=== PATIENT | male | born 1965 | race African-American/Black ===

== ENCOUNTER 2022-05-17 05:33 | Inpatient (IN) | payer MEDICAID, SELFPAY ==
[2022-05-17] VITALS (44 sets, daily range): BP systolic 160–199; BP diastolic 107–137; PULSE 74–114; RESP 11–27; TEMP 36.3–36.8; O2SAT 95–100; BMI 29.5
--- NOTE | 2022-05-17 | ECHO_ITS ---
Patient Info Name: Piter Donahue Age: 56 years : 1965 Gender: Male Ht: 72 in Wt: 200 lbs BSA: 2.16 m2 HR: 93 bpm BP: 188 / 128 mmHg Heart Rhythm: Sinus Rhythm Technical Quality: Good Exam Date: 05/17/2022 2:01 PM Exam Location: [facility] Patient Status: Inpatient Admit Date: 05/17/2022 Staff Ordering Physician: Ashley Garner NP Product Designer: Olga Walker RDCS Attending Provider: Krista Hodgson MD Referring Physician: Pascual VINCENT; Exam Type: CA echo dop color flow w con Study Info Indications - pulmonary edema Complete two-dimensional, color flow and Doppler transthoracic echocardiogram is performed with contrast to opacify the left ventricle and to improve the deliniation of the left ventricle endocardial borders. Contrast/Agitated Saline Contrast/Ag. Saline: Definity Amount: 3.00 ml Administered By: Olga Walker RDCS Existing IV Access: Yes IV Access Condition: patent with no signs of infiltration Summary 1. Mild left ventricular enlargement with severe eccentric hypertrophy. Moderate global hypokinesis with no segmental wall motion abnormalities. Ejection fraction 40-45%. The myocardium had an unusual echodense texture of uncertain significance. 2. Left atrial chamber dimension is moderately enlarged. 3. There is mild aortic valve regurgitation. 4. There is mild mitral valve regurgitation. 5. There is mild tricuspid valve regurgitation. 6. Mild pulmonary hypertension, estimated pulmonary arterial systolic pressure is 41 mmHg. 7. Dilated sinus of Valsalva, 4.5 cm. 8. Normal sinus rhythm. Left Ventricle Left ventricular chamber dimension is mildly enlarged. Left ventricular systolic function is moderately reduced, estimated at 40-45%. There is mild concentric increased left ventricular wall thickness. Left ventricular septal wall motion is normal. The left ventricular diastolic function is grade III diastolic dysfunction. Right Ventricle Right ventricular chamber dimension is normal. Right ventricular systolic function is normal. Left Atria Left atrial chamber dimension is moderately enlarged. Right Atria Right atrial chamber dimension is normal. Aortic Valve The aortic valve is trileaflet. There is no aortic valve sclerosis. There is no aortic valve stenosis. There is mild aortic valve regurgitation. Pulmonic Valve The pulmonic valve is normal. There is no pulmonic valve stenosis. There is no pulmonic regurgitation. Mitral Valve The mitral valve has normal leaflets. There is no mitral valve stenosis. There is mild mitral valve regurgitation. Tricuspid Valve The tricuspid valve leaflets are normal. There is no significant tricuspid valve stenosis. There is mild tricuspid valve regurgitation. Mild pulmonary hypertension, estimated pulmonary arterial systolic pressure is 41 mmHg. Pericardium/Pleural The pericardium appears normal. There is no pericardial effusion. Inferior Vena Cava Normal inferior vena cava with >50% collapse upon inspiration consistent with Empty right atrial pressure, 10 mmHg. Aorta The aortic root size at the sinus of Valsalva is mildly dilated. The prox ascending aorta size is normal. Left Ventricular Outflow Tract Name Value Normal
--- NOTE | ~2022-05-17 | XR_ITS ---
EXAMINATION: XR fl guide central line place DATE: 05/19/2022 12:51 INDICATION: Central line placement. TECHNIQUE: 2 intraoperative fluoroscopic views of the chest were obtained. I was not present. Fluoros copy exposure time was 99 seconds. COMPARISON: Chest single view 05/19/2022 FINDINGS: A right internal jugular central venous catheter is seen with tip in the proximal right atr ium. IMPRESSION: 1. Central line tip in proximal right atrium. Reviewed, dictated and finalized at location A. COOK
--- NOTE | ~2022-05-17 | CT_ITS ---
EXAMINATION: CTA chest PE protocol DATE: 05/17/2022 06:52 INDICATION: Shortness of breath. TECHNIQUE: Computed tomography angiography (CTA) of the chest was performed with 100 mL Omnipaque-350 intravenous contrast timed to evaluate the pulmonary arteries. Coronal maximum intensity projection 3D-reconstructions were created by the technologist. Automated exposure control and iterative reconst ruction technique were employed. The dose-length product was 533.80 mGy-cm. COMPARISON: Chest 2 views 05/17/2022 FINDINGS: There is septal thickening in the lungs with a lower lung predominance. There are dependent groundglass opacities in the lower lobes. There is a small cluster of nodules measuring up to 3 mm i n right upper lobe, likely benign. There are trace pleural effusions. Cardiomegaly is noted. There is a multinodular goiter extending into the mediastinum with rightward displacement of the trachea. The re is mild mediastinal lymphadenopathy. There is no pulmonary embolus. There are multiple cysts in th e liver measuring up to 5.0 cm. The partially visualized kidneys are enlarged with innumerable cysts. There is mild thoracic spondylosis. IMPRESSION: 1. Diffuse lung disease, likely moderate pulmonary edema. 2. Cardiomegaly. 3. No pulmonary embolus. Sensitivity is moderately decreased by motion artifact. 4. Polycystic kidney disease. 5. 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 6. Mild mediastinal lymphadenopathy, likely reactive. Reviewed, dictated and finalized at location A. E OPT[employer] JOINTER IMPRESSION: 1. Diffuse lung disease, likely moderate pulmonary edema. 2. Cardiomegaly. 3. No pulmonary embolus. Sensitivity is moderately decreased by motion artifact . 4. Polycystic kidney disease. 5. 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 6. Mild mediastinal lymphadenopathy, likely reactive.
--- NOTE | ~2022-05-17 | XR_ITS ---
EXAMINATION: XR chest 1V portable DATE: 05/19/2022 06:34 INDICATION: Pulmonary edema. TECHNIQUE: A single frontal view of the chest was obtained. COMPARISON: Chest single view 05/17/2022, chest CT 05/17/2022 FINDINGS: There is no pneumonia, pleural effusion, or pneumothorax. Cardiomegaly is noted. There is a n intrathoracic goiter with rightward displacement of the trachea. IMPRESSION: 1. Cardiomegaly. 2. Intrathoracic goiter. Reviewed, dictated and finalized at location A. AGE SUPERVISOR
--- NOTE | ~2022-05-17 | XR_ITS ---
EXAMINATION: XR chest 1V portable DATE: 05/25/2022 06:32 INDICATION: Confusion. TECHNIQUE: A single frontal view of the chest was obtained. COMPARISON: Chest 2 views 05/21/2022, chest CT 05/17/2022 FINDINGS: There is no pneumonia, pleural effusion, or pneumothorax. Cardiomegaly is noted. There is a n intrathoracic goiter with rightward displacement of the trachea. A right internal jugular central v enous catheter is seen with tip in the right atrium. IMPRESSION: 1. Cardiomegaly. 2. Intrathoracic goiter. Reviewed, dictated and finalized at location A. ER FABRICATOR
--- NOTE | ~2022-05-17 | XR_ITS ---
EXAMINATION: XR chest 2V DATE: 05/21/2022 10:42 INDICATION: Pulmonary edema TECHNIQUE: AP and lateral views of the chest are obtained. COMPARISON: 05/19/2022 FINDINGS: The lungs are free of acute opacities. No pleural effusion or pneumothorax. Cardiomegaly is noted. A right internal jugular central venous catheter ends with its tip in the proximal right atri um. The visualized bones and soft tissues are unremarkable. IMPRESSION: 1. Cardiomegaly. Reviewed, dictated and finalized at location A. E TREKKING GUIDE IMPRESSION: 1. Cardiomegaly.
--- NOTE | ~2022-05-17 | NM_ITS ---
EXAMINATION: NM lexy stress w perfusion DATE: 05/22/2022 13:44 INDICATION: Congestive heart failure. Elevated troponin. TECHNIQUE: Rest images were obtained following intravenous administration of 9 mCi Tc99m tetrofosmin (Myoview). The patient was infused intravenously with Lexiscan (regadenoson). Then, 28.3 mCi Tc99m te trofosmin (Myoview) was administered intravenously, and stress images were obtained. Data was reconst ructed into short axis and horizontal and vertical long axis SPECT images. Gated SPECT images were al so obtained. COMPARISON: Chest CT 05/17/2022 FINDINGS: There is increased activity below the diaphragm. There is no definite reversible or fixed p erfusion abnormality to suggest ischemia or infarction. There is no segmental wall motion abnormalit y. Left ventricular ejection fraction measures 51%. IMPRESSION: 1. No definite ischemia or infarct. Increased activity below the diaphragm decreases sensitivity and specificity in the inferior wall. 2. Normal left ventricular ejection fraction measuring 51%. Reviewed, dictated and finalized at location A. GER RESEARCH DEVELOPMENT IMPRESSION: 1. No definite ischemia or infarct. Increased activity below the diaphragm decr eases sensitivity and specificity in the inferior wall. 2. Normal left ventricular ejection fraction measuring 51%.
--- NOTE | ~2022-05-17 | XR_ITS ---
EXAMINATION: XR chest 2V DATE: 05/17/2022 06:34 INDICATION: Difficulty breathing. TECHNIQUE: Frontal and lateral views of the chest were obtained. COMPARISON: Chest CT 05/17/2022 FINDINGS: There is an interstitial pattern in the lungs, consistent with mild pulmonary edema. No ple ural effusion or pneumothorax. Cardiomegaly is noted. There is rightward deviation of the trachea sec ondary to a goiter. IMPRESSION: 1. Mild pulmonary edema. 2. Cardiomegaly. 3. Goiter. Reviewed, dictated and finalized at location A. DDED FILLER CIGAR MAKER MACHINE
--- NOTE | ~2022-05-17 | XR_ITS ---
EXAMINATION: XR chest 1V portable Exam Date/Time: 05/17/2022 19:30 IGNITER CAPPER HISTORY: acute dyspnea X TODAY, HX CHF, ELEVATED TROP Comparison: X-ray chest and CTPA, same date. RESULT: Lines, tubes, and devices: None. Lungs and pleura: Increased bilateral diffuse reticular opacities. Cephalization. Cardiomediastinal silhouette: Stable cardiomegaly and intrathoracic goiter with rightward tracheal d isplacement. Other: No acute osseous or upper abdominal finding. IMPRESSION: Pulmonary opacities likely represent slightly worsening interstitial edema. Reviewed, dictated and finalized at location K. TER CAPPER
--- NOTE | ~2022-05-17 | US_ITS ---
EXAMINATION: US thyroid DATE: 05/17/2022 15:23 INDICATION: Goiter. TECHNIQUE: Multiple ultrasound images of the thyroid were obtained. COMPARISON: None. FINDINGS: The right thyroid lobe measures 6.3 x 2.0 x 1.3 cm. The left thyroid lobe measures 7.0 x 4.0 x 6.5 c m. There is normal echotexture and echogenicity throughout the thyroid gland. Small, 3 mm cyst in th e right isthmus of doubtful clinical significance. 5.7 x 4.1 x 5.2 cm solid isoechoic, wider than leo l, circumscribed left thyroid nodule, with no internal echogenic foci. Normal vascular flow is presen t. IMPRESSION: 1. Moderately suspicious (TR 4) 5.7 cm left thyroid nodule, recommend FNA for further characterizatio n. Reviewed, dictated and finalized at location K. CTOR OF SECURITIES AND REAL ESTATE IMPRESSION: 1. Moderately suspicious (TR 4) 5.7 cm left thyroid nodule, recommend FNA for f urther characterization.
--- NOTE | ~2022-05-17 | US_ITS ---
EXAMINATION: US FNA w image guidance DATE: 05/26/2022 09:46 INDICATION: Thyroid nodule. TECHNIQUE: The procedure and its benefits and risks were discussed with the patient. Risks specifically discusse d included bleeding. The patient verbalized understanding of the risks and agreed to proceed. The nec k was prepped and draped in the usual sterile manner. 1% lidocaine was used for local anesthesia. 7 passes were made with a 25G needle into the lesion under ultrasound guidance. There were no immedia te complications. FINDINGS: Grayscale ultrasound images demonstrate needles advanced into a 5.7 cm nodule in left thyroid lobe fo r biopsy. IMPRESSION: 1. Ultrasound-guided fine needle aspiration of a left thyroid nodule. Reviewed, dictated and finalized at location A. OID DEVELOPER
--- NOTE | ~2022-05-17 | US_ITS ---
EXAMINATION: US renal BI DATE: 05/17/2022 07:57 INDICATION: Polycystic kidney disease. TECHNIQUE: Multiple ultrasound grayscale images of the kidneys were obtained. COMPARISON: Chest CT 05/17/2022 FINDINGS: The right kidney measures 20.9 x 12.2 x 11.3 cm. The left kidney measures 24.4 x 13.0 x 14.1 cm. Innu merable cysts fill the kidneys measuring up to 7.9 cm on the right. There is no hydronephrosis. The b ladder is decompressed and not visualized. IMPRESSION: 1. Polycystic kidney disease. Reviewed, dictated and finalized at location A. FACTURED BUILDINGS SUPERVISOR
--- NOTE | ~2022-05-17 | XR_ITS ---
Portable chest x-ray Comparison: 05/19/2022 at 5:55 AM Clinical History: Line placement Findings: Status post interval placement of right-sided central venous line, tip in the right atrium . Lungs are clear, without focal consolidation or pleural effusion. No pneumothorax. Cardiomediastin al silhouette is stable. Bones and soft tissues are unremarkable. Impression: Support line, as above. Clear lungs. Reviewed, dictated and finalized at location [] DENTIAL LAWN SPECIALIST Impression: Support line, as above. Clear lungs.
--- NOTE | 2022-05-17 05:37 | ECG_ITS ---
Measurements Intervals [place] Rate: 98 P: 50 OK: 132 QRS: -16 QRSD: 91 T: 134 QT: 382 QTc: 489 Interpretive Statements SINUS RHYTHM POSSIBLE LEFT ATRIAL ENLARGEMENT [-0.1mV P WAVE IN V1/V2] POSSIBLE LEFT VENTRICULAR HYPERTROPHY [VOLTAGE CRITERIA PLUS LAE OR QRS WIDENING] MODERATE T-WAVE ABNORMALITY, CONSIDER LATERAL ISCHEMIA [-0.1+ mV T WAVE IN I/aVL/V5/V6] NO PREVIOUS ECG AVAILABLE FOR COMPARISON Electronically Signed On 05-17-2022 13:19:44 ACID TESTER by Sawyer Woods M.D.
[2022-05-17] MEDS: NITROGLYCERIN OINTMENT 1 INCH DOSE TRANSDERM (05:53)
[2022-05-17 05:57] LABS: Basophils Percent Auto 0.5 % (0.2-1.2); Eosinophils Absolute Auto 0.4 K/mm3 (0-0.3); Hematocrit 23.5 % (42.0-52.0); Hemoglobin 7.5 g/dL (14.0-18.0); Immature Granulocyte Absolute 0.03 K/mm3 (0.00-0.031); Immature Granulocyte Percent A 0.4 % (0-0.5); Lymphocytes Absolute Auto 1.74 K/mm3 (0.9-3.2); Lymphocytes Percent Auto 22.9 % (18.3-44.2); Mean Corpuscular HGB Conc 31.9 g/dl (32-36); Mean Corpuscular Hemoglobin 28.7 pg (26-34); Mean Platelet Volume 9.9 fl (7.4-10.4); Monocytes Absolute Auto 0.5 K/mm3 (0.1-0.6); Monocytes Percent Auto 6.9 % (2.6-8.5); Neutrophils Absolute Auto 4.9 K/mm3 (1.3-6.7); Neutrophils Percent Auto 64.3 % (45.5-73.1); Platelet Count Result 191 k/mm3 (150-375); Red Blood Count 2.61 M/mm3 (4.6-6.20); Red Cell Distribution Width 14.2 % (11.5-14.5); White Blood Count 7.6 K/mm3 (4.5-10.0)
--- NOTE | 2022-05-17 05:59 | ED.GENADULT ---
HPI - General Adult General Chief complaint: Shortness of Breath/Dyspnea Stated complaint: DIFFICULTY BREATHING Time Seen by Provider: 05/17/22 05:48 History of Present Illness HPI narrative: This is a 56-year-old male presenting ED with difficulty breathing. Patient says that over last several days it has been getting worse. It is worse at night when he tries to lay flat. He has also noticed swelling of his lower extremities. Patient also notes that food has been tasting more bland than usual. He is vaccinated against COVID. He is not vaccinated against flu.Patient denies fever, chills, chest pain. The patient called EMS tonight when he had acutely worse. EMS treated him with aspirin and nitro which helped improve his symptoms. Related Data Allergies Allergy/AdvReac Type Severity Reaction Status Date / Time No Known Allergies Allergy Verified 05/17/22 06:41 Review of Systems Review of Systems: CONSTITUTIONAL: Denies night sweats. EYES: No eye pain ENT: Denies rhinorrhea CARDIOVASCULAR: Denies palpitations RESPIRATORY: Denies hemoptysis GASTROINTESTINAL: Denies hematemesis GENITOURINARY: Denies hematuria. SKIN: Denies rash MUSCULOSKELETAL: Denies myalgia. NEUROLOGIC: Denies weakness. PSYCHIATRIC: Denies delusions PMFSH Past Medical History Medical History Healthy adult male Social History Social History (Updated 05/17/22 @ 06:03 by Eduard Gooden MD) Social History: Negative for alcohol cigarettes or tobacco. Exam Narrative: APPEARANCE: No apparent distress. Patient appears younger than his stated age he is physically fit, he has played during the interview. Head: atraumatic. EYES: EOMI, NOSE: Atraumatic NECK: Trachea midline RESPIRATORY: Increased respiratory rate, scattered rhonchi in the right lower lobe. CARDIOVASCULAR: RRR, Tachycardic ABDOMINAL: Non-distended, nontender no guarding or rebound MUSCULOSKELETAl: No obvious deformities NEURO: Alert. Moving 4/4 extremities SKIN:: Warm, dry. Normal color PSYCHIATRIC: Normal affect point of care cardiac ultrasound revealed norm ir normal to mildly decreased EF. There are scattered B-lines indicating pulmonary edema which can be seen with infiltrates versus viral pneumonia. Incidental findings include 2 cystic structures in the region of the kidneys. Medical Decision Making MDM Narrative Medical decision making narrative: This is a 56-year-old male presenting to ED with difficulty breathing. differential includes flash pulmonary edema, new onset heart failure, COVID 19 infection, pneumonia. Cardiac ultrasound showed diffuse B lines which have consistent with pulmonary edema. Patient was given transdermal nitro paste. While doing a cardiac ultrasound I did see the patient has multiple cystic structures where his kidneys should be. He has no history of kidney dysfunction, or family history of renal failure. Renal ultrasound has been ordered to evaluation. patient will be worked up for on differentiated shortness of breath including lab work, EKG and chest x-ray. EKG interpretation: Rhythm [sinus], Rate 98, [place] -[normal], [place] -[normal], QRS [narrow], QTC [normal], T waves - T-wave inversions in 1 and aVL, ST Segments - [Negative for concerning elevations] Final interpretations: normal sinus rhythm with T-wave inversions in 1 and aVL flu swabs were negative. D-dimer was elevated and a CT PE was ordered. CT PE was interpreted: IMPRESSION: 1. Diffuse lung disease, likely moderate pulmonary edema. 2. Cardiomegaly. 3. No pulmonary embolus. Sensitivity is moderately decreased by motion artifact. 4. Polycystic kidney disease. 5. 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 6. Mild mediastinal lymphadenopathy, likely reactive. Patient's lab work was significant for hemoglobin of 7.5. Additionally his BUN is 131 with a creatinine of 21.5. Potassium is 4
[2022-05-17 06:09] LABS: INR 1.1; Prothrombin Time 13.4 Seconds (11.1-14.7)
[2022-05-17 06:10] LABS: Partial Thromboplastin Time 29.7 SECONDS (22.3-36.8)
[2022-05-17 06:16] LABS: Alanine Aminotransferase 28 U/L (6-50); Albumin Level 3.3 g/dL (3.5-5.1); Alkaline Phosphatase 95 U/L (38-126); Anion Gap 11 mmol/L (8-16); Aspartate Amino Transferase 34 U/L (17-59); Bilirubin,Total 0.2 mg/dL (0.2-1.3); Carbon Dioxide 18 mmol/L (22-30); Chloride 110 mmol/L (98-107); Glucose 104 mg/dL (65-110); NT Pro B Type Natriuretic Pept 13100 pg/mL (5-100); Potassium 4.6 mmol/L (3.4-5.0); Sodium 139 mmol/L (137-145)
[2022-05-17 06:18] LABS: D Dimer 2.59 ug/mL (<0.48)
[2022-05-17 06:27] LABS: Influenza A QL RT-PCR Negative (Negative); Influenza B QL RT-PCR Negative (Negative); RSV RNA, RT-PCR Negative (Negative); SARS-CoV-2 RNA PCR Negative
[2022-05-17 06:39] LABS: Blood Urea Nitrogen 131 mg/dL (9-20)
[2022-05-17 06:52] LABS: Troponin I 0.102 ng/mL (0.000-0.034)
[2022-05-17 07:04] LABS: Estimated Glomerular Filt Rate 3
[2022-05-17 12:16] LABS: Troponin I 0.125 ng/mL (0.000-0.034)
--- NOTE | 2022-05-17 12:37 | PM.IMHP ---
H&P: HPI History of Present Illness Date/Time: 05/17/22 12:37 Chief Complaint: Shortness of breath Narrative: This is a 56-year-old male patient presenting to the emergency room with complaints of shortness of breath. The patient has no medical history and is not taking any medication. The patient stated over the last several days he has become more short of breath and cannot lay flat when sleeping at night. He also has edema to his lower extremities. The patient denied any fever chills or chest pain. The patient activated EMS and was given nitro and aspirin in route. Patient's H&H is 7.5 and 23.5. His D-dimer was 2.59. BUN is 131 creatinine 21.5. Nephrology has been consulted. Troponin 0.10 and 0.125 BNP [id number]. He is negative for influenza a B RSV and COVID. Renal ultrasound was read as polycystic kidney disease. Chest CTA was read as the following1. Diffuse lung disease, likely moderate pulmonary edema. 2. Cardiomegaly. 3. No pulmonary embolus. Sensitivity is moderately decreased by motion artifact. 4. Polycystic kidney disease. 5. 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 6. Mild mediastinal lymphadenopathy, likely reactive. Chest x-ray was read as some mild pulmonary edema. Cardiomegaly. Goiter Patient's blood pressures were 199/130 and 173/124. The patient was given nitro paste, labetalol, hydralazine, and Bumex the patient is being admitted to inpatient status on the date of service of 05/17/2022.. Review of Systems Review of Systems: See HPI All systems reviewed & are unremarkable except as noted in HPI and below Constitutional: Constitutional: Reports as per HPI and Reports no additional constitutional complaints Eyes: Eyes: Reports as per HPI and Reports no additional eye complaints ENT: Reports system reviewed and no additional complaints, except as documented and Reports Normal hearing present Cardiovascular: Cardiovascular: Reports no additional cardiovascular complaints Respiratory: Respiratory: Reports no additional respiratory complaints and Reports no additional respiratory complaints Gastrointestinal: Gastrointestinal: Reports as per HPI and Reports no additional gastrointestinal complaints Musculoskeletal: Musculoskeletal: Reports no additional musculoskeletal complaints Integumentary/Breasts: Skin/Breast: Reports system reviewed and no additional complaints, except as docu and Reports as per HPI Neurologic: Reports system reviewed and no additional complaints, except as documented, Reports as per HPI and Reports Normal hearing present Psychiatric: Psychiatric: Reports no additional psychiatric complaints and Reports as per HPI Endocrine: Endocrine: Reports no additional endocrine complaints Hematologic/Lymphatic: Hematologic/Lymphatic: Reports no additional hematologic/lymphatic complaints Allergic/Immunologic: Allergic/Immunologic: Reports no additional allergic/immunologic complaints PMF Past Medical History Medical History (Updated 05/17/22 @ 14:32 by Ashley Garner NP) Healthy adult male Surgical History Surgical History (Updated 05/17/22 @ 12:37 by Ashley Garner NP) No significant past surgical history Family History Family History (Updated 05/17/22 @ 12:38 by Ashley Garner NP) Sibling Heart disease Social History Social History (Updated 05/17/22 @ 14:20 by Ashley Garner NP) Social History: Negative for alcohol cigarettes or tobacco. 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 His brother Gavino romero is the poa. He has One child who is an adult. He is . Code status full code Smoking status: Never smoker Second hand tobacco smoke exposure: No Alcohol intake: former Substance use: never Meds Home Medications and Allergies Allergies Allergy/AdvReac Type Severity Reaction Status Date / Time No Known Allergies Allergy Verified 05/17/22 06:41 Vital Signs Vital Signs - 24 hr 05/17/22
[2022-05-17] MEDS: LABETALOL HCL INJ 100 MG/20 ML VIAL 20 MG IV PUSH ×2 (12:58→20:21)
[2022-05-17] MEDS: BUMETANIDE INJ 1 MG/4 ML VIAL IV PUSH (12:58)
[2022-05-17] MEDS: hydrALAZINE HCL 20 MG/ML VIAL 10 MG IV PUSH (13:50)
[2022-05-17] MEDS: PERFLUTREN LIPID MICROSPHERES 1.5 ML VIAL DILUTED TO 10 ML TOTAL VOLUME IV PUSH (14:02)
--- NOTE | 2022-05-17 15:05 | PM.CNCAR ---
Assessment and Plan Assessment and plan (1) Acute diastolic CHF (congestive heart failure): Code(s): I50.31 - Acute diastolic (congestive) heart failure Status: Acute Assessment and Plan: Pt presents with acute diastolic CHF, likely due to ARF and uncontrolled HTN. Responding to Bumex X1. HOlding off on further diuretic due to elevated CPK, unless OK w/ Dr. Holcomb Echo pending Start BB Tx HTN (2) Hypertensive urgency: Code(s): I16.0 - Hypertensive urgency Status: Acute Assessment and Plan: Hypertensive urgency Added amlodipine, metoprolol Added IV labetolol (3) Elevated troponin: Code(s): R77.8 - Other specified abnormalities of plasma proteins Status: Acute Assessment and Plan: Mildly elevated troponin Had some chest tightness, but I suspect troponins elevation is due to HTN and CHF EKG w/ lateral ischemia vs LVH Follow trop curve (4) Acute kidney failure: Code(s): N17.9 - Acute kidney failure, unspecified Status: Acute Assessment and Plan: ARF; found to have polycystic kidneys by CT Also noted to have a ESR of >140 Dr. Holcomb consulted (5) Anemia of chronic disease: Code(s): D63.8 - Anemia in other chronic diseases classified elsewhere Status: Acute Assessment and Plan: NCNC anemia Likely due to CKD Being evaluated by the hospitalists for other causes (6) Elevated CPK: Code(s): R74.8 - Abnormal levels of other serum enzymes Status: Acute Assessment and Plan: CPK of 2400 noted. Rhabdomyolysis? Cause? Will hold off on aggressive diuresis unless ordered by Dr. Holcomb (7) Goiter: Code(s): E04.9 - Nontoxic goiter, unspecified Status: Acute Assessment and Plan: Noted, being eval by hospitalists. History of Present Illness History of Present Illness Consult date/time: 05/17/22 15:05 Reason For Visit: polycystic kidney disease Narrative: Piter Donahue is a 56 y.o. male whom i was asked to see at the request of Dr. Joe Payne for my advice and opinion regarding his elevated troponin and BNP, in consultation. Mr. Donahue has been previously healthy and has never been told he had any HTN, kidney dz or heart dz. He last saw a doctor about 3 years ago. He's never been hospitalized. He exercises daily with his fraternal twin brother, and was walking on the treadmill even this weekend. For about a week the pt has been having PND. Starting this w/e he started having labored breathing, he was unable to get air, and felt breathless. He had a lot of PND last night and today he getting into the car to come to the ER but he felt very SOB, constricted, with chest tightness and became very anxious. HE called 911 and was brought to the ER w/ CHF and a systolic blood pressure 194/128. He's been found to have CHF and a creatinine of 21. His CT showed polycystic kidney dz. He's rec'd Bumex IVP w/ good results, Labetolol IVP and hydralazine IVP X 1 with marginal improvement of his BP. He has not noted any abdominal distension, edema, or decrease in urine output. Review of Systems Constitutional: Constitutional: Denies fever(s) Eyes: Eyes: Reports no additional eye complaints ENT: Denies nasal congestion Cardiovascular: Cardiovascular: Reports chest pain, Denies pedal edema, Denies lightheadedness and Reports dyspnea Respiratory: Respiratory: Denies chest congestion, Reports dyspnea and Reports dyspnea on exertion Gastrointestinal: Gastrointestinal: Denies abdominal pain, Denies bloating and Denies hematochezia Genitourinary: Genitourinary: Denies hematuria and Denies dysuria Musculoskeletal: Musculoskeletal: Reports no additional musculoskeletal complaints Integumentary/Breasts: Skin/Breast: Reports system reviewed and no additional complaints, except as docu Neurologic: Reports system reviewed and no additional complaints, except as document
[2022-05-17 15:31] LABS: Complement C3 87 mg/dL (88-165)
[2022-05-17 15:52] LABS: Alanine Aminotransferase 26 U/L (6-50); Albumin Level 3.1 g/dL (3.5-5.1); Alkaline Phosphatase 76 U/L (38-126); Anion Gap 12 mmol/L (8-16); Aspartate Amino Transferase 29 U/L (17-59); Bilirubin,Total 0.2 mg/dL (0.2-1.3); CRP < 0.5 mg/dL (<1.0); Calcium 5.1 mg/dL (8.4-10.2); Carbon Dioxide 16 mmol/L (22-30); Chloride 109 mmol/L (98-107); Glucose 138 mg/dL (65-110); Magnesium 1.6 mg/dL (1.6-2.3); Phosphorus 5.8 mg/dL (2.5-4.5); Potassium 4.6 mmol/L (3.4-5.0); Sodium 137 mmol/L (137-145)
[2022-05-17 15:53] LABS: Erythrocyte Sedimentation Rate > 140 mm/hr (0-20)
[2022-05-17 16:06] LABS: Creatine Kinase 2401 U/L (55-170); Estimated Glomerular Filt Rate 3
--- NOTE | 2022-05-17 16:23 | PM.CNNEP ---
Assessment and Plan Assessment and plan (1) End stage renal disease: Code(s): N18.6 - End stage renal disease Status: Chronic Assessment and Plan: presumably due to unknown/undiagnosed polycystic kidney disease suspect issues with HTN, pulmonary edema, and anemia all related to this denies any family history of kidney disease suspect will need ELECTRICAL EXPERIMENTAL MECHANIC/dialysis to correct the above issues (2) Adult polycystic kidney disease: Code(s): Q61.2 - Polycystic kidney, adult type Status: Acute Assessment and Plan: unclear if family history present (autosomal dominant) versus another varient clear evidence noted by renal ultrasound and CT scan may require further intervention (debulking versus embolization versus other) in the future (3) Acute diastolic CHF (congestive heart failure): Code(s): I50.31 - Acute diastolic (congestive) heart failure Status: Acute Assessment and Plan: as still has residual kidney function, not opposed to diuresis suspect fluid removal with dialyis will be more effective follow respiratory status (4) Acute respiratory failure: Code(s): J96.00 - Acute respiratory failure, unspecified whether with hypoxia or hypercapnia Status: Acute Assessment and Plan: due to pulmonary edema CTA of chest negative for PE (surprised contrast study done given renal dysfunction) BIPAP therapy as needed (5) Anemia of chronic disease: Code(s): D63.8 - Anemia in other chronic diseases classified elsewhere Status: Acute Assessment and Plan: most likely secondary to ESRD check iron studies dose with Epogen follow trend of H/H if possible, try to avoid PRBC transfusion as he is a possible candidate for renal transplantation (6) Hypertensive urgency: Code(s): I16.0 - Hypertensive urgency Status: Acute Assessment and Plan: started on antihypertensive regiment may improve further with dialysis initiation if patient agreeable Long and extensive discussion with patient > 20 min) regarding the severity of his kidney disease/ renal failure in association with complications related to this phenomenon including his hypertension, metabolic acidosis, anemia, volume overload/ pulmonary edema, and overt uremia. As I do not think his renal failure is reversible given evidence to date of his polycystic kidney disease, I have recommended that he consider initiation on renal replacement therapy /dialysis as a definitive treatment for this issue. He will think about it overnight but he seems to be leaning towards this intervention given how he currently feels. Will continue to follow. History of Present Illness Reason for Consult Consult date: 05/17/22 Reason for consult: acute renal failure (versus chronic kidney disease) Chief Complaint Chief complaint: polycystic kidney disease History of Present Illness Narrative: The patient is 56-year-old male who presented to [facility] Emergency room with complaints of shortness of breath. The patient has not seen a doctor in several years and according to that, he has not does not have any other past medical issues or problems and is not on any medications. However, he has noted over the last several days that he is becoming more and more short of breath. Initially, the shortness of breath was tolerable but then it has progressively worsened to the point where he is unable to lay flat when sleeping because of his shortness of breath. He has also noticed increased swelling and edema to his lower extremities as well but denies any other subjective symptoms with regard to fevers, chills, chest pain, nausea, vomiting, or diarrhea. Has shortness of breath continued to deteriorate, he called 911 for further assistance and EMS transferred him to the emergency room for further assessment. It should be noted that he was given nitroglycerin as well as aspirin
[2022-05-17 16:25] LABS: HIV 1/2 Ab P24 Ag Result Negative (Negative)
--- NOTE | 2022-05-17 16:27 | IVDEFINITY ---
Prior to administration of IV Definity the patient was educated on the risks and benefits of the imaging enhancing agent including potential adverse side effects. The patient verbalized understanding. Allergies were verified. No exclusion criteria were identified and at least one of the following inclusion criteria were met: 1) physician request, 2) patient technically difficult to image (per the [place] [employer]chocardi[employer] guidelines of two or more segments not discernable within the apical view), or 3) questionable left ventricular function. ?
[2022-05-17 16:38] LABS: Hepatitis B Surface Anti Res Negative
[2022-05-17 16:42] LABS: Hepatitis B Surface Antigen Negative (Negative); Hepatitis C Virus Antibody Negative (Negative)
[2022-05-17] MEDS: METOPROLOL TARTRATE 25 MG TABLET PO ×2 (17:09→22:05)
[2022-05-17] MEDS: amLODIPine BESYLATE 5 MG TABLET PO (17:09)
--- NOTE | 2022-05-17 19:31 | PC.NURSE ---
patient called out he was short of breath states he feels like im breathing through a sponge. per ed provider patient was placed on 2 l o2 per nasal canula patient o2 sat at this time is 99% on 2 l
[2022-05-17 19:50] LABS: Alveolar/Arterial O2 Gradient 93.7 mmHg; Base Excess ABG -9.2 mEq/l (+/-2.0); Carboxyhemoglobin 0.3 % THb (0-2.0); Device NON-INVASIVE VENT; Fractional Inspired Oxygen 50 %; HCO3 ABG 15.3 mEq/l (22.0-26.0); Methemoglobin ABG 0.2 %THb (0-1.5); Modified Allen's Test Pass; Oxygen Content ABG 12.7 %vol (16.0-22.0); Oxygen Saturation ABG 99.5 % (95.0-100.0); PCO2 ABG 28.5 mmHg (35.0-45.0); PO2 ABG 230.7 mmHg (80.0-100.0); PO2 FiO2 Ratio Arterial Blood 4.61 %; Reduced Hemoglobin 1.5 %THb (0-5.0); Site Drawn RIGHT RADIAL; Total Hemoglobin 8.8 g/dL (12.0-18.0); pH ABG 7.348 (7.350-7.450)
[2022-05-17 19:51] LABS: Non-Invasive Expiratory Pressure 5 CMH2O; Non-Invasive Inspiratory Pressure 12 CMH2O; Non-Invasive Vent Rate 16 /MIN
[2022-05-17 20:19] LABS: Eosinophil Urine None Seen % (None Seen)
[2022-05-17 20:26] LABS: Blood Urea Nitrogen 130 mg/dL (9-20)
[2022-05-17 20:39] LABS: Add Urine Microscopic? YES; Appearance Urine Clear (Clear); Bilirubin Urine Negative (Negative); Blood Urine 2+ (Negative); Color Urine Light Yellow (Yellow); Glucose Urine UA Negative (Negative); Ketones Urine Negative (Negative); Leukocyte Esterase Ur Negative LEU/UL (NEGATIVE); Nitrate Urine Negative (Negative); Protein Urine 2+ mg/dL (Negative); Specific Grav Ur 1.015 (1.001-1.035); Urobilinogen Urine 0.2 mg/dL (<2.0); pH Urine 5.5 (5.0-9.0)
[2022-05-17 20:42] LABS: Creatinine Urine 73.7 mg/dL
[2022-05-17 20:43] LABS: Potassium Urine Random 21.1 meq/L; Sodium Urine Random 90 meq/L
[2022-05-17 20:44] LABS: WBC Urine 0-3 /hpf (0-3)
[2022-05-17 20:52] LABS: Total Protein Urine Random 245 mg/dL; Ur Ttl Prot Creatinine Ratio 3.32 mg/mg (0-0.20)
--- NOTE | 2022-05-17 21:19 | ADMGEN ---
This patient, Piter Donahue, was admitted to IMU Room 201-01. Patient/family oriented to hospital policies and general routines including ID bracelet, bed and alarms, visiting hours, pain management, procedures, bathroom and other care routines, personal items, smoking policy, room service/diet, and visiting hours. Information on how to activate the Rapid Response Team has been discussed. Patient/Family are encouraged to report perceived risks to care and to ask questions if they do not understand what they are told or what they should do.
[2022-05-17 21:47] LABS: Hepatitis B Core IgM Result Negative (Negative)
[2022-05-17] MEDS: HEPARIN SODIUM 5,000 UNITS/ML VIAL 5000 UNITS SUB-Q (22:04)
[2022-05-18] VITALS (16 sets, daily range): BP systolic 132–167; BP diastolic 79–106; PULSE 76–101; RESP 14–25; TEMP 36.1–37.2; O2SAT 99–100
[2022-05-18 05:15] LABS: Basophils Percent Auto 0.4 % (0.2-1.2); Eosinophils Absolute Auto 0.2 K/mm3 (0-0.3); Eosinophils Percent Auto 4.7 % (0-4.4); Hematocrit 22.7 % (42.0-52.0); Immature Granulocyte Absolute 0.01 K/mm3 (0.00-0.031); Immature Granulocyte Percent A 0.2 % (0-0.5); Lymphocytes Absolute Auto 1.26 K/mm3 (0.9-3.2); Lymphocytes Percent Auto 25.7 % (18.3-44.2); Mean Corpuscular HGB Conc 31.3 g/dl (32-36); Mean Corpuscular Volume 89.4 fl (80-100); Mean Platelet Volume 9.8 fl (7.4-10.4); Monocytes Absolute Auto 0.5 K/mm3 (0.1-0.6); Monocytes Percent Auto 9.4 % (2.6-8.5); Neutrophils Absolute Auto 2.9 K/mm3 (1.3-6.7); Neutrophils Percent Auto 59.6 % (45.5-73.1); Platelet Count Result 166 k/mm3 (150-375); Red Blood Count 2.54 M/mm3 (4.6-6.20); Red Cell Distribution Width 14.3 % (11.5-14.5); White Blood Count 4.9 K/mm3 (4.5-10.0)
[2022-05-18 05:17] LABS: Hemoglobin 7.1 g/dL (14.0-18.0)
[2022-05-18 05:31] LABS: Cholesterol 215 mg/dL (0-200); HDL Direct 68 mg/dL; Magnesium 1.7 mg/dL (1.6-2.3); Phosphorus 6.8 mg/dL (2.5-4.5); Triglycerides 88 mg/dL (<150)
[2022-05-18 05:41] LABS: LDL Cholesterol Direct 86 mg/dL
[2022-05-18 08:27] LABS: Iron 67 ug/dL (49-181)
[2022-05-18 08:36] LABS: Percent Iron Saturation 31 % (20-50)
[2022-05-18] MEDS: METOPROLOL TARTRATE 25 MG TABLET PO ×2 (08:43→21:20)
[2022-05-18 08:44] LABS: Alanine Aminotransferase 29 U/L (6-50); Alkaline Phosphatase 70 U/L (38-126); Anion Gap 10 mmol/L (8-16); Aspartate Amino Transferase 26 U/L (17-59); Bilirubin,Total 0.2 mg/dL (0.2-1.3); Calcium 5.3 mg/dL (8.4-10.2); Carbon Dioxide 16 mmol/L (22-30); Chloride 114 mmol/L (98-107); Glucose 94 mg/dL (65-110); Potassium 4.8 mmol/L (3.4-5.0); Sodium 140 mmol/L (137-145)
[2022-05-18] MEDS: ASPIRIN 81 MG ENTERIC TABLET PO (08:44)
[2022-05-18] MEDS: amLODIPine BESYLATE 5 MG TABLET PO (08:44)
[2022-05-18] MEDS: WATER FOR IRRIGATION, STERILE 1,000 ML BOTTLE 1000 ML (08:48)
[2022-05-18 08:51] LABS: Estimated CRCL calculation 4 ml/min; Estimated Glomerular Filt Rate 3
[2022-05-18 09:53] LABS: Blood Urea Nitrogen 132 mg/dL (9-20); Folic Acid > 20.0 ng/mL (2.76->20)
--- NOTE | 2022-05-18 10:12 | PM.IMPN ---
Progress Note: A&P Assessment and Plan (1) Acute respiratory failure: Code(s): J96.00 - Acute respiratory failure, unspecified whether with hypoxia or hypercapnia Status: Acute Assessment and Plan: patient presents to emergency room complaints of shortness of breath. He was noted having increased respiratory rate. His condition did worsen requiring BiPAP therapy. ABG 7.35/28/230 on BiPAP. CTA chest negative for PE but does show moderate pulmonary edema. Remained stable overnight was able to wean to nasal cannula today. [place] the respiratory failure related to pulmonary edema. Wean oxygen as tolerated. (2) Hypertensive urgency: Code(s): I16.0 - Hypertensive urgency Status: Acute Assessment and Plan: blood pressure was 194/128 on admission. Most likely related to his renal failure and polycystic kidney disease. Nitropaste was started. Norvasc and Lopressor added. Blood pressure has improved but not at goal. Continue to modify medical regiment slowly to improve blood pressure. If he requires dialysis, this should improve his blood pressure is well. Antihypertensive medications p.r.n. are available. (3) Heart failure: Code(s): I50.9 - Heart failure, unspecified Status: Acute Assessment and Plan: Chest x-ray showing pulmonary edema; confirmed by CTA chest. BNP 13K. Echo shows mild LV enlargement with severe eccentric hypertrophy and moderate global hypokinesis. Bumex given x 1. EF is 40-45% with myocardium showing an unusual echodense texture. He has mild valvular disease, mild pulmonary hypertension and severe grade 3 diastolic dysfunction. [place] patient has Acute systolic and diastolic CHF. [place] related to uncontrolled HTN and renal failure. Most likely will need to proceed with dialysis. Appreciate Cardiology and Nephrology input. (4) Elevated troponin: Code(s): R77.8 - Other specified abnormalities of plasma proteins Status: Acute Assessment and Plan: Trop 0.125 on admission. Echo as mentioned above but no wall motion abnormalities. EKG reviewed showing NSR, LVH, LAE and inverted T waves in the high lateral leads (no old EKG to compare). [place] related to CHF and/or poor renal clearance and/or from elevated TCK. Continue metoprolol, ASA. Lipid profile noted. Repeat troponin. Cardiology following. Probably will need ischemic evaluation at some point. (5) Acute kidney failure: Code(s): N17.9 - Acute kidney failure, unspecified Status: Acute Assessment and Plan: BUN 131, Cr 21.5 on admission. CTA chest showing PCKD. [place] the renal failure more chronic and unrecognized related to PCKD. UOP of 300mL overnight. Potassium okay but has metabolic nongap acidosis and fluid overload. Nephrology consulted. Labs not much better. Discussed with Nephrology who recommended GenSurg consult for tunneled catheter. Discussed with patient and he is agreeable. Add oral bicarb. Calcium low at 5.3 (corrected at 6.3). Add oral calcium. (6) Adult polycystic kidney disease: Code(s): Q61.2 - Polycystic kidney, adult type Status: Acute Assessment and Plan: As above. (7) Anemia of chronic disease: Code(s): D63.8 - Anemia in other chronic diseases classified elsewhere Status: Acute Assessment and Plan: Hgb 7.5 and stable on repeat. Iron studies noted. B12/folate normal. Most likely anemia related to the chronic kidney disease. (8) Elevated CPK: Code(s): R74.8 - Abnormal levels of other serum enzymes Status: Acute Assessment and Plan: TCK 2401. [place]? Poor clearance? Follow (9) Goiter: Code(s): E04.9 - Nontoxic goiter, unspecified Status: Acute Assessment and Plan: CTA chest showing intrathoracic goiter with rightward displacement of the trachea. Thyroid ultrasound showing a moderately suspicious 5.7cm left thyroid nodule. TSH normal. He will need a thyroid FNA
[2022-05-18 10:52] LABS: Hemoglobin A1C 5.3 % (<5.7)
[2022-05-18] MEDS: CALCIUM CHLORIDE 1,000 MG/10 ML SYRINGE 1000 MG IV PUSH (12:00)
[2022-05-18] MEDS: SODIUM BICARBONATE TAB 650 MG TABLET PO ×2 (12:00→17:25)
[2022-05-18] MEDS: CALCIUM ACETATE 667 MG TABLET PO ×2 (12:02→17:25)
[2022-05-18] MEDS: BUMETANIDE INJ 2.5 MG/10 ML VIAL IV PUSH (13:12)
[2022-05-18] MEDS: EPOETIN ALFA-EPBX 20,000 UNITS/ML VIAL 20000 UNITS SUB-Q (13:12)
[2022-05-18] MEDS: HEPARIN SODIUM 5,000 UNITS/ML VIAL 5000 UNITS SUB-Q ×2 (13:13→21:20)
--- NOTE | 2022-05-18 14:45 | WPDANESEPPF ---
Anes - Initial Pre Proc Eval Procedure: Operation Date: 05/19/22 13:00 Proposed Procedures p Insertion Tunneled Duraflow Catheter Under Fluoroscopy - Yoni Carter MD Date/Time: 05/18/22 14:45 Surgeon: Krista Hodgson MD Pre Op Diagnosis: polycystic kidney disease Patient Data Age: 56 Gender: M Height: 1.85 m Weight: 101.7 kg Last Vital Signs Temp 36.2 C L 05/18/22 12:00 Pulse 78 05/18/22 12:00 Resp 20 05/18/22 12:00 BP 132/88 05/18/22 12:00 Pulse Ox 100 05/18/22 12:00 O2 Del Method High Flow Nasal Cannula 05/18/22 12:00 O2 Flow Rate 4.5 05/18/22 12:00 FiO2 50 05/18/22 12:00 Allergies Allergy/AdvReac Type Severity Reaction Status Date / Time No Known Allergies Allergy Verified 05/19/22 10:52 Home Medications Medication Instructions Recorded Confirmed Type multivitamin with minerals-folic 1 tablet PO DAILY 05/17/22 05/17/22 History acid 0.4 mg tablet omega-3 fatty acids-fish oil 684 2 cap PO DAILY 05/17/22 05/17/22 History mg-1,200 mg capsule,delayed release Laboratory Tests 05/17/22 05/17/22 05/17/22 15:01 15:01 15:01 WBC RBC Hgb Hct MCV MCH MCHC RDW Plt Count MPV Immature Gran % (Auto) Neut % (Auto) Lymph % (Auto) [place] % (Auto) Eos % (Auto) Baso % (Auto) Lymph # (Auto) [place] # (Auto) Eos # (Auto) Baso # (Auto) Abs Immat Gran (auto) Absolute Neuts (auto) Absolute Nucleated RBC Nucleated RBC % ESR > 140 mm/hr H mm/hr (0-20) Puncture Site ABG pH ABG pCO2 ABG pO2 ABG PO2/FiO2 Ratio ABG HCO3 ABG O2 Saturation ABG O2 Content ABG Base Excess A-a Gradient Oxyhemoglobin Carboxyhemoglobin Methemoglobin Reduced Hemoglobin Total Hemoglobin O2 Delivery Device O2 Liters/Min Vent Rate FiO2 Expiratory Pressure Inspiratory Pressure Sodium 137 mmol/L mmol/L (137-145) Potassium 4.6 mmol/L mmol/L (3.4-5.0) Chloride 109 mmol/L H mmol/L (98-107) Carbon Dioxide 16 mmol/L L mmol/L (22-30) Anion Gap 12 mmol/L mmol/L (8-16) BUN 130 mg/dL H mg/dL (9-20) Creatinine 22.50 mg/dL H mg/dL (0.7-1.3) Estim Creat Clear Calc Not Reportable Estimated GFR 3 L (59 - ) Glucose 138 mg/dL H mg/dL (65-110) Hemoglobin A1c Serum Osmolality Pending Calcium 5.1 mg/dL L mg/dL (8.4-10.2) Phosphorus 5.8 mg/dL H mg/dL (2.5-4.5) Magnesium 1.6 mg/dL mg/dL (1.6-2.3) Iron TIBC % Saturation Ferritin Total Bilirubin 0.2 mg/dL mg/dL (0.2-1.3) Direct Bilirubin 0.0 mg/dL mg/dL (0-0.3) AST 29 U/L U/L (17-59) ALT 26 U/L U/L (6-50) Alkaline Phosphatase 76 U/L U/L (38-126) Total Creatine Kinase 2401 U/L H U/L (55-170) C-Reactive Protein < 0.5 mg/dL mg/dL (<1.0) Total Protein 6.0 g/dL L g/dL (6.3-8.2) Albumin 3.1 g/dL L g/dL (3.5-5.1) Boazs-7-Fjdcteejp Uhebr-6-Ehhebdbpo Bofx-4-Ixqftqti Bxcz-6-Rrbnoazb Gamma Globulins Abnorm Protein Band 1 Abnorm Protein Band 3 PEP Interpretation Triglycerides Cholesterol LDL Cholesterol Direct HDL Direct Vitamin B12 Folate
--- NOTE | 2022-05-18 15:22 | PM.PNNEP ---
Progress Note: A&P Assessment and Plan (1) End stage renal disease: Code(s): N18.6 - End stage renal disease Status: Chronic Assessment and Plan: presumably due to unknown/undiagnosed polycystic kidney disease suspect issues with HTN, pulmonary edema, and anemia all related to this suspect will need BIOMATHEMATICIAN/dialysis to correct the above issues -- he is agreeable Surgery consultation for HD catheter placement (2) Adult polycystic kidney disease: Code(s): Q61.2 - Polycystic kidney, adult type Status: Acute Assessment and Plan: unclear if autosomal dominant or another varient he does report a brother on dialysis but he is not clear on specifics clear evidence noted by renal ultrasound and CT scan may require further intervention (debulking versus embolization versus other) in the future (3) Acute diastolic CHF (congestive heart failure): Code(s): I50.31 - Acute diastolic (congestive) heart failure Status: Acute Assessment and Plan: IV diuretics as tolerated (since he still make urine) suspect fluid removal with dialysis will be more effective follow respiratory status (4) Acute respiratory failure: Code(s): J96.00 - Acute respiratory failure, unspecified whether with hypoxia or hypercapnia Status: Acute Assessment and Plan: due to pulmonary edema CTA of chest negative for PE (surprised contrast study done given renal dysfunction) BIPAP therapy as needed continue diuresis (5) Anemia of chronic disease: Code(s): D63.8 - Anemia in other chronic diseases classified elsewhere Status: Acute Assessment and Plan: most likely secondary to ESRD dose with Epogen todday and continue with HD check iron studies -- may need IV iron with HD as well follow trend of H/H if possible, try to avoid PRBC transfusion as he is a possible candidate for renal transplantation (6) Hypertensive urgency: Code(s): I16.0 - Hypertensive urgency Status: Acute Assessment and Plan: BP doing better with current medications may improve further with dialysis initiation Will continue to follow. Subjective Date/time seen: 05/18/22 15:22 Required BIPAP therapy overnight and earlier this AM to maintain his respiratory status but has been weaned to supplemental oxygen by nasal cannula; agreeable to start dialysis so Surgery consulted for HD catheter placement. Exam Narrative: General: WD/WN AA male in NAD Heart: normal S1 and S2; no rub Lungs: few crackles at bases Abdomen: soft, nontender, nondistended, positive bowel sounds Extremities: no cyanosis or clubbing; 1+ edema Skin: warm and dry Objective Data Vital Signs Vital Signs: Vital Signs Temp Pulse Resp BP Pulse Ox O2 Del Method O2 Flow Rate 05/18/22 14:43 98.9 F 77 14 146/90 H 100 05/18/22 14:00 87 05/18/22 12:00 89 05/18/22 10:00 82 05/18/22 14:45 99 High Flow Nasal Cannula 3 05/18/22 12:00 97.2 F L 78 20 132/88 100 05/18/22 12:00 100 High Flow Nasal Cannula 4.5 05/18/22 08:00 100 High Flow Nasal Cannula 6 05/18/22 08:00 77 05/18/22 09:40 100 High Flow Nasal Cannula 5 05/18/22 08:43 86 05/18/22 08:00 96.9 F L 101 H 25 H 167/106 H 100 05/18/22 05:45 76 05/18/22 04:00 97.3 F L 83 23 H 159/102 H 100 05/18/22 04:00 78 19 100 BiPAP 05/18/22 04:00 83 05/17/22 21:30 76 19 100 BiPAP 05/18/22 00:00 78 19 100 BiPAP 05/18/22 00:00 78 05/18/22 00:00 97.7 F 79 19 153/99 H 100 05/17/22 22:00 76 05/17/22 22:05 74 05/17/22 21:10 97.3 F L 89 21 H 171/108 H 100 05/17/22 21:15 78 27 H 100 BiPAP 05/17/22 20:31 86 14 100 05/17/22 20:30 88 15 164/116 H 05/17/22 20:17 88 13 100 05/17/22 20:21 89 05/17/22 20:15 86 15 171/122 H 05/17/22 2
--- NOTE | 2022-05-18 15:22 | P.PNNP_ITS ---
Progress Note: A&P Assessment and Plan (1) End stage renal disease: Code(s): N18.6 - End stage renal disease Status: Chronic Assessment and Plan: * presumably due to unknown/undiagnosed polycystic kidney disease * suspect issues with HTN, pulmonary edema, and anemia all related to this * suspect will need WIND TURBINE DESIGN ENGINEER/dialysis to correct the above issues -- he is agreeable * Surgery consultation for HD catheter placement (2) Adult polycystic kidney disease: Code(s): Q61.2 - Polycystic kidney, adult type Status: Acute Assessment and Plan: * unclear if autosomal dominant or another varient * he does report a brother on dialysis but he is not clear on specifics * clear evidence noted by renal ultrasound and CT scan * may require further intervention (debulking versus embolization versus other) in the future (3) Acute diastolic CHF (congestive heart failure): Code(s): I50.31 - Acute diastolic (congestive) heart failure Status: Acute Assessment and Plan: * IV diuretics as tolerated (since he still make urine) * suspect fluid removal with dialysis will be more effective * follow respiratory status (4) Acute respiratory failure: Code(s): J96.00 - Acute respiratory failure, unspecified whether with hypoxia or hypercapnia Status: Acute Assessment and Plan: * due to pulmonary edema * CTA of chest negative for PE (surprised contrast study done given renal dysfu nction) * BIPAP therapy as needed * continue diuresis (5) Anemia of chronic disease: Code(s): D63.8 - Anemia in other chronic diseases classified elsewhere Status: Acute Assessment and Plan: * most likely secondary to ESRD * dose with Epogen todday and continue with HD * check iron studies -- may need IV iron with HD as well * follow trend of H/H * if possible, try to avoid PRBC transfusion as he is a possible candidate for renal transplantation (6) Hypertensive urgency: Code(s): I16.0 - Hypertensive urgency Status: Acute Assessment and Plan: * BP doing better with current medications * may improve further with dialysis initiation Will continue to follow. Subjective Date/time seen: 05/18/22 15:22 Required BIPAP therapy overnight and earlier this AM to maintain his respiratory status but has been weaned to supplemental oxygen by nasal cannula; agreeable to start dialysis so Surgery consulted for HD catheter placement. Exam Narrative: General: WD/WN AA male in NAD Heart: normal S1 and S2; no rub Lungs: few crackles at bases Abdomen: soft, nontender, nondistended, positive bowel sounds Extremities: no cyanosis or clubbing; 1+ edema Skin: warm and dry Objective Data Vital Signs Vital Signs: Vital Signs Temp Pulse Resp BP Pulse Ox O2 Del Method O2 Flow Rate 05/18/22 14:43 98.9 F 77 14 146/90 H 100 05/18/22 14:00 87 05/18/22 12:00 89 05/18/22 10:00 82 05/18/22 14:45 99 High Flow Nasal Cannula 3 05/18/22 12:00 97.2 F L 78 20 132/88 100 05/18/22 12:00 100 High Flow Nasal Cannula 4.5 05/18/22 08:00 100 High Flow Nasal Cannula 6 05/18/22 08:00 77 05/18/22 09:40 100 High Flow Nasal Cannula 5 05/18/22 08:43 86 05/18/22 08:00 96.9 F L 101 H 25 H 167/106 H 100
--- NOTE | 2022-05-18 15:32 | PM.CNGS ---
Assessment and Plan Assessment and plan (1) Acute kidney failure: Code(s): N17.9 - Acute kidney failure, unspecified Status: Acute Assessment and Plan: New findings of polycystic kidney disease with acute renal failure and acute congestive heart failure. Nephrology following and planning for hemodialysis. They have requested placement of a tunneled hemodialysis catheter. I have discussed the patient's case with Dr. Carter. Description of the procedure, risks, benefits, expected outcomes, and expected recovery were discussed with the patient in detail. He agrees to proceed. We will make the patient NPO after midnight and have added him onto the surgery schedule for insertion tunneled Duraflow catheter under fluoroscopy by Dr. Carter tomorrow afternoon. (2) Adult polycystic kidney disease: Code(s): Q61.2 - Polycystic kidney, adult type Status: Acute Assessment and Plan: Nephrology following. (3) Acute diastolic CHF (congestive heart failure): Code(s): I50.31 - Acute diastolic (congestive) heart failure Status: Acute Assessment and Plan: Cardiology following and being diuresed today. (4) Acute respiratory failure: Code(s): J96.00 - Acute respiratory failure, unspecified whether with hypoxia or hypercapnia Status: Acute Assessment and Plan: Imaging suggests pulmonary edema, CTA negative for PE. He was requiring BiPAP therapy, but has been weaned to nasal cannula today. (5) Anemia of chronic disease: Code(s): D63.8 - Anemia in other chronic diseases classified elsewhere Status: Acute Assessment and Plan: Undergoing further workup of the anemia, likely related to chronic kidney disease. Hgb 7.1 this morning. Repeat labs tomorrow. (6) Hypertensive urgency: Code(s): I16.0 - Hypertensive urgency Status: Acute Assessment and Plan: Improving with current treatment. Started on oral antihypertensives, PRN IV options available but have not been used since yesterday. Most recent BP 132/88. (7) Elevated troponin: Code(s): R77.8 - Other specified abnormalities of plasma proteins Status: Acute Assessment and Plan: [place] to be related to HTN and CHF, Cardiology following. (8) Elevated CPK: Code(s): R74.8 - Abnormal levels of other serum enzymes Status: Acute Plan I have discussed the patient's case and plan of care with Dr. Crater. Thank you for allowing us to see the patient in consultation. History of Present Illness Consult details Consult date: 05/18/22 Reason for consult: other (Placement tunneled hemodialysis catheter) Requesting physician: Karel Oropeza MD Narrative: This is a 56-year-old male who we have been asked to see in consultation for placement of a tunneled hemodialysis catheter. He was previously healthy and presented to the ER yesterday for evaluation of shortness of breath. He was found to have respiratory failure, fluid overload, acute kidney injury, and elevated blood pressure. Imaging with his workup revealed pulmonary edema, polycystic kidney disease, cardiomegaly, and goiter. His labs showed creatinine 21.5, BUN 131, GFR 3, elevated troponins, BNP 13,100, TCK 2401, hemoglobin 7.5, and hematocrit 23.5. Cardiology and Nephrology are following. He is being diuresed and treated for hypertensive urgency and acute congestive heart failure. Nephrology has evaluated the patient and our service has been consulted for placement of tunneled hemodialysis catheter. The patient denies any history of heart disease, renal failure, or any other significant medical history. No previous surgeries. He was previously on BiPAP when first admitted, but has been stable on a nasal cannula throughout the day being weaned down on his oxygen per nursing. Patient reports feeling much better than when he arrived in the ER. No specific complaints or any pain at this time. Review of Systems Review of Sys
--- NOTE | 2022-05-18 16:10 | PM.PNCARD ---
Progress Note: A&P Assessment and Plan (1) Acute systolic heart failure: Code(s): I50.21 - Acute systolic (congestive) heart failure Status: Acute Assessment and Plan: responded to Bumex X1. Holding off on further diuretic due to elevated CPK, unless OK w/ Dr. Holcomb Started BB Tx HTN Counseled patient about heart failure, cardiomyopathy, hypertension (2) Cardiomyopathy: Code(s): I42.9 - Cardiomyopathy, unspecified Status: Acute Assessment and Plan: EF 40-45%. Probably hypertensive cardiomyopathy consider MRI as an outpatient guideline directed medical therapy. At this point, unable to use Entresto or an ARB, spironolactone, or Farxiga. Continue beta-fernando, add hydralazine and nitrates. (3) Hypertensive urgency: Code(s): I16.0 - Hypertensive urgency Status: Acute Assessment and Plan: Hypertensive urgency improved with amlodipine, metoprolol, IV labetalol will discontinue amlodipine in favor of hydralazine and nitrates for cardiomyopathy, titrate as blood pressure allows (4) Elevated troponin: Code(s): R77.8 - Other specified abnormalities of plasma proteins Status: Acute Assessment and Plan: Mildly elevated troponin Had some chest tightness, but I suspect troponins elevation is due to HTN and CHF EKG w/ lateral ischemia vs LVH eventual ischemic evaluation, probably a Lexiscan (5) Acute kidney failure: Code(s): N17.9 - Acute kidney failure, unspecified Status: Acute Assessment and Plan: ARF; found to have polycystic kidneys by CT Also noted to have a ESR of >140 Dr. Holcomb consulted getting dialysis catheter tomorrow (6) Anemia of chronic disease: Code(s): D63.8 - Anemia in other chronic diseases classified elsewhere Status: Acute Assessment and Plan: NCNC anemia Likely due to CKD Being evaluated by the hospitalists for other causes (7) Elevated CPK: Code(s): R74.8 - Abnormal levels of other serum enzymes Status: Acute Assessment and Plan: CPK of 2400 noted. Rhabdomyolysis? Cause? Will hold off on aggressive diuresis unless ordered by Dr. Holcomb (8) Goiter: Code(s): E04.9 - Nontoxic goiter, unspecified Status: Acute Assessment and Plan: Noted, being eval by hospitalists. Subjective Date/time seen: Follow-up for new onset of acute systolic CHF, hypertensive urgency, cardiomyopathy EF 40-45%. 05/18/22 16:10 patient was given a dose of diuretic yesterday in the emergency room, and started on amlodipine and metoprolol as well as some p.r.n. antihypertensives. feeling much better at, though still on O2.Getting hemodialysis catheter placed tomorrow. Blood pressure has been running 132-167/88-106 mmHg Echo as below. Review of Systems Review of Systems: No chest pain, breathing better, can walk to the bathroom and back without much difficulty, no dizziness, abdominal pain or swelling. Exam Const: General: cooperative, healthy appearing and comfortable; No confusion Orientation/consciousness: oriented to person, patient oriented x3 and No confusion Other: Lying nearly supine, no distress HENMT: Face/Nose/Sinus: Normal nares present Mouth: Yes moist mucous membranes Eyes: Sclera: sclerae normal EOM: EOMs intact bilaterally Neck: Neck: supple and No no JVD Thyroid: abnormal thyroid (Goiter) Resp: Effort & Inspection: normal respiratory effort Auscultation: clear to auscultation bilaterally Cardio: Rate: regular rate Rhythm: regular rhythm Heart sounds: Murmur heart sound present Other: 2/6 soft JOHN LLSB, RSB, apex, 1/6 diast murmur RSP and apex GI: Inspection: abnormal to inspection and distended GI Palp: Yes Firmness to palpation present (GI) Skin: General skin exam: normal color and no rashes or lesions noted Neuro: General: oriented to person, patient oriented x3 and No confusion Extre
[2022-05-18 19:39] LABS: Creatine Kinase 2077 U/L (55-170); Troponin I 0.093 ng/mL (0.000-0.034)
[2022-05-18] MEDS: hydrALAZINE HCL 25 MG TABLET PO (21:20)
[2022-05-18] MEDS: BUMETANIDE INJ 2.5 MG/10 ML VIAL 2 MG IV PUSH (23:24)
[2022-05-19] VITALS (30 sets, daily range): BP systolic 125–176; BP diastolic 71–110; PULSE 71–117; RESP 10–18; TEMP 36–36.6; O2SAT 97–100
[2022-05-19 04:47] LABS: Hematocrit 24.4 % (42.0-52.0); Hemoglobin 7.8 g/dL (14.0-18.0); Mean Corpuscular Hemoglobin 28.9 pg (26-34); Mean Corpuscular Volume 90.4 fl (80-100); Mean Platelet Volume 10.7 fl (7.4-10.4); Platelet Count Result 186 k/mm3 (150-375); Red Cell Distribution Width 14.3 % (11.5-14.5); White Blood Count 5.7 K/mm3 (4.5-10.0)
[2022-05-19 05:01] LABS: Alanine Aminotransferase 26 U/L (6-50); Albumin Level 3.1 g/dL (3.5-5.1); Alkaline Phosphatase 71 U/L (38-126); Anion Gap 13 mmol/L (8-16); Aspartate Amino Transferase 24 U/L (17-59); Bilirubin,Total 0.3 mg/dL (0.2-1.3); Calcium 5.7 mg/dL (8.4-10.2); Carbon Dioxide 15 mmol/L (22-30); Chloride 110 mmol/L (98-107); Estimated CRCL calculation 4 ml/min; Estimated Glomerular Filt Rate 3; Glucose 89 mg/dL (65-110); Magnesium 1.7 mg/dL (1.6-2.3); Phosphorus 7.6 mg/dL (2.5-4.5); Sodium 138 mmol/L (137-145)
[2022-05-19 05:04] LABS: Blood Urea Nitrogen 135 mg/dL (9-20)
[2022-05-19 05:06] LABS: Iron 58 ug/dL (49-181)
[2022-05-19 05:15] LABS: Percent Iron Saturation 26 % (20-50)
[2022-05-19 05:51] LABS: Hepatitis B Surface Antigen Negative (Negative)
[2022-05-19 06:08] LABS: Hepatitis B Surface Anti Res Negative
[2022-05-19] MEDS: BUMETANIDE INJ 2.5 MG/10 ML VIAL 2 MG IV PUSH (08:36)
[2022-05-19] MEDS: hydrALAZINE HCL 25 MG TABLET PO ×2 (08:37→16:27)
[2022-05-19] MEDS: METOPROLOL TARTRATE 25 MG TABLET PO ×2 (08:37→22:10)
[2022-05-19] MEDS: SODIUM BICARBONATE TAB 650 MG TABLET PO ×2 (08:37→16:27)
[2022-05-19] MEDS: ISOSORBIDE MONONITRATE 30 MG TAB.ER.24H PO (08:37)
[2022-05-19] MEDS: CALCIUM ACETATE 667 MG TABLET PO ×2 (08:37→16:28)
--- NOTE | 2022-05-19 10:47 | WPDHPUPDATE1 ---
History and Physical Update Update Date/Time: 05/19/22 10:47 History and Physical has been reviewed, including an updated exam of the patient. There are NO changes in the patient's condition. Risks, benefits, and alternatives have been discussed and questions answered. Patient agrees to proceed with procedure.
[2022-05-19] MEDS: SODIUM CHLORIDE 0.9% IV 500 ML 30 ML IV CONT (10:50)
[2022-05-19] MEDS: ceFAZolin 2 GM/D5W 50 ML 2 GM/50 ML BAG IVPB (11:46)
[2022-05-19] MEDS: LIDOCAINE HCL 1% PF 30 ML VIAL 19 ML INFILTRATE (12:39)
[2022-05-19] MEDS: HEPARIN SODIUM, PORCINE 10,000 UNITS/10 ML VIAL 6000 UNITS IRRIGATION (12:56)
[2022-05-19] MEDS: HEPARIN SODIUM 5,000 UNITS/ML VIAL 5000 UNITS IRRIGATION (12:58)
--- NOTE | 2022-05-19 12:59 | P.OP_ITS ---
Procedure Note - Detailed Date of Procedure 05/19/22 Pre-op Diagnosis polycystic kidney disease, acute renal failure, inadequate venous access Post-op Diagnosis Same Procedure Performed Placement of tunneled dura flow central venous catheter with ultrasound guidance under fluoroscopy Surgeon Yoni Carter MD [facility] Specialist Estela CARPIO Anesthesia MAC and Local (Lidocaine) Indications Patient presented with severe uremia and creatinine in the 20s. He has been found to have polycystic kidney disease and hypertension with anemia from chronic kidney disease. I was asked to place a tunneled central venous catheter for dialysis. Patient is taken to surgery for that purpose. Findings Tip of the catheter was in the distal SVC, right atrium Description of Procedure Patient was taken to surgery and anesthesia was introduced. The right neck and right upper chest were prepped and draped. Using ultrasound guidance, the distal internal jugular vein was visualized. Local anesthetic was introduced. A single puncture was used to cannulate the internal jugular vein. Guidewire passed readily. We checked the position with C-arm fluoroscopy and the tip of the guidewire was in the inferior vena cava. I then measured the appropriate positioning of the dura flow catheter. Some counter incisions were marked on the right chest. Local was infiltrated in these areas as well as the exit site of the catheter in the lower right neck. Incisions were made at each of these sites. I then tunneled the dura flow catheter retrograde through each of the incisions and eventually out the incision where the guidewire was protruding. Under fluoroscopy, serial dilators were passed over the guidewire. The large dilator with the sheath was then passed over the guidewire and into the superior vena cava. The guidewire and introducer were removed. The dura flow catheter tip was passed into the sheath and on into the superior vena cava. The sheath was then removed. The dura flow catheter was position so that there were no kinks at the entrance to the internal jugular vein. I used C-arm fluoroscopy to assess the position and course of the dura flow catheter. All looked good. Bot h ports aspirated blood and flushed easily with heparin. Final flush was placed in each port and each port was capped. I then closed each of the counter incisions with subcuticular interrupted 4-0 Vicryl suture. A hemostatic ring was placed over the exit site of the dura flow catheter. The catheter was then sutured to the skin with 3-0 nylon. Xeroform gauze was placed over each of the counter incisions. The exit site was dressed with a transparent dressing. The patient tolerated the procedure well. He transferred to recovery in good condition. Counts were correct x2. Implants 36 cm dura flow central venous catheter Estimated Blood Loss -5 Urine Output 400 Drains No Packing No Pathology None sent Complications No immediate complications Condition Stable Disposition PACU [facility] Billing Surgery - Charge Forward: Surgery Billing (Placement tunneled central venous catheter with ultrasound guidance, under fluoroscopy)
--- NOTE | 2022-05-19 14:40 | P.PNNP_ITS ---
Progress Note: A&P Assessment and Plan (1) End stage renal disease: Code(s): N18.6 - End stage renal disease Status: Chronic Assessment and Plan: * presumably due to unknown/undiagnosed polycystic kidney disease * suspect issues with HTN, pulmonary edema, and anemia all related to this * s/p HD catheter placement * HD today and likely again tomorrow * will need outpatient dialysis on discharge (2) Adult polycystic kidney disease: Code(s): Q61.2 - Polycystic kidney, adult type Status: Acute Assessment and Plan: * unclear if autosomal dominant or another varient * he does report a brother on dialysis but he is not clear on specifics * clear evidence noted by renal ultrasound and CT scan * may require further intervention (debulking versus embolization versus other) in the future (3) Acute diastolic CHF (congestive heart failure): Code(s): I50.31 - Acute diastolic (congestive) heart failure Status: Acute Assessment and Plan: * will continue oral diuretics since has some residual kidney function * fluid removal with dialysis as tolerated * follow respiratory status (4) Acute respiratory failure: Code(s): J96.00 - Acute respiratory failure, unspecified whether with hypoxia or hypercapnia Status: Acute Assessment and Plan: * due to pulmonary edema * CTA of chest negative for PE (surprised contrast study done given renal dysfunction) * BIPAP therapy as needed * continue diuresis/fluid removal with HD (5) Anemia of chronic disease: Code(s): D63.8 - Anemia in other chronic diseases classified elsewhere Status: Acute Assessment and Plan: * most likely secondary to ESRD * dose with Epogen todday and continue with HD * IV iron with HD as well * follow trend of H/H * if possible, try to avoid PRBC transfusion as he is a possible candidate for renal transplantation (6) Hypertensive urgency: Code(s): I16.0 - Hypertensive urgency Status: Acute Assessment and Plan: * BP doing better with current medications * may improve further with dialysis initiation Will continue to follow. Subjective Date/time seen: 05/19/22 14:40 Tolerating hemodialysis treatment at the time of my visit (seen on HD at ~ 2:30PM); tolerated HD catheter placement earlier today but some appropriated soreness at HD catheter placement; breathing seems stable if not better; no apparent distress noted. Exam Narrative: General: WD/WN AA male in NAD Heart: normal S1 and S2; no rub Lungs: decreased at bases Abdomen: soft, nontender, nondistended, positive bowel sounds Extremities: no cyanosis or clubbing; 1+ edema Skin: warm and intact Objective Data Vital Signs Vital Signs: Vital Signs Temp Pulse Resp BP Pulse Ox O2 Del Method O2 Flow Rate 05/19/22 14:35 87 153/84 H 05/19/22 14:15 81 152/89 H 05/19/22 13:55 78 150/94 H 05/19/22 13:25 97.8 F 71 14 157/91 H 05/19/22 13:38 78 154/88 H 05/19/22 13:24 81 12 134/89 97 Room Air 05/19/22 13:10 80 10 L 132/82 100 Simple Face Mask 6 05/19/22 12:55 97.2 F L 83 12 125/84 100 Simple Face Mask 6 05/19/22 10:00 73 05/19/22 08:00 83 05/19/22 11:00 97.9 F 80 18 146/91 H 100 Room Air 05/19/22 08:00 97.6 F 85
--- NOTE | 2022-05-19 14:40 | PM.PNNEP ---
Progress Note: A&P Assessment and Plan (1) End stage renal disease: Code(s): N18.6 - End stage renal disease Status: Chronic Assessment and Plan: presumably due to unknown/undiagnosed polycystic kidney disease suspect issues with HTN, pulmonary edema, and anemia all related to this s/p HD catheter placement HD today and likely again tomorrow will need outpatient dialysis on discharge (2) Adult polycystic kidney disease: Code(s): Q61.2 - Polycystic kidney, adult type Status: Acute Assessment and Plan: unclear if autosomal dominant or another varient he does report a brother on dialysis but he is not clear on specifics clear evidence noted by renal ultrasound and CT scan may require further intervention (debulking versus embolization versus other) in the future (3) Acute diastolic CHF (congestive heart failure): Code(s): I50.31 - Acute diastolic (congestive) heart failure Status: Acute Assessment and Plan: will continue oral diuretics since has some residual kidney function fluid removal with dialysis as tolerated follow respiratory status (4) Acute respiratory failure: Code(s): J96.00 - Acute respiratory failure, unspecified whether with hypoxia or hypercapnia Status: Acute Assessment and Plan: due to pulmonary edema CTA of chest negative for PE (surprised contrast study done given renal dysfunction) BIPAP therapy as needed continue diuresis/fluid removal with HD (5) Anemia of chronic disease: Code(s): D63.8 - Anemia in other chronic diseases classified elsewhere Status: Acute Assessment and Plan: most likely secondary to ESRD dose with Epogen todday and continue with HD IV iron with HD as well follow trend of H/H if possible, try to avoid PRBC transfusion as he is a possible candidate for renal transplantation (6) Hypertensive urgency: Code(s): I16.0 - Hypertensive urgency Status: Acute Assessment and Plan: BP doing better with current medications may improve further with dialysis initiation Will continue to follow. Subjective Date/time seen: 05/19/22 14:40 Tolerating hemodialysis treatment at the time of my visit (seen on HD at ~ 2:30PM); tolerated HD catheter placement earlier today but some appropriated soreness at HD catheter placement; breathing seems stable if not better; no apparent distress noted. Exam Narrative: General: WD/WN AA male in NAD Heart: normal S1 and S2; no rub Lungs: decreased at bases Abdomen: soft, nontender, nondistended, positive bowel sounds Extremities: no cyanosis or clubbing; 1+ edema Skin: warm and intact Objective Data Vital Signs Vital Signs: Vital Signs Temp Pulse Resp BP Pulse Ox O2 Del Method O2 Flow Rate 05/19/22 14:35 87 153/84 H 05/19/22 14:15 81 152/89 H 05/19/22 13:55 78 150/94 H 05/19/22 13:25 97.8 F 71 14 157/91 H 05/19/22 13:38 78 154/88 H 05/19/22 13:24 81 12 134/89 97 Room Air 05/19/22 13:10 80 10 L 132/82 100 Simple Face Mask 6 05/19/22 12:55 97.2 F L 83 12 125/84 100 Simple Face Mask 6 05/19/22 10:00 73 05/19/22 08:00 83 05/19/22 11:00 97.9 F 80 18 146/91 H 100 Room Air 05/19/22 08:00 97.6 F 85 18 174/106 H 100 05/19/22 08:37 85 05/19/22 08:23 98 Nasal Cannula 1 05/19/22 07:59 100 Nasal Cannula 1 05/19/22 06:00 82 05/19/22 04:00 97.7 F 85 16 166/102 H 100 05/19/22 04:00 86 18 100 Nasal Cannula 1 05/19/22 04:00 86 05/19/22 02:00 85 05/19/22 00:43 97.8 F 83 18 176/110 H 100 05/19/22 00:00 81 16 100 Nasal Cannula 1 05/19/22 00:00 81 05/18/22 22:00 86 05/18/22 20:00 90 16 100 Nasal Cannula 1 05/18/22 20:00 90 05/18/22 21:20 76 05/18/22 20:00 97.0 F L 87 16 137/79 100 05/18/22 18:0
[2022-05-19] MEDS: EPOETIN ALFA-EPBX 10,000 UNITS/ML VIAL 10000 UNITS IV PUSH (14:48)
[2022-05-19] MEDS: SODIUM CHLORIDE 0.9% IV 1,000 ML 999 ML IV CONT (14:48)
[2022-05-19] MEDS: ONDANSETRON INJ 4 MG/2 ML VIAL IV PUSH (14:53)
[2022-05-19] MEDS: HYDROcodone/acetaminophen (*CRX) 5-325 MG TABLET 1 TAB PO (16:26)
[2022-05-19] MEDS: HEPARIN SODIUM 5,000 UNITS/ML VIAL 5000 UNITS SUB-Q ×2 (16:27→22:10)
[2022-05-19] MEDS: ASPIRIN 81 MG ENTERIC TABLET PO (16:27)
[2022-05-19 16:35] LABS: Iron 52 ug/dL (49-181)
[2022-05-19 16:45] LABS: Percent Iron Saturation 21 % (20-50)
--- NOTE | 2022-05-19 22:42 | PM.IMPN ---
Progress Note: A&P Assessment and Plan (1) Acute respiratory failure: Code(s): J96.00 - Acute respiratory failure, unspecified whether with hypoxia or hypercapnia Status: Acute Assessment and Plan: patient presents to emergency room complaints of shortness of breath. He was noted having increased respiratory rate. His condition did worsen requiring BiPAP therapy. ABG 7.35/28/230 on BiPAP. CTA chest negative for PE but does show moderate pulmonary edema. Remained stable overnight was able to wean to nasal cannula today. Clay the respiratory failure related to pulmonary edema. Wean oxygen as tolerated. Currently patient is breathing comfortably on room air and does not require any oxygen supplementation at the time of my examination. Portable chest x-ray performed today to verify line placement confirm clear lungs without focal consolidation or pleural effusion. (2) Hypertensive urgency: Code(s): I16.0 - Hypertensive urgency Status: Acute Assessment and Plan: blood pressure was 194/128 on admission. This is certainly related to his renal failure and polycystic kidney disease. Nitropaste was started. Norvasc and Lopressor added. Blood pressure has improved but not at goal. blood pressure is expected to improve with successive renal replacement therapy sessions. Continue tuptitration of current medical regiment slowly to improve blood pressure. If he requires dialysis, this should improve his blood pressure is well. Antihypertensive medications p.r.n. are available. (3) Heart failure: Code(s): I50.9 - Heart failure, unspecified Status: Acute Assessment and Plan: Chest x-ray showing pulmonary edema on admission; confirmed by CTA chest. BNP 13K. Echo shows mild LV enlargement with severe eccentric hypertrophy and moderate global hypokinesis. Bumex given x 1. EF is 40-45% with myocardium showing an unusual echodense texture. He has mild valvular disease, mild pulmonary hypertension and severe grade 3 diastolic dysfunction. Clay patient has Acute systolic and diastolic CHF. Clay related to uncontrolled HTN and renal failure. patient started on hemodialysis. Patient was examined during hemodialysis; procedure was tolerated well without incident. (4) Elevated troponin: Code(s): R77.8 - Other specified abnormalities of plasma proteins Status: Acute Assessment and Plan: Trop 0.125 on admission. Echo as mentioned above but no wall motion abnormalities. EKG reviewed showing NSR, LVH, LAE and inverted T waves in the high lateral leads (no old EKG to compare). Clay related to CHF and/or poor renal clearance and/or from elevated TCK. Continue metoprolol, ASA. Lipid profile noted. Repeat troponin. Cardiology following. Probably will need ischemic evaluation at some point. (5) Acute kidney failure: Code(s): N17.9 - Acute kidney failure, unspecified Status: Acute Assessment and Plan: BUN 131, Cr 21.5 on admission. CTA chest showing PCKD. Clay the renal failure more chronic and unrecognized related to PCKD. UOP of 300mL overnight. Potassium okay but has metabolic nongap acidosis and fluid overload. Nephrology consulted. Labs not much better. Discussed with Nephrology ; currently patient is started on hemodialysis. Patient likely to require renal replacement therapy for the remaining of his life. Patient was counseled regarding the need for dialysis and possible referral to for evaluation for renal transplant after medical stabilization. (6) Adult polycystic kidney disease: Code(s): Q61.2 - Polycystic kidney, adult type Status: Acute Assessment and Plan: No family history of polycystic kidney disease. Patient will be resumed for for evaluation for a kidney transplant. (7) Anemia of chronic disease: Code(s): D63.8 - Anemia in other chronic diseases classified elsewhere Status: Acute Assessment and
[2022-05-20] VITALS (24 sets, daily range): BP systolic 144–187; BP diastolic 84–112; PULSE 88–110; RESP 16–20; TEMP 36–36.9; O2SAT 97–100
[2022-05-20] MEDS: HYDROcodone/acetaminophen (*CRX) 5-325 MG TABLET 1 TAB PO (03:09)
[2022-05-20] MEDS: HEPARIN SODIUM 5,000 UNITS/ML VIAL 5000 UNITS SUB-Q ×3 (06:41→21:05)
[2022-05-20] MEDS: SODIUM BICARBONATE TAB 650 MG TABLET PO (09:07)
[2022-05-20] MEDS: METOPROLOL TARTRATE 25 MG TABLET PO (09:07)
[2022-05-20] MEDS: ISOSORBIDE MONONITRATE 30 MG TAB.ER.24H PO (09:07)
[2022-05-20] MEDS: hydrALAZINE HCL 25 MG TABLET PO ×2 (09:07→14:35)
[2022-05-20] MEDS: CALCIUM ACETATE 667 MG TABLET PO ×2 (09:07→14:35)
[2022-05-20 10:25] LABS: Anti Streptolysin O Screen 54 IU/mL (<200)
[2022-05-20] MEDS: ASPIRIN 81 MG ENTERIC TABLET PO (10:46)
--- NOTE | 2022-05-20 11:10 | PM.IMPN ---
Progress Note: A&P Assessment and Plan (1) Acute respiratory failure: Code(s): J96.00 - Acute respiratory failure, unspecified whether with hypoxia or hypercapnia Status: Acute Assessment and Plan: On admission, patient presents to emergency room complaints of shortness of breath. He was noted having increased respiratory rate. His condition did worsen requiring BiPAP therapy. ABG 7.35/28/230 on BiPAP. CTA chest negative for PE but does show moderate pulmonary edema. Remained stable overnight was able to wean to nasal cannula today. Whitman the respiratory failure related to pulmonary edema. Wean oxygen as tolerated. Currently patient is breathing comfortably on room air and does not require any oxygen supplementation at the time of my examination. Portable chest x-ray performed today to verify line placement confirm clear lungs without focal consolidation or pleural effusion. Plan for hemodialysis today. Patient is comfortable, without complaints. Patient is concerned about renal diet and a consult has been placed. (2) Hypertensive urgency: Code(s): I16.0 - Hypertensive urgency Status: Acute Assessment and Plan: Currently resolved and was felt to be related to volume overload. Blood pressure was 194/128 on admission. This is certainly related to his renal failure and polycystic kidney disease. Nitropaste was started. Norvasc and Lopressor added. Blood pressure has improved but not at goal. blood pressure is expected to improve with successive renal replacement therapy sessions. Continue uptitration of current medical regiment slowly to improve blood pressure. If he requires dialysis, this should improve his blood pressure is well. Antihypertensive medications p.r.n. are available. BP 156/86 today. (3) Heart failure: Code(s): I50.9 - Heart failure, unspecified Status: Acute Assessment and Plan: Chest x-ray showing pulmonary edema on admission; confirmed by CTA chest. BNP 13K. Echo shows mild LV enlargement with severe eccentric hypertrophy and moderate global hypokinesis. Bumex given x 1. EF is 40-45% with myocardium showing an unusual echodense texture. He has mild valvular disease, mild pulmonary hypertension and severe grade 3 diastolic dysfunction. Whitman patient has Acute systolic and diastolic CHF. Whitman related to uncontrolled HTN and renal failure. patient started on hemodialysis. Patient was examined during hemodialysis; procedure was tolerated well without incident. repeat chest Xray demonstrates resolution of pulmonary edema. Per cardiology, we will cont hydralazine + nitrates. We will increase metoprolol to 50 mg BID. Patient was counseled patient about heart failure, cardiomyopathy, hypertension (4) Elevated troponin: Code(s): R77.8 - Other specified abnormalities of plasma proteins Status: Acute Assessment and Plan: Trop 0.125 on admission. Echo as mentioned above but no wall motion abnormalities. EKG reviewed showing NSR, LVH, LAE and inverted T waves in the high lateral leads (no old EKG to compare). Whitman related to CHF and/or poor renal clearance and/or from elevated TCK. Continue metoprolol, ASA. Lipid profile noted. Repeat troponin. Cardiology following. Probably will need ischemic evaluation at some point. (5) Acute kidney failure: Code(s): N17.9 - Acute kidney failure, unspecified Status: Acute Assessment and Plan: BUN 131, Cr 21.5 on admission. CTA chest showing PCKD. Whitman the renal failure more chronic and unrecognized related to PCKD. UOP of 300mL overnight. Potassium okay but has metabolic nongap acidosis and fluid overload. Nephrology consulted. Labs not much better. Discussed with Nephrology ; currently patient is started on hemodialysis. Patient likely to require renal replacement therapy for the remaining of his life. Patient was counseled regarding the need for dialysis and possible referral to for evaluatio
[2022-05-20 12:10] LABS: Basophils Percent Auto 0.5 % (0.2-1.2); Eosinophils Absolute Auto 0.2 K/mm3 (0-0.3); Eosinophils Percent Auto 2.8 % (0-4.4); Hematocrit 24.3 % (42.0-52.0); Hemoglobin 7.8 g/dL (14.0-18.0); Immature Granulocyte Absolute 0.03 K/mm3 (0.00-0.031); Immature Granulocyte Percent A 0.5 % (0-0.5); Lymphocytes Absolute Auto 1.06 K/mm3 (0.9-3.2); Lymphocytes Percent Auto 17.6 % (18.3-44.2); Mean Corpuscular HGB Conc 32.1 g/dl (32-36); Mean Corpuscular Hemoglobin 29.3 pg (26-34); Mean Corpuscular Volume 91.4 fl (80-100); Mean Platelet Volume 10.6 fl (7.4-10.4); Monocytes Absolute Auto 0.7 K/mm3 (0.1-0.6); Monocytes Percent Auto 11.9 % (2.6-8.5); Neutrophils Percent Auto 66.7 % (45.5-73.1); Platelet Count Result 188 k/mm3 (150-375); Red Blood Count 2.66 M/mm3 (4.6-6.20); Red Cell Distribution Width 14.2 % (11.5-14.5)
[2022-05-20 12:33] LABS: Anion Gap 10 mmol/L (8-16); Blood Urea Nitrogen 111 mg/dL (9-20); Calcium 5.9 mg/dL (8.4-10.2); Carbon Dioxide 21 mmol/L (22-30); Chloride 107 mmol/L (98-107); Estimated CRCL calculation 5 ml/min; Estimated Glomerular Filt Rate 3; Glucose 108 mg/dL (65-110); Phosphorus 6.8 mg/dL (2.5-4.5); Potassium 4.9 mmol/L (3.4-5.0); Sodium 138 mmol/L (137-145)
[2022-05-20 12:41] LABS: Basophils Percent Auto 0.4 % (0.2-1.2); Eosinophils Absolute Auto 0.2 K/mm3 (0-0.3); Eosinophils Percent Auto 3.7 % (0-4.4); Immature Granulocyte Absolute 0.02 K/mm3 (0.00-0.031); Immature Granulocyte Percent A 0.4 % (0-0.5); Lymphocytes Absolute Auto 1.23 K/mm3 (0.9-3.2); Lymphocytes Percent Auto 21.7 % (18.3-44.2); Monocytes Absolute Auto 0.5 K/mm3 (0.1-0.6); Monocytes Percent Auto 9.2 % (2.6-8.5); Neutrophils Absolute Auto 3.7 K/mm3 (1.3-6.7); Neutrophils Percent Auto 64.6 % (45.5-73.1)
[2022-05-20 14:02] LABS: SM Antibody <1.0; SM/RNP Antibody <1.0
[2022-05-20 14:03] LABS: Iron 27 ug/dL (49-181)
[2022-05-20 14:14] LABS: Percent Iron Saturation 12 % (20-50)
--- NOTE | 2022-05-20 14:40 | P.PNCA_ITS ---
Progress Note: A&P Assessment and Plan (1) Acute systolic heart failure: Code(s): I50.21 - Acute systolic (congestive) heart failure Status: Acute Assessment and Plan: Improving w/ control of HTN and dialysis. * Cont hydralazine + nitrates * Increase metoprolol to 50 mg BID * Counseled patient about heart failure, cardiomyopathy, hypertension (2) Cardiomyopathy: Code(s): I42.9 - Cardiomyopathy, unspecified Status: Acute Assessment and Plan: EF 40-45%. * Probably hypertensive cardiomyopathy * consider MRI as an outpatient * guideline directed medical therapy. * Continue beta-fernando, hydralazine and nitrates. * Entresto or an ARB, spironolactone at some point if OK w/ Dr. Holcomb. * Unable to use Farxiga due to ESRD (3) Hypertensive urgency: Code(s): I16.0 - Hypertensive urgency Status: Acute Assessment and Plan: Hypertensive urgency * improved (4) Elevated troponin: Code(s): R77.8 - Other specified abnormalities of plasma proteins Status: Acute Assessment and Plan: Mildly elevated troponin * Had some chest tightness, but I suspect troponins elevation is due to HTN and CHF * EKG w/ lateral ischemia vs LVH * eventual ischemic evaluation, probably a Lexiscan, Sunday if still here, otherwise can be done as an OPT (5) Acute kidney failure: Code(s): N17.9 - Acute kidney failure, unspecified Status: Acute Assessment and Plan: ARF; found to have polycystic kidneys by CT * Also noted to have a ESR of >140 * Dr. Holcomb consulted * getting dialysis * Pt advised that his daughter should be screened and other first degree relatives be screened for polycystic KD. (6) Anemia of chronic disease: Code(s): D63.8 - Anemia in other chronic diseases classified elsewhere Status: Acute Assessment and Plan: NCNC anemia * Likely due to CKD * Being evaluated by the hospitalists for other causes (7) Elevated CPK: Code(s): R74.8 - Abnormal levels of other serum enzymes Status: Acute Assessment and Plan: CPK of 2400 noted. Rhabdomyolysis? Cause? * (8) Goiter: Code(s): E04.9 - Nontoxic goiter, unspecified Status: Acute Assessment and Plan: Noted, being eval by hospitalists. Subjective Date/time seen: Follow-up for new onset of acute systolic CHF, hypertensive urgency, cardiomyopathy EF 40-45%. 05/18/22? 16:10 patient started on amlodipine and metoprolol as well as some p.r.n. antihypertensives. ? feeling much better at, though still on O2.Getting hemodialysis catheter placed tomorrow.? Blood pressure has been running 132-167/88-106 mmHg Echo as below. 05/20/22 14:40: Feeling much better, breathing is better, tolerated dialysis. No problems with medications. Would like to get up and move around more but the nurses are keeping in bed for the most part. Blood pressure generally running 140-160 systolic. Review of Systems Review of Systems: No chest pain, shortness of breath, swelling, dizziness. Does complain of constipation. Exam Const: General: cooperative, healthy appearing and comfortable; No confusion Orientation/consciousness: oriented to person, patient oriented x3 and No confusion HENMT: Face/Nose/Sinus: Normal nares present Mouth: Yes moist mucous membranes Eyes: Sclera:
--- NOTE | 2022-05-20 14:40 | PM.PNCARD ---
Progress Note: A&P Assessment and Plan (1) Acute systolic heart failure: Code(s): I50.21 - Acute systolic (congestive) heart failure Status: Acute Assessment and Plan: Improving w/ control of HTN and dialysis. Cont hydralazine + nitrates Increase metoprolol to 50 mg BID Counseled patient about heart failure, cardiomyopathy, hypertension (2) Cardiomyopathy: Code(s): I42.9 - Cardiomyopathy, unspecified Status: Acute Assessment and Plan: EF 40-45%. Probably hypertensive cardiomyopathy consider MRI as an outpatient guideline directed medical therapy. Continue beta-fernando, hydralazine and nitrates. Entresto or an ARB, spironolactone at some point if OK w/ Dr. Holcomb. Unable to use Farxiga due to ESRD (3) Hypertensive urgency: Code(s): I16.0 - Hypertensive urgency Status: Acute Assessment and Plan: Hypertensive urgency improved (4) Elevated troponin: Code(s): R77.8 - Other specified abnormalities of plasma proteins Status: Acute Assessment and Plan: Mildly elevated troponin Had some chest tightness, but I suspect troponins elevation is due to HTN and CHF EKG w/ lateral ischemia vs LVH eventual ischemic evaluation, probably a Lexiscan, Sunday if still here, otherwise can be done as an OPT (5) Acute kidney failure: Code(s): N17.9 - Acute kidney failure, unspecified Status: Acute Assessment and Plan: ARF; found to have polycystic kidneys by CT Also noted to have a ESR of >140 Dr. Holcomb consulted getting dialysis Pt advised that his daughter should be screened and other first degree relatives be screened for polycystic KD. (6) Anemia of chronic disease: Code(s): D63.8 - Anemia in other chronic diseases classified elsewhere Status: Acute Assessment and Plan: NCNC anemia Likely due to CKD Being evaluated by the hospitalists for other causes (7) Elevated CPK: Code(s): R74.8 - Abnormal levels of other serum enzymes Status: Acute Assessment and Plan: CPK of 2400 noted. Rhabdomyolysis? Cause? (8) Goiter: Code(s): E04.9 - Nontoxic goiter, unspecified Status: Acute Assessment and Plan: Noted, being eval by hospitalists. Subjective Date/time seen: Follow-up for new onset of acute systolic CHF, hypertensive urgency, cardiomyopathy EF 40-45%. 05/18/22? 16:10 patient started on amlodipine and metoprolol as well as some p.r.n. antihypertensives. ? feeling much better at, though still on O2.Getting hemodialysis catheter placed tomorrow.? Blood pressure has been running 132-167/88-106 mmHg Echo as below. 05/20/22 14:40: Feeling much better, breathing is better, tolerated dialysis. No problems with medications. Would like to get up and move around more but the nurses are keeping in bed for the most part. Blood pressure generally running 140-160 systolic. Review of Systems Review of Systems: No chest pain, shortness of breath, swelling, dizziness. Does complain of constipation. Exam Const: General: cooperative, healthy appearing and comfortable; No confusion Orientation/consciousness: oriented to person, patient oriented x3 and No confusion HENMT: Face/Nose/Sinus: Normal nares present Mouth: Yes moist mucous membranes Eyes: Sclera: sclerae normal EOM: EOMs intact bilaterally Neck: Neck: supple and No no JVD Thyroid: abnormal thyroid (Goiter) Resp: Effort & Inspection: normal respiratory effort Auscultation: clear to auscultation bilaterally Cardio: Rate: regular rate Rhythm: regular rhythm Heart sounds: Murmur heart sound present Other: 2/6 soft JOHN LLSB, RSB, apex, 1/6 diast murmur RSP and apex GI: Inspection: abnormal to inspection and distended Skin: General skin exam: normal color and no rashes or lesions noted Neuro: General: oriented to person, patient oriented x3 and No confusion Extrem:
--- NOTE | 2022-05-20 17:35 | PM.PNNEP ---
Progress Note: A&P Assessment and Plan (1) End stage renal disease: Code(s): N18.6 - End stage renal disease Status: Chronic Assessment and Plan: presumably due to unknown/undiagnosed polycystic kidney disease suspect issues with HTN, pulmonary edema, and anemia all related to this s/p HD catheter placement (on 05/19/22) HD today will need outpatient dialysis on discharge (2) Adult polycystic kidney disease: Code(s): Q61.2 - Polycystic kidney, adult type Status: Acute Assessment and Plan: unclear if autosomal dominant or another varient he does report a brother on dialysis but he is not clear on specifics clear evidence noted by renal ultrasound and CT scan may require further intervention (debulking versus embolization versus other) in the future (3) Acute diastolic CHF (congestive heart failure): Code(s): I50.31 - Acute diastolic (congestive) heart failure Status: Acute Assessment and Plan: will continue oral diuretics since has some residual kidney function fluid removal with dialysis as tolerated follow respiratory status (4) Acute respiratory failure: Code(s): J96.00 - Acute respiratory failure, unspecified whether with hypoxia or hypercapnia Status: Acute Assessment and Plan: due to pulmonary edema CTA of chest negative for PE (surprised contrast study done given renal dysfunction) BIPAP therapy as needed continue diuresis/fluid removal with HD (5) Anemia of chronic disease: Code(s): D63.8 - Anemia in other chronic diseases classified elsewhere Status: Acute Assessment and Plan: most likely secondary to ESRD dose with Epogen with HD IV iron with HD as well follow trend of H/H if possible, try to avoid PRBC transfusion as he is a possible candidate for renal transplantation (6) Hypertensive urgency: Code(s): I16.0 - Hypertensive urgency Status: Acute Assessment and Plan: BP doing better with current medications may improve further with dialysis initiation Will continue to follow. Subjective Date/time seen: 05/20/22 17:35 Tolerated dialysis treatment yesterday as well as currently (seen on HD at ~ 5:30PM); breathing and respiratory status continue to improve; BP appears to be doing better as well; no issues overnight or earlier this AM. Exam Narrative: General: WD/WN AA male in NAD Heart: normal S1 and S2; no rub Lungs: decreased at bases Abdomen: soft, nontender, nondistended, positive bowel sounds Extremities: no cyanosis or clubbing; 1+ edema Skin: no rash Objective Data Vital Signs Vital Signs: Vital Signs Temp Pulse Resp BP Pulse Ox O2 Del Method ?05/20/22 17:27 98.6 F 94 05/20/22 16:00 Room Air 05/20/22 14:00 93 05/20/22 12:00 97.6 F 88 16 156/86 H 100 05/20/22 12:00 Room Air 05/20/22 12:00 90 05/20/22 08:00 99 05/20/22 09:07 100 05/20/22 08:00 98.0 F 101 H 16 180/99 H 100 05/20/22 08:00 Room Air 05/20/22 06:00 107 H 05/20/22 04:00 100 Room Air 05/20/22 04:00 98 05/20/22 04:00 97.7 F 92 18 149/88 H 100 05/20/22 02:00 99 05/20/22 00:00 97 Room Air 05/20/22 00:00 92 05/20/22 00:00 97.9 F 91 16 146/93 H 97 05/19/22 22:00 104 H 05/19/22 20:00 98 Room Air 05/19/22 20:00 108 H 05/19/22 22:10 100 05/19/22 21:00 97.8 F 111 H 18 165/101 H 98 05/19/22 17:30 97.1 F L 117 H 18 147/90 H 97 Intake/Output Intake/Output: Intake & Output 05/17/22 05/18/22 05/19/22 05/20/22 23:59 23:59 23:59 23:59 Intake Total 960 1500 1320 Output Total 300 3350 750 Balance 660 -1850 570 Meds/Results Medications: Active Medications Generic Name Dose Route Start Last Admin Trade Name Freq PRN Reason Stop Dose Admin Acetaminophen 500 mg 05/19/22 13:26 Acetaminophen 500 Mg T
--- NOTE | 2022-05-20 17:35 | P.PNNP_ITS ---
Progress Note: A&P Assessment and Plan (1) End stage renal disease: Code(s): N18.6 - End stage renal disease Status: Chronic Assessment and Plan: * presumably due to unknown/undiagnosed polycystic kidney disease * suspect issues with HTN, pulmonary edema, and anemia all related to this * s/p HD catheter placement (on 05/19/22) * HD today * will need outpatient dialysis on discharge (2) Adult polycystic kidney disease: Code(s): Q61.2 - Polycystic kidney, adult type Status: Acute Assessment and Plan: * unclear if autosomal dominant or another varient * he does report a brother on dialysis but he is not clear on specifics * clear evidence noted by renal ultrasound and CT scan * may require further intervention (debulking versus embolization versus other) in the future (3) Acute diastolic CHF (congestive heart failure): Code(s): I50.31 - Acute diastolic (congestive) heart failure Status: Acute Assessment and Plan: * will continue oral diuretics since has some residual kidney function * fluid removal with dialysis as tolerated * follow respiratory status (4) Acute respiratory failure: Code(s): J96.00 - Acute respiratory failure, unspecified whether with hypoxia or hypercapnia Status: Acute Assessment and Plan: * due to pulmonary edema * CTA of chest negative for PE (surprised contrast study done given renal dysfunction) * BIPAP therapy as needed * continue diuresis/fluid removal with HD (5) Anemia of chronic disease: Code(s): D63.8 - Anemia in other chronic diseases classified elsewhere Status: Acute Assessment and Plan: * most likely secondary to ESRD * dose with Epogen with HD * IV iron with HD as well * follow trend of H/H * if possible, try to avoid PRBC transfusion as he is a possible candidate for renal transplantation (6) Hypertensive urgency: Code(s): I16.0 - Hypertensive urgency Status: Acute Assessment and Plan: * BP doing better with current medications * may improve further with dialysis initiation Will continue to follow. Subjective Date/time seen: 05/20/22 17:35 Tolerated dialysis treatment yesterday as well as currently (seen on HD at ~ 5:30PM); breathing and respiratory status continue to improve; BP appears to be doing better as well; no issues overnight or earlier this AM. Exam Narrative: General: WD/WN AA male in NAD Heart: normal S1 and S2; no rub Lungs: decreased at bases Abdomen: soft, nontender, nondistended, positive bowel sounds Extremities: no cyanosis or clubbing; 1+ edema Skin: no rash Objective Data Vital Signs Vital Signs: Vital Signs Temp Pulse Resp BP Pulse Ox O2 Del Method ?05/20/22 17:27 98.6 F 94 05/20/22 16:00 Room Air 05/20/22 14:00 93 05/20/22 12:00 97.6 F 88 16 156/86 H 100 05/20/22 12:00 Room Air 05/20/22 12:00 90 05/20/22 08:00 99 05/20/22 09:07 100 05/20/22 08:00 98.0 F 101 H 16 180/99 H 100 05/20/22 08:00 Room Air 05/20/22 06:00 107 H 05/20/22 04:00 100 Room Air 05/20/22 04:00 98 05/20/22 04:00 97.7 F 92 18 149/88 H 100 05/20/22 02:00 99 05/20/22 00:00 97 Room Air 05/20/22 00
--- NOTE | 2022-05-20 21:03 | PC.NURSE ---
Returned from dialysis, tolerated procedure well. 1.5 liters fluid removed.
[2022-05-20] MEDS: DOCUSATE SODIUM 100 MG CAPSULE PO (21:05)
[2022-05-20] MEDS: hydrALAZINE HCL 20 MG/ML VIAL 10 MG IV PUSH (21:05)
[2022-05-20] MEDS: METOPROLOL TARTRATE 50 MG TAB PO (21:05)
[2022-05-21] VITALS (17 sets, daily range): BP systolic 145–166; BP diastolic 87–95; PULSE 78–102; RESP 17–24; TEMP 36–37; O2SAT 94–100
[2022-05-21 04:45] LABS: Hematocrit 22.6 % (42.0-52.0); Hemoglobin 7.3 g/dL (14.0-18.0); Mean Corpuscular HGB Conc 32.3 g/dl (32-36); Mean Corpuscular Hemoglobin 29.1 pg (26-34); Platelet Count Result 171 k/mm3 (150-375); Red Blood Count 2.51 M/mm3 (4.6-6.20); Red Cell Distribution Width 14.2 % (11.5-14.5); White Blood Count 6.6 K/mm3 (4.5-10.0)
[2022-05-21 05:03] LABS: Anion Gap 6 mmol/L (8-16); Blood Urea Nitrogen 84 mg/dL (9-20); Carbon Dioxide 28 mmol/L (22-30); Chloride 105 mmol/L (98-107); Glucose 91 mg/dL (65-110); Potassium 4.4 mmol/L (3.4-5.0); Sodium 139 mmol/L (137-145)
[2022-05-21 05:09] LABS: Estimated CRCL calculation 6 ml/min; Estimated Glomerular Filt Rate 4
[2022-05-21] MEDS: HEPARIN SODIUM 5,000 UNITS/ML VIAL 5000 UNITS SUB-Q ×3 (05:24→21:11)
[2022-05-21 06:01] LABS: Albumin 2.8 g/dL (3.8-4.8); Alpha 1 Globulin 0.3 g/dL (0.2-0.3); Alpha 2 Globulin 0.7 g/dL (0.5-0.9); Beta 1 Globulin 0.3 g/dL (0.4-0.6); Gamma Globulin 1.1 g/dL (0.8-1.7); Protein, Total 5.6 g/dL (6.1-8.1)
[2022-05-21] MEDS: HYDROcodone/acetaminophen (*CRX) 5-325 MG TABLET 1 TAB PO ×2 (07:34→21:11)
[2022-05-21] MEDS: CALCIUM ACETATE 667 MG TABLET PO ×3 (07:44→17:14)
[2022-05-21] MEDS: BUMETANIDE 1 MG TABLET 2 MG PO (07:44)
[2022-05-21] MEDS: DOCUSATE SODIUM 100 MG CAPSULE PO ×2 (07:45→21:10)
[2022-05-21] MEDS: hydrALAZINE HCL 25 MG TABLET PO ×3 (07:45→17:14)
[2022-05-21] MEDS: ISOSORBIDE MONONITRATE 30 MG TAB.ER.24H PO (07:45)
[2022-05-21] MEDS: METOPROLOL TARTRATE 50 MG TAB PO ×2 (07:45→21:11)
[2022-05-21] MEDS: SODIUM BICARBONATE TAB 650 MG TABLET PO (07:46)
[2022-05-21] MEDS: ASPIRIN 81 MG ENTERIC TABLET PO (09:40)
[2022-05-21] MEDS: ONDANSETRON HCL ODT 4 MG TABLET PO (11:23)
--- NOTE | 2022-05-21 11:42 | PM.PNNEP ---
Progress Note: A&P Assessment and Plan (1) End stage renal disease: Code(s): N18.6 - End stage renal disease Status: Chronic Assessment and Plan: due to autosomal dominant polycystic kidney disease suspect issues with HTN, pulmonary edema, and anemia are all related to this phenomen s/p HD catheter placement (on 05/19/22) HD yesterday and plan HD tomorrow will need outpatient dialysis on discharge (2) Adult polycystic kidney disease: Code(s): Q61.2 - Polycystic kidney, adult type Status: Acute Assessment and Plan: seems clear by history provided by his sister that this is indeed autosomal dominant polycystic kidney disease he does report a brother on dialysis but he is not clear on specifics clear evidence noted by renal ultrasound and CT scan may require further intervention (debulking versus embolization versus other) in the future (3) Acute diastolic CHF (congestive heart failure): Code(s): I50.31 - Acute diastolic (congestive) heart failure Status: Acute Assessment and Plan: will continue oral diuretics since has some residual kidney function fluid removal with dialysis as tolerated follow respiratory status (4) Acute respiratory failure: Code(s): J96.00 - Acute respiratory failure, unspecified whether with hypoxia or hypercapnia Status: Acute Assessment and Plan: due to pulmonary edema CTA of chest negative for PE (surprised contrast study done given renal dysfunction) BIPAP therapy as needed continue diuresis/fluid removal with HD (5) Anemia of chronic disease: Code(s): D63.8 - Anemia in other chronic diseases classified elsewhere Status: Acute Assessment and Plan: most likely secondary to ESRD dose with Epogen with HD IV iron with HD as well follow trend of H/H if possible, try to avoid PRBC transfusion as he is a possible candidate for renal transplantation (6) Hypertensive urgency: Code(s): I16.0 - Hypertensive urgency Status: Acute Assessment and Plan: BP doing better with current medications may improve further with dialysis therapy would not be opposed to RONNIE-I or ARB therapy at this time Long and extensive discussion (> 20 minutes) with patient's sister at bedside regarding extensive family history of kidney disease as well as known issue or polycystic kidney disease in multiple family members. Will continue to follow. Subjective Date/time seen: 05/21/22 11:42 Tolerated hemodialysis treatment yesterday afternoon without any issues or problems; otherwise, no apparent distress voiced at this time; his sister is at bedside and provided more family history -- their father has polycystic kidney disease as well as her other brother (who had been on dialysis x 7 years); another sister has CKD from PCKD as well her daughter (patient's niece); his sister at bedside herself apparently does not have PCKD. Exam Narrative: General: WD/WN AA male in NAD Heart: normal S1 and S2; no rub Lungs: decreased at bases Abdomen: soft, nontender, nondistended, positive bowel sounds Extremities: no cyanosis or clubbing; trace edema Skin: no rash or nodules Objective Data Vital Signs Vital Signs: Vital Signs Temp Pulse Resp BP Pulse Ox O2 Del Method 05/21/22 10:00 83 05/21/22 08:00 91 05/21/22 08:00 97.2 F L 95 20 166/95 H 100 05/21/22 07:49 99 Room Air 05/21/22 07:45 99 05/21/22 06:00 98 05/21/22 04:00 99 Room Air 05/21/22 04:00 98 05/21/22 04:00 98.1 F 94 18 150/87 H 98 05/21/22 02:00 93 05/21/22 00:00 99 Room Air 05/21/22 00:00 91 05/21/22 00:00 97.6 F 102 H 18 166/92 H 99 05/20/22 22:00 108 H 05/20/22 20:00 99 Room Air 05/20/22 20:00 105 H 05/20/22 20:00 97.7 F 104 H 18 157/100 H 99 05/20/22 21:05 110 H 05/20/22 20:10 97.9 F 99 20
--- NOTE | 2022-05-21 11:42 | P.PNNP_ITS ---
Progress Note: A&P Assessment and Plan (1) End stage renal disease: Code(s): N18.6 - End stage renal disease Status: Chronic Assessment and Plan: * due to autosomal dominant polycystic kidney disease * suspect issues with HTN, pulmonary edema, and anemia are all related to this phenomen * s/p HD catheter placement (on 05/19/22) * HD yesterday and plan HD tomorrow * will need outpatient dialysis on discharge (2) Adult polycystic kidney disease: Code(s): Q61.2 - Polycystic kidney, adult type Status: Acute Assessment and Plan: * seems clear by history provided by his sister that this is indeed autosomal dominant polycystic kidney disease * he does report a brother on dialysis but he is not clear on specifics * clear evidence noted by renal ultrasound and CT scan * may require further intervention (debulking versus embolization versus other) in the future (3) Acute diastolic CHF (congestive heart failure): Code(s): I50.31 - Acute diastolic (congestive) heart failure Status: Acute Assessment and Plan: * will continue oral diuretics since has some residual kidney function * fluid removal with dialysis as tolerated * follow respiratory status (4) Acute respiratory failure: Code(s): J96.00 - Acute respiratory failure, unspecified whether with hypoxia or hypercapnia Status: Acute Assessment and Plan: * due to pulmonary edema * CTA of chest negative for PE (surprised contrast study done given renal dysfunction) * BIPAP therapy as needed * continue diuresis/fluid removal with HD (5) Anemia of chronic disease: Code(s): D63.8 - Anemia in other chronic diseases classified elsewhere Status: Acute Assessment and Plan: * most likely secondary to ESRD * dose with Epogen with HD * IV iron with HD as well * follow trend of H/H * if possible, try to avoid PRBC transfusion as he is a possible candidate for renal transplantation (6) Hypertensive urgency: Code(s): I16.0 - Hypertensive urgency Status: Acute Assessment and Plan: * BP doing better with current medications * may improve further with dialysis therapy * would not be opposed to RONNIE-I or ARB therapy at this time Long and extensive discussion (> 20 minutes) with patient's sister at bedside regarding extensive family history of kidney disease as well as known issue or polycystic kidney disease in multiple family members. Will continue to follow. Subjective Date/time seen: 05/21/22 11:42 Tolerated hemodialysis treatment yesterday afternoon without any issues or problems; otherwise, no apparent distress voiced at this time; his sister is at bedside and provided more family history -- their father has polycystic kidney disease as well as her other brother (who had been on dialysis x 7 years); another sister has CKD from PCKD as well her daughter (patient's niece); his sister at bedside herself apparently does not have PCKD. Exam Narrative: General: WD/WN AA male in NAD Heart: normal S1 and S2; no rub Lungs: decreased at bases Abdomen: soft, nontender, nondistended, positive bowel sounds Extremities: no cyanosis or clubbing; trace edema Skin: no rash or nodules Objective Data Vital Signs Vital Signs: Vital Signs Temp Pulse Resp BP Pulse Ox O2 Del Method 05/21/22 10:00 83 05/21/22 08:00 91
--- NOTE | 2022-05-21 11:59 | PM.IMPN ---
Progress Note: A&P Assessment and Plan (1) Acute respiratory failure: Code(s): J96.00 - Acute respiratory failure, unspecified whether with hypoxia or hypercapnia Status: Resolved Assessment and Plan: On admission, patient presents to emergency room complaints of shortness of breath. He was noted having increased respiratory rate. His condition did worsen requiring BiPAP therapy. ABG 7.35/28/230 on BiPAP. CTA chest negative for PE but does show moderate pulmonary edema. Remained stable overnight was able to wean to nasal cannula today. [place] the respiratory failure related to pulmonary edema. Wean oxygen as tolerated. Currently patient is breathing comfortably on room air and does not require any oxygen supplementation at the time of my examination. Portable chest x-ray performed today to verify line placement confirm clear lungs without focal consolidation or pleural effusion. Patient inspiratory status improved with IV Bumex and daily dialysis. He will not get dialysis today as it was a Sunday. Plan for hemodialysis tomorrow. Patient is comfortable, without complaints. Chest x-ray confirm lungs are free from acute opacities. No pleural effusions or pneumothorax. (2) Hypertensive urgency: Code(s): I16.0 - Hypertensive urgency Status: Acute Assessment and Plan: Currently resolved and was felt to be related to volume overload. Blood pressure was 194/128 on admission. This is certainly related to his renal failure and polycystic kidney disease. Nitropaste was started. Norvasc and Lopressor added. Blood pressure has improved but not at goal. blood pressure is expected to improve with successive renal replacement therapy sessions. Continue uptitration of current medical regiment slowly to improve blood pressure. If he requires dialysis, this should improve his blood pressure is well. Antihypertensive medications p.r.n. are available. BP 145/87 today. (3) Heart failure: Code(s): I50.9 - Heart failure, unspecified Status: Acute Assessment and Plan: Chest x-ray showing pulmonary edema on admission; confirmed by CTA chest. BNP 13K. Echo shows mild LV enlargement with severe eccentric hypertrophy and moderate global hypokinesis. Bumex given x 1. EF is 40-45% with myocardium showing an unusual echodense texture. He has mild valvular disease, mild pulmonary hypertension and severe grade 3 diastolic dysfunction. [place] patient has Acute systolic and diastolic CHF. [place] related to uncontrolled HTN and renal failure. patient started on hemodialysis. Patient was examined during hemodialysis; procedure was tolerated well without incident. repeat chest Xray demonstrates resolution of pulmonary edema. Per cardiology, we will cont hydralazine + nitrates. We will increase metoprolol to 50 mg BID. Patient was counseled patient about heart failure, cardiomyopathy, hypertension. Patient will certainly need Cardiology follow-up as an outpatient and repeat echocardiogram in 6-8 weeks. (4) Elevated troponin: Code(s): R77.8 - Other specified abnormalities of plasma proteins Status: Acute Assessment and Plan: Trop 0.125 on admission. Echo as mentioned above but no wall motion abnormalities. EKG reviewed showing NSR, LVH, LAE and inverted T waves in the high lateral leads (no old EKG to compare). [place] related to CHF and/or poor renal clearance and/or from elevated TCK. Continue metoprolol, ASA. Lipid profile noted. Repeat troponin. Cardiology following. Probably will need ischemic evaluation at some point. (5) Acute kidney failure: Code(s): N17.9 - Acute kidney failure, unspecified Status: Acute Assessment and Plan: Given extensive family history, this likely represent autosomal dominant polycystic kidney disease. BUN 131, Cr 21.5 on admission. CTA chest showing PCKD. Patient likely to require renal replacement therapy for the remaining of his life. Patient was
[2022-05-21] MEDS: CALCIUM GLUC 1,000 MG/NS 50 ML 1,000 MG/50 ML BAG 100 MG IVPB (12:23)
[2022-05-21] MEDS: FERROUS GLUCONATE 324 MG TABLET PO (17:14)
[2022-05-22] VITALS (25 sets, daily range): BP systolic 135–173; BP diastolic 77–114; PULSE 74–164; RESP 16–20; TEMP 36–37.1; O2SAT 96–100
[2022-05-22] MEDS: HEPARIN SODIUM 5,000 UNITS/ML VIAL 5000 UNITS SUB-Q ×2 (05:41→21:28)
--- NOTE | 2022-05-22 08:00 | EST_ITS ---
Patient Info Name: Piter Donahue Age: 56 years : 1965 Gender: Male Ht: 73 in Wt: 233 lbs BSA: 2.36 m2 HR: 83 bpm BP: 167 / 100 mmHg Heart Rhythm: Sinus Rhythm Exam Date: 05/22/2022 12:43 PM Exam Location: [facility] Stress Patient Status: Inpatient Admit Date: 05/17/2022 Staff Ordering Physician: Mira Valle MD Attending Provider: Krista Hodgson MD Exercise Technologist: Sandra Dawson CT Nurse: NASRIN FONG Exam Type: CA stress lexy w NM Study Info Indications I50.20 - Unspecified systolic (congestive) heart failure A regadenoson stress test was performed. Summary 1. Sinus rhythm with nonspecific T-wave abnormality. 2. No additional ST or T-wave changes noted following Lexiscan injection. 3. None. 4. Clinically and electrocardiographically unremarkable Lexiscan stress test. 5. Myocardial perfusion imaging study to be dictated by Radiology. Protocol: Lexiscan Stress ECG Details Stage: REST Duration (min): 1 min : 52 sec HR (bpm): 86 SBP (mmHg): 167 DBP (mmHg): 100 Stage: REST Duration (min): 7 min : 17 sec HR (bpm): 82 SBP (mmHg): 167 DBP (mmHg): 100 Stage: STAGE 1 Duration (min): 0 min : 59 sec HR (bpm): 95 SBP (mmHg): 158 DBP (mmHg): 105 Stage: RECOVERY Duration (min): 1 min : 0 sec HR (bpm): 104 SBP (mmHg): 158 DBP (mmHg): 105 Stage: RECOVERY Duration (min): 2 min : 0 sec HR (bpm): 103 SBP (mmHg): 158 DBP (mmHg): 105 Stage: RECOVERY Duration (min): 3 min : 0 sec HR (bpm): 102 SBP (mmHg): 150 DBP (mmHg): 100 Stage: RECOVERY Duration (min): 4 min : 0 sec HR (bpm): 101 SBP (mmHg): 150 DBP (mmHg): 100 Stage: RECOVERY Duration (min): 5 min : 0 sec HR (bpm): 100 SBP (mmHg): 157 DBP (mmHg): 99 Stage: RECOVERY Duration (min): 6 min : 0 sec HR (bpm): 99 SBP (mmHg): 157 DBP (mmHg): 99 Stage: RECOVERY Duration (min): 7 min : 0 sec HR (bpm): 99 SBP (mmHg): 158 DBP (mmHg): 99 Stage: RECOVERY Duration (min): 8 min : 0 sec HR (bpm): 102 SBP (mmHg): 158 DBP (mmHg): 99 Stage: RECOVERY Duration (min): 8 min : 44 sec HR (bpm): 100 SBP (mmHg): 166 DBP (mmHg): 99 Rest HR: 82 bpm Peak HR: 106 bpm Rest Sys BP: 167 mmHg Peak Sys BP: 166 mmHg Max Pred HR: 162 bpm % Max Pred HR: 65 % Target HR: 138 bpm Max RPP: 17,596 bpm*mmHg Termination Reason: Completed protocol Cardiac Symptoms: Chest pain Total Time: 1 min : 0 sec Rest Fraire BP: 100 mmHg Peak Fraire BP: 99 mmHg Total Dose: 0.4 mg Resting ECG Sinus rhythm with nonspecific T-wave abnormality. Stress ECG No additional ST or T-wave changes noted following Lexiscan injection. Arrhythmias None. Report Signatures
--- NOTE | 2022-05-22 08:21 | PM.IMPN ---
Progress Note: A&P Assessment and Plan (1) Acute respiratory failure: Code(s): J96.00 - Acute respiratory failure, unspecified whether with hypoxia or hypercapnia Status: Resolved Assessment and Plan: On admission, patient presents to emergency room with complaints of shortness of breath. He was noted having increased respiratory rate. His condition did worsen requiring BiPAP therapy. ABG 7.35/28/230 on BiPAP. CTA chest negative for PE but does show moderate pulmonary edema. it was felt that the respiratory failure was related to pulmonary edema. Patient inspiratory status improved with IV Bumex and daily dialysis. Plan for hemodialysis today. Patient is comfortable, without complaints. Chest x-ray confirm lungs are free from acute opacities. No pleural effusions or pneumothorax. (2) Hypertensive urgency: Code(s): I16.0 - Hypertensive urgency Status: Acute Assessment and Plan: Blood pressure elevated again in the 170s. This is felt to be related to volume overload. Blood pressure was 194/128 on admission. This is certainly related to his renal failure and polycystic kidney disease. Blood pressure is expected to improve with successive renal replacement therapy sessions. Continue uptitration of current medical regiment slowly to improve blood pressure. Hydralazine increased from 25 mg to 50mg PO TID Metoprolol increased from 50 mg to 75 mg PO daily Entresto started Continue bumetanide 2 mg PO daily BP is 173/114 pre-dialysis today. (3) Heart failure: Code(s): I50.9 - Heart failure, unspecified Status: Acute Assessment and Plan: Chest x-ray showing pulmonary edema on admission; confirmed by CTA chest. BNP 13K. Echo shows mild LV enlargement with severe eccentric hypertrophy and moderate global hypokinesis. Bumex given x 1. EF is 40-45% with myocardium showing an unusual echodense texture. He has mild valvular disease, mild pulmonary hypertension and severe grade 3 diastolic dysfunction. [place] patient has Acute systolic and diastolic CHF. [place] related to uncontrolled HTN and renal failure. patient started on hemodialysis. Per cardiology, we will cont hydralazine + nitrates, and adding entresto. We will increase metoprolol to 75 mg BID. Patient was counseled patient about heart failure, cardiomyopathy, hypertension. Patient will certainly need Cardiology follow-up as an outpatient and repeat echocardiogram in 6-8 weeks. (4) Elevated troponin: Code(s): R77.8 - Other specified abnormalities of plasma proteins Status: Acute Assessment and Plan: Trop 0.125 on admission. Echo as mentioned above but no wall motion abnormalities. EKG reviewed showing NSR, LVH, LAE and inverted T waves in the high lateral leads (no old EKG to compare). [place] related to CHF and/or poor renal clearance and/or from elevated TCK. Continue metoprolol, ASA. Lipid profile noted. Repeat troponin. Cardiology following. Probably will need ischemic evaluation at some point. (5) Acute kidney failure: Code(s): N17.9 - Acute kidney failure, unspecified Status: Acute Assessment and Plan: Given extensive family history, this likely represent autosomal dominant polycystic kidney disease. BUN 131, Cr 21.5 on admission. CTA chest showing PCKD. Patient likely to require renal replacement therapy for the remaining of his life. Patient was counseled regarding the need for lifelong dialysis and possible referral to for evaluation for renal transplant after medical stabilization. Plan for outpatient dialysis. (6) Adult polycystic kidney disease: Code(s): Q61.2 - Polycystic kidney, adult type Status: Acute Assessment and Plan: There is establish family history of polycystic kidney disease. Patient will be referred for evaluation for a kidney transplant. (7) Anemia of chronic disease: Code(s): D63.8 - Anemia in other chronic diseases classified e
[2022-05-22] MEDS: CALCIUM ACETATE 667 MG TABLET PO ×3 (09:04→17:02)
[2022-05-22] MEDS: ISOSORBIDE MONONITRATE 30 MG TAB.ER.24H PO (09:04)
[2022-05-22] MEDS: hydrALAZINE HCL 25 MG TABLET PO ×2 (09:04→09:26)
[2022-05-22] MEDS: METOPROLOL TARTRATE 50 MG TAB PO (09:05)
[2022-05-22] MEDS: FERROUS GLUCONATE 324 MG TABLET PO ×2 (09:05→17:02)
[2022-05-22] MEDS: DOCUSATE SODIUM 100 MG CAPSULE PO ×2 (09:05→19:57)
[2022-05-22] MEDS: ASPIRIN 81 MG ENTERIC TABLET PO (09:05)
[2022-05-22] MEDS: METOPROLOL TARTRATE 25 MG TABLET PO (09:26)
[2022-05-22] MEDS: SACUBITRIL/VALSARTAN 12-13 MG TABLET 1 TAB PO ×2 (09:26→19:57)
[2022-05-22 10:31] LABS: Complement Total CH50 >60 U/mL (31-60)
--- NOTE | 2022-05-22 11:57 | PC.NURSE ---
Pt to nuclear medicine for Lexiscan.
--- NOTE | 2022-05-22 13:22 | P.PNCA_ITS ---
Progress Note: A&P Assessment and Plan (1) Acute systolic heart failure: Code(s): I50.21 - Acute systolic (congestive) heart failure Status: Acute Assessment and Plan: Improving w/ control of HTN and dialysis. * Cont hydralazine + nitrates * Continue metoprolol * Counseled patient about heart failure, cardiomyopathy, hypertension (2) Cardiomyopathy: Code(s): I42.9 - Cardiomyopathy, unspecified Status: Acute Assessment and Plan: EF 40-45%. * Probably hypertensive cardiomyopathy * consider MRI as an outpatient * guideline directed medical therapy. * Continue beta-fernando, hydralazine and nitrates. * Entresto or an ARB, spironolactone at some point if OK w/ Dr. Holcomb. * Unable to use Farxiga due to ESRD (3) Hypertensive urgency: Code(s): I16.0 - Hypertensive urgency Status: Acute Assessment and Plan: Hypertensive urgency * improved (4) Elevated troponin: Code(s): R77.8 - Other specified abnormalities of plasma proteins Status: Acute Assessment and Plan: Mildly elevated troponin * Had some chest tightness, but I suspect troponins elevation is due to HTN and CHF * EKG w/ lateral ischemia vs LVH * Awaiting Lexiscan results. further recommendations to follow (5) Acute kidney failure: Code(s): N17.9 - Acute kidney failure, unspecified Status: Acute Assessment and Plan: ARF; found to have polycystic kidneys by CT * Also noted to have a ESR of >140 * Dr. Holcomb consulted * getting dialysis (6) Anemia of chronic disease: Code(s): D63.8 - Anemia in other chronic diseases classified elsewhere Status: Acute Assessment and Plan: NCNC anemia * Likely due to CKD * Being evaluated by the hospitalists for other causes (7) Elevated CPK: Code(s): R74.8 - Abnormal levels of other serum enzymes Status: Acute Assessment and Plan: CPK of 2400 noted. Rhabdomyolysis? Cause? (8) Goiter: Code(s): E04.9 - Nontoxic goiter, unspecified Status: Acute Assessment and Plan: Noted, being eval by hospitalists. Subjective Date/time seen: 05/22/22 13:22 Cardiology follow up for cardiomyopathy, CHF, HTN Feels well today, no complaints. Denies any shortness of breath, chest pain, palpitations. I am seeing him in the cardiac stress lab and he di have some abdominal discomfort and chest tightness with administration of lexiscan Review of Systems Constitutional: Constitutional: Denies fever(s) and Denies headache(s) Eyes: Eyes: Reports no additional eye complaints ENT: Denies headache(s) and Denies nasal congestion Cardiovascular: Cardiovascular: Reports chest pain, Denies pedal edema, Denies lightheadedness, Reports dyspnea and Reports dyspnea on exertion Respiratory: Respiratory: Denies chest congestion, Reports dyspnea and Reports dyspnea on exertion Gastrointestinal: Gastrointestinal: Denies abdominal pain, Denies bloating and Denies hematochezia Genitourinary: Genitourinary: Denies hematuria and Denies dysuria Musculoskeletal: Musculoskeletal: Reports no additional musculoskeletal complaints Integumentary/Breasts: Skin/Breast: Reports system reviewed and no additional complaints, except as docu Neurologic: Reports system reviewed and no additional complaints, except as
--- NOTE | 2022-05-22 13:22 | PM.PNCARD ---
Progress Note: A&P Assessment and Plan (1) Acute systolic heart failure: Code(s): I50.21 - Acute systolic (congestive) heart failure Status: Acute Assessment and Plan: Improving w/ control of HTN and dialysis. Cont hydralazine + nitrates Continue metoprolol Counseled patient about heart failure, cardiomyopathy, hypertension (2) Cardiomyopathy: Code(s): I42.9 - Cardiomyopathy, unspecified Status: Acute Assessment and Plan: EF 40-45%. Probably hypertensive cardiomyopathy consider MRI as an outpatient guideline directed medical therapy. Continue beta-fernando, hydralazine and nitrates. Entresto or an ARB, spironolactone at some point if OK w/ Dr. Holcomb. Unable to use Farxiga due to ESRD (3) Hypertensive urgency: Code(s): I16.0 - Hypertensive urgency Status: Acute Assessment and Plan: Hypertensive urgency improved (4) Elevated troponin: Code(s): R77.8 - Other specified abnormalities of plasma proteins Status: Acute Assessment and Plan: Mildly elevated troponin Had some chest tightness, but I suspect troponins elevation is due to HTN and CHF EKG w/ lateral ischemia vs LVH Awaiting Lexiscan results. further recommendations to follow (5) Acute kidney failure: Code(s): N17.9 - Acute kidney failure, unspecified Status: Acute Assessment and Plan: ARF; found to have polycystic kidneys by CT Also noted to have a ESR of >140 Dr. Holcomb consulted getting dialysis (6) Anemia of chronic disease: Code(s): D63.8 - Anemia in other chronic diseases classified elsewhere Status: Acute Assessment and Plan: NCNC anemia Likely due to CKD Being evaluated by the hospitalists for other causes (7) Elevated CPK: Code(s): R74.8 - Abnormal levels of other serum enzymes Status: Acute Assessment and Plan: CPK of 2400 noted. Rhabdomyolysis? Cause? (8) Goiter: Code(s): E04.9 - Nontoxic goiter, unspecified Status: Acute Assessment and Plan: Noted, being eval by hospitalists. Subjective Date/time seen: 05/22/22 13:22 Cardiology follow up for cardiomyopathy, CHF, HTN Feels well today, no complaints. Denies any shortness of breath, chest pain, palpitations. I am seeing him in the cardiac stress lab and he di have some abdominal discomfort and chest tightness with administration of lexiscan Review of Systems Constitutional: Constitutional: Denies fever(s) and Denies headache(s) Eyes: Eyes: Reports no additional eye complaints ENT: Denies headache(s) and Denies nasal congestion Cardiovascular: Cardiovascular: Reports chest pain, Denies pedal edema, Denies lightheadedness, Reports dyspnea and Reports dyspnea on exertion Respiratory: Respiratory: Denies chest congestion, Reports dyspnea and Reports dyspnea on exertion Gastrointestinal: Gastrointestinal: Denies abdominal pain, Denies bloating and Denies hematochezia Genitourinary: Genitourinary: Denies hematuria and Denies dysuria Musculoskeletal: Musculoskeletal: Reports no additional musculoskeletal complaints Integumentary/Breasts: Skin/Breast: Reports system reviewed and no additional complaints, except as docu Neurologic: Reports system reviewed and no additional complaints, except as documented, Denies behavioral changes, Denies confusion and Denies headache(s) Psychiatric: Psychiatric: Denies behavioral changes and Denies confusion Exam Const: General: cooperative, healthy appearing and comfortable; No confusion Orientation/consciousness: oriented to person, patient oriented x3 and No confusion HENMT: Face/Nose/Sinus: Normal nares present Mouth: Yes moist mucous membranes Eyes: Sclera: sclerae normal EOM: EOMs intact bilaterally Neck: Neck: supple and No no JVD Thyroid: abnormal thyroid (Goiter) Carotids: no bruits Resp: Effort & Inspection: normal respiratory
[2022-05-22] MEDS: BUMETANIDE 1 MG TABLET 2 MG PO (13:31)
[2022-05-22] MEDS: hydrALAZINE HCL 50 MG TABLET PO ×2 (13:31→17:02)
--- NOTE | 2022-05-22 13:32 | PC.NURSE ---
Pt returned from nuclear medicine with no issues noted. Pt in bed and transferred to dialysis
[2022-05-22] MEDS: EPOETIN ALFA-EPBX 10,000 UNITS/ML VIAL 10000 UNITS IV PUSH (14:36)
[2022-05-22] MEDS: SODIUM CHLORIDE 0.9% IV 1,000 ML 999 ML IV CONT (14:36)
[2022-05-22] MEDS: IRON SUCROSE COMPLEX 200 MG in SODIUM CHLORIDE 0.9% IV 50 ML 240 MG IVPB (15:49)
--- NOTE | 2022-05-22 16:35 | PC.NURSE ---
Pt returned from dialysis with no issues noted
--- NOTE | 2022-05-22 17:36 | P.PNNP_ITS ---
Progress Note: A&P Assessment and Plan (1) End stage renal disease: Code(s): N18.6 - End stage renal disease Status: Chronic Assessment and Plan: * due to autosomal dominant polycystic kidney disease * suspect issues with HTN, pulmonary edema, and anemia are all related to this phenomen * he has a tunneled catheter. * Dialysis is underway * heart rate is a bit fast so we will try a little fluid and then stop if the heart rate stays high. (2) Adult polycystic kidney disease: Code(s): Q61.2 - Polycystic kidney, adult type Status: Acute Assessment and Plan: * seems clear by history provided by his sister that this is indeed autosomal dominant polycystic kidney disease * he does report a brother on dialysis but he is not clear on specifics * clear evidence noted by renal ultrasound and CT scan * may require further intervention (debulking versus embolization versus other) in the future (3) Acute diastolic CHF (congestive heart failure): Code(s): I50.31 - Acute diastolic (congestive) heart failure Status: Acute Assessment and Plan: * will continue oral diuretics since has some residual kidney function * fluid removal with dialysis as tolerated * follow respiratory status (4) Acute respiratory failure: Code(s): J96.00 - Acute respiratory failure, unspecified whether with hypoxia or hypercapnia Status: Resolved Assessment and Plan: * due to pulmonary edema * CTA of chest negative for PE (surprised contrast study done given renal dysfunction) * BIPAP therapy as needed * Some fluid taken off today but not a lot. * He is on Bumex 2 mg a day as well (5) Anemia of chronic disease: Code(s): D63.8 - Anemia in other chronic diseases classified elsewhere Status: Acute Assessment and Plan: * most likely secondary to ESRD * dose with Epogen with HD * IV iron with HD as well * check a CBC in the morning (6) Hypertensive urgency: Code(s): I16.0 - Hypertensive urgency Status: Acute Assessment and Plan: * BP doing better with current medications * may improve further with dialysis therapy * would not be opposed to RONNIE-I or ARB therapy at this time Subjective Date/time seen: 05/22/22 17:36 Interval history: Patient is on dialysis. His blood pressure is okay however his heart rate is 150. We tried to stopping the ultrafiltration and heart rate continued to be high. His blood pressure is okay. He does not have any chest pain or shortness of breath and he is comfortable on the machine. he was seen at 4:00 p.m. Exam Narrative: General: WD/WN AA male in NAD Heart: normal S1 and S2; no rub Lungs: decreased at bases Abdomen: soft, nontender, nondistended, positive bowel sounds Extremities: no cyanosis or clubbing; 1+ bilateral lower extremity edema Skin: no rash or nodules Objective Data Vital Signs Vital Signs: Vital Signs - 24 hr 05/21/22 18:00 05/21/22 20:00 05/21/22 21:11 Temperature 98.6 F Pulse Rate 96 97 78 Respiratory Rate 24 H Blood Pressure 154/89 H Pulse Oximetry 94 Oxygen Delivery Fraction of Inspired Oxygen 05/21/22 20:00 05/21/22 20:00 05/21/22 22:00 Temperature Pulse Rate 99 99 88 Respiratory Rate 24 H Blood Pressure Puls
--- NOTE | 2022-05-22 17:36 | PM.PNNEP ---
Progress Note: A&P Assessment and Plan (1) End stage renal disease: Code(s): N18.6 - End stage renal disease Status: Chronic Assessment and Plan: due to autosomal dominant polycystic kidney disease suspect issues with HTN, pulmonary edema, and anemia are all related to this phenomen he has a tunneled catheter. Dialysis is underway heart rate is a bit fast so we will try a little fluid and then stop if the heart rate stays high. (2) Adult polycystic kidney disease: Code(s): Q61.2 - Polycystic kidney, adult type Status: Acute Assessment and Plan: seems clear by history provided by his sister that this is indeed autosomal dominant polycystic kidney disease he does report a brother on dialysis but he is not clear on specifics clear evidence noted by renal ultrasound and CT scan may require further intervention (debulking versus embolization versus other) in the future (3) Acute diastolic CHF (congestive heart failure): Code(s): I50.31 - Acute diastolic (congestive) heart failure Status: Acute Assessment and Plan: will continue oral diuretics since has some residual kidney function fluid removal with dialysis as tolerated follow respiratory status (4) Acute respiratory failure: Code(s): J96.00 - Acute respiratory failure, unspecified whether with hypoxia or hypercapnia Status: Resolved Assessment and Plan: due to pulmonary edema CTA of chest negative for PE (surprised contrast study done given renal dysfunction) BIPAP therapy as needed Some fluid taken off today but not a lot. He is on Bumex 2 mg a day as well (5) Anemia of chronic disease: Code(s): D63.8 - Anemia in other chronic diseases classified elsewhere Status: Acute Assessment and Plan: most likely secondary to ESRD dose with Epogen with HD IV iron with HD as well check a CBC in the morning (6) Hypertensive urgency: Code(s): I16.0 - Hypertensive urgency Status: Acute Assessment and Plan: BP doing better with current medications may improve further with dialysis therapy would not be opposed to RONNIE-I or ARB therapy at this time Subjective Date/time seen: 05/22/22 17:36 Interval history: Patient is on dialysis. His blood pressure is okay however his heart rate is 150. We tried to stopping the ultrafiltration and heart rate continued to be high. His blood pressure is okay. He does not have any chest pain or shortness of breath and he is comfortable on the machine. he was seen at 4:00 p.m. Exam Narrative: General: WD/WN AA male in NAD Heart: normal S1 and S2; no rub Lungs: decreased at bases Abdomen: soft, nontender, nondistended, positive bowel sounds Extremities: no cyanosis or clubbing; 1+ bilateral lower extremity edema Skin: no rash or nodules Objective Data Vital Signs Vital Signs: Vital Signs - 24 hr 05/21/22 18:00 05/21/22 20:00 05/21/22 21:11 Temperature 98.6 F Pulse Rate 96 97 78 Respiratory Rate 24 H Blood Pressure 154/89 H Pulse Oximetry 94 Oxygen Delivery Fraction of Inspired Oxygen 05/21/22 20:00 05/21/22 20:00 05/21/22 22:00 Temperature Pulse Rate 99 99 88 Respiratory Rate 24 H Blood Pressure Pulse Oximetry 94 Oxygen Delivery Room Air Fraction of Inspired Oxygen 50 05/21/22 23:33 05/21/22 23:33 05/21/22 23:50 Temperature Pulse Rate 86 86 83 Respiratory Rate 24 H 17 Blood Pressure Pulse Oximetry 94 96 Oxygen Delivery Room Air BiPAP Fraction of Inspired Oxygen 50 05/22/22 01:15 05/22/22 00:00 05/22/22 02:00 Temperature 98.1 F Pulse Rate 83 74 Respiratory Rate 20 Blood Pressure 158/91 H Pulse Oximetry 96 98 Oxygen Delivery BiPAP Fraction of Inspired Oxygen 30 05/22/22 03:45 05/22/22 03:45 05/22/22 04:00 Temperature 97.8 F Pulse Rate 94 94 90 Respiratory Rate 20 18 Blood Pressure
--- NOTE | 2022-05-22 18:19 | PC.NURSE ---
Notified Dr. Gaston that patient's heart rate continues to increase since returning from dialysis. Pt's heart rate was initially in the low 100's; it has now increased into the 120's-130's. Dr. Gaston has spoken with Dr. De La Paz regarding this issue, and they suspect that the patient had too much fluid removed and is now a little dry . Dr. Gaston to put in an order for some IV fluids to see if this will help resolve the patient's tachycardia.
[2022-05-22] MEDS: SODIUM CHLORIDE 0.9% IV 1,000 ML 100 ML IV CONT (18:41)
[2022-05-22 19:10] LABS: Hematocrit 27.7 % (42.0-52.0); Hemoglobin 8.7 g/dL (14.0-18.0); Mean Corpuscular HGB Conc 31.4 g/dl (32-36); Mean Corpuscular Hemoglobin 29.4 pg (26-34); Mean Corpuscular Volume 93.6 fl (80-100); Mean Platelet Volume 10.5 fl (7.4-10.4); Platelet Count Result 220 k/mm3 (150-375); Red Blood Count 2.96 M/mm3 (4.6-6.20); Red Cell Distribution Width 14.2 % (11.5-14.5); White Blood Count 9.9 K/mm3 (4.5-10.0)
[2022-05-22 19:29] LABS: Anion Gap 5 mmol/L (8-16); Blood Urea Nitrogen 58 mg/dL (9-20); Calcium 6.9 mg/dL (8.4-10.2); Carbon Dioxide 31 mmol/L (22-30); Chloride 98 mmol/L (98-107); Glucose 146 mg/dL (65-110); Potassium 4.1 mmol/L (3.4-5.0); Sodium 134 mmol/L (137-145)
[2022-05-22 19:32] LABS: Estimated CRCL calculation 8 ml/min; Estimated Glomerular Filt Rate 5
[2022-05-22] MEDS: METOPROLOL TARTRATE 25 MG TABLET 75 MG PO (19:57)
[2022-05-23] VITALS (10 sets, daily range): BP systolic 140–155; BP diastolic 91–99; PULSE 80–109; RESP 16–18; TEMP 36.6–36.8; O2SAT 99–100
[2022-05-23] MEDS: HEPARIN SODIUM 5,000 UNITS/ML VIAL 5000 UNITS SUB-Q ×3 (04:53→20:40)
[2022-05-23 05:06] LABS: Hematocrit 25.5 % (42.0-52.0); Hemoglobin 7.7 g/dL (14.0-18.0); Mean Corpuscular HGB Conc 30.2 g/dl (32-36); Mean Corpuscular Volume 92.7 fl (80-100); Mean Platelet Volume 10.8 fl (7.4-10.4); Platelet Count Result 221 k/mm3 (150-375); Red Blood Count 2.75 M/mm3 (4.6-6.20); Red Cell Distribution Width 14.1 % (11.5-14.5); White Blood Count 7.2 K/mm3 (4.5-10.0)
[2022-05-23 05:18] LABS: Anion Gap 4 mmol/L (8-16); Blood Urea Nitrogen 62 mg/dL (9-20); Calcium 6.3 mg/dL (8.4-10.2); Carbon Dioxide 32 mmol/L (22-30); Chloride 102 mmol/L (98-107); Glucose 108 mg/dL (65-110); Potassium 4.5 mmol/L (3.4-5.0); Sodium 138 mmol/L (137-145)
[2022-05-23 05:19] LABS: Estimated CRCL calculation 7 ml/min; Estimated Glomerular Filt Rate 4
[2022-05-23] MEDS: METOPROLOL TARTRATE 25 MG TABLET 75 MG PO ×2 (08:38→20:40)
[2022-05-23] MEDS: CALCIUM ACETATE 667 MG TABLET PO ×3 (08:38→16:54)
[2022-05-23] MEDS: SACUBITRIL/VALSARTAN 12-13 MG TABLET 1 TAB PO ×2 (08:38→20:40)
[2022-05-23] MEDS: ASPIRIN 81 MG ENTERIC TABLET PO (08:39)
[2022-05-23] MEDS: DOCUSATE SODIUM 100 MG CAPSULE PO ×2 (08:39→20:40)
[2022-05-23] MEDS: FERROUS GLUCONATE 324 MG TABLET PO ×2 (08:39→16:55)
[2022-05-23] MEDS: ISOSORBIDE MONONITRATE 30 MG TAB.ER.24H PO (08:39)
[2022-05-23] MEDS: hydrALAZINE HCL 50 MG TABLET PO ×3 (08:39→16:55)
[2022-05-23] MEDS: BUMETANIDE 1 MG TABLET 2 MG PO (08:39)
--- NOTE | 2022-05-23 08:54 | P.PNNP_ITS ---
Progress Note: A&P Assessment and Plan (1) End stage renal disease: Code(s): N18.6 - End stage renal disease Status: Chronic Assessment and Plan: * due to autosomal dominant polycystic kidney disease * suspect issues with HTN, pulmonary edema, and anemia are all related to this phenomen * he has a tunneled catheter. * hemodialysis due tomorrow * yesterday he had high heart rate. However on telemetry down stairs his heart rate was only around 100 when the dialysis patient said it was 150. Overnight his heart rate has been around 100. (2) Adult polycystic kidney disease: Code(s): Q61.2 - Polycystic kidney, adult type Status: Acute Assessment and Plan: * seems clear by history provided by his sister that this is indeed autosomal dominant polycystic kidney disease * he does report a brother on dialysis but he is not clear on specifics * clear evidence noted by renal ultrasound and CT scan * may require further intervention (debulking versus embolization versus other) in the future (3) Acute diastolic CHF (congestive heart failure): Code(s): I50.31 - Acute diastolic (congestive) heart failure Status: Acute Assessment and Plan: * will continue oral diuretics since has some residual kidney function * Removing fluid with dialysis. * We seem to have gotten to an endpoint as he has no swelling in his breathing is better. He is off oxygen. * This is improved. (4) Acute respiratory failure: Code(s): J96.00 - Acute respiratory failure, unspecified whether with hypoxia or hypercapnia Status: Resolved Assessment and Plan: * Improved. * Remove dialysis as tolerated on dialysis. * He is on Bumex 2 mg a day as well (5) Anemia of chronic disease: Code(s): D63.8 - Anemia in other chronic diseases classified elsewhere Status: Acute Assessment and Plan: * most likely secondary to ESRD * dosing with Epogen with HD * IV iron with HD as well * Hemoglobin 7.7 today. (6) Hypertensive urgency: Code(s): I16.0 - Hypertensive urgency Status: Acute Assessment and Plan: * Systolic improved. It is running between 130 and 160 * may improve further with dialysis therapy * would not be opposed to RONNIE-I or ARB therapy at this time Subjective Date/time seen: 05/23/22 08:54 Interval history: Patient feels okay. No chest pain or shortness of breath eating okay Exam Narrative: General: WD/WN AA male in NAD Heart: normal S1 and S2; no rub or gallop Lungs: decreased at bases Abdomen: soft, nontender, nondistended, positive bowel sounds Extremities: no cyanosis or clubbing; minimal edema Skin: no rash Objective Data Vital Signs Vital Signs: Vital Signs - 24 hr 05/22/22 09:05 05/22/22 09:26 05/22/22 12:00 Temperature Pulse Rate 112 H 93 92 Respiratory Rate Blood Pressure Pulse Oximetry Oxygen Delivery 05/22/22 13:35 05/22/22 13:43 05/22/22 14:00 Temperature 98.0 F Pulse Rate 92 131 H 111 H Respiratory Rate 16 Blood Pressure 159/98 H 149/92 H 153/94 H Pulse Oximetry Oxygen Delivery 05/22/22 14:20 05/22/22 14:40 05/22/22 15:00 Temperature Pulse Rate 112 H 127
--- NOTE | 2022-05-23 08:54 | PM.PNNEP ---
Progress Note: A&P Assessment and Plan (1) End stage renal disease: Code(s): N18.6 - End stage renal disease Status: Chronic Assessment and Plan: due to autosomal dominant polycystic kidney disease suspect issues with HTN, pulmonary edema, and anemia are all related to this phenomen he has a tunneled catheter. hemodialysis due tomorrow yesterday he had high heart rate. However on telemetry down stairs his heart rate was only around 100 when the dialysis patient said it was 150. Overnight his heart rate has been around 100. (2) Adult polycystic kidney disease: Code(s): Q61.2 - Polycystic kidney, adult type Status: Acute Assessment and Plan: seems clear by history provided by his sister that this is indeed autosomal dominant polycystic kidney disease he does report a brother on dialysis but he is not clear on specifics clear evidence noted by renal ultrasound and CT scan may require further intervention (debulking versus embolization versus other) in the future (3) Acute diastolic CHF (congestive heart failure): Code(s): I50.31 - Acute diastolic (congestive) heart failure Status: Acute Assessment and Plan: will continue oral diuretics since has some residual kidney function Removing fluid with dialysis. We seem to have gotten to an endpoint as he has no swelling in his breathing is better. He is off oxygen. This is improved. (4) Acute respiratory failure: Code(s): J96.00 - Acute respiratory failure, unspecified whether with hypoxia or hypercapnia Status: Resolved Assessment and Plan: Improved. Remove dialysis as tolerated on dialysis. He is on Bumex 2 mg a day as well (5) Anemia of chronic disease: Code(s): D63.8 - Anemia in other chronic diseases classified elsewhere Status: Acute Assessment and Plan: most likely secondary to ESRD dosing with Epogen with HD IV iron with HD as well Hemoglobin 7.7 today. (6) Hypertensive urgency: Code(s): I16.0 - Hypertensive urgency Status: Acute Assessment and Plan: Systolic improved. It is running between 130 and 160 may improve further with dialysis therapy would not be opposed to RONNIE-I or ARB therapy at this time Subjective Date/time seen: 05/23/22 08:54 Interval history: Patient feels okay. No chest pain or shortness of breath eating okay Exam Narrative: General: WD/WN AA male in NAD Heart: normal S1 and S2; no rub or gallop Lungs: decreased at bases Abdomen: soft, nontender, nondistended, positive bowel sounds Extremities: no cyanosis or clubbing; minimal edema Skin: no rash Objective Data Vital Signs Vital Signs: Vital Signs - 24 hr 05/22/22 09:05 05/22/22 09:26 05/22/22 12:00 Temperature Pulse Rate 112 H 93 92 Respiratory Rate Blood Pressure Pulse Oximetry Oxygen Delivery 05/22/22 13:35 05/22/22 13:43 05/22/22 14:00 Temperature 98.0 F Pulse Rate 92 131 H 111 H Respiratory Rate 16 Blood Pressure 159/98 H 149/92 H 153/94 H Pulse Oximetry Oxygen Delivery 05/22/22 14:20 05/22/22 14:40 05/22/22 15:00 Temperature Pulse Rate 112 H 127 H 135 H Respiratory Rate Blood Pressure 155/91 H 154/91 H 153/94 H Pulse Oximetry Oxygen Delivery 05/22/22 15:20 05/22/22 15:40 05/22/22 16:00 Temperature Pulse Rate 138 H 151 H 157 H Respiratory Rate Blood Pressure 140/95 H 135/81 141/80 H Pulse Oximetry Oxygen Delivery 05/22/22 16:12 05/22/22 16:25 05/22/22 16:35 Temperature 98.0 F Pulse Rate 145 H 164 H 108 H Respiratory Rate 16 Blood Pressure 156/85 H 164/84 H Pulse Oximetry Oxygen Delivery 05/22/22 16:00 05/22/22 19:57 05/22/22 20:00 Temperature 98.4 F Pulse Rate 104 H 118 H 120 H Respiratory Rate 16 Blood Pressure 138/77 Pulse Oximetry 100 Oxygen Delivery 05/22/22 20:00
--- NOTE | 2022-05-23 13:00 | PM.IMPN ---
Progress Note: A&P Assessment and Plan (1) Acute respiratory failure: Code(s): J96.00 - Acute respiratory failure, unspecified whether with hypoxia or hypercapnia Status: Resolved Assessment and Plan: On admission, patient presents to emergency room with complaints of shortness of breath. He was noted having increased respiratory rate. His condition did worsen requiring BiPAP therapy. ABG 7.35/28/230 on BiPAP. CTA chest negative for PE but does show moderate pulmonary edema. it was felt that the respiratory failure was related to pulmonary edema. Patient inspiratory status improved with IV Bumex and daily dialysis. Patient is comfortable, without complaints. Chest x-ray confirm lungs are free from acute opacities. No pleural effusions or pneumothorax. (2) Hypertensive urgency: Code(s): I16.0 - Hypertensive urgency Status: Acute Assessment and Plan: Blood pressure elevated again in the 170s. This is felt to be related to volume overload. Blood pressure was 194/128 on admission. This is certainly related to his renal failure and polycystic kidney disease. Blood pressure is expected to improve with successive renal replacement therapy sessions. Continue uptitration of current medical regiment slowly to improve blood pressure. Hydralazine increased from 25 mg to 50mg PO TID Metoprolol increased from 50 mg to 75 mg PO daily Entresto started Continue bumetanide 2 mg PO daily (3) Heart failure: Code(s): I50.9 - Heart failure, unspecified Status: Acute Assessment and Plan: Chest x-ray showing pulmonary edema on admission; confirmed by CTA chest. BNP 13K. Echo shows mild LV enlargement with severe eccentric hypertrophy and moderate global hypokinesis. Bumex given x 1. EF is 40-45% with myocardium showing an unusual echodense texture. He has mild valvular disease, mild pulmonary hypertension and severe grade 3 diastolic dysfunction. [place] patient has Acute systolic and diastolic CHF. [place] related to uncontrolled HTN and renal failure. patient started on hemodialysis. Per cardiology, we will cont hydralazine + nitrates, and adding entresto. We will increase metoprolol to 75 mg BID. Patient was counseled patient about heart failure, cardiomyopathy, hypertension. Patient will certainly need Cardiology follow-up as an outpatient and repeat echocardiogram in 6-8 weeks. (4) Elevated troponin: Code(s): R77.8 - Other specified abnormalities of plasma proteins Status: Acute Assessment and Plan: Trop 0.125 on admission. Echo as mentioned above but no wall motion abnormalities. EKG reviewed showing NSR, LVH, LAE and inverted T waves in the high lateral leads (no old EKG to compare). [place] related to CHF and/or poor renal clearance and/or from elevated TCK. Continue metoprolol, ASA. Lipid profile noted. Repeat troponin. Cardiology following. Probably will need ischemic evaluation at some point. (5) Acute kidney failure: Code(s): N17.9 - Acute kidney failure, unspecified Status: Acute Assessment and Plan: Given extensive family history, this likely represent autosomal dominant polycystic kidney disease. BUN 131, Cr 21.5 on admission. CTA chest showing PCKD. Patient likely to require renal replacement therapy for the remaining of his life. Patient was counseled regarding the need for lifelong dialysis and possible referral to for evaluation for renal transplant after medical stabilization. Plan for outpatient dialysis. care coordination consultation for outpatient hemodialysis set up (6) Adult polycystic kidney disease: Code(s): Q61.2 - Polycystic kidney, adult type Status: Acute Assessment and Plan: There is establish family history of polycystic kidney disease. Patient will be referred for evaluation for a kidney transplant. (7) Anemia of chronic disease: Code(s): D63.8 - Anemia in other chronic diseases classified
--- NOTE | 2022-05-23 13:55 | PC.NURSE ---
This patient, Piter Donahue, was transferred to [[id number]] on 05/23/22 at 1355. Personal belongings sent with patient. Report given to [TERRI Lau @ [phone] ]. Appropriate documentation sent with patient.
[2022-05-23 19:23] LABS: Alveolar/Arterial O2 Gradient 33.8 mmHg; Base Excess ABG 5.8 mEq/l (+/-2.0); Fractional Inspired Oxygen 21 %; HCO3 ABG 29.6 mEq/l (22.0-26.0); Oxygen Content ABG 11.6 %vol (16.0-22.0); Oxygen Saturation ABG 94.9 % (95.0-100.0); Oxyhemoglobin 93.2 % THb (90.0-100.0); PCO2 ABG 39.8 mmHg (35.0-45.0); PO2 ABG 68.3 mmHg (80.0-100.0); PO2 FiO2 Ratio Arterial Blood 3.25 %; Total Hemoglobin 8.8 g/dL (12.0-18.0); pH ABG 7.489 (7.350-7.450)
[2022-05-23 19:24] LABS: Device ROOM AIR; Modified Allen's Test Pass; Site Drawn RIGHT RADIAL
[2022-05-23 20:14] LABS: Anti Glomerular Basement Memb <1.0 AI (<1.0)
[2022-05-23 23:51] LABS: Osmolality, Urine 357 mOsm/kg (50-1200)
[2022-05-24] VITALS (24 sets, daily range): BP systolic 117–173; BP diastolic 79–109; PULSE 76–165; RESP 16–18; TEMP 36–36.9; O2SAT 97–100
[2022-05-24] MEDS: HEPARIN SODIUM 5,000 UNITS/ML VIAL 5000 UNITS SUB-Q ×3 (05:54→20:55)
[2022-05-24 07:23] LABS: Hematocrit 24.9 % (42.0-52.0); Hemoglobin 7.6 g/dL (14.0-18.0); Mean Corpuscular HGB Conc 30.5 g/dl (32-36); Mean Corpuscular Hemoglobin 29.5 pg (26-34); Mean Corpuscular Volume 96.5 fl (80-100); Mean Platelet Volume 10.4 fl (7.4-10.4); Platelet Count Result 208 k/mm3 (150-375); Red Blood Count 2.58 M/mm3 (4.6-6.20); Red Cell Distribution Width 14.4 % (11.5-14.5); White Blood Count 5.7 K/mm3 (4.5-10.0)
[2022-05-24 07:36] LABS: Alanine Aminotransferase 18 U/L (6-50); Alkaline Phosphatase 56 U/L (38-126); Anion Gap 6 mmol/L (8-16); Aspartate Amino Transferase 36 U/L (17-59); Bilirubin,Total 0.3 mg/dL (0.2-1.3); Blood Urea Nitrogen 77 mg/dL (9-20); Calcium 5.8 mg/dL (8.4-10.2); Carbon Dioxide 29 mmol/L (22-30); Chloride 103 mmol/L (98-107); Estimated CRCL calculation 5 ml/min; Estimated Glomerular Filt Rate 4; Glucose 91 mg/dL (65-110); Magnesium 1.8 mg/dL (1.6-2.3); Phosphorus 7.5 mg/dL (2.5-4.5); Potassium 4.6 mmol/L (3.4-5.0); Sodium 138 mmol/L (137-145)
--- NOTE | 2022-05-24 08:33 | PM.IMPN ---
Progress Note: A&P Assessment and Plan (1) Acute respiratory failure: Code(s): J96.00 - Acute respiratory failure, unspecified whether with hypoxia or hypercapnia Status: Resolved Assessment and Plan: On admission, patient presents to emergency room with complaints of shortness of breath. He was noted having increased respiratory rate. His condition did worsen requiring BiPAP therapy. ABG 7.35/28/230 on BiPAP. CTA chest negative for PE but does show moderate pulmonary edema. it was felt that the respiratory failure was related to pulmonary edema. Patient inspiratory status improved with IV Bumex and daily dialysis. Patient is comfortable, without complaints. Chest x-ray confirm lungs are free from acute opacities. No pleural effusions or pneumothorax. Remans on room air. (2) Hypertensive urgency: Code(s): I16.0 - Hypertensive urgency Status: Acute Assessment and Plan: Blood pressure was 194/128 on admission. [place] related to his renal failure and polycystic kidney disease. Hydralazine increased from 25 mg to 50mg PO TID Metoprolol increased from 50 mg to 75 mg PO Q12h Entresto 12/13mg Q12h Imdur 30mg daily Continue bumetanide 2 mg PO daily Patient's blood pressure was reviewed on 05/24 Blood pressure improved running systolic 130-150 Blood pressure is expected to improve with successive renal replacement therapy sessions. Will continue current medications. (3) Heart failure: Code(s): I50.9 - Heart failure, unspecified Status: Acute Assessment and Plan: Chest x-ray showing pulmonary edema on admission; confirmed by CTA chest. BNP 13K. Echo shows mild LV enlargement with severe eccentric hypertrophy and moderate global hypokinesis. Bumex given x 1. EF is 40-45% with myocardium showing an unusual echodense texture. He has mild valvular disease, mild pulmonary hypertension and severe grade 3 diastolic dysfunction. [place] patient has acute systolic and diastolic CHF related to uncontrolled HTN and renal failure. Patient started on hemodialysis. Continue current medications including Entresto and Metoprolol. Patient has been counseled about heart failure, cardiomyopathy and hypertension. Patient will certainly need Cardiology follow-up as an outpatient and repeat echocardiogram in 6-8 weeks. Use HD to control fluid status. (4) Elevated troponin: Code(s): R77.8 - Other specified abnormalities of plasma proteins Status: Acute Assessment and Plan: Trop 0.125 on admission. Echo as mentioned above but no wall motion abnormalities. EKG reviewed showing NSR, LVH, LAE and inverted T waves in the high lateral leads (no old EKG to compare). [place] elevated Trop related to CHF and/or poor renal clearance and/or from elevated TCK. Continue metoprolol, ASA. Lipid profile noted. Lexiscan stress results noted. Cardiology following. (5) Acute kidney failure: Code(s): N17.9 - Acute kidney failure, unspecified Status: Acute Assessment and Plan: Given extensive family history, this likely represent autosomal dominant polycystic kidney disease. BUN 131, Cr 21.5 on admission. CTA chest showing PCKD. Patient likely to require renal replacement therapy for the remaining of his life. Patient was counseled regarding the need for lifelong dialysis and possible referral to for evaluation for renal transplant after medical stabilization. Plan for outpatient dialysis. care coordination consultation for outpatient hemodialysis set up (6) Adult polycystic kidney disease: Code(s): Q61.2 - Polycystic kidney, adult type Status: Acute Assessment and Plan: There is establish family history of polycystic kidney disease. Patient will be referred for evaluation for a kidney transplant. (7) Anemia of chronic disease: Code(s): D63.8 - Anemia in other chronic diseases classified elsewhere Status: Acute Assessment and Plan: Hgb 7.5
[2022-05-24] MEDS: EPOETIN ALFA-EPBX 10,000 UNITS/ML VIAL 10000 UNITS IV PUSH (09:58)
[2022-05-24 10:57] LABS: Vitamin D 25 Hydroxy 13.5 ng/mL
[2022-05-24] MEDS: hydrALAZINE HCL 50 MG TABLET PO ×2 (11:17→17:03)
[2022-05-24] MEDS: ISOSORBIDE MONONITRATE 30 MG TAB.ER.24H PO (11:17)
[2022-05-24] MEDS: DOCUSATE SODIUM 100 MG CAPSULE PO ×2 (11:17→20:54)
[2022-05-24] MEDS: METOPROLOL TARTRATE 25 MG TABLET 75 MG PO ×2 (11:17→20:54)
[2022-05-24] MEDS: BUMETANIDE 1 MG TABLET 2 MG PO (11:17)
[2022-05-24] MEDS: ASPIRIN 81 MG ENTERIC TABLET PO (11:17)
[2022-05-24] MEDS: CALCIUM ACETATE 667 MG TABLET PO ×2 (11:17→17:02)
[2022-05-24] MEDS: SACUBITRIL/VALSARTAN 12-13 MG TABLET 1 TAB PO ×2 (11:18→20:54)
[2022-05-24] MEDS: FERROUS GLUCONATE 324 MG TABLET PO ×2 (11:18→17:03)
--- NOTE | 2022-05-24 16:45 | PM.PNNEP ---
Progress Note: A&P Assessment and Plan (1) End stage renal disease: Code(s): N18.6 - End stage renal disease Status: Chronic Assessment and Plan: patient is due for dialysis today. Will remove fluid as tolerated. (2) Adult polycystic kidney disease: Code(s): Q61.2 - Polycystic kidney, adult type Status: Acute Assessment and Plan: The patient denies any kidney pain. No bloody urine or history of kidney stones. No headaches. (3) Acute diastolic CHF (congestive heart failure): Code(s): I50.31 - Acute diastolic (congestive) heart failure Status: Acute Assessment and Plan: This is from his severe hypertension. Pulmonary edema was present on admission. Chest x-ray has cleared. Lexiscan shows no ischemia or infarct. EF 51%. (4) Acute respiratory failure: Code(s): J96.00 - Acute respiratory failure, unspecified whether with hypoxia or hypercapnia Status: Resolved Assessment and Plan: Improved with fluid removal (5) Anemia of chronic disease: Code(s): D63.8 - Anemia in other chronic diseases classified elsewhere Status: Acute Assessment and Plan: hemoglobin 7.6. This is stable. T sat was low. So he got 2 doses of iron sucrose As far as I can tell from the MA R. for some reason Epogen was discontinued. I asked the nurse to give him some today. (6) Hypertensive urgency: Code(s): I16.0 - Hypertensive urgency Status: Acute Assessment and Plan: Blood pressure is doing much better ranging from 117-152. Subjective Date/time seen: 05/24/22 07:00 Interval history: Patient is comfortable in bed. He is generally weak. He is due for dialysis today Exam Narrative: WDWN in NAD skin no rash head ncat lungs clear cor reg no rub abd BS+ nontender and soft ext trace edema. Objective Data Vital Signs Vital Signs: Vital Signs - 24 hr 05/23/22 20:40 05/23/22 20:00 05/23/22 21:43 Temperature 98.1 F Pulse Rate 93 80 Respiratory Rate 16 Blood Pressure 140/91 H Pulse Oximetry 99 100 Oxygen Delivery Nasal Cannula Oxygen Flow Rate 2 05/23/22 20:00 05/24/22 00:00 05/24/22 04:00 Temperature Pulse Rate 99 82 84 Respiratory Rate Blood Pressure Pulse Oximetry Oxygen Delivery Oxygen Flow Rate 05/24/22 05:52 05/24/22 08:47 05/24/22 08:35 Temperature 98.3 F 98.3 F Pulse Rate 87 83 87 Respiratory Rate 16 16 Blood Pressure 156/88 H 163/104 H 157/109 H Pulse Oximetry 100 Oxygen Delivery Oxygen Flow Rate 05/24/22 09:10 05/24/22 09:30 05/24/22 09:50 Temperature Pulse Rate 80 76 81 Respiratory Rate Blood Pressure 160/103 H 153/97 H 162/98 H Pulse Oximetry Oxygen Delivery Oxygen Flow Rate 05/24/22 10:10 05/24/22 10:30 05/24/22 10:50 Temperature Pulse Rate 97 102 H 106 H Respiratory Rate Blood Pressure 173/107 H 168/105 H 152/100 H Pulse Oximetry Oxygen Delivery Oxygen Flow Rate 05/24/22 11:10 05/24/22 11:30 05/24/22 11:17 Temperature Pulse Rate 161 H 165 H 160 H Respiratory Rate Blood Pressure 128/84 117/79 Pulse Oximetry Oxygen Delivery Oxygen Flow Rate 05/24/22 11:48 05/24/22 11:55 05/24/22 14:00 Temperature 98.3 F 97.8 F Pulse Rate 124 H 140 H 88 Respiratory Rate 16 16 Blood Pressure 125/80 133/89 141/80 H Pulse Oximetry 97 Oxygen Delivery Oxygen Flow Rate Intake/Output Intake/Output: Intake & Output 05/21/22 05/22/22 05/23/22 05/24/22 23:59 23:59 23:59 23:59 Intake Total 1360 1380 900 0 Output Total 750 2945 300 2850 Balance 610 -9286 600 -285 Meds/Results Medications: Active Medications Generic Name Dose Route Start Last Admin Trade Name Freq PRN Reason Stop Dose Admin Acetaminophen 500 mg 05/19/22 13:26 Acetaminophen 500 Mg Tablet PO Q6H PRN Mild Pain (1-3) or Fever Hydrocodone Bitart/
[2022-05-24 18:29] LABS: Strep DNASE B Antibody <95 U/mL (<301)
[2022-05-24 19:30] LABS: Hepatitis B Core Ab Total Nonreactive (Nonreactive)
[2022-05-25] VITALS (7 sets, daily range): BP systolic 126–141; BP diastolic 70–82; PULSE 76–90; RESP 17–18; TEMP 36.6; O2SAT 98–99
[2022-05-25] MEDS: HEPARIN SODIUM 5,000 UNITS/ML VIAL 5000 UNITS SUB-Q ×3 (05:36→21:35)
[2022-05-25 06:39] LABS: Hemoglobin 7.8 g/dL (14.0-18.0); Mean Corpuscular Hemoglobin 29.2 pg (26-34); Mean Corpuscular Volume 97.4 fl (80-100); Mean Platelet Volume 10.1 fl (7.4-10.4); Platelet Count Result 220 k/mm3 (150-375); Red Blood Count 2.67 M/mm3 (4.6-6.20); Red Cell Distribution Width 15.2 % (11.5-14.5); White Blood Count 5.4 K/mm3 (4.5-10.0)
[2022-05-25 06:53] LABS: Anion Gap 6 mmol/L (8-16); Blood Urea Nitrogen 56 mg/dL (9-20); Calcium 6.2 mg/dL (8.4-10.2); Carbon Dioxide 28 mmol/L (22-30); Chloride 102 mmol/L (98-107); Glucose 90 mg/dL (65-110); Phosphorus 6.6 mg/dL (2.5-4.5); Potassium 4.7 mmol/L (3.4-5.0); Sodium 136 mmol/L (137-145)
[2022-05-25 07:21] LABS: Estimated CRCL calculation 7 ml/min; Estimated Glomerular Filt Rate 5
[2022-05-25] MEDS: BUMETANIDE 1 MG TABLET 2 MG PO (09:59)
[2022-05-25] MEDS: ASPIRIN 81 MG ENTERIC TABLET PO (09:59)
[2022-05-25] MEDS: SACUBITRIL/VALSARTAN 12-13 MG TABLET 1 TAB PO ×2 (09:59→19:57)
[2022-05-25] MEDS: FERROUS GLUCONATE 324 MG TABLET PO ×2 (09:59→17:38)
[2022-05-25] MEDS: CALCIUM ACETATE 667 MG TABLET PO ×3 (10:00→17:39)
[2022-05-25] MEDS: hydrALAZINE HCL 50 MG TABLET PO ×3 (10:00→17:38)
[2022-05-25] MEDS: DOCUSATE SODIUM 100 MG CAPSULE PO ×2 (10:00→19:57)
[2022-05-25] MEDS: ISOSORBIDE MONONITRATE 30 MG TAB.ER.24H PO (10:00)
[2022-05-25] MEDS: METOPROLOL TARTRATE 25 MG TABLET 75 MG PO ×2 (10:01→19:57)
[2022-05-25] MEDS: IRON SUCROSE COMPLEX 200 MG in SODIUM CHLORIDE 0.9% IV 50 ML 120 MG IVPB (10:02)
--- NOTE | 2022-05-25 15:29 | PM.IMPN ---
Progress Note: A&P Assessment and Plan (1) Acute respiratory failure: Code(s): J96.00 - Acute respiratory failure, unspecified whether with hypoxia or hypercapnia Status: Resolved Assessment and Plan: On admission, patient presents to emergency room with complaints of SOB and had increased respiratory rate. His condition did worsen requiring BiPAP therapy. ABG 7.35/28/230 on BiPAP. CTA chest negative for PE but does show moderate pulmonary edema. it was felt that the respiratory failure was related to pulmonary edema. Patient respiratory status improved with IV Bumex and dialysis. Patient is comfortable, without complaints. Weaned to room air. CXR today reviewed showing CMG and clear lung fletcher. Respiratory failure resolved. (2) Hypertensive urgency: Code(s): I16.0 - Hypertensive urgency Status: Acute Assessment and Plan: Blood pressure was 194/128 on admission. [place] related to his renal failure and polycystic kidney disease. Medications adjusted. Currently on Hydralazine, Metoprolol, Entresto and Imdur. Also on Bumex as well. Patient's blood pressure was reviewed on 05/25 Blood pressure improved running systolic 120-140 Will continue current medications. Continue to monitor (3) Heart failure: Code(s): I50.9 - Heart failure, unspecified Status: Acute Assessment and Plan: Chest x-ray showing pulmonary edema on admission; confirmed by CTA chest. BNP 13K. Echo shows mild LV enlargement with severe eccentric hypertrophy, moderate global hypokinesis, EF is 40-45% with myocardium showing an unusual echodense texture. He has mild valvular disease, mild pulmonary hypertension and severe grade 3 diastolic dysfunction. [place] patient has acute systolic and diastolic CHF related to uncontrolled HTN and renal failure. Bumex given x 1. Patient started on hemodialysis. Continue current medications including Entresto and Metoprolol. Patient has been counseled about heart failure, cardiomyopathy and hypertension. Patient will certainly need Cardiology follow-up as an outpatient and repeat echocardiogram in 6-8 weeks. Use HD to control fluid status. (4) Elevated troponin: Code(s): R77.8 - Other specified abnormalities of plasma proteins Status: Acute Assessment and Plan: Trop 0.125 on admission. Echo as mentioned above but no focal wall motion abnormalities. EKG reviewed showing NSR, LVH, LAE and inverted T waves in the high lateral leads (no old EKG to compare). [place] elevated Trop related to CHF and/or poor renal clearance and/or from elevated TCK. Continue metoprolol, ASA. Lipid profile noted. Lexiscan stress results noted. Cardiology following. Stop tele. (5) Acute kidney failure: Code(s): N17.9 - Acute kidney failure, unspecified Status: Acute Assessment and Plan: Given extensive family history, this likely represent autosomal dominant polycystic kidney disease. BUN 131, Cr 21.5 on admission. CTA chest showing PCKD. Patient likely to require renal replacement therapy for the remaining of his life. Tunneled HD catheter placed. Patient was counseled regarding the need for lifelong dialysis and possible referral to for evaluation for renal transplant after medical stabilization. Plan for outpatient dialysis. Care coordination consultation for outpatient hemodialysis set up. (6) Adult polycystic kidney disease: Code(s): Q61.2 - Polycystic kidney, adult type Status: Acute Assessment and Plan: There is establish family history of polycystic kidney disease. Patient will be referred for evaluation for a kidney transplant. (7) Anemia of chronic disease: Code(s): D63.8 - Anemia in other chronic diseases classified elsewhere Status: Acute Assessment and Plan: Hgb 7.5 and stable on repeat. Iron studies noted. B12/folate normal. Most likely anemia related to the chronic kidney disease. Control blood pressure and c
[2022-05-25] MEDS: polyethylene glycoL 3350 17 GM POWD.PACK PO (17:38)
[2022-05-25] MEDS: BISACODYL 10 MG SUPPOSITORY RECTAL (17:39)
[2022-05-25 20:22] LABS: Creatinine, Random Urine 73 mg/dL (20-320); Total Protein/Creatinine Ratio 2342 mg/g creat (25-148)
--- NOTE | 2022-05-25 21:11 | PM.PNNEP ---
Progress Note: A&P Assessment and Plan (1) End stage renal disease: Code(s): N18.6 - End stage renal disease Status: Chronic Assessment and Plan: patient is due for dialysis tomorrow. Will remove fluid as tolerated. (2) Adult polycystic kidney disease: Code(s): Q61.2 - Polycystic kidney, adult type Status: Acute Assessment and Plan: The patient denies any kidney pain. No bloody urine or history of kidney stones. No headaches. (3) Acute diastolic CHF (congestive heart failure): Code(s): I50.31 - Acute diastolic (congestive) heart failure Status: Acute Assessment and Plan: This is from his severe hypertension. Pulmonary edema was present on admission. Chest x-ray has cleared. Lexiscan shows no ischemia or infarct. EF 51%. now euvolemic (4) Acute respiratory failure: Code(s): J96.00 - Acute respiratory failure, unspecified whether with hypoxia or hypercapnia Status: Resolved Assessment and Plan: Improved with fluid removal (5) Anemia of chronic disease: Code(s): D63.8 - Anemia in other chronic diseases classified elsewhere Status: Acute Assessment and Plan: hemoglobin 7.6. This is stable. on epo and iron (6) Hypertensive urgency: Code(s): I16.0 - Hypertensive urgency Status: Acute Assessment and Plan: Blood pressure is doing much better ranging from 120s to 140s Subjective Date/time seen: 05/25/22 21:11 Interval history: Patient is comfortable in bed. awake, but just tired. no sob or cp he says he is eating. Exam Narrative: WDWN in NAD skin no rash head ncat lungs clear bilaterally cor reg no rub abd BS+ nontender and soft ext trace edema. Objective Data Vital Signs Vital Signs: Vital Signs - 24 hr 05/24/22 23:24 05/25/22 00:00 05/25/22 03:49 Temperature 97.9 F Pulse Rate 76 79 81 Respiratory Rate 17 18 Blood Pressure 141/70 H Pulse Oximetry 97 98 Oxygen Delivery BiPAP 05/25/22 04:00 05/25/22 10:01 05/25/22 10:00 Temperature Pulse Rate 79 89 Respiratory Rate Blood Pressure Pulse Oximetry Oxygen Delivery Room Air 05/25/22 13:42 05/25/22 19:54 05/25/22 19:57 Temperature 97.8 F 97.8 F Pulse Rate 90 90 76 Respiratory Rate 18 17 Blood Pressure 128/82 126/80 Pulse Oximetry 99 99 Oxygen Delivery Intake/Output Intake/Output: Intake & Output 05/22/22 05/23/22 05/24/22 05/25/22 23:59 23:59 23:59 23:59 Intake Total 1380 900 120 780 Output Total 2945 300 2850 250 Balance -1565 600 -2730 530 Meds/Results Medications: Active Medications Generic Name Dose Route Start Last Admin Trade Name Freq PRN Reason Stop Dose Admin Acetaminophen 500 mg 05/19/22 13:26 Acetaminophen 500 Mg Tablet PO Q6H PRN Mild Pain (1-3) or Fever Hydrocodone Bitart/Acetaminophen 1 tab 05/19/22 13:26 05/21/22 21:11 Hydrocodone/Acetaminophen (*Crx) 5-325 Mg Tablet PO 1 tab Q4H PRN Administration Pain Rated 4-6 Aspirin 81 mg 05/18/22 09:00 05/25/22 09:59 Aspirin 81 Mg Enteric [facility] Bisacodyl 10 mg 05/26/22 09:00 Bisacodyl 10 Mg Suppository RECTAL 05/27/22 09:01 [facility] Bumetanide 2 mg 05/21/22 09:00 05/25/22 09:59 Bumetanide 1 Mg Tablet PO 2 mg DAILY [facility] Administration Calcium Acetate 667 mg 05/18/22 13:00 05/25/22 17:39 Calcium Acetate 667 Mg Tablet PO 667 mg TID [facility] Administration Diphenhydramine HCl 50 mg 05/19/22 14:31 Diphenhydramine Hcl Cap 25 Mg Capsule PO Q6H PRN Nausea Docusate Sodium 100 mg 05/20/22 21:00 05/25/22 19:57 Docusate Sodium 100 Mg Capsule PO 100 mg Q12HR [facility] Administration Epoetin Iggy-epbx 10,000 units 05/26/22 16:00 Epoetin Iggy-Epbx 10,000 Units/Ml Vial IV PUSH MoWeFr@1600 [facility] Ferrous Gluconate 324 mg 05/21/22 17:00 05/25/22 17
[2022-05-25] MEDS: HYDROcodone/acetaminophen (*CRX) 5-325 MG TABLET 1 TAB PO (21:50)
[2022-05-25 23:38] LABS: ANCA Screen Negative (Negative)
[2022-05-26] VITALS (19 sets, daily range): BP systolic 118–180; BP diastolic 70–108; PULSE 75–97; RESP 18–20; TEMP 36.2–37; O2SAT 97–99
[2022-05-26] MEDS: HEPARIN SODIUM 5,000 UNITS/ML VIAL 5000 UNITS SUB-Q ×2 (06:27→20:24)
[2022-05-26 08:07] LABS: Hematocrit 26.6 % (42.0-52.0); Hemoglobin 8.1 g/dL (14.0-18.0); Mean Corpuscular HGB Conc 30.5 g/dl (32-36); Mean Corpuscular Hemoglobin 29.2 pg (26-34); Mean Platelet Volume 10.2 fl (7.4-10.4); Platelet Count Result 225 k/mm3 (150-375); Red Blood Count 2.77 M/mm3 (4.6-6.20); Red Cell Distribution Width 15.2 % (11.5-14.5); White Blood Count 4.6 K/mm3 (4.5-10.0)
[2022-05-26 08:20] LABS: Anion Gap 7 mmol/L (8-16); Blood Urea Nitrogen 72 mg/dL (9-20); Calcium 5.9 mg/dL (8.4-10.2); Carbon Dioxide 27 mmol/L (22-30); Chloride 102 mmol/L (98-107); Glucose 83 mg/dL (65-110); Phosphorus 7.5 mg/dL (2.5-4.5); Potassium 4.8 mmol/L (3.4-5.0); Sodium 136 mmol/L (137-145)
[2022-05-26 08:24] LABS: Anion Gap 9 mmol/L (8-16); Blood Urea Nitrogen 72 mg/dL (9-20); Calcium 5.9 mg/dL (8.4-10.2); Carbon Dioxide 26 mmol/L (22-30); Chloride 101 mmol/L (98-107); Glucose 83 mg/dL (65-110); Potassium 4.8 mmol/L (3.4-5.0); Sodium 136 mmol/L (137-145)
[2022-05-26 08:35] LABS: Estimated CRCL calculation 5 ml/min; Estimated Glomerular Filt Rate 4
[2022-05-26] MEDS: FERROUS GLUCONATE 324 MG TABLET PO ×2 (08:44→19:01)
[2022-05-26] MEDS: BUMETANIDE 1 MG TABLET 2 MG PO (08:45)
[2022-05-26] MEDS: CALCIUM ACETATE 667 MG TABLET PO ×3 (08:45→19:01)
[2022-05-26] MEDS: DOCUSATE SODIUM 100 MG CAPSULE PO ×2 (08:45→20:24)
[2022-05-26] MEDS: ASPIRIN 81 MG ENTERIC TABLET PO (08:46)
--- NOTE | 2022-05-26 09:15 | PC.NURSE ---
to ultrasound per stretcher
--- NOTE | 2022-05-26 09:29 | PC.NURSE ---
xray cancelled. patient back in room
--- NOTE | 2022-05-26 09:52 | PC.NURSE ---
patient back to room from [facility]
[2022-05-26] MEDS: METOPROLOL TARTRATE 25 MG TABLET 75 MG PO ×2 (10:13→20:23)
[2022-05-26] MEDS: IRON SUCROSE COMPLEX 200 MG in SODIUM CHLORIDE 0.9% IV 50 ML 60 MG IVPB (10:14)
--- NOTE | 2022-05-26 12:15 | PM.PNNEP ---
Progress Note: A&P Assessment and Plan (1) End stage renal disease: Code(s): N18.6 - End stage renal disease Status: Chronic Assessment and Plan: patient is due for dialysis today. He is undergoing full dialysis treatments now. BUN is under good control. Dialysis BUN of 72 is good. Creatinine is high because of high muscle mass. (2) Adult polycystic kidney disease: Code(s): Q61.2 - Polycystic kidney, adult type Status: Acute Assessment and Plan: The patient denies any kidney pain. No bloody urine or history of kidney stones. No headaches. (3) Acute diastolic CHF (congestive heart failure): Code(s): I50.31 - Acute diastolic (congestive) heart failure Status: Acute Assessment and Plan: This is from his severe hypertension. Pulmonary edema was present on admission. Chest x-ray has cleared. Lexiscan shows no ischemia or infarct. EF 51%. now euvolemic (4) Acute respiratory failure: Code(s): J96.00 - Acute respiratory failure, unspecified whether with hypoxia or hypercapnia Status: Resolved Assessment and Plan: Improved with fluid removal (5) Anemia of chronic disease: Code(s): D63.8 - Anemia in other chronic diseases classified elsewhere Status: Acute Assessment and Plan: hemoglobin 8.1. This is stable. on epo and iron (6) Hypertensive urgency: Code(s): I16.0 - Hypertensive urgency Status: Acute Assessment and Plan: Blood pressure is doing much better ranging from 120s to 140s Subjective Date/time seen: 05/26/22 12:15 Interval history: Patient is comfortable in bed. More interactive today. He is going to try to get up and walk. Exam Narrative: WDWN in NAD skin no rash head ncat lungs clear to auscultation cor reg no rub or gallop abd BS+ nontender and soft ext trace edema. Objective Data Vital Signs Vital Signs: Vital Signs - 24 hr 05/25/22 13:42 05/25/22 19:54 05/25/22 19:57 Temperature 97.8 F 97.8 F Pulse Rate 90 90 76 Respiratory Rate 18 17 Blood Pressure 128/82 126/80 Pulse Oximetry 99 99 Oxygen Delivery 05/25/22 20:00 05/26/22 03:45 05/26/22 10:13 Temperature 97.1 F L Pulse Rate 80 80 Respiratory Rate 20 Blood Pressure 141/97 H Pulse Oximetry 99 Oxygen Delivery Room Air Intake/Output Intake/Output: Intake & Output 05/23/22 05/24/22 05/25/22 05/26/22 23:59 23:59 23:59 23:59 Intake Total 900 120 780 514 Output Total 300 2850 250 300 Balance 600 -2730 530 214 Meds/Results Medications: Active Medications Generic Name Dose Route Start Last Admin Trade Name Freq PRN Reason Stop Dose Admin Acetaminophen 500 mg 05/19/22 13:26 Acetaminophen 500 Mg Tablet PO Q6H PRN Mild Pain (1-3) or Fever Hydrocodone Bitart/Acetaminophen 1 tab 05/19/22 13:26 05/25/22 21:50 Hydrocodone/Acetaminophen (*Crx) 5-325 Mg Tablet PO 1 tab Q4H PRN Administration Pain Rated 4-6 Aspirin 81 mg 05/18/22 09:00 05/26/22 08:46 Aspirin 81 Mg Enteric Tablet PO [address] [facility] [place] [facility] Bisacodyl 10 mg 05/26/22 09:00 Bisacodyl 10 Mg Suppository RECTAL 05/27/22 09:[address] [facility] [place] Bumetanide 2 mg 05/21/22 09:00 05/26/22 08:45 Bumetanide 1 Mg Tablet PO 2 mg DAILY [facility] Administration Calcium Acetate 667 mg 05/18/22 13:00 05/26/22 08:45 Calcium Acetate 667 Mg Tablet PO 667 mg TID [facility] Administration Diphenhydramine HCl 50 mg 05/19/22 14:31 Diphenhydramine Hcl Cap 25 Mg Capsule PO Q6H PRN Nausea Docusate Sodium 100 mg 05/20/22 21:00 05/26/22 08:45 Docusate Sodium 100 Mg Capsule PO 100 mg Q12HR [facility] Administration Epoetin Iggy-epbx 10,000 units 05/26/22 16:00 Epoetin Iggy-Epbx 10,000 Units/Ml Vial IV PUSH MoWeFr@1600 [facility] Ferrous Gluconate 324 mg 05/21/22 17:00 05/26/22 08:44 Ferrous Gluconate 324 Mg Table
--- NOTE | 2022-05-26 14:55 | PC.NURSE ---
to ICU 12 for dialysis per bed
--- NOTE | 2022-05-26 17:05 | PM.IMPN ---
Progress Note: A&P Assessment and Plan (1) Acute respiratory failure: Code(s): J96.00 - Acute respiratory failure, unspecified whether with hypoxia or hypercapnia Status: Resolved Assessment and Plan: On admission, patient presents to emergency room with complaints of SOB and had increased respiratory rate. His condition did worsen requiring BiPAP therapy. ABG 7.35/28/230 on BiPAP. CTA chest negative for PE but does show moderate pulmonary edema. it was felt that the respiratory failure was related to pulmonary edema. Patient respiratory status improved with IV Bumex and dialysis. He was able to be weaned to room air. Repeat CXR showing CMG and clear lung fletcher. Respiratory failure resolved. (2) Hypertensive urgency: Code(s): I16.0 - Hypertensive urgency Status: Acute Assessment and Plan: Blood pressure was 194/128 on admission. [place] related to his renal failure and polycystic kidney disease. Medications adjusted. Currently on Hydralazine, Metoprolol, Entresto and Imdur. Also on Bumex as well. Patient's blood pressure was reviewed on 05/26 Blood pressure improved running systolic 130-150 Will continue current medications. Continue to monitor (3) Heart failure: Code(s): I50.9 - Heart failure, unspecified Status: Acute Assessment and Plan: Chest x-ray showing pulmonary edema on admission; confirmed by CTA chest. BNP 13K. Echo shows mild LV enlargement with severe eccentric hypertrophy, moderate global hypokinesis, EF is 40-45% with myocardium showing an unusual echodense texture. He has mild valvular disease, mild pulmonary hypertension and severe grade 3 diastolic dysfunction. [place] patient has acute systolic and diastolic CHF related to uncontrolled HTN and renal failure. Bumex given x 1. Patient started on hemodialysis. Continue current medications including Entresto and Metoprolol. Patient has been counseled about heart failure, cardiomyopathy and hypertension. Patient will certainly need Cardiology follow-up as an outpatient and repeat echocardiogram in 6-8 weeks. Use HD to control fluid status. (4) Acute kidney failure: Code(s): N17.9 - Acute kidney failure, unspecified Status: Acute Assessment and Plan: Given extensive family history, this likely represent autosomal dominant polycystic kidney disease. BUN 131, Cr 21.5 on admission. CTA chest showing PCKD. Patient likely to require renal replacement therapy for the remaining of his life. Tunneled HD catheter placed. Patient was counseled regarding the need for lifelong dialysis and possible referral to for evaluation for renal transplant after medical stabilization. Care coordination consultation to set up outpatient hemodialysis; dialysis arranged through [facility] for - to start on 05/29/22. (5) Elevated troponin: Code(s): R77.8 - Other specified abnormalities of plasma proteins Status: Acute Assessment and Plan: Trop 0.125 on admission. Echo as mentioned above but no focal wall motion abnormalities. EKG reviewed showing NSR, LVH, LAE and inverted T waves in the high lateral leads (no old EKG to compare). [place] elevated Trop related to CHF and/or poor renal clearance and/or from elevated TCK. Continue metoprolol, ASA. Lipid profile noted. Lexiscan stress results noted. Cardiology following. (6) Adult polycystic kidney disease: Code(s): Q61.2 - Polycystic kidney, adult type Status: Acute Assessment and Plan: There is establish family history of polycystic kidney disease. Patient will be referred for evaluation for a kidney transplant. (7) Anemia of chronic disease: Code(s): D63.8 - Anemia in other chronic diseases classified elsewhere Status: Acute Assessment and Plan: Hgb 7.5 and stable on repeat. Iron studies noted. B12/folate normal. Most likely anemia related to the chronic kidney disease. Continue erythropoiesis stimulating agen
[2022-05-26] MEDS: polyethylene glycoL 3350 17 GM POWD.PACK PO (18:59)
[2022-05-26] MEDS: BISACODYL 10 MG SUPPOSITORY RECTAL (19:00)
[2022-05-26] MEDS: ISOSORBIDE MONONITRATE 30 MG TAB.ER.24H PO (19:01)
[2022-05-26] MEDS: hydrALAZINE HCL 50 MG TABLET PO (19:01)
[2022-05-26 19:40] LABS: Cryoglobulin, QL Negative (Negative)
--- NOTE | 2022-05-26 19:48 | PC.NURSE ---
patient returning to room from dialysis at 1855. 2 L removed per dialysis
[2022-05-26] MEDS: SACUBITRIL/VALSARTAN 12-13 MG TABLET 1 TAB PO (20:24)
[2022-05-27 06:00] VITALS: BP 134/71; PULSE 96; RESP 18; TEMP 36.8; O2SAT 98
[2022-05-27 06:32] LABS: Hematocrit 25.8 % (42.0-52.0); Hemoglobin 7.8 g/dL (14.0-18.0); Mean Corpuscular HGB Conc 30.2 g/dl (32-36); Mean Corpuscular Hemoglobin 29.2 pg (26-34); Mean Corpuscular Volume 96.6 fl (80-100); Mean Platelet Volume 9.9 fl (7.4-10.4); Platelet Count Result 204 k/mm3 (150-375); Red Blood Count 2.67 M/mm3 (4.6-6.20); Red Cell Distribution Width 15.5 % (11.5-14.5); White Blood Count 4.6 K/mm3 (4.5-10.0)
[2022-05-27 06:40] LABS: Anion Gap 4 mmol/L (8-16); Blood Urea Nitrogen 65 mg/dL (9-20); Carbon Dioxide 32 mmol/L (22-30); Chloride 98 mmol/L (98-107); Glucose 89 mg/dL (65-110); Potassium 4.9 mmol/L (3.4-5.0); Sodium 134 mmol/L (137-145)
[2022-05-27 06:45] LABS: Estimated CRCL calculation 6 ml/min; Estimated Glomerular Filt Rate 5
--- NOTE | 2022-05-27 08:04 | PM.PNNEP ---
Progress Note: A&P Assessment and Plan (1) End stage renal disease: Code(s): N18.6 - End stage renal disease Status: Chronic Assessment and Plan: he had dialysis yesterday. He will be done again on Sunday morning at [facility]. (2) Adult polycystic kidney disease: Code(s): Q61.2 - Polycystic kidney, adult type Status: Acute Assessment and Plan: The patient denies any kidney pain. No bloody urine or history of kidney stones. No headaches. No dysuria (3) Acute diastolic CHF (congestive heart failure): Code(s): I50.31 - Acute diastolic (congestive) heart failure Status: Acute Assessment and Plan: the patient is compensated now. Fluid removed by dialysis. He still has diastolic dysfunction. He should still watch his salt and fluid intake and not gain much between treatments hopefully. (4) Acute respiratory failure: Code(s): J96.00 - Acute respiratory failure, unspecified whether with hypoxia or hypercapnia Status: Resolved Assessment and Plan: Improved with fluid removal (5) Anemia of chronic disease: Code(s): D63.8 - Anemia in other chronic diseases classified elsewhere Status: Acute Assessment and Plan: hemoglobin 8.1. This is stable. on epo and iron . Today is his 5th dose of iron 200mg (6) Hypertensive urgency: Code(s): I16.0 - Hypertensive urgency Status: Acute Assessment and Plan: Blood pressure is doing much better ranging from 120s to 140s Subjective Date/time seen: 05/27/22 08:04 Interval history: Patient is comfortable in bed. he walked in the halls yesterday. He had his dialysis yesterday. He is eager for discharge. Exam Narrative: WDWN in NAD skin no rash or subcu nodules head ncat lungs clear to auscultation cor reg no rub or gallop abd BS+ nontender and soft ext trace edema. Objective Data Vital Signs Vital Signs: Vital Signs - 24 hr 05/26/22 10:13 05/26/22 14:00 05/26/22 15:08 Temperature 97.1 F L 98.0 F Pulse Rate 80 77 75 Respiratory Rate 20 18 Blood Pressure 118/76 135/80 Pulse Oximetry 98 Oxygen Delivery Fraction of Inspired Oxygen 05/26/22 15:30 05/26/22 15:40 05/26/22 16:00 Temperature Pulse Rate 75 79 Respiratory Rate Blood Pressure 141/85 H 130/83 142/97 H Pulse Oximetry Oxygen Delivery Fraction of Inspired Oxygen 05/26/22 16:20 05/26/22 16:40 05/26/22 17:00 Temperature Pulse Rate 78 81 85 Respiratory Rate Blood Pressure 153/88 H 159/105 H 159/98 H Pulse Oximetry Oxygen Delivery Fraction of Inspired Oxygen 05/26/22 17:20 05/26/22 17:40 05/26/22 18:00 Temperature Pulse Rate 76 83 81 Respiratory Rate Blood Pressure 151/102 H 155/99 H 169/107 H Pulse Oximetry Oxygen Delivery Fraction of Inspired Oxygen 05/26/22 18:20 05/26/22 18:30 05/26/22 18:38 Temperature 98.4 F Pulse Rate 82 79 80 Respiratory Rate 18 Blood Pressure 178/108 H 180/93 H 168/90 H Pulse Oximetry Oxygen Delivery Fraction of Inspired Oxygen 05/26/22 20:00 05/26/22 22:00 05/27/22 06:00 Temperature 98.4 F 98.2 F Pulse Rate 80 97 96 Respiratory Rate 18 19 18 Blood Pressure 133/70 134/71 Pulse Oximetry 98 97 98 Oxygen Delivery Room Air Fraction of Inspired Oxygen 30 Intake/Output Intake/Output: Intake & Output 05/24/22 05/25/22 05/26/22 05/27/22 23:59 23:59 23:59 23:59 Intake Total 120 780 714 Output Total 2850 250 2300 200 Balance -2730 530 -1586 -200 Meds/Results Medications: Active Medications Generic Name Dose Route Start Last Admin Trade Name Waleq PRN Reason Stop Dose Admin Acetaminophen 500 mg 05/19/22 13:26 Acetaminophen 500 Mg Tablet PO Q6H PRN Mild Pain (1-3) or Fever Hydrocodone Bitart/Acetaminophen 1 tab 05/19/22 13:26 05/25/22 21:50 Hydrocodone/Acetaminophen (*Crx) 5-325 Mg Tablet PO 1
[2022-05-27] MEDS: CALCIUM ACETATE 667 MG TABLET PO ×3 (09:34→17:39)
[2022-05-27] MEDS: IRON SUCROSE COMPLEX 200 MG in SODIUM CHLORIDE 0.9% IV 50 ML 120 MG IVPB (09:34)
[2022-05-27 09:35] VITALS: PULSE 96
[2022-05-27] MEDS: polyethylene glycoL 3350 17 GM POWD.PACK PO (09:35)
[2022-05-27] MEDS: FERROUS GLUCONATE 324 MG TABLET PO ×2 (09:35→17:39)
[2022-05-27] MEDS: METOPROLOL TARTRATE 25 MG TABLET 75 MG PO ×2 (09:35→21:40)
[2022-05-27] MEDS: BUMETANIDE 1 MG TABLET 2 MG PO (09:35)
[2022-05-27] MEDS: BISACODYL 10 MG SUPPOSITORY RECTAL (09:35)
[2022-05-27] MEDS: ASPIRIN 81 MG ENTERIC TABLET PO (09:35)
[2022-05-27] MEDS: SACUBITRIL/VALSARTAN 12-13 MG TABLET 1 TAB PO ×2 (09:35→21:40)
[2022-05-27] MEDS: DOCUSATE SODIUM 100 MG CAPSULE PO ×2 (09:35→21:40)
[2022-05-27] MEDS: hydrALAZINE HCL 50 MG TABLET PO ×3 (09:36→17:39)
[2022-05-27 14:00] VITALS: BP 106/61; PULSE 80; RESP 16; TEMP 36.6; O2SAT 100
--- NOTE | 2022-05-27 14:03 | PM.DS ---
DS: Admitting Diagnosis Discharge Date 05/27/22 Admitting Diagnosis shortness of breath DS: Discharge Diagnosis Discharge Diagnosis (1) Acute respiratory failure: Code(s): J96.00 - Acute respiratory failure, unspecified whether with hypoxia or hypercapnia Status: Resolved (2) Hypertensive urgency: Code(s): I16.0 - Hypertensive urgency Status: Acute (3) Heart failure: Code(s): I50.9 - Heart failure, unspecified Status: Acute (4) Acute kidney failure: Code(s): N17.9 - Acute kidney failure, unspecified Status: Acute (5) Elevated troponin: Code(s): R77.8 - Other specified abnormalities of plasma proteins Status: Acute (6) Adult polycystic kidney disease: Code(s): Q61.2 - Polycystic kidney, adult type Status: Acute (7) Anemia of chronic disease: Code(s): D63.8 - Anemia in other chronic diseases classified elsewhere Status: Acute (8) Elevated CPK: Code(s): R74.8 - Abnormal levels of other serum enzymes Status: Acute (9) Goiter: Code(s): E04.9 - Nontoxic goiter, unspecified Status: Acute (10) Hypocalcemia: Code(s): E83.51 - Hypocalcemia Status: Acute (11) Confusion: Code(s): R41.0 - Disorientation, unspecified Status: Acute DS: Summary Hospital Course Reason for hospitalization: 56yo male presents with complaints of SOB and found to have respiratory failure, elevated BP, fluid overload and CORINNA. please see H&P for details Hospital Course: On admission, patient presents to emergency room with complaints of SOB and had increased respiratory rate. His condition did worsen requiring BiPAP therapy.? ABG 7.35/28/230 on BiPAP.? CTA chest negative for PE but does show moderate pulmonary edema. it was felt that the respiratory failure was related to pulmonary edema. Patient respiratory status improved with IV Bumex and ultimately dialysis. He was able to be weaned to room air. Repeat CXR showing CMG and clear lung fletcher. Respiratory failure resolved. Blood pressure was 194/128 on admission. [place] related to his renal failure and polycystic kidney disease. Medications were adjusted and now on Hydralazine, Metoprolol, Entresto and Imdur. Also on Bumex as well. Patient's blood pressure became better controlled. Chest x-ray showing pulmonary edema on admission; confirmed by CTA chest. BNP 13K. Echo shows mild LV enlargement with severe eccentric hypertrophy, moderate global hypokinesis, EF is 40-45% with myocardium showing an unusual echodense texture.? He has mild valvular disease, mild pulmonary hypertension and severe grade 3 diastolic dysfunction. [place] patient has?acute systolic and diastolic CHF?related to uncontrolled HTN and renal failure. Bumex given x 1. Patient started on hemodialysis.? Entresto and Metoprolol started. Patient was counseled about heart failure, cardiomyopathy and hypertension. Patient had acute renal failure on presentation. BUN 131, Cr 21.5 on admission. CTA chest showing PCKD. 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 Patient likely to require renal replacement therapy for the remaining of his life.? Tunneled HD catheter placed. Patient was counseled regarding the need for lifelong dialysis and possible referral to for evaluation for renal transplant after medical stabilization. Care coordination consultation and outpatient hemodialysis was set up; dialysis arranged through [facility] for to start on 05/29/22. Trop 0.125 on admission. Echo showing no focal wall motion abnormalities. EKG reviewed showing NSR, LVH, LAE and inverted T waves in the high lateral leads (no old EKG to compare). Lexiscan stress showing no fixed or reversible ischemia. [place] elevated Trop related to CHF and/or poor renal clearance and/or from elevated TCK. Hgb 7.5 and stable on repeat. 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
[2022-05-27] MEDS: ISOSORBIDE MONONITRATE 30 MG TAB.ER.24H PO (14:31)
[2022-05-27 16:43] VITALS: BP 111/76; PULSE 85; O2SAT 100
[2022-05-27] MEDS: HEPARIN SODIUM 5,000 UNITS/ML VIAL 5000 UNITS SUB-Q (17:39)
--- NOTE | 2022-05-27 19:22 | PC.NURSE ---
friend at bedside. He states that he can not be with patient tonight and that he has concerns about patient being alone at home. Friend is willing to stay with patient tomorrow and for a few days if needed after tonight.
[2022-05-27 21:40] VITALS: PULSE 95
[2022-05-27 22:00] VITALS: BP 125/71; PULSE 97; RESP 18; TEMP 37.3; O2SAT 98
[2022-05-28 05:30] VITALS: BP 127/80; PULSE 80; RESP 18; TEMP 36.3; O2SAT 97
[2022-05-28 07:09] LABS: Hematocrit 26.5 % (42.0-52.0); Mean Corpuscular HGB Conc 30.2 g/dl (32-36); Mean Corpuscular Hemoglobin 29.3 pg (26-34); Mean Corpuscular Volume 97.1 fl (80-100); Mean Platelet Volume 10.1 fl (7.4-10.4); Platelet Count Result 227 k/mm3 (150-375); Red Blood Count 2.73 M/mm3 (4.6-6.20); Red Cell Distribution Width 15.8 % (11.5-14.5); White Blood Count 4.4 K/mm3 (4.5-10.0)
[2022-05-28 07:25] LABS: Anion Gap 7 mmol/L (8-16); Blood Urea Nitrogen 80 mg/dL (9-20); Calcium 6.2 mg/dL (8.4-10.2); Carbon Dioxide 26 mmol/L (22-30); Chloride 99 mmol/L (98-107); Estimated CRCL calculation 5 ml/min; Estimated Glomerular Filt Rate 4; Glucose 88 mg/dL (65-110); Potassium 4.8 mmol/L (3.4-5.0); Sodium 132 mmol/L (137-145)
[2022-05-28] MEDS: SACUBITRIL/VALSARTAN 12-13 MG TABLET 1 TAB PO (10:44)
[2022-05-28] MEDS: ISOSORBIDE MONONITRATE 30 MG TAB.ER.24H PO (10:44)
[2022-05-28] MEDS: FERROUS GLUCONATE 324 MG TABLET PO (10:45)
[2022-05-28] MEDS: hydrALAZINE HCL 50 MG TABLET PO (10:45)
[2022-05-28] MEDS: ASPIRIN 81 MG ENTERIC TABLET PO (10:45)
[2022-05-28] MEDS: BUMETANIDE 1 MG TABLET 2 MG PO (10:45)
[2022-05-28] MEDS: CALCIUM ACETATE 667 MG TABLET PO (10:45)
--- NOTE | 2022-05-28 11:29 | PM.PNNEP ---
Progress Note: A&P Assessment and Plan (1) End stage renal disease: Code(s): N18.6 - End stage renal disease Status: Chronic Assessment and Plan: he had dialysis Sunday He will be done again tomorrow morning here if here or if not at [facility]. (2) Adult polycystic kidney disease: Code(s): Q61.2 - Polycystic kidney, adult type Status: Acute Assessment and Plan: The patient denies any kidney pain. No bloody urine or history of kidney stones. No headaches. No dysuria (3) Acute diastolic CHF (congestive heart failure): Code(s): I50.31 - Acute diastolic (congestive) heart failure Status: Acute Assessment and Plan: the patient is compensated now. he understands to avoid salt and salty foods as well as not drink a lot of fluid between treatments. (4) Acute respiratory failure: Code(s): J96.00 - Acute respiratory failure, unspecified whether with hypoxia or hypercapnia Status: Resolved Assessment and Plan: Improved with fluid removal (5) Anemia of chronic disease: Code(s): D63.8 - Anemia in other chronic diseases classified elsewhere Status: Acute Assessment and Plan: hemoglobin 8.1. This is stable. on epo and iron . Today is his 5th dose of iron 200mg (6) Hypertensive urgency: Code(s): I16.0 - Hypertensive urgency Status: Acute Assessment and Plan: Blood pressure is doing much better ranging from 120s to 140s Subjective Date/time seen: 05/28/22 11:29 Interval history: patient is up and around in the room. He wants to go home. He is getting himself dressed. Exam Narrative: WDWN in NAD skin no rash or subcu nodules head ncat lungs clear cor reg no rub abd BS+ nontender and soft ext trace edema. Objective Data Vital Signs Vital Signs: Vital Signs - 24 hr 05/27/22 14:00 05/27/22 16:43 05/27/22 21:40 Temperature 98 F Pulse Rate 80 85 95 Respiratory Rate 16 Blood Pressure 106/61 111/76 Pulse Oximetry 100 100 Oxygen Delivery 05/27/22 22:00 05/27/22 20:00 05/28/22 05:30 Temperature 99.1 F 97.4 F L Pulse Rate 97 80 Respiratory Rate 18 18 Blood Pressure 125/71 127/80 Pulse Oximetry 98 97 Oxygen Delivery Room Air Intake/Output Intake/Output: Intake & Output 05/25/22 05/26/22 05/27/22 05/28/22 23:59 23:59 23:59 23:59 Intake Total 780 714 880 Output Total 250 2300 400 Balance 530 -6946 480 Meds/Results Medications: Active Medications Generic Name Dose Route Start Last Admin Trade Name Freq PRN Reason Stop Dose Admin Acetaminophen 500 mg 05/19/22 13:26 Acetaminophen 500 Mg Tablet PO Q6H PRN Mild Pain (1-3) or Fever Hydrocodone Bitart/Acetaminophen 1 tab 05/19/22 13:26 05/25/22 21:50 Hydrocodone/Acetaminophen (*Crx) 5-325 Mg Tablet PO 1 tab Q4H PRN Administration Pain Rated 4-6 Aspirin 81 mg 05/18/22 09:00 05/28/22 10:45 Aspirin 81 Mg Enteric Tablet PO 81 mg QAM [facility] Administration Bumetanide 2 mg 05/21/22 09:00 05/28/22 10:45 Bumetanide 1 Mg Tablet PO 2 mg DAILY [facility] Administration Calcium Acetate 667 mg 05/18/22 13:00 05/28/22 10:45 Calcium Acetate 667 Mg Tablet PO 667 mg TID [facility] Administration Diphenhydramine HCl 50 mg 05/19/22 14:31 Diphenhydramine Hcl Cap 25 Mg Capsule PO Q6H PRN Nausea Docusate Sodium 100 mg 05/20/22 21:00 05/27/22 21:40 Docusate Sodium 100 Mg Capsule PO 100 mg Q12HR [facility] Administration Epoetin Iggy-epbx 10,000 units 05/26/22 16:00 05/27/22 10:23 Epoetin Iggy-Epbx 10,000 Units/Ml Vial IV PUSH Not Given [id number] [facility] Ferrous Gluconate 324 mg 05/21/22 17:00 05/28/22 10:45 Ferrous Gluconate 324 Mg Tablet PO 324 mg BIDWM [facility] Administration Heparin Sodium (Porcine) 5,000 units 05/17/22 22:00 05/28/22 05:27 Heparin Sodium 5,000 Units/Ml Vial SUB-Q Not Given Q8HR [facility]
--- NOTE | 2022-05-28 13:35 | PM.DS ---
DS: Admitting Diagnosis Discharge Date May 28, 2022 Admitting Diagnosis Polycystic kidney disease. Hypertensive urgency Respiratory failure DS: Discharge Diagnosis Discharge Diagnosis (1) Acute respiratory failure: Code(s): J96.00 - Acute respiratory failure, unspecified whether with hypoxia or hypercapnia Status: Resolved (2) Hypertensive urgency: Code(s): I16.0 - Hypertensive urgency Status: Acute (3) Heart failure: Code(s): I50.9 - Heart failure, unspecified Status: Acute (4) Acute kidney failure: Code(s): N17.9 - Acute kidney failure, unspecified Status: Acute (5) Elevated troponin: Code(s): R77.8 - Other specified abnormalities of plasma proteins Status: Acute (6) Adult polycystic kidney disease: Code(s): Q61.2 - Polycystic kidney, adult type Status: Acute (7) Anemia of chronic disease: Code(s): D63.8 - Anemia in other chronic diseases classified elsewhere Status: Acute (8) Elevated CPK: Code(s): R74.8 - Abnormal levels of other serum enzymes Status: Acute (9) Goiter: Code(s): E04.9 - Nontoxic goiter, unspecified Status: Acute (10) Hypocalcemia: Code(s): E83.51 - Hypocalcemia Status: Acute (11) Confusion: Code(s): R41.0 - Disorientation, unspecified Status: Acute DS: Summary Hospital Course Hospital Course: Hospital Course: On admission, patient presents to emergency room with complaints of SOB and had increased respiratory rate. His condition did worsen requiring BiPAP therapy.? ABG 7.35/28/230 on BiPAP.? CTA chest negative for PE but does show moderate pulmonary edema. it was felt that the respiratory failure was related to pulmonary edema. Patient respiratory status improved with IV Bumex and ultimately dialysis. He was able to be weaned to room air. Repeat CXR showing CMG and clear lung fletcher. Respiratory failure resolved. Blood pressure was 194/128 on admission. Tiffin related to his renal failure and polycystic kidney disease. Medications were adjusted and now on Hydralazine, Metoprolol, Entresto and Imdur. Also on Bumex as well. Patient's blood pressure became better controlled. Chest x-ray showing pulmonary edema on admission; confirmed by CTA chest. BNP 13K. Echo shows mild LV enlargement with severe eccentric hypertrophy, moderate global hypokinesis, EF is 40-45% with myocardium showing an unusual echodense texture.? He has mild valvular disease, mild pulmonary hypertension and severe grade 3 diastolic dysfunction. Tiffin patient has?acute systolic and diastolic CHF?related to uncontrolled HTN and renal failure. Bumex given x 1. Patient started on hemodialysis.? Entresto and Metoprolol started. Patient was counseled about heart failure, cardiomyopathy and hypertension. Patient had acute renal failure on presentation. BUN 131, Cr 21.5 on admission. CTA chest showing PCKD. 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 Patient likely to require renal replacement therapy for the remaining of his life.? Tunneled HD catheter placed.? Patient was counseled regarding the need for lifelong dialysis and possible referral to for evaluation for renal transplant after medical stabilization. Care coordination consultation and outpatient hemodialysis was set up; dialysis arranged through [facility] for -W-F to start on 05/29/22. Trop 0.125 on admission. Echo showing no focal wall motion abnormalities. EKG reviewed showing NSR, LVH, LAE and inverted T waves in the high lateral leads (no old EKG to compare). Lexiscan stress showing no fixed or reversible ischemia. Tiffin elevated Trop related to CHF and/or poor renal clearance and/or from elevated TCK. Hgb 7.5 and stable on repeat. Anemia workup completed and most likely anemia related to the chronic kidney disease.?TSH is 1.8. CTA chest showing intrathoracic goiter with rightward displacement of the trac
[2022-05-29 06:43] LABS: Angiotensin Converting Enzyme 34 U/L (9-67)
--- NOTE | 2022-05-31 09:59 | PC.NURSE ---
Cytology thyroid- benign. Consistent with benign follicular nodule. Dr. Johnna melchor.
--- NOTE | 2022-06-01 11:26 | PC.NURSE ---
Spoke with Dr. Oropeza regarding findings of thyroid biopsy. Called pt. with findings- benign.
== END 2022-05-28 13:25 | disposition home or self-care (01) | DRG 194 ==
LOC: ANHED 07:27 → ANHIMU 20:27 → ANH3MEDSUR 05-26 11:45 → ANHIMU 05-30 14:22
PROVIDERS: Emergency Medicine; Internal Medicine; Internal Medicine Nephrology; Nurse Practitioner; Surgery; Admitting Provider Family Medicine; Emergency Provider Emergency Medicine; Visit Provider Internal Medicine
PROC: 0JH63XZ Insertion of Tunneled Vascular Access Device into Chest Subcutaneous Tissue and Fascia, Percutaneous Approach (ICD-10-PCS; CPT 36908; principal; 2022-05-19 12:00)
DX: I13.2 Hypertensive heart and chronic kidney disease with heart failure and with stage 5 chronic kidney disease, or end stage renal disease (principal); J96.00 Acute respiratory failure, unspecified whether with hypoxia or hypercapnia; N17.9 Acute kidney failure, unspecified; E87.20 Acidosis, unspecified; I50.41 Acute combined systolic (congestive) and diastolic (congestive) heart failure; I16.0 Hypertensive urgency; E04.9 Nontoxic goiter, unspecified; E83.51 Hypocalcemia; R41.0 Disorientation, unspecified; Z20.822 Contact with and (suspected) exposure to COVID-19; Q61.2 Polycystic kidney, adult type; N18.6 End stage renal disease; D63.1 Anemia in chronic kidney disease; I43 Cardiomyopathy in diseases classified elsewhere
CPT/HCPCS: 10005; 36415; 36600; 71045; 71046; 71275; 76536; 76775; 77001; 78452; 80048; 80053; 80061; 80069; 80076; 81001; 82164; 82306; 82375; 82436; 82550; 82570; 82595; 82607; 82728; 82746; 82805; 83036; 83050; 83520; 83540; 83550; 83735; 83880; 83930; 83935; 83970; 84100; 84133; 84155; 84156; 84165; 84166; 84300; 84443; 84484; 85025; 85027; 85380; 85610; 85652; 85730; 85999; 86036; 86038; 86060; 86140; 86160; 86162; 86215; 86225; 86235; 86334; 86335; 86703; 86704; 86705; 86706; 86803; 86850; 86900; 86901; 87086; 87340; 87637; 88173; 88305; 93005; 93017; 94002; 94003; 99285; A9270; A9502; C1750; C8929; G0257; G0432; J0360; J0610; J0690; J1644; J1756; J2405; J2704; J2785; J3010; J7030; J7040; Q5105; Q9957; Q9967

== ENCOUNTER 2022-09-26 10:23 | Emergency (ER) | payer MEDICARE, MEDICAID, SELFPAY ==
--- NOTE | ~2022-09-26 | XR_ITS ---
EXAMINATION: XR ankle RT min 3V INDICATION: Right ankle pain TECHNIQUE: Four views of the right ankle are obtained. COMPARISON: None available FINDINGS: There is soft tissue swelling of ankle and foot. Bone alignment is normal. There is subtle heterotopic ossification projecting medial to the calcaneus. IMPRESSION: 1. Subtle heterotopic ossification medial to the calcaneus which could reflect avulsion injury. Reviewed, dictated and finalized at location L.
[2022-09-26 10:28] VITALS: BP 132/81; PULSE 98; RESP 16; TEMP 36.5; O2SAT 100
--- NOTE | 2022-09-26 10:49 | ED.LOWEXIN ---
HPI - Extremity Injury (Lower) General Chief Complaint: Extremity Injury, Lower Stated Complaint: Right ankle pain Time Seen by Provider: 09/26/22 10:41 History of Present Illness HPI Narrative: Patient is a 56-year-old male with a history of end-stage renal disease on Sunday hemodialysis here for evaluation of right ankle pain after a fall yesterday. Patient states that he was getting up from seated on the toilet when he lost his footing, causing him to land with the ankle in eversion. He denies any head injury or loss of consciousness. Since the fall he has had pain and swelling to the lateral aspect of the right ankle. He is unable to bear weight but states it is painful. He took an oxycodone yesterday with minimal relief of his symptoms. No numbness, tingling, weakness in the leg, fevers or chills. He has not missed any session of dialysis. Related Data Allergies Allergy/AdvReac Type Severity Reaction Status Date / Time No Known Allergies Allergy Verified 05/19/22 10:52 Review of Systems Review of Systems: Gen.: Denies fevers or chills Eyes: Denies eye pain or visual change ENT: Denies congestion Respiratory: Denies shortness of breath or cough CV: Denies chest pain or palpitations GI: Denies abdominal pain nausea, emesis or diarrhea denies burning, urgency, frequency or hematuria Musculoskeletal: Reports ankle pain Neuro: Denies numbness, tingling, weakness or focal weakness Skin: Denies rash Except as documented, all other systems reviewed and negative [facility] Past Medical History Medical History Acute diastolic CHF (congestive heart failure) Acute systolic heart failure Adult polycystic kidney disease Anemia of chronic disease Cardiomyopathy Flash pulmonary edema Surgical History Surgical History No significant past surgical history Family History Family History Sibling Heart disease Fraternal twin brother had CABG X4. Sibling Cancer Sibling ESRD on dialysis Mother Cerebrovascular accident Old age of old age Father Heart disease around 60 y.o. of uncertain type of heart disease Social History Social History Social History: Negative for alcohol cigarettes or tobacco. 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 His brother Gavino romero is the poa. He has One child who is an adult daughter. He is . Code status full code Smoking status: Never smoker Second hand tobacco smoke exposure: No Alcohol intake: never Substance use: current Substance use type: does not use Lack of Transportation: No Lack of Food: Never True Current Housing: I Have Housing Concerned About Future Housing: No Difficulty Paying Gas/Electric Bills: No Difficulty Paying for Meds: No Currently Unemployed: No Education: Decline to Answer Difficulty w/ Childcare or Family Care: No Spiritual care concerns: No Exam Narrative: Gen: Alert, oriented, no acute distress. Eyes: EOMI, no icterus Pulm: Respirations even and unlabored, symmetric thorax expansion, no audible stridor or visible cyanosis CV: 2+ DP and PT pulses bilaterally. GI: No tenderness to palpation of the abdomen. No distension, no voluntary/involuntary guarding Neuro: AOx4, moves all extremities without apparent difficulty or weakness, follows commands MSK: No obvious deformity of the right lower extremity. There is bony tenderness to palpation along the right lateral malleolus. There is no tenderness to palpation along the medial malleoli, bones of the foot, tibia-fibula, knee or hip. Full range of motion in the hip and knee without pain. Skin: No jaundice, no visible bruising, rashes, lesions or wounds on
[2022-09-26] MEDS: HYDROcodone/acetaminophen (*CRX) 5-325 MG TABLET 1 TAB PO (11:14)
[2022-09-26 11:15] VITALS: PULSE 98; RESP 16; TEMP 36.8; O2SAT 98
[2022-09-26 11:21] VITALS: BP 113/81
[2022-09-26 12:00] VITALS: BP 119/80; PULSE 83; RESP 16; O2SAT 98
[2022-09-26 13:00] VITALS: BP 123/80; PULSE 80; RESP 16; TEMP 36.3; O2SAT 100
--- NOTE | 2022-09-26 13:22 | PC.NURSE ---
walker ordered instead of crutches due to maturing fistula in LUE
== END 2022-09-26 13:26 | disposition home or self-care (01) ==
PROVIDERS: Emergency Provider Physician Assistant
DX: S92.001A Unspecified fracture of right calcaneus, initial encounter for closed fracture (principal); N18.6 End stage renal disease; I50.41 Acute combined systolic (congestive) and diastolic (congestive) heart failure; Z99.2 Dependence on renal dialysis; W01.0XXA Fall on same level from slipping, tripping and stumbling without subsequent striking against object, initial encounter
CPT/HCPCS: 29515; 73610; 99284; A9270

== ENCOUNTER 2024-12-09 20:22 | Inpatient (IN) | payer MEDICARE, MEDICAID, SELFPAY ==
[2024-12-09] VITALS (13 sets, daily range): BP systolic 139–152; BP diastolic 91–101; PULSE 73–92; RESP 16–33; TEMP 36.6–36.7; O2SAT 96–100
--- NOTE | ~2024-12-09 | XR_ITS ---
XR abdomen/kub 1V Ordering provider: Ravi Mortensen MD History: . constipation . Comparison: None. FINDINGS: BOWEL: Nonobstructive bowel gas pattern. Fecal material is loaded in the colon. ORGANOMEGALY: None. SIGNIFICANT PATHOLOGIC CALCIFICATIONS: None. OTHER: No free air is seen under the diaphragm. IMPRESSION: NO ACUTE ABDOMINAL FINDINGS. Constipation. Reviewed, dictated and finalized at location A.
--- NOTE | ~2024-12-09 | XR_ITS ---
EXAMINATION: XR chest 1V portable DATE: 12/16/2024 11:46 INDICATION: Shortness of breath TECHNIQUE: frontal view of the chest was obtained. COMPARISON: Chest radiograph dated 12/12/2024 FINDINGS: The lungs are clear with no focal airspace opacities, pulmonary edema, pleural effusion or pneumothor ax. The cardiomediastinal silhouette is normal. Visualized bones and soft tissues are unremarkable. IMPRESSION: 1. No acute cardiopulmonary disease. Reviewed, dictated and finalized at location A.
--- NOTE | ~2024-12-09 | CT_ITS ---
CTA chest PE protocol Ordering provider: Ravi Mortensen MD History: 59 years Male with . shortness of breath . Comparison: December 13, 2024 Technique: CT angiogram chest was performed following timed intravenous injection of contrast. Thin s lice axial images and reformatted coronal images were obtained. Three dimensional reformatted images of the chest were also obtained using a [employer] workstation. . Automated exposure control and iterati ve reconstruction technique were employed. The dose-length product was 663.30 mGy-cm. 200 mL Omnipaqu e 350 was given IV. Findings: PULMONARY ARTERIES: No pulmonary embolus. VISUALIZED THORACIC INLET: Normal. MEDIASTINUM: Aorta/coronary arteries: Mild atheromatous disease. Heart/other: The heart is not enlarged. Lymph nodes: No mediastinal or hilar adenopathy. LUNGS: No pulmonary nodules or masses. No infiltrates or effusions. No pneumothorax. Dependent atelectatic c hanges. VISUALIZED UPPER ABDOMEN: Polycystic kidney disease seen bilaterally. Multiple cysts in the liver sma ll sliding hiatus hernia. Otherwise, the visualized upper abdomen is normal. MUSCULOSKELETAL: Soft tissues: The superficial soft tissues are normal. Bones: Normal spine. IMPRESSION: 1. . No pulmonary embolism. 2. No acute cardiopulmonary pathology. 3. Polycystic disease with cysts in the kidneys and the liver. 4. Sliding hiatus hernia. Reviewed, dictated and finalized at location A.
--- NOTE | ~2024-12-09 | XR_ITS ---
CHEST RADIOGRAPH, PA AND LATERAL CLINICAL HISTORY: fever . COMPARISON: 12/09/2024 TECHNIQUE: PA and lateral views of the chest. FINDINGS The cardiomediastinal silhouette is unremarkable. Interval development of a small left-sided pleural effusion, seen best on lateral view. The remainder of the lungs are clear. IMPRESSION: Small left-sided pleural effusion without focal infiltrate. Reviewed, dictated and finalized at location A.
--- NOTE | ~2024-12-09 | CT_ITS ---
CT chest abdomen pelvis wo con Ordering provider: Micheline Jeronimo MD History: . r/o abscess . Comparison: May 17, 2022 Technique: CT chest without IV contrast. CT abdomen and pelvis without oral and IV contrast. Radiatio n reduction technique utilized. The dose-length product was 613.81 mGy-cm. FINDINGS: The study is limited due to lack of IV contrast. CHEST: --VISUALIZED THORACIC INLET: Normal as visualized. Postoperative changes in the area of the left thyr oid gland. --MEDIASTINUM: Aorta/coronary arteries: Mild atheromatous disease. Heart/other: The heart is not enlarged. Lymph nodes: No mediastinal or hilar adenopathy. --LUNGS: No pulmonary nodules or masses. No infiltrates. Trace of effusion seen bilaterally. No pneum othorax. --MUSCULOSKELETAL: Soft tissues: The superficial soft tissues are normal. Bones: Normal spine. ABDOMEN/PELVIS: --MUSCULOSKELETAL: Bones: Normal spine. Superficial soft tissues: The superficial soft tissues are normal. --UPPER ABDOMINAL ORGANS: Liver: Multiple cysts are noted. Gallbladder: Contracted. Spleen: Normal. Stomach/duodenum: Normal. Pancreas: Normal. Adrenals: Normal. Kidneys: Grossly enlarged polycystic kidneys are seen. Calcifications are seen in some of these cysts . --PELVIC ORGANS: The bladder is underfilled. No bladder stones. --BOWEL AND MESENTERY: Colon: No evidence of diverticulitis. Fecal material is loaded in the colon. Appendix is not demonstr ated.. Small Bowel: Normal. No obstruction. Peritoneum/mesentery: No free air or free fluid. No mesenteric lymphadenopathy. Calcific areas seen i n the left and right side of the pelvis of undefined nature --RETROPERITONEUM: Mild atheromatous disease of the abdominal aorta. No retroperitoneal lymphadenop athy. IMPRESSION: CHEST: 1. No acute cardiopulmonary pathology. 2. Trace of effusion seen in the lung bases. Pleural thickening cannot be excluded. ABDOMEN/PELVIS: 1. Polycystic kidneys. 2. Multiple cysts in the liver. 3. Constipation. Reviewed, dictated and finalized at location A. IMPRESSION: CHEST: 1. No acute cardiopulmonary pathology. 2. Trace of effusion seen in the lung bases. Pleural thickening cannot be excl uded. ABDOMEN/PELVIS: 1. Polycystic kidneys. 2. Multiple cysts in the liver. 3. Constipation.
--- NOTE | ~2024-12-09 | XR_ITS ---
XR chest 1V portable Ordering provider: Chaparro Holcomb MD History: 59 years Male with . SOB . Comparison: December 16, 2024 FINDINGS: MEDIASTINUM: The cardiac silhouette is slightly enlarged. Prominent enriqueta. Soft tissue density is seen in the right paratracheal area most likely vascular. LUNGS: No infiltrates, effusions or pneumothorax. Slightly prominent markings in the right lung base. Early pneumonia should be considered. OTHER: No free air under the diaphragm. IMPRESSION: Prominent markings in the right lung base. Early pneumonia should be considered. Clinical evaluation and follow-up advised. Reviewed, dictated and finalized at location A. IMPRESSION: Prominent markings in the right lung base. Early pneumonia should be considered . Clinical evaluation and follow-up advised.
--- NOTE | ~2024-12-09 | XR_ITS ---
XR chest 2V Ordering provider: Zev Lua MD History: 58 years Male with . chest pain across chest sob . Comparison: May 25, 2022 FINDINGS: MEDIASTINUM: The cardiac silhouette is slightly enlarged. LUNGS: No infiltrates, effusions or pneumothorax. OTHER: No free air under the diaphragm. IMPRESSION: No acute cardiopulmonary pathology. Reviewed, dictated and finalized at location A.
--- OUTSIDE RECORDS SUMMARY | 2024-12-09 20:24 | XMS_ITS | Clinical Summary ---
Author Organization [facility] Address [address] [place] [address] Care Team Providers Care Burnisher [employer] Bumper Name Role Phone John Acharya MD Primary Care Provider [phone] Source Comments [facility],non-owned Affiliates and Associated Physician Practices is amultiple site organization consisting of ambulatory clinics and hospital sitesin [place], [place], [place]. This disclosure is being madepursuant to the Care Everywhere program and may not contain all information available regarding this patient. Last updated 18.[facility] Allergies No known active allergies Medications * Be aware that medications may not be up to date on this document. Alwaysverify current medications with the patient. BUMETANIDE PO Active Aspirin Low Dose 81 MG tablet Take 1 (one) tablet by mouth every morning 10/04/2022 Active calcium acetate (Phoslo) 667 MG capsule Take 1 (one) capsule by mouth 10/16/2022 Active hydrALAZINE (Apresoline) 50 MG tablet Take 1 (one) tablet by mouth 3 times daily 10/16/2022 Active isosorbide mononitrate CR 24hr (Imdur) 30 MG tablet Take 1 (one) tablet by mouth every morning 10/16/2022 Active Entresto 24-26 MG tablet TAKE 1/2 TABLET BY MOUTH EVERY 12 HOURS 09/20/2022 Active calcium carbonate (Tums) 500 MG chew tablet TAKE 4 TABS BY MOUTH DAILY AT BEDTIME 02/12/2023 Active Docusate Sodium (DSS) 100 MG Take 100 mg by mouth 2 times daily as needed 10/18/2023 Active NIFEdipine CR osmotic 24hr (Procardia-XL) 90 MG tablet Take 1 (one) tablet by mouth once daily 04/26/2024 Active Active Problems Problem Noted Date Diagnosed Date Encounter regarding vascular access for dialysis for end-stage renal disease 08/22/2022 ESRD (end stage renal disease) 07/25/2022 Family History Medical History Relation Name Comments Renal Disease Brother CVA Mother Relation Name Status Comments Brother Mother Social History Tobacco Use Types Packs/Day Years Used Date Smoking Tobacco: Never Smokeless Tobacco: Never Tobacco Cessation:Counseling Given: No Alcohol Use Standard Drinks/Week Comments Not Currently 0 (1 standard drink = 0.6 oz pur e alcohol) Sex and Gender Information Value Date Recorded Sex Assigned at Not on file Legal Sex Male 9:07 AM [facility]YING INTER[facility] Gender Identity Not on file Sexual Orientation Not on file Last Filed Vital Signs Vital Sign Reading Time Taken Comments Blood Pressure 123/81 06/30/2024 2:15 PM [facility] Pulse 91 06/30/2024 2:15 PM [facility] Temperature 37.5 C (99.5 F) 06/30/2024 1:15 PM [facility] Respiratory Rate 20 06/30/2024 2:15 PM [facility] Oxygen Saturation 95% 06/30/2024 2:15 PM [facility] Inhaled Oxygen Concentration - - Weight 83.5 kg (184 lb) 06/30/2024 1:15 PM [facility]YING [facility] Height 185.4 cm (6' 1) 06/30/2024 1:15 PM [facility]YING [facility]N Body Mass Index 24.28 06/30/2024 1:15 PM BUYING [facility]N Plan of Treatment Upcoming Encounters Date Type Department Care Team (Late st Contact Info) Description 06/29/2025 2:15 PM BUYING INTERN Appointment [facility] [address], [address] [place] [address] [place] [address] [address] [place] [address] Health Maintenance Due Date Last Done Comments CT COLONOGRAPHY - COLON CA SCREENING 1963 FIT - COLON CA SCREENING 1963 FLEX SIG - COLON CA SCREENING 1963 LIPID TESTING 1963 HIV SCREENING 12/14/1978 DTAP/TDAP/TD VACCINES (1 - Tdap) 12/14/1982 PNEUMOCOCCAL VACCINE 50+ (1 of 1 - PCV) 12/14/2013 ZOSTER VACCINE (1 of 2) 12/14/2013 COVID-19 VACCINE (1 - 2023-2 5 season) 2024 DEPRESSION SCREENING 06/04/2024 MEDICARE AWV CALENDAR YEAR 2024 INFLUENZA VACCINE (#1) 2025 , 04/08/2023, 03/18/2022 COLOGUARD (AGES 45-75) - COL ON CA SCREENING 11/14/2025 11/14/2022 SCREENING FOR DIABETES 05/30/2026 , 08/08/2022 COLON MONITORING 10/27/2032 10/27/2022 COLONOSCOPY - COLON CA SCREENING 10/27/2032 10/27/2022 Colorectal Cancer Screening 10/27/2032 Respiratory Syncytial Virus (RSV) Vaccine Pt: or over 60 yrs (1 - 1-dose 75+ series) 12/14/2038 HEPATITIS C SCREENING Completed 06/26/2024 , 05/30/2023, 05/30/2023 HEPATITIS B VACCINE Aged Out No longe r eligible based on patient's age to complete this topic HIB VACCINE Aged Out No longer eligi ble based on patient's age to complete this topic HPV VACCINE Aged Out No longer eligi ble based on patient's age to complete this topic MENINGOCOCCAL (Group B) VACCINE SHARED DECISION-MAKING Aged Out No longer eligible based on patient's age to complete this topic MENINGOCOCCAL GROUPS A/C/Y/W VACCINE Aged Out No longer eligible b ased on patient's age to complete this topic Procedures Procedure Name Priority Date/Time Associated Diagnosis Comments BASIC METABOLIC PANEL (CALCIUM TOTAL) STAT 08/08/2022 10:08 AM BUYING INTERN Preop examination from Last 3 Months or Most Recently Relevant to Health Maintenance Results * (ABNORMAL) BASIC METABOLIC PANEL (CALCIUM TOTAL) (08/08/2022 10:08 AM BUYING INTERN) Glucose 97 70 - 105 mg/dL 08/08/2022 10:33 AM BUYING INTERN [facility] Sodium 137 136 - 145 mmol/L 08/08/2022 10:33 AM [facility]YING INTERN [facility] Potassium 4.5 3.5 - 5.1 mmol/L 08/08/2022 10:33 AM [facility] Chloride 99 98 - 107 mmol/L 08/08/2022 10:33 AM [facility] CO2 25 23 - 31 mmol/L 08/08/2022 10:33 AM [facility] Calcium 8.4 8.4 - 10.4 mg/dL 08/08/2022 10:33 AM [facility] Anion Gap 13 8 - 18 mmol/L 08/08/2022 10:33 AM [facility] BUN 54(H) 8.4 - 25.7 mg/dL 08/08/2022 10:33 AM [facility] Creatinine 11.06(H) 0.72 - 1.25 mg/dL 08/08/2022 10:33 AM [facility] eGFR by CKD-EPI 5(L) >=90 mL/min/1.7 3 m2 08/08/2022 10:33 AM [facility] Blood BLOOD SPECIMEN / Unknown Venipuncture / Unknown 08/08/2022 10:08 AM BUYING INTERN 08/08/2022 10:16 AM [facility] us Suzi Allen DO LAB - CHEMISTRY ORDERABLES Tori quintana Result [facility] [address] [place] [address] from Last 3 Months or Most Recently Relevant to Health Maintenance Insurance MEDICAID - [place] [employer] MANAGED MEDICARE ADV Care Teams Burnisher And Bumper Relationship Specialty Start Date End Date John Acharya MD [address] [address] PCP - General 06/19/22
--- OUTSIDE RECORDS SUMMARY | 2024-12-09 20:25 | XMS_ITS | Clinical Summary ---
Author Organization [facility] [place] [address] Address [address] [place] [address] Care Team Providers Care Bpm Analyst Name Role Phone Libby Glass NP Primary Care Provider Chaparro Holcomb MD Unavailable [phone] Leny Mares RN Unavailable [phone] Allergies No known active allergies Medications aspirin 81 mg enteric coated tabletIndication s:Myocardial Reinfarction Prevention,preve ntion of thrombosis Take 1 tablet (81 mg total) by mouth every morning 3 Active calcium acetate,phosphat bind, (PHOSLO) 667 mg capsule Take 2 capsules (1,334 mg total) by mouth 2 (two) times a day 90 capsule 1 4 Active Entresto 24-26 mg tablet TAKE 0.5 TABLETS BY MOUTH 2 TIMES A DAY. 90 tablet 1 4 Active bumetanide (BUMEX) 2 mg tablet TAKE 1 TABLET BY MOUTH EVERY MORNING 90 tablet 1 4 Active isosorbide mononitrate ER (IMDUR) 30 mg 24 hr tabletIndication s:Hypertension, essential Take 1 tablet (30 mg total) by mouth every morning 30 tablet 5 Active Additional Information Patient taking differently:30 mg oral Every morning,Take 2 tablets PO in the morning and 1 tablet at night, Reported on 08/15/2024 calcium carbonate (TUMS) 500 mg (200 mg elemental calcium) chewable tablet Take 4 tablet/chew tab (2,000 mg total) by mouth daily 4 Active hydrALAZINE (APRESOLINE) 100 mg tablet Take 1 tablet (100 mg total) by mouth 3 (three) times a day 5 Active NIFEdipine XL 90 mg 24 hr tablet Take 1 tablet (90 mg total) by mouth daily 4 Active metoprolol XL (TOPROL-XL) 25 mg extended release tablet Take 1 tablet (25 mg total) by mouth daily 30 tablet 11 5 07/04/19 26 Active Additional Information Patient not taking.Reported on 08/15/2024 lidocaine (LIDODERM) 5 % Place 1 patch on the skin daily Remove & discard patch within 12 hours or as directed by MD. 30 patch 5 Active Active Problems Problem Noted Date Diagnosed Date RSV (acute bronchiolitis due to respiratory syncytial virus) 07/01/2024 Overview (07/01/2024): You state you are feeling much better. Notify the office if any changes. Keep scheduled appointment for September Other chest pain 06/24/2024 Assessment & Plan (08/16/2024 5:24 PM CDT): Pressure around L chest with mild numb sensation down L arm. No association with exercise, position, inspiration. 2x negative stress test, no OTC med attempt at home. No new stressors identified. In light of workout regimen, suspect MSK pain or mild nerve impingement over angina, pericarditis (including uremic), PE, GERD, asthma, allergies, anxiety, vascular insufficiency. - pain: diclofenac gel, APAP 1g q6 PRN, lidocaine patch - ok to continue imdur 30mg XL daily - ECG without ischemic changes, troponin remains WNL Reports had improvement in chest pain with the lido patch which he was initially skeptical to trial. He has declined diclofenac gel that was offered. Had long discussion with patient regarding his chest pain not being cardiac in nature, more likely MSK-related, potentially had some contribution from RSV bronchiolitis earlier, and I encouraged him to try to take it easy in terms of his exercise/workout regimen over the next few days. Prescribed lidocaine patches at ri. Assessment & Plan (06/27/2024 4:28 PM COLLEGE SPECIALIST): Unclear etiology for chest pain. Initial workup shows mild elevation of troponins however EKG shows no acute ischemic changes. He also endorsed subjective fevers and flu-like symptoms but xray with clear lungs. On arrival vitals with hypotension and bedside POCUS with trace pericardial effusion. Blood pressure responsive to fluid resuscitation. Of note, 04/09/2023 Stress Echo: LV systolic fxn normal w EF 71% , Mod AI, Mild TR, PASP 26mmHg, and Negative for myocardial ischemia. Imaging/Diagnostic 06/25 TTE: LVEF 64%, No regional wall motion abnormalities, Mod dilated Left Atrium, Mild to mod AVR, No AV stenosis, PAP ~25mmHg, Mod Aortic root dilation 06/25 CT-Chest PE: No Evidence of PE, Mild to mod Cardiomegaly, Numerous heaptic and renal cysts. 06/27 Stress Echo: LVEF 59 %, Normal RV size and RVSF; Excellent exercise performance (13 METS). Louis Treadmill score: 9 (low risk) and Maximal treadmill stress echocardiogram study (~110% MPHR). Normal hyperdynamic contractile response with no inducible ischemia. 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 - Patient reports not taking metoprolol that was started by cards last month. He is unsure if he wants to start it as he is already on a lot of meds. - continue hydralazine/isordil, nifedipine XL 90mg daily - held entresto 05/16 bid due to hyperK (although K appears to be hemolyzed) - can resume at dc Assessment & Plan (06/27/2024 4:01 PM COLLEGE SPECIALIST): On home Bumex 2mg, nifedipine, Imdur, hydral and Entresto (per dispense report hydral recently increased to 100 TID and nifedipine to 90) - Home antihypertensives held iso hypotension upon arrival to ED. - Blood pressure 138/82 - TTE and Stress Echo completed (#see chest pain) BMI 24.0-24.9, adult 10/27/2022 Physical exam, annual 10/27/2022 Bilateral impacted cerumen 10/27/2022 Overview (10/27/2022): Bilateral cerumen impaction today. Bilateral ear irrigation completed ESRD (end stage renal disease) 07/25/2022 0 10/27/2022 Assessment & Plan (08/16/2024 5:19 PM CDT): Secondary to polycystic kidney disease. Pt on iHD MWF, no missed sessions. - renal c/s: iHD MWF, received inpt 08/15 pm - continue bumex 2mg daily, phoslo Assessment & Plan (06/27/2024 4:01 PM COLLEGE SPECIALIST): On schedule as outpatient - 06/26 iHD completed - Local Dialysis Center [facility] in [facility]. - Nephrology ESRD Team following Resolved Problems Problem Noted Date Diagnosed Date Resolved Date BMI 25.0-25.9,adult 02/28/2023 07/01/19 25 Assessment & Plan (03/21/2024 1:04 PM CDT): Weight/BMI is in healthy range. Continue healthy lifestyle to maintain. Assessment & Plan (01/07/2024 1:34 PM CDT): Weight/BMI is in healthy range. Continue healthy lifestyle to maintain. Encounters Date Type Department Care Team Description 12/03/2024 10:00 AM CDT - 12/03/2024 11:59 PM CDT Hospital Encounter [address] [address] ESRD (end stage renal disease) (FORM[facility]LY [facility]) Discharge Disposition: Discharge to home or self care 11/03/2024 10:00 AM CDT - 11/03/2024 11:59 PM CDT Hospital Encounter [address] [address] ESRD (end stage renal disease) ([facility]) Discharge Disposition: Discharge to home or self care 10/17/2024 Telephone [facility] [address] [facility] [id number] [place] [address] Leny Mares, TERRI 10/16/2024 Telephone [facility] [address] [facility] [id number] [place] [address] Leny Mares, TERRI 10/15/2024 10:00 AM CDT - 10/15/2024 11:59 PM CDT Hospital Encounter [address] [address] ESRD (end stage renal disease) ([facility]) Discharge Disposition: Discharge to home or self care from Last 3 Months Immunizations Immunization Administration Dates Next Due Hep B Vaccine 11/01/2023, 3,08/25/2022, 3 Influenza, Unspecified 03/21/2024,2022,06/04/2022(Deferred: Patient Refused),03/18/2022 PPD TEST 10/09/2023, 3,06/21/2022, 2 Pneumococcal Polysaccharide PPV23 11/14/2022 Surgical History Surgery Date Site/Laterality Comments INSERTION CENTRAL VENOUS ACC ESS DEVICE W/ SUBCUTANEOUS PORT AV FISTULA PLACEMENT 08/08/2022 Left COLONOSCOPY 05/04/2023 - 06/03/2023 Medical History Medical History Date Comments Chronic kidney disease Port-A-Cath in place Polycystic kidney disease Hypertension ESRD (end stage renal disease) on dialysis (HCC) Left thyroid nodule Family History Medical History Relation Name Comments Kidney disease Brother Stroke Mother Janet Cancer Sister Alfreda Anesthesia problems Neg Hx Relation Name Status Comments Brother Father Mother Janet CVA age 72 Sister Alfreda Social History Tobacco Use Types Packs/Day Years Used Date Smoking Tobacco: Never Smokeless Tobacco: Never Tobacco Cessation:Counseling Given: Not Answered [facility] Utilities Answer Date Recorded In the past 12 months has [employer], [employer], oil, or water [employer] threatened to shut off services in your home? No 06/13/2024 Social Connection and Isolat ion Panel [NHANES] Answer Date Recorded In a typical week, how many times do you talk on the phone with family, friends, or neighbors? More than three times a week 06/13/2024 How often do you get togethe r with friends or relatives? More than three times a week 06/13/2024 How often do you attend chur or voodoo services? 1 to 4 times per year 06/13/2024 Do you belong to any clubs o r organizations such as mormonism groups, unions, fraternal or athletic groups, or school groups? No 06/13/2024 How often do you attend meet ings of the clubs or organizations you belong to? Never 06/13/2024 Are you , , di vorced, , never , or living with a partner? 06/13/2024 AUDIT-C Answer Date Recorded Q1: How often do you have a drink containing alcohol? Never 10/17/2023 Q2: How many drinks containi ng alcohol do you have on a typical day when you are drinking? Patient does not drink Q3: How often do you have si x or more drinks on one occasion? Never 10/17/2023 Overall Financial Resource Strain (CARDIA) Answe r Date Recorded How hard is it for you to pa y for the very basics like food, housing, medical care, and heating? Somewhat hard 06/13/2024 PHQ-2 Answer Date Recorded PHQ-2 Total Score (If total score is 3 or more points, staff should administer the PHQ-9) 1 07/01/2024 Hunger Vital Sign Answer Date Recorded Within the past 12 months, y ou worried that your food would run out before you got the money to buy more. Never true 06/13/19 25 Within the past 12 months, t he food you bought just didn't last and you didn't have money to get more. Never true 06/13/2024 PRAPARE - Transportation Answer Date Re corded In the past 12 months, has l ack of transportation kept you from medical appointments or from getting medications? No 06/04 In the past 12 months, has l ack of transportation kept you from meetings, work, or from getting things needed for daily living? No 06/13/2024 Housing Stability Vital Sign Answer Nikolai e Recorded In the last 12 months, was t here a time when you were not able to pay the mortgage or rent on time? Yes 06/12/2023 In the last 12 months, how many places have you lived? 1 06/12/2023 In the last 12 months, was t here a time when you did not have a steady place to sleep or slept in a snf (including now)? No 06/12/2023 Housing Stability Vital Sign Answer Nikolai e Recorded In the last 12 months, was t here a time when you were not able to pay the mortgage or rent on time? No 06/13/2024 In the past 12 months, how m any times have you moved where you were living? 1 06/13/2024 At any time in the past 12 m [facility], were you homeless or living in a snf (including now)? No 06/13/2024 Personal Safety Answer Date Recorded Have you ever been in or are you currently in a harmful physical or emotional relationship or is someone making you feel afraid or unsafe? Denies 08/15/2024 Sex and Gender Information Value Date Recorded Sex Assigned at Not on file Legal Sex Male 2:12 AM COLLEGE SPECIALIST Gender Identity Not on file Sexual Orientation Not on file Obstetrics History Last Filed Vital Signs Vital Sign Reading Time Taken Comments Blood Pressure 129/84 08/16/2024 7:50 AM CDT Pulse 87 08/16/2024 7:50 AM CDT Temperature 36.9 C (98.4 F) 08/16/2024 7:50 AM CDT Respiratory Rate 16 08/16/2024 7:50 AM CDT Oxygen Saturation 98% 08/16/2024 7:50 AM CDT Inhaled Oxygen Concentration - - Weight 82.7 kg (182 lb 6.4 oz) 08/15/2024 6:20 P M CDT Height 185.4 cm (6' 1) 08/15/2024 6:20 PM CDT Body Mass Index 24.06 08/15/2024 6:20 PM CDT Plan of Treatment Health Maintenance Due Date Last Done Comments DTaP/Tdap/Td Vaccine (1 - Tdap) 12/14/1974 Zoster Vaccine (1 of 2) 12/14/2013 Pneumococcal vaccine <65 (2 of 2 - PCV) 11/15/2023 11/14/2022 Covid-19 Vaccine (4 2023-2 5 season) 2024 10/17/2021, 02/09/2021, 01/12/2021 Regular Well Visit/Exam 18-64 01/06/2025 01/07/2024, 10/27/2022 Influenza Vaccine (#1) 2025 , 04/08/2023, 04/08/2023, Additional history exists Depression Screening 07/01/2025 07/01/2024, 03/21/2024, 01/07/2024, Additional history exists Prostate Cancer Screening-PSA 01/08/2026 01/09/2024, 05/30/2023 Colon Cancer Screening-Colonoscopy 10/27/20322022 Hepatitis C Screening Completed 05/30/2023 Hepatitis B Screening Completed 08/15/2024 , 11/01/2023, 09/28/2022, Additional history exists Procedures Procedure Name Priority Date/Time Associated Diagnosis Comments HLA ANTIBODY SCREEN - PRA (CLASS I AND CLASS II) Routine 12/03/2024 10:00 AM CDT ESRD (end stage renal disease) (HCC) HLA ANTIBODY SCREEN BY PRA OR SAB PER SCHEDULE (CLASS I AND CLASS II) Routine 12/03/2024 10:00 AM CDT ESRD (end stage renal disease) (HCC) HLA ANTIBODY SCREEN BY PRA OR SAB PER SCHEDULE (CLASS I AND CLASS II) Routine 11/03/2024 10:00 AM CDT ESRD (end stage renal disease) (HCC) HLA ANTIBODY SCREEN - PRA (CLASS I AND CLASS II) Routine 10/15/2024 10:00 AM CDT ESRD (end stage renal disease) (HCC) HLA ANTIBODY SCREEN BY PRA OR SAB PER SCHEDULE (CLASS I AND CLASS II) Routine 10/15/2024 10:00 AM CDT ESRD (end stage renal disease) (HCC) PSA SCREEN Routine 01/09/2024 11:10 AM CDT HEPATITIS C ANTIBODY Routine 05/30/2023 12:42 PM COLLEGE SPECIALIST End stage renal disease (HCC) COLONOSCOPY Routine 10/27/2022 10:35 AM CDT from Last 3 Months or Most Recently Relevant to Health Maintenance Results * HLA Antibody Screen by PRA or SAB per Schedule (Class I and Class II) (12/03/2024 10:00 AM CDT) Blood 12/03/2024 10:0 0 AM CDT Narrative HISTOT[facility] - COLLEGE SPECIALIST Sample received in lab. PRA Screen ordered. us Wayne Abraham MD LAB BLOOD ORDERABLES Final Resu lt [facility]ISTOTR[facility] * HLA Antibody Screen - PRA (Class I and Class II) (12/03/2024 10:00 AM CDT) Class I Treatment Untreated [facility] Class I Dilution 1:1 [facility] Class I Tested Date 12/04/2024 [facility]OT[facility]AC Class I Result Negative [facility] Class I Percent Positive 0 [facility] Class II Treatment Untreated [facility]OT[facility] Class II Dilution 1:1 [facility]OT[facility] Class II Tested Date 12/04/2024 HISTOTRAC Class II Result Negative [facility] Class II Percent Positive 0 [facility] 12/03/2024 10:0 0 AM CDT 12/08/2024 10:58 AM CDT Narrative [facility]OT[facility] - 12/08/2024 10:58 AM CDT PRA (panel reactive antibody) HLA antibody screen is performed on serum samples using a method developed and validated by the [facility] HLA laboratory based on an FDA- approved IVD kit (LABScreen PRA, [facility], [place], [place]). Interpretive comments: The percentage of beads with MFI > 750 is reported, which indicates the percentage of donor population estimated to be incompatible with the patient tested. PRA > 0% is consistent with alloimmunization to HLA. Testing performed at the [facility] Laboratory, [address] [place] [address], 5th floor, [place], [address]. CLIA # [id number]. Donna Paulson, Ph.D., Paint Mixer, HLA Laboratory Lazaro Hernandez M.D., Ph.D., Oil Well Services Superintendent, HLA Laboratory Tammy Estevez, Ph.D., CLIA Oil Well Services Superintendent, [facility] Clinical Laboratories Current methodology and interpretive comments last revised on 09/26/2017. Wayne Abraham MD LAB BLOOD ORDERABLES Final Resu lt Performing Organization Address City/[facility]/ZIP Co de Phone Number HISTOTR[facility] * HLA Antibody Screen by PRA or SAB per Schedule (Class I and Class II) (11/03/2024 10:00 AM CDT) Blood 11/03/2024 10:0 0 AM CDT Narrative HISTOTRAC - COLLEGE SPECIALIST Sample received in lab and stored. No testing performed at this time. Wayne Abraham MD LAB BLOOD ORDERABLES Final Resu lt [facility] * HLA Antibody Screen by PRA or SAB per Schedule (Class I and Class II) (10/15/2024 10:00 AM CDT) Blood 10/15/2024 10:0 0 AM CDT Narrative HISTOTRAC - COLLEGE SPECIALIST Sample received in lab. PRA Screen ordered. us Wayne Abraham MD LAB BLOOD ORDERABLES Final Resu lt Performing Organization Address [facility]/ZIP Co de Phone Number HISTGERRYAC * HLA Antibody Screen - PRA (Class I and Class II) (10/15/2024 10:00 AM CDT) Class I Treatment Untreated [facility] Class I Dilution 1:1 [facility] Class I Tested Date 10/20/2024 [facility]OT[facility] Class I Result Negative [facility] Class I Percent Positive 0 [facility] Class II Treatment Untreated [facility] Class II Dilution 1:1 [facility] Class II Tested Date 10/21/2024 [facility]OT[facility] Class II Result Negative [facility] Class II Percent Positive 0 [facility]OT[facility] 10/15/2024 10:0 0 AM CDT 10/21/2024 10:22 AM CDT Narrative [facility]IST[facility] - 10/21/2024 10:22 AM CDT PRA (panel reactive antibody) HLA antibody screen is performed on serum samples using a method developed and validated by the [facility] HLA laboratory based on an FDA- approved IVD kit (LABScreen PRA, [facility], [place], [place]). Interpretive comments: The percentage of beads with MFI > 750 is reported, which indicates the percentage of donor population estimated to be incompatible with the patient tested. PRA > 0% is consistent with alloimmunization to HLA. Testing performed at the [facility], [address] [place] [address], 5th floor, [place], [address]. IA # [id number]. Donna Paulson, Ph.D., Paint Mixer, HLA Laboratory Lazaro Hernandez M.D., Ph.D., Oil Well Services Superintendent, HLA Laboratory Tammy Estevez, Ph.D., CLIA Oil Well Services Superintendent, [facility] Clinical Laboratories Current methodology and interpretive comments last revised on 09/26/2017. Wayne Abraham MD LAB BLOOD ORDERABLES Final Resu lt Performing Organization Address [facility]/ZIP Co de Phone Number HISTOTRAC * PSA screen (01/09/2024 11:10 AM CDT) PSA 0.82 < OR = 4.00 ng/mL [facility] Comment: The total PSA value from this assay system is standardized against the WHO standard. The test result will be approximately 20% lower when compared to the equimolar-standardized total PSA (Osman Hart). Comparison of serial PSA results should be interpreted with this fact in mind. This test was performed using the Siemens chemiluminescent method. Values obtained from different assay methods cannot be used interchangeably. PSA levels, regardless of value, should not be interpreted as absolute evidence of the presence or absence of disease. 01/09/2024 11:1 0 AM CDT 01/09/2024 11:11 AM CDT us Libby Glass NP LAB BLOOD ORDERABLES Final Re sult Performing Organization Address City/[facility] Co de Phone Number [facility] [address] [place] [address] * Hepatitis C antibody Blood (05/30/2023 12:42 PM COLLEGE SPECIALIST) Pathologist [facility] Hep C Ab Nonreactive Nonreactive [facility] Comment:Antibodies to HCV no t detected. Does NOT exclude the possibility of recent exposure to HCV. Current interpretive data was last revised on 22 Blood 05/30/2023 12:4 2 PM COLLEGE SPECIALIST 05/30/2023 1:22 PM COLLEGE SPECIALIST Narrative [facility] - 05/30/2023 2:06 PM COLLEGE SPECIALIST This lab is being obtained as part of a Kidney transplant evaluation, is time sensitive, and should only be drawn during the evaluation visit at [facility] Lab. Leta Rudolph MD LAB MICROBIOLOGY - GENERAL ORDERABLES Final Result Performing Organization Address City/[facility]/ZIP Co de Phone Number [facility] [place] [address] * Colonoscopy (10/27/2022 10:35 AM CDT) Anatomical Region Laterality Modality Other us Historical Provider ENDOSCOPY PROCEDURES Tori l Result from Last 3 Months or Most Recently Relevant to Health Maintenance Insurance [employer] UHC MEDICARE ADVANTAGE UHC MEDICARE ADVANTAGE [facility] MEDICARE ADVANTAGE IDPA Advance Directives For more information, please contact: [phone] * Full Code (Latest Code Status on File) Date Activated Date Inactivated Comments 08/15/2024 7:16 PM 08/16/2024 4:50 PM * Full Code Date Activated Date Inactivated Comments 06/25/2024 1:35 AM 06/27/2024 10:47 PM * Full Code Date Activated Date Inactivated Comments 10/17/2023 10:40 AM 10/19/2023 5:30 PM Care Teams Bpm Analyst Relationship Specialty Start Date End Date Libby Glass NP [address] [facility] [address] [place] [address] PCP - General Internal Medicine 10/27/22 Chaparro Holcomb MD [address] [address] Referring Physician Nephrology 10/27/22 Leny Mares, RN [address] [facility] [address] [place] [address] [id number] Bottom Cementer 02/15/23 Dental [facility] Dentist 08/23/23
--- OUTSIDE RECORDS SUMMARY | 2024-12-09 20:25 | XMS_ITS ---
Author Organization [facility] Suzanne tesfaye (HIE interaction) Address [address] [place] [id number] Care Team Providers Care Public Health Service Officer Name Role Phone Unavailable Unavailable Unavailable Allergies, Adverse Reactions, Alerts Allergy Name Allergy Type Status Severity Reaction(s) Onset Date Inactive Date Treating Clinician Comments No Known Allergies Allergy Active 2022-05 17:51:5 8 Medications Ordered Medication Name Filled Medication Name Start Date Stop Date Current Medication? Ordering Clinician Indication Dosage Frequency Signature (SIG) Comments Components calcitriol 10-23 19:23: 51 Yes [id number] Number of Repeats Allowed: Frequency: Three times a week Mircera 10-23 15:44: 50 Yes [id number] Number of Repeats Allowed: Frequency: JUSTIN dosing, every four weeks heparin sodium, porcine 08-06 12:25: 13 Yes [id number] Number of Repeats Allowed: Frequency: Every Dialysis TreatmentD osesOrdere d: Hourly Dose 1000 Units/Hr 1:1000 Units/mL[place]: Intravenou s heparin sodium, porcine 08-06 12:24: 04 Yes [id number] Number of Repeats Allowed: Frequency: Every Dialysis TreatmentD osesOrdere d: Loading Dose 2000 Units 1:1000 Units/mLRo [place]: Intravenou s Problems This patient has no known problems. Procedures Procedure Date / Time Performed Performing Clinician Francine ce Details AV Fistula 2022-08-08 06:00:00 Access Surgeon WALLY COHEN ([id number]),[place], [place] Access Site Upper Arm (Left) Access Use Start Date 2022-09-21 00:00:0 0 Central Venous Catheter (CVC)2022-05-19 06:00:00 Access Site Chest (Right) Access Use Start Date 2022-05-19 06:00:0 0 Access Use End Date 2022-10-20 05:00:00 DIALYSIS TREATMENT INFORMATION Conventional Hemodialysis Date Type Treatment Start Date Treatment End Date Pre-Treatment Vitals Post-Treatment Vitals Weight Gain BFR DFR Actual UF Dialysis Access December 05, 2024 In-Ce nter Hemod ialys is Treat ment 2024-12-05 T13:31:59. 000Z 2024-12-05 T17:03:00. 000Z BP Sitting (Pre-Dialysis) 129/79 mmHg BP Sitting (Post-D ialysis ) 148/ 83 mmHg BP Standing (Pre-Dialysis) 138/90 mmHg Sitti ng Heart Rate Post-Dialysis 85 BPM Sitting Heart Rate Pre-Dialysis 95 BPM Temperatu re Post-Dialysis 97.6 degF Standing Heart Rate Pre-Dialysis 100 BPM Temperature Pre-Dialysis 97 degF December 03, 2024 In-Center Hemodialysis Treatment 7407-54-77O03:20:00.000Z 8443-86-85C03:53:23.000Z BP Sitting (Pre-Dialysis) 135/84 mmHg BP Sitting (Post-Dialysis) 132/82 mmHg Concurrent Access: falseAV Fistula Upper Arm (Left) Arterial BP Standing (Pre-Dialysis) 142/94 mmHg BP Standing (P ost-Dialysis) 157/80 mmHg Sitting Heart Rate Pre-Dialysis 102 BPM Sitting Heart Rate Post-Dialysis 93 BPM Standing Heart Rate Pre-Dialysis 105 BPM Standing Heart Rate Post-Dialysis 97 BPM Temperature Pre-Dialysis 97 degF December 01, 2024 In-Center Hemodialysis Treatment 3811-55-06N38:59:22.000Z 8822-79-71S45:23:22.000Z BP Sitting (Pre-Dialysis) 150/89 mmHg BP Sitting (Post-Dialysis) 142/82 mmHg Concurrent Access: falseAV Fistula Upper Arm (Left) Arterial BP Standing (Pre-Dialysis) 170/100 mmHg BP Standing (P ost-Dialysis) 139/79 mmHg Sitting Heart Rate Pre-Dialysis 90 BPM Sitting Heart Rate Post-Dialysis 85 BPM Standing Heart Rate Pre-Dialysis 95 BPM Standing Heart Rate Post-Dialysis 102 BPM Temperature Pre-Dialysis 97 degF Temperature Post -Dialysis 97 degF November 28, 2024 In-Center Hemodialysis Treatment 6614-10-34H33:25:07.000Z 4369-53-45Y23:56:07.000Z BP Sitting (Pre-Dialysis) 145/86 mmHg BP Sitting (Post-Dialysis) 141/86 mmHg Concurrent Access: falseAV Fistula Upper Arm (Left) Arterial BP Standing (Pre-Dialysis) 155/96 mmHg BP Standing (P ost-Dialysis) 137/93 mmHg Sitting Heart Rate Pre-Dialysis 84 BPM Sitting Heart Rate Post-Dialysis 80 BPM Standing Heart Rate Pre-Dialysis 92 BPM Standing Heart Rate Post-Dialysis 91 BPM Temperature Pre-Dialysis 97.6 degF Temperature Post -Dialysis 97.3 degF November 26, 2024 In-Center Hemodialysis Treatment 9686-38-08O15:18:45.000Z 7688-68-12T64:49:45.000Z BP Sitting (Pre-Dialysis) 121/81 mmHg BP Sitting (Post-Dialysis) 115/69 mmHg Concurrent Access: falseAV Fistula Upper Arm (Left) Arterial BP Standing (Pre-Dialysis) 133/94 mmHg BP Standing (P ost-Dialysis) 122/82 mmHg Sitting Heart Rate Pre-Dialysis 98 BPM Sitting Heart Rate Post-Dialysis 84 BPM Standing Heart Rate Pre-Dialysis 106 BPM Standing Heart Rate Post-Dialysis 104 BPM Temperature Pre-Dialysis 97.8 degF Temperature Post -Dialysis 97 degF November 24, 2024 In-Center Hemodialysis Treatment 5036-39-70J49:06:11.000Z 1414-28-02Q49:39:12.000Z BP Sitting (Pre-Dialysis) 145/92 mmHg BP Sitting (Post-Dialysis) 141/91 mmHg Concurrent Access: falseAV Fistula Upper Arm (Left) Arterial BP Standing (Pre-Dialysis) 155/97 mmHg BP Standing (P ost-Dialysis) 153/81 mmHg Sitting Heart Rate Pre-Dialysis 88 BPM Sitting Heart Rate Post-Dialysis 99 BPM Standing Heart Rate Pre-Dialysis 92 BPM Standing Heart Rate Post-Dialysis 100 BPM Temperature Pre-Dialysis 97 degF Temperature Post -Dialysis 97 degF November 21, 2024 In-Center Hemodialysis Treatment 6987-54-56N17:49:00.000Z 6584-23-71V24:25:07.000Z BP Sitting (Pre-Dialysis) 158/101 mmHg BP Sitting (Post-Dialysis) 161/91 mmHg Concurrent Access: falseAV Fistula Upper Arm (Left) Arterial Sitting Heart Rate Pre-Dialysis 92 BPM Sitting H eart Rate Post-Dialysis 98 BPM Temperature Pre-Dialysis 97 degF November 19, 2024 In-Center Hemodialysis Treatment 2851-21-41I76:57:53.000Z 4933-39-85Y16:30:54.000Z BP Sitting (Pre-Dialysis) 133/81 mmHg BP Sitting (Post-Dialysis) 153/93 mmHg Concurrent Access: falseAV Fistula Upper Arm (Left) Arterial BP Standing (Pre-Dialysis) 112/63 mmHg BP Standing (P ost-Dialysis) 147/103 mmHg Sitting Heart Rate Pre-Dialysis 79 BPM Sitting Heart Rate Post-Dialysis 80 BPM Standing Heart Rate Pre-Dialysis 84 BPM Standing Heart Rate Post-Dialysis 93 BPM Temperature Pre-Dialysis 97 degF Temperature Post -Dialysis 97 degF November 17, 2024 In-Center Hemodialysis Treatment 7728-98-84C98:49:26.000Z 4115-45-72D04:26:26.000Z BP Sitting (Pre-Dialysis) 156/93 mmHg BP Sitting (Post-Dialysis) 192/67 mmHg Concurrent Access: falseAV Fistula Upper Arm (Left) Arterial Sitting Heart Rate Pre-Dialysis 88 BPM BP Standi ng (Post-Dialysis) 132/85 mmHg Temperature Pre-Dialysis 97 degF Sitting Heart Ra te Post-Dialysis 86 BPM Standing Heart Rate Post-Carla lysis 99 BPM Temperature Post-Dialysis 97 degF November 12, 2024 In-Center Hemodialysis Treatment 0426-11-80U81:16:51.000Z 8222-34-09J53:47:52.000Z BP Sitting (Pre-Dialysis) 149/95 mmHg BP Sitting (Post-Dialysis) 135/82 mmHg Concurrent Access: falseAV Fistula Upper Arm (Left) Arterial Sitting Heart Rate Pre-Dialysis 89 BPM BP Standi ng (Post-Dialysis) 132/85 mmHg Temperature Pre-Dialysis 97 degF Sitting Heart Ra te Post-Dialysis 86 BPM Standing Heart Rate Post-Carla lysis 98 BPM Temperature Post-Dialysis 97 degF November 10, 2024 In-Center Hemodialysis Treatment 3965-43-72C62:53:25.000Z 8875-57-56Z78:25:25.000Z BP Sitting (Pre-Dialysis) 162/96 mmHg BP Sitting (Post-Dialysis) 162/139 mmHg Concurrent Access: falseAV Fistula Upper Arm (Left) Arterial Sitting Heart Rate Pre-Dialysis 85 BPM BP Standi ng (Post-Dialysis) 128/82 mmHg Temperature Pre-Dialysis 97 degF Sitting Heart Ra te Post-Dialysis 62 BPM Standing Heart Rate Post-Carla lysis 107 BPM Temperature Post-Dialysis 97 degF November 07, 2024 In-Center Hemodialysis Treatment 2233-41-11S48:47:42.000Z 9354-86-24E09:59:42.000Z BP Sitting (Pre-Dialysis) 150/94 mmHg BP Sitting (Post-Dialysis) 152/91 mmHg Concurrent Access: falseAV Fistula Upper Arm (Left) Arterial BP Standing (Pre-Dialysis) 163/87 mmHg Sitti ng Heart Rate Post-Dialysis 102 BPM Sitting Heart Rate Pre-Dialysis 87 BPM Temperatu re Post-Dialysis 97.3 degF Standing Heart Rate Pre-Dialysis 74 BPM Temperature Pre-Dialysis 97.3 degF November 05, 2024 In-Center Hemodialysis Treatment 1612-43-33W74:07:00.000Z 9411-78-76T94:52:32.000Z BP Sitting (Pre-Dialysis) 134/83 mmHg BP Sitting (Post-Dialysis) 136/77 mmHg Concurrent Access: falseAV Fistula Upper Arm (Left) Arterial BP Standing (Pre-Dialysis) 137/82 mmHg BP Standing (P ost-Dialysis) 138/86 mmHg Sitting Heart Rate Pre-Dialysis 71 BPM Sitting Heart Rate Post-Dialysis 100 BPM Standing Heart Rate Pre-Dialysis 76 BPM Standing Heart Rate Post-Dialysis 108 BPM Temperature Pre-Dialysis 97 degF Temperature Post -Dialysis 97 degF November 03, 2024 In-Center Hemodialysis Treatment 4887-59-71I51:24:49.000Z 2982-37-36S50:57:49.000Z BP Sitting (Pre-Dialysis) 197/116 mmHg BP Sitting (Post-Dialysis) 134/93 mmHg Concurrent Access: falseAV Fistula Upper Arm (Left) Arterial Sitting Heart Rate Pre-Dialysis 85 BPM Sitting H eart Rate Post-Dialysis 95 BPM Temperature Pre-Dialysis 97 degF Temperature Post -Dialysis 97 degF October 31, 2024 In-Center Hemodialysis Treatment 4513-46-94G32:33:40.000Z 4920-36-12Q96:01:40.000Z BP Sitting (Pre-Dialysis) 159/92 mmHg BP Sitting (Post-Dialysis) 153/131 mmHg Concurrent Access: falseAV Fistula Upper Arm (Left) Arterial BP Standing (Pre-Dialysis) 164/99 mmHg BP Standing (P ost-Dialysis) 151/96 mmHg Sitting Heart Rate Pre-Dialysis 90 BPM Sitting Heart Rate Post-Dialysis 73 BPM Standing Heart Rate Pre-Dialysis 92 BPM Standing Heart Rate Post-Dialysis 105 BPM Temperature Pre-Dialysis 97.6 degF October 29, 2024 In-Center Hemodialysis Treatment 8457-77-01Z81:06:50.000Z 1701-45-96T17:38:50.000Z BP Sitting (Pre-Dialysis) 164/105 mmHg BP Sitting (Post-Dialysis) 127/83 mmHg Concurrent Access: falseAV Fistula Upper Arm (Left) Arterial Sitting Heart Rate Pre-Dialysis 84 BPM Sitting H eart Rate Post-Dialysis 84 BPM Temperature Pre-Dialysis 97 degF Temperature Post -Dialysis 97.7 degF October 27, 2024 In-Center Hemodialysis Treatment 7038-83-66Y47:19:29.000Z 8442-35-03T58:21:36.000Z BP Sitting (Pre-Dialysis) 152/97 mmHg BP Sitting (Post-Dialysis) 132/74 mmHg Concurrent Access: falseAV Fistula Upper Arm (Left) Arterial Sitting Heart Rate Pre-Dialysis 85 BPM BP Standi ng (Post-Dialysis) 137/89 mmHg Temperature Pre-Dialysis 97 degF Sitting Heart Ra te Post-Dialysis 90 BPM Standing Heart Rate Post-Carla lysis 107 BPM Temperature Post-Dialysis 97 degF October 24, 2024 In-Center Hemodialysis Treatment 3053-99-57Z56:22:54.000Z 8702-77-77B20:54:54.000Z BP Sitting (Pre-Dialysis) 171/96 mmHg BP Sitting (Post-Dialysis) 132/74 mmHg Concurrent Access: falseAV Fistula Upper Arm (Left) Arterial Sitting Heart Rate Pre-Dialysis 89 BPM BP Standi ng (Post-Dialysis) 137/79 mmHg Temperature Pre-Dialysis 97 degF Sitting Heart Ra te Post-Dialysis 90 BPM Standing Heart Rate Post-Carla lysis 107 BPM Temperature Post-Dialysis 97 .3 degF October 22, 2024 In-Center Hemodialysis Treatment 6902-24-55V61:44:14.000Z 8513-99-28E45:16:13.000Z BP Sitting (Pre-Dialysis) 158/91 mmHg BP Sitting (Post-Dialysis) 132/76 mmHg Concurrent Access: falseAV Fistula Upper Arm (Left) Arterial BP Standing (Pre-Dialysis) 150/90 mmHg BP Standing (P ost-Dialysis) 127/86 mmHg Sitting Heart Rate Pre-Dialysis 85 BPM Sitting Heart Rate Post-Dialysis 94 BPM Standing Heart Rate Pre-Dialysis 90 BPM Standing Heart Rate Post-Dialysis 104 BPM Temperature Pre-Dialysis 97.3 degF Temperature Post -Dialysis 97 degF October 20, 2024 In-Center Hemodialysis Treatment 8331-87-08L22:24:50.000Z 9057-98-49M91:02:51.000Z BP Sitting (Pre-Dialysis) 119/53 mmHg BP Sitting (Post-Dialysis) 139/87 mmHg Concurrent Access: falseAV Fistula Upper Arm (Left) Arterial Sitting Heart Rate Pre-Dialysis 56 BPM BP Standi ng (Post-Dialysis) 132/77 mmHg Temperature Pre-Dialysis 97 degF Sitting Heart Ra te Post-Dialysis 88 BPM Standing Heart Rate Post-Carla lysis 105 BPM Temperature Post-Dialysis 97 degF October 17, 2024 In-Center Hemodialysis Treatment 2967-35-83K84:25:52.000Z 6045-64-51P03:35:00.000Z BP Sitting (Pre-Dialysis) 184/119 mmHg BP Sitting (Post-Dialysis) 98/72 mmHg Concurrent Access: falseAV Fistula Upper Arm (Left) Arterial Sitting Heart Rate Pre-Dialysis 88 BPM Sitting H eart Rate Post-Dialysis 104 BPM Temperature Pre-Dialysis 97 degF Temperature Post -Dialysis 97.4 degF October 15, 2024 In-Center Hemodialysis Treatment 6178-53-77S81:40:20.000Z 0797-10-12E16:00:19.000Z BP Sitting (Pre-Dialysis) 126/81 mmHg BP Sitting (Post-Dialysis) 127/76 mmHg Concurrent Access: falseAV Fistula Upper Arm (Left) Arterial BP Standing (Pre-Dialysis) 133/78 mmHg BP Standing (P ost-Dialysis) 132/86 mmHg Sitting Heart Rate Pre-Dialysis 97 BPM Sitting Heart Rate Post-Dialysis 88 BPM Standing Heart Rate Pre-Dialysis 101 BPM Standing Heart Rate Post-Dialysis 102 BPM Temperature Pre-Dialysis 97.2 degF Temperature Post -Dialysis 97 degF October 13, 2024 In-Center Hemodialysis Treatment [id number]:56:47.000Z 9109-21-48R03:27:48.000Z BP Sitting (Pre-Dialysis) 153/97 mmHg BP Sitting (Post-Dialysis) 150/96 mmHg Concurrent Access: falseAV Fistula Upper Arm (Left) Arterial Sitting Heart Rate Pre-Dialysis 91 BPM BP Standi ng (Post-Dialysis) 122/89 mmHg Temperature Pre-Dialysis 97 degF Sitting Heart Ra te Post-Dialysis 103 BPM Standing Heart Rate Post-Carla lysis 106 BPM Temperature Post-Dialysis 97 degF October 10, 2024 In-Center Hemodialysis Treatment 0387-13-45B64:11:59.000Z 7634-52-26X65:39:58.000Z BP Sitting (Pre-Dialysis) 114/71 mmHg BP Sitting (Post-Dialysis) 121/75 mmHg Concurrent Access: falseAV Fistula Upper Arm (Left) Arterial Sitting Heart Rate Pre-Dialysis 65 BPM Sitting H eart Rate Post-Dialysis 86 BPM Temperature Pre-Dialysis 97 degF Temperature Post -Dialysis 97.3 degF October 08, 2024 In-Center Hemodialysis Treatment 1333-56-34U31:43:52.000Z 9100-71-78T64:55:52.000Z BP Sitting (Pre-Dialysis) 113/68 mmHg BP Sitting (Post-Dialysis) 154/86 mmHg Concurrent Access: falseAV Fistula Upper Arm (Left) Arterial BP Standing (Pre-Dialysis) 124/78 mmHg BP Standing (P ost-Dialysis) 149/88 mmHg Sitting Heart Rate Pre-Dialysis 88 BPM Sitting Heart Rate Post-Dialysis 101 BPM Standing Heart Rate Pre-Dialysis 93 BPM Standing Heart Rate Post-Dialysis 103 BPM Temperature Pre-Dialysis 97 degF Temperature Post -Dialysis 97.8 degF October 06, 2024 In-Center Hemodialysis Treatment 4321-39-15B62:22:19.000Z 3087-72-70X60:55:19.000Z BP Sitting (Pre-Dialysis) 131/85 mmHg BP Sitting (Post-Dialysis) 136/82 mmHg Concurrent Access: falseAV Fistula Upper Arm (Left) Arterial BP Standing (Pre-Dialysis) 130/88 mmHg BP Standing (P ost-Dialysis) 118/84 mmHg Sitting Heart Rate Pre-Dialysis 88 BPM Sitting Heart Rate Post-Dialysis 96 BPM Standing Heart Rate Pre-Dialysis 96 BPM Temperature Post-Dialysis 97.8 degF Temperature Pre-Dialysis 97 degF October 03, 2024 In-Center Hemodialysis Treatment 9762-26-54P60:21:05.000Z 5361-17-61S89:54:04.000Z BP Sitting (Pre-Dialysis) 120/79 mmHg BP Sitting (Post-Dialysis) 111/54 mmHg Concurrent Access: falseAV Fistula Upper Arm (Left) Arterial BP Standing (Pre-Dialysis) 125/80 mmHg BP Standing (P ost-Dialysis) 124/43 mmHg Sitting Heart Rate Pre-Dialysis 92 BPM Sitting Heart Rate Post-Dialysis 44 BPM Standing Heart Rate Pre-Dialysis 102 BPM Standing Heart Rate Post-Dialysis 124 BPM Temperature Pre-Dialysis 97 degF Temperature Post -Dialysis 97 degF October 01, 2024 In-Center Hemodialysis Treatment 1273-04-00T74:26:47.000Z 8502-07-49J17:58:46.000Z BP Sitting (Pre-Dialysis) 124/78 mmHg BP Sitting (Post-Dialysis) 119/82 mmHg Concurrent Access: falseAV Fistula Upper Arm (Left) Arterial BP Standing (Pre-Dialysis) 129/84 mmHg BP Standing (P ost-Dialysis) 143/94 mmHg Sitting Heart Rate Pre-Dialysis 90 BPM Sitting Heart Rate Post-Dialysis 86 BPM Standing Heart Rate Pre-Dialysis 93 BPM Standing Heart Rate Post-Dialysis 103 BPM Temperature Pre-Dialysis 97.3 degF Temperature Post -Dialysis 97.6 degF September 29, 2024 In-Center Hemodialysis Treatment 450 mL/min 500 mL/min Concurrent Access: false September 26, 2024 In-Center Hemodialysis Treatment 20 25 -0 4- 25 T1 6: 25 :3 6. 00 0Z 20 25 -0 4- 25 T1 9: 55 :3 6. 00 0Z BP Sitting (Pre-Dial ysis) 104/71 mmHg BP Sitting (Post-Carla lysis) 128/81 mmHg Concurrent Access: falseAV Fistula Upper Arm (Left) Arterial Sitting Heart Rate Pre-Dialysis 107 BPM BP Standi ng (Post-Dialysis) 140/90 mmHg Temperature Pre-Dialysis 97 degF Sitting Heart Ra te Post-Dialysis 90 BPM Standing Heart Rate Post-Carla lysis 98 BPM Temperature Post-Dialysis 97 degF September 24, 2024 In-Center Hemodialysis Treatment 4831-66-34P83:47:55.000Z 2041-95-41P22:22:54.000Z BP Sitting (Pre-Dialysis) 133/85 mmHg BP Sitting (Post-Dialysis) 136/78 mmHg Concurrent Access: falseAV Fistula Upper Arm (Left) Arterial BP Standing (Pre-Dialysis) 135/85 mmHg BP Standing (P ost-Dialysis) 146/98 mmHg Sitting Heart Rate Pre-Dialysis 96 BPM Sitting Heart Rate Post-Dialysis 97 BPM Standing Heart Rate Pre-Dialysis 105 BPM Standing Heart Rate Post-Dialysis 104 BPM Temperature Pre-Dialysis 97 degF Temperature Post -Dialysis 97 degF September 22, 2024 In-Center Hemodialysis Treatment 0109-27-67S08:26:32.000Z 2085-58-18T14:00:00.000Z BP Sitting (Pre-Dialysis) 162/85 mmHg BP Sitting (Post-Dialysis) 152/83 mmHg Concurrent Access: falseAV Fistula Upper Arm (Left) Arterial Sitting Heart Rate Pre-Dialysis 108 BPM BP Standi ng (Post-Dialysis) 120/76 mmHg Temperature Pre-Dialysis 97 degF Sitting Heart Ra te Post-Dialysis 102 BPM Standing Heart Rate Post-Carla lysis 96 BPM Temperature Post-Dialysis 97 degF September 19, 2024 In-Center Hemodialysis Treatment 7512-14-99K76:28:17.000Z 2154-38-47F20:57:17.000Z BP Sitting (Pre-Dialysis) 102/74 mmHg BP Sitting (Post-Dialysis) 123/75 mmHg Concurrent Access: falseAV Fistula Upper Arm (Left) Arterial BP Standing (Pre-Dialysis) 111/76 mmHg Sitting Heart Rate Post-Dialysis 90 BPM Sitting Heart Rate Pre-Dialysis 96 BPM Standing Heart Rate Pre-Dialysis 101 BPM Temperature Pre-Dialysis 97 degF September 17, 2024 In-Center Hemodialysis Treatment 7405-55-76F91:27:03.000Z 3942-62-86W62:56:02.000Z BP Sitting (Pre-Dialysis) 114/69 mmHg BP Sitting (Post-Dialysis) 114/66 mmHg Concurrent Access: falseAV Fistula Upper Arm (Left) Arterial BP Standing (Pre-Dialysis) 124/80 mmHg BP Standing (P ost-Dialysis) 129/89 mmHg Sitting Heart Rate Pre-Dialysis 97 BPM Sitting Heart Rate Post-Dialysis 97 BPM Standing Heart Rate Pre-Dialysis 104 BPM Standing Heart Rate Post-Dialysis 101 BPM Temperature Pre-Dialysis 97.6 degF Temperature Post -Dialysis 97.6 degF September 15, 2024 In-Center Hemodialysis Treatment Concurrent Access: false September 15, 2024 In-Center Hemodialysis Treatment 202 5-0 4-1 4T1 6:1 8:0 0.0 00Z 202 5-0 4-1 4T1 9:5 3:0 0.0 00Z BP Sitting (Pre-Dialy sis) 130/97 mmHg BP Sitting (Post-Dial ysis) 128/75 mmHg Concurrent Access: falseAV Fistula Upper Arm (Left) Arterial BP Standing (Pre-Dialysis) 133/81 mmHg Sitting Heart Rate Post-Dialysis 95 BPM Sitting Heart Rate Pre-Dialysis 86 BPM Standing Heart Rate Pre-Dialysis 87 BPM September 12, 2024 In-Center Hemodialysis Treatment 7163-57-63K42:07:02.000Z 4402-82-79L59:34:03.000Z BP Sitting (Pre-Dialysis) 118/72 mmHg BP Sitting (Post-Dialysis) 125/80 mmHg Concurrent Access: falseAV Fistula Upper Arm (Left) Arterial BP Standing (Pre-Dialysis) 132/102 mmHg BP Standing (P ost-Dialysis) 130/72 mmHg Sitting Heart Rate Pre-Dialysis 93 BPM Sitting Heart Rate Post-Dialysis 91 BPM Standing Heart Rate Pre-Dialysis 111 BPM Standing Heart Rate Post-Dialysis 107 BPM Temperature Pre-Dialysis 97.1 degF Temperature Post -Dialysis 97.3 degF September 10, 2024 In-Center Hemodialysis Treatment 6808-56-24M95:35:30.000Z 5872-29-31O80:51:29.000Z BP Sitting (Pre-Dialysis) 162/75 mmHg BP Sitting (Post-Dialysis) 144/84 mmHg Concurrent Access: falseAV Fistula Upper Arm (Left) Arterial BP Standing (Pre-Dialysis) 141/80 mmHg BP Standing (P ost-Dialysis) 136/86 mmHg Sitting Heart Rate Pre-Dialysis 70 BPM Sitting Heart Rate Post-Dialysis 88 BPM Standing Heart Rate Pre-Dialysis 102 BPM Standing Heart Rate Post-Dialysis 98 BPM Temperature Pre-Dialysis 97 degF September 08, 2024 In-Center Hemodialysis Treatment 3218-73-71P63:09:56.000Z 7767-67-34E67:43:56.000Z BP Sitting (Pre-Dialysis) 119/64 mmHg BP Sitting (Post-Dialysis) 136/80 mmHg Concurrent Access: falseAV Fistula Upper Arm (Left) Arterial BP Standing (Pre-Dialysis) 117/65 mmHg BP Standing (P ost-Dialysis) 152/88 mmHg Sitting Heart Rate Pre-Dialysis 82 BPM Sitting Heart Rate Post-Dialysis 87 BPM Standing Heart Rate Pre-Dialysis 83 BPM Standing Heart Rate Post-Dialysis 54 BPM Temperature Pre-Dialysis 97 degF Temperature Post -Dialysis 97 degF September 05, 2024 In-Center Hemodialysis Treatment 9767-02-06T87:23:07.000Z 5242-84-21S70:02:08.000Z BP Sitting (Pre-Dialysis) 138/101 mmHg BP Sitting (Post-Dialysis) 140/92 mmHg Concurrent Access: falseAV Fistula Upper Arm (Left) Arterial Sitting Heart Rate Pre-Dialysis 87 BPM BP Standi ng (Post-Dialysis) 153/103 mmHg Temperature Pre-Dialysis 97 degF Sitting Heart Ra te Post-Dialysis 87 BPM Standing Heart Rate Post-Carla lysis 102 BPM Temperature Post-Dialysis 97 .2 degF September 03, 2024 In-Center Hemodialysis Treatment 6937-27-50T64:18:00.000Z 2174-43-90D50:56:00.000Z BP Sitting (Pre-Dialysis) 164/81 mmHg BP Sitting (Post-Dialysis) 131/93 mmHg Concurrent Access: falseAV Fistula Upper Arm (Left) Arterial BP Standing (Pre-Dialysis) 131/98 mmHg BP Standing (P ost-Dialysis) 164/81 mmHg Sitting Heart Rate Pre-Dialysis 90 BPM Sitting Heart Rate Post-Dialysis 78 BPM Standing Heart Rate Pre-Dialysis 78 BPM Standing Heart Rate Post-Dialysis 90 BPM September 01, 2024 In-Center Hemodialysis Treatment 0997-64-50U77:25:48.000Z 2541-89-76Q04:02:48.000Z BP Sitting (Pre-Dialysis) 101/80 mmHg BP Sitting (Post-Dialysis) 120/63 mmHg Concurrent Access: falseAV Fistula Upper Arm (Left) Arterial BP Standing (Pre-Dialysis) 107/75 mmHg BP Standing (P ost-Dialysis) 114/81 mmHg Sitting Heart Rate Pre-Dialysis 99 BPM Sitting Heart Rate Post-Dialysis 76 BPM Standing Heart Rate Pre-Dialysis 108 BPM Standing Heart Rate Post-Dialysis 105 BPM Temperature Pre-Dialysis 97 degF Temperature Post -Dialysis 97 degF August 29, 2024 In-Center Hemodialysis Treatment 5767-86-65C82:16:12.000Z 0904-71-47U78:54:11.000Z BP Sitting (Pre-Dialysis) 121/72 mmHg BP Sitting (Post-Dialysis) 129/72 mmHg Concurrent Access: falseAV Fistula Upper Arm (Left) Arterial Sitting Heart Rate Pre-Dialysis 100 BPM BP Standi ng (Post-Dialysis) 133/77 mmHg Temperature Pre-Dialysis 97 degF Sitting Heart Ra te Post-Dialysis 89 BPM Standing Heart Rate Post-Carla lysis 92 BPM Temperature Post-Dialysis 97 degF August 27, 2024 In-Center Hemodialysis Treatment 5798-91-48B29:23:07.000Z 2785-59-58G02:52:06.000Z BP Sitting (Pre-Dialysis) 121/85 mmHg BP Sitting (Post-Dialysis) 143/79 mmHg Concurrent Access: falseAV Fistula Upper Arm (Left) Arterial BP Standing (Pre-Dialysis) 144/94 mmHg BP Standing (P ost-Dialysis) 154/87 mmHg Sitting Heart Rate Pre-Dialysis 102 BPM Sitting Heart Rate Post-Dialysis 102 BPM Standing Heart Rate Pre-Dialysis 100 BPM Standing Heart Rate Post-Dialysis 114 BPM Temperature Pre-Dialysis 97.6 degF Temperature Post -Dialysis 97.8 degF August 25, 2024 In-Center Hemodialysis Treatment 3349-22-55B00:28:33.000Z 1799-47-68L68:00:34.000Z BP Sitting (Pre-Dialysis) 127/58 mmHg BP Sitting (Post-Dialysis) 112/67 mmHg Concurrent Access: falseAV Fistula Upper Arm (Left) Arterial BP Standing (Pre-Dialysis) 132/77 mmHg Sitting Heart Rate Post-Dialysis 104 BPM Sitting Heart Rate Pre-Dialysis 86 BPM Temperatu re Post-Dialysis 97 degF Standing Heart Rate Pre-Dialysis 93 BPM Temperature Pre-Dialysis 97 degF August 22, 2024 In-Center Hemodialysis Treatment 1048-99-89D97:56:44.000Z 6296-14-28F53:01:44.000Z BP Sitting (Pre-Dialysis) 128/77 mmHg BP Sitting (Post-Dialysis) 145/88 mmHg Concurrent Access: falseAV Fistula Upper Arm (Left) Arterial Sitting Heart Rate Pre-Dialysis 98 BPM Sitting H eart Rate Post-Dialysis 100 BPM Temperature Pre-Dialysis 97.4 degF August 20, 2024 In-Center Hemodialysis Treatment 9240-77-43U44:22:49.000Z 3776-70-44K51:47:50.000Z BP Sitting (Pre-Dialysis) 102/67 mmHg BP Sitting (Post-Dialysis) 111/63 mmHg Concurrent Access: falseAV Fistula Upper Arm (Left) Arterial Sitting Heart Rate Pre-Dialysis 96 BPM BP Standi ng (Post-Dialysis) 105/60 mmHg Temperature Pre-Dialysis 97 degF Sitting Heart Ra te Post-Dialysis 91 BPM Standing Heart Rate Post-Carla lysis 114 BPM Temperature Post-Dialysis 97 degF August 18, 2024 In-Center Hemodialysis Treatment [id number]:56:54.000Z [id number]:35:55.000Z BP Sitting (Pre-Dialysis) 101/70 mmHg BP Sitting (Post-Dialysis) 131/74 mmHg Concurrent Access: falseAV Fistula Upper Arm (Left) Arterial BP Standing (Pre-Dialysis) 123/76 mmHg BP Standing (P ost-Dialysis) 115/76 mmHg Sitting Heart Rate Pre-Dialysis 97 BPM Sitting Heart Rate Post-Dialysis 71 BPM Standing Heart Rate Pre-Dialysis 97 BPM Standing Heart Rate Post-Dialysis 112 BPM Temperature Pre-Dialysis 97 degF Temperature Post -Dialysis 97 degF August 13, 2024 In-Center Hemodialysis Treatment [id number]:19:22.000Z [id number]:55:21.000Z BP Sitting (Pre-Dialysis) 108/84 mmHg BP Sitting (Post-Dialysis) 124/76 mmHg Concurrent Access: falseAV Fistula Upper Arm (Left) Arterial BP Standing (Pre-Dialysis) 134/88 mmHg BP Standing (P ost-Dialysis) 127/92 mmHg Sitting Heart Rate Pre-Dialysis 99 BPM Sitting Heart Rate Post-Dialysis 103 BPM Standing Heart Rate Pre-Dialysis 99 BPM Standing Heart Rate Post-Dialysis 110 BPM Temperature Pre-Dialysis 97 degF Temperature Post -Dialysis 97 degF August 11, 2024 In-Center Hemodialysis Treatment [id number]:21:49.000Z [id number]:58:49.000Z BP Sitting (Pre-Dialysis) 128/76 mmHg BP Sitting (Post-Dialysis) 116/76 mmHg Concurrent Access: falseAV Fistula Upper Arm (Left) Arterial BP Standing (Pre-Dialysis) 117/72 mmHg BP Standing (P ost-Dialysis) 118/83 mmHg Sitting Heart Rate Pre-Dialysis 104 BPM Sitting Heart Rate Post-Dialysis 97 BPM Standing Heart Rate Pre-Dialysis 113 BPM Standing Heart Rate Post-Dialysis 106 BPM Temperature Pre-Dialysis 97 degF Temperature Post -Dialysis 97 degF August 08, 2024 In-Center Hemodialysis Treatment [id number]:30:00.000Z [id number]:02:03.000Z BP Sitting (Pre-Dialysis) 96/53 mmHg BP Sitting (Post-Dialysis) 139/84 mmHg Concurrent Access: falseAV Fistula Upper Arm (Left) Arterial BP Standing (Pre-Dialysis) 106/61 mmHg BP Standing (P ost-Dialysis) 136/90 mmHg Sitting Heart Rate Pre-Dialysis 109 BPM Sitting Heart Rate Post-Dialysis 84 BPM Standing Heart Rate Pre-Dialysis 100 BPM Standing Heart Rate Post-Dialysis 102 BPM Temperature Pre-Dialysis 97.4 degF Temperature Post -Dialysis 97.4 degF August 06, 2024 In-Center Hemodialysis Treatment [id number]:48:44.000Z [id number]:11:43.000Z BP Sitting (Pre-Dialysis) 114/91 mmHg BP Sitting (Post-Dialysis) 116/86 mmHg Concurrent Access: falseAV Fistula Upper Arm (Left) Arterial BP Standing (Pre-Dialysis) 118/78 mmHg BP Standing (P ost-Dialysis) 130/82 mmHg Sitting Heart Rate Pre-Dialysis 59 BPM Sitting Heart Rate Post-Dialysis 92 BPM Standing Heart Rate Pre-Dialysis 102 BPM Standing Heart Rate Post-Dialysis 107 BPM Temperature Pre-Dialysis 97 degF Temperature Post -Dialysis 97 degF August 04, 2024 In-Center Hemodialysis Treatment [id number]:11:11.000Z [id number]:43:10.000Z BP Sitting (Pre-Dialysis) 138/75 mmHg BP Sitting (Post-Dialysis) 107/68 mmHg Concurrent Access: falseAV Fistula Upper Arm (Left) Arterial BP Standing (Pre-Dialysis) 125/69 mmHg BP Standing (P ost-Dialysis) 117/73 mmHg Sitting Heart Rate Pre-Dialysis 84 BPM Sitting Heart Rate Post-Dialysis 103 BPM Standing Heart Rate Pre-Dialysis 98 BPM Standing Heart Rate Post-Dialysis 80 BPM Temperature Pre-Dialysis 98.3 degF Temperature Post -Dialysis 97 degF August 02, 2024 In-Center Hemodialysis Treatment [id number]:49:32.000Z [id number]:36:12.000Z BP Sitting (Pre-Dialysis) 125/72 mmHg BP Sitting (Post-Dialysis) 140/72 mmHg Concurrent Access: falseAV Fistula Upper Arm (Left) Arterial BP Standing (Pre-Dialysis) 133/75 mmHg BP Standing (P ost-Dialysis) 119/66 mmHg Sitting Heart Rate Pre-Dialysis 93 BPM Sitting Heart Rate Post-Dialysis 98 BPM Standing Heart Rate Pre-Dialysis 101 BPM Standing Heart Rate Post-Dialysis 110 BPM Temperature Pre-Dialysis 98.3 degF Temperature Post -Dialysis 97.6 degF July 31, 2024 In-Center Hemodialysis Treatment [id number]:07:13.000Z [id number]:51:48.000Z BP Sitting (Pre-Dialysis) 125/75 mmHg BP Sitting (Post-Dialysis) 130/75 mmHg Concurrent Access: falseAV Fistula Upper Arm (Left) Arterial BP Standing (Pre-Dialysis) 133/87 mmHg Sitti ng Heart Rate Post-Dialysis 93 BPM Sitting Heart Rate Pre-Dialysis 87 BPM Temperatu re Post-Dialysis 97.5 degF Standing Heart Rate Pre-Dialysis 98 BPM Temperature Pre-Dialysis 98 degF July 29, 2024 In-Center Hemodialysis Treatment [id number]:32:54.000Z [id number]:18:19.000Z BP Sitting (Pre-Dialysis) 137/78 mmHg BP Sitting (Post-Dialysis) 138/92 mmHg Concurrent Access: falseAV Fistula Upper Arm (Left) Arterial BP Standing (Pre-Dialysis) 127/60 mmHg Sitti ng Heart Rate Post-Dialysis 104 BPM Sitting Heart Rate Pre-Dialysis 80 BPM Temperatu re Post-Dialysis 98.2 degF Standing Heart Rate Pre-Dialysis 79 BPM Temperature Pre-Dialysis 97.8 degF July 26, 2024 In-Center Hemodialysis Treatment [id number]:22:38.000Z [id number]:08:28.000Z BP Sitting (Pre-Dialysis) 158/87 mmHg BP Sitting (Post-Dialysis) 127/52 mmHg Concurrent Access: falseAV Fistula Upper Arm (Left) Arterial BP Standing (Pre-Dialysis) 153/95 mmHg Sitti ng Heart Rate Post-Dialysis 103 BPM Sitting Heart Rate Pre-Dialysis 90 BPM Temperatu re Post-Dialysis 97.5 degF Standing Heart Rate Pre-Dialysis 92 BPM Temperature Pre-Dialysis 97.6 degF July 24, 2024 In-Center Hemodialysis Treatment [id number]:28:57.000Z [id number]:14:22.000Z BP Sitting (Pre-Dialysis) 165/95 mmHg BP Sitting (Post-Dialysis) 134/79 mmHg Concurrent Access: falseAV Fistula Upper Arm (Left) Arterial BP Standing (Pre-Dialysis) 159/106 mmHg BP Standing (P ost-Dialysis) 161/89 mmHg Sitting Heart Rate Pre-Dialysis 89 BPM Sitting Heart Rate Post-Dialysis 98 BPM Standing Heart Rate Pre-Dialysis 93 BPM Standing Heart Rate Post-Dialysis 130 BPM Temperature Pre-Dialysis 98 degF Temperature Post -Dialysis 97.8 degF July 22, 2024 In-Center Hemodialysis Treatment [id number]:08:06.000Z 5422-84-03E16:32:16.000Z BP Sitting (Pre-Dialysis) 173/109 mmHg BP Sitting (Post-Dialysis) 174/98 mmHg Concurrent Access: falseAV Fistula Upper Arm (Left) Arterial BP Standing (Pre-Dialysis) 182/111 mmHg BP Standing (P ost-Dialysis) 164/82 mmHg Sitting Heart Rate Pre-Dialysis 81 BPM Sitting Heart Rate Post-Dialysis 94 BPM Standing Heart Rate Pre-Dialysis 85 BPM Standing Heart Rate Post-Dialysis 97 BPM Temperature Pre-Dialysis 97.7 degF Temperature Post -Dialysis 97.3 degF July 19, 2024 In-Center Hemodialysis Treatment [id number]:21:47.000Z [id number]:03:52.000Z BP Sitting (Pre-Dialysis) 129/64 mmHg BP Sitting (Post-Dialysis) 157/77 mmHg Concurrent Access: falseAV Fistula Upper Arm (Left) Arterial BP Standing (Pre-Dialysis) 126/68 mmHg BP Standing (P ost-Dialysis) 144/62 mmHg Sitting Heart Rate Pre-Dialysis 95 BPM Sitting Heart Rate Post-Dialysis 92 BPM Standing Heart Rate Pre-Dialysis 93 BPM Standing Heart Rate Post-Dialysis 92 BPM Temperature Pre-Dialysis 98.7 degF Temperature Post -Dialysis 97.8 degF July 17, 2024 In-Center Hemodialysis Treatment [id number]:19:17.000Z 8817-04-82Z52:01:22.000Z BP Sitting (Pre-Dialysis) 126/76 mmHg BP Sitting (Post-Dialysis) 123/76 mmHg Concurrent Access: falseAV Fistula Upper Arm (Left) Arterial BP Standing (Pre-Dialysis) 118/70 mmHg BP Standing (P ost-Dialysis) 115/68 mmHg Sitting Heart Rate Pre-Dialysis 98 BPM Sitting Heart Rate Post-Dialysis 91 BPM Standing Heart Rate Pre-Dialysis 108 BPM Standing Heart Rate Post-Dialysis 109 BPM Temperature Pre-Dialysis 98 degF Temperature Post -Dialysis 97.4 degF July 15, 2024 In-Center Hemodialysis Treatment [id number]:02:00.000Z 6264-28-74I53:32:25.000Z BP Sitting (Pre-Dialysis) 163/95 mmHg BP Sitting (Post-Dialysis) 132/81 mmHg Concurrent Access: falseAV Fistula Upper Arm (Left) Arterial BP Standing (Pre-Dialysis) 156/98 mmHg BP Standing (P ost-Dialysis) 118/78 mmHg Sitting Heart Rate Pre-Dialysis 82 BPM Sitting Heart Rate Post-Dialysis 96 BPM Standing Heart Rate Pre-Dialysis 89 BPM Standing Heart Rate Post-Dialysis 104 BPM Temperature Pre-Dialysis 98.8 degF Temperature Post -Dialysis 98.1 degF July 12, 2024 In-Center Hemodialysis Treatment [id number]:08:27.000Z [id number]:52:37.000Z BP Sitting (Pre-Dialysis) 116/70 mmHg BP Sitting (Post-Dialysis) 128/82 mmHg Concurrent Access: falseAV Fistula Upper Arm (Left) Arterial BP Standing (Pre-Dialysis) 125/70 mmHg Sitti ng Heart Rate Post-Dialysis 99 BPM Sitting Heart Rate Pre-Dialysis 89 BPM Temperatu re Post-Dialysis 98.3 degF Standing Heart Rate Pre-Dialysis 95 BPM Temperature Pre-Dialysis 97.9 degF July 10, 2024 In-Center Hemodialysis Treatment 6810-31-38L92:10:29.000Z [id number]:56:19.000Z BP Sitting (Pre-Dialysis) 142/88 mmHg BP Sitting (Post-Dialysis) 123/85 mmHg Concurrent Access: falseAV Fistula Upper Arm (Left) Arterial BP Standing (Pre-Dialysis) 151/93 mmHg Sitti ng Heart Rate Post-Dialysis 99 BPM Sitting Heart Rate Pre-Dialysis 89 BPM Temperatu re Post-Dialysis 98.1 degF Standing Heart Rate Pre-Dialysis 97 BPM Temperature Pre-Dialysis 98.1 degF July 09, 2024 In-Center Hemodialysis Treatment [id number]:58:00.000Z 4709-28-52V30:29:30.000Z BP Sitting (Pre-Dialysis) 139/78 mmHg BP Sitting (Post-Dialysis) 130/97 mmHg Concurrent Access: falseAV Fistula Upper Arm (Left) Arterial BP Standing (Pre-Dialysis) 145/84 mmHg Sitti ng Heart Rate Post-Dialysis 99 BPM Sitting Heart Rate Pre-Dialysis 78 BPM Temperatu re Post-Dialysis 97.4 degF Standing Heart Rate Pre-Dialysis 75 BPM Temperature Pre-Dialysis 97.8 degF July 05, 2024 In-Center Hemodialysis Treatment [id number]:25:44.000Z 3906-93-17P52:08:39.000Z BP Sitting (Pre-Dialysis) 135/82 mmHg BP Sitting (Post-Dialysis) 154/88 mmHg Concurrent Access: falseAV Fistula Upper Arm (Left) Arterial BP Standing (Pre-Dialysis) 127/91 mmHg Sitti ng Heart Rate Post-Dialysis 99 BPM Sitting Heart Rate Pre-Dialysis 85 BPM Temperatu re Post-Dialysis 97.2 degF Standing Heart Rate Pre-Dialysis 95 BPM Temperature Pre-Dialysis 97.8 degF July 03, 2024 In-Center Hemodialysis Treatment [id number]:23:53.000Z 3548-57-40Y76:07:38.000Z BP Sitting (Pre-Dialysis) 159/87 mmHg BP Sitting (Post-Dialysis) 132/81 mmHg Concurrent Access: falseAV Fistula Upper Arm (Left) Arterial BP Standing (Pre-Dialysis) 160/99 mmHg Sitti ng Heart Rate Post-Dialysis 89 BPM Sitting Heart Rate Pre-Dialysis 90 BPM Temperatu re Post-Dialysis 97.4 degF Standing Heart Rate Pre-Dialysis 92 BPM Temperature Pre-Dialysis 97.6 degF July 01, 2024 In-Center Hemodialysis Treatment 7325-13-76X99:14:59.000Z 8873-27-43Y60:14:09.000Z BP Sitting (Pre-Dialysis) 118/66 mmHg BP Sitting (Post-Dialysis) 126/76 mmHg Concurrent Access: falseAV Fistula Upper Arm (Left) Arterial BP Standing (Pre-Dialysis) 128/66 mmHg BP Standing (P ost-Dialysis) 135/79 mmHg Sitting Heart Rate Pre-Dialysis 103 BPM Sitting Heart Rate Post-Dialysis 102 BPM Standing Heart Rate Pre-Dialysis 105 BPM Standing Heart Rate Post-Dialysis 111 BPM Temperature Pre-Dialysis 97.8 degF Temperature Post -Dialysis 97.8 degF June 24, 2024 In-Center Hemodialysis Treatment 4593-63-81T31:19:22.000Z [id number]:35:12.000Z BP Sitting (Pre-Dialysis) 159/89 mmHg BP Sitting (Post-Dialysis) 162/97 mmHg Concurrent Access: falseAV Fistula Upper Arm (Left) Arterial BP Standing (Pre-Dialysis) 146/87 mmHg Sitti ng Heart Rate Post-Dialysis 95 BPM Sitting Heart Rate Pre-Dialysis 86 BPM Temperatu re Post-Dialysis 97.2 degF Standing Heart Rate Pre-Dialysis 97 BPM Temperature Pre-Dialysis 97.8 degF June 21, 2024 In-Center Hemodialysis Treatment 3049-25-83S21:12:33.000Z 2899-89-59J41:55:53.000Z BP Sitting (Pre-Dialysis) 140/85 mmHg BP Sitting (Post-Dialysis) 157/85 mmHg Concurrent Access: falseAV Fistula Upper Arm (Left) Arterial BP Standing (Pre-Dialysis) 137/89 mmHg Sitti ng Heart Rate Post-Dialysis 90 BPM Sitting Heart Rate Pre-Dialysis 99 BPM Temperatu re Post-Dialysis 97.2 degF Standing Heart Rate Pre-Dialysis 98 BPM Temperature Pre-Dialysis 97.2 degF June 19, 2024 In-Center Hemodialysis Treatment 3540-97-54Z61:10:06.000Z 7732-09-01U30:50:56.000Z BP Sitting (Pre-Dialysis) 164/101 mmHg BP Sitting (Post-Dialysis) 140/81 mmHg Concurrent Access: falseAV Fistula Upper Arm (Left) Arterial BP Standing (Pre-Dialysis) 155/95 mmHg Sitti ng Heart Rate Post-Dialysis 95 BPM Sitting Heart Rate Pre-Dialysis 83 BPM Temperatu re Post-Dialysis 97.3 degF Standing Heart Rate Pre-Dialysis 97 BPM Temperature Pre-Dialysis 97.3 degF June 17, 2024 In-Center Hemodialysis Treatment 8886-10-92A00:12:00.000Z 6686-39-07E22:57:50.000Z BP Sitting (Pre-Dialysis) 135/86 mmHg BP Sitting (Post-Dialysis) 126/72 mmHg Concurrent Access: falseAV Fistula Upper Arm (Left) Arterial BP Standing (Pre-Dialysis) 133/82 mmHg Sitti ng Heart Rate Post-Dialysis 99 BPM Sitting Heart Rate Pre-Dialysis 90 BPM Temperatu re Post-Dialysis 97.7 degF Standing Heart Rate Pre-Dialysis 97 BPM Temperature Pre-Dialysis 97.5 degF June 14, 2024 In-Center Hemodialysis Treatment [id number]:16:17.000Z 5300-49-53R90:02:07.000Z BP Sitting (Pre-Dialysis) 134/85 mmHg BP Sitting (Post-Dialysis) 144/86 mmHg Concurrent Access: falseAV Fistula Upper Arm (Left) Arterial BP Standing (Pre-Dialysis) 143/91 mmHg Sitti ng Heart Rate Post-Dialysis 92 BPM Sitting Heart Rate Pre-Dialysis 100 BPM Temperatu re Post-Dialysis 98.1 degF Standing Heart Rate Pre-Dialysis 101 BPM Temperature Pre-Dialysis 98 degF June 12, 2024 In-Center Hemodialysis Treatment 6877-17-13G19:23:00.000Z 5009-78-94P82:11:13.000Z BP Sitting (Pre-Dialysis) 118/71 mmHg BP Sitting (Post-Dialysis) 146/88 mmHg Concurrent Access: falseAV Fistula Upper Arm (Left) Arterial BP Standing (Pre-Dialysis) 121/68 mmHg Sitti ng Heart Rate Post-Dialysis 95 BPM Sitting Heart Rate Pre-Dialysis 93 BPM Temperatu re Post-Dialysis 97.9 degF Standing Heart Rate Pre-Dialysis 102 BPM Temperature Pre-Dialysis 97.8 degF June 10, 2024 In-Center Hemodialysis Treatment 1937-05-24B64:11:10.000Z 2270-32-15R22:42:56.000Z BP Sitting (Pre-Dialysis) 138/87 mmHg BP Sitting (Post-Dialysis) 146/89 mmHg Concurrent Access: falseAV Fistula Upper Arm (Left) Arterial BP Standing (Pre-Dialysis) 155/102 mmHg BP Standing (P ost-Dialysis) 157/95 mmHg Sitting Heart Rate Pre-Dialysis 84 BPM Sitting Heart Rate Post-Dialysis 93 BPM Standing Heart Rate Pre-Dialysis 86 BPM Standing Heart Rate Post-Dialysis 89 BPM Temperature Pre-Dialysis 97.7 degF Temperature Post -Dialysis 98.1 degF June 07, 2024 In-Center Hemodialysis Treatment [id number]:11:28.000Z 9831-39-72O47:54:48.000Z BP Sitting (Pre-Dialysis) 167/92 mmHg BP Sitting (Post-Dialysis) 164/98 mmHg Concurrent Access: falseAV Fistula Upper Arm (Left) Arterial BP Standing (Pre-Dialysis) 183/109 mmHg Sitti ng Heart Rate Post-Dialysis 90 BPM Sitting Heart Rate Pre-Dialysis 92 BPM Temperatu re Post-Dialysis 97.4 degF Standing Heart Rate Pre-Dialysis 94 BPM Temperature Pre-Dialysis 98.2 degF June 05, 2024 In-Center Hemodialysis Treatment 4562-62-23U79:40:12.000Z 1845-27-16D40:27:42.000Z BP Sitting (Pre-Dialysis) 138/80 mmHg BP Sitting (Post-Dialysis) 139/65 mmHg Concurrent Access: falseAV Fistula Upper Arm (Left) Arterial Sitting Heart Rate Pre-Dialysis 92 BPM BP Standing (Post-Dialysis) 149/75 mmHg Temperature Pre-Dialysis 97.9 degF Sitting Heart Ra te Post-Dialysis 93 BPM Standing Heart Rate Post-Caral lysis 95 BPM Temperature Post-Dialysis 97 .5 degF June 03, 2024 In-Center Hemodialysis Treatment [id number]:37:32.000Z 4429-73-66V54:22:44.000Z BP Sitting (Pre-Dialysis) 140/85 mmHg BP Sitting (Post-Dialysis) 146/87 mmHg Concurrent Access: falseAV Fistula Upper Arm (Left) Arterial BP Standing (Pre-Dialysis) 141/88 mmHg BP Standing (P ost-Dialysis) 143/91 mmHg Sitting Heart Rate Pre-Dialysis 89 BPM Sitting Heart Rate Post-Dialysis 90 BPM Standing Heart Rate Pre-Dialysis 80 BPM Standing Heart Rate Post-Dialysis 114 BPM Temperature Pre-Dialysis 97.2 degF Temperature Post -Dialysis 97.4 degF May 31, 2024 In-Center Hemodialysis Treatment [id number]:25:02.000Z 0492-69-66R02:07:57.000Z BP Sitting (Pre-Dialysis) 157/83 mmHg BP Sitting (Post-Dialysis) 144/85 mmHg Concurrent Access: falseAV Fistula Upper Arm (Left) Arterial BP Standing (Pre-Dialysis) 162/87 mmHg Sitti ng Heart Rate Post-Dialysis 87 BPM Sitting Heart Rate Pre-Dialysis 84 BPM Temperatu re Post-Dialysis 97.2 degF Standing Heart Rate Pre-Dialysis 96 BPM Temperature Pre-Dialysis 98.2 degF May 29, 2024 In-Center Hemodialysis Treatment 4710-27-79S20:09:32.000Z 6614-25-50L51:54:57.000Z BP Sitting (Pre-Dialysis) 156/88 mmHg BP Sitting (Post-Dialysis) 121/70 mmHg Concurrent Access: falseAV Fistula Upper Arm (Left) Arterial BP Standing (Pre-Dialysis) 153/97 mmHg Sitti ng Heart Rate Post-Dialysis 92 BPM Sitting Heart Rate Pre-Dialysis 99 BPM Temperatu re Post-Dialysis 97.8 degF Standing Heart Rate Pre-Dialysis 103 BPM Temperature Pre-Dialysis 97.2 degF May 27, 2024 In-Center Hemodialysis Treatment [id number]:28:42.000Z 7867-55-51H60:14:07.000Z BP Sitting (Pre-Dialysis) 159/87 mmHg BP Sitting (Post-Dialysis) 164/73 mmHg Concurrent Access: falseAV Fistula Upper Arm (Left) Arterial Sitting Heart Rate Pre-Dialysis 89 BPM BP Standing (Post-Dialysis) 146/88 mmHg Temperature Pre-Dialysis 98.5 degF Sitting Heart Ra te Post-Dialysis 93 BPM Standing Heart Rate Post-Carla lysis 113 BPM Temperature Post-Dialysis 98 .2 degF May 24, 2024 In-Center Hemodialysis Treatment [id number]:30:00.000Z 5098-94-01H75:20:37.000Z BP Sitting (Pre-Dialysis) 141/88 mmHg BP Sitting (Post-Dialysis) 144/83 mmHg Concurrent Access: falseAV Fistula Upper Arm (Left) Arterial BP Standing (Pre-Dialysis) 149/96 mmHg BP Standing (P ost-Dialysis) 158/86 mmHg Sitting Heart Rate Pre-Dialysis 89 BPM Sitting Heart Rate Post-Dialysis 89 BPM Standing Heart Rate Pre-Dialysis 93 BPM Standing Heart Rate Post-Dialysis 100 BPM Temperature Pre-Dialysis 98.1 degF Temperature Post -Dialysis 98.3 degF May 22, 2024 In-Center Hemodialysis Treatment 6011-06-68M01:22:12.000Z 3081-41-16H06:50:57.000Z BP Sitting (Pre-Dialysis) 148/80 mmHg BP Sitting (Post-Dialysis) 166/67 mmHg Concurrent Access: falseAV Fistula Upper Arm (Left) Arterial BP Standing (Pre-Dialysis) 141/86 mmHg Sitti ng Heart Rate Post-Dialysis 97 BPM Sitting Heart Rate Pre-Dialysis 89 BPM Temperatu re Post-Dialysis 98.2 degF Standing Heart Rate Pre-Dialysis 83 BPM Temperature Pre-Dialysis 97.2 degF May 20, 2024 In-Center Hemodialysis Treatment [id number]:17:43.000Z 3123-81-19F55:55:13.000Z BP Sitting (Pre-Dialysis) 148/90 mmHg BP Sitting (Post-Dialysis) 179/94 mmHg Concurrent Access: falseAV Fistula Upper Arm (Left) Arterial BP Standing (Pre-Dialysis) 149/92 mmHg Sitti ng Heart Rate Post-Dialysis 69 BPM Sitting Heart Rate Pre-Dialysis 87 BPM Temperatu re Post-Dialysis 98.2 degF Standing Heart Rate Pre-Dialysis 85 BPM Temperature Pre-Dialysis 98.2 degF May 17, 2024 In-Center Hemodialysis Treatment [id number]:25:08.000Z 6435-32-17V95:12:38.000Z BP Sitting (Pre-Dialysis) 150/95 mmHg BP Sitting (Post-Dialysis) 129/69 mmHg Concurrent Access: falseAV Fistula Upper Arm (Left) Arterial BP Standing (Pre-Dialysis) 140/86 mmHg Sitti ng Heart Rate Post-Dialysis 101 BPM Sitting Heart Rate Pre-Dialysis 95 BPM Temperatu re Post-Dialysis 97.4 degF Standing Heart Rate Pre-Dialysis 104 BPM Temperature Pre-Dialysis 98.1 degF May 15, 2024 In-Center Hemodialysis Treatment [id number]:38:42.000Z 8914-45-85P98:23:07.000Z BP Sitting (Pre-Dialysis) 149/99 mmHg BP Sitting (Post-Dialysis) 152/79 mmHg Concurrent Access: falseAV Fistula Upper Arm (Left) Arterial Sitting Heart Rate Pre-Dialysis 84 BPM BP Standing (Post-Dialysis) 162/91 mmHg Temperature Pre-Dialysis 98.8 degF Sitting Heart Ra te Post-Dialysis 94 BPM Standing Heart Rate Post-Carla lysis 111 BPM Temperature Post-Dialysis 97 .5 degF May 13, 2024 In-Center Hemodialysis Treatment 1707-16-49R26:41:49.000Z 3742-34-05N97:26:24.000Z BP Sitting (Pre-Dialysis) 181/105 mmHg BP Sitting (Post-Dialysis) 148/86 mmHg Concurrent Access: falseAV Fistula Upper Arm (Left) Arterial Sitting Heart Rate Pre-Dialysis 89 BPM BP Standi ng (Post-Dialysis) 189/110 mmHg Temperature Pre-Dialysis 97 degF Sitting Heart Ra te Post-Dialysis 93 BPM Standing Heart Rate Post-Carla lysis 114 BPM Temperature Post-Dialysis 97 .7 degF May 10, 2024 In-Center Hemodialysis Treatment [id number]:17:28.000Z 9915-74-77D71:02:03.000Z BP Sitting (Pre-Dialysis) 139/59 mmHg BP Sitting (Post-Dialysis) 148/92 mmHg Concurrent Access: falseAV Fistula Upper Arm (Left) Arterial BP Standing (Pre-Dialysis) 152/84 mmHg Sitti ng Heart Rate Post-Dialysis 85 BPM Sitting Heart Rate Pre-Dialysis 86 BPM Temperatu re Post-Dialysis 97.2 degF Standing Heart Rate Pre-Dialysis 83 BPM Temperature Pre-Dialysis 97.7 degF May 08, 2024 In-Center Hemodialysis Treatment 0212-17-15Q34:58:44.000Z 8048-54-34W15:42:54.000Z BP Sitting (Pre-Dialysis) 144/87 mmHg BP Sitting (Post-Dialysis) 161/98 mmHg Concurrent Access: falseAV Fistula Upper Arm (Left) Arterial BP Standing (Pre-Dialysis) 136/90 mmHg BP Standing (P ost-Dialysis) 142/78 mmHg Sitting Heart Rate Pre-Dialysis 80 BPM Sitting Heart Rate Post-Dialysis 85 BPM Standing Heart Rate Pre-Dialysis 83 BPM Standing Heart Rate Post-Dialysis 114 BPM Temperature Pre-Dialysis 97.4 degF Temperature Post -Dialysis 97.6 degF May 06, 2024 In-Center Hemodialysis Treatment [id number]:22:54.000Z 5892-94-76T01:00:49.000Z BP Sitting (Pre-Dialysis) 178/90 mmHg BP Sitting (Post-Dialysis) 119/69 mmHg Concurrent Access: falseAV Fistula Upper Arm (Left) Arterial BP Standing (Pre-Dialysis) 167/97 mmHg Sitti ng Heart Rate Post-Dialysis 80 BPM Sitting Heart Rate Pre-Dialysis 89 BPM Temperatu re Post-Dialysis 98.2 degF Standing Heart Rate Pre-Dialysis 88 BPM Temperature Pre-Dialysis 98.2 degF May 03, 2024 In-Center Hemodialysis Treatment 4270-70-07M15:26:02.000Z 5249-38-46O49:10:37.000Z BP Sitting (Pre-Dialysis) 154/87 mmHg BP Sitting (Post-Dialysis) 148/72 mmHg Concurrent Access: falseAV Fistula Upper Arm (Left) Arterial BP Standing (Pre-Dialysis) 151/100 mmHg BP Standing (P ost-Dialysis) 157/94 mmHg Sitting Heart Rate Pre-Dialysis 90 BPM Sitting Heart Rate Post-Dialysis 98 BPM Standing Heart Rate Pre-Dialysis 94 BPM Standing Heart Rate Post-Dialysis 122 BPM Temperature Pre-Dialysis 98.2 degF Temperature Post -Dialysis 98.1 degF May 01, 2024 In-Center Hemodialysis Treatment [id number]:17:07.000Z 3734-99-62N69:13:22.000Z BP Sitting (Pre-Dialysis) 152/101 mmHg BP Sitting (Post-Dialysis) 142/87 mmHg Concurrent Access: falseAV Fistula Upper Arm (Left) Arterial BP Standing (Pre-Dialysis) 165/104 mmHg Sitti ng Heart Rate Post-Dialysis 95 BPM Sitting Heart Rate Pre-Dialysis 85 BPM Temperatu re Post-Dialysis 97.6 degF Standing Heart Rate Pre-Dialysis 88 BPM Temperature Pre-Dialysis 97.9 degF April 29, 2024 In-Center Hemodialysis Treatment [id number]:40:55.000Z 7677-65-61B25:23:50.000Z BP Sitting (Pre-Dialysis) 131/82 mmHg BP Sitting (Post-Dialysis) 133/78 mmHg Concurrent Access: falseAV Fistula Upper Arm (Left) Arterial Sitting Heart Rate Pre-Dialysis 75 BPM Sitting H eart Rate Post-Dialysis 96 BPM Temperature Pre-Dialysis 97.5 degF Temperature Post -Dialysis 97.6 degF April 26, 2024 In-Center Hemodialysis Treatment [id number]:41:38.000Z 0867-00-96A41:27:03.000Z BP Sitting (Pre-Dialysis) 159/95 mmHg BP Sitting (Post-Dialysis) 168/100 mmHg Concurrent Access: falseAV Fistula Upper Arm (Left) Arterial BP Standing (Pre-Dialysis) 175/96 mmHg BP Standing (P ost-Dialysis) 178/108 mmHg Sitting Heart Rate Pre-Dialysis 90 BPM Sitting Heart Rate Post-Dialysis 86 BPM Standing Heart Rate Pre-Dialysis 86 BPM Standing Heart Rate Post-Dialysis 108 BPM Temperature Pre-Dialysis 97.5 degF Temperature Post -Dialysis 97.8 degF April 24, 2024 In-Center Hemodialysis Treatment 8595-48-72J87:23:40.000Z 9498-01-67E40:04:55.000Z BP Sitting (Pre-Dialysis) 169/100 mmHg BP Sitting (Post-Dialysis) 194/112 mmHg Concurrent Access: falseAV Fistula Upper Arm (Left) Arterial BP Standing (Pre-Dialysis) 174/112 mmHg BP Standing (P ost-Dialysis) 194/96 mmHg Sitting Heart Rate Pre-Dialysis 85 BPM Sitting Heart Rate Post-Dialysis 90 BPM Standing Heart Rate Pre-Dialysis 87 BPM Standing Heart Rate Post-Dialysis 102 BPM Temperature Pre-Dialysis 97.2 degF Temperature Post -Dialysis 97.8 degF April 22, 2024 In-Center Hemodialysis Treatment [id number]:21:01.000Z 4051-90-23L23:56:26.000Z BP Sitting (Pre-Dialysis) 169/89 mmHg BP Sitting (Post-Dialysis) 162/80 mmHg Concurrent Access: falseAV Fistula Upper Arm (Left) Arterial BP Standing (Pre-Dialysis) 147/85 mmHg Sitti ng Heart Rate Post-Dialysis 90 BPM Sitting Heart Rate Pre-Dialysis 84 BPM Temperatu re Post-Dialysis 97.2 degF Standing Heart Rate Pre-Dialysis 83 BPM Temperature Pre-Dialysis 97.2 degF April 19, 2024 In-Center Hemodialysis Treatment [id number]:35:56.000Z [id number]:18:26.000Z BP Sitting (Pre-Dialysis) 147/92 mmHg BP Sitting (Post-Dialysis) 162/87 mmHg Concurrent Access: falseAV Fistula Upper Arm (Left) Arterial BP Standing (Pre-Dialysis) 155/94 mmHg BP Standing (P ost-Dialysis) 171/97 mmHg Sitting Heart Rate Pre-Dialysis 89 BPM Sitting Heart Rate Post-Dialysis 95 BPM Standing Heart Rate Pre-Dialysis 90 BPM Standing Heart Rate Post-Dialysis 115 BPM Temperature Pre-Dialysis 97.2 degF Temperature Post -Dialysis 98.2 degF April 17, 2024 In-Center Hemodialysis Treatment [id number]:30:00.000Z 9562-28-60K12:22:30.000Z BP Sitting (Pre-Dialysis) 152/89 mmHg BP Sitting (Post-Dialysis) 150/85 mmHg Concurrent Access: falseAV Fistula Upper Arm (Left) Arterial BP Standing (Pre-Dialysis) 176/98 mmHg Sitti ng Heart Rate Post-Dialysis 104 BPM Sitting Heart Rate Pre-Dialysis 92 BPM Temperatu re Post-Dialysis 97.4 degF Standing Heart Rate Pre-Dialysis 87 BPM Temperature Pre-Dialysis 98.2 degF April 15, 2024 In-Center Hemodialysis Treatment 2449-73-13E05:48:54.000Z 4721-87-66F34:39:19.000Z BP Sitting (Pre-Dialysis) 144/92 mmHg BP Sitting (Post-Dialysis) 139/86 mmHg Concurrent Access: falseAV Fistula Upper Arm (Left) Arterial Sitting Heart Rate Pre-Dialysis 85 BPM BP Standing (Post-Dialysis) 158/75 mmHg Temperature Pre-Dialysis 98.1 degF Sitting Heart Ra te Post-Dialysis 102 BPM Standing Heart Rate Post-Carla lysis 95 BPM Temperature Post-Dialysis 97 .4 degF April 12, 2024 In-Center Hemodialysis Treatment [id number]:37:55.000Z 9752-33-37U91:22:55.000Z BP Sitting (Pre-Dialysis) 188/111 mmHg BP Sitting (Post-Dialysis) 170/90 mmHg Concurrent Access: falseAV Fistula Upper Arm (Left) Arterial Sitting Heart Rate Pre-Dialysis 88 BPM Sitting H eart Rate Post-Dialysis 100 BPM Temperature Pre-Dialysis 97.9 degF Temperature Post -Dialysis 97.5 degF April 10, 2024 In-Center Hemodialysis Treatment [id number]:42:55.000Z 7265-01-82O02:29:10.000Z BP Sitting (Pre-Dialysis) 119/64 mmHg BP Sitting (Post-Dialysis) 130/60 mmHg Concurrent Access: falseAV Fistula Upper Arm (Left) Arterial Sitting Heart Rate Pre-Dialysis 110 BPM Sitting H eart Rate Post-Dialysis 98 BPM Temperature Pre-Dialysis 97.2 degF Temperature Post -Dialysis 97.2 degF April 08, 2024 In-Center Hemodialysis Treatment 1044-07-53O20:57:53.000Z 4383-92-80I16:58:19.000Z BP Sitting (Pre-Dialysis) 175/101 mmHg BP Sitting (Post-Dialysis) 219/130 mmHg Concurrent Access: falseAV Fistula Upper Arm (Left) Arterial Sitting Heart Rate Pre-Dialysis 93 BPM Sitting H eart Rate Post-Dialysis 83 BPM Temperature Pre-Dialysis 98.2 degF Temperature Post -Dialysis 97.4 degF April 05, 2024 In-Center Hemodialysis Treatment 1620-22-97Q90:51:06.000Z 8020-47-80X49:22:21.000Z BP Sitting (Pre-Dialysis) 151/94 mmHg BP Sitting (Post-Dialysis) 168/102 mmHg Concurrent Access: falseAV Fistula Upper Arm (Left) Arterial BP Standing (Pre-Dialysis) 158/97 mmHg Sitti ng Heart Rate Post-Dialysis 95 BPM Sitting Heart Rate Pre-Dialysis 89 BPM Temperatu re Post-Dialysis 98.2 degF Standing Heart Rate Pre-Dialysis 94 BPM Temperature Pre-Dialysis 98.4 degF April 03, 2024 In-Center Hemodialysis Treatment 2968-05-23G89:40:00.000Z 4419-97-35Q88:25:09.000Z BP Sitting (Pre-Dialysis) 163/97 mmHg BP Sitting (Post-Dialysis) 179/102 mmHg Concurrent Access: falseAV Fistula Upper Arm (Left) Arterial BP Standing (Pre-Dialysis) 162/97 mmHg Sitti ng Heart Rate Post-Dialysis 81 BPM Sitting Heart Rate Pre-Dialysis 87 BPM Temperatu re Post-Dialysis 97.7 degF Standing Heart Rate Pre-Dialysis 85 BPM Temperature Pre-Dialysis 97.6 degF April 01, 2024 In-Center Hemodialysis Treatment 8721-27-61G32:43:00.000Z 7110-64-33M68:26:02.000Z BP Sitting (Pre-Dialysis) 149/101 mmHg BP Sitting (Post-Dialysis) 182/109 mmHg Concurrent Access: falseAV Fistula Upper Arm (Left) Arterial BP Standing (Pre-Dialysis) 162/98 mmHg Sitti ng Heart Rate Post-Dialysis 95 BPM Sitting Heart Rate Pre-Dialysis 86 BPM Temperatu re Post-Dialysis 97.6 degF Standing Heart Rate Pre-Dialysis 85 BPM Temperature Pre-Dialysis 97.5 degF March 29, 2024 In-Center Hemodialysis Treatment 2530-51-42P54:31:46.000Z 0002-60-31E45:20:33.000Z BP Sitting (Pre-Dialysis) 159/90 mmHg BP Sitting (Post-Dialysis) 188/100 mmHg Concurrent Access: falseAV Fistula Upper Arm (Left) Arterial BP Standing (Pre-Dialysis) 161/91 mmHg Sitti ng Heart Rate Post-Dialysis 87 BPM Sitting Heart Rate Pre-Dialysis 68 BPM Temperatu re Post-Dialysis 97.6 degF Standing Heart Rate Pre-Dialysis 69 BPM Temperature Pre-Dialysis 97.2 degF March 27, 2024 In-Center Hemodialysis Treatment [id number]:41:51.000Z 4070-32-17G19:11:26.000Z BP Sitting (Pre-Dialysis) 214/102 mmHg BP Sitting (Post-Dialysis) 205/114 mmHg Concurrent Access: falseAV Fistula Upper Arm (Left) Arterial BP Standing (Pre-Dialysis) 193/114 mmHg BP Standing (P ost-Dialysis) 164/102 mmHg Sitting Heart Rate Pre-Dialysis 82 BPM Sitting Heart Rate Post-Dialysis 90 BPM Standing Heart Rate Pre-Dialysis 95 BPM Standing Heart Rate Post-Dialysis 111 BPM Temperature Pre-Dialysis 98.1 degF Temperature Post -Dialysis 97.7 degF March 25, 2024 In-Center Hemodialysis Treatment 2629-81-91B61:01:24.000Z 7185-48-81J69:30:34.000Z BP Sitting (Pre-Dialysis) 154/96 mmHg BP Sitting (Post-Dialysis) 189/99 mmHg Concurrent Access: falseAV Fistula Upper Arm (Left) Arterial BP Standing (Pre-Dialysis) 176/100 mmHg Sitti ng Heart Rate Post-Dialysis 91 BPM Sitting Heart Rate Pre-Dialysis 59 BPM Temperatu re Post-Dialysis 98.2 degF Standing Heart Rate Pre-Dialysis 56 BPM Temperature Pre-Dialysis 98.2 degF March 22, 2024 In-Center Hemodialysis Treatment [id number]:30:52.000Z 9498-29-14K82:13:47.000Z BP Sitting (Pre-Dialysis) 157/81 mmHg BP Sitting (Post-Dialysis) 174/89 mmHg Concurrent Access: falseAV Fistula Upper Arm (Left) Arterial BP Standing (Pre-Dialysis) 182/95 mmHg BP Standing (P ost-Dialysis) 176/89 mmHg Sitting Heart Rate Pre-Dialysis 91 BPM Sitting Heart Rate Post-Dialysis 97 BPM Standing Heart Rate Pre-Dialysis 97 BPM Standing Heart Rate Post-Dialysis 96 BPM Temperature Pre-Dialysis 97.8 degF Temperature Post -Dialysis 97.8 degF March 20, 2024 In-Center Hemodialysis Treatment 5872-49-02C16:32:01.000Z 6020-23-18V85:17:01.000Z BP Sitting (Pre-Dialysis) 188/113 mmHg BP Sitting (Post-Dialysis) 195/105 mmHg Concurrent Access: falseAV Fistula Upper Arm (Left) Arterial BP Standing (Pre-Dialysis) 190/118 mmHg BP Standing (P ost-Dialysis) 178/101 mmHg Sitting Heart Rate Pre-Dialysis 89 BPM Sitting Heart Rate Post-Dialysis 93 BPM Standing Heart Rate Pre-Dialysis 97 BPM Standing Heart Rate Post-Dialysis 91 BPM Temperature Pre-Dialysis 98.4 degF Temperature Post -Dialysis 97.4 degF March 18, 2024 In-Center Hemodialysis Treatment 7138-41-57C05:19:46.000Z 8165-28-77Z00:03:56.000Z BP Sitting (Pre-Dialysis) 170/91 mmHg BP Sitting (Post-Dialysis) 182/82 mmHg Concurrent Access: falseAV Fistula Upper Arm (Left) Arterial BP Standing (Pre-Dialysis) 173/116 mmHg Sitti ng Heart Rate Post-Dialysis 97 BPM Sitting Heart Rate Pre-Dialysis 81 BPM Temperatu re Post-Dialysis 98.2 degF Standing Heart Rate Pre-Dialysis 88 BPM Temperature Pre-Dialysis 97.8 degF March 15, 2024 In-Center Hemodialysis Treatment 2389-36-66J50:49:00.000Z 3512-79-26B43:40:25.000Z BP Sitting (Pre-Dialysis) 165/96 mmHg BP Sitting (Post-Dialysis) 184/111 mmHg Concurrent Access: falseAV Fistula Upper Arm (Left) Arterial BP Standing (Pre-Dialysis) 163/98 mmHg BP Standing (P ost-Dialysis) 164/86 mmHg Sitting Heart Rate Pre-Dialysis 92 BPM Sitting Heart Rate Post-Dialysis 91 BPM Standing Heart Rate Pre-Dialysis 93 BPM Standing Heart Rate Post-Dialysis 90 BPM Temperature Pre-Dialysis 97.5 degF Temperature Post -Dialysis 97.8 degF March 13, 2024 In-Center Hemodialysis Treatment 3149-37-18R86:26:17.000Z 5182-98-78Y03:09:37.000Z BP Sitting (Pre-Dialysis) 150/90 mmHg BP Sitting (Post-Dialysis) 176/105 mmHg Concurrent Access: falseAV Fistula Upper Arm (Left) Arterial BP Standing (Pre-Dialysis) 154/92 mmHg BP Standing (P ost-Dialysis) 185/104 mmHg Sitting Heart Rate Pre-Dialysis 85 BPM Sitting Heart Rate Post-Dialysis 92 BPM Standing Heart Rate Pre-Dialysis 88 BPM Standing Heart Rate Post-Dialysis 115 BPM Temperature Pre-Dialysis 97.2 degF Temperature Post -Dialysis 97.8 degF March 11, 2024 In-Center Hemodialysis Treatment 4913-35-57T51:30:48.000Z 8538-82-94M58:13:43.000Z BP Sitting (Pre-Dialysis) 178/99 mmHg BP Sitting (Post-Dialysis) 176/90 mmHg Concurrent Access: falseAV Fistula Upper Arm (Left) Arterial BP Standing (Pre-Dialysis) 186/104 mmHg Sitti ng Heart Rate Post-Dialysis 97 BPM Sitting Heart Rate Pre-Dialysis 98 BPM Temperatu re Post-Dialysis 98.2 degF Standing Heart Rate Pre-Dialysis 93 BPM Temperature Pre-Dialysis 98.2 degF March 08, 2024 In-Center Hemodialysis Treatment 2649-23-40Q76:01:57.000Z 2742-91-30L64:44:02.000Z BP Sitting (Pre-Dialysis) 195/98 mmHg BP Sitting (Post-Dialysis) 166/81 mmHg Concurrent Access: falseAV Fistula Upper Arm (Left) Arterial Sitting Heart Rate Pre-Dialysis 102 BPM Sitting H eart Rate Post-Dialysis 92 BPM Temperature Pre-Dialysis 98.2 degF Temperature Post -Dialysis 98.2 degF March 06, 2024 In-Center Hemodialysis Treatment 4514-77-10O27:12:02.000Z 3980-12-21T16:53:17.000Z BP Sitting (Pre-Dialysis) 150/62 mmHg BP Sitting (Post-Dialysis) 157/90 mmHg Concurrent Access: falseAV Fistula Upper Arm (Left) Arterial BP Standing (Pre-Dialysis) 152/59 mmHg Sitti ng Heart Rate Post-Dialysis 79 BPM Sitting Heart Rate Pre-Dialysis 79 BPM Temperatu re Post-Dialysis 98.2 degF Standing Heart Rate Pre-Dialysis 80 BPM Temperature Pre-Dialysis 97.2 degF March 04, 2024 In-Center Hemodialysis Treatment 2216-07-16Z76:21:30.000Z 1178-12-76Y26:51:55.000Z BP Sitting (Pre-Dialysis) 166/100 mmHg BP Sitting (Post-Dialysis) 175/96 mmHg Concurrent Access: falseAV Fistula Upper Arm (Left) Arterial Sitting Heart Rate Pre-Dialysis 86 BPM BP Standing (Post-Dialysis) 185/101 mmHg Temperature Pre-Dialysis 98.1 degF Sitting Heart Ra te Post-Dialysis 90 BPM Standing Heart R ate Post-Dialysis 105 BPM Temperature Post-Dialysis 97 .8 degF March 01, 2024 In-Center Hemodialysis Treatment 5803-12-29Z05:13:04.000Z 4640-92-28U71:53:54.000Z BP Sitting (Pre-Dialysis) 182/93 mmHg BP Sitting (Post-Dialysis) 171/89 mmHg Concurrent Access: falseAV Fistula Upper Arm (Left) Arterial BP Standing (Pre-Dialysis) 184/111 mmHg Sitti ng Heart Rate Post-Dialysis 85 BPM Sitting Heart Rate Pre-Dialysis 78 BPM Temperatu re Post-Dialysis 97.6 degF Standing Heart Rate Pre-Dialysis 90 BPM Temperature Pre-Dialysis 97.9 degF February 28, 2024 In-Center Hemodialysis Treatment 3815-29-83K14:20:43.000Z 7241-48-20H96:16:33.000Z BP Sitting (Pre-Dialysis) 188/111 mmHg BP Sitting (Post-Dialysis) 141/89 mmHg Concurrent Access: falseAV Fistula Upper Arm (Left) Arterial BP Standing (Pre-Dialysis) 204/113 mmHg BP Standing (P ost-Dialysis) 157/84 mmHg Sitting Heart Rate Pre-Dialysis 81 BPM Sitting Heart Rate Post-Dialysis 104 BPM Standing Heart Rate Pre-Dialysis 82 BPM Standing Heart Rate Post-Dialysis 108 BPM Temperature Pre-Dialysis 97.4 degF Temperature Post -Dialysis 97.4 degF February 26, 2024 In-Center Hemodialysis Treatment 9425-62-67B02:39:51.000Z 7380-34-85L58:08:36.000Z BP Sitting (Pre-Dialysis) 178/99 mmHg BP Sitting (Post-Dialysis) 156/92 mmHg Concurrent Access: falseAV Fistula Upper Arm (Left) Arterial BP Standing (Pre-Dialysis) 182/90 mmHg BP Standing (P ost-Dialysis) 165/97 mmHg Sitting Heart Rate Pre-Dialysis 98 BPM Sitting Heart Rate Post-Dialysis 90 BPM Standing Heart Rate Pre-Dialysis 98 BPM Standing Heart Rate Post-Dialysis 90 BPM Temperature Pre-Dialysis 98.2 degF Temperature Post -Dialysis 98.3 degF February 23, 2024 In-Center Hemodialysis Treatment 1012-77-76M59:59:17.000Z 1419-48-93W81:38:27.000Z BP Sitting (Pre-Dialysis) 182/110 mmHg BP Sitting (Post-Dialysis) 166/89 mmHg Concurrent Access: falseAV Fistula Upper Arm (Left) Arterial Sitting Heart Rate Pre-Dialysis 86 BPM BP Standing (Post-Dialysis) 148/93 mmHg Temperature Pre-Dialysis 97.2 degF Sitting Heart Ra te Post-Dialysis 88 BPM Standing Heart Rate Post-Carla lysis 96 BPM Temperature Post-Dialysis 98 .2 degF February 21, 2024 In-Center Hemodialysis Treatment 5045-23-14S11:50:54.000Z 1176-44-39N74:35:04.000Z BP Sitting (Pre-Dialysis) 203/110 mmHg BP Sitting (Post-Dialysis) 171/89 mmHg Concurrent Access: falseAV Fistula Upper Arm (Left) Arterial BP Standing (Pre-Dialysis) 207/110 mmHg BP Standing (P ost-Dialysis) 169/80 mmHg Sitting Heart Rate Pre-Dialysis 81 BPM Sitting Heart Rate Post-Dialysis 87 BPM Standing Heart Rate Pre-Dialysis 78 BPM Standing Heart Rate Post-Dialysis 87 BPM Temperature Pre-Dialysis 98.2 degF Temperature Post -Dialysis 98.2 degF February 19, 2024 In-Center Hemodialysis Treatment 5891-33-20U92:14:11.000Z 7171-00-75X47:58:55.000Z BP Sitting (Pre-Dialysis) 194/117 mmHg BP Sitting (Post-Dialysis) 185/89 mmHg Concurrent Access: falseAV Fistula Upper Arm (Left) Arterial BP Standing (Pre-Dialysis) 204/121 mmHg BP Standing (P ost-Dialysis) 206/111 mmHg Sitting Heart Rate Pre-Dialysis 88 BPM Sitting Heart Rate Post-Dialysis 76 BPM Standing Heart Rate Pre-Dialysis 89 BPM Standing Heart Rate Post-Dialysis 95 BPM Temperature Pre-Dialysis 97.6 degF Temperature Post -Dialysis 97.3 degF February 16, 2024 In-Center Hemodialysis Treatment 0433-27-39U53:04:00.000Z 2341-23-82A94:50:26.000Z BP Sitting (Pre-Dialysis) 165/102 mmHg BP Sitting (Post-Dialysis) 169/100 mmHg Concurrent Access: falseAV Fistula Upper Arm (Left) Arterial BP Standing (Pre-Dialysis) 182/112 mmHg Sitti ng Heart Rate Post-Dialysis 83 BPM Sitting Heart Rate Pre-Dialysis 90 BPM Temperatu re Post-Dialysis 97.4 degF Standing Heart Rate Pre-Dialysis 88 BPM Temperature Pre-Dialysis 96.8 degF February 14, 2024 In-Center Hemodialysis Treatment 7330-42-46P57:19:23.000Z 8528-45-75X71:08:21.000Z BP Sitting (Pre-Dialysis) 168/103 mmHg BP Sitting (Post-Dialysis) 138/83 mmHg Concurrent Access: falseAV Fistula Upper Arm (Left) Arterial BP Standing (Pre-Dialysis) 184/107 mmHg BP Standing (P ost-Dialysis) 141/92 mmHg Sitting Heart Rate Pre-Dialysis 79 BPM Sitting Heart Rate Post-Dialysis 99 BPM Standing Heart Rate Pre-Dialysis 84 BPM Standing Heart Rate Post-Dialysis 94 BPM Temperature Pre-Dialysis 97.6 degF Temperature Post -Dialysis 98.4 degF February 12, 2024 In-Center Hemodialysis Treatment 4366-57-21M10:59:14.000Z 7272-72-60Z65:45:04.000Z BP Sitting (Pre-Dialysis) 179/102 mmHg BP Sitting (Post-Dialysis) 141/47 mmHg Concurrent Access: falseAV Fistula Upper Arm (Left) Arterial BP Standing (Pre-Dialysis) 162/103 mmHg BP Standing (P ost-Dialysis) 165/72 mmHg Sitting Heart Rate Pre-Dialysis 85 BPM Sitting Heart Rate Post-Dialysis 98 BPM Standing Heart Rate Pre-Dialysis 88 BPM Standing Heart Rate Post-Dialysis 89 BPM Temperature Pre-Dialysis 97.2 degF Temperature Post -Dialysis 97.2 degF February 09, 2024 In-Center Hemodialysis Treatment 8961-87-47O95:59:59.000Z 4832-90-59D48:41:14.000Z BP Sitting (Pre-Dialysis) 186/110 mmHg BP Sitting (Post-Dialysis) 123/79 mmHg Concurrent Access: falseAV Fistula Upper Arm (Left) Arterial BP Standing (Pre-Dialysis) 192/116 mmHg Sitti ng Heart Rate Post-Dialysis 69 BPM Sitting Heart Rate Pre-Dialysis 85 BPM Temperatu re Post-Dialysis 98.2 degF Standing Heart Rate Pre-Dialysis 90 BPM Temperature Pre-Dialysis 97.2 degF February 07, 2024 In-Center Hemodialysis Treatment 1068-15-94U90:59:00.000Z 5386-88-80X52:49:57.000Z BP Sitting (Pre-Dialysis) 175/102 mmHg BP Sitting (Post-Dialysis) 181/99 mmHg Concurrent Access: falseAV Fistula Upper Arm (Left) Arterial BP Standing (Pre-Dialysis) 185/106 mmHg BP Standing (P ost-Dialysis) 182/90 mmHg Sitting Heart Rate Pre-Dialysis 88 BPM Sitting Heart Rate Post-Dialysis 82 BPM Standing Heart Rate Pre-Dialysis 87 BPM Standing Heart Rate Post-Dialysis 105 BPM Temperature Pre-Dialysis 97.9 degF Temperature Post -Dialysis 98.2 degF February 05, 2024 In-Center Hemodialysis Treatment 1454-12-12H67:04:00.000Z 2158-62-14L96:48:15.000Z BP Sitting (Pre-Dialysis) 190/117 mmHg BP Sitting (Post-Dialysis) 181/104 mmHg Concurrent Access: falseAV Fistula Upper Arm (Left) Arterial BP Standing (Pre-Dialysis) 199/121 mmHg Sitti ng Heart Rate Post-Dialysis 96 BPM Sitting Heart Rate Pre-Dialysis 85 BPM Temperatu re Post-Dialysis 97.4 degF Standing Heart Rate Pre-Dialysis 87 BPM Temperature Pre-Dialysis 97.9 degF February 02, 2024 In-Center Hemodialysis Treatment 1564-92-41P77:10:00.000Z 1090-65-51F45:54:16.000Z BP Sitting (Pre-Dialysis) 176/101 mmHg BP Sitting (Post-Dialysis) 187/95 mmHg Concurrent Access: falseAV Fistula Upper Arm (Left) Arterial BP Standing (Pre-Dialysis) 164/95 mmHg Sitti ng Heart Rate Post-Dialysis 92 BPM Sitting Heart Rate Pre-Dialysis 95 BPM Temperatu re Post-Dialysis 97.2 degF Standing Heart Rate Pre-Dialysis 97 BPM Temperature Pre-Dialysis 97.9 degF January 31, 2024 In-Center Hemodialysis Treatment 4718-52-91Y46:56:00.000Z 5431-48-51R51:43:16.000Z BP Sitting (Pre-Dialysis) 162/100 mmHg BP Sitting (Post-Dialysis) 176/104 mmHg Concurrent Access: falseAV Fistula Upper Arm (Left) Arterial BP Standing (Pre-Dialysis) 161/100 mmHg Sitti ng Heart Rate Post-Dialysis 90 BPM Sitting Heart Rate Pre-Dialysis 89 BPM Temperatu re Post-Dialysis 97.8 degF Standing Heart Rate Pre-Dialysis 88 BPM Temperature Pre-Dialysis 97.3 degF January 29, 2024 In-Center Hemodialysis Treatment 6118-22-01S79:51:23.000Z 1792-42-40G08:20:58.000Z BP Sitting (Pre-Dialysis) 180/112 mmHg BP Sitting (Post-Dialysis) 182/99 mmHg Concurrent Access: falseAV Fistula Upper Arm (Left) Arterial BP Standing (Pre-Dialysis) 176/113 mmHg Sitti ng Heart Rate Post-Dialysis 81 BPM Sitting Heart Rate Pre-Dialysis 90 BPM Temperatu re Post-Dialysis 98.2 degF Standing Heart Rate Pre-Dialysis 90 BPM Temperature Pre-Dialysis 98.2 degF January 26, 2024 In-Center Hemodialysis Treatment 8691-38-05E41:56:01.000Z 4449-17-24G04:25:36.000Z BP Sitting (Pre-Dialysis) 164/96 mmHg BP Sitting (Post-Dialysis) 177/97 mmHg Concurrent Access: falseAV Fistula Upper Arm (Left) Arterial BP Standing (Pre-Dialysis) 158/78 mmHg BP Standing (P ost-Dialysis) 159/90 mmHg Sitting Heart Rate Pre-Dialysis 86 BPM Sitting Heart Rate Post-Dialysis 91 BPM Standing Heart Rate Pre-Dialysis 87 BPM Standing Heart Rate Post-Dialysis 97 BPM Temperature Pre-Dialysis 98.2 degF Temperature Post -Dialysis 98.2 degF January 24, 2024 In-Center Hemodialysis Treatment 6676-88-72K12:16:00.000Z 1511-10-75U74:01:23.000Z BP Sitting (Pre-Dialysis) 168/104 mmHg BP Sitting (Post-Dialysis) 161/99 mmHg Concurrent Access: falseAV Fistula Upper Arm (Left) Arterial BP Standing (Pre-Dialysis) 204/128 mmHg Sitti ng Heart Rate Post-Dialysis 76 BPM Sitting Heart Rate Pre-Dialysis 89 BPM Temperatu re Post-Dialysis 97.5 degF Standing Heart Rate Pre-Dialysis 93 BPM Temperature Pre-Dialysis 98.1 degF January 22, 2024 In-Center Hemodialysis Treatment 6077-78-12R55:40:20.000Z 9338-87-45I84:24:30.000Z BP Sitting (Pre-Dialysis) 165/100 mmHg BP Sitting (Post-Dialysis) 171/94 mmHg Concurrent Access: falseAV Fistula Upper Arm (Left) Arterial BP Standing (Pre-Dialysis) 170/104 mmHg BP Standing (P ost-Dialysis) 168/109 mmHg Sitting Heart Rate Pre-Dialysis 89 BPM Sitting Heart Rate Post-Dialysis 80 BPM Standing Heart Rate Pre-Dialysis 94 BPM Standing Heart Rate Post-Dialysis 88 BPM Temperature Pre-Dialysis 97.9 degF Temperature Post -Dialysis 97.5 degF January 19, 2024 In-Center Hemodialysis Treatment 1386-34-68G01:26:48.000Z 1709-89-43E14:08:03.000Z BP Sitting (Pre-Dialysis) 161/83 mmHg BP Sitting (Post-Dialysis) 174/99 mmHg Concurrent Access: falseAV Fistula Upper Arm (Left) Arterial BP Standing (Pre-Dialysis) 159/87 mmHg Sitti ng Heart Rate Post-Dialysis 87 BPM Sitting Heart Rate Pre-Dialysis 89 BPM Temperatu re Post-Dialysis 98.2 degF Standing Heart Rate Pre-Dialysis 89 BPM Temperature Pre-Dialysis 98.2 degF January 17, 2024 In-Center Hemodialysis Treatment 4056-09-93Q67:04:40.000Z 3471-63-91O90:49:15.000Z BP Sitting (Pre-Dialysis) 179/93 mmHg BP Sitting (Post-Dialysis) 173/101 mmHg Concurrent Access: falseAV Fistula Upper Arm (Left) Arterial BP Standing (Pre-Dialysis) 147/96 mmHg Sitti ng Heart Rate Post-Dialysis 91 BPM Sitting Heart Rate Pre-Dialysis 96 BPM Temperatu re Post-Dialysis 98.2 degF Standing Heart Rate Pre-Dialysis 100 BPM Temperature Pre-Dialysis 98 degF January 15, 2024 In-Center Hemodialysis Treatment 2780-30-83L08:53:06.000Z 5429-05-07V99:35:36.000Z BP Sitting (Pre-Dialysis) 178/89 mmHg BP Sitting (Post-Dialysis) 176/98 mmHg Concurrent Access: falseAV Fistula Upper Arm (Left) Arterial BP Standing (Pre-Dialysis) 186/86 mmHg BP Standing (P ost-Dialysis) 180/121 mmHg Sitting Heart Rate Pre-Dialysis 89 BPM Sitting Heart Rate Post-Dialysis 77 BPM Standing Heart Rate Pre-Dialysis 86 BPM Standing Heart Rate Post-Dialysis 95 BPM Temperature Pre-Dialysis 98.2 degF Temperature Post -Dialysis 97.8 degF January 12, 2024 In-Center Hemodialysis Treatment 5355-80-98O32:50:00.000Z 5457-08-30C43:38:25.000Z BP Sitting (Pre-Dialysis) 189/106 mmHg BP Sitting (Post-Dialysis) 168/109 mmHg Concurrent Access: falseAV Fistula Upper Arm (Left) Arterial Sitting Heart Rate Pre-Dialysis 87 BPM Sitting H eart Rate Post-Dialysis 86 BPM Temperature Pre-Dialysis 97.3 degF Temperature Post -Dialysis 98.1 degF January 10, 2024 In-Center Hemodialysis Treatment 4416-33-11L95:31:00.000Z 8722-08-46V92:18:07.000Z BP Sitting (Pre-Dialysis) 180/99 mmHg BP Sitting (Post-Dialysis) 182/93 mmHg Concurrent Access: falseAV Fistula Upper Arm (Left) Arterial BP Standing (Pre-Dialysis) 168/94 mmHg Sitti ng Heart Rate Post-Dialysis 82 BPM Sitting Heart Rate Pre-Dialysis 82 BPM Temperatu re Post-Dialysis 97.8 degF Standing Heart Rate Pre-Dialysis 85 BPM Temperature Pre-Dialysis 98.7 degF January 08, 2024 In-Center Hemodialysis Treatment 2847-54-89S42:36:03.000Z 7141-61-92A64:17:18.000Z BP Sitting (Pre-Dialysis) 183/106 mmHg BP Sitting (Post-Dialysis) 173/94 mmHg Concurrent Access: falseAV Fistula Upper Arm (Left) Arterial BP Standing (Pre-Dialysis) 179/108 mmHg BP Standing (P ost-Dialysis) 158/95 mmHg Sitting Heart Rate Pre-Dialysis 87 BPM Sitting Heart Rate Post-Dialysis 80 BPM Standing Heart Rate Pre-Dialysis 90 BPM Standing Heart Rate Post-Dialysis 94 BPM Temperature Pre-Dialysis 97.7 degF Temperature Post -Dialysis 97.6 degF January 05, 2024 In-Center Hemodialysis Treatment 2113-65-50O08:41:00.000Z 8198-52-87Y02:26:03.000Z BP Sitting (Pre-Dialysis) 186/110 mmHg BP Sitting (Post-Dialysis) 168/104 mmHg Concurrent Access: falseAV Fistula Upper Arm (Left) Arterial Sitting Heart Rate Pre-Dialysis 86 BPM BP Standing (Post-Dialysis) 178/97 mmHg Temperature Pre-Dialysis 97.7 degF Sitting Heart Ra te Post-Dialysis 76 BPM Standing Heart Rate Post-Carla lysis 87 BPM Temperature Post-Dialysis 97 .2 degF January 03, 2024 In-Center Hemodialysis Treatment 3194-78-25C98:40:00.000Z 1076-27-72B26:26:39.000Z BP Sitting (Pre-Dialysis) 165/100 mmHg BP Sitting (Post-Dialysis) 183/91 mmHg Concurrent Access: falseAV Fistula Upper Arm (Left) Arterial BP Standing (Pre-Dialysis) 165/105 mmHg Sitti ng Heart Rate Post-Dialysis 86 BPM Sitting Heart Rate Pre-Dialysis 84 BPM Temperatu re Post-Dialysis 97.8 degF Standing Heart Rate Pre-Dialysis 85 BPM Temperature Pre-Dialysis 97.8 degF January 01, 2024 In-Center Hemodialysis Treatment 1218-46-55P79:43:48.000Z 7190-83-82R21:29:38.000Z BP Sitting (Pre-Dialysis) 175/106 mmHg BP Sitting (Post-Dialysis) 179/98 mmHg Concurrent Access: falseAV Fistula Upper Arm (Left) Arterial BP Standing (Pre-Dialysis) 181/123 mmHg BP Standing (P ost-Dialysis) 181/99 mmHg Sitting Heart Rate Pre-Dialysis 87 BPM Sitting Heart Rate Post-Dialysis 90 BPM Standing Heart Rate Pre-Dialysis 90 BPM Standing Heart Rate Post-Dialysis 90 BPM Temperature Pre-Dialysis 97.2 degF Temperature Post -Dialysis 97.2 degF December 29, 2023 In-Center Hemodialysis Treatment 2464-05-68R70:04:58.000Z 0250-37-48L41:49:58.000Z BP Sitting (Pre-Dialysis) 164/91 mmHg BP Sitting (Post-Dialysis) 167/95 mmHg Concurrent Access: falseAV Fistula Upper Arm (Left) Arterial BP Standing (Pre-Dialysis) 186/112 mmHg BP Standing (P ost-Dialysis) 173/116 mmHg Sitting Heart Rate Pre-Dialysis 82 BPM Sitting Heart Rate Post-Dialysis 73 BPM Standing Heart Rate Pre-Dialysis 85 BPM Standing Heart Rate Post-Dialysis 95 BPM Temperature Pre-Dialysis 97.2 degF Temperature Post -Dialysis 97.2 degF December 27, 2023 In-Center Hemodialysis Treatment 3518-59-41F27:28:00.000Z 2410-62-81G68:13:38.000Z BP Sitting (Pre-Dialysis) 160/98 mmHg BP Sitting (Post-Dialysis) 170/108 mmHg Concurrent Access: falseAV Fistula Upper Arm (Left) Arterial BP Standing (Pre-Dialysis) 151/99 mmHg BP Standing (P ost-Dialysis) 170/110 mmHg Sitting Heart Rate Pre-Dialysis 83 BPM Sitting Heart Rate Post-Dialysis 78 BPM Standing Heart Rate Pre-Dialysis 86 BPM Standing Heart Rate Post-Dialysis 70 BPM Temperature Pre-Dialysis 97.4 degF Temperature Post -Dialysis 97.7 degF December 25, 2023 In-Center Hemodialysis Treatment 6181-08-17J88:18:38.000Z 7699-59-85X31:01:33.000Z BP Sitting (Pre-Dialysis) 180/86 mmHg BP Sitting (Post-Dialysis) 118/64 mmHg Concurrent Access: falseAV Fistula Upper Arm (Left) Arterial BP Standing (Pre-Dialysis) 161/96 mmHg Sitti ng Heart Rate Post-Dialysis 77 BPM Sitting Heart Rate Pre-Dialysis 89 BPM Temperatu re Post-Dialysis 97.4 degF Standing Heart Rate Pre-Dialysis 89 BPM Temperature Pre-Dialysis 98.1 degF December 22, 2023 In-Center Hemodialysis Treatment [id number]:46:50.000Z 2492-21-20S03:18:30.000Z BP Sitting (Pre-Dialysis) 183/95 mmHg BP Sitting (Post-Dialysis) 154/96 mmHg Concurrent Access: falseAV Fistula Upper Arm (Left) Arterial BP Standing (Pre-Dialysis) 191/113 mmHg Sitti ng Heart Rate Post-Dialysis 74 BPM Sitting Heart Rate Pre-Dialysis 87 BPM Temperatu re Post-Dialysis 98.2 degF Standing Heart Rate Pre-Dialysis 92 BPM Temperature Pre-Dialysis 98.2 degF December 20, 2023 In-Center Hemodialysis Treatment 6169-11-15T51:41:02.000Z 5405-37-36K10:24:47.000Z BP Sitting (Pre-Dialysis) 171/105 mmHg BP Sitting (Post-Dialysis) 169/101 mmHg Concurrent Access: falseAV Fistula Upper Arm (Left) Arterial BP Standing (Pre-Dialysis) 160/87 mmHg Sitti ng Heart Rate Post-Dialysis 83 BPM Sitting Heart Rate Pre-Dialysis 88 BPM Temperatu re Post-Dialysis 97.6 degF Standing Heart Rate Pre-Dialysis 87 BPM Temperature Pre-Dialysis 97.2 degF December 18, 2023 In-Center Hemodialysis Treatment [id number]:14:00.000Z 5079-73-19H35:53:48.000Z BP Sitting (Pre-Dialysis) 166/100 mmHg BP Sitting (Post-Dialysis) 164/95 mmHg Concurrent Access: falseAV Fistula Upper Arm (Left) Arterial BP Standing (Pre-Dialysis) 166/104 mmHg Sitti ng Heart Rate Post-Dialysis 81 BPM Sitting Heart Rate Pre-Dialysis 85 BPM Temperatu re Post-Dialysis 97.7 degF Standing Heart Rate Pre-Dialysis 89 BPM Temperature Pre-Dialysis 98.1 degF 2023 In-Center Hemodialysis Treatment 7310-20-52I94:40:07.000Z 4805-06-32H55:23:27.000Z BP Sitting (Pre-Dialysis) 171/105 mmHg BP Sitting (Post-Dialysis) 173/107 mmHg Concurrent Access: falseAV Fistula Upper Arm (Left) Arterial BP Standing (Pre-Dialysis) 180/108 mmHg BP Standing (P ost-Dialysis) 173/101 mmHg Sitting Heart Rate Pre-Dialysis 86 BPM Sitting Heart Rate Post-Dialysis 81 BPM Standing Heart Rate Pre-Dialysis 86 BPM Standing Heart Rate Post-Dialysis 92 BPM Temperature Pre-Dialysis 97.9 degF Temperature Post -Dialysis 98.1 degF December 13, 2023 In-Center Hemodialysis Treatment [id number]:34:04.000Z 8710-73-80V15:12:24.000Z BP Sitting (Pre-Dialysis) 206/116 mmHg BP Sitting (Post-Dialysis) 189/87 mmHg Concurrent Access: falseAV Fistula Upper Arm (Left) Arterial BP Standing (Pre-Dialysis) 216/134 mmHg Sitti ng Heart Rate Post-Dialysis 85 BPM Sitting Heart Rate Pre-Dialysis 86 BPM Temperatu re Post-Dialysis 96.3 degF Standing Heart Rate Pre-Dialysis 92 BPM Temperature Pre-Dialysis 98.2 degF December 11, 2023 In-Center Hemodialysis Treatment 3348-55-76Q90:07:37.000Z 6061-65-05D30:44:42.000Z BP Sitting (Pre-Dialysis) 163/91 mmHg BP Sitting (Post-Dialysis) 178/98 mmHg Concurrent Access: falseAV Fistula Upper Arm (Left) Arterial BP Standing (Pre-Dialysis) 168/104 mmHg BP Standing (P ost-Dialysis) 175/78 mmHg Sitting Heart Rate Pre-Dialysis 90 BPM Sitting Heart Rate Post-Dialysis 77 BPM Standing Heart Rate Pre-Dialysis 93 BPM Standing Heart Rate Post-Dialysis 76 BPM Temperature Pre-Dialysis 97.2 degF Temperature Post -Dialysis 97.2 degF December 08, 2023 In-Center Hemodialysis Treatment 9518-86-59V02:02:58.000Z 3065-32-06Y74:32:58.000Z BP Sitting (Pre-Dialysis) 174/94 mmHg BP Sitting (Post-Dialysis) 187/99 mmHg Concurrent Access: falseAV Fistula Upper Arm (Left) Arterial BP Standing (Pre-Dialysis) 163/77 mmHg Sitti ng Heart Rate Post-Dialysis 77 BPM Sitting Heart Rate Pre-Dialysis 84 BPM Temperatu re Post-Dialysis 98.2 degF Standing Heart Rate Pre-Dialysis 94 BPM Temperature Pre-Dialysis 98.3 degF December 06, 2023 In-Center Hemodialysis Treatment 4352-13-20S00:31:29.000Z 2224-94-30V14:16:29.000Z BP Sitting (Pre-Dialysis) 157/87 mmHg BP Sitting (Post-Dialysis) 185/109 mmHg Concurrent Access: falseAV Fistula Upper Arm (Left) Arterial BP Standing (Pre-Dialysis) 146/90 mmHg BP Standing (P ost-Dialysis) 192/105 mmHg Sitting Heart Rate Pre-Dialysis 91 BPM Sitting Heart Rate Post-Dialysis 85 BPM Standing Heart Rate Pre-Dialysis 97 BPM Standing Heart Rate Post-Dialysis 97 BPM Temperature Pre-Dialysis 97.6 degF Temperature Post -Dialysis 97.6 degF December 04, 2023 In-Center Hemodialysis Treatment 6563-24-12W42:23:11.000Z 0077-73-22E09:08:08.000Z BP Sitting (Pre-Dialysis) 152/99 mmHg BP Sitting (Post-Dialysis) 176/101 mmHg Concurrent Access: falseAV Fistula Upper Arm (Left) Arterial BP Standing (Pre-Dialysis) 143/106 mmHg BP Standing (P ost-Dialysis) 182/135 mmHg Sitting Heart Rate Pre-Dialysis 90 BPM Sitting Heart Rate Post-Dialysis 74 BPM Standing Heart Rate Pre-Dialysis 93 BPM Standing Heart Rate Post-Dialysis 95 BPM Temperature Pre-Dialysis 98.2 degF Temperature Post -Dialysis 97.8 degF December 01, 2023 In-Center Hemodialysis Treatment [id number]:13:08.000Z 7453-97-35C90:43:08.000Z BP Sitting (Pre-Dialysis) 145/90 mmHg BP Sitting (Post-Dialysis) 183/113 mmHg Concurrent Access: falseAV Fistula Upper Arm (Left) Arterial BP Standing (Pre-Dialysis) 143/89 mmHg BP Standing (P ost-Dialysis) 169/90 mmHg Sitting Heart Rate Pre-Dialysis 87 BPM Sitting Heart Rate Post-Dialysis 69 BPM Standing Heart Rate Pre-Dialysis 87 BPM Standing Heart Rate Post-Dialysis 96 BPM Temperature Pre-Dialysis 98.2 degF Temperature Post -Dialysis 97.4 degF November 29, 2023 In-Center Hemodialysis Treatment 7665-11-63I42:12:43.000Z 7568-09-46A07:49:23.000Z BP Sitting (Pre-Dialysis) 163/87 mmHg BP Sitting (Post-Dialysis) 171/91 mmHg Concurrent Access: falseAV Fistula Upper Arm (Left) Arterial BP Standing (Pre-Dialysis) 159/88 mmHg BP Standing (P ost-Dialysis) 163/108 mmHg Sitting Heart Rate Pre-Dialysis 87 BPM Sitting Heart Rate Post-Dialysis 85 BPM Standing Heart Rate Pre-Dialysis 87 BPM Standing Heart Rate Post-Dialysis 98 BPM Temperature Pre-Dialysis 97.2 degF Temperature Post -Dialysis 98.2 degF November 27, 2023 In-Center Hemodialysis Treatment 8539-44-53N07:08:00.000Z 3054-76-30U97:51:52.000Z BP Sitting (Pre-Dialysis) 169/104 mmHg BP Sitting (Post-Dialysis) 157/103 mmHg Concurrent Access: falseAV Fistula Upper Arm (Left) Arterial BP Standing (Pre-Dialysis) 154/95 mmHg Sitting Heart Rate Post-Dialysis 81 BPM Sitting Heart Rate Pre-Dialysis 87 BPM Temperatu re Post-Dialysis 97 degF Standing Heart Rate Pre-Dialysis 92 BPM Temperature Pre-Dialysis 97.3 degF November 24, 2023 In-Center Hemodialysis Treatment 2013-49-34O84:45:08.000Z 5713-04-14Y48:30:08.000Z BP Sitting (Pre-Dialysis) 155/98 mmHg BP Sitting (Post-Dialysis) 173/90 mmHg Concurrent Access: falseAV Fistula Upper Arm (Left) Arterial BP Standing (Pre-Dialysis) 161/97 mmHg Sitti ng Heart Rate Post-Dialysis 89 BPM Sitting Heart Rate Pre-Dialysis 85 BPM Temperatu re Post-Dialysis 97.6 degF Standing Heart Rate Pre-Dialysis 87 BPM Temperature Pre-Dialysis 98.1 degF November 22, 2023 In-Center Hemodialysis Treatment 6561-34-00C15:33:06.000Z 8942-91-19J42:16:01.000Z BP Sitting (Pre-Dialysis) 161/99 mmHg BP Sitting (Post-Dialysis) 194/107 mmHg Concurrent Access: falseAV Fistula Upper Arm (Left) Arterial BP Standing (Pre-Dialysis) 159/91 mmHg Sitti ng Heart Rate Post-Dialysis 84 BPM Sitting Heart Rate Pre-Dialysis 82 BPM Temperatu re Post-Dialysis 97.4 degF Standing Heart Rate Pre-Dialysis 78 BPM Temperature Pre-Dialysis 97.4 degF November 20, 2023 In-Center Hemodialysis Treatment 7202-93-22H55:04:00.000Z 6530-70-62O93:45:22.000Z BP Sitting (Pre-Dialysis) 177/100 mmHg BP Sitting (Post-Dialysis) 178/82 mmHg Concurrent Access: falseAV Fistula Upper Arm (Left) Arterial BP Standing (Pre-Dialysis) 123/93 mmHg Sitting Heart Rate Post-Dialysis 87 BPM Sitting Heart Rate Pre-Dialysis 89 BPM Temperatu re Post-Dialysis 98 degF Standing Heart Rate Pre-Dialysis 93 BPM Temperature Pre-Dialysis 98.2 degF November 17, 2023 In-Center Hemodialysis Treatment 0225-39-10E16:12:16.000Z 7683-12-80P25:57:16.000Z BP Sitting (Pre-Dialysis) 198/111 mmHg BP Sitting (Post-Dialysis) 165/99 mmHg Concurrent Access: falseAV Fistula Upper Arm (Left) Arterial BP Standing (Pre-Dialysis) 200/120 mmHg Sitti ng Heart Rate Post-Dialysis 77 BPM Sitting Heart Rate Pre-Dialysis 81 BPM Temperatu re Post-Dialysis 96.9 degF Standing Heart Rate Pre-Dialysis 91 BPM Temperature Pre-Dialysis 98.2 degF November 15, 2023 In-Center Hemodialysis Treatment 1375-97-00L50:37:42.000Z 2466-42-36E84:18:31.000Z BP Sitting (Pre-Dialysis) 149/87 mmHg BP Sitting (Post-Dialysis) 156/94 mmHg Concurrent Access: falseAV Fistula Upper Arm (Left) Arterial BP Standing (Pre-Dialysis) 156/91 mmHg Sitti ng Heart Rate Post-Dialysis 85 BPM Sitting Heart Rate Pre-Dialysis 70 BPM Temperatu re Post-Dialysis 98.2 degF Standing Heart Rate Pre-Dialysis 69 BPM Temperature Pre-Dialysis 97.2 degF November 13, 2023 In-Center Hemodialysis Treatment 8312-07-64V59:52:32.000Z 5179-85-07P22:37:07.000Z BP Sitting (Pre-Dialysis) 186/113 mmHg BP Sitting (Post-Dialysis) 167/94 mmHg Concurrent Access: falseAV Fistula Upper Arm (Left) Arterial BP Standing (Pre-Dialysis) 162/94 mmHg Sitti ng Heart Rate Post-Dialysis 80 BPM Sitting Heart Rate Pre-Dialysis 86 BPM Temperatu re Post-Dialysis 95.5 degF Standing Heart Rate Pre-Dialysis 83 BPM Temperature Pre-Dialysis 97.7 degF November 10, 2023 In-Center Hemodialysis Treatment 8290-33-39H10:06:00.000Z 8443-26-90Q71:51:24.000Z BP Sitting (Pre-Dialysis) 172/104 mmHg BP Sitting (Post-Dialysis) 159/96 mmHg Concurrent Access: falseAV Fistula Upper Arm (Left) Arterial BP Standing (Pre-Dialysis) 155/106 mmHg BP Standing (P ost-Dialysis) 124/90 mmHg Sitting Heart Rate Pre-Dialysis 85 BPM Sitting Heart Rate Post-Dialysis 77 BPM Standing Heart Rate Pre-Dialysis 91 BPM Standing Heart Rate Post-Dialysis 90 BPM Temperature Pre-Dialysis 98.1 degF Temperature Post -Dialysis 97.8 degF November 08, 2023 In-Center Hemodialysis Treatment 9838-06-38T51:24:00.000Z 1382-75-14B79:09:04.000Z BP Sitting (Pre-Dialysis) 166/98 mmHg BP Sitting (Post-Dialysis) 146/90 mmHg Concurrent Access: falseAV Fistula Upper Arm (Left) Arterial BP Standing (Pre-Dialysis) 148/91 mmHg Sitti ng Heart Rate Post-Dialysis 81 BPM Sitting Heart Rate Pre-Dialysis 83 BPM Temperatu re Post-Dialysis 98.1 degF Standing Heart Rate Pre-Dialysis 93 BPM Temperature Pre-Dialysis 98.6 degF November 06, 2023 In-Center Hemodialysis Treatment 7694-68-93P76:36:44.000Z 7683-18-23Z79:20:04.000Z BP Sitting (Pre-Dialysis) 179/96 mmHg BP Sitting (Post-Dialysis) 159/62 mmHg Concurrent Access: falseAV Fistula Upper Arm (Left) Arterial BP Standing (Pre-Dialysis) 187/99 mmHg Sitti ng Heart Rate Post-Dialysis 87 BPM Sitting Heart Rate Pre-Dialysis 90 BPM Temperatu re Post-Dialysis 97.2 degF Standing Heart Rate Pre-Dialysis 90 BPM Temperature Pre-Dialysis 97.2 degF November 03, 2023 In-Center Hemodialysis Treatment 8118-34-21M14:38:28.000Z 5804-90-85G51:19:43.000Z BP Sitting (Pre-Dialysis) 187/104 mmHg BP Sitting (Post-Dialysis) 142/90 mmHg Concurrent Access: falseAV Fistula Upper Arm (Left) Arterial BP Standing (Pre-Dialysis) 169/99 mmHg Sitti ng Heart Rate Post-Dialysis 87 BPM Sitting Heart Rate Pre-Dialysis 88 BPM Temperatu re Post-Dialysis 98.2 degF Temperature Pre-Dialysis 97.2 degF November 01, 2023 In-Center Hemodialysis Treatment 8971-85-53X92:42:33.000Z 8081-35-32Q91:25:53.000Z BP Sitting (Pre-Dialysis) 149/89 mmHg BP Sitting (Post-Dialysis) 164/97 mmHg Concurrent Access: falseAV Fistula Upper Arm (Left) Arterial BP Standing (Pre-Dialysis) 152/91 mmHg BP Standing (P ost-Dialysis) 134/82 mmHg Sitting Heart Rate Pre-Dialysis 80 BPM Sitting Heart Rate Post-Dialysis 80 BPM Standing Heart Rate Pre-Dialysis 82 BPM Standing Heart Rate Post-Dialysis 97 BPM Temperature Pre-Dialysis 98.2 degF Temperature Post -Dialysis 97.8 degF October 30, 2023 In-Center Hemodialysis Treatment 6268-80-34A94:26:00.000Z 4899-10-30U03:14:26.000Z BP Sitting (Pre-Dialysis) 167/110 mmHg BP Sitting (Post-Dialysis) 154/89 mmHg Concurrent Access: falseAV Fistula Upper Arm (Left) Arterial BP Standing (Pre-Dialysis) 150/45 mmHg BP Standing (P ost-Dialysis) 145/103 mmHg Sitting Heart Rate Pre-Dialysis 81 BPM Sitting Heart Rate Post-Dialysis 77 BPM Standing Heart Rate Pre-Dialysis 68 BPM Standing Heart Rate Post-Dialysis 85 BPM Temperature Pre-Dialysis 98.1 degF Temperature Post -Dialysis 97.6 degF October 27, 2023 In-Center Hemodialysis Treatment 0520-32-10K67:10:19.000Z 6761-82-80I57:53:39.000Z BP Sitting (Pre-Dialysis) 155/100 mmHg BP Sitting (Post-Dialysis) 134/80 mmHg Concurrent Access: falseAV Fistula Upper Arm (Left) Arterial BP Standing (Pre-Dialysis) 154/92 mmHg BP Standing (P ost-Dialysis) 155/84 mmHg Sitting Heart Rate Pre-Dialysis 79 BPM Sitting Heart Rate Post-Dialysis 80 BPM Standing Heart Rate Pre-Dialysis 88 BPM Standing Heart Rate Post-Dialysis 93 BPM Temperature Pre-Dialysis 97.7 degF Temperature Post -Dialysis 97.2 degF October 25, 2023 In-Center Hemodialysis Treatment 0207-40-72H54:47:00.000Z 8588-77-14S15:35:25.000Z BP Sitting (Pre-Dialysis) 129/79 mmHg BP Sitting (Post-Dialysis) 141/83 mmHg Concurrent Access: falseAV Fistula Upper Arm (Left) Arterial BP Standing (Pre-Dialysis) 132/82 mmHg BP Standing (P ost-Dialysis) 136/82 mmHg Sitting Heart Rate Pre-Dialysis 80 BPM Sitting Heart Rate Post-Dialysis 80 BPM Standing Heart Rate Pre-Dialysis 79 BPM Standing Heart Rate Post-Dialysis 83 BPM Temperature Pre-Dialysis 97.8 degF Temperature Post -Dialysis 97.3 degF October 23, 2023 In-Center Hemodialysis Treatment 6412-04-89Q32:39:00.000Z 0354-70-17G68:25:10.000Z BP Sitting (Pre-Dialysis) 169/102 mmHg BP Sitting (Post-Dialysis) 154/91 mmHg Concurrent Access: falseAV Fistula Upper Arm (Left) Arterial Sitting Heart Rate Pre-Dialysis 88 BPM Sitting H eart Rate Post-Dialysis 98 BPM Temperature Pre-Dialysis 98.1 degF Temperature Post -Dialysis 97.6 degF October 20, 2023 In-Center Hemodialysis Treatment 4540-84-17E13:27:19.000Z 2684-53-52P84:12:19.000Z BP Sitting (Pre-Dialysis) 173/104 mmHg BP Sitting (Post-Dialysis) 165/97 mmHg Concurrent Access: falseAV Fistula Upper Arm (Left) Arterial BP Standing (Pre-Dialysis) 168/114 mmHg BP Standing (P ost-Dialysis) 168/110 mmHg Sitting Heart Rate Pre-Dialysis 86 BPM Sitting Heart Rate Post-Dialysis 86 BPM Standing Heart Rate Pre-Dialysis 92 BPM Standing Heart Rate Post-Dialysis 91 BPM Temperature Pre-Dialysis 98.1 degF October 16, 2023 In-Center Hemodialysis Treatment 3417-93-79N46:47:13.000Z 1091-14-16W72:26:48.000Z BP Sitting (Pre-Dialysis) 180/104 mmHg BP Sitting (Post-Dialysis) 140/87 mmHg Concurrent Access: falseAV Fistula Upper Arm (Left) Arterial BP Standing (Pre-Dialysis) 196/113 mmHg Sitti ng Heart Rate Post-Dialysis 80 BPM Sitting Heart Rate Pre-Dialysis 94 BPM Temperatu re Post-Dialysis 97.2 degF Standing Heart Rate Pre-Dialysis 100 BPM Temperature Pre-Dialysis 98.2 degF October 13, 2023 In-Center Hemodialysis Treatment 7534-10-62N51:11:25.000Z 7056-59-35A72:56:25.000Z BP Sitting (Pre-Dialysis) 162/92 mmHg BP Sitting (Post-Dialysis) 149/94 mmHg Concurrent Access: falseAV Fistula Upper Arm (Left) Arterial BP Standing (Pre-Dialysis) 142/92 mmHg BP Standing (P ost-Dialysis) 140/93 mmHg Sitting Heart Rate Pre-Dialysis 87 BPM Sitting Heart Rate Post-Dialysis 87 BPM Standing Heart Rate Pre-Dialysis 90 BPM Standing Heart Rate Post-Dialysis 102 BPM Temperature Pre-Dialysis 98.2 degF Temperature Post -Dialysis 98.2 degF October 11, 2023 In-Center Hemodialysis Treatment 5784-26-96U49:27:39.000Z 7938-00-08P08:58:29.000Z BP Sitting (Pre-Dialysis) 165/97 mmHg BP Sitting (Post-Dialysis) 162/90 mmHg Concurrent Access: falseAV Fistula Upper Arm (Left) Arterial BP Standing (Pre-Dialysis) 161/94 mmHg Sitti ng Heart Rate Post-Dialysis 83 BPM Sitting Heart Rate Pre-Dialysis 82 BPM Temperatu re Post-Dialysis 98.2 degF Standing Heart Rate Pre-Dialysis 89 BPM Temperature Pre-Dialysis 98.2 degF October 09, 2023 In-Center Hemodialysis Treatment 4919-65-69C50:44:52.000Z 9470-87-01Z33:31:57.000Z BP Sitting (Pre-Dialysis) 173/98 mmHg BP Sitting (Post-Dialysis) 168/95 mmHg Concurrent Access: falseAV Fistula Upper Arm (Left) Arterial BP Standing (Pre-Dialysis) 168/101 mmHg Sitti ng Heart Rate Post-Dialysis 83 BPM Sitting Heart Rate Pre-Dialysis 88 BPM Temperatu re Post-Dialysis 97.4 degF Standing Heart Rate Pre-Dialysis 90 BPM Temperature Pre-Dialysis 98.1 degF October 06, 2023 In-Center Hemodialysis Treatment 4111-13-79L47:53:21.000Z 0888-98-31N21:35:26.000Z BP Sitting (Pre-Dialysis) 147/94 mmHg BP Sitting (Post-Dialysis) 144/88 mmHg Concurrent Access: falseAV Fistula Upper Arm (Left) Arterial Sitting Heart Rate Pre-Dialysis 87 BPM BP Standing (Post-Dialysis) 151/87 mmHg Temperature Pre-Dialysis 97.7 degF Sitting Heart Ra te Post-Dialysis 82 BPM Standing Heart Rate Post-Carla lysis 91 BPM Temperature Post-Dialysis 97 .2 degF October 04, 2023 In-Center Hemodialysis Treatment 9291-18-15H66:46:39.000Z 9119-82-82E74:32:04.000Z BP Sitting (Pre-Dialysis) 133/89 mmHg BP Sitting (Post-Dialysis) 141/85 mmHg Concurrent Access: falseAV Fistula Upper Arm (Left) Arterial BP Standing (Pre-Dialysis) 148/85 mmHg Sitti ng Heart Rate Post-Dialysis 84 BPM Sitting Heart Rate Pre-Dialysis 88 BPM Temperatu re Post-Dialysis 97.9 degF Standing Heart Rate Pre-Dialysis 86 BPM Temperature Pre-Dialysis 97.9 degF October 02, 2023 In-Center Hemodialysis Treatment 2414-47-22Z46:55:00.000Z 2905-34-74D53:40:50.000Z BP Sitting (Pre-Dialysis) 169/103 mmHg BP Sitting (Post-Dialysis) 148/89 mmHg Concurrent Access: falseAV Fistula Upper Arm (Left) Arterial BP Standing (Pre-Dialysis) 162/108 mmHg Sitti ng Heart Rate Post-Dialysis 90 BPM Sitting Heart Rate Pre-Dialysis 83 BPM Temperatu re Post-Dialysis 97.3 degF Standing Heart Rate Pre-Dialysis 90 BPM Temperature Pre-Dialysis 97.3 degF September 29, 2023 In-Center Hemodialysis Treatment 6747-60-40F88:28:06.000Z 9766-57-37R58:09:21.000Z BP Sitting (Pre-Dialysis) 163/87 mmHg BP Sitting (Post-Dialysis) 174/85 mmHg Concurrent Access: falseAV Fistula Upper Arm (Left) Arterial BP Standing (Pre-Dialysis) 169/92 mmHg BP Standing (P ost-Dialysis) 168/80 mmHg Sitting Heart Rate Pre-Dialysis 90 BPM Sitting Heart Rate Post-Dialysis 78 BPM Standing Heart Rate Pre-Dialysis 92 BPM Standing Heart Rate Post-Dialysis 70 BPM Temperature Pre-Dialysis 98.2 degF Temperature Post -Dialysis 98.2 degF September 27, 2023 In-Center Hemodialysis Treatment 6730-38-12W35:37:24.000Z 7907-08-83I91:23:14.000Z BP Sitting (Pre-Dialysis) 159/90 mmHg BP Sitting (Post-Dialysis) 142/88 mmHg Concurrent Access: falseAV Fistula Upper Arm (Left) Arterial BP Standing (Pre-Dialysis) 163/93 mmHg Sitti ng Heart Rate Post-Dialysis 87 BPM Sitting Heart Rate Pre-Dialysis 87 BPM Temperatu re Post-Dialysis 97.2 degF Standing Heart Rate Pre-Dialysis 87 BPM Temperature Pre-Dialysis 97.3 degF September 25, 2023 In-Center Hemodialysis Treatment 5480-58-91K28:54:00.000Z 0102-41-87D17:41:16.000Z BP Sitting (Pre-Dialysis) 149/87 mmHg BP Sitting (Post-Dialysis) 158/97 mmHg Concurrent Access: falseAV Fistula Upper Arm (Left) Arterial BP Standing (Pre-Dialysis) 163/84 mmHg BP Standing (P ost-Dialysis) 160/78 mmHg Sitting Heart Rate Pre-Dialysis 88 BPM Sitting Heart Rate Post-Dialysis 85 BPM Standing Heart Rate Pre-Dialysis 90 BPM Standing Heart Rate Post-Dialysis 100 BPM Temperature Pre-Dialysis 98.1 degF Temperature Post -Dialysis 97.4 degF September 22, 2023 In-Center Hemodialysis Treatment 2100-19-07K27:51:10.000Z 2712-57-71Z45:34:55.000Z BP Sitting (Pre-Dialysis) 156/100 mmHg BP Sitting (Post-Dialysis) 153/93 mmHg Concurrent Access: falseAV Fistula Upper Arm (Left) Arterial BP Standing (Pre-Dialysis) 168/113 mmHg BP Standing (P ost-Dialysis) 172/95 mmHg Sitting Heart Rate Pre-Dialysis 88 BPM Sitting Heart Rate Post-Dialysis 82 BPM Standing Heart Rate Pre-Dialysis 90 BPM Standing Heart Rate Post-Dialysis 100 BPM Temperature Pre-Dialysis 97.9 degF Temperature Post -Dialysis 97.6 degF September 20, 2023 In-Center Hemodialysis Treatment 6391-77-66Q63:32:37.000Z 3529-52-79N04:17:37.000Z BP Sitting (Pre-Dialysis) 155/87 mmHg BP Sitting (Post-Dialysis) 132/81 mmHg Concurrent Access: falseAV Fistula Upper Arm (Left) Arterial BP Standing (Pre-Dialysis) 138/102 mmHg Sitti ng Heart Rate Post-Dialysis 77 BPM Sitting Heart Rate Pre-Dialysis 82 BPM Temperatu re Post-Dialysis 97.6 degF Standing Heart Rate Pre-Dialysis 96 BPM Temperature Pre-Dialysis 98.8 degF September 18, 2023 In-Center Hemodialysis Treatment 5920-86-76X48:59:16.000Z 5959-09-41H95:43:51.000Z BP Sitting (Pre-Dialysis) 147/83 mmHg BP Sitting (Post-Dialysis) 153/93 mmHg Concurrent Access: falseAV Fistula Upper Arm (Left) Arterial BP Standing (Pre-Dialysis) 144/93 mmHg BP Standing (P ost-Dialysis) 174/100 mmHg Sitting Heart Rate Pre-Dialysis 91 BPM Sitting Heart Rate Post-Dialysis 72 BPM Standing Heart Rate Pre-Dialysis 92 BPM Standing Heart Rate Post-Dialysis 80 BPM Temperature Pre-Dialysis 98.2 degF Temperature Post -Dialysis 97.3 degF September 15, 2023 In-Center Hemodialysis Treatment 6548-54-12K67:45:00.000Z 7243-75-23S25:52:31.000Z BP Sitting (Pre-Dialysis) 140/96 mmHg BP Sitting (Post-Dialysis) 148/81 mmHg Concurrent Access: falseAV Fistula Upper Arm (Left) Arterial BP Standing (Pre-Dialysis) 160/100 mmHg BP Standing (P ost-Dialysis) 126/81 mmHg Sitting Heart Rate Pre-Dialysis 87 BPM Sitting Heart Rate Post-Dialysis 91 BPM Standing Heart Rate Pre-Dialysis 88 BPM Standing Heart Rate Post-Dialysis 102 BPM Temperature Pre-Dialysis 97.4 degF Temperature Post -Dialysis 97.7 degF September 13, 2023 In-Center Hemodialysis Treatment [id number]:56:33.000Z 7689-15-17F65:44:53.000Z BP Sitting (Pre-Dialysis) 146/86 mmHg BP Sitting (Post-Dialysis) 139/73 mmHg Concurrent Access: falseAV Fistula Upper Arm (Left) Arterial BP Standing (Pre-Dialysis) 135/90 mmHg Sitti ng Heart Rate Post-Dialysis 88 BPM Sitting Heart Rate Pre-Dialysis 85 BPM Temperatu re Post-Dialysis 97.9 degF Standing Heart Rate Pre-Dialysis 92 BPM Temperature Pre-Dialysis 98.1 degF September 11, 2023 In-Center Hemodialysis Treatment 4581-86-87F49:52:00.000Z 1364-25-14Z70:44:05.000Z BP Sitting (Pre-Dialysis) 145/94 mmHg BP Sitting (Post-Dialysis) 181/100 mmHg Concurrent Access: falseAV Fistula Upper Arm (Left) Arterial BP Standing (Pre-Dialysis) 140/85 mmHg Sitti ng Heart Rate Post-Dialysis 83 BPM Sitting Heart Rate Pre-Dialysis 94 BPM Temperatu re Post-Dialysis 97.8 degF Standing Heart Rate Pre-Dialysis 100 BPM Temperature Pre-Dialysis 97.4 degF September 08, 2023 In-Center Hemodialysis Treatment [id number]:27:56.000Z 6150-42-52W59:59:36.000Z BP Sitting (Pre-Dialysis) 150/89 mmHg BP Sitting (Post-Dialysis) 143/73 mmHg Concurrent Access: falseAV Fistula Upper Arm (Left) Arterial BP Standing (Pre-Dialysis) 166/101 mmHg BP Standing (P ost-Dialysis) 138/70 mmHg Sitting Heart Rate Pre-Dialysis 86 BPM Sitting Heart Rate Post-Dialysis 85 BPM Standing Heart Rate Pre-Dialysis 88 BPM Standing Heart Rate Post-Dialysis 87 BPM Temperature Pre-Dialysis 98.2 degF Temperature Post -Dialysis 98.2 degF September 06, 2023 In-Center Hemodialysis Treatment [id number]:43:40.000Z [id number]:27:25.000Z BP Sitting (Pre-Dialysis) 139/87 mmHg BP Sitting (Post-Dialysis) 149/85 mmHg Concurrent Access: falseAV Fistula Upper Arm (Left) Arterial BP Standing (Pre-Dialysis) 174/99 mmHg Sitting Heart Rate Post-Dialysis 84 BPM Sitting Heart Rate Pre-Dialysis 96 BPM Temperatu re Post-Dialysis 98 degF Standing Heart Rate Pre-Dialysis 86 BPM Temperature Pre-Dialysis 98.6 degF September 04, 2023 In-Center Hemodialysis Treatment [id number]:37:18.000Z [id number]:16:28.000Z BP Sitting (Pre-Dialysis) 156/94 mmHg BP Sitting (Post-Dialysis) 135/82 mmHg Concurrent Access: falseAV Fistula Upper Arm (Left) Arterial BP Standing (Pre-Dialysis) 167/106 mmHg Sitti ng Heart Rate Post-Dialysis 89 BPM Sitting Heart Rate Pre-Dialysis 90 BPM Temperatu re Post-Dialysis 98.2 degF Standing Heart Rate Pre-Dialysis 91 BPM Temperature Pre-Dialysis 97.2 degF September 01, 2023 In-Center Hemodialysis Treatment [id number]:45:07.000Z [id number]:29:42.000Z BP Sitting (Pre-Dialysis) 143/82 mmHg BP Sitting (Post-Dialysis) 154/94 mmHg Concurrent Access: falseAV Fistula Upper Arm (Left) Arterial BP Standing (Pre-Dialysis) 144/95 mmHg Sitti ng Heart Rate Post-Dialysis 95 BPM Sitting Heart Rate Pre-Dialysis 88 BPM Temperatu re Post-Dialysis 97.9 degF Standing Heart Rate Pre-Dialysis 100 BPM Temperature Pre-Dialysis 97 degF August 30, 2023 In-Center Hemodialysis Treatment [id number]:45:00.000Z 8038-49-36C92:32:07.000Z BP Sitting (Pre-Dialysis) 154/85 mmHg BP Sitting (Post-Dialysis) 154/85 mmHg Concurrent Access: falseAV Fistula Upper Arm (Left) Arterial BP Standing (Pre-Dialysis) 166/86 mmHg BP Standing (P ost-Dialysis) 143/85 mmHg Sitting Heart Rate Pre-Dialysis 94 BPM Sitting Heart Rate Post-Dialysis 88 BPM Standing Heart Rate Pre-Dialysis 90 BPM Standing Heart Rate Post-Dialysis 109 BPM Temperature Pre-Dialysis 97.8 degF Temperature Post -Dialysis 98.1 degF August 28, 2023 In-Center Hemodialysis Treatment [id number]:45:02.000Z [id number]:21:42.000Z BP Sitting (Pre-Dialysis) 141/95 mmHg BP Sitting (Post-Dialysis) 150/84 mmHg Concurrent Access: falseAV Fistula Upper Arm (Left) Arterial BP Standing (Pre-Dialysis) 131/89 mmHg Sitti ng Heart Rate Post-Dialysis 91 BPM Sitting Heart Rate Pre-Dialysis 89 BPM Temperatu re Post-Dialysis 98.2 degF Standing Heart Rate Pre-Dialysis 67 BPM Temperature Pre-Dialysis 97.2 degF August 25, 2023 In-Center Hemodialysis Treatment [id number]:37:40.000Z [id number]:21:05.000Z BP Sitting (Pre-Dialysis) 152/95 mmHg BP Sitting (Post-Dialysis) 104/76 mmHg Concurrent Access: falseAV Fistula Upper Arm (Left) Arterial BP Standing (Pre-Dialysis) 149/96 mmHg Sitti ng Heart Rate Post-Dialysis 93 BPM Sitting Heart Rate Pre-Dialysis 85 BPM Temperatu re Post-Dialysis 97.2 degF Standing Heart Rate Pre-Dialysis 88 BPM Temperature Pre-Dialysis 97.2 degF August 23, 2023 In-Center Hemodialysis Treatment [id number]:43:08.000Z [id number]:28:33.000Z BP Sitting (Pre-Dialysis) 151/90 mmHg BP Sitting (Post-Dialysis) 147/91 mmHg Concurrent Access: falseAV Fistula Upper Arm (Left) Arterial BP Standing (Pre-Dialysis) 157/102 mmHg Sitti ng Heart Rate Post-Dialysis 93 BPM Sitting Heart Rate Pre-Dialysis 87 BPM Temperatu re Post-Dialysis 97.9 degF Standing Heart Rate Pre-Dialysis 92 BPM Temperature Pre-Dialysis 97.5 degF August 21, 2023 In-Center Hemodialysis Treatment [id number]:38:00.000Z 8584-63-25X99:18:57.000Z BP Sitting (Pre-Dialysis) 168/108 mmHg BP Sitting (Post-Dialysis) 165/64 mmHg Concurrent Access: falseAV Fistula Upper Arm (Left) Arterial BP Standing (Pre-Dialysis) 198/104 mmHg BP Standing (P ost-Dialysis) 149/69 mmHg Sitting Heart Rate Pre-Dialysis 85 BPM Sitting Heart Rate Post-Dialysis 99 BPM Standing Heart Rate Pre-Dialysis 87 BPM Standing Heart Rate Post-Dialysis 98 BPM Temperature Pre-Dialysis 98.2 degF Temperature Post -Dialysis 98.2 degF August 18, 2023 In-Center Hemodialysis Treatment [id number]:46:06.000Z [id number]:40:41.000Z BP Sitting (Pre-Dialysis) 138/77 mmHg BP Sitting (Post-Dialysis) 146/81 mmHg Concurrent Access: falseAV Fistula Upper Arm (Left) Arterial BP Standing (Pre-Dialysis) 141/89 mmHg BP Standing (P ost-Dialysis) 131/76 mmHg Sitting Heart Rate Pre-Dialysis 88 BPM Sitting Heart Rate Post-Dialysis 88 BPM Standing Heart Rate Pre-Dialysis 98 BPM Standing Heart Rate Post-Dialysis 100 BPM Temperature Pre-Dialysis 97.8 degF Temperature Post -Dialysis 98.1 degF August 16, 2023 In-Center Hemodialysis Treatment [id number]:53:20.000Z [id number]:37:05.000Z BP Sitting (Pre-Dialysis) 138/83 mmHg BP Sitting (Post-Dialysis) 158/95 mmHg Concurrent Access: falseAV Fistula Upper Arm (Left) Arterial BP Standing (Pre-Dialysis) 145/85 mmHg BP Standing (P ost-Dialysis) 167/105 mmHg Sitting Heart Rate Pre-Dialysis 89 BPM Sitting Heart Rate Post-Dialysis 89 BPM Standing Heart Rate Pre-Dialysis 90 BPM Standing Heart Rate Post-Dialysis 111 BPM Temperature Pre-Dialysis 97.2 degF Temperature Post -Dialysis 97.2 degF August 14, 2023 In-Center Hemodialysis Treatment [id number]:28:00.000Z 4613-30-66H27:15:45.000Z BP Sitting (Pre-Dialysis) 150/100 mmHg BP Sitting (Post-Dialysis) 147/87 mmHg Concurrent Access: falseAV Fistula Upper Arm (Left) Arterial BP Standing (Pre-Dialysis) 147/101 mmHg BP Standing (P ost-Dialysis) 136/80 mmHg Sitting Heart Rate Pre-Dialysis 97 BPM Sitting Heart Rate Post-Dialysis 92 BPM Standing Heart Rate Pre-Dialysis 101 BPM Standing Heart Rate Post-Dialysis 95 BPM Temperature Pre-Dialysis 98.1 degF Temperature Post -Dialysis 97.6 degF August 11, 2023 In-Center Hemodialysis Treatment [id number]:37:40.000Z [id number]:15:35.000Z BP Sitting (Pre-Dialysis) 166/70 mmHg BP Sitting (Post-Dialysis) 123/79 mmHg Concurrent Access: falseAV Fistula Upper Arm (Left) Arterial BP Standing (Pre-Dialysis) 139/93 mmHg Sitti ng Heart Rate Post-Dialysis 89 BPM Sitting Heart Rate Pre-Dialysis 78 BPM Temperatu re Post-Dialysis 98.2 degF Standing Heart Rate Pre-Dialysis 92 BPM Temperature Pre-Dialysis 98.3 degF August 09, 2023 In-Center Hemodialysis Treatment 7517-14-59M99:44:10.000Z 4631-39-16W54:33:36.000Z BP Sitting (Pre-Dialysis) 116/69 mmHg BP Sitting (Post-Dialysis) 117/70 mmHg Concurrent Access: falseAV Fistula Upper Arm (Left) Arterial BP Standing (Pre-Dialysis) 137/79 mmHg BP Standing (P ost-Dialysis) 119/66 mmHg Sitting Heart Rate Pre-Dialysis 80 BPM Sitting Heart Rate Post-Dialysis 95 BPM Standing Heart Rate Pre-Dialysis 88 BPM Standing Heart Rate Post-Dialysis 109 BPM Temperature Pre-Dialysis 97.2 degF Temperature Post -Dialysis 97.7 degF August 07, 2023 In-Center Hemodialysis Treatment [id number]:04:46.000Z 7638-76-15Z51:53:31.000Z BP Sitting (Pre-Dialysis) 146/80 mmHg BP Sitting (Post-Dialysis) 145/87 mmHg Concurrent Access: falseAV Fistula Upper Arm (Left) Arterial BP Standing (Pre-Dialysis) 156/103 mmHg BP Standing (P ost-Dialysis) 170/86 mmHg Sitting Heart Rate Pre-Dialysis 86 BPM Sitting Heart Rate Post-Dialysis 81 BPM Standing Heart Rate Pre-Dialysis 94 BPM Standing Heart Rate Post-Dialysis 101 BPM Temperature Pre-Dialysis 98.6 degF Temperature Post -Dialysis 97.5 degF August 04, 2023 In-Center Hemodialysis Treatment [id number]:40:07.000Z [id number]:23:02.000Z BP Sitting (Pre-Dialysis) 147/90 mmHg BP Sitting (Post-Dialysis) 142/89 mmHg Concurrent Access: falseAV Fistula Upper Arm (Left) Arterial BP Standing (Pre-Dialysis) 150/92 mmHg Sitti ng Heart Rate Post-Dialysis 96 BPM Sitting Heart Rate Pre-Dialysis 89 BPM Temperatu re Post-Dialysis 97.2 degF Standing Heart Rate Pre-Dialysis 90 BPM Temperature Pre-Dialysis 97.2 degF August 02, 2023 In-Center Hemodialysis Treatment [id number]:40:27.000Z 8395-03-55O90:31:17.000Z BP Sitting (Pre-Dialysis) 149/94 mmHg BP Sitting (Post-Dialysis) 118/76 mmHg Concurrent Access: falseAV Fistula Upper Arm (Left) Arterial BP Standing (Pre-Dialysis) 151/102 mmHg Sitti ng Heart Rate Post-Dialysis 98 BPM Sitting Heart Rate Pre-Dialysis 91 BPM Temperatu re Post-Dialysis 97.6 degF Standing Heart Rate Pre-Dialysis 82 BPM Temperature Pre-Dialysis 98.2 degF July 31, 2023 In-Center Hemodialysis Treatment [id number]:56:26.000Z 9938-55-79V81:42:41.000Z BP Sitting (Pre-Dialysis) 147/90 mmHg BP Sitting (Post-Dialysis) 133/79 mmHg Concurrent Access: falseAV Fistula Upper Arm (Left) Arterial BP Standing (Pre-Dialysis) 169/109 mmHg BP Standing (P ost-Dialysis) 131/77 mmHg Sitting Heart Rate Pre-Dialysis 93 BPM Sitting Heart Rate Post-Dialysis 95 BPM Standing Heart Rate Pre-Dialysis 93 BPM Standing Heart Rate Post-Dialysis 101 BPM Temperature Pre-Dialysis 97.7 degF Temperature Post -Dialysis 97.8 degF July 28, 2023 In-Center Hemodialysis Treatment [id number]:44:00.000Z 0360-07-94O49:28:02.000Z BP Sitting (Pre-Dialysis) 121/69 mmHg BP Sitting (Post-Dialysis) 119/61 mmHg Concurrent Access: falseAV Fistula Upper Arm (Left) Arterial BP Standing (Pre-Dialysis) 119/67 mmHg Sitti ng Heart Rate Post-Dialysis 91 BPM Sitting Heart Rate Pre-Dialysis 100 BPM Temperatu re Post-Dialysis 97.8 degF Standing Heart Rate Pre-Dialysis 105 BPM Temperature Pre-Dialysis 98.2 degF July 26, 2023 In-Center Hemodialysis Treatment [id number]:24:38.000Z 8535-42-61O06:08:23.000Z BP Sitting (Pre-Dialysis) 157/102 mmHg BP Sitting (Post-Dialysis) 106/56 mmHg Concurrent Access: falseAV Fistula Upper Arm (Left) Arterial BP Standing (Pre-Dialysis) 125/83 mmHg Sitti ng Heart Rate Post-Dialysis 109 BPM Sitting Heart Rate Pre-Dialysis 83 BPM Temperatu re Post-Dialysis 97.6 degF Standing Heart Rate Pre-Dialysis 88 BPM Temperature Pre-Dialysis 98.2 degF July 24, 2023 In-Center Hemodialysis Treatment 3427-43-12C94:33:58.000Z 5735-47-76D15:19:23.000Z BP Sitting (Pre-Dialysis) 154/95 mmHg BP Sitting (Post-Dialysis) 122/76 mmHg Concurrent Access: falseAV Fistula Upper Arm (Left) Arterial BP Standing (Pre-Dialysis) 139/97 mmHg BP Standing (P ost-Dialysis) 119/74 mmHg Sitting Heart Rate Pre-Dialysis 86 BPM Sitting Heart Rate Post-Dialysis 99 BPM Standing Heart Rate Pre-Dialysis 90 BPM Standing Heart Rate Post-Dialysis 117 BPM Temperature Pre-Dialysis 97.7 degF Temperature Post -Dialysis 97.7 degF July 21, 2023 In-Center Hemodialysis Treatment [id number]:54:21.000Z 8524-86-41Q61:39:21.000Z BP Sitting (Pre-Dialysis) 171/85 mmHg BP Sitting (Post-Dialysis) 130/69 mmHg Concurrent Access: falseAV Fistula Upper Arm (Left) Arterial BP Standing (Pre-Dialysis) 160/47 mmHg BP Standing (P ost-Dialysis) 152/72 mmHg Sitting Heart Rate Pre-Dialysis 94 BPM Sitting Heart Rate Post-Dialysis 85 BPM Standing Heart Rate Pre-Dialysis 78 BPM Standing Heart Rate Post-Dialysis 100 BPM Temperature Pre-Dialysis 97.2 degF Temperature Post -Dialysis 97.2 degF July 19, 2023 In-Center Hemodialysis Treatment [id number]:39:50.000Z 1990-90-70Z18:25:15.000Z BP Sitting (Pre-Dialysis) 147/89 mmHg BP Sitting (Post-Dialysis) 105/65 mmHg Concurrent Access: falseAV Fistula Upper Arm (Left) Arterial BP Standing (Pre-Dialysis) 168/95 mmHg BP Standing (P ost-Dialysis) 109/66 mmHg Sitting Heart Rate Pre-Dialysis 94 BPM Sitting Heart Rate Post-Dialysis 80 BPM Standing Heart Rate Pre-Dialysis 92 BPM Standing Heart Rate Post-Dialysis 92 BPM Temperature Pre-Dialysis 97.7 degF Temperature Post -Dialysis 97.2 degF July 17, 2023 In-Center Hemodialysis Treatment [id number]:44:00.000Z 0437-80-09D08:30:51.000Z BP Sitting (Pre-Dialysis) 157/103 mmHg BP Sitting (Post-Dialysis) 137/79 mmHg Concurrent Access: falseAV Fistula Upper Arm (Left) Arterial BP Standing (Pre-Dialysis) 146/91 mmHg Sitti ng Heart Rate Post-Dialysis 80 BPM Sitting Heart Rate Pre-Dialysis 90 BPM Temperatu re Post-Dialysis 97.7 degF Standing Heart Rate Pre-Dialysis 92 BPM Temperature Pre-Dialysis 97.9 degF July 14, 2023 In-Center Hemodialysis Treatment [id number]:35:06.000Z [id number]:21:21.000Z BP Sitting (Pre-Dialysis) 147/74 mmHg BP Sitting (Post-Dialysis) 114/75 mmHg Concurrent Access: falseAV Fistula Upper Arm (Left) Arterial BP Standing (Pre-Dialysis) 158/95 mmHg BP Standing (P ost-Dialysis) 114/78 mmHg Sitting Heart Rate Pre-Dialysis 81 BPM Sitting Heart Rate Post-Dialysis 92 BPM Standing Heart Rate Pre-Dialysis 85 BPM Standing Heart Rate Post-Dialysis 101 BPM Temperature Pre-Dialysis 98.1 degF Temperature Post -Dialysis 97.4 degF July 12, 2023 In-Center Hemodialysis Treatment [id number]:43:15.000Z 8068-12-32D06:29:55.000Z BP Sitting (Pre-Dialysis) 134/75 mmHg BP Sitting (Post-Dialysis) 152/81 mmHg Concurrent Access: falseAV Fistula Upper Arm (Left) Arterial BP Standing (Pre-Dialysis) 146/85 mmHg BP Standing (P ost-Dialysis) 146/80 mmHg Sitting Heart Rate Pre-Dialysis 94 BPM Sitting Heart Rate Post-Dialysis 106 BPM Standing Heart Rate Pre-Dialysis 96 BPM Standing Heart Rate Post-Dialysis 116 BPM Temperature Pre-Dialysis 98.1 degF Temperature Post -Dialysis 97.3 degF July 10, 2023 In-Center Hemodialysis Treatment [id number]:52:44.000Z 5639-58-73J72:41:29.000Z BP Sitting (Pre-Dialysis) 165/96 mmHg BP Sitting (Post-Dialysis) 123/79 mmHg Concurrent Access: falseAV Fistula Upper Arm (Left) Arterial BP Standing (Pre-Dialysis) 168/109 mmHg BP Standing (P ost-Dialysis) 133/80 mmHg Sitting Heart Rate Pre-Dialysis 88 BPM Sitting Heart Rate Post-Dialysis 89 BPM Standing Heart Rate Pre-Dialysis 91 BPM Standing Heart Rate Post-Dialysis 99 BPM Temperature Pre-Dialysis 97.5 degF Temperature Post -Dialysis 97.3 degF July 07, 2023 In-Center Hemodialysis Treatment [id number]:51:00.000Z 5057-23-02A57:37:20.000Z BP Sitting (Pre-Dialysis) 140/72 mmHg BP Sitting (Post-Dialysis) 119/70 mmHg Concurrent Access: falseAV Fistula Upper Arm (Left) Arterial BP Standing (Pre-Dialysis) 155/92 mmHg Sitti ng Heart Rate Post-Dialysis 88 BPM Sitting Heart Rate Pre-Dialysis 88 BPM Temperatu re Post-Dialysis 97.7 degF Standing Heart Rate Pre-Dialysis 86 BPM Temperature Pre-Dialysis 97.7 degF July 05, 2023 In-Center Hemodialysis Treatment 2520-50-65Q95:50:00.000Z 5970-18-80M85:37:07.000Z BP Sitting (Pre-Dialysis) 126/82 mmHg BP Sitting (Post-Dialysis) 132/83 mmHg Concurrent Access: falseAV Fistula Upper Arm (Left) Arterial BP Standing (Pre-Dialysis) 136/84 mmHg BP Standing (P ost-Dialysis) 115/75 mmHg Sitting Heart Rate Pre-Dialysis 85 BPM Sitting Heart Rate Post-Dialysis 104 BPM Standing Heart Rate Pre-Dialysis 83 BPM Standing Heart Rate Post-Dialysis 84 BPM Temperature Pre-Dialysis 97.3 degF Temperature Post -Dialysis 97.2 degF July 03, 2023 In-Center Hemodialysis Treatment [id number]:38:48.000Z 9613-39-13P55:22:08.000Z BP Sitting (Pre-Dialysis) 158/78 mmHg BP Sitting (Post-Dialysis) 143/81 mmHg Concurrent Access: falseAV Fistula Upper Arm (Left) Arterial BP Standing (Pre-Dialysis) 150/88 mmHg Sitti ng Heart Rate Post-Dialysis 86 BPM Sitting Heart Rate Pre-Dialysis 80 BPM Temperatu re Post-Dialysis 97.8 degF Standing Heart Rate Pre-Dialysis 88 BPM Temperature Pre-Dialysis 98.2 degF June 30, 2023 In-Center Hemodialysis Treatment 5415-47-43V49:50:00.000Z 9923-85-20X00:36:13.000Z BP Sitting (Pre-Dialysis) 161/95 mmHg BP Sitting (Post-Dialysis) 140/83 mmHg Concurrent Access: falseAV Fistula Upper Arm (Left) Arterial BP Standing (Pre-Dialysis) 161/104 mmHg BP Standing (P ost-Dialysis) 145/88 mmHg Sitting Heart Rate Pre-Dialysis 86 BPM Sitting Heart Rate Post-Dialysis 94 BPM Standing Heart Rate Pre-Dialysis 95 BPM Standing Heart Rate Post-Dialysis 115 BPM Temperature Pre-Dialysis 97.7 degF Temperature Post -Dialysis 97.7 degF June 28, 2023 In-Center Hemodialysis Treatment [id number]:45:00.000Z 0497-09-13J61:31:59.000Z BP Sitting (Pre-Dialysis) 173/95 mmHg BP Sitting (Post-Dialysis) 132/77 mmHg Concurrent Access: falseAV Fistula Upper Arm (Left) Arterial BP Standing (Pre-Dialysis) 187/112 mmHg BP Standing (P ost-Dialysis) 142/92 mmHg Sitting Heart Rate Pre-Dialysis 91 BPM Sitting Heart Rate Post-Dialysis 93 BPM Standing Heart Rate Pre-Dialysis 90 BPM Standing Heart Rate Post-Dialysis 115 BPM Temperature Pre-Dialysis 97.5 degF Temperature Post -Dialysis 97.7 degF June 26, 2023 In-Center Hemodialysis Treatment 4296-11-21E77:37:44.000Z 7342-44-84Z22:13:59.000Z BP Sitting (Pre-Dialysis) 178/80 mmHg BP Sitting (Post-Dialysis) 158/83 mmHg Concurrent Access: falseAV Fistula Upper Arm (Left) Arterial BP Standing (Pre-Dialysis) 169/84 mmHg Sitti ng Heart Rate Post-Dialysis 84 BPM Sitting Heart Rate Pre-Dialysis 87 BPM Temperatu re Post-Dialysis 97.2 degF Standing Heart Rate Pre-Dialysis 80 BPM Temperature Pre-Dialysis 98.2 degF June 23, 2023 In-Center Hemodialysis Treatment [id number]:31:36.000Z 0472-31-31E12:12:01.000Z BP Sitting (Pre-Dialysis) 159/87 mmHg BP Sitting (Post-Dialysis) 142/109 mmHg Concurrent Access: falseAV Fistula Upper Arm (Left) Arterial BP Standing (Pre-Dialysis) 165/94 mmHg BP Standing (P ost-Dialysis) 143/95 mmHg Sitting Heart Rate Pre-Dialysis 80 BPM Sitting Heart Rate Post-Dialysis 100 BPM Standing Heart Rate Pre-Dialysis 81 BPM Standing Heart Rate Post-Dialysis 95 BPM Temperature Pre-Dialysis 97.2 degF Temperature Post -Dialysis 97.3 degF June 21, 2023 In-Center Hemodialysis Treatment [id number]:34:00.000Z 4127-39-95Y39:18:55.000Z BP Sitting (Pre-Dialysis) 164/90 mmHg BP Sitting (Post-Dialysis) 121/65 mmHg Concurrent Access: falseAV Fistula Upper Arm (Left) Arterial BP Standing (Pre-Dialysis) 166/90 mmHg BP Standing (P ost-Dialysis) 109/64 mmHg Sitting Heart Rate Pre-Dialysis 86 BPM Sitting Heart Rate Post-Dialysis 88 BPM Standing Heart Rate Pre-Dialysis 85 BPM Standing Heart Rate Post-Dialysis 88 BPM Temperature Pre-Dialysis 98.1 degF Temperature Post -Dialysis 97.6 degF June 19, 2023 In-Center Hemodialysis Treatment [id number]:17:00.000Z 4673-56-98L45:25:28.000Z BP Sitting (Pre-Dialysis) 162/104 mmHg BP Sitting (Post-Dialysis) 132/80 mmHg Concurrent Access: falseAV Fistula Upper Arm (Left) Arterial BP Standing (Pre-Dialysis) 182/113 mmHg Sitti ng Heart Rate Post-Dialysis 92 BPM Sitting Heart Rate Pre-Dialysis 88 BPM Temperatu re Post-Dialysis 97.8 degF Standing Heart Rate Pre-Dialysis 92 BPM Temperature Pre-Dialysis 98.6 degF June 16, 2023 In-Center Hemodialysis Treatment 0269-48-22S40:46:00.000Z 4969-36-15N13:32:12.000Z BP Sitting (Pre-Dialysis) 154/86 mmHg BP Sitting (Post-Dialysis) 134/82 mmHg Concurrent Access: falseAV Fistula Upper Arm (Left) Arterial BP Standing (Pre-Dialysis) 143/95 mmHg Sitti ng Heart Rate Post-Dialysis 93 BPM Sitting Heart Rate Pre-Dialysis 86 BPM Temperatu re Post-Dialysis 97.8 degF Standing Heart Rate Pre-Dialysis 85 BPM Temperature Pre-Dialysis 97.6 degF June 14, 2023 In-Center Hemodialysis Treatment 6956-14-17C72:49:00.000Z 0446-12-38M12:32:13.000Z BP Sitting (Pre-Dialysis) 136/80 mmHg BP Sitting (Post-Dialysis) 126/72 mmHg Concurrent Access: falseAV Fistula Upper Arm (Left) Arterial BP Standing (Pre-Dialysis) 121/74 mmHg BP Standing (P ost-Dialysis) 142/109 mmHg Sitting Heart Rate Pre-Dialysis 88 BPM Sitting Heart Rate Post-Dialysis 94 BPM Standing Heart Rate Pre-Dialysis 92 BPM Standing Heart Rate Post-Dialysis 106 BPM Temperature Pre-Dialysis 97.1 degF June 12, 2023 In-Center Hemodialysis Treatment [id number]:54:47.000Z 7334-32-16B00:24:47.000Z BP Sitting (Pre-Dialysis) 171/99 mmHg BP Sitting (Post-Dialysis) 155/96 mmHg Concurrent Access: falseAV Fistula Upper Arm (Left) Arterial BP Standing (Pre-Dialysis) 183/116 mmHg Sitti ng Heart Rate Post-Dialysis 69 BPM Sitting Heart Rate Pre-Dialysis 93 BPM Temperatu re Post-Dialysis 97.2 degF Standing Heart Rate Pre-Dialysis 96 BPM Temperature Pre-Dialysis 98.1 degF June 09, 2023 In-Center Hemodialysis Treatment 5731-69-02U82:47:53.000Z 6230-88-22G24:32:28.000Z BP Sitting (Pre-Dialysis) 158/79 mmHg BP Sitting (Post-Dialysis) 152/65 mmHg Concurrent Access: falseAV Fistula Upper Arm (Left) Arterial BP Standing (Pre-Dialysis) 169/111 mmHg BP Standing (P ost-Dialysis) 115/69 mmHg Sitting Heart Rate Pre-Dialysis 80 BPM Sitting Heart Rate Post-Dialysis 88 BPM Standing Heart Rate Pre-Dialysis 88 BPM Standing Heart Rate Post-Dialysis 116 BPM Temperature Pre-Dialysis 97.9 degF Temperature Post -Dialysis 97 degF June 07, 2023 In-Center Hemodialysis Treatment [id number]:38:12.000Z 0214-76-38V14:23:37.000Z BP Sitting (Pre-Dialysis) 139/80 mmHg BP Sitting (Post-Dialysis) 134/75 mmHg Concurrent Access: falseAV Fistula Upper Arm (Left) Arterial BP Standing (Pre-Dialysis) 142/82 mmHg Sitti ng Heart Rate Post-Dialysis 84 BPM Sitting Heart Rate Pre-Dialysis 80 BPM Temperatu re Post-Dialysis 98.2 degF Standing Heart Rate Pre-Dialysis 85 BPM Temperature Pre-Dialysis 98.2 degF June 05, 2023 In-Center Hemodialysis Treatment 3791-83-34Z19:43:00.000Z 0049-60-48M22:29:21.000Z BP Sitting (Pre-Dialysis) 179/97 mmHg BP Sitting (Post-Dialysis) 143/79 mmHg Concurrent Access: falseAV Fistula Upper Arm (Left) Arterial BP Standing (Pre-Dialysis) 162/100 mmHg Sitti ng Heart Rate Post-Dialysis 85 BPM Sitting Heart Rate Pre-Dialysis 91 BPM Temperatu re Post-Dialysis 97.3 degF Standing Heart Rate Pre-Dialysis 89 BPM Temperature Pre-Dialysis 97.6 degF June 02, 2023 In-Center Hemodialysis Treatment 0010-30-94U35:41:59.000Z 5516-06-69Y44:27:24.000Z BP Sitting (Pre-Dialysis) 167/69 mmHg BP Sitting (Post-Dialysis) 145/92 mmHg Concurrent Access: falseAV Fistula Upper Arm (Left) Arterial BP Standing (Pre-Dialysis) 159/68 mmHg Sitting Heart Rate Post-Dialysis 99 BPM Sitting Heart Rate Pre-Dialysis 87 BPM Temperatu re Post-Dialysis 97 degF Standing Heart Rate Pre-Dialysis 80 BPM Temperature Pre-Dialysis 98.2 degF May 31, 2023 In-Center Hemodialysis Treatment 9911-98-60R17:53:38.000Z [id number]:46:58.000Z BP Sitting (Pre-Dialysis) 148/85 mmHg BP Sitting (Post-Dialysis) 132/81 mmHg Concurrent Access: falseAV Fistula Upper Arm (Left) Arterial BP Standing (Pre-Dialysis) 152/88 mmHg BP Standing (P ost-Dialysis) 152/84 mmHg Sitting Heart Rate Pre-Dialysis 95 BPM Sitting Heart Rate Post-Dialysis 99 BPM Standing Heart Rate Pre-Dialysis 97 BPM Standing Heart Rate Post-Dialysis 115 BPM Temperature Pre-Dialysis 97.1 degF Temperature Post -Dialysis 97.2 degF May 29, 2023 In-Center Hemodialysis Treatment 4912-54-90Q49:59:27.000Z 6693-52-88U47:44:02.000Z BP Sitting (Pre-Dialysis) 179/101 mmHg BP Sitting (Post-Dialysis) 144/92 mmHg Concurrent Access: falseAV Fistula Upper Arm (Left) Arterial BP Standing (Pre-Dialysis) 162/101 mmHg BP Standing (P ost-Dialysis) 144/92 mmHg Sitting Heart Rate Pre-Dialysis 83 BPM Sitting Heart Rate Post-Dialysis 88 BPM Standing Heart Rate Pre-Dialysis 92 BPM Standing Heart Rate Post-Dialysis 88 BPM Temperature Pre-Dialysis 97.2 degF Temperature Post -Dialysis 97.2 degF May 26, 2023 In-Center Hemodialysis Treatment 2436-28-43G35:43:26.000Z 1713-88-03E01:29:16.000Z BP Sitting (Pre-Dialysis) 174/88 mmHg BP Sitting (Post-Dialysis) 125/72 mmHg Concurrent Access: falseAV Fistula Upper Arm (Left) Arterial BP Standing (Pre-Dialysis) 165/85 mmHg BP Standing (P ost-Dialysis) 128/69 mmHg Sitting Heart Rate Pre-Dialysis 85 BPM Sitting Heart Rate Post-Dialysis 106 BPM Standing Heart Rate Pre-Dialysis 87 BPM Standing Heart Rate Post-Dialysis 10 BPM Temperature Pre-Dialysis 97.2 degF Temperature Post -Dialysis 97.7 degF May 24, 2023 In-Center Hemodialysis Treatment [id number]:40:00.000Z 4078-32-60Z44:23:02.000Z BP Sitting (Pre-Dialysis) 174/100 mmHg BP Sitting (Post-Dialysis) 145/89 mmHg Concurrent Access: falseAV Fistula Upper Arm (Left) Arterial BP Standing (Pre-Dialysis) 162/114 mmHg Sitti ng Heart Rate Post-Dialysis 83 BPM Sitting Heart Rate Pre-Dialysis 91 BPM Temperatu re Post-Dialysis 97.5 degF Standing Heart Rate Pre-Dialysis 90 BPM Temperature Pre-Dialysis 97.7 degF May 22, 2023 In-Center Hemodialysis Treatment [id number]:52:01.000Z 6226-98-86O51:29:06.000Z BP Sitting (Pre-Dialysis) 162/92 mmHg BP Sitting (Post-Dialysis) 178/97 mmHg Concurrent Access: falseAV Fistula Upper Arm (Left) Arterial BP Standing (Pre-Dialysis) 135/62 mmHg Sitti ng Heart Rate Post-Dialysis 66 BPM Sitting Heart Rate Pre-Dialysis 85 BPM Temperatu re Post-Dialysis 96.7 degF Standing Heart Rate Pre-Dialysis 79 BPM Temperature Pre-Dialysis 97.6 degF May 19, 2023 In-Center Hemodialysis Treatment [id number]:45:37.000Z 1230-87-08U22:31:27.000Z BP Sitting (Pre-Dialysis) 143/90 mmHg BP Sitting (Post-Dialysis) 170/94 mmHg Concurrent Access: falseAV Fistula Upper Arm (Left) Arterial BP Standing (Pre-Dialysis) 157/96 mmHg BP Standing (P ost-Dialysis) 177/97 mmHg Sitting Heart Rate Pre-Dialysis 83 BPM Sitting Heart Rate Post-Dialysis 92 BPM Standing Heart Rate Pre-Dialysis 106 BPM Standing Heart Rate Post-Dialysis 109 BPM Temperature Pre-Dialysis 97.8 degF Temperature Post -Dialysis 96.8 degF May 17, 2023 In-Center Hemodialysis Treatment [id number]:45:29.000Z [id number]:30:54.000Z BP Sitting (Pre-Dialysis) 142/79 mmHg BP Sitting (Post-Dialysis) 140/70 mmHg Concurrent Access: falseAV Fistula Upper Arm (Left) Arterial BP Standing (Pre-Dialysis) 149/97 mmHg Sitti ng Heart Rate Post-Dialysis 97 BPM Sitting Heart Rate Pre-Dialysis 88 BPM Temperatu re Post-Dialysis 98.1 degF Standing Heart Rate Pre-Dialysis 90 BPM Temperature Pre-Dialysis 97.1 degF May 15, 2023 In-Center Hemodialysis Treatment [id number]:37:18.000Z [id number]:22:18.000Z BP Sitting (Pre-Dialysis) 163/101 mmHg BP Sitting (Post-Dialysis) 143/79 mmHg Concurrent Access: falseAV Fistula Upper Arm (Left) Arterial BP Standing (Pre-Dialysis) 165/100 mmHg BP Standing (P ost-Dialysis) 131/82 mmHg Sitting Heart Rate Pre-Dialysis 86 BPM Sitting Heart Rate Post-Dialysis 88 BPM Standing Heart Rate Pre-Dialysis 86 BPM Standing Heart Rate Post-Dialysis 113 BPM Temperature Pre-Dialysis 97.7 degF Temperature Post -Dialysis 98 degF May 12, 2023 In-Center Hemodialysis Treatment [id number]:37:42.000Z [id number]:23:07.000Z BP Sitting (Pre-Dialysis) 150/95 mmHg BP Sitting (Post-Dialysis) 162/91 mmHg Concurrent Access: falseAV Fistula Upper Arm (Left) Arterial BP Standing (Pre-Dialysis) 138/84 mmHg BP Standing (P ost-Dialysis) 132/70 mmHg Sitting Heart Rate Pre-Dialysis 83 BPM Sitting Heart Rate Post-Dialysis 96 BPM Standing Heart Rate Pre-Dialysis 88 BPM Standing Heart Rate Post-Dialysis 111 BPM Temperature Pre-Dialysis 98.1 degF Temperature Post -Dialysis 97.2 degF May 10, 2023 In-Center Hemodialysis Treatment [id number]:32:34.000Z [id number]:15:04.000Z BP Sitting (Pre-Dialysis) 154/92 mmHg BP Sitting (Post-Dialysis) 131/65 mmHg Concurrent Access: falseAV Fistula Upper Arm (Left) Arterial BP Standing (Pre-Dialysis) 153/101 mmHg Sitti ng Heart Rate Post-Dialysis 106 BPM Sitting Heart Rate Pre-Dialysis 82 BPM Temperatu re Post-Dialysis 98.8 degF Standing Heart Rate Pre-Dialysis 84 BPM Temperature Pre-Dialysis 97.3 degF May 08, 2023 In-Center Hemodialysis Treatment [id number]:33:40.000Z [id number]:26:10.000Z BP Sitting (Pre-Dialysis) 171/95 mmHg BP Sitting (Post-Dialysis) 126/61 mmHg Concurrent Access: falseAV Fistula Upper Arm (Left) Arterial BP Standing (Pre-Dialysis) 163/93 mmHg Sitti ng Heart Rate Post-Dialysis 111 BPM Sitting Heart Rate Pre-Dialysis 88 BPM Temperatu re Post-Dialysis 96.8 degF Standing Heart Rate Pre-Dialysis 93 BPM Temperature Pre-Dialysis 97.2 degF May 05, 2023 In-Center Hemodialysis Treatment [id number]:38:40.000Z [id number]:23:40.000Z BP Sitting (Pre-Dialysis) 150/90 mmHg BP Sitting (Post-Dialysis) 135/70 mmHg Concurrent Access: falseAV Fistula Upper Arm (Left) Arterial BP Standing (Pre-Dialysis) 169/108 mmHg Sitti ng Heart Rate Post-Dialysis 87 BPM Sitting Heart Rate Pre-Dialysis 88 BPM Temperatu re Post-Dialysis 98.2 degF Standing Heart Rate Pre-Dialysis 92 BPM Temperature Pre-Dialysis 97.9 degF May 03, 2023 In-Center Hemodialysis Treatment [id number]:39:56.000Z 3951-89-57E33:29:59.000Z BP Sitting (Pre-Dialysis) 147/89 mmHg BP Sitting (Post-Dialysis) 117/74 mmHg Concurrent Access: falseAV Fistula Upper Arm (Left) Arterial BP Standing (Pre-Dialysis) 159/92 mmHg BP Standing (P ost-Dialysis) 122/72 mmHg Sitting Heart Rate Pre-Dialysis 81 BPM Sitting Heart Rate Post-Dialysis 105 BPM Standing Heart Rate Pre-Dialysis 84 BPM Standing Heart Rate Post-Dialysis 118 BPM Temperature Pre-Dialysis 97.2 degF May 01, 2023 In-Center Hemodialysis Treatment [id number]:43:03.000Z 0940-64-01I31:30:58.000Z BP Sitting (Pre-Dialysis) 19/98 mmHg BP Sitting (Post-Dialysis) 141/94 mmHg Concurrent Access: falseAV Fistula Upper Arm (Left) Arterial BP Standing (Pre-Dialysis) 149/90 mmHg BP Standing (P ost-Dialysis) 175/87 mmHg Sitting Heart Rate Pre-Dialysis 92 BPM Sitting Heart Rate Post-Dialysis 104 BPM Standing Heart Rate Pre-Dialysis 95 BPM Standing Heart Rate Post-Dialysis 119 BPM Temperature Pre-Dialysis 97.7 degF Temperature Post -Dialysis 97.4 degF April 28, 2023 In-Center Hemodialysis Treatment [id number]:36:00.000Z 7979-98-95F24:06:22.000Z BP Sitting (Pre-Dialysis) 147/92 mmHg BP Sitting (Post-Dialysis) 149/83 mmHg Concurrent Access: falseAV Fistula Upper Arm (Left) Arterial BP Standing (Pre-Dialysis) 152/96 mmHg BP Standing (P ost-Dialysis) 156/96 mmHg Sitting Heart Rate Pre-Dialysis 95 BPM Sitting Heart Rate Post-Dialysis 95 BPM Standing Heart Rate Pre-Dialysis 94 BPM Standing Heart Rate Post-Dialysis 112 BPM Temperature Pre-Dialysis 97.7 degF Temperature Post -Dialysis 97.2 degF April 25, 2023 In-Center Hemodialysis Treatment [id number]:35:00.000Z [id number]:22:35.000Z BP Sitting (Pre-Dialysis) 149/86 mmHg BP Sitting (Post-Dialysis) 157/71 mmHg Concurrent Access: falseAV Fistula Upper Arm (Left) Arterial BP Standing (Pre-Dialysis) 143/90 mmHg BP Standing (P ost-Dialysis) 120/72 mmHg Sitting Heart Rate Pre-Dialysis 85 BPM Sitting Heart Rate Post-Dialysis 92 BPM Standing Heart Rate Pre-Dialysis 87 BPM Standing Heart Rate Post-Dialysis 112 BPM Temperature Pre-Dialysis 97.3 degF Temperature Post -Dialysis 97.7 degF April 23, 2023 In-Center Hemodialysis Treatment [id number]:38:00.000Z [id number]:24:38.000Z BP Sitting (Pre-Dialysis) 149/83 mmHg BP Sitting (Post-Dialysis) 141/93 mmHg Concurrent Access: falseAV Fistula Upper Arm (Left) Arterial BP Standing (Pre-Dialysis) 141/95 mmHg BP Standing (P ost-Dialysis) 135/90 mmHg Sitting Heart Rate Pre-Dialysis 85 BPM Sitting Heart Rate Post-Dialysis 85 BPM Standing Heart Rate Pre-Dialysis 88 BPM Standing Heart Rate Post-Dialysis 80 BPM Temperature Pre-Dialysis 97.6 degF Temperature Post -Dialysis 97.7 degF April 21, 2023 In-Center Hemodialysis Treatment 7810-16-01W27:36:00.000Z 5365-79-89S49:20:31.000Z BP Sitting (Pre-Dialysis) 141/83 mmHg BP Sitting (Post-Dialysis) 149/65 mmHg Concurrent Access: falseAV Fistula Upper Arm (Left) Arterial BP Standing (Pre-Dialysis) 136/88 mmHg BP Standing (P ost-Dialysis) 109/70 mmHg Sitting Heart Rate Pre-Dialysis 88 BPM Sitting Heart Rate Post-Dialysis 93 BPM Standing Heart Rate Pre-Dialysis 98 BPM Standing Heart Rate Post-Dialysis 108 BPM Temperature Pre-Dialysis 98.2 degF Temperature Post -Dialysis 97.6 degF April 19, 2023 In-Center Hemodialysis Treatment [id number]:30:12.000Z [id number]:15:23.000Z BP Sitting (Pre-Dialysis) 129/74 mmHg BP Sitting (Post-Dialysis) 123/77 mmHg Concurrent Access: falseAV Fistula Upper Arm (Left) Arterial BP Standing (Pre-Dialysis) 130/84 mmHg Sitti ng Heart Rate Post-Dialysis 92 BPM Sitting Heart Rate Pre-Dialysis 83 BPM Temperatu re Post-Dialysis 97.2 degF Standing Heart Rate Pre-Dialysis 87 BPM Temperature Pre-Dialysis 97.7 degF April 17, 2023 In-Center Hemodialysis Treatment [id number]:45:00.000Z 4658-05-93G08:31:22.000Z BP Sitting (Pre-Dialysis) 144/92 mmHg BP Sitting (Post-Dialysis) 127/82 mmHg Concurrent Access: falseAV Fistula Upper Arm (Left) Arterial BP Standing (Pre-Dialysis) 147/97 mmHg BP Standing (P ost-Dialysis) 131/78 mmHg Sitting Heart Rate Pre-Dialysis 89 BPM Sitting Heart Rate Post-Dialysis 93 BPM Standing Heart Rate Pre-Dialysis 88 BPM Standing Heart Rate Post-Dialysis 120 BPM Temperature Pre-Dialysis 97.7 degF Temperature Post -Dialysis 97.8 degF April 14, 2023 In-Center Hemodialysis Treatment [id number]:58:00.000Z [id number]:29:29.000Z BP Sitting (Pre-Dialysis) 122/69 mmHg BP Sitting (Post-Dialysis) 103/59 mmHg Concurrent Access: falseAV Fistula Upper Arm (Left) Arterial BP Standing (Pre-Dialysis) 119/71 mmHg BP Standing (P ost-Dialysis) 101/57 mmHg Sitting Heart Rate Pre-Dialysis 80 BPM Sitting Heart Rate Post-Dialysis 59 BPM Standing Heart Rate Pre-Dialysis 78 BPM Standing Heart Rate Post-Dialysis 58 BPM Temperature Pre-Dialysis 97.7 degF Temperature Post -Dialysis 97.6 degF April 12, 2023 In-Center Hemodialysis Treatment [id number]:32:31.000Z [id number]:19:11.000Z BP Sitting (Pre-Dialysis) 145/88 mmHg BP Sitting (Post-Dialysis) 104/62 mmHg Concurrent Access: falseAV Fistula Upper Arm (Left) Arterial BP Standing (Pre-Dialysis) 146/87 mmHg BP Standing (P ost-Dialysis) 147/80 mmHg Sitting Heart Rate Pre-Dialysis 80 BPM Sitting Heart Rate Post-Dialysis 105 BPM Standing Heart Rate Pre-Dialysis 87 BPM Standing Heart Rate Post-Dialysis 112 BPM Temperature Pre-Dialysis 96.8 degF Temperature Post -Dialysis 97.4 degF April 10, 2023 In-Center Hemodialysis Treatment [id number]:48:00.000Z 0389-47-39K77:35:34.000Z BP Sitting (Pre-Dialysis) 146/89 mmHg BP Sitting (Post-Dialysis) 129/69 mmHg Concurrent Access: falseAV Fistula Upper Arm (Left) Arterial BP Standing (Pre-Dialysis) 165/89 mmHg BP Standing (P ost-Dialysis) 130/72 mmHg Sitting Heart Rate Pre-Dialysis 85 BPM Sitting Heart Rate Post-Dialysis 97 BPM Standing Heart Rate Pre-Dialysis 79 BPM Standing Heart Rate Post-Dialysis 97 BPM Temperature Pre-Dialysis 97.6 degF Temperature Post -Dialysis 97.3 degF April 07, 2023 In-Center Hemodialysis Treatment [id number]:36:00.000Z 8334-39-54I06:10:39.000Z BP Sitting (Pre-Dialysis) 150/94 mmHg BP Sitting (Post-Dialysis) 129/69 mmHg Concurrent Access: falseAV Fistula Upper Arm (Left) Arterial BP Standing (Pre-Dialysis) 134/89 mmHg BP Standing (P ost-Dialysis) 151/88 mmHg Sitting Heart Rate Pre-Dialysis 81 BPM Sitting Heart Rate Post-Dialysis 107 BPM Standing Heart Rate Pre-Dialysis 89 BPM Standing Heart Rate Post-Dialysis 117 BPM Temperature Pre-Dialysis 97.7 degF Temperature Post -Dialysis 97.6 degF April 05, 2023 In-Center Hemodialysis Treatment [id number]:38:00.000Z [id number]:23:25.000Z BP Sitting (Pre-Dialysis) 145/89 mmHg BP Sitting (Post-Dialysis) 116/63 mmHg Concurrent Access: falseAV Fistula Upper Arm (Left) Arterial BP Standing (Pre-Dialysis) 142/88 mmHg Sitting Heart Rate Post-Dialysis 104 BPM Sitting Heart Rate Pre-Dialysis 82 BPM Standing Heart Rate Pre-Dialysis 85 BPM Temperature Pre-Dialysis 97.2 degF April 03, 2023 In-Center Hemodialysis Treatment 6399-10-54M43:44:00.000Z 6734-40-45Y61:31:18.000Z BP Sitting (Pre-Dialysis) 144/83 mmHg BP Sitting (Post-Dialysis) 164/77 mmHg Concurrent Access: falseAV Fistula Upper Arm (Left) Arterial BP Standing (Pre-Dialysis) 142/85 mmHg BP Standing (P ost-Dialysis) 133/71 mmHg Sitting Heart Rate Pre-Dialysis 85 BPM Sitting Heart Rate Post-Dialysis 103 BPM Standing Heart Rate Pre-Dialysis 90 BPM Standing Heart Rate Post-Dialysis 109 BPM Temperature Pre-Dialysis 97.7 degF Temperature Post -Dialysis 97.7 degF March 31, 2023 In-Center Hemodialysis Treatment 7946-63-57M06:43:00.000Z 8873-07-97B16:28:25.000Z BP Sitting (Pre-Dialysis) 126/78 mmHg BP Sitting (Post-Dialysis) 136/71 mmHg Concurrent Access: falseAV Fistula Upper Arm (Left) Arterial BP Standing (Pre-Dialysis) 126/87 mmHg Sitti ng Heart Rate Post-Dialysis 87 BPM Sitting Heart Rate Pre-Dialysis 84 BPM Temperatu re Post-Dialysis 97.6 degF Standing Heart Rate Pre-Dialysis 86 BPM Temperature Pre-Dialysis 98.1 degF March 29, 2023 In-Center Hemodialysis Treatment [id number]:42:28.000Z [id number]:27:53.000Z BP Sitting (Pre-Dialysis) 145/80 mmHg BP Sitting (Post-Dialysis) 141/80 mmHg Concurrent Access: falseAV Fistula Upper Arm (Left) Arterial BP Standing (Pre-Dialysis) 142/82 mmHg Sitti ng Heart Rate Post-Dialysis 88 BPM Sitting Heart Rate Pre-Dialysis 79 BPM Temperatu re Post-Dialysis 97.2 degF Standing Heart Rate Pre-Dialysis 80 BPM Temperature Pre-Dialysis 97.2 degF March 27, 2023 In-Center Hemodialysis Treatment [id number]:39:34.000Z 2673-89-26B41:34:09.000Z BP Sitting (Pre-Dialysis) 158/95 mmHg BP Sitting (Post-Dialysis) 160/83 mmHg Concurrent Access: falseAV Fistula Upper Arm (Left) Arterial BP Standing (Pre-Dialysis) 145/90 mmHg BP Standing (P ost-Dialysis) 156/98 mmHg Sitting Heart Rate Pre-Dialysis 90 BPM Sitting Heart Rate Post-Dialysis 87 BPM Standing Heart Rate Pre-Dialysis 90 BPM Standing Heart Rate Post-Dialysis 82 BPM Temperature Pre-Dialysis 98.2 degF Temperature Post -Dialysis 98.2 degF March 24, 2023 In-Center Hemodialysis Treatment 7622-15-31J40:40:56.000Z 4000-96-47M73:10:31.000Z BP Sitting (Pre-Dialysis) 121/71 mmHg BP Sitting (Post-Dialysis) 113/78 mmHg Concurrent Access: falseAV Fistula Upper Arm (Left) Arterial BP Standing (Pre-Dialysis) 136/72 mmHg BP Standing (P ost-Dialysis) 125/79 mmHg Sitting Heart Rate Pre-Dialysis 81 BPM Sitting Heart Rate Post-Dialysis 97 BPM Standing Heart Rate Pre-Dialysis 85 BPM Standing Heart Rate Post-Dialysis 106 BPM Temperature Pre-Dialysis 97.6 degF Temperature Post -Dialysis 97.5 degF March 22, 2023 In-Center Hemodialysis Treatment [id number]:41:00.000Z [id number]:29:58.000Z BP Sitting (Pre-Dialysis) 152/91 mmHg BP Sitting (Post-Dialysis) 128/66 mmHg Concurrent Access: falseAV Fistula Upper Arm (Left) Arterial BP Standing (Pre-Dialysis) 137/85 mmHg Sitti ng Heart Rate Post-Dialysis 62 BPM Sitting Heart Rate Pre-Dialysis 85 BPM Temperatu re Post-Dialysis 97.2 degF Standing Heart Rate Pre-Dialysis 89 BPM Temperature Pre-Dialysis 97.6 degF March 20, 2023 In-Center Hemodialysis Treatment 3827-56-74T94:36:00.000Z 5308-69-92F28:23:28.000Z BP Sitting (Pre-Dialysis) 152/95 mmHg BP Sitting (Post-Dialysis) 148/88 mmHg Concurrent Access: falseAV Fistula Upper Arm (Left) Arterial BP Standing (Pre-Dialysis) 166/94 mmHg Sitti ng Heart Rate Post-Dialysis 102 BPM Sitting Heart Rate Pre-Dialysis 93 BPM Temperatu re Post-Dialysis 98.2 degF Standing Heart Rate Pre-Dialysis 92 BPM Temperature Pre-Dialysis 97.6 degF March 17, 2023 In-Center Hemodialysis Treatment [id number]:50:00.000Z 8667-19-19B47:32:00.000Z BP Sitting (Pre-Dialysis) 172/78 mmHg BP Sitting (Post-Dialysis) 131/72 mmHg Concurrent Access: falseAV Fistula Upper Arm (Left) Arterial BP Standing (Pre-Dialysis) 177/76 mmHg Sitti ng Heart Rate Post-Dialysis 97 BPM Sitting Heart Rate Pre-Dialysis 88 BPM Temperatu re Post-Dialysis 97.4 degF Standing Heart Rate Pre-Dialysis 86 BPM Temperature Pre-Dialysis 97.7 degF March 15, 2023 In-Center Hemodialysis Treatment [id number]:45:24.000Z 4878-66-28Q07:30:24.000Z BP Sitting (Pre-Dialysis) 139/85 mmHg BP Sitting (Post-Dialysis) 145/99 mmHg Concurrent Access: falseAV Fistula Upper Arm (Left) Arterial BP Standing (Pre-Dialysis) 131/87 mmHg BP Standing (P ost-Dialysis) 152/99 mmHg Sitting Heart Rate Pre-Dialysis 90 BPM Sitting Heart Rate Post-Dialysis 113 BPM Standing Heart Rate Pre-Dialysis 92 BPM Standing Heart Rate Post-Dialysis 100 BPM Temperature Pre-Dialysis 97.7 degF Temperature Post -Dialysis 97.2 degF March 13, 2023 In-Center Hemodialysis Treatment [id number]:36:33.000Z 4850-09-47E92:19:03.000Z BP Sitting (Pre-Dialysis) 159/98 mmHg BP Sitting (Post-Dialysis) 145/81 mmHg Concurrent Access: falseAV Fistula Upper Arm (Left) Arterial BP Standing (Pre-Dialysis) 152/87 mmHg Sitti ng Heart Rate Post-Dialysis 70 BPM Sitting Heart Rate Pre-Dialysis 80 BPM Temperatu re Post-Dialysis 98.2 degF Standing Heart Rate Pre-Dialysis 79 BPM Temperature Pre-Dialysis 97.2 degF March 10, 2023 In-Center Hemodialysis Treatment [id number]:39:39.000Z 6505-71-96K79:25:04.000Z BP Sitting (Pre-Dialysis) 133/75 mmHg BP Sitting (Post-Dialysis) 156/84 mmHg Concurrent Access: falseAV Fistula Upper Arm (Left) Arterial BP Standing (Pre-Dialysis) 118/86 mmHg Sitti ng Heart Rate Post-Dialysis 80 BPM Sitting Heart Rate Pre-Dialysis 72 BPM Temperatu re Post-Dialysis 97.6 degF Standing Heart Rate Pre-Dialysis 74 BPM Temperature Pre-Dialysis 97.2 degF March 08, 2023 In-Center Hemodialysis Treatment [id number]:55:00.000Z [id number]:43:02.000Z BP Sitting (Pre-Dialysis) 158/89 mmHg BP Sitting (Post-Dialysis) 148/91 mmHg Concurrent Access: falseAV Fistula Upper Arm (Left) Arterial BP Standing (Pre-Dialysis) 165/96 mmHg Sitting Heart Rate Post-Dialysis 86 BPM Sitting Heart Rate Pre-Dialysis 93 BPM Standing Heart Rate Pre-Dialysis 93 BPM Temperature Pre-Dialysis 97.9 degF March 06, 2023 In-Center Hemodialysis Treatment [id number]:32:00.000Z 9095-36-11I08:20:32.000Z BP Sitting (Pre-Dialysis) 149/86 mmHg BP Sitting (Post-Dialysis) 154/96 mmHg Concurrent Access: falseAV Fistula Upper Arm (Left) Arterial BP Standing (Pre-Dialysis) 163/92 mmHg BP Standing (P ost-Dialysis) 128/99 mmHg Sitting Heart Rate Pre-Dialysis 89 BPM Sitting Heart Rate Post-Dialysis 95 BPM Standing Heart Rate Pre-Dialysis 97 BPM Standing Heart Rate Post-Dialysis 123 BPM Temperature Pre-Dialysis 98.1 degF Temperature Post -Dialysis 97.3 degF March 03, 2023 In-Center Hemodialysis Treatment 0619-02-84M27:05:00.000Z 5142-32-50Y77:37:52.000Z BP Sitting (Pre-Dialysis) 131/77 mmHg BP Sitting (Post-Dialysis) 140/78 mmHg Concurrent Access: falseAV Fistula Upper Arm (Left) Arterial BP Standing (Pre-Dialysis) 135/76 mmHg Sitti ng Heart Rate Post-Dialysis 94 BPM Sitting Heart Rate Pre-Dialysis 88 BPM Temperatu re Post-Dialysis 97.4 degF Standing Heart Rate Pre-Dialysis 80 BPM Temperature Pre-Dialysis 98.1 degF March 01, 2023 In-Center Hemodialysis Treatment 4478-43-12O30:28:00.000Z 6005-38-58A48:25:04.000Z BP Sitting (Pre-Dialysis) 146/90 mmHg BP Sitting (Post-Dialysis) 119/78 mmHg Concurrent Access: falseAV Fistula Upper Arm (Left) Arterial BP Standing (Pre-Dialysis) 173/81 mmHg BP Standing (P ost-Dialysis) 127/71 mmHg Sitting Heart Rate Pre-Dialysis 82 BPM Sitting Heart Rate Post-Dialysis 96 BPM Standing Heart Rate Pre-Dialysis 89 BPM Standing Heart Rate Post-Dialysis 95 BPM Temperature Pre-Dialysis 98.2 degF Temperature Post -Dialysis 97.2 degF February 27, 2023 In-Center Hemodialysis Treatment [id number]:38:26.000Z 8526-69-06B37:20:06.000Z BP Sitting (Pre-Dialysis) 143/84 mmHg BP Sitting (Post-Dialysis) 120/79 mmHg Concurrent Access: falseAV Fistula Upper Arm (Left) Arterial BP Standing (Pre-Dialysis) 141/92 mmHg BP Standing (P ost-Dialysis) 136/76 mmHg Sitting Heart Rate Pre-Dialysis 86 BPM Sitting Heart Rate Post-Dialysis 112 BPM Standing Heart Rate Pre-Dialysis 93 BPM Standing Heart Rate Post-Dialysis 118 BPM Temperature Pre-Dialysis 97.7 degF Temperature Post -Dialysis 97.4 degF February 24, 2023 In-Center Hemodialysis Treatment 3674-06-06O18:27:00.000Z 0393-06-02H38:16:30.000Z BP Sitting (Pre-Dialysis) 145/81 mmHg BP Sitting (Post-Dialysis) 117/58 mmHg Concurrent Access: falseAV Fistula Upper Arm (Left) Arterial BP Standing (Pre-Dialysis) 151/96 mmHg Sitti ng Heart Rate Post-Dialysis 99 BPM Sitting Heart Rate Pre-Dialysis 90 BPM Temperatu re Post-Dialysis 97.2 degF Standing Heart Rate Pre-Dialysis 95 BPM Temperature Pre-Dialysis 97.9 degF February 22, 2023 In-Center Hemodialysis Treatment [id number]:48:00.000Z 8219-02-18B54:35:23.000Z BP Sitting (Pre-Dialysis) 150/103 mmHg BP Sitting (Post-Dialysis) 128/73 mmHg Concurrent Access: falseAV Fistula Upper Arm (Left) Arterial BP Standing (Pre-Dialysis) 148/108 mmHg BP Standing (P ost-Dialysis) 110/64 mmHg Sitting Heart Rate Pre-Dialysis 87 BPM Sitting Heart Rate Post-Dialysis 97 BPM Standing Heart Rate Pre-Dialysis 90 BPM Standing Heart Rate Post-Dialysis 97 BPM Temperature Pre-Dialysis 97.9 degF Temperature Post -Dialysis 97.9 degF February 20, 2023 In-Center Hemodialysis Treatment [id number]:35:22.000Z 8723-73-20Z74:18:42.000Z BP Sitting (Pre-Dialysis) 134/86 mmHg BP Sitting (Post-Dialysis) 129/67 mmHg Concurrent Access: falseAV Fistula Upper Arm (Left) Arterial BP Standing (Pre-Dialysis) 137/91 mmHg BP Standing (P ost-Dialysis) 119/65 mmHg Sitting Heart Rate Pre-Dialysis 85 BPM Sitting Heart Rate Post-Dialysis 69 BPM Standing Heart Rate Pre-Dialysis 99 BPM Standing Heart Rate Post-Dialysis 68 BPM Temperature Pre-Dialysis 98.2 degF Temperature Post -Dialysis 97.2 degF February 17, 2023 In-Center Hemodialysis Treatment [id number]:30:00.000Z 9234-10-88N02:17:58.000Z BP Sitting (Pre-Dialysis) 137/90 mmHg BP Sitting (Post-Dialysis) 130/76 mmHg Concurrent Access: falseAV Fistula Upper Arm (Left) Arterial BP Standing (Pre-Dialysis) 137/95 mmHg BP Standing (P ost-Dialysis) 147/95 mmHg Sitting Heart Rate Pre-Dialysis 82 BPM Sitting Heart Rate Post-Dialysis 79 BPM Standing Heart Rate Pre-Dialysis 86 BPM Standing Heart Rate Post-Dialysis 105 BPM Temperature Pre-Dialysis 97 degF Temperature Post -Dialysis 97.6 degF February 15, 2023 In-Center Hemodialysis Treatment [id number]:12:00.000Z [id number]:38:27.000Z BP Sitting (Pre-Dialysis) 152/94 mmHg BP Sitting (Post-Dialysis) 121/69 mmHg Concurrent Access: falseAV Fistula Upper Arm (Left) Arterial BP Standing (Pre-Dialysis) 124/89 mmHg BP Standing (P ost-Dialysis) 130/68 mmHg Sitting Heart Rate Pre-Dialysis 85 BPM Sitting Heart Rate Post-Dialysis 100 BPM Standing Heart Rate Pre-Dialysis 85 BPM Standing Heart Rate Post-Dialysis 120 BPM Temperature Pre-Dialysis 97.3 degF Temperature Post -Dialysis 97.5 degF February 13, 2023 In-Center Hemodialysis Treatment [id number]:42:15.000Z 3704-16-66T22:26:00.000Z BP Sitting (Pre-Dialysis) 175/99 mmHg BP Sitting (Post-Dialysis) 151/86 mmHg Concurrent Access: falseAV Fistula Upper Arm (Left) Arterial BP Standing (Pre-Dialysis) 149/90 mmHg BP Standing (P ost-Dialysis) 153/80 mmHg Sitting Heart Rate Pre-Dialysis 89 BPM Sitting Heart Rate Post-Dialysis 86 BPM Standing Heart Rate Pre-Dialysis 95 BPM Standing Heart Rate Post-Dialysis 84 BPM Temperature Pre-Dialysis 97.6 degF Temperature Post -Dialysis 97.4 degF February 10, 2023 In-Center Hemodialysis Treatment [id number]:42:53.000Z [id number]:24:58.000Z BP Sitting (Pre-Dialysis) 150/82 mmHg BP Sitting (Post-Dialysis) 153/78 mmHg Concurrent Access: falseAV Fistula Upper Arm (Left) Arterial BP Standing (Pre-Dialysis) 147/79 mmHg Sitti ng Heart Rate Post-Dialysis 91 BPM Sitting Heart Rate Pre-Dialysis 80 BPM Temperatu re Post-Dialysis 97.2 degF Standing Heart Rate Pre-Dialysis 87 BPM Temperature Pre-Dialysis 97.7 degF February 08, 2023 In-Center Hemodialysis Treatment 1320-92-05C15:39:00.000Z 5135-58-87L13:08:26.000Z BP Sitting (Pre-Dialysis) 144/89 mmHg BP Sitting (Post-Dialysis) 134/68 mmHg Concurrent Access: falseAV Fistula Upper Arm (Left) Arterial BP Standing (Pre-Dialysis) 135/100 mmHg BP Standing (P ost-Dialysis) 129/72 mmHg Sitting Heart Rate Pre-Dialysis 86 BPM Sitting Heart Rate Post-Dialysis 89 BPM Standing Heart Rate Pre-Dialysis 94 BPM Standing Heart Rate Post-Dialysis 93 BPM Temperature Pre-Dialysis 97.4 degF Temperature Post -Dialysis 97.6 degF February 06, 2023 In-Center Hemodialysis Treatment [id number]:45:00.000Z 8527-85-03R94:32:39.000Z BP Sitting (Pre-Dialysis) 140/90 mmHg BP Sitting (Post-Dialysis) 137/92 mmHg Concurrent Access: falseAV Fistula Upper Arm (Left) Arterial BP Standing (Pre-Dialysis) 156/105 mmHg BP Standing (P ost-Dialysis) 146/88 mmHg Sitting Heart Rate Pre-Dialysis 93 BPM Sitting Heart Rate Post-Dialysis 100 BPM Standing Heart Rate Pre-Dialysis 98 BPM Standing Heart Rate Post-Dialysis 119 BPM Temperature Pre-Dialysis 97.7 degF Temperature Post -Dialysis 97.9 degF February 03, 2023 In-Center Hemodialysis Treatment [id number]:54:30.000Z [id number]:39:30.000Z BP Sitting (Pre-Dialysis) 145/83 mmHg BP Sitting (Post-Dialysis) 141/84 mmHg Concurrent Access: falseAV Fistula Upper Arm (Left) Arterial BP Standing (Pre-Dialysis) 153/100 mmHg Sitti ng Heart Rate Post-Dialysis 91 BPM Sitting Heart Rate Pre-Dialysis 86 BPM Temperatu re Post-Dialysis 97.6 degF Standing Heart Rate Pre-Dialysis 98 BPM Temperature Pre-Dialysis 98.1 degF February 01, 2023 In-Center Hemodialysis Treatment [id number]:45:00.000Z [id number]:32:50.000Z BP Sitting (Pre-Dialysis) 161/99 mmHg BP Sitting (Post-Dialysis) 126/77 mmHg Concurrent Access: falseAV Fistula Upper Arm (Left) Arterial BP Standing (Pre-Dialysis) 141/97 mmHg BP Standing (P ost-Dialysis) 149/65 mmHg Sitting Heart Rate Pre-Dialysis 89 BPM Sitting Heart Rate Post-Dialysis 100 BPM Standing Heart Rate Pre-Dialysis 92 BPM Standing Heart Rate Post-Dialysis 119 BPM Temperature Pre-Dialysis 98.1 degF Temperature Post -Dialysis 97.2 degF January 30, 2023 In-Center Hemodialysis Treatment [id number]:44:00.000Z 4178-56-62W38:16:59.000Z BP Sitting (Pre-Dialysis) 167/81 mmHg BP Sitting (Post-Dialysis) 147/76 mmHg Concurrent Access: falseAV Fistula Upper Arm (Left) Arterial BP Standing (Pre-Dialysis) 150/89 mmHg BP Standing (P ost-Dialysis) 127/88 mmHg Sitting Heart Rate Pre-Dialysis 84 BPM Sitting Heart Rate Post-Dialysis 88 BPM Standing Heart Rate Pre-Dialysis 88 BPM Standing Heart Rate Post-Dialysis 107 BPM Temperature Pre-Dialysis 97.6 degF Temperature Post -Dialysis 98.2 degF January 27, 2023 In-Center Hemodialysis Treatment 1914-16-49Y74:37:14.000Z 3623-82-18M99:16:24.000Z BP Sitting (Pre-Dialysis) 153/96 mmHg BP Sitting (Post-Dialysis) 159/79 mmHg Concurrent Access: falseAV Fistula Upper Arm (Left) Arterial BP Standing (Pre-Dialysis) 156/98 mmHg BP Standing (P ost-Dialysis) 149/68 mmHg Sitting Heart Rate Pre-Dialysis 89 BPM Sitting Heart Rate Post-Dialysis 90 BPM Standing Heart Rate Pre-Dialysis 90 BPM Standing Heart Rate Post-Dialysis 90 BPM Temperature Pre-Dialysis 98.1 degF Temperature Post -Dialysis 97.2 degF January 25, 2023 In-Center Hemodialysis Treatment [id number]:40:00.000Z 0900-41-43D03:30:34.000Z BP Sitting (Pre-Dialysis) 152/94 mmHg BP Sitting (Post-Dialysis) 149/84 mmHg Concurrent Access: falseAV Fistula Upper Arm (Left) Arterial BP Standing (Pre-Dialysis) 164/106 mmHg Sitti ng Heart Rate Post-Dialysis 86 BPM Sitting Heart Rate Pre-Dialysis 86 BPM Temperatu re Post-Dialysis 98.1 degF Standing Heart Rate Pre-Dialysis 80 BPM Temperature Pre-Dialysis 97.9 degF January 23, 2023 In-Center Hemodialysis Treatment 3507-17-61N69:02:00.000Z 4490-08-32I65:46:34.000Z BP Sitting (Pre-Dialysis) 208/94 mmHg BP Sitting (Post-Dialysis) 151/96 mmHg Concurrent Access: falseAV Fistula Upper Arm (Left) Arterial BP Standing (Pre-Dialysis) 184/98 mmHg BP Standing (P ost-Dialysis) 136/92 mmHg Sitting Heart Rate Pre-Dialysis 92 BPM Sitting Heart Rate Post-Dialysis 94 BPM Standing Heart Rate Pre-Dialysis 95 BPM Standing Heart Rate Post-Dialysis 112 BPM Temperature Pre-Dialysis 97.6 degF Temperature Post -Dialysis 97.6 degF January 20, 2023 In-Center Hemodialysis Treatment [id number]:53:00.000Z 7419-90-76J77:20:00.000Z BP Sitting (Pre-Dialysis) 148/60 mmHg BP Sitting (Post-Dialysis) 130/86 mmHg Concurrent Access: falseAV Fistula Upper Arm (Left) Arterial BP Standing (Pre-Dialysis) 146/80 mmHg Sitting Heart Rate Post-Dialysis 95 BPM Sitting Heart Rate Pre-Dialysis 86 BPM Standing Heart Rate Pre-Dialysis 93 BPM Temperature Pre-Dialysis 97.7 degF January 18, 2023 In-Center Hemodialysis Treatment 4748-54-17D57:33:00.000Z 1982-94-12S58:33:16.000Z BP Sitting (Pre-Dialysis) 158/95 mmHg BP Sitting (Post-Dialysis) 141/89 mmHg Concurrent Access: falseAV Fistula Upper Arm (Left) Arterial BP Standing (Pre-Dialysis) 164/99 mmHg BP Standing (P ost-Dialysis) 136/83 mmHg Sitting Heart Rate Pre-Dialysis 89 BPM Sitting Heart Rate Post-Dialysis 89 BPM Standing Heart Rate Pre-Dialysis 86 BPM Standing Heart Rate Post-Dialysis 94 BPM Temperature Pre-Dialysis 97.9 degF Temperature Post -Dialysis 97.2 degF January 16, 2023 In-Center Hemodialysis Treatment 5411-29-04P76:25:35.000Z 3803-08-53M96:32:40.000Z BP Sitting (Pre-Dialysis) 172/100 mmHg BP Sitting (Post-Dialysis) 119/74 mmHg Concurrent Access: falseAV Fistula Upper Arm (Left) Arterial BP Standing (Pre-Dialysis) 170/104 mmHg BP Standing (P ost-Dialysis) 128/70 mmHg Sitting Heart Rate Pre-Dialysis 99 BPM Sitting Heart Rate Post-Dialysis 100 BPM Standing Heart Rate Pre-Dialysis 98 BPM Standing Heart Rate Post-Dialysis 99 BPM Temperature Pre-Dialysis 97.2 degF Temperature Post -Dialysis 97.2 degF January 13, 2023 In-Center Hemodialysis Treatment 7110-05-00C99:34:00.000Z 8944-98-75N94:16:18.000Z BP Sitting (Pre-Dialysis) 129/75 mmHg BP Sitting (Post-Dialysis) 131/84 mmHg Concurrent Access: falseAV Fistula Upper Arm (Left) Arterial BP Standing (Pre-Dialysis) 131/79 mmHg Sitti ng Heart Rate Post-Dialysis 91 BPM Sitting Heart Rate Pre-Dialysis 90 BPM Temperatu re Post-Dialysis 97.6 degF Standing Heart Rate Pre-Dialysis 92 BPM Temperature Pre-Dialysis 97.2 degF January 11, 2023 In-Center Hemodialysis Treatment 2487-52-48J24:48:46.000Z 4020-93-27H90:31:11.000Z BP Sitting (Pre-Dialysis) 142/92 mmHg BP Sitting (Post-Dialysis) 134/84 mmHg Concurrent Access: falseAV Fistula Upper Arm (Left) Arterial BP Standing (Pre-Dialysis) 154/109 mmHg BP Standing (P ost-Dialysis) 136/88 mmHg Sitting Heart Rate Pre-Dialysis 88 BPM Sitting Heart Rate Post-Dialysis 97 BPM Standing Heart Rate Pre-Dialysis 93 BPM Standing Heart Rate Post-Dialysis 98 BPM Temperature Pre-Dialysis 97.9 degF Temperature Post -Dialysis 97.6 degF January 09, 2023 In-Center Hemodialysis Treatment 3049-60-94L34:40:00.000Z 0169-09-91O87:29:09.000Z BP Sitting (Pre-Dialysis) 134/94 mmHg BP Sitting (Post-Dialysis) 170/107 mmHg Concurrent Access: falseAV Fistula Upper Arm (Left) Arterial BP Standing (Pre-Dialysis) 167/91 mmHg BP Standing (P ost-Dialysis) 187/94 mmHg Sitting Heart Rate Pre-Dialysis 89 BPM Sitting Heart Rate Post-Dialysis 98 BPM Standing Heart Rate Pre-Dialysis 96 BPM Standing Heart Rate Post-Dialysis 118 BPM Temperature Pre-Dialysis 97.6 degF Temperature Post -Dialysis 97.6 degF January 06, 2023 In-Center Hemodialysis Treatment 5890-70-68G23:39:50.000Z 2364-31-76D39:25:16.000Z BP Sitting (Pre-Dialysis) 145/84 mmHg BP Sitting (Post-Dialysis) 121/68 mmHg Concurrent Access: falseAV Fistula Upper Arm (Left) Arterial BP Standing (Pre-Dialysis) 145/102 mmHg BP Standing (P ost-Dialysis) 113/76 mmHg Sitting Heart Rate Pre-Dialysis 87 BPM Sitting Heart Rate Post-Dialysis 102 BPM Standing Heart Rate Pre-Dialysis 97 BPM Standing Heart Rate Post-Dialysis 122 BPM Temperature Pre-Dialysis 96.1 degF Temperature Post -Dialysis 96.8 degF January 04, 2023 In-Center Hemodialysis Treatment 7054-00-50N64:46:00.000Z 1145-77-31P05:41:18.000Z BP Sitting (Pre-Dialysis) 164/96 mmHg BP Sitting (Post-Dialysis) 166/91 mmHg Concurrent Access: falseAV Fistula Upper Arm (Left) Arterial BP Standing (Pre-Dialysis) 143/94 mmHg BP Standing (P ost-Dialysis) 150/89 mmHg Sitting Heart Rate Pre-Dialysis 82 BPM Sitting Heart Rate Post-Dialysis 103 BPM Standing Heart Rate Pre-Dialysis 94 BPM Temperature Post-Dialysis 97.9 degF Temperature Pre-Dialysis 98.1 degF January 02, 2023 In-Center Hemodialysis Treatment [id number]:45:00.000Z 0962-49-94V69:30:00.000Z BP Sitting (Pre-Dialysis) 149/99 mmHg BP Sitting (Post-Dialysis) 131/74 mmHg Concurrent Access: falseAV Fistula Upper Arm (Left) Arterial BP Standing (Pre-Dialysis) 150/106 mmHg BP Standing (P ost-Dialysis) 125/79 mmHg Sitting Heart Rate Pre-Dialysis 89 BPM Sitting Heart Rate Post-Dialysis 107 BPM Standing Heart Rate Pre-Dialysis 98 BPM Standing Heart Rate Post-Dialysis 116 BPM Temperature Pre-Dialysis 98.1 degF Temperature Post -Dialysis 97.9 degF December 30, 2022 In-Center Hemodialysis Treatment 4380-79-69D08:39:18.000Z 3142-43-39U71:22:18.000Z BP Sitting (Pre-Dialysis) 156/95 mmHg BP Sitting (Post-Dialysis) 110/72 mmHg Concurrent Access: falseAV Fistula Upper Arm (Left) Arterial BP Standing (Pre-Dialysis) 159/92 mmHg Sitti ng Heart Rate Post-Dialysis 87 BPM Sitting Heart Rate Pre-Dialysis 82 BPM Temperatu re Post-Dialysis 97.2 degF Standing Heart Rate Pre-Dialysis 82 BPM Temperature Pre-Dialysis 97.2 degF December 28, 2022 In-Center Hemodialysis Treatment 9567-56-71W70:45:18.000Z 9375-43-51M22:31:18.000Z BP Sitting (Pre-Dialysis) 164/107 mmHg BP Sitting (Post-Dialysis) 147/94 mmHg Concurrent Access: falseAV Fistula Upper Arm (Left) Arterial BP Standing (Pre-Dialysis) 148/106 mmHg BP Standing (P ost-Dialysis) 150/96 mmHg Sitting Heart Rate Pre-Dialysis 99 BPM Sitting Heart Rate Post-Dialysis 92 BPM Standing Heart Rate Pre-Dialysis 99 BPM Standing Heart Rate Post-Dialysis 94 BPM Temperature Pre-Dialysis 97.7 degF Temperature Post -Dialysis 97.7 degF December 26, 2022 In-Center Hemodialysis Treatment [id number]:44:00.000Z 3413-10-87B91:37:13.000Z BP Sitting (Pre-Dialysis) 158/94 mmHg BP Sitting (Post-Dialysis) 141/80 mmHg Concurrent Access: falseAV Fistula Upper Arm (Left) Arterial BP Standing (Pre-Dialysis) 150/101 mmHg BP Standing (P ost-Dialysis) 139/107 mmHg Sitting Heart Rate Pre-Dialysis 88 BPM Sitting Heart Rate Post-Dialysis 107 BPM Standing Heart Rate Pre-Dialysis 93 BPM Standing Heart Rate Post-Dialysis 116 BPM Temperature Pre-Dialysis 97.6 degF Temperature Post -Dialysis 97.2 degF December 23, 2022 In-Center Hemodialysis Treatment 3550-03-08P13:08:07.000Z 7685-42-02O22:53:07.000Z BP Sitting (Pre-Dialysis) 141/89 mmHg BP Sitting (Post-Dialysis) 159/100 mmHg Concurrent Access: falseAV Fistula Upper Arm (Left) Arterial BP Standing (Pre-Dialysis) 151/111 mmHg Sitti ng Heart Rate Post-Dialysis 104 BPM Sitting Heart Rate Pre-Dialysis 85 BPM Temperatu re Post-Dialysis 97.8 degF Standing Heart Rate Pre-Dialysis 92 BPM Temperature Pre-Dialysis 97.6 degF December 21, 2022 In-Center Hemodialysis Treatment 6932-98-93F90:42:00.000Z 2936-37-39B41:45:07.000Z BP Sitting (Pre-Dialysis) 140/93 mmHg BP Sitting (Post-Dialysis) 120/80 mmHg Concurrent Access: falseAV Fistula Upper Arm (Left) Arterial BP Standing (Pre-Dialysis) 157/90 mmHg BP Standing (P ost-Dialysis) 126/90 mmHg Sitting Heart Rate Pre-Dialysis 90 BPM Sitting Heart Rate Post-Dialysis 99 BPM Standing Heart Rate Pre-Dialysis 83 BPM Standing Heart Rate Post-Dialysis 90 BPM Temperature Pre-Dialysis 97.4 degF Temperature Post -Dialysis 97.2 degF December 19, 2022 In-Center Hemodialysis Treatment 4064-87-42L88:58:07.000Z 6205-15-45M04:42:07.000Z BP Sitting (Pre-Dialysis) 147/96 mmHg BP Sitting (Post-Dialysis) 123/87 mmHg Concurrent Access: falseAV Fistula Upper Arm (Left) Arterial BP Standing (Pre-Dialysis) 140/94 mmHg Sitting Heart Rate Post-Dialysis 107 BPM Sitting Heart Rate Pre-Dialysis 85 BPM Standing Heart Rate Pre-Dialysis 87 BPM Temperature Pre-Dialysis 97.2 degF December 16, 2022 In-Center Hemodialysis Treatment 5422-30-30V56:30:00.000Z 8478-33-00L34:20:49.000Z BP Sitting (Pre-Dialysis) 155/84 mmHg BP Sitting (Post-Dialysis) 140/85 mmHg Concurrent Access: falseAV Fistula Upper Arm (Left) Arterial BP Standing (Pre-Dialysis) 123/90 mmHg BP Standing (P ost-Dialysis) 120/71 mmHg Sitting Heart Rate Pre-Dialysis 90 BPM Sitting Heart Rate Post-Dialysis 90 BPM Standing Heart Rate Pre-Dialysis 91 BPM Standing Heart Rate Post-Dialysis 107 BPM Temperature Pre-Dialysis 97.2 degF Temperature Post -Dialysis 98 degF December 14, 2022 In-Center Hemodialysis Treatment [id number]:50:00.000Z 2810-14-48I87:27:38.000Z BP Sitting (Pre-Dialysis) 122/67 mmHg BP Sitting (Post-Dialysis) 128/66 mmHg Concurrent Access: falseAV Fistula Upper Arm (Left) Arterial BP Standing (Pre-Dialysis) 134/85 mmHg BP Standing (P ost-Dialysis) 124/69 mmHg Sitting Heart Rate Pre-Dialysis 88 BPM Sitting Heart Rate Post-Dialysis 91 BPM Standing Heart Rate Pre-Dialysis 98 BPM Standing Heart Rate Post-Dialysis 113 BPM Temperature Pre-Dialysis 96.8 degF Temperature Post -Dialysis 98 degF December 12, 2022 In-Center Hemodialysis Treatment 1228-13-32I81:34:00.000Z 1386-46-91H99:31:56.000Z BP Sitting (Pre-Dialysis) 150/80 mmHg BP Sitting (Post-Dialysis) 150/86 mmHg Concurrent Access: falseAV Fistula Upper Arm (Left) Arterial BP Standing (Pre-Dialysis) 153/88 mmHg Sitti ng Heart Rate Post-Dialysis 93 BPM Sitting Heart Rate Pre-Dialysis 97 BPM Temperatu re Post-Dialysis 97.9 degF Standing Heart Rate Pre-Dialysis 90 BPM Temperature Pre-Dialysis 97.2 degF December 09, 2022 In-Center Hemodialysis Treatment 0696-45-03E76:38:00.000Z 0218-29-71T21:32:08.000Z BP Sitting (Pre-Dialysis) 148/86 mmHg BP Sitting (Post-Dialysis) 131/69 mmHg Concurrent Access: falseAV Fistula Upper Arm (Left) Arterial BP Standing (Pre-Dialysis) 133/88 mmHg BP Standing (P ost-Dialysis) 119/77 mmHg Sitting Heart Rate Pre-Dialysis 88 BPM Sitting Heart Rate Post-Dialysis 101 BPM Standing Heart Rate Pre-Dialysis 98 BPM Standing Heart Rate Post-Dialysis 119 BPM Temperature Pre-Dialysis 97.6 degF Temperature Post -Dialysis 97.6 degF December 07, 2022 In-Center Hemodialysis Treatment 8681-33-61Y64:58:00.000Z 9118-52-24W96:46:08.000Z BP Sitting (Pre-Dialysis) 123/75 mmHg BP Sitting (Post-Dialysis) 113/63 mmHg Concurrent Access: falseAV Fistula Upper Arm (Left) Arterial BP Standing (Pre-Dialysis) 119/78 mmHg BP Standing (P ost-Dialysis) 120/68 mmHg Sitting Heart Rate Pre-Dialysis 92 BPM Sitting Heart Rate Post-Dialysis 96 BPM Standing Heart Rate Pre-Dialysis 90 BPM Standing Heart Rate Post-Dialysis 101 BPM Temperature Pre-Dialysis 97.4 degF Temperature Post -Dialysis 97.4 degF December 05, 2022 In-Center Hemodialysis Treatment 1687-26-98K14:28:00.000Z 9813-82-35V40:20:00.000Z BP Sitting (Pre-Dialysis) 145/95 mmHg BP Sitting (Post-Dialysis) 145/68 mmHg Concurrent Access: falseAV Fistula Upper Arm (Left) Arterial BP Standing (Pre-Dialysis) 147/90 mmHg Sitti ng Heart Rate Post-Dialysis 59 BPM Sitting Heart Rate Pre-Dialysis 75 BPM Temperatu re Post-Dialysis 97.2 degF Standing Heart Rate Pre-Dialysis 69 BPM Temperature Pre-Dialysis 97.2 degF December 02, 2022 In-Center Hemodialysis Treatment 2941-52-20F06:50:00.000Z 3102-62-02V43:29:06.000Z BP Sitting (Pre-Dialysis) 125/83 mmHg BP Sitting (Post-Dialysis) 145/83 mmHg Concurrent Access: falseAV Fistula Upper Arm (Left) Arterial BP Standing (Pre-Dialysis) 145/89 mmHg Sitting Heart Rate Post-Dialysis 100 BPM Sitting Heart Rate Pre-Dialysis 101 BPM Temperatu re Post-Dialysis 98 degF Standing Heart Rate Pre-Dialysis 94 BPM Temperature Pre-Dialysis 97.4 degF November 30, 2022 In-Center Hemodialysis Treatment [id number]:45:00.000Z 7127-12-75O50:30:30.000Z BP Sitting (Pre-Dialysis) 168/89 mmHg BP Sitting (Post-Dialysis) 146/85 mmHg Concurrent Access: falseAV Fistula Upper Arm (Left) Arterial BP Standing (Pre-Dialysis) 145/89 mmHg Sitti ng Heart Rate Post-Dialysis 101 BPM Sitting Heart Rate Pre-Dialysis 95 BPM Temperatu re Post-Dialysis 98.2 degF Standing Heart Rate Pre-Dialysis 100 BPM Temperature Pre-Dialysis 97.2 degF November 28, 2022 In-Center Hemodialysis Treatment [id number]:54:00.000Z 6360-13-46I74:39:54.000Z BP Sitting (Pre-Dialysis) 152/85 mmHg BP Sitting (Post-Dialysis) 137/83 mmHg Concurrent Access: falseAV Fistula Upper Arm (Left) Arterial BP Standing (Pre-Dialysis) 153/91 mmHg BP Standing (P ost-Dialysis) 132/81 mmHg Sitting Heart Rate Pre-Dialysis 94 BPM Sitting Heart Rate Post-Dialysis 94 BPM Standing Heart Rate Pre-Dialysis 92 BPM Standing Heart Rate Post-Dialysis 109 BPM Temperature Pre-Dialysis 98.8 degF Temperature Post -Dialysis 98 degF November 25, 2022 In-Center Hemodialysis Treatment 3087-18-29I55:37:00.000Z 8262-36-16J77:35:00.000Z BP Sitting (Pre-Dialysis) 133/81 mmHg BP Sitting (Post-Dialysis) 139/79 mmHg Concurrent Access: falseAV Fistula Upper Arm (Left) Arterial BP Standing (Pre-Dialysis) 137/81 mmHg BP Standing (P ost-Dialysis) 110/67 mmHg Sitting Heart Rate Pre-Dialysis 96 BPM Sitting Heart Rate Post-Dialysis 98 BPM Standing Heart Rate Pre-Dialysis 92 BPM Standing Heart Rate Post-Dialysis 117 BPM Temperature Pre-Dialysis 97.4 degF Temperature Post -Dialysis 97.8 degF November 23, 2022 In-Center Hemodialysis Treatment 9847-28-72L16:48:00.000Z 0515-82-94M61:35:45.000Z BP Sitting (Pre-Dialysis) 141/98 mmHg BP Sitting (Post-Dialysis) 162/59 mmHg Concurrent Access: falseAV Fistula Upper Arm (Left) Arterial BP Standing (Pre-Dialysis) 141/98 mmHg BP Standing (P ost-Dialysis) 165/55 mmHg Sitting Heart Rate Pre-Dialysis 95 BPM Sitting Heart Rate Post-Dialysis 69 BPM Standing Heart Rate Pre-Dialysis 95 BPM Standing Heart Rate Post-Dialysis 68 BPM Temperature Pre-Dialysis 98 degF Temperature Post -Dialysis 97.7 degF November 21, 2022 In-Center Hemodialysis Treatment 4689-31-32J72:33:00.000Z 4871-98-06P85:45:00.000Z BP Sitting (Pre-Dialysis) 163/80 mmHg BP Sitting (Post-Dialysis) 183/78 mmHg Concurrent Access: falseAV Fistula Upper Arm (Left) Arterial BP Standing (Pre-Dialysis) 153/96 mmHg BP Standing (P ost-Dialysis) 169/87 mmHg Sitting Heart Rate Pre-Dialysis 92 BPM Sitting Heart Rate Post-Dialysis 98 BPM Standing Heart Rate Pre-Dialysis 100 BPM Standing Heart Rate Post-Dialysis 98 BPM Temperature Pre-Dialysis 97.7 degF Temperature Post -Dialysis 97.2 degF November 18, 2022 In-Center Hemodialysis Treatment 0446-76-90M96:34:00.000Z 9107-31-91J83:21:55.000Z BP Sitting (Pre-Dialysis) 138/91 mmHg BP Sitting (Post-Dialysis) 150/84 mmHg Concurrent Access: falseAV Fistula Upper Arm (Left) Arterial BP Standing (Pre-Dialysis) 145/92 mmHg BP Standing (P ost-Dialysis) 153/88 mmHg Sitting Heart Rate Pre-Dialysis 88 BPM Sitting Heart Rate Post-Dialysis 100 BPM Standing Heart Rate Pre-Dialysis 99 BPM Standing Heart Rate Post-Dialysis 112 BPM Temperature Pre-Dialysis 97.9 degF Temperature Post -Dialysis 98.2 degF November 16, 2022 In-Center Hemodialysis Treatment 3387-69-25Q16:40:00.000Z 4843-21-57B93:28:00.000Z BP Sitting (Pre-Dialysis) 143/88 mmHg BP Sitting (Post-Dialysis) 131/82 mmHg Concurrent Access: falseAV Fistula Upper Arm (Left) Arterial BP Standing (Pre-Dialysis) 145/83 mmHg BP Standing (P ost-Dialysis) 136/90 mmHg Sitting Heart Rate Pre-Dialysis 98 BPM Sitting Heart Rate Post-Dialysis 109 BPM Standing Heart Rate Pre-Dialysis 97 BPM Standing Heart Rate Post-Dialysis 94 BPM Temperature Pre-Dialysis 97.9 degF Temperature Post -Dialysis 97.7 degF November 14, 2022 In-Center Hemodialysis Treatment 9501-45-31X63:39:00.000Z 3165-40-74N30:25:00.000Z BP Sitting (Pre-Dialysis) 160/84 mmHg BP Sitting (Post-Dialysis) 148/93 mmHg Concurrent Access: falseAV Fistula Upper Arm (Left) Arterial BP Standing (Pre-Dialysis) 134/73 mmHg BP Standing (P ost-Dialysis) 147/87 mmHg Sitting Heart Rate Pre-Dialysis 96 BPM Sitting Heart Rate Post-Dialysis 103 BPM Standing Heart Rate Pre-Dialysis 103 BPM Standing Heart Rate Post-Dialysis 120 BPM Temperature Pre-Dialysis 97.8 degF Temperature Post -Dialysis 97.4 degF November 11, 2022 In-Center Hemodialysis Treatment 2788-15-64C62:07:00.000Z 4157-82-71L51:56:16.000Z BP Sitting (Pre-Dialysis) 145/91 mmHg BP Sitting (Post-Dialysis) 133/88 mmHg Concurrent Access: falseAV Fistula Upper Arm (Left) Arterial BP Standing (Pre-Dialysis) 138/95 mmHg Sitti ng Heart Rate Post-Dialysis 98 BPM Sitting Heart Rate Pre-Dialysis 89 BPM Temperatu re Post-Dialysis 97.2 degF Standing Heart Rate Pre-Dialysis 97 BPM Temperature Pre-Dialysis 97.9 degF November 09, 2022 In-Center Hemodialysis Treatment 3415-55-65V04:29:00.000Z 9982-99-24U56:30:30.000Z BP Sitting (Pre-Dialysis) 152/93 mmHg BP Sitting (Post-Dialysis) 144/87 mmHg Concurrent Access: falseAV Fistula Upper Arm (Left) Arterial BP Standing (Pre-Dialysis) 154/96 mmHg BP Standing (P ost-Dialysis) 133/85 mmHg Sitting Heart Rate Pre-Dialysis 92 BPM Sitting Heart Rate Post-Dialysis 102 BPM Standing Heart Rate Pre-Dialysis 93 BPM Standing Heart Rate Post-Dialysis 102 BPM Temperature Pre-Dialysis 97.5 degF Temperature Post -Dialysis 97.5 degF November 07, 2022 In-Center Hemodialysis Treatment 0271-81-60Q21:38:00.000Z 2399-23-49U21:25:18.000Z BP Sitting (Pre-Dialysis) 180/106 mmHg BP Sitting (Post-Dialysis) 183/92 mmHg Concurrent Access: falseAV Fistula Upper Arm (Left) Arterial BP Standing (Pre-Dialysis) 164/104 mmHg Sitti ng Heart Rate Post-Dialysis 95 BPM Sitting Heart Rate Pre-Dialysis 91 BPM Temperatu re Post-Dialysis 97.7 degF Standing Heart Rate Pre-Dialysis 93 BPM Temperature Pre-Dialysis 97.5 degF November 04, 2022 In-Center Hemodialysis Treatment 5017-70-84Z43:34:00.000Z 9171-59-17N11:57:40.000Z BP Sitting (Pre-Dialysis) 163/92 mmHg BP Sitting (Post-Dialysis) 141/87 mmHg Concurrent Access: falseAV Fistula Upper Arm (Left) Arterial BP Standing (Pre-Dialysis) 156/98 mmHg BP Standing (P ost-Dialysis) 143/87 mmHg Sitting Heart Rate Pre-Dialysis 100 BPM Sitting Heart Rate Post-Dialysis 98 BPM Standing Heart Rate Pre-Dialysis 111 BPM Standing Heart Rate Post-Dialysis 108 BPM Temperature Pre-Dialysis 98.6 degF Temperature Post -Dialysis 97.8 degF November 02, 2022 In-Center Hemodialysis Treatment 5483-17-32M43:40:00.000Z 0272-75-76K05:26:29.000Z BP Sitting (Pre-Dialysis) 173/100 mmHg BP Sitting (Post-Dialysis) 145/91 mmHg Concurrent Access: falseAV Fistula Upper Arm (Left) Arterial BP Standing (Pre-Dialysis) 172/105 mmHg BP Standing (P ost-Dialysis) 145/84 mmHg Sitting Heart Rate Pre-Dialysis 90 BPM Sitting Heart Rate Post-Dialysis 109 BPM Standing Heart Rate Pre-Dialysis 94 BPM Standing Heart Rate Post-Dialysis 122 BPM Temperature Pre-Dialysis 97.2 degF Temperature Post -Dialysis 97.6 degF October 31, 2022 In-Center Hemodialysis Treatment 8949-38-18A11:54:00.000Z 4269-23-18L63:42:59.000Z BP Sitting (Pre-Dialysis) 185/108 mmHg BP Sitting (Post-Dialysis) 158/90 mmHg Concurrent Access: falseAV Fistula Upper Arm (Left) Arterial BP Standing (Pre-Dialysis) 164/93 mmHg Sitti ng Heart Rate Post-Dialysis 94 BPM Sitting Heart Rate Pre-Dialysis 89 BPM Temperatu re Post-Dialysis 97.6 degF Standing Heart Rate Pre-Dialysis 90 BPM Temperature Pre-Dialysis 98.1 degF October 28, 2022 In-Center Hemodialysis Treatment 8192-49-09M36:48:00.000Z 2216-15-24T08:33:35.000Z BP Sitting (Pre-Dialysis) 153/86 mmHg BP Sitting (Post-Dialysis) 162/106 mmHg Concurrent Access: falseAV Fistula Upper Arm (Left) Arterial BP Standing (Pre-Dialysis) 145/104 mmHg BP Standing (P ost-Dialysis) 136/75 mmHg Sitting Heart Rate Pre-Dialysis 92 BPM Sitting Heart Rate Post-Dialysis 90 BPM Standing Heart Rate Pre-Dialysis 96 BPM Standing Heart Rate Post-Dialysis 100 BPM Temperature Pre-Dialysis 97.5 degF Temperature Post -Dialysis 97.5 degF October 26, 2022 In-Center Hemodialysis Treatment 7014-25-59P28:55:00.000Z 5784-72-15U82:45:19.000Z BP Sitting (Pre-Dialysis) 133/60 mmHg BP Sitting (Post-Dialysis) 150/85 mmHg Concurrent Access: falseAV Fistula Upper Arm (Left) Arterial BP Standing (Pre-Dialysis) 116/82 mmHg BP Standing (P ost-Dialysis) 147/86 mmHg Sitting Heart Rate Pre-Dialysis 94 BPM Sitting Heart Rate Post-Dialysis 93 BPM Standing Heart Rate Pre-Dialysis 102 BPM Standing Heart Rate Post-Dialysis 109 BPM Temperature Pre-Dialysis 97.7 degF Temperature Post -Dialysis 97.5 degF October 24, 2022 In-Center Hemodialysis Treatment 8100-94-71P03:29:00.000Z 5734-58-02C99:38:35.000Z BP Sitting (Pre-Dialysis) 181/108 mmHg BP Sitting (Post-Dialysis) 161/92 mmHg Concurrent Access: falseAV Fistula Upper Arm (Left) Arterial BP Standing (Pre-Dialysis) 165/110 mmHg BP Standing (P ost-Dialysis) 161/92 mmHg Sitting Heart Rate Pre-Dialysis 93 BPM Sitting Heart Rate Post-Dialysis 104 BPM Standing Heart Rate Pre-Dialysis 99 BPM Standing Heart Rate Post-Dialysis 69 BPM Temperature Pre-Dialysis 97.5 degF Temperature Post -Dialysis 97.2 degF October 21, 2022 In-Center Hemodialysis Treatment 8646-90-59R19:47:00.000Z 0856-45-27Q98:22:10.000Z BP Sitting (Pre-Dialysis) 145/74 mmHg BP Sitting (Post-Dialysis) 151/82 mmHg Concurrent Access: falseAV Fistula Upper Arm (Left) Arterial BP Standing (Pre-Dialysis) 136/83 mmHg BP Standing (P ost-Dialysis) 138/83 mmHg Sitting Heart Rate Pre-Dialysis 85 BPM Sitting Heart Rate Post-Dialysis 93 BPM Standing Heart Rate Pre-Dialysis 93 BPM Standing Heart Rate Post-Dialysis 109 BPM Temperature Pre-Dialysis 97.7 degF Temperature Post -Dialysis 97.2 degF October 19, 2022 In-Center Hemodialysis Treatment [id number]:47:00.000Z 4483-60-37W10:34:05.000Z BP Sitting (Pre-Dialysis) 153/88 mmHg BP Sitting (Post-Dialysis) 173/81 mmHg Concurrent Access: falseAV Fistula Upper Arm (Left) ArterialCentral Venous Catheter (CVC) Chest (Right) Venous BP Standing (Pre-Dialysis) 153/81 mmHg Sitti ng Heart Rate Post-Dialysis 85 BPM Sitting Heart Rate Pre-Dialysis 93 BPM Temperatu re Post-Dialysis 97.2 degF Standing Heart Rate Pre-Dialysis 93 BPM Temperature Pre-Dialysis 97.5 degF October 17, 2022 In-Center Hemodialysis Treatment [id number]:41:00.000Z [id number]:30:00.000Z BP Sitting (Pre-Dialysis) 152/86 mmHg BP Sitting (Post-Dialysis) 150/83 mmHg Concurrent Access: falseAV Fistula Upper Arm (Left) ArterialCentral Venous Catheter (CVC) Chest (Right) Venous BP Standing (Pre-Dialysis) 148/69 mmHg BP Standing (P ost-Dialysis) 136/83 mmHg Sitting Heart Rate Pre-Dialysis 86 BPM Sitting Heart Rate Post-Dialysis 31 BPM Standing Heart Rate Pre-Dialysis 92 BPM Standing Heart Rate Post-Dialysis 100 BPM Temperature Pre-Dialysis 98 degF Temperature Post -Dialysis 97.6 degF October 14, 2022 In-Center Hemodialysis Treatment [id number]:47:00.000Z [id number]:41:00.000Z BP Sitting (Pre-Dialysis) 151/83 mmHg BP Sitting (Post-Dialysis) 153/84 mmHg Concurrent Access: trueAV Fistula Upper Arm (Left) ArterialCentral Venous Catheter (CVC) Chest (Right) Venous BP Standing (Pre-Dialysis) 140/90 mmHg BP Standing (P ost-Dialysis) 141/93 mmHg Sitting Heart Rate Pre-Dialysis 107 BPM Sitting Heart Rate Post-Dialysis 98 BPM Standing Heart Rate Pre-Dialysis 111 BPM Standing Heart Rate Post-Dialysis 114 BPM Temperature Pre-Dialysis 97.5 degF Temperature Post -Dialysis 97.6 degF October 12, 2022 In-Center Hemodialysis Treatment [id number]:40:00.000Z 7835-80-26Z14:25:24.000Z BP Sitting (Pre-Dialysis) 106/77 mmHg BP Sitting (Post-Dialysis) 158/94 mmHg Concurrent Access: trueAV Fistula Upper Arm (Left) ArterialCentral Venous Catheter (CVC) Chest (Right) Venous BP Standing (Pre-Dialysis) 142/99 mmHg BP Standing (P ost-Dialysis) 165/90 mmHg Sitting Heart Rate Pre-Dialysis 100 BPM Sitting Heart Rate Post-Dialysis 94 BPM Standing Heart Rate Pre-Dialysis 102 BPM Standing Heart Rate Post-Dialysis 92 BPM Temperature Pre-Dialysis 97.2 degF Temperature Post -Dialysis 97.2 degF October 10, 2022 In-Center Hemodialysis Treatment [id number]:55:00.000Z 6113-06-80Y80:43:18.000Z BP Sitting (Pre-Dialysis) 175/107 mmHg BP Sitting (Post-Dialysis) 160/97 mmHg Concurrent Access: trueAV Fistula Upper Arm (Left) ArterialCentral Venous Catheter (CVC) Chest (Right) Venous BP Standing (Pre-Dialysis) 156/109 mmHg BP Standing (P ost-Dialysis) 145/97 mmHg Sitting Heart Rate Pre-Dialysis 96 BPM Sitting Heart Rate Post-Dialysis 102 BPM Standing Heart Rate Pre-Dialysis 98 BPM Standing Heart Rate Post-Dialysis 123 BPM Temperature Pre-Dialysis 97.5 degF Temperature Post -Dialysis 97.6 degF October 07, 2022 In-Center Hemodialysis Treatment [id number]:07:00.000Z [id number]:20:51.000Z BP Sitting (Pre-Dialysis) 163/91 mmHg BP Sitting (Post-Dialysis) 151/81 mmHg Concurrent Access: trueAV Fistula Upper Arm (Left) ArterialCentral Venous Catheter (CVC) Chest (Right) Venous BP Standing (Pre-Dialysis) 155/91 mmHg BP Standing (P ost-Dialysis) 110/72 mmHg Sitting Heart Rate Pre-Dialysis 99 BPM Sitting Heart Rate Post-Dialysis 99 BPM Standing Heart Rate Pre-Dialysis 107 BPM Standing Heart Rate Post-Dialysis 121 BPM Temperature Pre-Dialysis 97.7 degF Temperature Post -Dialysis 97.8 degF October 05, 2022 In-Center Hemodialysis Treatment [id number]:54:00.000Z 8918-05-58V77:52:00.000Z BP Sitting (Pre-Dialysis) 155/96 mmHg BP Sitting (Post-Dialysis) 133/72 mmHg Concurrent Access: trueAV Fistula Upper Arm (Left) ArterialCentral Venous Catheter (CVC) Chest (Right) Venous Sitting Heart Rate Pre-Dialysis 102 BPM Sitting H eart Rate Post-Dialysis 100 BPM Temperature Pre-Dialysis 98.1 degF Temperature Post -Dialysis 97.6 degF October 03, 2022 In-Center Hemodialysis Treatment [id number]:38:00.000Z 1330-60-32F63:04:06.000Z BP Sitting (Pre-Dialysis) 138/104 mmHg BP Sitting (Post-Dialysis) 135/70 mmHg Concurrent Access: trueAV Fistula Upper Arm (Left) ArterialCentral Venous Catheter (CVC) Chest (Right) Venous BP Standing (Pre-Dialysis) 162/94 mmHg Sitti ng Heart Rate Post-Dialysis 115 BPM Sitting Heart Rate Pre-Dialysis 103 BPM Temperatu re Post-Dialysis 97.4 degF Standing Heart Rate Pre-Dialysis 100 BPM Temperature Pre-Dialysis 97.9 degF September 30, 2022 In-Center Hemodialysis Treatment [id number]:39:27.000Z 2845-02-14K84:26:26.000Z BP Sitting (Pre-Dialysis) 161/92 mmHg BP Sitting (Post-Dialysis) 116/73 mmHg Concurrent Access: trueAV Fistula Upper Arm (Left) ArterialCentral Venous Catheter (CVC) Chest (Right) Venous BP Standing (Pre-Dialysis) 139/89 mmHg BP Standing (P ost-Dialysis) 121/81 mmHg Sitting Heart Rate Pre-Dialysis 99 BPM Sitting Heart Rate Post-Dialysis 105 BPM Standing Heart Rate Pre-Dialysis 113 BPM Standing Heart Rate Post-Dialysis 105 BPM Temperature Pre-Dialysis 98.2 degF September 28, 2022 In-Center Hemodialysis Treatment [id number]:20:26.000Z 1202-23-42T60:09:26.000Z BP Sitting (Pre-Dialysis) 151/75 mmHg BP Sitting (Post-Dialysis) 29/88 mmHg Concurrent Access: trueAV Fistula Upper Arm (Left) ArterialCentral Venous Catheter (CVC) Chest (Right) Venous Sitting Heart Rate Pre-Dialysis 92 BPM Sitting H eart Rate Post-Dialysis 104 BPM Temperature Pre-Dialysis 97.2 degF Temperature Post -Dialysis 97.4 degF September 26, 2022 In-Center Hemodialysis Treatment [id number]:13:00.000Z 9901-63-14P11:01:26.000Z BP Sitting (Pre-Dialysis) 152/113 mmHg BP Sitting (Post-Dialysis) 136/99 mmHg Concurrent Access: trueAV Fistula Upper Arm (Left) ArterialCentral Venous Catheter (CVC) Chest (Right) Venous Sitting Heart Rate Pre-Dialysis 150 BPM Sitting H eart Rate Post-Dialysis 68 BPM Temperature Pre-Dialysis 97.5 degF Temperature Post -Dialysis 97.2 degF September 23, 2022 In-Center Hemodialysis Treatment [id number]:58:19.000Z 1542-25-37T51:48:20.000Z BP Sitting (Pre-Dialysis) 125/85 mmHg BP Sitting (Post-Dialysis) 155/87 mmHg Concurrent Access: trueAV Fistula Upper Arm (Left) ArterialCentral Venous Catheter (CVC) Chest (Right) Venous BP Standing (Pre-Dialysis) 132/84 mmHg Sitti ng Heart Rate Post-Dialysis 98 BPM Sitting Heart Rate Pre-Dialysis 120 BPM Temperatu re Post-Dialysis 97.5 degF Standing Heart Rate Pre-Dialysis 122 BPM Temperature Pre-Dialysis 97.5 degF September 21, 2022 In-Center Hemodialysis Treatment [id number]:12:41.000Z 1403-75-37Q15:02:42.000Z BP Sitting (Pre-Dialysis) 162/88 mmHg BP Sitting (Post-Dialysis) 150/80 mmHg Concurrent Access: trueAV Fistula Upper Arm (Left) ArterialCentral Venous Catheter (CVC) Chest (Right) Venous BP Standing (Pre-Dialysis) 155/91 mmHg BP Standing (P ost-Dialysis) 142/79 mmHg Sitting Heart Rate Pre-Dialysis 93 BPM Sitting Heart Rate Post-Dialysis 105 BPM Standing Heart Rate Pre-Dialysis 111 BPM Standing Heart Rate Post-Dialysis 100 BPM Temperature Pre-Dialysis 97.8 degF Temperature Post -Dialysis 97.3 degF September 19, 2022 In-Center Hemodialysis Treatment 3488-18-52R69:00:00.000Z 2453-43-23R05:38:20.000Z BP Sitting (Pre-Dialysis) 175/110 mmHg BP Sitting (Post-Dialysis) 148/112 mmHg Concurrent Access: falseCentral Venous Catheter (CVC) Chest (Right) ArterialAV Fistula Upper Arm (Left) Venous BP Standing (Pre-Dialysis) 170/113 mmHg BP Standing (P ost-Dialysis) 154/105 mmHg Sitting Heart Rate Pre-Dialysis 89 BPM Sitting Heart Rate Post-Dialysis 98 BPM Standing Heart Rate Pre-Dialysis 101 BPM Standing Heart Rate Post-Dialysis 110 BPM Temperature Pre-Dialysis 97.6 degF Temperature Post -Dialysis 97.9 degF September 16, 2022 In-Center Hemodialysis Treatment 3399-65-05Z09:59:26.000Z 2961-22-33Z79:59:25.000Z BP Sitting (Pre-Dialysis) 178/113 mmHg BP Sitting (Post-Dialysis) 159/104 mmHg Concurrent Access: falseCentral Venous Catheter (CVC) Chest (Right) ArterialAV Fistula Upper Arm (Left) Venous BP Standing (Pre-Dialysis) 178/120 mmHg BP Standing (P ost-Dialysis) 147/111 mmHg Sitting Heart Rate Pre-Dialysis 94 BPM Sitting Heart Rate Post-Dialysis 101 BPM Standing Heart Rate Pre-Dialysis 92 BPM Standing Heart Rate Post-Dialysis 120 BPM Temperature Pre-Dialysis 97.2 degF Temperature Post -Dialysis 97.9 degF September 14, 2022 In-Center Hemodialysis Treatment 7317-51-09H55:00:00.000Z 1012-79-00O48:50:25.000Z BP Sitting (Pre-Dialysis) 190/100 mmHg BP Sitting (Post-Dialysis) 210/105 mmHg Concurrent Access: falseCentral Venous Catheter (CVC) Chest (Right) ArterialAV Fistula Upper Arm (Left) Venous BP Standing (Pre-Dialysis) 182/114 mmHg BP Standing (P ost-Dialysis) 188/106 mmHg Sitting Heart Rate Pre-Dialysis 100 BPM Sitting Heart Rate Post-Dialysis 90 BPM Standing Heart Rate Pre-Dialysis 99 BPM Standing Heart Rate Post-Dialysis 107 BPM Temperature Pre-Dialysis 97.2 degF Temperature Post -Dialysis 97.7 degF September 12, 2022 In-Center Hemodialysis Treatment [id number]:40:25.000Z 9670-39-18T85:28:12.000Z BP Sitting (Pre-Dialysis) 149/100 mmHg BP Sitting (Post-Dialysis) 173/110 mmHg Concurrent Access: falseCentral Venous Catheter (CVC) Chest (Right) ArterialAV Fistula Upper Arm (Left) Venous BP Standing (Pre-Dialysis) 149/100 mmHg BP Standing (P ost-Dialysis) 171/123 mmHg Sitting Heart Rate Pre-Dialysis 95 BPM Sitting Heart Rate Post-Dialysis 89 BPM Standing Heart Rate Pre-Dialysis 100 BPM Standing Heart Rate Post-Dialysis 106 BPM Temperature Pre-Dialysis 97.5 degF Temperature Post -Dialysis 97.5 degF September 09, 2022 In-Center Hemodialysis Treatment [id number]:51:00.000Z 6008-20-89E92:50:20.000Z BP Sitting (Pre-Dialysis) 172/114 mmHg BP Sitting (Post-Dialysis) 148/90 mmHg Concurrent Access: falseCentral Venous Catheter (CVC) Chest (Right) ArterialAV Fistula Upper Arm (Left) Venous BP Standing (Pre-Dialysis) 148/106 mmHg BP Standing (P ost-Dialysis) 133/99 mmHg Sitting Heart Rate Pre-Dialysis 88 BPM Sitting Heart Rate Post-Dialysis 104 BPM Standing Heart Rate Pre-Dialysis 105 BPM Standing Heart Rate Post-Dialysis 101 BPM Temperature Pre-Dialysis 97.4 degF Temperature Post -Dialysis 97.2 degF September 07, 2022 In-Center Hemodialysis Treatment [id number]:05:20.000Z 3781-74-52M92:55:21.000Z BP Sitting (Pre-Dialysis) 156/106 mmHg BP Sitting (Post-Dialysis) 185/80 mmHg Concurrent Access: falseCentral Venous Catheter (CVC) Chest (Right) ArterialAV Fistula Upper Arm (Left) Venous BP Standing (Pre-Dialysis) 157/104 mmHg BP Standing (P ost-Dialysis) 154/90 mmHg Sitting Heart Rate Pre-Dialysis 80 BPM Sitting Heart Rate Post-Dialysis 90 BPM Standing Heart Rate Pre-Dialysis 98 BPM Standing Heart Rate Post-Dialysis 90 BPM Temperature Pre-Dialysis 97.2 degF Temperature Post -Dialysis 97.2 degF September 05, 2022 In-Center Hemodialysis Treatment [id number]:45:00.000Z 0285-85-12S27:38:37.000Z BP Sitting (Pre-Dialysis) 164/114 mmHg BP Sitting (Post-Dialysis) 151/94 mmHg Concurrent Access: falseCentral Venous Catheter (CVC) Chest (Right) ArterialAV Fistula Upper Arm (Left) Venous BP Standing (Pre-Dialysis) 157/109 mmHg BP Standing (P ost-Dialysis) 134/95 mmHg Sitting Heart Rate Pre-Dialysis 85 BPM Sitting Heart Rate Post-Dialysis 105 BPM Standing Heart Rate Pre-Dialysis 91 BPM Standing Heart Rate Post-Dialysis 116 BPM Temperature Pre-Dialysis 97.9 degF Temperature Post -Dialysis 97.9 degF September 01, 2022 In-Center Hemodialysis Treatment [id number]:25:00.000Z 4654-59-48X35:43:27.000Z BP Sitting (Pre-Dialysis) 150/107 mmHg BP Sitting (Post-Dialysis) 172/111 mmHg Concurrent Access: falseCentral Venous Catheter (CVC) Chest (Right) ArterialAV Fistula Upper Arm (Left) Venous BP Standing (Pre-Dialysis) 147/103 mmHg Sitti ng Heart Rate Post-Dialysis 56 BPM Sitting Heart Rate Pre-Dialysis 92 BPM Temperatu re Post-Dialysis 98 degF Standing Heart Rate Pre-Dialysis 104 BPM Temperature Pre-Dialysis 97.2 degF August 30, 2022 In-Center Hemodialysis Treatment 3945-82-75P07:04:00.000Z 3971-03-13K50:09:29.000Z BP Sitting (Pre-Dialysis) 171/107 mmHg BP Sitting (Post-Dialysis) 162/107 mmHg Concurrent Access: falseCentral Venous Catheter (CVC) Chest (Right) ArterialAV Fistula Upper Arm (Left) Venous BP Standing (Pre-Dialysis) 168/120 mmHg BP Standing (P ost-Dialysis) 148/109 mmHg Sitting Heart Rate Pre-Dialysis 91 BPM Sitting Heart Rate Post-Dialysis 88 BPM Standing Heart Rate Pre-Dialysis 99 BPM Standing Heart Rate Post-Dialysis 116 BPM Temperature Pre-Dialysis 97.2 degF Temperature Post -Dialysis 97.2 degF August 28, 2022 In-Center Hemodialysis Treatment 3024-06-94Q57:25:00.000Z 7222-85-91E09:47:32.000Z BP Sitting (Pre-Dialysis) 179/114 mmHg BP Sitting (Post-Dialysis) 170/106 mmHg Concurrent Access: falseCentral Venous Catheter (CVC) Chest (Right) ArterialAV Fistula Upper Arm (Left) Venous BP Standing (Pre-Dialysis) 168/108 mmHg BP Standing (P ost-Dialysis) 173/106 mmHg Sitting Heart Rate Pre-Dialysis 88 BPM Sitting Heart Rate Post-Dialysis 88 BPM Standing Heart Rate Pre-Dialysis 95 BPM Standing Heart Rate Post-Dialysis 91 BPM Temperature Pre-Dialysis 97.2 degF Temperature Post -Dialysis 97.2 degF August 25, 2022 In-Center Hemodialysis Treatment 6478-24-95V79:29:00.000Z 9976-16-19Y70:29:21.000Z BP Sitting (Pre-Dialysis) 115/70 mmHg BP Sitting (Post-Dialysis) 149/94 mmHg Concurrent Access: falseCentral Venous Catheter (CVC) Chest (Right) ArterialAV Fistula Upper Arm (Left) Venous BP Standing (Pre-Dialysis) 116/71 mmHg BP Standing (P ost-Dialysis) 159/93 mmHg Sitting Heart Rate Pre-Dialysis 99 BPM Sitting Heart Rate Post-Dialysis 81 BPM Standing Heart Rate Pre-Dialysis 100 BPM Standing Heart Rate Post-Dialysis 83 BPM Temperature Pre-Dialysis 97.2 degF Temperature Post -Dialysis 97.2 degF August 23, 2022 In-Center Hemodialysis Treatment [id number]:34:17.000Z 0723-34-90X04:33:52.000Z BP Sitting (Pre-Dialysis) 177/113 mmHg BP Sitting (Post-Dialysis) 149/85 mmHg Concurrent Access: falseCentral Venous Catheter (CVC) Chest (Right) ArterialAV Fistula Upper Arm (Left) Venous BP Standing (Pre-Dialysis) 182/118 mmHg BP Standing (P ost-Dialysis) 155/104 mmHg Sitting Heart Rate Pre-Dialysis 97 BPM Sitting Heart Rate Post-Dialysis 106 BPM Standing Heart Rate Pre-Dialysis 103 BPM Standing Heart Rate Post-Dialysis 121 BPM Temperature Pre-Dialysis 97.3 degF Temperature Post -Dialysis 97.2 degF August 21, 2022 In-Center Hemodialysis Treatment [id number]:55:00.000Z 6673-26-40Z93:00:50.000Z BP Sitting (Pre-Dialysis) 166/105 mmHg BP Sitting (Post-Dialysis) 146/103 mmHg Concurrent Access: falseCentral Venous Catheter (CVC) Chest (Right) ArterialAV Fistula Upper Arm (Left) Venous BP Standing (Pre-Dialysis) 166/111 mmHg BP Standing (P ost-Dialysis) 133/95 mmHg Sitting Heart Rate Pre-Dialysis 96 BPM Sitting Heart Rate Post-Dialysis 105 BPM Standing Heart Rate Pre-Dialysis 92 BPM Standing Heart Rate Post-Dialysis 116 BPM Temperature Pre-Dialysis 97.2 degF Temperature Post -Dialysis 97.2 degF August 18, 2022 In-Center Hemodialysis Treatment [id number]:40:00.000Z 1996-12-36N70:28:00.000Z BP Sitting (Pre-Dialysis) 163/91 mmHg BP Sitting (Post-Dialysis) 130/87 mmHg Concurrent Access: falseCentral Venous Catheter (CVC) Chest (Right) ArterialAV Fistula Upper Arm (Left) Venous BP Standing (Pre-Dialysis) 132/88 mmHg BP Standing (P ost-Dialysis) 132/72 mmHg Sitting Heart Rate Pre-Dialysis 102 BPM Sitting Heart Rate Post-Dialysis 87 BPM Standing Heart Rate Pre-Dialysis 110 BPM Standing Heart Rate Post-Dialysis 87 BPM Temperature Pre-Dialysis 97.7 degF Temperature Post -Dialysis 97.2 degF August 16, 2022 In-Center Hemodialysis Treatment 5873-93-34N53:32:00.000Z 1058-90-72O61:30:00.000Z BP Sitting (Pre-Dialysis) 165/96 mmHg BP Sitting (Post-Dialysis) 145/93 mmHg Concurrent Access: falseCentral Venous Catheter (CVC) Chest (Right) ArterialAV Fistula Upper Arm (Left) Venous BP Standing (Pre-Dialysis) 161/90 mmHg BP Standing (P ost-Dialysis) 138/96 mmHg Sitting Heart Rate Pre-Dialysis 104 BPM Sitting Heart Rate Post-Dialysis 94 BPM Standing Heart Rate Pre-Dialysis 107 BPM Standing Heart Rate Post-Dialysis 93 BPM Temperature Pre-Dialysis 98 degF Temperature Post -Dialysis 97.2 degF August 14, 2022 In-Center Hemodialysis Treatment [id number]:30:00.000Z 0496-44-93P35:32:00.000Z BP Sitting (Pre-Dialysis) 167/103 mmHg BP Sitting (Post-Dialysis) 150/101 mmHg Concurrent Access: falseCentral Venous Catheter (CVC) Chest (Right) ArterialAV Fistula Upper Arm (Left) Venous BP Standing (Pre-Dialysis) 134/69 mmHg BP Standing (P ost-Dialysis) 159/113 mmHg Sitting Heart Rate Pre-Dialysis 105 BPM Sitting Heart Rate Post-Dialysis 102 BPM Standing Heart Rate Pre-Dialysis 113 BPM Standing Heart Rate Post-Dialysis 102 BPM Temperature Pre-Dialysis 98.1 degF Temperature Post -Dialysis 98.1 degF August 11, 2022 In-Center Hemodialysis Treatment [id number]:05:06.000Z 0886-95-19F02:09:41.000Z BP Sitting (Pre-Dialysis) 138/92 mmHg BP Sitting (Post-Dialysis) 144/95 mmHg Concurrent Access: falseCentral Venous Catheter (CVC) Chest (Right) ArterialAV Fistula Upper Arm (Left) Venous BP Standing (Pre-Dialysis) 117/79 mmHg BP Standing (P ost-Dialysis) 139/102 mmHg Sitting Heart Rate Pre-Dialysis 106 BPM Sitting Heart Rate Post-Dialysis 103 BPM Standing Heart Rate Pre-Dialysis 116 BPM Standing Heart Rate Post-Dialysis 111 BPM Temperature Pre-Dialysis 97.2 degF Temperature Post -Dialysis 97.2 degF August 09, 2022 In-Center Hemodialysis Treatment [id number]:52:25.000Z 8752-31-14X74:01:10.000Z BP Sitting (Pre-Dialysis) 129/82 mmHg BP Sitting (Post-Dialysis) 151/89 mmHg Concurrent Access: falseCentral Venous Catheter (CVC) Chest (Right) Arterial BP Standing (Pre-Dialysis) 138/80 mmHg BP Standing (P ost-Dialysis) 121/89 mmHg Sitting Heart Rate Pre-Dialysis 90 BPM Sitting Heart Rate Post-Dialysis 87 BPM Standing Heart Rate Pre-Dialysis 92 BPM Standing Heart Rate Post-Dialysis 103 BPM Temperature Pre-Dialysis 98 degF Temperature Post -Dialysis 97.4 degF August 07, 2022 In-Center Hemodialysis Treatment [id number]:19:19.000Z 9867-11-22A00:26:24.000Z BP Sitting (Pre-Dialysis) 191/118 mmHg BP Sitting (Post-Dialysis) 177/104 mmHg Concurrent Access: falseCentral Venous Catheter (CVC) Chest (Right) Arterial BP Standing (Pre-Dialysis) 198/98 mmHg BP Standing (P ost-Dialysis) 180/100 mmHg Sitting Heart Rate Pre-Dialysis 95 BPM Sitting Heart Rate Post-Dialysis 108 BPM Standing Heart Rate Pre-Dialysis 95 BPM Standing Heart Rate Post-Dialysis 92 BPM Temperature Pre-Dialysis 98 degF Temperature Post -Dialysis 97.4 degF August 04, 2022 In-Center Hemodialysis Treatment [id number]:45:00.000Z 0315-51-77J63:20:45.000Z BP Sitting (Pre-Dialysis) 173/114 mmHg BP Sitting (Post-Dialysis) 181/107 mmHg Concurrent Access: falseCentral Venous Catheter (CVC) Chest (Right) Arterial Sitting Heart Rate Pre-Dialysis 103 BPM BP Standi ng (Post-Dialysis) 177/106 mmHg Temperature Pre-Dialysis 98 degF Sitting Heart Ra te Post-Dialysis 111 BPM Standing Heart Rate Post-Carla lysis 99 BPM Temperature Post-Dialysis 97 .2 degF August 02, 2022 In-Center Hemodialysis Treatment [id number]:16:00.000Z 0634-19-43M16:23:06.000Z BP Sitting (Pre-Dialysis) 199/103 mmHg BP Sitting (Post-Dialysis) 145/100 mmHg Concurrent Access: falseCentral Venous Catheter (CVC) Chest (Right) Arterial BP Standing (Pre-Dialysis) 184/106 mmHg BP Standing (P ost-Dialysis) 155/106 mmHg Sitting Heart Rate Pre-Dialysis 102 BPM Sitting Heart Rate Post-Dialysis 114 BPM Standing Heart Rate Pre-Dialysis 92 BPM Standing Heart Rate Post-Dialysis 126 BPM Temperature Pre-Dialysis 97.7 degF Temperature Post -Dialysis 97.2 degF July 31, 2022 In-Center Hemodialysis Treatment [id number]:20:00.000Z 7573-29-72F22:29:26.000Z BP Sitting (Pre-Dialysis) 153/101 mmHg BP Sitting (Post-Dialysis) 169/74 mmHg Concurrent Access: falseCentral Venous Catheter (CVC) Chest (Right) Arterial BP Standing (Pre-Dialysis) 124/85 mmHg BP Standing (P ost-Dialysis) 159/70 mmHg Sitting Heart Rate Pre-Dialysis 67 BPM Sitting Heart Rate Post-Dialysis 69 BPM Standing Heart Rate Pre-Dialysis 106 BPM Standing Heart Rate Post-Dialysis 65 BPM Temperature Pre-Dialysis 98 degF Temperature Post -Dialysis 97.2 degF July 28, 2022 In-Center Hemodialysis Treatment 9680-29-62N81:15:00.000Z [id number]:29:59.000Z BP Sitting (Pre-Dialysis) 150/95 mmHg BP Sitting (Post-Dialysis) 144/91 mmHg Concurrent Access: falseCentral Venous Catheter (CVC) Chest (Right) Arterial BP Standing (Pre-Dialysis) 125/91 mmHg Sitti ng Heart Rate Post-Dialysis 104 BPM Sitting Heart Rate Pre-Dialysis 105 BPM Temperatu re Post-Dialysis 97.9 degF Standing Heart Rate Pre-Dialysis 113 BPM Temperature Pre-Dialysis 97.3 degF July 26, 2022 In-Center Hemodialysis Treatment [id number]:23:37.000Z 1779-01-69G98:24:52.000Z BP Sitting (Pre-Dialysis) 170/108 mmHg BP Sitting (Post-Dialysis) 165/100 mmHg Concurrent Access: falseCentral Venous Catheter (CVC) Chest (Right) Arterial BP Standing (Pre-Dialysis) 143/111 mmHg BP Standing (P ost-Dialysis) 170/101 mmHg Sitting Heart Rate Pre-Dialysis 90 BPM Sitting Heart Rate Post-Dialysis 89 BPM Standing Heart Rate Pre-Dialysis 103 BPM Standing Heart Rate Post-Dialysis 90 BPM Temperature Pre-Dialysis 97.2 degF Temperature Post -Dialysis 97.2 degF July 24, 2022 In-Center Hemodialysis Treatment 1368-20-55K85:25:00.000Z 0458-46-04Q71:32:40.000Z BP Sitting (Pre-Dialysis) 159/98 mmHg BP Sitting (Post-Dialysis) 145/86 mmHg Concurrent Access: falseCentral Venous Catheter (CVC) Chest (Right) Arterial BP Standing (Pre-Dialysis) 144/100 mmHg BP Standing (P ost-Dialysis) 143/101 mmHg Sitting Heart Rate Pre-Dialysis 102 BPM Sitting Heart Rate Post-Dialysis 105 BPM Standing Heart Rate Pre-Dialysis 108 BPM Standing Heart Rate Post-Dialysis 117 BPM Temperature Pre-Dialysis 97.7 degF Temperature Post -Dialysis 98.1 degF July 21, 2022 In-Center Hemodialysis Treatment 9270-51-12I53:39:00.000Z 6532-32-70L19:46:33.000Z BP Sitting (Pre-Dialysis) 149/74 mmHg BP Sitting (Post-Dialysis) 169/100 mmHg Concurrent Access: falseCentral Venous Catheter (CVC) Chest (Right) Arterial BP Standing (Pre-Dialysis) 158/79 mmHg BP Standing (P ost-Dialysis) 159/99 mmHg Sitting Heart Rate Pre-Dialysis 104 BPM Sitting Heart Rate Post-Dialysis 78 BPM Standing Heart Rate Pre-Dialysis 116 BPM Standing Heart Rate Post-Dialysis 75 BPM Temperature Pre-Dialysis 97.2 degF Temperature Post -Dialysis 97.2 degF July 19, 2022 In-Center Hemodialysis Treatment [id number]:45:00.000Z 9244-27-23E40:03:12.000Z BP Sitting (Pre-Dialysis) 178/90 mmHg BP Sitting (Post-Dialysis) 145/85 mmHg Concurrent Access: falseCentral Venous Catheter (CVC) Chest (Right) Arterial BP Standing (Pre-Dialysis) 172/102 mmHg BP Standing (P ost-Dialysis) 162/87 mmHg Sitting Heart Rate Pre-Dialysis 96 BPM Sitting Heart Rate Post-Dialysis 100 BPM Standing Heart Rate Pre-Dialysis 108 BPM Standing Heart Rate Post-Dialysis 122 BPM Temperature Pre-Dialysis 98.1 degF Temperature Post -Dialysis 97.2 degF July 17, 2022 In-Center Hemodialysis Treatment [id number]:35:00.000Z 8230-28-40Z40:50:00.000Z BP Sitting (Pre-Dialysis) 152/85 mmHg BP Sitting (Post-Dialysis) 150/99 mmHg Concurrent Access: falseCentral Venous Catheter (CVC) Chest (Right) Arterial BP Standing (Pre-Dialysis) 146/80 mmHg BP Standing (P ost-Dialysis) 140/93 mmHg Sitting Heart Rate Pre-Dialysis 100 BPM Sitting Heart Rate Post-Dialysis 101 BPM Standing Heart Rate Pre-Dialysis 104 BPM Standing Heart Rate Post-Dialysis 110 BPM Temperature Pre-Dialysis 97.3 degF Temperature Post -Dialysis 97.2 degF July 14, 2022 In-Center Hemodialysis Treatment [id number]:26:00.000Z 0938-47-25Q66:32:30.000Z BP Sitting (Pre-Dialysis) 162/93 mmHg BP Sitting (Post-Dialysis) 137/76 mmHg Concurrent Access: falseCentral Venous Catheter (CVC) Chest (Right) Arterial BP Standing (Pre-Dialysis) 147/99 mmHg BP Standing (P ost-Dialysis) 142/100 mmHg Sitting Heart Rate Pre-Dialysis 76 BPM Sitting Heart Rate Post-Dialysis 71 BPM Standing Heart Rate Pre-Dialysis 89 BPM Standing Heart Rate Post-Dialysis 89 BPM Temperature Pre-Dialysis 97.7 degF Temperature Post -Dialysis 97.2 degF July 12, 2022 In-Center Hemodialysis Treatment [id number]:18:09.000Z [id number]:17:44.000Z BP Sitting (Pre-Dialysis) 168/95 mmHg BP Sitting (Post-Dialysis) 160/102 mmHg Concurrent Access: falseCentral Venous Catheter (CVC) Chest (Right) Arterial BP Standing (Pre-Dialysis) 179/102 mmHg BP Standing (P ost-Dialysis) 128/93 mmHg Sitting Heart Rate Pre-Dialysis 72 BPM Sitting Heart Rate Post-Dialysis 77 BPM Standing Heart Rate Pre-Dialysis 75 BPM Standing Heart Rate Post-Dialysis 79 BPM Temperature Pre-Dialysis 97.2 degF Temperature Post -Dialysis 97.2 degF July 10, 2022 In-Center Hemodialysis Treatment [id number]:05:00.000Z [id number]:05:20.000Z BP Sitting (Pre-Dialysis) 177/105 mmHg BP Sitting (Post-Dialysis) 139/83 mmHg Concurrent Access: falseCentral Venous Catheter (CVC) Chest (Right) Arterial BP Standing (Pre-Dialysis) 157/97 mmHg BP Standing (P ost-Dialysis) 129/87 mmHg Sitting Heart Rate Pre-Dialysis 83 BPM Sitting Heart Rate Post-Dialysis 90 BPM Standing Heart Rate Pre-Dialysis 91 BPM Standing Heart Rate Post-Dialysis 90 BPM Temperature Pre-Dialysis 97.7 degF Temperature Post -Dialysis 97.2 degF July 07, 2022 In-Center Hemodialysis Treatment [id number]:58:01.000Z [id number]:56:46.000Z BP Sitting (Pre-Dialysis) 153/98 mmHg BP Sitting (Post-Dialysis) 151/94 mmHg Concurrent Access: falseCentral Venous Catheter (CVC) Chest (Right) Arterial BP Standing (Pre-Dialysis) 137/91 mmHg BP Standing (P ost-Dialysis) 134/82 mmHg Sitting Heart Rate Pre-Dialysis 90 BPM Sitting Heart Rate Post-Dialysis 81 BPM Standing Heart Rate Pre-Dialysis 92 BPM Standing Heart Rate Post-Dialysis 91 BPM Temperature Pre-Dialysis 98.1 degF Temperature Post -Dialysis 97.4 degF July 05, 2022 In-Center Hemodialysis Treatment [id number]:57:42.000Z [id number]:57:17.000Z BP Sitting (Pre-Dialysis) 165/78 mmHg BP Sitting (Post-Dialysis) 144/82 mmHg Concurrent Access: falseCentral Venous Catheter (CVC) Chest (Right) Arterial BP Standing (Pre-Dialysis) 150/78 mmHg BP Standing (P ost-Dialysis) 125/75 mmHg Sitting Heart Rate Pre-Dialysis 80 BPM Sitting Heart Rate Post-Dialysis 74 BPM Standing Heart Rate Pre-Dialysis 79 BPM Standing Heart Rate Post-Dialysis 86 BPM Temperature Pre-Dialysis 97.2 degF Temperature Post -Dialysis 97.2 degF July 03, 2022 In-Center Hemodialysis Treatment [id number]:39:00.000Z [id number]:53:08.000Z BP Sitting (Pre-Dialysis) 178/99 mmHg BP Sitting (Post-Dialysis) 146/89 mmHg Concurrent Access: falseCentral Venous Catheter (CVC) Chest (Right) Arterial BP Standing (Pre-Dialysis) 187/102 mmHg BP Standing (P ost-Dialysis) 131/97 mmHg Sitting Heart Rate Pre-Dialysis 74 BPM Sitting Heart Rate Post-Dialysis 79 BPM Standing Heart Rate Pre-Dialysis 80 BPM Standing Heart Rate Post-Dialysis 81 BPM Temperature Pre-Dialysis 97.4 degF Temperature Post -Dialysis 97.2 degF June 30, 2022 In-Center Hemodialysis Treatment [id number]:09:00.000Z [id number]:09:58.000Z BP Sitting (Pre-Dialysis) 159/88 mmHg BP Sitting (Post-Dialysis) 147/97 mmHg Concurrent Access: falseCentral Venous Catheter (CVC) Chest (Right) Arterial BP Standing (Pre-Dialysis) 170/97 mmHg BP Standing (P ost-Dialysis) 139/95 mmHg Sitting Heart Rate Pre-Dialysis 79 BPM Sitting Heart Rate Post-Dialysis 76 BPM Standing Heart Rate Pre-Dialysis 67 BPM Standing Heart Rate Post-Dialysis 91 BPM Temperature Pre-Dialysis 96.8 degF Temperature Post -Dialysis 97.7 degF June 28, 2022 In-Center Hemodialysis Treatment [id number]:07:00.000Z [id number]:12:42.000Z BP Sitting (Pre-Dialysis) 168/101 mmHg BP Sitting (Post-Dialysis) 145/82 mmHg Concurrent Access: falseCentral Venous Catheter (CVC) Chest (Right) Arterial BP Standing (Pre-Dialysis) 165/90 mmHg Sitti ng Heart Rate Post-Dialysis 74 BPM Sitting Heart Rate Pre-Dialysis 85 BPM Temperatu re Post-Dialysis 97.2 degF Standing Heart Rate Pre-Dialysis 85 BPM Temperature Pre-Dialysis 98.8 degF June 26, 2022 In-Center Hemodialysis Treatment [id number]:48:30.000Z [id number]:53:05.000Z BP Sitting (Pre-Dialysis) 138/88 mmHg BP Sitting (Post-Dialysis) 149/96 mmHg Concurrent Access: falseCentral Venous Catheter (CVC) Chest (Right) Arterial BP Standing (Pre-Dialysis) 154/68 mmHg BP Standing (P ost-Dialysis) 134/100 mmHg Sitting Heart Rate Pre-Dialysis 79 BPM Sitting Heart Rate Post-Dialysis 71 BPM Standing Heart Rate Pre-Dialysis 80 BPM Standing Heart Rate Post-Dialysis 88 BPM Temperature Pre-Dialysis 97.2 degF Temperature Post -Dialysis 97.2 degF June 23, 2022 In-Center Hemodialysis Treatment [id number]:06:00.000Z [id number]:12:22.000Z BP Sitting (Pre-Dialysis) 152/88 mmHg BP Sitting (Post-Dialysis) 169/69 mmHg Concurrent Access: falseCentral Venous Catheter (CVC) Chest (Right) Arterial BP Standing (Pre-Dialysis) 163/95 mmHg Sitti ng Heart Rate Post-Dialysis 87 BPM Sitting Heart Rate Pre-Dialysis 77 BPM Temperatu re Post-Dialysis 97.2 degF Standing Heart Rate Pre-Dialysis 78 BPM Temperature Pre-Dialysis 97.7 degF June 21, 2022 In-Center Hemodialysis Treatment [id number]:09:00.000Z [id number]:12:37.000Z BP Sitting (Pre-Dialysis) 157/80 mmHg BP Sitting (Post-Dialysis) 155/84 mmHg Concurrent Access: falseCentral Venous Catheter (CVC) Chest (Right) Arterial BP Standing (Pre-Dialysis) 143/74 mmHg BP Standing (P ost-Dialysis) 140/80 mmHg Sitting Heart Rate Pre-Dialysis 81 BPM Sitting Heart Rate Post-Dialysis 76 BPM Standing Heart Rate Pre-Dialysis 86 BPM Standing Heart Rate Post-Dialysis 89 BPM Temperature Pre-Dialysis 97.6 degF Temperature Post -Dialysis 97.2 degF June 19, 2022 In-Center Hemodialysis Treatment [id number]:00:00.000Z [id number]:32:00.000Z BP Sitting (Pre-Dialysis) 150/89 mmHg BP Sitting (Post-Dialysis) 145/79 mmHg Concurrent Access: falseCentral Venous Catheter (CVC) Chest (Right) Arterial BP Standing (Pre-Dialysis) 156/90 mmHg BP Standing (P ost-Dialysis) 143/82 mmHg Sitting Heart Rate Pre-Dialysis 80 BPM Sitting Heart Rate Post-Dialysis 82 BPM Standing Heart Rate Pre-Dialysis 84 BPM Standing Heart Rate Post-Dialysis 90 BPM Temperature Pre-Dialysis 97.2 degF Temperature Post -Dialysis 97.2 degF June 16, 2022 In-Center Hemodialysis Treatment [id number]:02:00.000Z [id number]:13:23.000Z BP Sitting (Pre-Dialysis) 158/92 mmHg BP Sitting (Post-Dialysis) 149/88 mmHg Concurrent Access: falseCentral Venous Catheter (CVC) Chest (Right) Arterial BP Standing (Pre-Dialysis) 163/95 mmHg BP Standing (P ost-Dialysis) 138/92 mmHg Sitting Heart Rate Pre-Dialysis 91 BPM Sitting Heart Rate Post-Dialysis 95 BPM Standing Heart Rate Pre-Dialysis 105 BPM Standing Heart Rate Post-Dialysis 110 BPM Temperature Pre-Dialysis 98.4 degF June 14, 2022 In-Center Hemodialysis Treatment [id number]:43:40.000Z [id number]:47:25.000Z BP Sitting (Pre-Dialysis) 159/91 mmHg BP Sitting (Post-Dialysis) 150/98 mmHg Concurrent Access: falseCentral Venous Catheter (CVC) Chest (Right) Arterial BP Standing (Pre-Dialysis) 162/98 mmHg BP Standing (P ost-Dialysis) 153/95 mmHg Sitting Heart Rate Pre-Dialysis 80 BPM Sitting Heart Rate Post-Dialysis 85 BPM Standing Heart Rate Pre-Dialysis 80 BPM Standing Heart Rate Post-Dialysis 80 BPM Temperature Pre-Dialysis 97.7 degF Temperature Post -Dialysis 97.2 degF June 12, 2022 In-Center Hemodialysis Treatment [id number]:01:00.000Z [id number]:08:35.000Z BP Sitting (Pre-Dialysis) 184/122 mmHg BP Sitting (Post-Dialysis) 151/106 mmHg Concurrent Access: falseCentral Venous Catheter (CVC) Chest (Right) Arterial BP Standing (Pre-Dialysis) 193/126 mmHg BP Standing (P ost-Dialysis) 181/11 mmHg Sitting Heart Rate Pre-Dialysis 87 BPM Sitting Heart Rate Post-Dialysis 89 BPM Standing Heart Rate Pre-Dialysis 84 BPM Standing Heart Rate Post-Dialysis 111 BPM Temperature Pre-Dialysis 97.7 degF Temperature Post -Dialysis 97.2 degF June 09, 2022 In-Center Hemodialysis Treatment [id number]:45:00.000Z [id number]:56:23.000Z BP Sitting (Pre-Dialysis) 187/122 mmHg BP Sitting (Post-Dialysis) 168/119 mmHg Concurrent Access: falseCentral Venous Catheter (CVC) Chest (Right) Arterial BP Standing (Pre-Dialysis) 186/131 mmHg BP Standing (P ost-Dialysis) 193/140 mmHg Sitting Heart Rate Pre-Dialysis 87 BPM Sitting Heart Rate Post-Dialysis 88 BPM Standing Heart Rate Pre-Dialysis 91 BPM Standing Heart Rate Post-Dialysis 101 BPM Temperature Pre-Dialysis 97 degF Temperature Post -Dialysis 97.7 degF June 07, 2022 In-Center Hemodialysis Treatment [id number]:54:00.000Z [id number]:54:04.000Z BP Sitting (Pre-Dialysis) 176/111 mmHg BP Sitting (Post-Dialysis) 139/110 mmHg Concurrent Access: falseCentral Venous Catheter (CVC) Chest (Right) Arterial BP Standing (Pre-Dialysis) 177/113 mmHg BP Standing (P ost-Dialysis) 135/110 mmHg Sitting Heart Rate Pre-Dialysis 81 BPM Sitting Heart Rate Post-Dialysis 90 BPM Standing Heart Rate Pre-Dialysis 79 BPM Standing Heart Rate Post-Dialysis 92 BPM Temperature Pre-Dialysis 97.2 degF Temperature Post -Dialysis 97.2 degF June 05, 2022 In-Center Hemodialysis Treatment [id number]:15:00.000Z [id number]:21:14.000Z BP Sitting (Pre-Dialysis) 180/113 mmHg BP Sitting (Post-Dialysis) 166/108 mmHg Concurrent Access: falseCentral Venous Catheter (CVC) Chest (Right) Arterial BP Standing (Pre-Dialysis) 174/108 mmHg BP Standing (P ost-Dialysis) 164/127 mmHg Sitting Heart Rate Pre-Dialysis 82 BPM Sitting Heart Rate Post-Dialysis 87 BPM Standing Heart Rate Pre-Dialysis 79 BPM Standing Heart Rate Post-Dialysis 106 BPM Temperature Pre-Dialysis 98 degF Temperature Post -Dialysis 97.2 degF June 02, 2022 In-Center Hemodialysis Treatment [id number]:11:00.000Z [id number]:17:53.000Z BP Sitting (Pre-Dialysis) 164/113 mmHg BP Sitting (Post-Dialysis) 161/109 mmHg Concurrent Access: falseCentral Venous Catheter (CVC) Chest (Right) Arterial BP Standing (Pre-Dialysis) 170/116 mmHg BP Standing (P ost-Dialysis) 153/109 mmHg Sitting Heart Rate Pre-Dialysis 84 BPM Sitting Heart Rate Post-Dialysis 93 BPM Standing Heart Rate Pre-Dialysis 94 BPM Standing Heart Rate Post-Dialysis 105 BPM Temperature Pre-Dialysis 97.9 degF Temperature Post -Dialysis 97.1 degF May 31, 2022 In-Center Hemodialysis Treatment [id number]:00:00.000Z [id number]:03:22.000Z BP Sitting (Pre-Dialysis) 176/107 mmHg BP Sitting (Post-Dialysis) 165/108 mmHg Concurrent Access: falseCentral Venous Catheter (CVC) Chest (Right) Arterial BP Standing (Pre-Dialysis) 170/111 mmHg BP Standing (P ost-Dialysis) 146/118 mmHg Sitting Heart Rate Pre-Dialysis 84 BPM Sitting Heart Rate Post-Dialysis 90 BPM Standing Heart Rate Pre-Dialysis 88 BPM Standing Heart Rate Post-Dialysis 109 BPM Temperature Pre-Dialysis 98 degF Temperature Post -Dialysis 97.9 degF May 29, 2022 In-Center Hemodialysis Treatment [id number]:05:00.000Z [id number]:28:31.000Z BP Sitting (Pre-Dialysis) 160/95 mmHg BP Sitting (Post-Dialysis) 165/113 mmHg Concurrent Access: falseCentral Venous Catheter (CVC) Chest (Right) Arterial BP Standing (Pre-Dialysis) 165/90 mmHg BP Standing (P ost-Dialysis) 159/112 mmHg Sitting Heart Rate Pre-Dialysis 92 BPM Sitting Heart Rate Post-Dialysis 101 BPM Standing Heart Rate Pre-Dialysis 91 BPM Standing Heart Rate Post-Dialysis 118 BPM Temperature Pre-Dialysis 97.7 degF Temperature Post -Dialysis 97.2 degF DIALYSIS ORDER Dialysis Procedure Orders Type of Dialysis Procedure Order Order Date/Time Observations In-Center Hemodialysis Treatment November Target Weight 81.5 kg Dialysate Flow Rate 500 mL/min Blood Flow Rate 450 mL/min Treatment Time 210 min(total) Max UF Rate 13 mL/kg/hr Base Sodium Dialysate Base Sodium 138 mE q/L dialysate_temp 37 C BiCarb Dialysate BiCarbonate 37 meq/L Access Concurrent No Arterial Access AV Fistula (Upper Ar m (Left)) Venous Access AV Fistula (Upper Ar m (Left)) Arterial Needle Display NIPRO, TULIP, 15 G x 1, SHARP , TWIN Venous Needle NIPRO, TULIP, 15G x 1, SHARP , TWIN Dialyzer Nipro Elisio 15H 126 4 [email or web address] Dialysate Bath Potassium Potassium 2 mEq /L Dialysate Bath Calcium Calcium 2.5 mEq/L Results Adequacy Description Draw Date Result/Unit Status Ref Range Result Comments Creatinine [Mass/volume] in Serum or Plasma 2024-11-20 17:35:23 12.94 mg/dL F 0.7-1.3 URR% 2024-11-08 02:23:49 67 % F stdKT/V Total 2024-11-08 02:23:49 N/A F CURRENT KRU 2024-11-08 02:23:49 F Unable to calculate: Post BUN lab result is unknown LENGTH OF DIALYSIS 2024-11-08 02:23:49 213 min F Std Renal KT/V 2024-11-08 02:23:49 N/A F PRESCRIBED DAYS/WEEK 2024-11-08 02:23:49 3 Day/Wk F TBW (Daniel) 2024-11-08 02:23:49 43.88 Liters F Dialyzer CHASE 2024-11-08 02:23:49 1264 Calc F VM (KT/V MEAN VOL) 2024-11-08 02:23:49 46.1 F PATIENT AGE 2024-11-08 02:23:49 58 Years F WEIGHT - PRE DAY 1 2024-11-08 02:23:49 82.5 kg F HEIGHT IN INCHES 2024-11-08 02:23:49 73 Inches F DIALYZER FLOW-QD 2024-11-08 02:23:49 464 mL/min F Residual kt/v 2024-11-08 02:23:49 F Unable to calculate: Post BUN lab result is unknown stdKt/V (DIAL) 2024-11-08 02:23:49 N/A F AMPUTATE FACTOR 2024-11-08 02:23:49 0 F spKt/V 2024-11-08 02:23:49 1.26 F eKt/V 2024-11-08 02:23:49 1.08 F Total Kt/V 2024-11-08 02:23:49 1.26 F BSA SÁNCHEZ 2024-11-08 02:23:49 2.06 sq m F TOTAL HOURS/WEEK DIALYSIS 2024-11-08 02:23:49 10 hrs F VT (KT/V TX VOL) 2024-11-08 02:23:49 46.6 L F WEIGHT (KG) 2024-11-08 02:23:49 81.5 kg F nPCR 2024-11-08 02:23:49 1.11 G/KG/D F KT/V PRESCRIBED 2024-11-08 02:23:49 1.65 F BLOOD FLOW-QWB 2024-11-08 02:23:49 450 F WEIGHT - POST DAY 1 2024-11-08 02:23:49 81 kg F Urea nitrogen [Mass/volume] in Serum or Plasma --post dialysis 2024-11-08 02:21:28 21 mg/dL F 9.0-23.0 Urea nitrogen [Mass/volume] in Serum or Plasma 2024-11-07 03:09:15 64 mg/dL F 9.0-23.0 VT (KT/V TX VOL) 2024-10-26 07:40:01 F Unable to calculate: Post BUN lab result is unknown,Unable to calculate: Post BUN lab result is unknown KT/V PRESCRIBED 2024-10-26 07:40:01 F Unable to calculate: Post BUN lab result is unknown,Unable to calculate: Post BUN lab result is unknown TBW (Sanchez) 2024-10-26 07:40:01 F Unable to calculate: Post BUN lab result is unknown,Unable to calculate: Post BUN lab result is unknown PRESCRIBED DAYS/WEEK 2024-10-26 07:40:01 3 Day/Wk F spKt/V 2024-10-26 07:40:01 F Unable to calculate: Post BUN lab result is unknown,Unable to calculate: Post BUN lab result is unknown PATIENT AGE 2024-10-26 07:40:01 58 Years F AMPUTATE FACTOR 2024-10-26 07:40:01 0 F DIALYZER FLOW-QD 2024-10-26 07:40:01 538 mL/min F VM (KT/V MEAN VOL) 2024-10-26 07:40:01 F Unable to calculate: Post BUN lab result is unknown,Unable to calculate: Post BUN lab result is unknown LENGTH OF DIALYSIS 2024-10-26 07:40:01 213 min F URR% 2024-10-26 07:40:01 F Unable to calculate: Post BUN lab result is unknown,Unable to Calculate.,Unable to calculate: Post BUN lab result is unknown nPCR 2024-10-26 07:40:01 F Unable to calculate: Post BUN lab result is unknown,Unable to calculate: Post BUN lab result is unknown Residual kt/v 2024-10-26 07:40:01 F Unable to calculate: Post BUN lab result is unknown,Unable to calculate: Post BUN lab result is unknown WEIGHT - PRE DAY 1 2024-10-26 07:40:01 85 kg F eKt/V 2024-10-26 07:40:01 F Unable to calculate: Post BUN lab result is unknown,Unable to calculate: Post BUN lab result is unknown stdKt/V (DIAL) 2024-10-26 07:40:01 F Unable to calculate: Post BUN lab result is unknown,Unable to calculate: Post BUN lab result is unknown WEIGHT (KG) 2024-10-26 07:40:01 81.5 kg F Dialyzer CHASE 2024-10-26 07:40:01 1264 Calc F Std Renal KT/V 2024-10-26 07:40:01 F Unable to calculate: Post BUN lab result is unknown,Unable to calculate: Post BUN lab result is unknown Total Kt/V 2024-10-26 07:40:01 F Unable to calculate: Post BUN lab result is unknown,Unable to calculate: Post BUN lab result is unknown WEIGHT - POST DAY 1 2024-10-26 07:40:01 81.9 kg F HEIGHT IN INCHES 2024-10-26 07:40:01 73 Inches F BLOOD FLOW-QWB 2024-10-26 07:40:01 424 F BSA SÁNCHEZ 2024-10-26 07:40:01 F Unable to calculate: Post BUN lab result is unknown,Unable to calculate: Post BUN lab result is unknown TOTAL HOURS/WEEK DIALYSIS 2024-10-26 07:40:01 10 hrs F CURRENT KRU 2024-10-26 07:40:01 F Unable to calculate: Post BUN lab result is unknown,Unable to calculate: Post BUN lab result is unknown stdKT/V Total 2024-10-26 07:40:01 F Unable to calculate: Post BUN lab result is unknown,Unable to calculate: Post BUN lab result is unknown Urea nitrogen [Mass/volume] in Serum or Plasma --post dialysis 2024-10-26 07:23:29 F Canceled - Speci men not received 5 days past draw date,Canceled - Specimen not received 5 days past draw date HEIGHT IN INCHES 2024-10-25 15:43:36 73 Inches F PRESCRIBED DAYS/WEEK 2024-10-25 15:43:36 3 Day/Wk F CURRENT [facility] 2024-10-25 15:43:36 F Unable to calculate: Pre BUN lab result is unknown stdKt/V (DIAL) 2024-10-25 15:43:36 N/A F VT (KT/V TX VOL) 2024-10-25 15:43:36 43.2 L F WEIGHT - PRE DAY 1 2024-10-25 15:43:36 84.2 kg F TBW (Sanchez) 2024-10-25 15:43:36 43.82 Liters F Total Kt/V 2024-10-25 15:43:36 1.34 F WEIGHT - POST DAY 1 2024-10-25 15:43:36 80.8 kg F AMPUTATE FACTOR 2024-10-25 15:43:36 0 F BLOOD FLOW-QWB 2024-10-25 15:43:36 408 F nPCR 2024-10-25 15:43:36 1.17 G/KG/D F stdKT/V Total 2024-10-25 15:43:36 N/A F URR% 2024-10-25 15:43:36 67 % F KT/V PRESCRIBED 2024-10-25 15:43:36 1.64 F DIALYZER FLOW-QD 2024-10-25 15:43:36 500 mL/min F WEIGHT (KG) 2024-10-25 15:43:36 81.5 kg F LENGTH OF DIALYSIS 2024-10-25 15:43:36 211 min F BSA SÁNCHEZ 2024-10-25 15:43:36 2.06 sq m F Std Renal KT/V 2024-10-25 15:43:36 N/A F spKt/V 2024-10-25 15:43:36 1.34 F Dialyzer CHASE 2024-10-25 15:43:36 1264 Calc F Residual kt/v 2024-10-25 15:43:36 F Unable to calculate: Pre BUN lab result is unknown eKt/V 2024-10-25 15:43:36 1.14 F PATIENT AGE 2024-10-25 15:43:36 58 Years F VM (KT/V MEAN VOL) 2024-10-25 15:43:36 46 F TOTAL HOURS/WEEK DIALYSIS 2024-10-25 15:43:36 10 hrs F Urea nitrogen [Mass/volume] in Serum or Plasma 2024-10-25 15:41:11 57 mg/dL F 9.0-23.0 Urea nitrogen [Mass/volume] in Serum or Plasma --post dialysis 2024-10-25 14:58:18 19 mg/dL F 9.0-23.0 URR% 2024-10-22 20:28:56 F Unable to Calculate.,RECOLLEC T - OUTDATED SPECIMEN,RECOLLECT - OUTDATED SPECIMEN Urea nitrogen [Mass/volume] in Serum or Plasma 2024-10-22 20:28:53 F RECOLLECT - OUTDATED SPECIMEN,RECOLLECT - OUTDATED SPECIMEN Urea nitrogen [Mass/volume] in Serum or Plasma 2024-10-22 18:40:18 60 mg/dL F 9.0-23.0 WEIGHT (KG) 2024-10-22 17:42:25 81.5 kg F HEIGHT IN INCHES 2024-10-22 17:42:25 73 Inches F PATIENT AGE 2024-10-22 17:42:25 58 Years F AMPUTATE FACTOR 2024-10-22 17:42:25 0 F WEIGHT - POST DAY 1 2024-10-10 15:14:10 82.1 kg F HEIGHT IN INCHES 2024-10-10 15:14:10 73 Inches F Std Renal KT/V 2024-10-10 15:14:10 N/A F VT (KT/V TX VOL) 2024-10-10 15:14:10 50.7 L F spKt/V 2024-10-10 15:14:10 1.18 F eKt/V 2024-10-10 15:14:10 1.01 F BSA SÁNCHEZ 2024-10-10 15:14:10 2.06 sq m F nPCR 2024-10-10 15:14:10 0.94 G/KG/D F CURRENT KRU 2024-10-10 15:14:10 F Unable to calculate: Post BUN lab result is unknown DIALYZER FLOW-QD 2024-10-10 15:14:10 500 mL/min F Total Kt/V 2024-10-10 15:14:10 1.18 F WEIGHT (KG) 2024-10-10 15:14:10 81.5 kg F stdKt/V (DIAL) 2024-10-10 15:14:10 N/A F LENGTH OF DIALYSIS 2024-10-10 15:14:10 213 min F URR% 2024-10-10 15:14:10 65 % F TBW (Sanchez) 2024-10-10 15:14:10 44.25 Liters F BLOOD FLOW-QWB 2024-10-10 15:14:10 443 F KT/V PRESCRIBED 2024-10-10 15:14:10 1.65 F AMPUTATE FACTOR 2024-10-10 15:14:10 0 F Dialyzer CHASE 2024-10-10 15:14:10 1264 Calc F WEIGHT - PRE DAY 1 2024-10-10 15:14:10 82.9 kg F TOTAL HOURS/WEEK DIALYSIS 2024-10-10 15:14:10 10 hrs F VM (KT/V MEAN VOL) 2024-10-10 15:14:10 47 F PATIENT AGE 2024-10-10 15:14:10 58 Years F Residual kt/v 2024-10-10 15:14:10 F Unable to calculate: Post BUN lab result is unknown PRESCRIBED DAYS/WEEK 2024-10-10 15:14:10 3 Day/Wk F stdKT/V Total 2024-10-10 15:14:10 N/A F Urea nitrogen [Mass/volume] in Serum or Plasma --post dialysis 2024-10-10 15:12:24 19 mg/dL F 9.0-23.0 Creatinine [Mass/volume] in Serum or Plasma 2024-10-10 06:14:17 10.51 mg/dL F 0.7-1.3 Urea nitrogen [Mass/volume] in Serum or Plasma 2024-10-10 06:14:15 55 mg/dL F 9.0-23.0 WEIGHT - POST DAY 1 DIALYZER FLOW-QD TOTAL HOURS/WEEK DIALYSIS LENGTH OF DIALYSIS BLOOD FLOW-QWB WEIGHT - PRE DAY 1 PRESCRIBED DAYS/WEEK Dialyzer CHASE Residual kt/v VT (KT/V TX VOL) Total Kt/V BSA SÁNCHEZ spKt/V VM (KT/V MEAN VOL) TBW (Sanchez) CURRENT KRU nPCR stdKt/V (DIAL) Std Renal KT/V eKt/V KT/V PRESCRIBED stdKT/V Total Anemia Description Draw Date Result/Unit Status Ref Range Result Comments IRON SATURATION 2024-11-21 06:35:44 42 % F 21.0-49.0 TIBC 2024-11-21 06:35:44 177 ug/dL F 250.0-425.0 Iron [Mass/volume] in Serum or Plasma 2024-11-21 06:20:38 74 ug/dL F 65.0-175.0 Iron binding capacity.unsaturated [Mass/volume] in Serum or Plasma 2024-11-21 06:20:38 103 ug/dL F 75.0-360.0 Ferritin [Mass/volume] in Serum or Plasma 2024-11-20 20:11:22 817 ng/mL F 22.0-322.0 HCT CALC HGBX3 2024-11-20 19:19:10 31.5 % F 42.0-52.0 Reticulocytes/100 erythrocytes in Blood by Automated count 2024-11-20 19:18:10 0.55 % F 0.7-2.5 Erythrocyte distribution width [Ratio] by Automated count 2024-11-20 19:18:10 14.6 % F 11.0-15.0 Platelets [#/volume] in Blood by Automated count 2024-11-20 19:18:10 187 x 10^3 cells/uL F 140.0-450.0 Hemoglobin [Mass/volume] in Blood 2024-11-20 19:18:10 10.5 g/dL F 14.0-18.0 MCH [Entitic mass] by Automated count 2024-11-20 19:18:10 30.1 pg F 25.9-34.2 MCHC [Mass/volume] by Automated count 2024-11-20 19:18:10 32.2 g/dL F 29.6-35.3 Erythrocytes [#/volume] in Blood by Automated count 2024-11-20 19:18:10 3.5 x 10^6 cells/uL F 4.6-6.2 Hematocrit [Volume Fraction] of Blood by Automated count 2024-11-20 19:18:10 32.7 % F 41.0-53.0 MCV [Entitic volume] by Automated count 2024-11-20 19:18:10 93.3 fL F 80.0-100.0 HCT CALC HGBX3 2024-11-07 00:04:02 30.9 % F 42.0-52.0 Hemoglobin [Mass/volume] in Blood 2024-11-07 00:03:18 10.3 g/dL F 14.0-18.0 HCT CALC HGBX3 2024-10-25 16:05:04 31.8 % F 42.0-52.0 ABSOLUTE RETIC COUNT 2024-10-25 16:04:08 0.044 x 10^6 cells/uL F 0.035-0.127 Reticulocytes/100 erythrocytes in Blood by Automated count 2024-10-25 16:04:08 1.28 % F 0.7-2.5 Erythrocyte distribution width [Ratio] by Automated count 2024-10-25 16:04:08 15.5 % F 11.0-15.0 Hemoglobin [Mass/volume] in Blood 2024-10-25 16:04:08 10.6 g/dL F 14.0-18.0 Platelets [#/volume] in Blood by Automated count 2024-10-25 16:04:08 170 x 10^3 cells/uL F 140.0-450.0 MCH [Entitic mass] by Automated count 2024-10-25 16:04:08 30.4 pg F 25.9-34.2 MCHC [Mass/volume] by Automated count 2024-10-25 16:04:08 32.5 g/dL F 29.6-35.3 Erythrocytes [#/volume] in Blood by Automated count 2024-10-25 16:04:08 3.48 x 10^6 cells/uL F 4.6-6.2 Hematocrit [Volume Fraction] of Blood by Automated count 2024-10-25 16:04:08 32.5 % F 41.0-53.0 MCV [Entitic volume] by Automated count 2024-10-25 16:04:08 93.4 fL F 80.0-100.0 HCT CALC HGBX3 2024-10-23 18:13:07 31.5 % F 42.0-52.0 Hemoglobin [Mass/volume] in Blood 2024-10-23 18:12:09 10.5 g/dL F 14.0-18.0 HCT CALC HGBX3 2024-10-22 23:15:22 32.1 % F 42.0-52.0 Reticulocytes/100 erythrocytes in Blood by Automated count 2024-10-22 23:14:50 F RECOLLECT - OUTDATED SPECIMEN,RECOLLE CT - OUTDATED SPECIMEN Erythrocyte distribution width [Ratio] by Automated count 2024-10-22 23:14:11 15.1 % F 11.0-15.0 Hemoglobin [Mass/volume] in Blood 2024-10-22 23:14:11 10.7 g/dL F 14.0-18.0 Platelets [#/volume] in Blood by Automated count 2024-10-22 23:14:11 145 x 10^3 cells/uL F 140.0-450.0 MCH [Entitic mass] by Automated count 2024-10-22 23:14:11 32 pg F 25.9-34.2 MCHC [Mass/volume] by Automated count 2024-10-22 23:14:11 33.2 g/dL F 29.6-35.3 Erythrocytes [#/volume] in Blood by Automated count 2024-10-22 23:14:11 3.35 x 10^6 cells/uL F 4.6-6.2 Hematocrit [Volume Fraction] of Blood by Automated count 2024-10-22 23:14:11 32.2 % F 41.0-53.0 MCV [Entitic volume] by Automated count 2024-10-22 23:14:11 96.1 fL F 80.0-100.0 Ferritin [Mass/volume] in Serum or Plasma 2024-10-22 19:48:50 583 ng/mL F 22.0-322.0 IRON SATURATION 2024-10-10 07:36:15 38 % F 21.0-49.0 TIBC 2024-10-10 07:36:15 183 ug/dL F 250.0-425.0 Iron [Mass/volume] in Serum or Plasma 2024-10-10 06:20:48 70 ug/dL F 65.0-175.0 Iron binding capacity.unsaturated [Mass/volume] in Serum or Plasma 2024-10-10 06:20:46 113 ug/dL F 75.0-360.0 HCT CALC HGBX3 2024-10-09 21:36:52 F Unable to Calculate.,Recol lect - Clot Detected,Recolle ct - Clot Detected Reticulocytes/100 erythrocytes in Blood by Automated count 2024-10-09 21:10:47 F Recollect - Clot Detected,Recolle ct - Clot Detected Platelets [#/volume] in Blood by Automated count 2024-10-09 21:10:47 F Recollect - Clot Detected,Recolle ct - Clot Detected MCHC [Mass/volume] by Automated count 2024-10-09 21:10:47 F Recollect - Clot Detected,Recolle ct - Clot Detected Erythrocytes [#/volume] in Blood by Automated count 2024-10-09 21:10:46 F Recollect - Clot Detected,Recolle ct - Clot Detected Hemoglobin [Mass/volume] in Blood 2024-10-09 21:10:46 F Recollect - Clot Detected,Recolle ct - Clot Detected Hematocrit [Volume Fraction] of Blood by Automated count 2024-10-09 21:10:46 F Recollect - Clot Detected,Recolle ct - Clot Detected MCV [Entitic volume] by Automated count 2024-10-09 21:10:46 F Recollect - Clot Detected,Recolle ct - Clot Detected MCH [Entitic mass] by Automated count 2024-10-09 21:10:46 F Recollect - Clot Detected,Recolle ct - Clot Detected Erythrocyte distribution width [Ratio] by Automated count 2024-10-09 21:10:46 F Recollect - Clot Detected,Recolle ct - Clot Detected Ferritin [Mass/volume] in Serum or Plasma 2024-10-09 07:16:31 F CANCELED - TEST CANCELED,CANCELE D - TEST CANCELED FluidBP Description Draw Date Result/Unit Status Ref Range Result Comments Sodium [Moles/volume] in Serum or Plasma 2024-11-21 06:20:38 143 mEq/L F 136.0-145.0 Sodium [Moles/volume] in Serum or Plasma 2024-10-10 06:20:46 140 mEq/L F 132.0-146.0 General Description Draw Date Result/Unit Status Ref Range Result Comments Chloride [Moles/volume] in Serum or Plasma 2024-11-21 06:20:38 106 mEq/L F 98.0-107.0 Aspartate aminotransferase [Enzymatic activity/volume] in Serum or Plasma 2024-11-20 17:35:23 12 U/L F 0.0-33.0 Alanine aminotransferase [Enzymatic activity/volume] in Serum or Plasma 2024-11-20 17:35:23 10 U/L F 10.0-49.0 Chloride [Moles/volume] in Serum or Plasma 2024-10-25 18:25:24 107 mEq/L F 99.0-109.0 Aspartate aminotransferase [Enzymatic activity/volume] in Serum or Plasma 2024-10-25 15:41:11 12 U/L F 0.0-33.0 Chloride [Moles/volume] in Serum or Plasma 2024-10-23 04:28:25 F RECOLLECT - OUTDATED SPECIMEN,RECOLLEC T - OUTDATED SPECIMEN Aspartate aminotransferase [Enzymatic activity/volume] in Serum or Plasma 2024-10-22 20:28:53 F RECOLLECT - OUTDATED SPECIMEN,RECOLLEC T - OUTDATED SPECIMEN Chloride [Moles/volume] in Serum or Plasma 2024-10-10 06:20:46 105 mEq/L F 99.0-109.0 Aspartate aminotransferase [Enzymatic activity/volume] in Serum or Plasma 2024-10-10 06:14:15 17 U/L F 0.0-33.0 Alanine aminotransferase [Enzymatic activity/volume] in Serum or Plasma 2024-10-10 06:14:15 12 U/L F 10.0-49.0 InfectionVaccination Description Draw Date Result/Unit Status Ref Range Result Comments Eosinophils/100 leukocytes in Blood by Automated count 2024-11-20 19:18:10 5.5 % F Neutrophils/100 leukocytes in Blood by Automated count 2024-11-20 19:18:10 52.2 % F Basophils/100 leukocytes in Blood by Automated count 2024-11-20 19:18:10 0.9 % F Lymphocytes/100 leukocytes in Blood by Automated count 2024-11-20 19:18:10 33.5 % F Monocytes/100 leukocytes in Blood by Automated count 2024-11-20 19:18:10 7.9 % F Monocytes [#/volume] in Blood by Automated count 2024-11-20 19:18:10 228 Cells/uL F 0.0-1100.0 Basophils [#/volume] in Blood by Automated count 2024-11-20 19:18:10 26 Cells/uL F 0.0-400.0 Eosinophils [#/volume] in Blood by Automated count 2024-11-20 19:18:10 158 Cells/uL F 0.0-700.0 Neutrophils [#/volume] in Blood by Automated count 2024-11-20 19:18:10 1503 Cells/uL F 2000.0-8800. 0 Leukocytes [#/volume] in Blood by Automated count 2024-11-20 19:18:10 2.9 x 10^3 cells/uL F 4.0-11.0 Lymphocytes [#/volume] in Blood by Automated count 2024-11-20 19:18:10 965 Cells/uL F 620.0-3660.0 Basophils/100 leukocytes in Blood by Automated count 2024-10-25 16:04:08 0.2 % F Eosinophils/100 leukocytes in Blood by Automated count 2024-10-25 16:04:08 9.1 % F Neutrophils/100 leukocytes in Blood by Automated count 2024-10-25 16:04:08 49.4 % F Lymphocytes/100 leukocytes in Blood by Automated count 2024-10-25 16:04:08 35.6 % F Monocytes/100 leukocytes in Blood by Automated count 2024-10-25 16:04:08 5.7 % F Monocytes [#/volume] in Blood by Automated count 2024-10-25 16:04:08 205 Cells/uL F 0.0-1100.0 Basophils [#/volume] in Blood by Automated count 2024-10-25 16:04:08 7 Cells/uL F 0.0-400.0 Eosinophils [#/volume] in Blood by Automated count 2024-10-25 16:04:08 328 Cells/uL F 0.0-700.0 Neutrophils [#/volume] in Blood by Automated count 2024-10-25 16:04:08 1778 Cells/uL F 2000.0-8800. 0 Leukocytes [#/volume] in Blood by Automated count 2024-10-25 16:04:08 3.6 x 10^3 cells/uL F 4.0-11.0 Lymphocytes [#/volume] in Blood by Automated count 2024-10-25 16:04:08 1282 Cells/uL F 620.0-3660.0 Lymphocytes/100 leukocytes in Blood by Automated count 2024-10-22 23:14:11 31.5 % F Neutrophils/100 leukocytes in Blood by Automated count 2024-10-22 23:14:11 54.2 % F Monocytes/100 leukocytes in Blood by Automated count 2024-10-22 23:14:11 6.2 % F Eosinophils/100 leukocytes in Blood by Automated count 2024-10-22 23:14:11 7.2 % F Basophils/100 leukocytes in Blood by Automated count 2024-10-22 23:14:11 0.8 % F Monocytes [#/volume] in Blood by Automated count 2024-10-22 23:14:11 175 Cells/uL F 0.0-1100.0 Basophils [#/volume] in Blood by Automated count 2024-10-22 23:14:11 23 Cells/uL F 0.0-400.0 Eosinophils [#/volume] in Blood by Automated count 2024-10-22 23:14:11 203 Cells/uL F 0.0-700.0 Neutrophils [#/volume] in Blood by Automated count 2024-10-22 23:14:11 1528 Cells/uL F 2000.0-8800. 0 Leukocytes [#/volume] in Blood by Automated count 2024-10-22 23:14:11 2.8 x 10^3 cells/uL F 4.0-11.0 Lymphocytes [#/volume] in Blood by Automated count 2024-10-22 23:14:11 888 Cells/uL F 620.0-3660.0 Neutrophils [#/volume] in Blood by Automated count 2024-10-09 21:10:47 F Recollect - Clot Detected,Recolle ct - Clot Detected Eosinophils [#/volume] in Blood by Automated count 2024-10-09 21:10:47 F Recollect - Clot Detected,Recolle ct - Clot Detected Monocytes [#/volume] in Blood by Automated count 2024-10-09 21:10:47 F Recollect - Clot Detected,Recolle ct - Clot Detected Lymphocytes [#/volume] in Blood by Automated count 2024-10-09 21:10:47 F Recollect - Clot Detected,Recolle ct - Clot Detected Basophils [#/volume] in Blood by Automated count 2024-10-09 21:10:47 F Recollect - Clot Detected,Recolle ct - Clot Detected Eosinophils/100 leukocytes in Blood by Automated count 2024-10-09 21:10:46 F Recollect - Clot Detected,Recolle ct - Clot Detected Monocytes/100 leukocytes in Blood by Automated count 2024-10-09 21:10:46 F Recollect - Clot Detected,Recolle ct - Clot Detected Leukocytes [#/volume] in Blood by Automated count 2024-10-09 21:10:46 F Recollect - Clot Detected,Recolle ct - Clot Detected Neutrophils/100 leukocytes in Blood by Automated count 2024-10-09 21:10:45 F Recollect - Clot Detected,Recolle ct - Clot Detected Lymphocytes/100 leukocytes in Blood by Automated count 2024-10-09 21:10:45 F Recollect - Clot Detected,Recolle ct - Clot Detected Basophils/100 leukocytes in Blood by Automated count 2024-10-09 21:10:45 F Recollect - Clot Detected,Recolle ct - Clot Detected MineralBone Disorder Description Draw Date Result/Unit Status Ref Range Result Comments Alkaline phosphatase [Enzymatic activity/volume] in Serum or Plasma 2024-11-20 17:35:23 60 U/L F 46.0-116.0 CA CORRECTED 2024-11-07 08:15:27 9.1 mg/dL F CA*PO4 CORRCTD 2024-11-07 08:13:34 50.8 Calc F 21.0-53.0 CA/PHOS PRODUCT 2024-11-07 08:13:34 50.4 Calc F 21.0-53.0 Calcium [Mass/volume] in Serum or Plasma 2024-11-07 07:16:39 9 mg/dL F 8.7-10.4 Parathyrin.intact [Mass/volume] in Serum or Plasma 2024-11-07 03:47:24 209 pg/mL F 18.0-80.0 Phosphate [Mass/volume] in Serum or Plasma 2024-11-07 03:09:15 5.6 mg/dL F 2.4-5.1 Alkaline phosphatase [Enzymatic activity/volume] in Serum or Plasma 2024-10-25 15:41:11 55 U/L F 46.0-116.0 Alkaline phosphatase [Enzymatic activity/volume] in Serum or Plasma 2024-10-22 20:28:52 F RECOLLECT - OUTDATED SPECIMEN,RECOLLECT - OUTDATED SPECIMEN Parathyrin.intact [Mass/volume] in Serum or Plasma 2024-10-22 19:49:56 181 pg/mL F 18.0-80.0 CA CORRECTED 2024-10-10 07:38:29 8.5 mg/dL F CA*PO4 CORRCTD 2024-10-10 07:36:15 37.4 Calc F 21.0-53.0 CA/PHOS PRODUCT 2024-10-10 07:36:15 37.4 Calc F 21.0-53.0 Phosphate [Mass/volume] in Serum or Plasma 2024-10-10 06:20:46 4.4 mg/dL F 2.4-5.1 Calcium [Mass/volume] in Serum or Plasma 2024-10-10 06:20:46 8.5 mg/dL F 8.7-10.4 Alkaline phosphatase [Enzymatic activity/volume] in Serum or Plasma 2024-10-10 06:14:15 51 U/L F 46.0-116.0 Parathyrin.intact [Mass/volume] in Serum or Plasma 2024-10-09 07:16:31 F CANCELED - TEST CANCELED,CANCELED - TEST CANCELED Nutrition Description Draw Date Result/Unit Status Ref Range Result Comments Potassium [Moles/volume] in Serum or Plasma 2024-11-21 06:20:38 5.4 mEq/L F 3.5-5.1 VLDL-CHOL(CALC) 2024-11-20 17:36:21 14 mg/dL F 0.0-29.0 LDL-CHOLESTEROL 2024-11-20 17:36:21 90 mg/dL F 0.0-99.0 GLOBULIN 2024-11-20 17:36:21 3 g/dL F 0.9-5.0 A/G RATIO 2024-11-20 17:36:21 1.4 Calc F 1.0-2.5 CHOL/HDL RATIO 2024-11-20 17:36:21 2.4 Calc F 3.3-5.0 Cholesterol [Mass/volume] in Serum or Plasma 2024-11-20 17:35:23 177 mg/dL F 0.0-199.0 Protein [Mass/volume] in Serum or Plasma 2024-11-20 17:35:23 71 mg/dL F 0.0-149.0 Lactate dehydrogenase [Enzymatic activity/volume] in Serum or Plasma 2024-11-20 17:35:23 210 U/L F 120.0-246.0 Bicarbonate [Moles/volume] in Serum or Plasma 2024-11-20 17:35:23 21 mEq/L F 20.0-31.0 Albumin [Mass/volume] in Serum or Plasma by Bromocresol green (BCG) dye binding method 2024-11-20 17:35:23 4.1 g/dL F 3.2-4.8 Cholesterol in HDL [Mass/volume] in Serum or Plasma 2024-11-20 17:35:23 73 mg/dL F 40.0-60.0 Protein [Mass/volume] in Serum or Plasma 2024-11-20 17:35:23 7.1 g/dL F 5.7-8.2 Potassium [Moles/volume] in Serum or Plasma 2024-11-13 23:20:06 5.5 mEq/L F 3.5-5.1 Potassium [Moles/volume] in Serum or Plasma 2024-11-07 07:16:39 5.9 mEq/L F 3.5-5.1 Potassium [Moles/volume] in Serum or Plasma 2024-10-25 18:25:24 5.4 mEq/L F 3.5-5.5 GLOBULIN 2024-10-25 15:42:38 2.9 g/dL F 0.9-5.0 A/G RATIO 2024-10-25 15:42:38 1.3 Calc F 1.0-2.5 Lactate dehydrogenase [Enzymatic activity/volume] in Serum or Plasma 2024-10-25 15:41:11 238 U/L F 120.0-246.0 Bicarbonate [Moles/volume] in Serum or Plasma 2024-10-25 15:41:11 19 mEq/L F 20.0-31.0 Albumin [Mass/volume] in Serum or Plasma by Bromocresol green (BCG) dye binding method 2024-10-25 15:41:11 3.9 g/dL F 3.4-4.8 Protein [Mass/volume] in Serum or Plasma 2024-10-25 15:41:11 6.8 g/dL F 5.7-8.2 GLOBULIN 2024-10-23 04:29:02 F RECOLLECT - OUTDATED SPECIMEN,RECOLLECT - OUTDATED SPECIMEN,Unable to Calculate.,Unable to Calculate. A/G RATIO 2024-10-23 04:29:02 F Unable to Calculate.,RECOLLE CT - OUTDATED SPECIMEN,RECOLLECT - OUTDATED SPECIMEN,Unable to Calculate. Potassium [Moles/volume] in Serum or Plasma 2024-10-23 04:28:25 F RECOLLECT - OUTDATED SPECIMEN,RECOLLECT - OUTDATED SPECIMEN Bicarbonate [Moles/volume] in Serum or Plasma 2024-10-22 20:28:53 F RECOLLECT - OUTDATED SPECIMEN,RECOLLECT - OUTDATED SPECIMEN Lactate dehydrogenase [Enzymatic activity/volume] in Serum or Plasma 2024-10-22 20:28:53 F RECOLLECT - OUTDATED SPECIMEN,RECOLLECT - OUTDATED SPECIMEN Albumin [Mass/volume] in Serum or Plasma by Bromocresol green (BCG) dye binding method 2024-10-22 20:28:53 F RECOLLECT - OUTDATED SPECIMEN,RECOLLECT - OUTDATED SPECIMEN Protein [Mass/volume] in Serum or Plasma 2024-10-22 20:28:53 F RECOLLECT - OUTDATED SPECIMEN,RECOLLECT - OUTDATED SPECIMEN GLOBULIN 2024-10-10 07:36:15 2.9 g/dL F 0.9-5.0 A/G RATIO 2024-10-10 07:36:15 1.5 Calc F 1.0-2.5 Potassium [Moles/volume] in Serum or Plasma 2024-10-10 06:20:46 4.9 mEq/L F 3.5-5.5 Lactate dehydrogenase [Enzymatic activity/volume] in Serum or Plasma 2024-10-10 06:14:15 216 U/L F 120.0-246.0 Bicarbonate [Moles/volume] in Serum or Plasma 2024-10-10 06:14:15 23 mEq/L F 20.0-31.0 Albumin [Mass/volume] in Serum or Plasma by Bromocresol green (BCG) dye binding method 2024-10-10 06:14:15 4.3 g/dL F 3.4-4.8 Protein [Mass/volume] in Serum or Plasma 2024-10-10 06:14:15 7.2 g/dL F 5.7-8.2 Potassium [Moles/volume] in Serum or Plasma Encounters No encounter information to report Immunizations Ordered Immunization Name Filled Immunization Name Date Status Comments Refusal Reason TST-PPD intradermal 2024-10-29 19:20:00 Influenza, MDCK, trivalent, preservative 2024-03-18 14:00:00 Hep B, adult 2023-11-01 11:56:29 TST-PPD intradermal 2023-10-09 12:50:54 TST-PPD intradermal 2023-05-22 14:04:58 pneumococcal polysaccharide PPV23 2022-11-14 14:10:13 Hep B, adult 2022-09-28 15:02:49 Hep B, adult 2022-08-25 15:26:32 Hep B, adult 2022-07-28 16:40:37 TST-PPD intradermal 2022-06-21 14:09:53 TB Skin Test 2022-05-29 06:00:00 Plan of Treatment Planned Activity Provider Planned Date Details Commen ts Diagnostic Test Pending Deniz nicolle Corona 2024-09-02 05:00:00 Alanine aminotransferase [Enzymatic activity/volume] in Serum or Plasma [code = 1742-6] Diagnostic Test Pending [facility] 2024-08-06 12:29:25 Aluminum [Mass/volume] in Serum or Plasma [code = 5574-9] Diagnostic Test Pending [facility] 2024-08-06 12:28:31 25-Hydroxyvitamin D3+25-Hydroxyvitamin D2 [Mass/volume] in Serum or Plasma [code = 13845-9] Diagnostic Test Pending [facility] 2024-09-02 05:00:00 Parathyrin.intact [Mass/volume] in Serum or Plasma [code = 2731-8] Diagnostic Test Pending [facility] 2024-12-02 05:00:00 Ferritin [Mass/volume] in Serum or Plasma [code = 2276-4] Diagnostic Test Pending [facility] 2024-08-06 12:28:14 Sodium [Moles/volume] in Serum or Plasma [code = 2951-2] Diagnostic Test Pending [facility] 2024-08-06 12:27:56 Reticulocytes/100 erythrocytes in Blood by Automated count [code = 90629-6] Diagnostic Test Pending [facility] 2024-08-06 12:28:24 Cobalamin (Vitamin B12) [Mass/volume] in Serum or Plasma [code = 2132-9] Diagnostic Test Pending [facility] 2024-08-06 12:26:45 Folate [Mass/volume] in Serum or Plasma [code = 2284-8] Diagnostic Test Pending [facility] 2024-08-06 12:27:36 Potassium [Moles/volume] in Serum or Plasma [code = 2823-3] Diagnostic Test Pending [facility] 2024-08-06 12:26:34 Creatinine [Mass/volume] in Serum or Plasma [code = 2160-0] Diagnostic Test Pending Deniz De La Paz 2024-08-17 05:00:00 Hemoglobin [Mass/volume] in Blood [code = 718-7] Diagnostic Test Pending Deniz De La Paz [facility] 2024-11-12 17:47:29 In-Center Hemodialysis Treatment [code = TUH351]
--- OUTSIDE RECORDS SUMMARY | 2024-12-09 20:25 | XMS_ITS | Encounter Summary ---
Author Organization [facility] Healthcare Address [address] [place] [address] Care Team Providers Care Tool Repairer Name Role Phone Libby Glass NP Primary Care Provider [phone] Chaparro Holcomb MD Unavailable [phone] Leny Mares RN Unavailable Encounter Details Date Type Department Care Team (Late st Contact Info) Description 07/11/2024 Documentation [facility] [address] [place] [address] Cheyanne Combs RN Social History Tobacco Use Types Packs/Day Years Used Date Smoking Tobacco: Never Smokeless Tobacco: Never C Utilities Answer Date Recorded In the past 12 months has [employer] electric, gas, oil, or water company threatened to shut off services in your [...] 06/13/2024 How often do you attend chur ch or taoism services? 1 to 4 times per year 06/13/2024 Do you belong to any clubs o r organizations such as hindu groups, unions, fraternal or athletic groups, or [...] place to sleep or slept in a alf (including now)? No 06/12/2023 Housing Stability Vital Sign Answer Nikolai e Recorded In the last 12 months, was t here a time when you were not able to pay the mortgage or rent on time? No 06/13/2024 In the past 12 months, how m any times have you moved where you were living? 1 06/13/2024 At any time in the past [address] [facility], were you homeless or living in a alf (including now)? No 06/13/2024 Personal Safety Answer Date Recorded Have you ever been in or are you currently in a harmful physical or emotional relationship or is someone making you feel afraid or unsafe? 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 Gender Identity Not on file Sexual Orientation Not on file documented as of this encounter Plan of Treatment Not on file documented as of this encounter Visit Diagnoses Not on filedocumented in this encounter Additional Health Concerns Infection Onset Date Last Indicated Resolved Time COVID: Suspected 08/15/2024 08/15/2024 08/15/2024 3:49 PM CDT documented as of this encounter Care Teams Tool Repairer Relationship Specialty Start Date End Date Libby Glass NP [address] [facility] [address] [place] [address] PCP - General Internal Medicine 10/27/22 Chaparro Holcomb MD [address] [facility] [address] [place] [address] Referring Physician Nephrology 10/27/22 Leny Mares RN [address] [facility] [address] [place] [address] Assistant Professor Of Chemistry 02/15/23 [facility] 08/23/23 documented as of this encounter
--- OUTSIDE RECORDS SUMMARY | 2024-12-09 20:25 | XMS_ITS ---
Author Organization [facility] [address] Address [address] [place] [address] Care Team Providers Care Irrigation Equipment Remover Name Role Phone Libby Glass NP Primary Care Provider [phone] Chaparro Holcomb MD Unavailable [phone] Leny Mares RN Unavailable Dialysis Access Sites Type Status Location Placement Date Removal Da te AV fistula Active Left Upper Arm - Anterior 10/17/2023 Procedures Procedure Name Priority Date/Time Associated Diagnosis [...] HEPATITIS C ANTIBODY Routine 05/30/2023 12:42 PM HEALTH ANALYTICS CONSULTANT End stage renal disease (HCC) COLONOSCOPY Routine 10/27/2022 10:35 AM CDT from Last 3 Months or Most Recently Relevant to Health Maintenance Allergies No known active allergies Medications aspirin [...] by mouth daily 30 tablet 11 5 01/31/20 26 Active Additional Information Patient not taking.Reported on 08/15/2024 lidocaine (LIDODERM) 5 % Place 1 patch on the skin daily Remove & discard patch within 12 hours or as directed by . 30 patch Active Active Problems Problem Noted Date Diagnosed [...] next few days. [place] Assessment & Plan (06/27/2024 4:28 PM HEALTH ANALYTICS CONSULTANT): Unclear etiology for chest pain. Initial workup [...] dc Assessment & Plan (06/27/2024 4:01 PM HEALTH ANALYTICS CONSULTANT): On home Bumex 2mg, nifedipine, Imdur, hydral [...] phoslo Assessment & Plan (06/27/2024 4:01 PM HEALTH ANALYTICS CONSULTANT): On schedule as outpatient - 06/26 iHD completed - Local Dialysis Center [facility] in [facility]. - Nephrology ESRD Team following Immunizations Immunization Administration Dates Next Due Hep B Vaccine 11/01/2023, 3,08/25/2022, 3 Influenza, Unspecified 03/21/2024,2022,06/04/2022(Deferred: Patient Refused),03/18/2022 PPD TEST 10/09/2023, 3,06/21/2022, 2 Pneumococcal Polysaccharide PPV23 11/14/2022 Social History Tobacco Use Types Packs/Day Years Used Date Smoking Tobacco: Never Smokeless Tobacco: Never Tobacco Cessation:Counseling Given: Not Answered [facility] Utilities Answer Date Recorded In the past 12 months has th e electric, gas, oil, or water [employer] threatened to shut off services in your [...] week 06/13/2024 How often do you attend [facility] or buddhist services? 1 to 4 times per year 06/13/2024 Do you belong to any clubs o r organizations such as amish groups, unions, fraternal or athletic groups, or [...] place to sleep or slept in a assisted (including now)? No 06/12/2023 Housing Stability Vital Sign Answer Nikolai e Recorded In the last 12 months, was t here a time when you were not able to pay the mortgage or rent on time? No 06/13/2024 In the past 12 months, how m any times have you moved where you were living? 1 06/13/2024 At any time in the past 12 m [facility], were you homeless or living in a assisted (including now)? No 06/13/2024 Personal Safety Answer Date Recorded Have you ever been in or are you currently in a harmful physical or emotional relationship or is someone making you feel afraid or unsafe? Denies 08/15/2024 Sex and Gender Information Value Date Recorded Sex Assigned at Not on file Legal Sex Male 2:12 AM HEALTH ANALYTICS CONSULTANT Gender Identity Not on file Sexual Orientation [...] Mass Index 24.06 08/15/2024 6:20 PM CDT Results * HLA Antibody Screen by PRA or SAB per Schedule (Class I and Class II) (12/03/2024 10:00 AM CDT) Blood 12/03/2024 10:0 0 AM CDT Narrative HISTOTR[facility] - HEALTH ANALYTICS CONSULTANT Sample received in lab. PRA Screen ordered. [...] a method developed and validated by the [facility] HLA laboratory based on an FDA- approved IVD kit (LABScreen PRA, [employer], [facility] [place]). Interpretive comments: The percentage of beads with MFI > 750 is reported, which indicates the percentage of donor population estimated to be incompatible with the patient tested. PRA > 0% is consistent with alloimmunization to HLA. Testing performed at the [facility] Laboratory, [address] [place] [address], 5th floor, [place], [address]. [place] # [id number]. Donna Paulson, Ph.D., Remote Inpatient Coder, HLA Laboratory Lazaro Hernandez M.D., Ph.D., Microfilm Clerk, HLA Laboratory Tammy Estevez, Ph.D., CLIA Microfilm Clerk, [facility] Clinical Laboratories Current methodology and interpretive comments last revised on 09/26/2017. us Wayne Abraham MD LAB BLOOD ORDERABLES Final Resu lt HISTOTR[facility] * HLA Antibody Screen by PRA or SAB per Schedule (Class I and Class II) (11/03/2024 10:00 AM CDT) Blood 11/03/2024 10:0 0 AM CDT Narrative HISTOTRAC - HEALTH ANALYTICS CONSULTANT Sample received in lab and stored. No testing performed at this time. Wayne Abraham MD LAB BLOOD ORDERABLES Final Resu lt Performing Organization Address [facility] Co de Phone Number HISTOTRAC * HLA Antibody Screen by PRA or SAB per Schedule (Class I and Class II) (10/15/2024 10:00 AM CDT) Blood 10/15/2024 10:0 0 AM CDT Narrative HISTOTRAC - HEALTH ANALYTICS CONSULTANT Sample received in lab. PRA Screen ordered. Wayne Abraham MD LAB BLOOD ORDERABLES Final Resu lt Performing Organization Address [facility] de Phone Number HISTOTRAC * HLA Antibody Screen - PRA (Class I and Class II) (10/15/2024 10:00 AM CDT) Pathologist [facility] Class I Treatment Untreated HISTOTRAC Class I [...] a method developed and validated by the [facility] HLA laboratory based on an FDA- approved IVD kit (LABScreen PRA, [employer], [place], [place]). Interpretive comments: The percentage of beads with MFI > 750 is reported, which indicates the percentage of donor population estimated to be incompatible with the patient tested. PRA > 0% is consistent with alloimmunization to HLA. Testing performed at the [facility] Laboratory, [facility] [address], 5th floor, [facility], [place], [address]. [facility] # [id number]. Donna Paulson, Ph.D., Remote Inpatient Coder, HLA Laboratory Lazaro Hernandez M.D., Ph.D., Microfilm Clerk, HLA Laboratory Tammy Estevez, Ph.D., [place] Microfilm Clerk, [facility] Laboratories Current methodology and interpretive comments last revised on 09/26/2017. Wayne Abraham MD LAB BLOOD ORDERABLES Final Resu lt Performing Organization Address [facility] Co de Phone Number HISTOTR[facility] * PSA screen (01/09/2024 11:10 AM CDT) PSA 0.82 < OR = 4.00 ng/mL [facility] Comment: The total PSA value from this assay system is standardized against the WHO standard. The test result will be approximately 20% lower when compared to the equimolar-standardized total PSA ([place]man [place]). Comparison of serial PSA results should be interpreted with this fact in mind. This test was performed using the Siemens chemiluminescent method. Values obtained from different assay methods cannot be used interchangeably. PSA levels, regardless of value, should not be interpreted as absolute evidence of the presence or absence of disease. 01/09/2024 11:1 0 AM CDT 01/09/2024 11:11 AM CDT Libby Glass NP LAB BLOOD ORDERABLES Final Re sult Performing Organization Address City/[facility]/ZIP Co de Phone Number QUEST [facility] [address] [place] [address] * Hepatitis C antibody Blood (05/30/2023 12:42 PM HEALTH ANALYTICS CONSULTANT) Hep C Ab Nonreactive Nonreactive [facility] Comment:Antibodies to HCV no t detected. Does NOT exclude the possibility of recent exposure to HCV. Current interpretive data was last revised on 22 Blood 05/30/2023 12:4 2 PM HEALTH ANALYTICS CONSULTANT 05/30/2023 1:22 PM HEALTH ANALYTICS CONSULTANT Narrative GH[facility]AN [facility] - 05/30/2023 2:06 PM HEALTH ANALYTICS CONSULTANT This lab is being obtained as part of a Kidney transplant evaluation, is time sensitive, and should only be drawn during the evaluation visit at [facility] Lab. us Leta Rudolph MD LAB MICROBIOLOGY - GENERAL ORDERABLES Final Result [facility] One [facility] Department [place] [address] * Colonoscopy (10/27/2022 10:35 AM CDT) Anatomical Region Laterality Modality Other Historical Provider ENDOSCOPY PROCEDURES Tori l Result from Last 3 Months or Most Recently Relevant to Health Maintenance
--- OUTSIDE RECORDS SUMMARY | 2024-12-09 20:25 | XMS_ITS ---
Author Organization [facility] [address] Address [address] [place] [address] Care Team Providers Care Health Professor Name Role Phone Libby Glass NP Primary Care Provider Chaparro Holcomb MD Unavailable [phone] Leny Mares RN Unavailable Transplant Episode Kidney Candidate [facility] ([place], [place]) [facility] Center waitlisted on 11/02/2023 Marked as Inactive on 06/25/2024 Reason: 07 - Temporarily Too Sick Kidney CoordinatorRefaby Mares RN Email: N/A Scores Score Value Updated Exceptions/Reas ons CPRA Not available EPTS (Calc) 43 12/09/2024 [place] Organ Diagnosis Organ Primary Contributory Kidney Polycystic Kidneys Care Team Name Role Phone Fax Email Leny Mares RN Kidney Coordinator [phone] N/A Jyoti Cardoso Primary Heading Up Machine Operator N/A N/A N/A Chaparro Holcomb MD Referring Physician [phone] N/A Rhea Harrington Heat Treating Furnace Tender [phone] N/A N/A Events Pre-Transplant Referred: 01/11/2023 Evaluation began: 04/09/2023 Committee: 10/31/2023 UNOS qualified: 05/19/2022 Center waitlisted: 11/02/2023 Dialysis History Dialysis History Start End Type Comments Center 05/19/2022 In-center Hemodialysis TTS [facility] DIALYSIS Dialysis Center Information Center Phone Fax Address [facility] [phone] [address] [facility] [address]
--- OUTSIDE RECORDS SUMMARY | 2024-12-09 20:25 | XMS_ITS | Referral Summary ---
Author Organization [facility] [address] Address [address] [place] [address] Care Team Providers Care Plugger Name Role Phone Libby Glass NP Primary Care Provider [phone] Chaparro Holcomb MD Unavailable [phone] Leny Mares RN Unavailable Encounters Date Type Department Care Team Description 12/03/2024 10:00 AM CDT - 12/03/2024 11:59 PM CDT Hospital Encounter [address] [id number] ESRD (end stage renal disease) (HCC) Discharge Disposition: Discharge to home or self care 11/03/2024 10:00 AM CDT - 11/03/2024 11:59 PM T Hospital Encounter [address] [address] ESRD (end stage renal disease) (HCC) Discharge Disposition: Discharge to home or self care 10/17/2024 Telephone [facility] Transplant Kidney [address] [facility] [address] [phone] [place] [address] Leny Mares, RN 10/16/2024 Telephone [facility] Transplant Kidney [address] [facility] [address] [phone] [place] [address] Leny Mares RN 10/15/2024 10:00 AM CDT - 10/15/2024 11:59 PM CDT [place] [address] ESRD (end stage renal disease) ([facility]) Discharge Disposition: Discharge to home or self care from Last 3 Months Allergies No known active allergies Medications aspirin [...] next few days. Prescribed lidocaine patches at [place]. Assessment & Plan (06/27/2024 4:28 PM PUMPING PLANT OPERATOR): Unclear etiology for chest pain. Initial workup [...] to be hemolyzed) - can resume at md Assessment & Plan (06/27/2024 4:01 PM PUMPING PLANT OPERATOR): On home Bumex 2mg, nifedipine, Imdur, hydral [...] phoslo Assessment & Plan (06/27/2024 4:01 PM PUMPING PLANT OPERATOR): On schedule as outpatient - 06/26 iHD completed - Local Dialysis Center [facility] in [facility]. - Nephrology ESRD Team following Resolved Problems Problem Noted Date Diagnosed Date Resolved Date BMI 25.0-25.9,adult 02/28/2023 07/01/19 25 Assessment & Plan (03/21/2024 1:04 PM CDT): Weight/BMI is in healthy range. Continue healthy lifestyle to maintain. Assessment & Plan (01/07/2024 1:34 PM CDT): Weight/BMI is in healthy range. Continue healthy lifestyle to maintain. Immunizations Immunization Administration Dates Next Due Hep B Vaccine 11/01/2023, 3,08/25/2022, 3 Influenza, Unspecified 03/21/2024,2022,06/04/2022(Deferred: Patient Refused),03/18/2022 PPD TEST 10/09/2023, 3,06/21/2022, 2 Pneumococcal Polysaccharide PPV23 11/14/2022 Social History Tobacco Use Types Packs/Day Years Used Date Smoking Tobacco: Never Smokeless Tobacco: Never Tobacco Cessation:Counseling Given: Not Answered [facility] Utilities Answer Date Recorded In the past 12 months has e [employer], gas, oil, or water [employer] threatened to shut off services in your [...] often do you attend chur ch or mormonism services? 1 to 4 times per year 06/13/2024 Do you belong to any clubs o r organizations such as restorationism groups, unions, fraternal or athletic groups, or [...] place to sleep or slept in a chcf (including now)? No 06/12/2023 Housing Stability Vital Sign Answer Nikolai e Recorded In the last 12 months, was t here a time when you were not able to pay the mortgage or rent on time? No 06/13/2024 In the past 12 months, how m any times have you moved where you were living? 1 06/13/2024 At any time in the past 12 m [facility], were you homeless or living in a chcf (including now)? No 06/13/2024 Personal Safety Answer Date Recorded Have you ever been in or are you currently in a harmful physical or emotional relationship or is someone making you feel afraid or unsafe? Denies 08/15/2024 Sex and Gender Information Value Date Recorded Sex Assigned at Not on file Legal Sex Male 2:12 AM PUMPING PLANT OPERATOR Gender Identity Not on file Sexual [...] 08/15/2024 6:20 PM CDT Plan of Treatment Not on file Procedures Procedure Name Priority Date/Time Associated Diagnosis [...] HEPATITIS C ANTIBODY Routine 05/30/2023 12:42 PM PUMPING PLANT OPERATOR End stage renal disease (HCC) COLONOSCOPY Routine 10/27/2022 10:35 AM CDT from Last 3 Months or Most Recently Relevant to Health Maintenance Results * HLA Antibody Screen by PRA or SAB per Schedule (Class I and Class II) (12/03/2024 10:00 AM CDT) Blood 12/03/2024 10:0 0 AM CDT Narrative HISTOTRAC - PUMPING PLANT OPERATOR Sample received in lab. PRA Screen ordered. [...] a method developed and validated by the [facility] HLA laboratory based on an FDA- approved IVD kit (LABScreen PRA, [employer], [place], [place]). Interpretive comments: The percentage of beads with MFI > 750 is reported, which indicates the percentage of donor population estimated to be incompatible with the patient tested. PRA > 0% is consistent with alloimmunization to HLA. Testing performed at the [facility] Laboratory, [address] [place] [address], 5th floor, [place], [address]. [place] # [id number]. Donna Paulson, Ph.D., Safety Director, HLA Laboratory Lazaro Hernandez M.D., Ph.D., Vp Training, HLA Laboratory Tammy Estevez, Ph.D., CLIA Vp Training, [facility] Laboratories Current methodology and interpretive comments last revised on 09/26/2017. us Wayne Abraham MD LAB BLOOD ORDERABLES Final Resu lt [facility]OT[facility] * HLA Antibody Screen by PRA or SAB per Schedule (Class I and Class II) (11/03/2024 10:00 AM CDT) Blood 11/03/2024 10:0 0 AM CDT Narrative HISTOTRAC - PUMPING PLANT OPERATOR Sample received in lab and stored. No testing performed at this time. us Wayne Abraham MD LAB BLOOD ORDERABLES Final Resu lt HISTOTRAC * HLA Antibody Screen by PRA or SAB per Schedule (Class I and Class II) (10/15/2024 10:00 AM CDT) Blood 10/15/2024 10:0 0 AM CDT Narrative HISTOTRAC - PUMPING PLANT OPERATOR Sample received in lab. PRA Screen ordered. [...] a method developed and validated by the [facility] HLA laboratory based on an FDA- approved IVD kit (LABScreen PRA, [employer], [place], [place]). Interpretive comments: The percentage of beads with MFI > 750 is reported, which indicates the percentage of donor population estimated to be incompatible with the patient tested. PRA > 0% is consistent with alloimmunization to HLA. Testing performed at the [facility] Laboratory, [address] [place] [address], 5th floor, [place], [address]. CLIA # [id number]. Donna Taniguchi, Ph.D., Safety Director, HLA Laboratory Lazaro Hernandez M.D., Ph.D., Vp Training, HLA Laboratory Tammy Estevez, Ph.D., ABIGAIL Vp Training, [facility] Laboratories Current methodology and interpretive comments last revised on 09/26/2017. Wayne Abraham MD LAB BLOOD ORDERABLES Final Resu lt Performing Organization Address [facility] de Phone Number HISTOTRAC * PSA screen (01/09/2024 11:10 AM CDT) PSA 0.82 < OR = 4.00 ng/mL [facility] Comment: The total PSA value from this assay system is standardized against the WHO standard. The test result will be approximately 20% lower when compared to the equimolar-standardized total PSA (Osman [place]). Comparison of serial PSA results should be interpreted with this fact in mind. This test was performed using the Siemens chemiluminescent method. Values obtained from different assay methods cannot be used interchangeably. PSA levels, regardless of value, should not be interpreted as absolute evidence of the presence or absence of disease. 01/09/2024 11:1 0 AM CDT 01/09/2024 11:11 AM CDT Libby Glass WELLNESS INSTRUCTOR LAB BLOOD ORDERABLES Final Re sult Performing Organization Address [facility] de Phone Number QUEST [facility] [address] [place] [address] * Hepatitis C antibody Blood (05/30/2023 12:42 PM PUMPING PLANT OPERATOR) Hep C Ab Nonreactive Nonreactive [facility] Comment:Antibodies to HCV no t detected. Does NOT exclude the possibility of recent exposure to HCV. Current interpretive data was last revised on 22 Blood 05/30/2023 12:4 2 PM PUMPING PLANT OPERATOR 05/30/2023 1:22 PM PUMPING PLANT OPERATOR Narrative [facility] - 05/30/2023 2:06 PM PUMPING PLANT OPERATOR This lab is being obtained as part of a Kidney transplant evaluation, is time sensitive, and should only be drawn during the evaluation visit at [facility]. Leta Rudolph MD LAB MICROBIOLOGY - GENERAL ORDERABLES Final Result [facility] [place] [address] * Colonoscopy (10/27/2022 10:35 AM CDT) Anatomical Region Laterality Modality Other us Historical Provider ENDOSCOPY PROCEDURES Tori l Result from Last 3 Months or Most Recently Relevant to Health Maintenance Insurance [employer] [facility] [employer] ADV[employer]AGE [facility] [employer] [facility] [employer] Advance Directives For more information, please contact: [phone] * Full Code (Latest Code Status on File) Date Activated Date Inactivated Comments 08/15/2024 7:16 PM 08/16/2024 4:50 PM * Full Code Date Activated Date Inactivated Comments 06/25/2024 1:35 AM 06/27/2024 10:47 PM * Full Code Date Activated Date Inactivated Comments 10/17/2023 10:40 AM 10/19/2023 5:30 PM Care Teams Plugger Relationship Specialty Start Date End Date Libby Glass, WELLNESS INSTRUCTOR [address] [facility] [address] [place] [address] PCP - General Internal Medicine 10/27/22 Chaparro Holcomb MD [address] [facility] [address] [place] [address] Referring Physician Nephrology 10/27/22 Leny Mares, RN [address] [facility] [address] [employer] [place] [employer], [place] [id number] Software Development Test Engineer 02/15/23 Dental [facility] Dentist 08/23/23
--- NOTE | 2024-12-09 20:29 | ECG_ITS ---
Test Date: 2024-12-09 20:36:01 Measurements Intervals [place] Rate: 92 P: 67 RI: 160 QRS: -5 QRSD: 101 T: 18 QT: 339 QTc: 421 Interpretive Statements SINUS RHYTHM NORMAL ELECTROCARDIOGRAM No previous ECG available for comparison Electronically Signed On 12-10-2024 07:47:42 CDT by Ronal Welsh M.D.
[2024-12-09 21:03] LABS: Hematocrit 29.7 % (42.0-52.0); Hemoglobin 9.8 g/dL (14.0-18.0); Immature Granulocyte Percent A 0.2 % (0-0.5); Lymphocytes Absolute Auto 1.02 K/mm3 (0.9-3.2); Mean Corpuscular HGB Conc 33.0 g/dl (32-36); Mean Corpuscular Hemoglobin 28.7 pg (26-34); Mean Corpuscular Volume 87.1 fl (80-100); Nucleated Red Blood Cells Absolute Auto 0.000 K/mm3 (0.0-0.012); Nucleated Red Blood Cells Perc 0.0 % (0.0-0.2); Platelet Count Result 167 k/mm3 (150-375); Red Blood Count 3.41 M/mm3 (4.6-6.20); White Blood Count 5.3 K/mm3 (4.5-10.0)
[2024-12-09 21:14] LABS: INR 1.0; Partial Thromboplastin Time 28.5 Seconds (22.3-36.8); Prothrombin Time 13.3 Seconds (11.1-14.7)
[2024-12-09] MEDS: ASPIRIN 81 MG CHEWABLE TABLET 324 MG PO (21:33)
--- OUTSIDE RECORDS SUMMARY | 2024-12-09 21:45 | XMS_ITS | Clinical Summary ---
Author Organization [facility] Address [address] [place] [address] Care Team Providers Care Agricultural Produce Commission Agent Name Role Phone John Acharya MD Primary Care Provider [phone] Source Comments [facility],non-owned Affiliates and Associated Physician Practices is amultiple site organization consisting of ambulatory clinics and hospital sitesin [place], [place], [place] and [place]. This disclosure is being madepursuant to the Care Everywhere program and may not contain all information available regarding this patient. Last updated 18.[facility] Allergies No known active allergies Medications * [...] on file Legal Sex Male 9:07 AM EGG BREAKER Gender Identity Not on file Sexual Orientation Not on file Last Filed Vital Signs Vital Sign Reading Time Taken Comments Blood Pressure 123/81 06/30/2024 2:15 PM EGG BREAKER Pulse 91 06/30/2024 2:15 PM EGG BREAKER Temperature 37.5 C (99.5 F) 06/30/2024 1:15 PM EGG BREAKER Respiratory Rate 20 06/30/2024 2:15 PM EGG BREAKER Oxygen Saturation 95% 06/30/2024 2:15 PM EGG BREAKER Inhaled Oxygen Concentration - - Weight 83.5 kg (184 lb) 06/30/2024 1:15 PM EGG BREAKER Height 185.4 cm (6' 1) 06/30/2024 1:15 PM EGG BREAKER Body Mass Index 24.28 06/30/2024 1:15 PM EGG BREAKER Plan of Treatment Upcoming Encounters Date Type Department Care Team (Late st Contact Info) Description 06/29/2025 2:15 PM EGG BREAKER Appointment [facility] Health Vascular Services [address], [address] [place] [address] [place] [address] [facility] [address] [place] [address] Health Maintenance Due Date Last [...] PANEL (CALCIUM TOTAL) STAT 08/08/2022 10:08 AM EGG BREAKER Preop examination from Last 3 Months or Most Recently Relevant to Health Maintenance Results * (ABNORMAL) BASIC METABOLIC PANEL (CALCIUM TOTAL) (08/08/2022 10:08 AM EGG BREAKER) Glucose 97 70 - 105 mg/dL 08/08/2022 10:33 AM EGG BREAKER [facility] Sodium 137 136 - 145 mmol/L 08/08/2022 10:33 AM EGG BREAKER [facility] Potassium 4.5 3.5 - 5.1 mmol/L 08/08/2022 10:[address] [facility] Chloride 99 98 - 107 mmol/L 08/08/2022 10:[address] [facility] CO2 25 23 - 31 mmol/L 08/08/2022 10:[address] [facility] Calcium 8.4 8.4 - 10.4 mg/dL 08/08/2022 10:[address] [facility] Anion Gap 13 8 - 18 mmol/L 08/08/2022 10:[address] [facility] BUN 54(H) 8.4 - 25.7 mg/dL 08/08/2022 10:[address] [facility] Creatinine 11.06(H) 0.72 - 1.25 mg/dL 08/08/2022 10:[address] [facility] eGFR by CKD-EPI 5(L) >=90 mL/min/1.7 3 m2 08/08/2022 10:[address] [facility] Blood BLOOD SPECIMEN / Unknown Venipuncture / Unknown 08/08/2022 10:08 AM EGG BREAKER 08/08/2022 10:16 AM [facility] us Suzi Allen DO LAB - CHEMISTRY ORDERABLES Tori quintana Result [facility] [address] [place] [address] from Last 3 Months or Most Recently Relevant to Health Maintenance Insurance MEDICAID - [place] UHC MANAGED MEDICARE ADV Care Teams Agricultural Produce Commission Agent Relationship Specialty Start Date End Date [place]ary[place] MD [address] [address] PCP - General 06/19/22
--- OUTSIDE RECORDS SUMMARY | 2024-12-09 21:46 | XMS_ITS | Encounter Summary ---
Author Organization [facility] Address [address] [place] [address] Care Team Providers Care Electrical Assembly Technician Name Role Phone Libby Glass NP Primary Care Provider [phone] Chaparro Holcomb MD Unavailable [phone] Leny Mares RN Unavailable Encounter Details Date Type Department Care Team (Late st Contact Info) Description 07/11/2024 Documentation [facility] [address] [place] [address] Cheyanne Combs RN Social History Tobacco Use Types Packs/Day Years Used Date Smoking Tobacco: Never Smokeless Tobacco: Never C Utilities Answer Date Recorded In the past 12 months has [employer] electric, gas, oil, or water company threatened [...] often do you attend chur ch or mandaeism services? 1 to 4 times per year 06/13/2024 Do you belong to any clubs o r organizations such as anabaptist groups, unions, fraternal or athletic groups, or [...] place to sleep or slept in a correction (including now)? No 06/12/2023 Housing Stability Vital Sign Answer Nikolai e Recorded In the last 12 months, was t here a time when you were not able to pay the mortgage or rent on time? No 06/13/2024 In the past 12 months, how m any times have you moved where you were living? 1 06/13/2024 At any time in the past 12 m [facility], were you homeless or living in a correction (including now)? No 06/13/2024 Personal Safety Answer Date Recorded Have you ever been in or are you currently in a harmful physical or emotional relationship or is someone making you feel afraid or unsafe? Denies 07/11/2024 Sex and Gender Information Value Date Recorded Sex Assigned at Not on file Legal Sex Male 2:12 AM PRODUCTION HARDENER Gender Identity Not on file Sexual Orientation Not on file documented as of this encounter Plan of Treatment Not on file documented as of this encounter Visit Diagnoses Not on filedocumented in this encounter Additional Health Concerns Infection Onset Date Last Indicated Resolved Time COVID: Suspected 08/15/2024 08/15/2024 08/15/2024 3:49 PM CDT documented as of this encounter Care Teams Electrical Assembly Technician Relationship Specialty Start Date End Date Libby Glass NP [address] [facility] [address] [place] [address] PCP - General Internal Medicine 10/27/22 Chaparro Holcomb MD [address] [facility] [address] [place] [address] Referring Physician Nephrology 10/27/22 Leny Mares RN [address] [facility] [address] [place] [address] Electroplater 02/15/23 [facility]ist 08/23/23 documented as of this encounter
--- OUTSIDE RECORDS SUMMARY | 2024-12-09 21:46 | XMS_ITS ---
Author Organization [facility] [address] Address [address] [place] [address] Care Team Providers Care Regional Office Coordinator Name Role Phone Libby Glass NP Primary Care Provider [phone] Chaparro Holcomb MD Unavailable [phone] Leny Mares RN Unavailable Dialysis Access [...] HEPATITIS C ANTIBODY Routine 05/30/2023 12:42 PM FOOD INSPECTOR End stage renal disease (HCC) COLONOSCOPY Routine [...] next few days. Prescribed lidocaine patches at ms. Assessment & Plan (06/27/2024 4:28 PM FOOD INSPECTOR): Unclear etiology for chest pain. Initial workup [...] dc Assessment & Plan (06/27/2024 4:01 PM FOOD INSPECTOR): On home Bumex 2mg, nifedipine, Imdur, hydral [...] phoslo Assessment & Plan (06/27/2024 4:01 PM FOOD INSPECTOR): On schedule as outpatient - 06/26 iHD completed - Local Dialysis Center [facility] in [facility]. - Nephrology ESRD Team following Immunizations Immunization Administration Dates Next Due Hep B Vaccine 11/01/2023, 3,08/25/2022, 3 Influenza, Unspecified 03/21/2024,2022,06/04/2022(Deferred: Patient Refused),03/18/2022 PPD TEST 10/09/2023, 3,06/21/2022, 2 Pneumococcal Polysaccharide PPV23 11/14/2022 Social History Tobacco Use Types Packs/Day Years Used Date Smoking Tobacco: Never Smokeless Tobacco: Never Tobacco Cessation:Counseling Given: Not Answered [facility] Utilities Answer Date Recorded In the past 12 months has th e electric, gas, oil, or water [employer] threatened to shut off services in your [...] week 06/13/2024 How often do you attend [facility] or congregation services? 1 to 4 times per year 06/13/2024 Do you belong to any clubs o r organizations such as samaritan groups, unions, fraternal or athletic groups, or [...] place to sleep or slept in a fdc (including now)? No 06/12/2023 Housing Stability Vital Sign Answer Nikolai e Recorded In the last 12 months, was t here a time when you were not able to pay the mortgage or rent on time? No 06/13/2024 In the past 12 months, how m any times have you moved where you were living? 1 06/13/2024 At any time in the past 12 m [facility], were you homeless or living in a fdc (including now)? No 06/13/2024 Personal Safety Answer Date Recorded Have you ever been in or are you currently in a harmful physical or emotional relationship or is someone making you feel afraid or unsafe? Denies 08/15/2024 Sex and Gender Information Value Date Recorded Sex Assigned at Not on file Legal Sex Male 2:12 AM FOOD INSPECTOR Gender Identity Not on file Sexual Orientation [...] 10:0 0 AM CDT Narrative HISTOTRAC - FOOD INSPECTOR Sample received in lab. PRA Screen ordered. [...] a method developed and validated by the [facility] HLA laboratory based on an FDA- approved IVD kit (LABScreen PRA, [place], [facility] [place]). Interpretive comments: The percentage of beads with MFI > 750 is reported, which indicates the percentage of donor population estimated to be incompatible with the patient tested. PRA > 0% is consistent with alloimmunization to HLA. Testing performed at the [facility], [address] [place] [address], 5th floor, [place], [address]. [place] # [id number]. Donna Paulson, Ph.D., Environmental Conflict Manager, HLA Laboratory Lazaro Hernandez M.D., Ph.D., Food Writer, HLA Laboratory Tammy Estevez, Ph.D., CLIA Food Writer, [facility] Clinical Laboratories Current methodology and interpretive comments last revised on 09/26/2017. us Wayne Abraham MD LAB BLOOD ORDERABLES Final Resu lt HISTOTRAC * HLA Antibody Screen by PRA or SAB per Schedule (Class I and Class II) (11/03/2024 10:00 AM CDT) Blood 11/03/2024 10:0 0 AM CDT Narrative HISTOTRAC - FOOD INSPECTOR Sample received in lab and stored. No testing performed at this time. Wayne Abraham MD LAB BLOOD ORDERABLES Final Resu lt Performing Organization Address [facility] Co de Phone Number HISTOTRAC * HLA Antibody Screen by PRA or SAB per Schedule (Class I and Class II) (10/15/2024 10:00 AM CDT) Blood 10/15/2024 10:0 0 AM CDT Narrative HISTOTRAC - FOOD INSPECTOR Sample received in lab. PRA Screen ordered. Wayne Abraham MD LAB BLOOD ORDERABLES Final Resu lt Performing Organization Address [facility] [[email or web address]] de Phone Number HISTOTRAC * HLA Antibody Screen - PRA (Class I and Class II) (10/15/2024 10:00 AM CDT) Pathologist [facility] Class I Treatment Untreated HISTOTRAC [...] a method developed and validated by the [facility] HLA laboratory based on an FDA- approved IVD kit (LABScreen PRA, [place], [place], [place]). Interpretive comments: The percentage of beads with MFI > 750 is reported, which indicates the percentage of donor population estimated to be incompatible with the patient tested. PRA > 0% is consistent with alloimmunization to HLA. Testing performed at the [facility] Laboratory, [facility] [address], 5th floor, [facility], [place], [address]. [facility] # [id number]. Donna Paulson, Ph.D., Environmental Conflict Manager, HLA Laboratory Lazaro Hernandez M.D., Ph.D., Food Writer, HLA Laboratory Tammy Estevez, Ph.D., [place] Food Writer, [facility] Laboratories Current methodology and interpretive comments last revised on 09/26/2017. Wayne Abraham MD LAB BLOOD ORDERABLES Final Resu lt Performing Organization Address [facility] Co de Phone Number HISTOTRAC * PSA screen (01/09/2024 11:10 AM CDT) PSA 0.82 < OR = 4.00 ng/mL [facility] Comment: The total PSA value from this assay system is standardized against the WHO standard. The test result will be approximately 20% lower when compared to the equimolar-standardized total PSA (Osman Ucon). Comparison of serial PSA results should be [...] ORDERABLES Final Re sult Performing Organization Address City/[facility]/ZIP Co de Phone Number [facility] [address] [place] [address] * Hepatitis C antibody Blood (05/30/2023 12:42 PM FOOD INSPECTOR) Hep C Ab Nonreactive Nonreactive [facility] Comment:Antibodies to HCV no t detected. Does NOT exclude the possibility of recent exposure to HCV. Current interpretive data was last revised on 22 Blood 05/30/2023 12:4 2 PM FOOD INSPECTOR 05/30/2023 1:22 PM FOOD INSPECTOR Narrative [facility] - 05/30/2023 2:06 PM FOOD INSPECTOR This lab is being obtained as part of a Kidney transplant evaluation, is time sensitive, and should only be drawn during the evaluation visit at [facility]. us Leta Rudolph MD LAB MICROBIOLOGY - GENERAL ORDERABLES Final Result [facility] [address] [facility] Department [place] [address] * Colonoscopy (10/27/2022 10:35 AM CDT) Anatomical Region Laterality Modality Other Historical Provider ENDOSCOPY PROCEDURES Tori l Result from Last 3 Months or Most Recently Relevant to Health Maintenance
--- OUTSIDE RECORDS SUMMARY | 2024-12-09 21:46 | XMS_ITS | Clinical Summary ---
Author Organization [facility] [address] Address [address] [place] [address] Care Team Providers Care Tobacco Stripper Name Role Phone Libby Glass NP Primary Care Provider [phone] Chaparro Holcomb MD Unavailable [phone] Leny Mares RN Unavailable Allergies No known active allergies Medications aspirin [...] ms. Assessment & Plan (06/27/2024 4:28 PM CLINICAL PSYCHOLOGY PROFESSOR): Unclear etiology for chest pain. Initial workup [...] dc Assessment & Plan (06/27/2024 4:01 PM CLINICAL PSYCHOLOGY PROFESSOR): On home Bumex 2mg, nifedipine, Imdur, hydral [...] phoslo Assessment & Plan (06/27/2024 4:01 PM CLINICAL PSYCHOLOGY PROFESSOR): On schedule as outpatient - 06/26 iHD completed - Local Dialysis Center [facility] in [facility]. - Nephrology ESRD Team [...] - 12/03/2024 11:59 PM CDT Hospital Encounter [address] [address] ESRD (end stage renal disease) ([facility]) Discharge Disposition: Discharge to home or self care 11/03/2024 10:00 AM CDT - 11/03/2024 11:59 PM CDT Hospital Encounter [address] [address] ESRD (end stage renal disease) ([facility]) Discharge Disposition: Discharge to home or self care 10/17/2024 Telephone [facility] Transplant Kidney [address] [facility] [address] [phone] [place] [address] Leny Mares, TERRI 10/16/2024 Telephone [facility] Transplant Kidney [address] [facility] [address] [phone] [place] [address] Leny Mares, TERRI 10/15/2024 10:00 AM CDT - 10/15/2024 11:59 PM CDT Hospital Encounter [address] [address] ESRD (end stage renal disease) ([facility]) Discharge Disposition: Discharge to home or self [...] Tobacco: Never Tobacco Cessation:Counseling Given: Not Answered [facility] Utilities Answer Date Recorded In the past 12 months has [employer], [employer], oil, or water [employer] threatened to shut off services in your [...] How often do you attend chur or latter-day services? 1 to 4 times per year 06/13/2024 Do you belong to any clubs o r organizations such as nondenominational groups, unions, fraternal or athletic groups, or [...] place to sleep or slept in a penitentiary (including now)? No 06/12/2023 Housing Stability Vital Sign Answer Nikolai e Recorded In the last 12 months, was t here a time when you were not able to pay the mortgage or rent on time? No 06/13/2024 In the past 12 months, how m any times have you moved where you were living? 1 06/13/2024 At any time in the past 12 m [facility], were you homeless or living in a penitentiary (including now)? No 06/13/2024 Personal Safety Answer Date Recorded Have you ever been in or are you currently in a harmful physical or emotional relationship or is someone making you feel afraid or unsafe? Denies 08/15/2024 Sex and Gender Information Value Date Recorded Sex Assigned at Not on file Legal Sex Male 2:12 AM CLINICAL PSYCHOLOGY PROFESSOR Gender Identity Not on file Sexual Orientation [...] HEPATITIS C ANTIBODY Routine 05/30/2023 12:42 PM CLINICAL PSYCHOLOGY PROFESSOR End stage renal disease (HCC) COLONOSCOPY Routine 10/27/2022 10:35 AM CDT from Last 3 Months or Most Recently Relevant to Health Maintenance Results * HLA Antibody Screen by PRA or SAB per Schedule (Class I and Class II) (12/03/2024 10:00 AM CDT) Blood 12/03/2024 10:0 0 AM CDT Narrative HISTOTRAC - CLINICAL PSYCHOLOGY PROFESSOR Sample received in lab. PRA Screen ordered. [...] a method developed and validated by the [facility] HLA laboratory based on an FDA- approved IVD kit (LABScreen PRA, [employer], [place], [place]). Interpretive comments: The percentage of beads with MFI > 750 is reported, which indicates the percentage of donor population estimated to be incompatible with the patient tested. PRA > 0% is consistent with alloimmunization to HLA. Testing performed at the [facility] Laboratory, [address] [place] [address], 5th floor, [place], [address]. CLIA # [id number]. Donna Paulson, Ph.D., Crib Tender, HLA Laboratory Lazaro Hernandez M.D., Ph.D., Can Sealer, HLA Laboratory Tammy Estevez, Ph.D., CLIA Can Sealer, [facility] Clinical Laboratories Current methodology and interpretive comments last revised on 09/26/2017. Wayne Abraham MD LAB BLOOD ORDERABLES Final Resu lt Performing Organization Address City/[facility]/ZIP Co de Phone Number HISTOTRAC * HLA Antibody Screen by PRA or SAB per Schedule (Class I and Class II) (11/03/2024 10:00 AM CDT) Blood 11/03/2024 10:0 0 AM CDT Narrative HISTOTRAC - CLINICAL PSYCHOLOGY PROFESSOR Sample received in lab and stored. No testing performed at this time. Wayne Abraham MD LAB BLOOD ORDERABLES Final Resu lt HISTOTRAC * HLA Antibody Screen by PRA or SAB per Schedule (Class I and Class II) (10/15/2024 10:00 AM CDT) Blood 10/15/2024 10:0 0 AM CDT Narrative HISTOTRAC - CLINICAL PSYCHOLOGY PROFESSOR Sample received in lab. PRA Screen ordered. us Wayne Abraham MD LAB BLOOD ORDERABLES Final Resu lt Performing Organization Address [facility]/ZIP Co de Phone Number HISTGERRYAC * HLA [...] a method developed and validated by the [facility] HLA laboratory based on an FDA- approved IVD kit (LABScreen PRA, [employer], [place], [place]). Interpretive comments: The percentage of beads with MFI > 750 is reported, which indicates the percentage of donor population estimated to be incompatible with the patient tested. PRA > 0% is consistent with alloimmunization to HLA. Testing performed at the [facility] Laboratory, [address] [place] [address], 5th floor, [place], [address]. [place] # [id number]. Donna Paulson, Ph.D., Crib Tender, HLA Laboratory Lazaro Hernandez M.D., Ph.D., Can Sealer, HLA Laboratory Tammy Estevez, Ph.D., CLIA Can Sealer, [facility] Clinical Laboratories Current methodology and interpretive comments last revised on 09/26/2017. Wayne Abraham MD LAB BLOOD ORDERABLES Final Resu lt Performing Organization Address [facility]/ZIP Co de Phone Number HISTOTRAC * PSA screen (01/09/2024 11:10 AM CDT) PSA 0.82 < OR = 4.00 ng/mL [facility] Comment: The total PSA value from this assay system is standardized against the WHO standard. The test result will be approximately 20% lower when compared to the equimolar-standardized total PSA (Osman Kenyon). Comparison of serial PSA results should be [...] ORDERABLES Final Re sult Performing Organization Address City/[facility] Co de Phone Number [place] [address] [place] [address] * Hepatitis C antibody Blood (05/30/2023 12:42 PM CLINICAL PSYCHOLOGY PROFESSOR) Pathologist [facility] Hep C Ab Nonreactive Nonreactive [facility] Comment:Antibodies to HCV no t detected. Does NOT exclude the possibility of recent exposure to HCV. Current interpretive data was last revised on 22 Blood 05/30/2023 12:4 2 PM CLINICAL PSYCHOLOGY PROFESSOR 05/30/2023 1:22 PM CLINICAL PSYCHOLOGY PROFESSOR Narrative [facility] - 05/30/2023 2:06 PM CLINICAL PSYCHOLOGY PROFESSOR This lab is being obtained as part of a Kidney transplant evaluation, is time sensitive, and should only be drawn during the evaluation visit at [facility]. Leta Rudolph MD LAB MICROBIOLOGY - GENERAL ORDERABLES Final Result Performing Organization Address City/[facility]/ZIP Co de Phone Number [facility] One [facility] [place] [address] * Colonoscopy (10/27/2022 10:35 AM CDT) Anatomical Region Laterality Modality Other us Historical Provider ENDOSCOPY PROCEDURES Tori l Result from Last 3 Months or Most Recently Relevant to Health Maintenance Insurance [employer] UHC MEDICARE ADVANTAGE UHC MEDICARE ADVANTAGE [facility] MEDICARE ADVANTAGE IDPA Advance Directives For more information, please contact: [phone] * Full Code (Latest Code Status on File) Date Activated Date Inactivated Comments 08/15/2024 7:16 PM 08/16/2024 4:50 PM * Full Code Date Activated Date Inactivated Comments 06/25/2024 1:35 AM 06/27/2024 10:47 PM * Full Code Date Activated Date Inactivated Comments 10/17/2023 10:40 AM 10/19/2023 5:30 PM Care Teams Tobacco Stripper Relationship Specialty Start Date End Date Libby Glass NP [address] [facility] [address] [place] [address] PCP - General Internal Medicine 10/27/22 Chaparro Holcomb MD [address] [address] Referring Physician Nephrology 10/27/22 Leny Mares, RN [address] [facility] [address] [place] [address] [id number] Extractor Loader And Unloader 02/15/23 Dental [facility] Dentist 08/23/23
--- OUTSIDE RECORDS SUMMARY | 2024-12-09 21:46 | XMS_ITS ---
Author Organization [facility] [address] Address [address] [place] [address] Care Team Providers Care Payroll Clerk Name Role Phone Libby Glass NP Primary Care Provider Chaparro Holcomb MD Unavailable [phone] Leny Mares RN Unavailable Transplant Episode Kidney Candidate [facility] ([place], [place]) [facility] Center waitlisted on 11/02/2023 Marked as Inactive on 06/25/2024 Reason: 07 - Temporarily Too Sick Kidney CoordinatorRefaby Mares RN Email: N/A Scores Score Value Updated Exceptions/Reas ons CPRA Not available EPTS (Calc) 43 12/09/2024 [place] Organ Diagnosis Organ Primary Contributory Kidney Polycystic Kidneys Care Team Name Role Phone Fax Email Leny Mares RN Kidney Coordinator [phone] N/A Jyoti Cardoso Primary Case Investigator N/A N/A N/A Chaparro Holcomb MD Referring Physician [phone] N/A Rhea Harrington Drafter Landscape [phone] N/A N/A Events Pre-Transplant Referred: 01/11/2023 Evaluation began: 04/09/2023 Committee: 10/31/2023 UNOS qualified: 05/19/2022 Center waitlisted: 11/02/2023 Dialysis History Dialysis History Start End Type Comments Center 05/19/2022 In-center Hemodialysis [facility] Center Information Center Phone Fax Address [facility] [phone] [address] [facility] [address]
--- OUTSIDE RECORDS SUMMARY | 2024-12-09 21:46 | XMS_ITS | Referral Summary ---
Author Organization [facility] [address] Address [address] [place] [address] Care Team Providers Care Behavior Clinician Name Role Phone Libby Glass NP Primary Care Provider Chaparro Holcomb MD Unavailable [phone] Leny Mares RN Unavailable Encounters Date Type Department Care Team Description 12/03/2024 10:00 AM CDT - 12/03/2024 11:59 PM CDT Hospital Encounter [address] [id number] ESRD (end stage renal disease) (HCC) Discharge Disposition: Discharge to home or self care 11/03/2024 10:00 AM CDT - 11/03/2024 11:59 PM T Hospital Encounter [address] [address] ESRD (end stage renal disease) (HCC) Discharge Disposition: Discharge to home or self care 10/17/2024 Telephone [facility] Transplant Kidney [address] [facility] [address] [id number] [place] [address] Leny Mares, RN 10/16/2024 Telephone [facility] Transplant Kidney [address] [facility] [address] [id number] [place] [address] Leny Mares RN 10/15/2024 10:00 AM CDT - 10/15/2024 11:59 PM [place] [address] ESRD (end stage renal disease) ([facility]) Discharge Disposition: Discharge to home or self [...] next few days. Prescribed lidocaine patches at [facility]. Assessment & Plan (06/27/2024 4:28 PM RELIGIOUS HEALER): Unclear etiology for chest pain. Initial workup [...] to be hemolyzed) - can resume at [facility] Assessment & Plan (06/27/2024 4:01 PM RELIGIOUS HEALER): On home Bumex 2mg, nifedipine, Imdur, hydral [...] phoslo Assessment & Plan (06/27/2024 4:01 PM RELIGIOUS HEALER): On schedule as outpatient - 06/26 iHD completed - Local Dialysis Center [facility] [place]. - Nephrology ESRD Team following Resolved Problems [...] Tobacco: Never Tobacco Cessation:Counseling Given: Not Answered [facility] Utilities Answer Date Recorded In the past 12 months has e [employer], gas, oil, or water iPerceptions threatened to shut off services in your [...] often do you attend chur ch or adventism services? 1 to 4 times per year 06/13/2024 Do you belong to any clubs o r organizations such as baptist groups, unions, fraternal or athletic groups, or [...] place to sleep or slept in a custodial (including now)? No 06/12/2023 Housing Stability Vital Sign Answer Nikolai e Recorded In the last 12 months, was t here a time when you were not able to pay the mortgage or rent on time? No 06/13/2024 In the past 12 months, how m any times have you moved where you were living? 1 06/13/2024 At any time in the past 12 m [facility], were you homeless or living in a custodial (including now)? No 06/13/2024 Personal Safety Answer Date Recorded Have you ever been in or are you currently in a harmful physical or emotional relationship or is someone making you feel afraid or unsafe? Denies 08/15/2024 Sex and Gender Information Value Date Recorded Sex Assigned at Not on file Legal Sex Male 2:12 AM RELIGIOUS HEALER Gender Identity Not on file Sexual Orientation [...] HEPATITIS C ANTIBODY Routine 05/30/2023 12:42 PM RELIGIOUS HEALER End stage renal disease (HCC) COLONOSCOPY Routine 10/27/2022 10:35 AM CDT from Last 3 Months or Most Recently Relevant to Health Maintenance Results * HLA Antibody Screen by PRA or SAB per Schedule (Class I and Class II) (12/03/2024 10:00 AM CDT) Blood 12/03/2024 10:0 0 AM CDT Narrative HISTOTR[facility] - RELIGIOUS HEALER Sample received in lab. PRA Screen ordered. [...] method developed and validated by the [facility] HLA laboratory based on an FDA- approved IVD kit (LABScreen PRA, [employer], [place], [place]). Interpretive comments: The percentage of beads with MFI > 750 is reported, which indicates the percentage of donor population estimated to be incompatible with the patient tested. PRA > 0% is consistent with alloimmunization to HLA. Testing performed at the [facility], [address] [place] [address], 5th floor, [place], [address]. [place] # [id number]. Donna Paulson, Ph.D., Technical Project Lead, HLA Laboratory Lazaro Hernandez M.D., Ph.D., User Support Analyst, HLA Laboratory Tammy Estevez, Ph.D., CLIA User Support Analyst, [facility] Current methodology and interpretive comments last revised on 09/26/2017. us Wayne Abraham MD LAB BLOOD ORDERABLES Final Resu lt HISTOTRAC * HLA Antibody Screen by PRA or SAB per Schedule (Class I and Class II) (11/03/2024 10:00 AM CDT) Blood 11/03/2024 10:0 0 AM CDT Narrative HISTOTRAC - RELIGIOUS HEALER Sample received in lab and stored. No testing performed at this time. us Wayne Abraham MD LAB BLOOD ORDERABLES Final Resu lt HISTOTRAC * HLA Antibody Screen by PRA or SAB per Schedule (Class I and Class II) (10/15/2024 10:00 AM CDT) Blood 10/15/2024 10:0 0 AM CDT Narrative HISTOTRAC - RELIGIOUS HEALER Sample received in lab. PRA Screen ordered. [...] method developed and validated by the [facility] HLA laboratory based on an FDA- approved IVD kit (LABScreen PRA, [employer], [place], [place]). Interpretive comments: The percentage of beads with MFI > 750 is reported, which indicates the percentage of donor population estimated to be incompatible with the patient tested. PRA > 0% is consistent with alloimmunization to HLA. Testing performed at the [facility], [address] [place] [address], 5th floor, [place], [address]. CLIA # [id number]. Donna Taniguchi, Ph.D., Technical Project Lead, HLA Laboratory Lazaro Hernandez M.D., Ph.D., User Support Analyst, HLA Laboratory Tammy Estevez, Ph.D., ABIGAIL User Support Analyst, [facility] Current methodology and interpretive comments last revised on 09/26/2017. Wayne Abraham MD LAB BLOOD ORDERABLES Final Resu lt Performing Organization Address [facility] de Phone Number HISTOTRAC * PSA screen (01/09/2024 11:10 AM CDT) PSA 0.82 < OR = 4.00 ng/mL [facility] Comment: The total PSA value from this assay system is standardized against the WHO standard. The test result will be approximately 20% lower when compared to the equimolar-standardized total PSA ([place]). Comparison of serial PSA results should be interpreted with this fact in mind. This test was performed using the Siemens chemiluminescent method. Values obtained from different assay methods cannot be used interchangeably. PSA levels, regardless of value, should not be interpreted as absolute evidence of the presence or absence of disease. 01/09/2024 11:1 0 AM CDT 01/09/2024 11:11 AM CDT Libby Glass DIAMOND DIE POLISHER LAB BLOOD ORDERABLES Final Re sult Performing Organization Address [facility] de Phone Number [facility] [address] [place] [address] * Hepatitis C antibody Blood (05/30/2023 12:42 PM RELIGIOUS HEALER) Hep C Ab Nonreactive Nonreactive [facility] Comment:Antibodies to HCV no t detected. Does NOT exclude the possibility of recent exposure to HCV. Current interpretive data was last revised on 22 Blood 05/30/2023 12:4 2 PM RELIGIOUS HEALER 05/30/2023 1:22 PM RELIGIOUS HEALER Narrative [facility] - 05/30/2023 2:06 PM RELIGIOUS HEALER This lab is being obtained as part of a Kidney transplant evaluation, is time sensitive, and should only be drawn during the evaluation visit at [facility]. Leta Rudolph MD LAB MICROBIOLOGY - GENERAL ORDERABLES Final Result [facility] [place] [address] * Colonoscopy (10/27/2022 10:35 AM CDT) Anatomical Region Laterality Modality Other us Historical Provider ENDOSCOPY PROCEDURES Tori l Result from Last 3 Months or Most Recently Relevant to Health Maintenance Insurance IDPA [facility] MEDICARE ADVANTAGE [facility] MEDICARE ADVANTAGE [facility] MEDICARE ADVANTAGE IDPA Advance Directives For more information, please contact: [phone] * Full Code (Latest Code Status on File) Date Activated Date Inactivated Comments 08/15/2024 7:16 PM 08/16/2024 4:50 PM * Full Code Date Activated Date Inactivated Comments 06/25/2024 1:35 AM 06/27/2024 10:47 PM * Full Code Date Activated Date Inactivated Comments 10/17/2023 10:40 AM 10/19/2023 5:30 PM Care Teams Behavior Clinician Relationship Specialty Start Date End Date Libby Glass, DIAMOND DIE POLISHER [address] [facility] [address] [place] [address] PCP - General Internal Medicine 10/27/22 Chaparro Holcomb MD [address] [facility] [address] [place] [address] Referring Physician Nephrology 10/27/22 Leny Mraes, RN [address] [facility] [address] [place], [place] [id number] Human Resource Intern 02/15/23 Dental [facility] Dentist 08/23/23
[2024-12-09 22:14] LABS: Alanine Aminotransferase 20 U/L (6-50); Albumin Level 4.6 g/dL (3.5-5.1); Alkaline Phosphatase 50 U/L (38-126); Anion Gap 14 mmol/L (4-12); Aspartate Amino Transferase 27 U/L (17-59); Bilirubin,Total 0.4 mg/dL (0.2-1.3); Blood Urea Nitrogen 79 mg/dL (9-20); Calcium 10.4 mg/dL (8.4-10.2); Carbon Dioxide 19 mmol/L (22-30); Chloride 107 mmol/L (98-107); Glucose 101 mg/dL (65-110); Lipase 185 U/L (23-300); Potassium 5.4 mmol/L (3.4-5.0); Sodium 140 mmol/L (137-145); Total Protein 8.3 g/dL (6.3-8.2)
[2024-12-09 22:20] LABS: Estimated CRCL calculation 6 ml/min; Estimated Glomerular Filt Rate 4
[2024-12-09 22:28] LABS: Troponin I 0.042 ng/mL (0.000-0.034)
--- NOTE | 2024-12-09 22:48 | ED.CHESTPAIN ---
HPI - Chest Pain General Chief Complaint: Chest Pain Stated Complaint: SHORTNESS OF BREATH, CHEST DISCOMFORT Time Seen by Provider: 12/09/24 21:30 History of Present Illness HPI narrative: Patient is a 4-year-old male who presents to the emergency department this evening complaining of chest pain or shortness of breath. States that he feels like he is having a hard time catching his breath and feels tightness across his chest limiting his chest expansion. States that symptoms started today around 1430. Patient denies any cardiovascular history but he is an end-stage renal disease patient on hemodialysis Sunday, Sunday and Sunday. He states that his last session was on Sunday and he missed his that almazan on Sunday as he was not feeling good and did not go. Denies any additional symptoms or concerns at this time. Related Data Allergies Allergy/AdvReac Type Severity Reaction Status Date / Time No Known Allergies Allergy Verified 10/04/22 08:23 Review of Systems Review of Systems: All systems are reviewed and are negative unless stated otherwise in the HPI. [facility] Past Medical History Medical History Cardiomyopathy Acute systolic heart failure Acute diastolic CHF (congestive heart failure) Anemia of chronic disease Flash pulmonary edema Adult polycystic kidney disease Surgical History Surgical History No significant past surgical history Family History Family History Sibling Heart disease Fraternal twin brother had CABG X4. Sibling Cancer Sibling ESRD on dialysis Mother Cerebrovascular accident Old age of old age Father Heart disease around 60 y.o. of uncertain type of heart disease Social History Social History Social History: Negative for alcohol cigarettes or tobacco. 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 His brother Gavino romero is the poa. He has One child who is an adult daughter. He is . Code status full code Smoking status: Never smoker Second hand tobacco smoke exposure: No Alcohol intake: never Substance use: current Substance use type: does not use Lack of Transportation: No Lack of Food: Sometimes True Current Housing: I Have Housing Concerned About Future Housing: Decline to Answer Difficulty Paying Gas/Electric Bills: YES Difficulty Paying for Meds: YES Currently Unemployed: YES Education: Bachelor's Degree Difficulty w/ Childcare or Family Care: No Spiritual care concerns: No Exam Narrative: General: Alert, awake, afebrile, in no acute distress. HEENT: PERRL, no rhinorrhea, no post nasal drip, oropharynx clear. Neck: Trachea midline, no JVD, no lymphadenopathy. Cardiovascular: Regular rate and rhythm, no murmurs, rubs or gallops, no peripheral edema. Respiratory: Clear to auscultation bilaterally, tachypnea, no wheezing, no rhonchi, no rubs, no respiratory distress. Abdomen: Soft, nontender, nondistended, no rebound, no guarding, no peritoneal signs. Musculoskeletal: No joint swelling or deformity, normal muscle tone. Skin: No rashes or petechia, no signs of infection. Psychiatric: Alert and oriented, normal behavior and judgment for situation. Neurological: Alert and oriented to person, place, and time. Follows all commands. No focal deficits, speech is clear and fluent. Course Vital Signs Vital signs: Vital Signs Temperature 98.1 F 12/09/24 20:30 Pulse Rate 91 12/09/24 20:30 Respiratory Rate 22 H 12/09/24 20:30 Blood Pressure 139/93 H 12/09/24 20:30 Pulse Oximetry 100 12/09/24 20:30 Oxygen Delivery Room Air 12/09/24 20:30 Temperature 97.9 F 12/09/24 23:00 Pulse Rate 73 12/09/24 23:01 Respiratory Rate 16 12/09/24 23:01 Blood Pressure 149/101 H 12/09/24 23:00 Pulse Oximetry 97 12/09/24 23:01 Oxygen Delivery Room Air 12/09/24 21:40 MDM - Chest Pain MDM Narrative Medical decision making narrative: The patient was evaluated by myself in the emergency department. History is obtained from patient who is an independent historian and physical exam was performed. External medical records were reviewed at this time. IV was established and pertinent tests were ordered. EKG was obtained which revealed sinus rhythm rate of 92 beats per minute, no evidence of arrhythmia or acute ischemia. EKG was independently interpreted by me and is currently pending official cardiology read. Laboratory results obtained revealing a creatinine of 14.29, potassium 5.4, initial troponin 0.042 otherwise unremarkable. Imaging studies obtained included CXR which was independently interpreted by me revealing no acute cardiopulmonary process, which is pending final radiology interpretation. Differential diagnosis considerations include fluid overload, acute viral syndrome, infectious process such as pneumonia. Comorbidities impacting this visit include history of end-stage renal disease on HD, medical noncompliance. I have evaluated and discussed social determinants of health with the patient that could potentially impact subsequent diagnosis and treatment plans. On repeat assessment of the patient, reevaluation revealed that the patient is doing well and is in no acute distress. Patient symptoms have remained stable since he arrived to our emergency department. Repeat vital signs were all reviewed and noted to be stable. Differential diagnosis and treatment plan were discussed with the patient at bedside. Patient agrees with discussion and after shared medical decision making agrees with admission. All questions were answered to the patient's satisfaction. Case discussed with the on-call contact worker lithography Dr. Holcomb at 2145 and he accepted consultation. Case was discussed with the on-call hospitalist Dr. Chu at 2355 and she accepted admission. Lab Data 12/09/24 20:50 12/09/24 20:50 Labs: Lab Results 12/09/24 12/09/24 Range/Units 20:50 23:40 WBC 5.3 (4.5-10.0) K/mm3 RBC 3.41 L (4.6-6.20) M/mm3 Hgb 9.8 L (14.0-18.0) g/dL Hct 29.7 L (42.0-52.0) % MCV 87.1 (80-100) fl MCH 28.7 (26-34) pg MCHC 33.0 (32-36) g/dl RDW 14.6 H (11.5-14.5) % Plt Count 167 (150-375) k/mm3 MPV 10.2 (7.4-10.4) fl Immature Gran % (Auto) 0.2 (0-0.5) % Neut % (Auto) 69.1 (45.5-73.1) % Lymph % (Auto) 19.3 (18.3-44.2) % [place] % (Auto) 8.7 H (2.6-8.5) % Eos % (Auto) 2.3 (0-4.4) % Baso % (Auto) 0.4 (0.2-1.2) % Lymph # (Auto) 1.02 (0.9-3.2) K/mm3 [place] # (Auto) 0.5 (0.1-0.6) K/mm3 Eos # (Auto) 0.1 (0-0.3) K/mm3 Baso # (Auto) 0.0 (0.0-0.1) K/mm3 Abs Immat Gran (auto) 0.01 (0.00-0.031) K/mm3 Absolute Neuts (auto) 3.7 (1.3-6.7) K/mm3 Absolute Nucleated RBC 0.000 (0.0-0.012) K/mm3 Nucleated RBC % 0.0 (0.0-0.2) % PT 13.3 (11.1-14.7) Seconds INR 1.0 APTT 28.5 (22.3-36.8) Seconds Sodium 140 (137-145) mmol/L Potassium 5.4 H (3.4-5.0) mmol/L Chloride 107 (98-107) mmol/L Carbon Dioxide 19 L (22-30) mmol/L Anion Gap 14 H (4-12) mmol/L BUN 79 H (9-20) mg/dL Creatinine 14.29 H (0.7-1.3) mg/dL Estim Creat Clear Calc 6 ml/min Estimated GFR 4 L (59 - ) Glucose 101 (65-110) mg/dL Calcium 10.4 H (8.4-10.2) mg/dL Total Bilirubin 0.4 (0.2-1.3) mg/dL AST 27 (17-59) U/L ALT 20 (6-50) U/L Alkaline Phosphatase 50 (38-126) U/L Troponin I 0.042 H* 0.046 H* (0.000-0.034) ng/mL Total Protein 8.3 H (6.3-8.2) g/dL Albumin 4.6 (3.5-5.1) g/dL Lipase 185 (23-300) U/L Discharge Plan Discharge Clinical Impression: Chest pain, SOB (shortness of breath), ESRD (end stage renal disease) on dialysis, Medical non-compliance, Elevated troponin Patient Disposition: Still a Patient Condition: Improved Patient Language: Zambian Prescriptions: No Action isosorbide mononitrate 30 mg Tablet Extended Release 24 Hr 30 mg PO QAM Qty: 30 1RF calcium acetate(phosphat bind) 667 mg Tablet 667 mg PO TID Qty: 90 1RF aspirin 81 mg Tablet,Delayed Release (Dr/Ec) 81 mg PO QAM Qty: 30 1RF metoprolol tartrate 75 mg tablet 75 mg PO Q12HR Qty: 60 1RF bumetanide 2 mg tablet 2 mg PO DAILY Qty: 60 1RF hydrocodone-acetaminophen 5-325 mg tablet 1 tablet PO Q8H PRN (Reason: pain) Qty: 7 0RF hydralazine 100 mg tablet 100 mg PO TID Qty: 270 3RF Follow-up/Referrals: UNKNOWN,DOCTOR [Primary Care Provider] - Time of Disposition: 22:52
--- NOTE | 2024-12-09 23:32 | ECG_ITS ---
Test Date: 2024-12-09 23:42:14 Measurements Intervals Sacul Rate: 85 P: 53 WI: 166 QRS: -21 QRSD: 89 T: 7 QT: 359 QTc: 428 Interpretive Statements SINUS RHYTHM POSSIBLE LEFT ATRIAL ENLARGEMENT [-0.1mV P-WAVE IN V1/V2] BORDERLINE LEFT AXIS DEVIATION [QRS AXIS < -20] POSSIBLE LEFT VENTRICULAR HYPERTROPHY [VOLTAGE CRITERIA PLUS LAE OR QRS WIDENING] BORDERLINE ECG Compared to ECG 12/09/2024 20:36:01 BORDERLINE LEFT VENTRICULAR HYPERTROPHYVOLTAGE IS NOW SEEN Electronically Signed On 12-10-2024 07:50:39 CDT by Ronal Welsh M.D.
[2024-12-10] VITALS (36 sets, daily range): BP systolic 149–178; BP diastolic 86–120; PULSE 81–104; RESP 16–29; TEMP 36.1–37.6; O2SAT 95–100; BMI 25.2
[2024-12-10 00:13] LABS: Troponin I 0.046 ng/mL (0.000-0.034)
[2024-12-10 02:55] LABS: Hematocrit 27.2 % (42.0-52.0); Hemoglobin 8.9 g/dL (14.0-18.0); Immature Granulocyte Percent A 0.0 % (0-0.5); Lymphocytes Absolute Auto 1.01 K/mm3 (0.9-3.2); Mean Corpuscular HGB Conc 32.7 g/dl (32-36); Mean Corpuscular Hemoglobin 28.9 pg (26-34); Mean Corpuscular Volume 88.3 fl (80-100); Nucleated Red Blood Cells Absolute Auto 0.000 K/mm3 (0.0-0.012); Nucleated Red Blood Cells Perc 0.0 % (0.0-0.2); Platelet Count Result 134 k/mm3 (150-375); Red Blood Count 3.08 M/mm3 (4.6-6.20); White Blood Count 4.3 K/mm3 (4.5-10.0)
[2024-12-10 03:16] LABS: Alanine Aminotransferase 17 U/L (6-50); Albumin Level 4.0 g/dL (3.5-5.1); Alkaline Phosphatase 45 U/L (38-126); Anion Gap 12 mmol/L (4-12); Aspartate Amino Transferase 24 U/L (17-59); Bilirubin,Total 0.3 mg/dL (0.2-1.3); Blood Urea Nitrogen 78 mg/dL (9-20); Calcium 9.5 mg/dL (8.4-10.2); Carbon Dioxide 21 mmol/L (22-30); Chloride 107 mmol/L (98-107); Glucose 122 mg/dL (65-110); Magnesium 2.3 mg/dL (1.6-2.3); Potassium 5.4 mmol/L (3.4-5.0); Sodium 140 mmol/L (137-145); Total Protein 7.1 g/dL (6.3-8.2)
[2024-12-10 03:21] LABS: Estimated CRCL calculation 6 ml/min; Estimated Glomerular Filt Rate 3
[2024-12-10 03:41] LABS: Troponin I 0.048 ng/mL (0.000-0.034)
[2024-12-10 04:12] LABS: Hepatitis B Surface Antigen Negative (Negative)
[2024-12-10 04:29] LABS: Hepatitis B Surface Anti Res Negative
--- NOTE | 2024-12-10 08:18 | P.HP_ITS ---
H&P: HPI History of Present Illness Date/Time: 12/10/24 08:18 Chief Complaint: Shortness breath and chest pain Narrative: Patient is a 4-year-old male with history of end-stage renal disease on hemodialysis Sunday, Sunday and Sunday hypertension, hyperlipidemia, systolic heart failure EF 40-45% on echocardiogram May 17, 2022 present ED with a chief complaint of shortness breath and chest pain. Patient has been having progressive shortness breath since yesterday, and also has chest pain started about 2:30 p.m. yesterday.. Patient missed hemodialysis on Sunday because he was not not feeling good. Patient denies lightheadedness, vision change, abdomen pain, nausea vomiting diarrhea dysuria Upon arrival to ED, patient has uncontrolled blood pressure 178/90, afebrile, Lab showed anemia hemoglobin 8.9 on the baseline, Chemistry showed potassium 5.4, BUN 78 creatinine 14.69, bicarbonate 21 Troponin 0.46 initially, 2nd 0.048, EKG shows sinus rhythm no specific ST or T- wave changes, Review of Systems Review of Systems: RS negative except above PMFSH Past Medical History Medical History Cardiomyopathy Acute systolic heart failure Acute diastolic CHF (congestive heart failure) Anemia of chronic disease Flash pulmonary edema Adult polycystic kidney disease Surgical History Surgical History No significant past surgical history Family History Family History (Updated 12/10/24 @ 03:22 by Irving Fleming RN) Sibling Heart disease Fraternal twin brother had CABG X4. History of quadruple bypass Sibling Cancer Sibling ESRD on dialysis Mother Old age of old age Cerebrovascular accident Father Heart disease around 60 y.o. of uncertain type of heart disease Social History Social History Social History: Negative for alcohol cigarettes or tobacco. 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 His brother aGvino romero is the poa. He has One child who is an adult daughter. He is . Code status full code Smoking status: Never smoker Second hand tobacco smoke exposure: No Alcohol intake: never Substance use: never Substance use type: does not use Do You Feel Safe in your Home?: Yes Lack of Transportation: YES Lack of Food: Never True Current Housing: I Have Housing Concerned About Future Housing: No Difficulty Paying Gas/Electric Bills: No Difficulty Paying for Meds: No Currently Unemployed: No Education: Master's Degree or Higher Difficulty w/ Childcare or Family Care: No Spiritual care concerns: No Meds Home Medications and Allergies Home Medications ?Medication ?Instructions ?Recorded ?Confirmed ?Type aspirin 81 mg tablet,delayed 81 mg PO QAM #30 tabs 05/27/22 12/10/24 Rx release bumetanide 2 mg tablet 2 mg PO DAILY #60 tabs 05/27/22 12/10/24 Rx calcium acetate(phosphat bind) 667 667 mg PO TID #90 tabs 05/27/22 12/10/24 Rx mg tablet hydralazine 100 mg tablet 100 mg PO TID #270 tabs 03/12/24 12/10/24 Rx amino acids-protein hydrolysate 16 30 ml PO DAILY 12/10/24 12/10/24 History gram-100 kcal/30 mL oral liquid (Liquacel) cholecalciferol (vitamin D3) 250 250 mcg PO DAILY 12/10/24 12/10/24 History mcg (10,000 unit) capsule isosorbide mononitrate 30 mg 30 mg PO TID 12/10/24 12/10/24 History tablet,extended release 24 hr nifedipine 90 mg tablet,extended 90 mg PO DAILY 12/10/24 12/10/24 History release 24 hr omega [id number]-fish oil 900 1 cap PO DAILY 12/10/24 12/10/24 History mg-1,400 mg capsule,delayed release Allergies Allergy/AdvReac Type Severity Reaction Status Date / Time No Known Allergies Allergy Verified 12/10/24 01:52 Vital Signs Vital Signs - 24 hr 12/09/24 20:30 12/09/24 21:33 12/09/24 21:40 Temperature 98.1 F Pulse Rate 91 91 Respiratory Rate 22 H 23 H Blood Pressure 139/93 H Pulse Oximetry 100 100 100 Oxygen Delivery Room Air Room Air 12/09/24 21:43 12/09/24 21:45 12/09/24 21:46 Temperature Pulse Rate 88 86 88 Respiratory Rate 19 24 H Blood Pressure 140/96 H Pulse Oximetry 99 99 Oxygen Delivery 12/09/24 22:24 12/09/24 22:30 12/09/24 22:31 Temperature Pulse Rate 82 86 88 Respiratory Rate 21 H 33 H 25 H Blood Pressure 152/91 H Pulse Oximetry 97 96 100 Oxygen Delivery 12/09/24 22:59 12/09/24 23:00 12/09/24 23:01 Temperature 97.9 F Pulse Rate 79 85 73 Respiratory Rate 17 18 16 Blood Pressure 149/101 H Pulse Oximetry 99 96 97 Oxygen Delivery 12/09/24 23:54 12/10/24 00:00 12/10/24 00:23 Temperature Pulse Rate 92 96 93 Respiratory Rate 21 H 29 H 21 H Blood Pressure Pulse Oximetry 97 Oxygen Delivery 12/10/24 00:28 12/10/24 00:30 12/10/24 00:31 Temperature Pulse Rate 95 97 Respiratory Rate 22 H 23 H Blood Pressure 155/102 H 154/96 H Pulse Oximetry 96 97 Oxygen Delivery 12/10/24 00:45 12/10/24 00:46 12/10/24 01:25 Temperature 97.6 F Pulse Rate 93 93 93 Respiratory Rate 19 19 19 Blood Pressure 156/93 H 156/93 H Pulse Oximetry 95 97 95 Oxygen Delivery 12/10/24 02:06 12/10/24 03:43 12/10/24 04:00 Temperature 97.3 F L Pulse Rate 93 88 Respiratory Rate 16 Blood Pressure 158/96 H Pulse Oximetry 99 Oxygen Delivery Room Air 12/10/24 06:00 Temperature 97.5 F L Pulse Rate 89 Respiratory Rate 17 Blood Pressure 178/90 H Pulse Oximetry 98 Oxygen Delivery Exam Narrative: GENERAL: Pleasant, in no acute distress. Well-nourished. - EYES: EOMI. Anicteric. - HENT: Moist mucous membranes. - LUNGS: Coarse breath sound bilaterall y. - CARDIOVASCULAR: Regular rate and rhyth m. No murmur. No JVD. - ABDOMEN: Soft, non-tender and non-dist ended. No palpable masses. - EXTREMITIES: No edema. Peripheral puls es 2+. Non-tender. - NEUROLOGIC: No focal neurological defi cits. CN II-XII grossly intact. - PSYCHIATRIC: Awake, Alert and oriented x 3. Appropriate mood and affect. - SKIN: No rashes or lesions. Warm. - LYMPH: No cervical lymphadenopathy. H&P: Results Labs Labs: Short CBC 12/09/24 12/10/24 Range/Units 20:50 02:48 WBC 5.3 4.3 L (4.5-10.0) K/mm3 Hgb 9.8 L 8.9 L (14.0-18.0) g/dL Hct 29.7 L 27.2 L (42.0-52.0) % Plt Count 167 134 L (150-375) k/mm3 BMP 12/09/24 12/10/24 20:50 02:48 Sodium 140 140 Potassium 5.4 H 5.4 H Chloride 107 107 Carbon Dioxide 19 L 21 L BUN 79 H 78 H Creatinine 14.29 H 14.69 H Glucose 101 122 H Calcium 10.4 H 9.5 Cardiac Enzymes 12/09/24 12/09/24 12/10/24 Range/Units 20:50 23:40 02:48 Troponin I 0.042 H* 0.046 H* 0.048 H* (0.000-0.034) ng/mL Liver Function 12/09/24 12/10/24 Range/Units 20:50 02:48 Total Bilirubin 0.4 0.3 (0.2-1.3) mg/dL AST 27 24 (17-59) U/L ALT 20 17 (6-50) U/L Alkaline Phosphatase 50 45 (38-126) U/L Albumin 4.6 4.0 (3.5-5.1) g/dL Assessment and Plan Assessment and plan (1) Acute on chronic combined systolic and diastolic heart failure: Code(s): I50.43 - Acute on chronic combined systolic (congestive) and diastolic (congestive) heart failure Status: Acute (2) Hypertensive urgency: Code(s): I16.0 - Hypertensive urgency Status: Acute (3) Elevated troponin: Code(s): R77.8 - Other specified abnormalities of plasma proteins Status: Acute (4) Chest pain: Code(s): R07.9 - Chest pain, unspecified Status: Acute (5) ESRD (end stage renal disease) on dialysis: Code(s): N18.6 - End stage renal disease; Z99.2 - Dependence on renal dialysis Status: Acute (6) Chronic anemia: Code(s): D64.9 - Anemia, unspecified Status: Acute Plan Chest pain Elevated troponin x2 EKG shows sinus rhythm no specific ST T-wave changes Possible demand ischemia due to acute heart failure, also possible due to NSTEMI Continue aspirin 81 mg b.i.d. p.o., Imdur 30 mg daily p.o. nitroglycerin sublingual p.r.n. Pending echocardiogram licensed and certified midwife consult plumbing assembler installer for evaluation treatment Acute on chronic combined heart failure Patient shortness breath, x-ray shows pulmonary congestion Resulting from fluid overload due to missing dialysis Provide Lasix 100 mg IV push once, Consult vocational nurse lvn for dialysis Hypertension urgency Continue hydralazine 100 mg t.i.d. p.o. Nifedipine 90 mg daily p.o. Labetalol IV p.r.n. Patient fluid overload 80 Consult vocational nurse lvn Chronic anemia No obvious bleeding Resulting from CKD Management per vocational nurse lvn Hospitalist MIPS Advance Care Plan I have confirmed that the patient's Advanced Care Plan is present, code status is documented, or surrogate decision maker is listed in patient medical record.: Yes Medication Reconciliation I have utilized all available resources to obtain, update and review the patients current medications (includes all prescriptions, OTC, herbals, cannabis, and nutritional supplements).: Yes
--- NOTE | 2024-12-10 08:45 | ECHO_ITS ---
Patient Info Name: Piter Donahue Age: 58 years : 1965 Gender: Male Ht: 73 in Wt: 197 lbs BSA: 2.15 m2 HR: 99 bpm BP: 178 / 90 mmHg Technical Quality: Good Exam Date: 12/10/2024 2:53 PM Patient Status: I Admit Date: 12/10/2024 Exam Type: CA echo doppler color flow Complete two-dimensional, color flow and Doppler transthoracic echocardiogram is performed. Staff Referring Physician: Zev Lua Tobacco Flavorer: Clair Tang Attending Provider: Kelsy Chu DO Summary 1. Complete two-dimensional, color flow and Doppler transthoracic echocardiogram is performed. 2. There is normal biventricular size and systolic function. 3. There is severe concentric left ventricular hypertrophy. 4. There is mild to moderate aortic regurgitation. 5. The aortic root at the level of the sinus of Valsalva is dilated measuring 4.3 cm in diameter. Left Ventricle The left ventricle in size and systolic function. There is severe concentric left ventricular hypertrophy. The left ventricular ejection fraction is visually estimated to be 65-70%. Right Ventricle The right ventricle is normal in size and systolic function. Left Atria The left atrium is mildly dilated. Right Atria The right atrium is mildly dilated. Atrial Septum The atrial septum is not well visualized. Aortic Valve The aortic valve is trileaflet and thickened. There is no aortic stenosis. There is mild-moderate aortic regurgitation. Pulmonic Valve The pulmonic valve is normal. There is trace pulmonic valve regurgitation. Mitral Valve The mitral valve leaflets are thickened. There is no mitral stenosis. There is no mitral regurgitation. Tricuspid Valve The tricuspid valve is normal. There is trace tricuspid regurgitation. There is insufficient tricuspid regurgitation to estimate the pulmonary pressures. Pericardium/Pleural Pericardium is normal in appearance with no evidence for significant pericardial effusion. Inferior Vena Cava Inferior vena cava is not well visualized. Aorta The aortic root at the level of the sinus of Valsalva is dilated measuring 4.3 cm in diameter. Left Ventricular Outflow Tract Name Value Normal LVOT 2D LVOT Diameter 2.2 cm LVOT Doppler LVOT Peak Velocity 211 cm/s LVOT Peak Gradient 17 mmHg LVOT Mean Gradient 7 mmHg LVOT VTI 41 cm LVOT VTI/AV VTI Ratio 0.9 LVOT Stroke Volume 159 ml LVOT CO 11.3 l/min LVOT CI 5.2 l/min/m2 Pulmonic Valve Name Value Normal RVOT Doppler RVOT Peak Velocity 160 cm/s RVOT Peak Gradient 10 mmHg PV Doppler PV Peak Velocity 168 cm/s PV Peak Gradient 11 mmHg Mitral Valve Name Value Normal MV Diastolic Function MV E Peak Velocity 65 cm/s MV A Peak Velocity 124 cm/s MV E/A 0.5 MV Decel Time (PW) 178 ms MV Annular TDI MV E/e' (Septal) 9.3 MV E/e' (Lateral) 7.1 MV E/e' (Average) 8.2 Tricuspid Valve Name Value Normal TV Regurgitation Doppler TR Peak Velocity 325 cm/s TR Peak Gradient 42 mmHg Aortic Valve Name Value Normal AV Doppler AV Peak Velocity 264 cm/s AV Peak Gradient 24 mmHg AV Mean Gradient 10 mmHg AV VTI 44 cm AV Area (Cont Eq VTI) 3.6 cm2 >=3.0 AV Area (Cont Eq Moses) 3.1 cm2 AV DI (Moses) 0.80 AV Regurgitation 2D LVOT Area 3.9 cm2 Ventricles Name Value Normal LV Dimensions 2D/MM IVS Diastolic Thickness (2D) 1.5 cm 0.6-1.0 LVID Diastole (2D) 5.3 cm 4.2-5.8 LVIW Diastolic Thickness (2D) 1.6 cm 0.6-1.0 LVID Systole (2D) 3.0 cm 2.5-4.0 LVOT Diameter 2.2 cm LV Mass (2D Cubed) 359.77 g 88.00-224.00 LV Mass Index (2D Cubed) 167 g/m2 49-115 Relative Wall Thickness (2D) 0.61 <=0.42 LV Fractional Shortening/Ejection Fraction 2D/MM LV Fractional Shortening (2D) 43 % 25-43 LV EF (2D Teichholz) 73 % LV Diastolic Volume (4C MOD) 187 ml LV EF (4C MOD) 67 % LV Diastolic Volume (2C MOD) 216 ml LV EF (2C MOD) 71 % LV Diastolic Volume (BP MOD) 207 ml 62-150 LV Diastolic Volume Index (BP MOD) 96 ml/m2 34-74 LV Systolic Volume (BP MOD) 67 ml 21-61 LV Systolic Volume Index (BP MOD) 31 ml/m2 11-31 LV EF (BP MOD) 68 % 52-72 LV Diastolic Length (4C) 11.4 cm LV Systolic Length (4C) 9.8 cm LV Stroke Volume (4C MOD) 125 ml RV Dimensions 2D/MM TAPSE 2.3 cm >=1.7 Atria Name Value Normal LA Dimensions LA Volume (4C A-L) 94 ml LA Volume (BP A-L) 89 ml RA Dimensions RA Systolic Major [place] Length (4C) 7.9 cm 2.1-2.7 RA Area (4C) 20.5 cm2 <=18.0 Report Signatures Amended by Senthil Reynolds on 12/11/2024 11:23 AM
[2024-12-10 09:37] LABS: MRSA (PCR) NOT DETECTED (NOT DETECTE)
[2024-12-10 09:43] LABS: Troponin I 0.043 ng/mL (0.000-0.034)
--- NOTE | 2024-12-10 10:20 | PM.CNNEP ---
Assessment and Plan Assessment and plan (1) End stage renal disease: Code(s): N18.6 - End stage renal disease Status: Chronic Assessment and Plan: HD today continue Sun/Sun/Sunday dialysis schedule while hospitalized follow electrolytes, volume status, and clearance outpatient dialysis unit = [facility] (2) Chest pain: Code(s): R07.9 - Chest pain, unspecified Status: Acute Assessment and Plan: troponin trend and EKG noted Cardiology consulted continue supportive therapy (3) SOB (shortness of breath): Code(s): R06.02 - Shortness of breath Status: Acute Assessment and Plan: related to chest discomfort(?) imaging without PVC or pulmonary edema follow respiratory status following dialysis no evidence of hypoxia continue supportive therapy (4) Hypertension: Code(s): I10 - Essential (primary) hypertension Status: Chronic Assessment and Plan: quite elevated on admission resume home medications fluid removal with HD may help follow trend of hemodynamics (5) Anemia: Code(s): D64.9 - Anemia, unspecified Status: Chronic Assessment and Plan: due to ESRD Epogen with HD follow trend of H/H (6) Polycystic kidney disease: Code(s): Q61.3 - Polycystic kidney, unspecified Status: Chronic Assessment and Plan: known diagnosis etiology of ESRD I will continue to follow the patient with you while he remains hospitalized and make further recommendations as deemed necessary. Thank you for allowing me to participate in the care of this patient. History of Present Illness Reason for Consult Consult date: 12/10/24 Reason for consult: end stage renal disease Chief Complaint Chief complaint: ESRD HD, elevated trop, CP History of Present Illness Narrative: The patient is a 58 year-old male with past medical history as outlined below who presented to [facility] ER with shortness of breath and chest pain. Patient reports progressive shortness of breath since the day before admission. He reports that chest pain started around 2:30 p.m. yesterday. The pain is located across the center. He describes this like a pressure which was of intensity 7/10 at onset and has been off and on since then with current intensity of 6/10. No radiation of pain to neck, arm, jaw, or back. He states that nitro helped his pain. He states that he had similar shortness of breath and chest pain back in 2021 when he had a full cardiac workup. He takes he had a cardiac catheterization at [facility] and was told that he did not have any significant CAD. He denies any dizziness, lightheadedness, leg swelling, recent weight gain, presyncope, syncope, fever, chills, nausea, emesis, abdominal pain, headache. Workup and evaluation emergency room demonstrated the patient be hemodynamically stable if not a bit hypertensive but afebrile. Routine blood work was significant for his chemistry labs consistent with his known history of end-stage renal disease, a CBC that was remarkable for a mildly elevated white blood cell count and relative anemia and initial troponin 0.046 which trended down to 0.036. His EKG was normal sinus rhythm with T-wave inversions in lead 3. He was subsequently admitted to the hospital for further evaluation and therapy. Renal consultation was requested due to his end-stage renal disease. The patient is somewhat familiar to me as I used to take care of his outpatient dialysis needs only lived in this area. At that time, he was on a Sunday dialysis schedule at [facility] cylinder my care. He then recently moved to [place] and transition his outpatient dialysis to [facility] on the care of Dr. Deniz De La Paz. He does a Sunday, Sunday, Sunday dialysis schedule at that dialysis clinic. Unfortunately, given his symptoms as mentioned above, he did not go to dialysis on Sunday. Currently, at the time my evaluation, he is receiving dialysis and appears to be tolerating it reasonably well (seen on HD at 10:10am). Review of Systems Review of Systems: As per HPI. [facility] Past Medical History Medical History Cardiomyopathy Acute systolic heart failure Acute diastolic CHF (congestive heart failure) Anemia of chronic disease Flash pulmonary edema Adult polycystic kidney disease Surgical History Surgical History No significant past surgical history Family History Family History (Updated 12/10/24 @ 03:22 by Irving Fleming RN) Sibling Heart disease Fraternal twin brother had CABG X4. History of quadruple bypass Sibling Cancer Sibling ESRD on dialysis Mother Old age of old age Cerebrovascular accident Father Heart disease around 60 y.o. of uncertain type of heart disease Social History Social History Social History: Negative for alcohol cigarettes or tobacco. 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 His brother Gavino romero is the poa. He has One child who is an adult daughter. He is . Code status full code Smoking status: Never smoker Second hand tobacco smoke exposure: No Alcohol intake: never Substance use: never Substance use type: does not use Do You Feel Safe in your Home?: Yes Lack of Transportation: YES Lack of Food: Never True Current Housing: I Have Housing Concerned About Future Housing: No Difficulty Paying Gas/Electric Bills: No Difficulty Paying for Meds: No Currently Unemployed: No Education: Master's Degree or Higher Difficulty w/ Childcare or Family Care: No Spiritual care concerns: No Meds Home Medications and Allergies Home Medications ?Medication ?Instructions ?Recorded ?Confirmed ?Type aspirin 81 mg tablet,delayed 81 mg PO QAM #30 tabs 05/27/22 12/10/24 Rx release bumetanide 2 mg tablet 2 mg PO DAILY #60 tabs 05/27/22 12/10/24 Rx calcium acetate(phosphat bind) 667 667 mg PO TID #90 tabs 05/27/22 12/10/24 Rx mg tablet hydralazine 100 mg tablet 100 mg PO TID #270 tabs 03/12/24 12/10/24 Rx amino acids-protein hydrolysate 16 30 ml PO DAILY 12/10/24 12/10/24 History gram-100 kcal/30 mL oral liquid (Liquacel) cholecalciferol (vitamin D3) 250 250 mcg PO DAILY 12/10/24 12/10/24 History mcg (10,000 unit) capsule isosorbide mononitrate 30 mg 30 mg PO TID 12/10/24 12/10/24 History tablet,extended release 24 hr nifedipine 90 mg tablet,extended 90 mg PO DAILY 12/10/24 12/10/24 History release 24 hr omega 8-jbs-fvm-fish oil 900 1 cap PO DAILY 12/10/24 12/10/24 History mg-1,400 mg capsule,delayed release Allergies Allergy/AdvReac Type Severity Reaction Status Date / Time No Known Allergies Allergy Verified 12/10/24 01:52 Vital Signs Vital Signs Temp Pulse Resp BP Pulse Ox O2 Del Method 12/10/24 10:15 86 163/93 H 12/10/24 10:00 86 165/101 H 12/10/24 09:38 92 167/97 H 12/10/24 09:30 98.1 F 89 16 176/104 H 100 12/10/24 06:00 97.5 F L 89 17 178/90 H 98 12/10/24 04:00 88 12/10/24 03:43 Room Air 12/10/24 02:06 97.3 F L 93 16 158/96 H 99 12/10/24 01:25 97.6 F 93 19 156/93 H 95 12/10/24 00:46 93 19 97 12/10/24 00:45 93 19 156/93 H 95 12/10/24 00:31 97 23 H 97 12/10/24 00:30 95 22 H 154/96 H 96 12/10/24 00:28 155/102 H 12/10/24 00:23 93 21 H 97 12/10/24 00:00 96 29 H 12/09/24 23:54 92 21 H 12/09/24 23:01 73 16 97 12/09/24 23:00 97.9 F 85 18 149/101 H 96 12/09/24 22:59 79 17 99 12/09/24 22:31 88 25 H 100 12/09/24 22:30 86 33 H 152/91 H 96 12/09/24 22:24 82 21 H 97 12/09/24 21:46 88 24 H 140/96 H 99 12/09/24 21:45 86 19 99 12/09/24 21:43 88 12/09/24 21:40 100 Room Air 12/09/24 21:33 91 23 H 100 12/09/24 20:30 98.1 F 91 22 H 139/93 H 100 Room Air Exam Narrative: GENERAL APPEARANCE: well developed well nourished male in no acute distress HEENT: normocephalic, atraumatic, normal conjunctiva and sclera, nares patient NECK: no lymphadenopathy, thyromegaly, or JVD MOUTH: normal lips, teeth, and gums CARDIOVASCULAR: RRR, normal S1 and S2, no rub RESPIRATORY: coarse breath sounds ABDOMEN: soft, nontender, nondistended, positive bowel sounds present EXTREMITIES: no evidence of cyanosis, clubbing, or edema NEUROLOGICAL: alert and oriented x 3; CN II - XII intact bilaterally; no focal deficits noted Results Lab Results 12/17/24 09:00 12/17/24 09:00 Lab results: Most recent lab results Calcium 9.5 mg/dL (8.4-10.2) 12/10/24 02:48 Phosphorus 3.9 mg/dL (2.5-4.5) 12/10/24 02:48 Magnesium 2.3 mg/dL (1.6-2.3) 12/10/24 02:48
[2024-12-10 10:31] LABS: Cholesterol 165 mg/dL (0-200); HDL Direct 62 mg/dL; Triglycerides 60 mg/dL (<150)
[2024-12-10] MEDS: EPOETIN ALFA-EPBX 10,000 UNITS/ML VIAL 10000 UNITS IV PUSH (11:39)
[2024-12-10] MEDS: SODIUM CHLORIDE 0.9% IV 1,000 ML 999 ML IV CONT (11:40)
[2024-12-10 12:56] LABS: Troponin I 0.036 ng/mL (0.000-0.034)
[2024-12-10] MEDS: FUROSEMIDE INJ 40 MG/4 ML VIAL 100 MG IV PUSH (14:32)
[2024-12-10] MEDS: BUMETANIDE 1 MG TABLET 2 MG PO (14:33)
[2024-12-10] MEDS: ASPIRIN 81 MG ENTERIC TABLET PO (14:33)
--- NOTE | 2024-12-10 17:11 | PM.CNCAR ---
Assessment and Plan Assessment and plan (1) Acute on chronic combined systolic and diastolic heart failure: Code(s): I50.43 - Acute on chronic combined systolic (congestive) and diastolic (congestive) heart failure Status: Acute (2) Hypertensive urgency: Code(s): I16.0 - Hypertensive urgency Status: Acute (3) NSTEMI (non-ST elevated myocardial infarction): Code(s): I21.4 - Non-ST elevation (NSTEMI) myocardial infarction Status: Acute Plan Acute on chronic systolic and diastolic heart failure secondary to missed dialysis-elevated BNP Hypertension-poorly controlled with SBP in the 170 NSTEMI-ongoing chest pain ESRD on HD with missed dialysis on Sunday-he underwent dialysis today Plan: -Troponin is elevated and trended down. He continues to have chest pain that comes and goes of intensity 4/10. Chest pain relieved with nitro He had a negative stress test in 2021 and states he had a catheterization at [facility] which was negative for any obstructive CAD. It has been 3 years since his last catheterization and he is at high risk for CAD given renal disease, male sex, hypertension. Recommend cardiac catheterization for further evaluation of his coronaries given ongoing chest. Discussed the risks and benefits of cardiac catheterization and patient is willing to proceed. Keep NPO at midnight -Start heparin drip -Continue aspirin 81 mg daily -Add statin -Check FLP -Blood pressure control with Imdur, hydralazine, nifedipine -Add metoprolol 12.5 mg b.i.d. -TTE -Check and replace electrolytes to keep K greater than 4 and magnesium greater than 2 -Monitor on telemetry History of Present Illness History of Present Illness Consult date/time: 12/10/24 17:11 Reason For Visit: ESRD HD, elevated trop, CP Narrative: 58-year-old male with history of systolic heart failure (LVEF 40-45% by TTE in 05/2022), hypertension, hyperlipidemia, anemia of chronic disease, end-stage renal disease on HD presents with chief complaints of shortness of breath and chest pain. Patient reports progressive shortness of breath since yesterday. He reports that chest pain started around 2:30 p.m. yesterday. The pain is located across the center. He describes this like a pressure which was of intensity 7/10 at onset and has been off and on since then with current intensity of 6/10. No radiation of pain to neck, arm, jaw, or back. He states that nitro helped his pain. He states that he had similar shortness of breath and chest pain back in 2021 when he had a full cardiac workup. He takes he had a cardiac catheterization at [facility] and was told that he did not have any significant coronary blockages. He states that he missed his hemodialysis session on Sunday because he was not feeling good. He then tried on Sunday to schedule himself for Sunday but due to his symptoms he presented to the ER. He denies any dizziness, lightheadedness, leg swelling, recent weight gain, presyncope, syncope, fever, chills, nausea, emesis, abdominal pain, headache. No recent sick contacts. Blood pressure was noted to be high at 170 8/90 mm Hg upon arrival. Troponin is elevated to 0.046 and trended down to 0.036. EKG shows sinus rhythm with T-wave inversion in lead 3. Cardiology is consulted for further recommendations. Workup: Hemoglobin: 8.9 Creatinine: 14.69 Potassium: 5.4 Troponin: 0.046, 0.048 , 0.043, 0.036 NT proBNP: 13,100 EKG: Sinus rhythm, no ST elevations or depressions, T-wave inversion in lead 3 Chest x-ray: No acute cardiopulmonary pathology Prior cardiac workup: TTE 2021: Moderate global hypokinesis of LV with ejection fraction of 40-45%, mild AR, mild MR, mild TR, mild pulmonary hypertension with PASP of 41 mm Hg, dilated sinus of Valsalva 4.5 cm Stress test Lexiscan in 2021: IMPRESSION: 1. No definite ischemia or infarct. Increased activity below the diaphragm decreases sensitivity and specificity in the inferior wall. 2. Normal left ventricular ejection fraction measuring 51%. Review of Systems Review of Systems: A complete review of systems was performed and negative other than those mentioned HPI PMFSH Past Medical History Medical History Cardiomyopathy Acute systolic heart failure Acute diastolic CHF (congestive heart failure) Anemia of chronic disease Flash pulmonary edema Adult polycystic kidney disease Surgical History Surgical History No significant past surgical history Family History Family History (Updated 12/10/24 @ 03:22 by Irving Fleming RN) Sibling Heart disease Fraternal twin brother had CABG X4. History of quadruple bypass Sibling Cancer Sibling ESRD on dialysis Mother Old age of old age Cerebrovascular accident Father Heart disease around 60 y.o. of uncertain type of heart disease Social History Social History Social History: Negative for alcohol cigarettes or tobacco. 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 His brother Gavino romero is the poa. He has One child who is an adult daughter. He is . Code status full code Smoking status: Never smoker Second hand tobacco smoke exposure: No Alcohol intake: never Substance use: never Substance use type: does not use Do You Feel Safe in your Home?: Yes Lack of Transportation: YES Lack of Food: Never True Current Housing: I Have Housing Concerned About Future Housing: No Difficulty Paying Gas/Electric Bills: No Difficulty Paying for Meds: No Currently Unemployed: No Education: Master's Degree or Higher Difficulty w/ Childcare or Family Care: No Spiritual care concerns: No Meds Home Medications and Allergies Home Medications ?Medication ?Instructions ?Recorded ?Confirmed ?Type aspirin 81 mg tablet,delayed 81 mg PO QAM #30 tabs 05/27/22 12/10/24 Rx release bumetanide 2 mg tablet 2 mg PO DAILY #60 tabs 05/27/22 12/10/24 Rx calcium acetate(phosphat bind) 667 667 mg PO TID #90 tabs 05/27/22 12/10/24 Rx mg tablet hydralazine 100 mg tablet 100 mg PO TID #270 tabs 03/12/24 12/10/24 Rx amino acids-protein hydrolysate 16 30 ml PO DAILY 12/10/24 12/10/24 History gram-100 kcal/30 mL oral liquid (Liquacel) cholecalciferol (vitamin D3) 250 250 mcg PO DAILY 12/10/24 12/10/24 History mcg (10,000 unit) capsule isosorbide mononitrate 30 mg 30 mg PO TID 12/10/24 12/10/24 History tablet,extended release 24 hr nifedipine 90 mg tablet,extended 90 mg PO DAILY 12/10/24 12/10/24 History release 24 hr omega 6-spy-sfx-fish oil 900 1 cap PO DAILY 12/10/24 12/10/24 History mg-1,400 mg capsule,delayed release Allergies Allergy/AdvReac Type Severity Reaction Status Date / Time No Known Allergies Allergy Verified 12/10/24 01:52 Vital Signs Vital Signs - 24 hr 12/09/24 20:30 12/09/24 21:33 12/09/24 21:40 Temperature 36.7 C Pulse Rate 91 91 Respiratory Rate 22 H 23 H Blood Pressure 139/93 H Pulse Oximetry 100 100 100 Oxygen Delivery Room Air Room Air 12/09/24 21:43 12/09/24 21:45 12/09/24 21:46 Temperature Pulse Rate 88 86 88 Respiratory Rate 19 24 H Blood Pressure 140/96 H Pulse Oximetry 99 99 Oxygen Delivery 12/09/24 22:24 12/09/24 22:30 12/09/24 22:31 Temperature Pulse Rate 82 86 88 Respiratory Rate 21 H 33 H 25 H Blood Pressure 152/91 H Pulse Oximetry 97 96 100 Oxygen Delivery 12/09/24 22:59 12/09/24 23:00 12/09/24 23:01 Temperature 36.6 C Pulse Rate 79 85 73 Respiratory Rate 17 18 16 Blood Pressure 149/101 H Pulse Oximetry 99 96 97 Oxygen Delivery 12/09/24 23:54 12/10/24 00:00 12/10/24 00:23 Temperature Pulse Rate 92 96 93 Respiratory Rate 21 H 29 H 21 H Blood Pressure Pulse Oximetry 97 Oxygen Delivery 12/10/24 00:28 12/10/24 00:30 12/10/24 00:31 Temperature Pulse Rate 95 97 Respiratory Rate 22 H 23 H Blood Pressure 155/102 H 154/96 H Pulse Oximetry 96 97 Oxygen Delivery 12/10/24 00:45 12/10/24 00:46 12/10/24 01:25 Temperature 36.4 C Pulse Rate 93 93 93 Respiratory Rate 19 19 19 Blood Pressure 156/93 H 156/93 H Pulse Oximetry 95 97 95 Oxygen Delivery 12/10/24 02:06 12/10/24 03:43 12/10/24 04:00 Temperature 36.3 C L Pulse Rate 93 88 Respiratory Rate 16 Blood Pressure 158/96 H Pulse Oximetry 99 Oxygen Delivery Room Air 12/10/24 06:00 12/10/24 08:00 12/10/24 08:00 Temperature 36.4 C L Pulse Rate 89 86 Respiratory Rate 17 Blood Pressure 178/90 H Pulse Oximetry 98 Oxygen Delivery Room Air 12/10/24 09:30 12/10/24 09:38 12/10/24 10:00 Temperature 36.7 C Pulse Rate 89 92 86 Respiratory Rate 16 Blood Pressure 176/104 H 167/97 H 165/101 H Pulse Oximetry 100 Oxygen Delivery 12/10/24 10:15 12/10/24 10:30 12/10/24 10:45 Temperature Pulse Rate 86 86 84 Respiratory Rate Blood Pressure 163/93 H 154/92 H 160/88 H Pulse Oximetry Oxygen Delivery 12/10/24 11:00 12/10/24 11:15 12/10/24 11:30 Temperature Pulse Rate 82 88 83 Respiratory Rate Blood Pressure 156/91 H 162/101 H 178/97 H Pulse Oximetry Oxygen Delivery 12/10/24 11:45 12/10/24 12:00 12/10/24 12:00 Temperature Pulse Rate 84 81 84 Respiratory Rate Blood Pressure 172/100 H 161/95 H Pulse Oximetry Oxygen Delivery 12/10/24 12:15 12/10/24 12:30 12/10/24 12:45 Temperature Pulse Rate 82 82 84 Respiratory Rate Blood Pressure 164/88 H 164/88 H 176/101 H Pulse Oximetry Oxygen Delivery 12/10/24 13:00 12/10/24 13:09 12/10/24 13:20 Temperature 37.0 C Pulse Rate 82 82 81 Respiratory Rate 16 Blood Pressure 172/105 H 170/101 H 161/92 H Pulse Oximetry 98 Oxygen Delivery 12/10/24 13:50 12/10/24 15:58 12/10/24 16:00 Temperature 36.7 C Pulse Rate 86 104 H Respiratory Rate 20 Blood Pressure 170/120 H 155/101 H Pulse Oximetry 99 Oxygen Delivery Exam Narrative: General: Alert oriented x3, no acute distress Neck: Supple, no JVD Chest: Bilaterally clear to auscultation, no rales or rhonchi Cardiac: S1, S2 +, regular rate, regular rhythm, no murmurs or rubs Extremities: B no pedal edema, no skin rash Neurologic: Alert and oriented x3, no focal neurological deficits Results Labs and Meds 12/10/24 02:48 12/10/24 02:48 Lab results: Cardiac Enzymes 12/09/24 12/09/24 12/10/24 Range/Units 20:50 23:40 02:48 AST 27 24 (17-59) U/L Troponin I 0.042 H* 0.046 H* 0.048 H* (0.000-0.034) ng/mL 12/10/24 12/10/24 Range/Units 09:03 12:19 AST (17-59) U/L Troponin I 0.043 H* 0.036 H* (0.000-0.034) ng/mL Coagulation 12/09/24 Range/Units 20:50 PT 13.3 (11.1-14.7) Seconds APTT 28.5 (22.3-36.8) Seconds Lipids 12/10/24 Range/Units 09:03 Triglycerides 60 (<150) mg/dL Cholesterol 165 (0-200) mg/dL CBC 12/09/24 12/10/24 Range/Units 20:50 02:48 WBC 5.3 4.3 L (4.5-10.0) K/mm3 RBC 3.41 L 3.08 L (4.6-6.20) M/mm3 Hgb 9.8 L 8.9 L (14.0-18.0) g/dL Hct 29.7 L 27.2 L (42.0-52.0) % Plt Count 167 134 L (150-375) k/mm3 Lymph # (Auto) 1.02 1.01 (0.9-3.2) K/mm3 [place] # (Auto) 0.5 0.5 (0.1-0.6) K/mm3 Eos # (Auto) 0.1 0.2 (0-0.3) K/mm3 Baso # (Auto) 0.0 0.0 (0.0-0.1) K/mm3 Comprehensive Metabolic Panel 12/09/24 12/10/24 Range/Units 20:50 02:48 Sodium 140 140 (137-145) mmol/L Potassium 5.4 H 5.4 H (3.4-5.0) mmol/L Chloride 107 107 (98-107) mmol/L Carbon Dioxide 19 L 21 L (22-30) mmol/L BUN 79 H 78 H (9-20) mg/dL Creatinine 14.29 H 14.69 H (0.7-1.3) mg/dL Glucose 101 122 H (65-110) mg/dL Calcium 10.4 H 9.5 (8.4-10.2) mg/dL AST 27 24 (17-59) U/L ALT 20 17 (6-50) U/L Alkaline Phosphatase 50 45 (38-126) U/L Total Protein 8.3 H 7.1 (6.3-8.2) g/dL Albumin 4.6 4.0 (3.5-5.1) g/dL Intake and Output 12/10/24 12/10/24 12/10/24 07:59 15:59 23:59 Intake Total 200 480 Output Total 600 2200 200 Balance -400 -1720 -200 Intake: Oral 200 480 Output: Urine 600 200 200 Net UF Removed 1999 Other: # Unmeasured Voids 1 Number of Bowel Movements Today 1 Patient Weight 12/10/24 23:59 Weight 89.5 kg
[2024-12-10 19:53] LABS: Hematocrit 24.6 % (42.0-52.0); Hemoglobin 8.1 g/dL (14.0-18.0); Immature Granulocyte Percent A 0.3 % (0-0.5); Lymphocytes Absolute Auto 1.02 K/mm3 (0.9-3.2); Mean Corpuscular HGB Conc 32.9 g/dl (32-36); Mean Corpuscular Hemoglobin 28.9 pg (26-34); Mean Corpuscular Volume 87.9 fl (80-100); Nucleated Red Blood Cells Absolute Auto 0.000 K/mm3 (0.0-0.012); Nucleated Red Blood Cells Perc 0.0 % (0.0-0.2); Platelet Count Result 125 k/mm3 (150-375); Red Blood Count 2.80 M/mm3 (4.6-6.20); White Blood Count 3.2 K/mm3 (4.5-10.0)
[2024-12-10 20:03] LABS: INR 1.0; Prothrombin Time 13.5 Seconds (11.1-14.7)
[2024-12-10 20:04] LABS: Partial Thromboplastin Time 31.2 Seconds (22.3-36.8)
[2024-12-10] MEDS: ISOSORBIDE MONONITRATE 30 MG TAB.ER.24H 60 MG PO (20:53)
[2024-12-10] MEDS: HEPARIN SOD/D5W 100 UNITS/ML 25,000 UNITS/250 ML BAG 10 UNITS IV CONT (20:53)
[2024-12-10] MEDS: METOPROLOL TARTRATE 12.5 MG TABLET PO (20:54)
[2024-12-11] VITALS (14 sets, daily range): BP systolic 117–155; BP diastolic 65–89; PULSE 73–98; RESP 16–20; TEMP 36.3–37.8; O2SAT 94–100
[2024-12-11 03:07] LABS: Hematocrit 23.4 % (42.0-52.0); Hemoglobin 7.6 g/dL (14.0-18.0); Immature Granulocyte Percent A 0.3 % (0-0.5); Lymphocytes Absolute Auto 0.97 K/mm3 (0.9-3.2); Mean Corpuscular HGB Conc 32.5 g/dl (32-36); Mean Corpuscular Hemoglobin 28.9 pg (26-34); Mean Corpuscular Volume 89.0 fl (80-100); Nucleated Red Blood Cells Absolute Auto 0.000 K/mm3 (0.0-0.012); Nucleated Red Blood Cells Perc 0.0 % (0.0-0.2); Platelet Count Result 111 k/mm3 (150-375); Red Blood Count 2.63 M/mm3 (4.6-6.20); White Blood Count 3.4 K/mm3 (4.5-10.0)
[2024-12-11 03:42] LABS: Partial Thromboplastin Time 64.1 Seconds (22.3-36.8)
[2024-12-11] MEDS: ISOSORBIDE MONONITRATE 30 MG TAB.ER.24H 60 MG PO ×3 (05:48→20:42)
--- NOTE | 2024-12-11 07:31 | PM.PNCARD ---
Progress Note: A&P Assessment and Plan (1) Acute on chronic combined systolic and diastolic heart failure: Code(s): I50.43 - Acute on chronic combined systolic (congestive) and diastolic (congestive) heart failure Status: Acute (2) NSTEMI (non-ST elevated myocardial infarction): Code(s): I21.4 - Non-ST elevation (NSTEMI) myocardial infarction Status: Acute (3) Hypertensive urgency: Code(s): I16.0 - Hypertensive urgency Status: Acute Plan Acute on chronic systolic and diastolic heart failure secondary to missed dialysis-elevated BNP Hypertension NSTEMI-ongoing chest pain ESRD on HD with missed dialysis on Sunday-he underwent dialysis today Plan: -Cardiac catheterization today. Risks and benefits of cardiac catheterization and possible PCI discussed with patient in detail. He is agreeable to proceed -Continue heparin drip -Continue aspirin, statin -Sublingual nitro p.r.n. for chest pain -Blood pressure control with Imdur, hydralazine, nifedipine -Added metoprolol 12.5 mg b.i.d. -TTE today -Lasix 20 mg IV -Check daily weights, ins and outs, renal function -Check and replace electrolytes to keep K greater than 4 and magnesium greater than 2 -Monitor on telemetry Subjective Date/time seen: 12/11/24 07:31 Interval history: Reason for encounter: NSTEMI, hypertensive urgency Relevant history: Patient continues to have off and on chest pain. Troponin has peaked. Blood pressure is better controlled. Telemetry shows sinus rhythm. Review of Systems Cardiovascular: Comments: As per HPI Respiratory: Comments: As per HPI Exam Narrative: General: Alert oriented x3, no acute distress Neck: Supple, no JVD Chest: Bilaterally clear to auscultation, no rales or rhonchi Cardiac: S1, S2 +, regular rate, regular rhythm, no murmurs or rubs Extremities: No pedal edema, no skin rash Neurologic: Alert and oriented x3, no focal neurological deficits Objective Data Vital Signs Vital Signs: Vital Signs - 24 hr 12/10/24 08:00 12/10/24 08:00 12/10/24 09:30 Temperature 36.7 C Pulse Rate 86 89 Respiratory Rate 16 Blood Pressure 176/104 H Pulse Oximetry 100 Oxygen Delivery Room Air 12/10/24 09:38 12/10/24 10:00 12/10/24 10:15 Temperature Pulse Rate 92 86 86 Respiratory Rate Blood Pressure 167/97 H 165/101 H 163/93 H Pulse Oximetry Oxygen Delivery 12/10/24 10:30 12/10/24 10:45 12/10/24 11:00 Temperature Pulse Rate 86 84 82 Respiratory Rate Blood Pressure 154/92 H 160/88 H 156/91 H Pulse Oximetry Oxygen Delivery 12/10/24 11:15 12/10/24 11:30 12/10/24 11:45 Temperature Pulse Rate 88 83 84 Respiratory Rate Blood Pressure 162/101 H 178/97 H 172/100 H Pulse Oximetry Oxygen Delivery 12/10/24 12:00 12/10/24 12:00 12/10/24 12:15 Temperature Pulse Rate 81 84 82 Respiratory Rate Blood Pressure 161/95 H 164/88 H Pulse Oximetry Oxygen Delivery 12/10/24 12:30 12/10/24 12:45 12/10/24 13:00 Temperature Pulse Rate 82 84 82 Respiratory Rate Blood Pressure 164/88 H 176/101 H 172/105 H Pulse Oximetry Oxygen Delivery 12/10/24 13:09 12/10/24 13:20 12/10/24 13:50 Temperature 37.0 C 36.7 C Pulse Rate 82 81 86 Respiratory Rate 16 20 Blood Pressure 170/101 H 161/92 H 170/120 H Pulse Oximetry 98 99 Oxygen Delivery 12/10/24 15:58 12/10/24 16:00 12/10/24 18:00 Temperature Pulse Rate 104 H Respiratory Rate Blood Pressure 155/101 H 154/92 H Pulse Oximetry Oxygen Delivery 12/10/24 20:00 12/10/24 20:00 12/10/24 20:44 Temperature 37.6 C Pulse Rate 84 96 95 Respiratory Rate 20 18 Blood Pressure 149/86 H Pulse Oximetry 96 99 Oxygen Delivery Room Air 12/10/24 20:54 12/11/24 00:00 12/11/24 01:03 Temperature 36.3 C L Pulse Rate 97 82 84 Respiratory Rate 20 Blood Pressure 120/65 Pulse Oximetry 96 Oxygen Delivery 12/11/24 04:00 12/11/24 04:42 Temperature 36.4 C Pulse Rate 76 73 Respiratory Rate 16 Blood Pressure 130/79 Pulse Oximetry 95 Oxygen Delivery Intake/Output Intake/Output: Intake & Output 07/07/25 12/09/24 12/10/24 12/11/24 23:59 23:59 23:59 23:59 Intake Total 920 69.7 Output Total 3200 300 Balance -2280 -230.3 Meds/Results Medications: Active Medications Generic Name Dose Route Start Last Admin Trade Name Freq PRN Reason Stop Dose Admin Acetaminophen 650 mg 12/10/24 08:43 Acetaminophen 325 Mg Tablet PO Q4H PRN Mild Pain (1-3) or Fever Aspirin 81 mg 12/10/24 09:00 12/10/24 14:33 Aspirin 81 Mg Enteric Tablet PO 81 mg QAM TICO Administration Atorvastatin Calcium 40 mg 12/11/24 09:00 Atorvastatin 40 Mg Tablet PO DAILY TICO Bisacodyl 5 mg 12/10/24 08:43 Bisacodyl 5 Mg Tablet Ec PO DAILY PRN Constipation Bumetanide 2 mg 12/10/24 09:00 12/10/24 14:33 Bumetanide 1 Mg Tablet PO 2 mg DAILY TICO Administration Heparin Sodium (Porcine) 5,000 units 12/10/24 09:00 12/10/24 14:34 Heparin Sodium 5,000 Units/Ml Vial SUB-Q Not Given Q12HR [facility] Heparin Sodium (Porcine) 4,000 units 12/10/24 18:53 Heparin Sodium 5,000 Units/Ml Vial IV PUSH PRN PRN aPTT less than 55 seconds Heparin Sodium (Porcine) 3,500 units 12/10/24 18:53 12/11/24 03:50 Heparin Sodium 5,000 Units/Ml Vial IV PUSH 3,500 units PRN PRN Administration aPTT 55 - 70 seconds Hydralazine HCl 100 mg 12/10/24 09:00 12/10/24 17:59 Hydralazine Hcl 50 Mg Tablet PO 100 mg TID [facility] Administration Albumin Human 50 mls @ 999 mls/hr 12/10/24 00:29 Albutein IVPB 01/09/25 00:28 Q10M PRN HYPOTENSION Heparin Sodium/Dextrose 25,000 units in 250 mls @ 12 mls/hr 12/10/24 19:30 12/11/24 03:51 Heparin Sodium/D5w 100 Units/Ml IV CONT 1,200 units/hr .[id number] [facility]ICO 12 mls/hr Titration Protocol 1,200 UNITS/HR Isosorbide Mononitrate 60 mg 12/10/24 20:00 12/11/24 05:48 Isosorbide Mononitrate 30 Mg Tab.Er.24h PO 60 mg TID@0600,1300,2000 TICO Administration Metoprolol Tartrate 12.5 mg 12/10/24 21:00 12/10/24 20:54 Metoprolol Tartrate 12.5 Mg Tablet PO 12.5 mg Q12HR [facility] Administration Nifedipine 90 mg 12/10/24 09:00 12/10/24 15:56 Nifedipine 30 Mg Tab.Er.24 PO 90 mg DAILY TICO Administration Nitroglycerin 0.4 mg 12/10/24 08:43 Nitroglycerin Sl 0.4 Mg Tablet SUBLINGUAL Q5MIN PRN Chest Pain Perflutren Lipid Microsphere 0 ml 12/10/24 08:43 Perflutren Lipid Microspheres 1.5 Ml Vial Diluted To 10 Ml Total Volume IV PUSH 12/13/24 08:45 ONCE PRN adequate visualization Protocol Radiology Results: ITS Impressions Chest X-Ray 12/09/24 21:24 IMPRESSION: No acute cardiopulmonary pathology. Labs Labs: Laboratory Results - last 24 hr 12/10/24 12/10/24 12/10/24 08:15 09:03 12:19 WBC RBC Hgb Hct MCV MCH MCHC RDW Plt Count MPV Immature Gran % (Auto) Neut % (Auto) Lymph % (Auto) [place] % (Auto) Eos % (Auto) Baso % (Auto) Lymph # (Auto) [place] # (Auto) Eos # (Auto) Baso # (Auto) Abs Immat Gran (auto) Absolute Neuts (auto) Absolute Nucleated RBC Nucleated RBC % PT INR APTT Troponin I 0.043 H* 0.036 H* Triglycerides 60 Cholesterol 165 LDL Cholesterol Direct 62 HDL Direct 62 Nasal MRSA (PCR) Not detected 12/10/24 12/11/24 19:48 02:59 WBC 3.2 L 3.4 L RBC 2.80 L 2.63 L Hgb 8.1 L 7.6 L Hct 24.6 L 23.4 L MCV 87.9 89.0 MCH 28.9 28.9 MCHC 32.9 32.5 RDW 14.5 14.6 H Plt Count 125 L 111 L MPV 10.2 9.5 Immature Gran % (Auto) 0.3 0.3 Neut % (Auto) 47.1 52.2 Lymph % (Auto) 32.4 28.6 [place] % (Auto) 15.2 H 13.0 H Eos % (Auto) 4.4 5.6 H Baso % (Auto) 0.6 0.3 Lymph # (Auto) 1.02 0.97 [place] # (Auto) 0.5 0.4 Eos # (Auto) 0.1 0.2 Baso # (Auto) 0.0 0.0 Abs Immat Gran (auto) 0.01 0.01 Absolute Neuts (auto) 1.5 1.8 Absolute Nucleated RBC 0.000 0.000 Nucleated RBC % 0.0 0.0 PT 13.5 INR 1.0 APTT 31.2 64.1 H Troponin I Triglycerides Cholesterol LDL Cholesterol Direct HDL Direct Nasal MRSA (PCR)
[2024-12-11] MEDS: NITROGLYCERIN SL 0.4 MG TABLET SUBLINGUAL ×3 (09:00→09:14)
[2024-12-11] MEDS: ASPIRIN 81 MG ENTERIC TABLET PO (09:05)
[2024-12-11] MEDS: ATORVASTATIN 40 MG TABLET PO (09:05)
[2024-12-11] MEDS: METOPROLOL TARTRATE 12.5 MG TABLET PO ×2 (09:06→20:43)
[2024-12-11 10:15] LABS: Partial Thromboplastin Time 151.2 Seconds (22.3-36.8)
--- NOTE | 2024-12-11 10:21 | P.PNIM_ITS ---
Progress Note: A&P Assessment and Plan (1) Acute on chronic combined systolic and diastolic heart failure: Code(s): I50.43 - Acute on chronic combined systolic (congestive) and diastolic (congestive) heart failure Status: Acute (2) Hypertensive urgency: Code(s): I16.0 - Hypertensive urgency Status: Acute (3) Elevated troponin: Code(s): R77.8 - Other specified abnormalities of plasma proteins Status: Acute (4) Chest pain: Code(s): R07.9 - Chest pain, unspecified Status: Acute (5) ESRD (end stage renal disease) on dialysis: Code(s): N18.6 - End stage renal disease; Z99.2 - Dependence on renal dialysis Status: Acute (6) Chronic anemia: Code(s): D64.9 - Anemia, unspecified Status: Acute Plan Chest pain Elevated troponin x2 EKG shows sinus rhythm no specific ST T-wave changes Possible demand ischemia due to acute heart failure, also possible due to NSTEMI Continue aspirin 81 mg b.i.d. p.o., Imdur 30 mg daily p.o. nitroglycerin sublingual p.r.n. 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 p.o. Nifedipine 90 mg daily p.o. Labetalol IV p.r.n. Patient fluid overload 80 Consult marketing traffic manager Chronic anemia No obvious bleeding Resulting from CKD Management per marketing traffic manager Subjective Date/time seen: 12/11/24 10:21 Interval history: I saw exam patient today, patient still has left chest pain, constant, improving. Patient denies shortness breath, abdomen pain nausea vomiting diarrhea Exam Narrative: GENERAL: Pleasant, in no acute distress. Well-nourished. - EYES: EOMI. Anicteric. - HENT: Moist mucous membranes. - LUNGS: Coarse breath sound bilaterall y. - CARDIOVASCULAR: Regular rate and rhyth m. No murmur. No JVD. - ABDOMEN: Soft, non-tender and non-dist ended. No palpable masses. - EXTREMITIES: No edema. Peripheral puls es 2+. Non-tender. - NEUROLOGIC: No focal neurological defi cits. CN II-XII grossly intact. - PSYCHIATRIC: Awake, Alert and oriented x 3. Appropriate mood and affect. - SKIN: No rashes or lesions. Warm. - LYMPH: No cervical lymphadenopathy. Objective Data Vital Signs Vital Signs: Vital Signs - 24 hr 12/10/24 10:30 12/10/24 10:45 12/10/24 11:00 Temperature Pulse Rate 86 84 82 Respiratory Rate Blood Pressure 154/92 H 160/88 H 156/91 H Pulse Oximetry Oxygen Delivery 12/10/24 11:15 12/10/24 11:30 12/10/24 11:45 Temperature Pulse Rate 88 83 84 Respiratory Rate Blood Pressure 162/101 H 178/97 H 172/100 H Pulse Oximetry Oxygen Delivery 12/10/24 12:00 12/10/24 12:00 12/10/24 12:15 Temperature Pulse Rate 81 84 82 Respiratory Rate Blood Pressure 161/95 H 164/88 H Pulse Oximetry Oxygen Delivery 12/10/24 12:30 12/10/24 12:45 12/10/24 13:00 Temperature Pulse Rate 82 84 82 Respiratory Rate Blood Pressure 164/88 H 176/101 H 172/105 H Pulse Oximetry Oxygen Delivery 12/10/24 13:09 12/10/24 13:20 12/10/24 13:50 Temperature 98.6 F 98.1 F Pulse Rate 82 81 86 Respiratory Rate 16 20 Blood Pressure 170/101 H 161/92 H 170/120 H Pulse Oximetry 98 99 Oxygen Delivery 12/10/24 15:58 12/10/24 16:00 12/10/24 18:00 Temperature Pulse Rate 104 H Respiratory Rate Blood Pressure 155/101 H 154/92 H Pulse Oximetry Oxygen Delivery 12/10/24 20:00 12/10/24 20:00 12/10/24 20:44 Temperature 99.6 F Pulse Rate 84 96 95 Respiratory Rate 20 18 Blood Pressure 149/86 H Pulse Oximetry 96 99 Oxygen Delivery Room Air 12/10/24 20:54 12/11/24 00:00 12/11/24 01:03 Temperature 97.4 F L Pulse Rate 97 82 84 Respiratory Rate 20 Blood Pressure 120/65 Pulse Oximetry 96 Oxygen Delivery 12/11/24 04:00 12/11/24 04:42 12/11/24 08:00 Temperature 97.6 F 98.7 F Pulse Rate 76 73 86 Respiratory Rate 16 18 Blood Pressure 130/79 117/78 Pulse Oximetry 95 95 Oxygen Delivery 12/11/24 09:06 Temperature Pulse Rate 90 Respiratory Rate Blood Pressure Pulse Oximetry Oxygen Delivery Intake/Output Intake/Output: Intake & Output 12/08/24 12/09/24 12/10/24 12/11/24 23:59 23:59 23:59 23:59 Intake Total 920 69.7 Output Total 3200 300 Balance -2280 -230.3 Meds/Results Medications: Active Medications Generic Name Dose Route Start Last Admin Trade Name Freq PRN Reason Stop Dose Admin Acetaminophen 650 mg 12/10/24 08:43 Acetaminophen 325 Mg Tablet PO Q4H PRN Mild Pain (1-3) or Fever Aspirin 81 mg 12/10/24 09:00 12/11/24 09:05 Aspirin 81 Mg Enteric Tablet PO 81 mg QAM TICO Administration Atorvastatin Calcium 40 mg 12/11/24 09:00 12/11/24 09:05 Atorvastatin 40 Mg Tablet PO 40 mg DAILY TICO Administration Bisacodyl 5 mg 12/10/24 08:43 Bisacodyl 5 Mg Tablet Ec PO DAILY PRN Constipation Bumetanide 2 mg 12/10/24 09:00 12/11/24 09:25 Bumetanide 1 Mg Tablet PO Not Given DAILY [facility] Heparin Sodium (Porcine) 5,000 units 12/10/24 09:00 12/10/24 14:34 Heparin Sodium 5,000 Units/Ml Vial SUB-Q Not Given Q12HR [facility] Heparin Sodium (Porcine) 4,000 units 12/10/24 18:53 Heparin Sodium 5,000 Units/Ml Vial IV PUSH PRN PRN aPTT less than 55 seconds Heparin Sodium (Porcine) 3,500 units 12/10/24 18:53 12/11/24 03:50 Heparin Sodium 5,000 Units/Ml Vial IV PUSH 3,500 units PRN PRN Administration aPTT 55 - 70 seconds Hydralazine HCl 100 mg 12/10/24 09:00 12/11/24 09:05 Hydralazine Hcl 50 Mg Tablet PO 100 mg TID [facility] Administration Albumin Human 50 mls @ 999 mls/hr 12/10/24 00:29 Albutein IVPB 01/09/25 00:28 Q10M PRN HYPOTENSION Heparin Sodium/Dextrose 25,000 units in 250 mls @ 12 mls/hr 12/10/24 19:30 12/11/24 03:51 Heparin Sodium/D5w 100 Units/Ml IV CONT 1,200 units/hr .[id number] [facility] 12 mls/hr Titration Protocol 1,200 UNITS/HR Isosorbide Mononitrate 60 mg 12/10/24 20:00 12/11/24 05:48 Isosorbide Mononitrate 30 Mg Tab.Er.24h PO 60 mg TID@0600,1300,2000 [facility] Administration Metoprolol Tartrate 12.5 mg 12/10/24 21:00 12/11/24 09:06 Metoprolol Tartrate 12.5 Mg Tablet PO 12.5 mg Q12HR [facility] Administration Nifedipine 90 mg 12/10/24 09:00 12/11/24 09:08 Nifedipine 30 Mg Tab.Er.24 PO 90 mg DAILY [facility]ICO Administration Nitroglycerin 0.4 mg 12/10/24 08:43 12/11/24 09:14 Nitroglycerin Sl 0.4 Mg Tablet SUBLINGUAL 0.4 mg Q5MIN PRN Administration Chest Pain Perflutren Lipid Microsphere 0 ml 12/10/24 08:43 Perflutren Lipid Microspheres 1.5 Ml Vial Diluted To 10 Ml Total Volume IV PUSH 12/13/24 08:45 ONCE PRN adequate visualization Protocol Radiology Results: ITS Impressions Chest X-Ray 12/09/24 21:24 IMPRESSION: No acute cardiopulmonary pathology. Labs Labs: Laboratory Results - last 24 hr 12/10/24 12/10/24 12/10/24 09:03 12:19 19:48 WBC 3.2 L RBC 2.80 L Hgb 8.1 L Hct 24.6 L MCV 87.9 MCH 28.9 MCHC 32.9 RDW 14.5 Plt Count 125 L MPV 10.2 Immature Gran % (Auto) 0.3 Neut % (Auto) 47.1 Lymph % (Auto) 32.4 [place] % (Auto) 15.2 H Eos % (Auto) 4.4 Baso % (Auto) 0.6 Lymph # (Auto) 1.02 [place] # (Auto) 0.5 Eos # (Auto) 0.1 Baso # (Auto) 0.0 Abs Immat Gran (auto) 0.01 Absolute Neuts (auto) 1.5 Absolute Nucleated RBC 0.000 Nucleated RBC % 0.0 PT 13.5 INR 1.0 APTT 31.2 Troponin I 0.036 H* Triglycerides 60 Cholesterol 165 LDL Cholesterol Direct 62 HDL Direct 62 12/11/24 12/11/24 02:59 09:52 WBC 3.4 L RBC 2.63 L Hgb 7.6 L Hct 23.4 L MCV 89.0 MCH 28.9 MCHC 32.5 RDW 14.6 H Plt Count 111 L MPV 9.5 Immature Gran % (Auto) 0.3 Neut % (Auto) 52.2 Lymph % (Auto) 28.6 [place] % (Auto) 13.0 H Eos % (Auto) 5.6 H Baso % (Auto) 0.3 Lymph # (Auto) 0.97 [place] # (Auto) 0.4 Eos # (Auto) 0.2 Baso # (Auto) 0.0 Abs Immat Gran (auto) 0.01 Absolute Neuts (auto) 1.8 Absolute Nucleated RBC 0.000 Nucleated RBC % 0.0 PT INR APTT 64.1 H 151.2 H Troponin I Triglycerides Cholesterol LDL Cholesterol Direct HDL Direct
--- NOTE | 2024-12-11 11:47 | P.PNNP_ITS ---
Progress Note: A&P Assessment and Plan (1) End stage renal disease: Code(s): N18.6 - End stage renal disease Status: Chronic Assessment and Plan: * HD tomorrow * continue Sun/Sun/Sunday dialysis schedule while hospitalized * follow electrolytes, volume status, and clearance * outpatient dialysis unit = [facility] (2) Chest pain: Code(s): R07.9 - Chest pain, unspecified Status: Acute Assessment and Plan: * troponin trend and EKG noted * Cardiology recommendations noted * cardiac catheterization this afternoon * continue ongoing medical management (3) SOB (shortness of breath): Code(s): R06.02 - Shortness of breath Status: Acute Assessment and Plan: * related to chest discomfort(?) * imaging without PVC or pulmonary edema * respiratory status following dialysis * no evidence of hypoxia * continue supportive therapy (4) Hypertension: Code(s): I10 - Essential (primary) hypertension Status: Chronic Assessment and Plan: * better at this time * resumed on home medications * fluid removal with HD may help to some degree * follow trend of hemodynamics (5) Anemia: Code(s): D64.9 - Anemia, unspecified Status: Chronic Assessment and Plan: * due to ESRD * Epogen with HD * follow trend of H/H (6) Polycystic kidney disease: Code(s): Q61.3 - Polycystic kidney, unspecified Status: Chronic Assessment and Plan: * known diagnosis * etiology of ESRD Will continue to follow. L Subjective Date/time seen: 12/11/24 11:47 Interval history: Follow-up for end stage renal disease on hemodialysis. Tolerated dialysis treatment yesterday without any issues or problems; continues to have on and off chest discomfort/pain since admission; blood pressure under better control at this time; noted plans for cardiac catheterization tentatively scheduled for this afternoon. Exam 2 Narrative: General: WD/WN male in NAD Heart: normal S1 and S2; no rub Lungs: decreased at bases Abdomen: soft, nontender, nondistended, positive bowel sounds Extremities: no cyanosis or clubbing; no edema Skin: warm and dry Objective Data Vital Signs Vital Signs: Vital Signs Temp Pulse Resp BP Pulse Ox O2 Del Method 12/11/24 11:40 99.1 F 83 18 138/76 96 12/11/24 09:06 90 12/11/24 08:00 Room Air 12/11/24 08:00 98.7 F 86 18 117/78 95 12/11/24 04:42 97.6 F 73 16 130/79 95 12/11/24 04:00 76 12/11/24 01:03 97.4 F L 84 20 120/65 96 12/11/24 00:00 82 12/10/24 20:54 97 12/10/24 20:44 99.6 F 95 18 149/86 H 99 12/10/24 20:00 96 12/10/24 20:00 84 20 96 Room Air 12/10/24 18:00 154/92 H Intake/Output Intake/Output: Intake & Output 12/08/24 12/09/24 12/10/24 12/11/24 23:59 23:59 23:59 23:59 Intake Total 920 148.1 Output Total 3200 900 Balance -2280 -751.9 Meds/Results Medications: Active Medications Generic Name Dose Route Start Last Admin Trade Name Waleq PRN Reason Stop Dose Admin Acetaminophen 650 mg 12/10/24 08:43 Acetaminophen 325 Mg Tablet PO Q4H PRN Mild Pain (1-3) or Fever Aspirin 81 mg 12/10/24 09:00 12/11/24 09:05 Aspirin 81 Mg Enteric Tablet PO 81 mg QAM TICO Administration Atorvastatin Calcium 40 mg 12/11/24 09:00 12/11/24 09:05 Atorvastatin 40 Mg Tablet PO 40 mg DAILY TICO Administration Bisacodyl 5 mg 12/10/24 08:43 Bisacodyl 5 Mg Tablet Ec PO DAILY PRN Constipation Bumetanide 2 mg 12/10/24 09:00 12/11/24 09:25 Bumetanide 1 Mg Tablet PO Not Given DAILY [facility] Heparin Sodium (Porcine) 5,000 units 12/10/24 09:00 12/10/24 14:34 Heparin Sodium 5,000 Units/Ml Vial SUB-Q Not Given Q12HR [facility] Heparin Sodium (Porcine) 4,000 units 12/10/24 18:53 Heparin Sodium 5,000 Units/Ml Vial IV PUSH PRN PRN aPTT less than 55 seconds Heparin Sodium (Porcine) 3,500 units 12/10/24 18:53 12/11/24 03:50 Heparin Sodium 5,000 Units/Ml Vial IV PUSH 3,500 units PRN PRN Administration aPTT 55 - 70 seconds Hydralazine HCl 100 mg 12/10/24 09:00 12/11/24 17:06 Hydralazine Hcl 50 Mg Tablet PO 100 mg TID TICO Administration Albumin Human 50 mls @ 999 mls/hr 12/10/24 00:29 Albutein IVPB 01/09/25 00:28 Q10M PRN HYPOTENSION Heparin Sodium/Dextrose 25,000 units in 250 mls @ 9 mls/hr 12/10/24 19:30 12/11/24 11:23 Heparin Sodium/D5w 100 Units/Ml IV CONT 12/12/24 20:53 900 units/hr .Q24H [facility] 9 mls/hr Titration Protocol 900 UNITS/HR Isosorbide Mononitrate 60 mg 12/10/24 20:00 12/11/24 12:18 Isosorbide Mononitrate 30 Mg Tab.Er.24h PO 60 mg TID@0600,1300,2000 TICO Administration Metoprolol Tartrate 12.5 mg 12/10/24 21:00 12/11/24 09:06 Metoprolol Tartrate 12.5 Mg Tablet PO 12.5 mg Q12HR [facility] Administration Nifedipine 90 mg 12/10/24 09:00 12/11/24 09:08 Nifedipine 30 Mg Tab.Er.24 PO 90 mg DAILY TICO Administration Nitroglycerin 0.4 mg 12/10/24 08:43 12/11/24 09:14 Nitroglycerin Sl 0.4 Mg Tablet SUBLINGUAL 0.4 mg Q5MIN PRN Administration Chest Pain Perflutren Lipid Microsphere 0 ml 12/10/24 08:43 Perflutren Lipid Microspheres 1.5 Ml Vial Diluted To 10 Ml Total Volume IV PUSH 12/13/24 08:45 ONCE PRN adequate visualization Protocol Radiology Results: ITS Impressions Chest X-Ray 12/09/24 21:24 IMPRESSION: No acute cardiopulmonary pathology. Labs Labs: Laboratory Tests 12/11/24 02:59 12/10/24 02:48
--- NOTE | 2024-12-11 16:20 | PC.NURSE ---
This RN inquired to Dr. Moriah DUMAS, consulting physician about resuming heparin MD Moriah hein states to resume heparin for a total of 48 hours from which it was initially started. Pt's nurse, Maddy MURRAY notified and verbalized understanding.
[2024-12-11 16:52] LABS: Partial Thromboplastin Time 54.0 Seconds (22.3-36.8)
[2024-12-11] MEDS: HEPARIN SOD/D5W 100 UNITS/ML 25,000 UNITS/250 ML BAG 9 UNITS IV CONT (18:32)
--- NOTE | 2024-12-11 19:00 | PC.NURSE ---
This RN inquired to Dr. Moriah DUMAS about pt's heparin drip since pt had since developed bleeding from fistula according to his RN Maddy on 3MS. MD Major states to stop heparin drip and direct all other questions to the hospitalist.
[2024-12-11] MEDS: ACETAMINOPHEN 325 MG TABLET 650 MG PO (20:54)
[2024-12-12] VITALS (30 sets, daily range): BP systolic 125–173; BP diastolic 67–96; PULSE 80–101; RESP 16–22; TEMP 36.9–38.2; O2SAT 98–99
[2024-12-12] MEDS: ISOSORBIDE MONONITRATE 30 MG TAB.ER.24H 60 MG PO ×3 (05:05→21:31)
[2024-12-12] MEDS: ACETAMINOPHEN 325 MG TABLET 650 MG PO ×2 (05:56→21:33)
[2024-12-12 07:23] LABS: Hematocrit 23.7 % (42.0-52.0); Hemoglobin 7.6 g/dL (14.0-18.0); Immature Granulocyte Percent A 0.2 % (0-0.5); Lymphocytes Absolute Auto 1.04 K/mm3 (0.9-3.2); Mean Corpuscular HGB Conc 32.1 g/dl (32-36); Mean Corpuscular Hemoglobin 28.7 pg (26-34); Mean Corpuscular Volume 89.4 fl (80-100); Nucleated Red Blood Cells Absolute Auto 0.000 K/mm3 (0.0-0.012); Nucleated Red Blood Cells Perc 0.0 % (0.0-0.2); Platelet Count Result 113 k/mm3 (150-375); Red Blood Count 2.65 M/mm3 (4.6-6.20); White Blood Count 4.1 K/mm3 (4.5-10.0)
[2024-12-12 07:34] LABS: INR 1.1; Prothrombin Time 14.1 Seconds (11.1-14.7)
[2024-12-12 07:42] LABS: Albumin Level 3.3 g/dL (3.5-5.1); Anion Gap 9 mmol/L (4-12); Blood Urea Nitrogen 64 mg/dL (9-20); Calcium 8.3 mg/dL (8.4-10.2); Carbon Dioxide 24 mmol/L (22-30); Chloride 104 mmol/L (98-107); Estimated CRCL calculation 7 ml/min; Estimated Glomerular Filt Rate 4; Glucose 93 mg/dL (65-110); Potassium 5.3 mmol/L (3.4-5.0); Sodium 137 mmol/L (137-145)
--- NOTE | 2024-12-12 08:19 | P.PNIM_ITS ---
Progress Note: A&P Assessment and Plan (1) Acute on chronic combined systolic and diastolic heart failure: Code(s): I50.43 - Acute on chronic combined systolic (congestive) and diastolic (congestive) heart failure Status: Acute (2) Hypertensive urgency: Code(s): I16.0 - Hypertensive urgency Status: Acute (3) Elevated troponin: Code(s): R77.8 - Other specified abnormalities of plasma proteins Status: Acute (4) Chest pain: Code(s): R07.9 - Chest pain, unspecified Status: Acute (5) ESRD (end stage renal disease) on dialysis: Code(s): N18.6 - End stage renal disease; Z99.2 - Dependence on renal dialysis Status: Acute (6) Chronic anemia: Code(s): D64.9 - Anemia, unspecified Status: Acute Plan Chest pain Elevated troponin x2 EKG shows sinus rhythm no specific ST T-wave changes Possible demand ischemia due to acute heart failure, also possible due to NSTEMI Continue aspirin 81 mg b.i.d. p.o., Imdur 30 mg daily p.o. nitroglycerin sublingual p.r.n. 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 p.o. Nifedipine 90 mg daily p.o. Labetalol IV p.r.n. 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 Well-nourished. - EYES: EOMI. Anicteric. - HENT: Moist mucous membranes. - LUNGS: Coarse breath sound bilaterall y. - CARDIOVASCULAR: Regular rate and rhyth m. No murmur. No JVD. - ABDOMEN: Soft, non-tender and non-dist ended. No palpable masses. - EXTREMITIES: No edema. Peripheral puls es 2+. Non-tender. - NEUROLOGIC: No focal neurological defi cits. CN II-XII grossly intact. - PSYCHIATRIC: Awake, Alert and oriented x 3. Appropriate mood and affect. - SKIN: No rashes or lesions. Warm. - LYMPH: No cervical lymphadenopathy. Objective Data Vital Signs Vital Signs: Vital Signs - 24 hr 12/11/24 09:06 12/11/24 12:00 12/11/24 12:00 Temperature 99.1 F Pulse Rate 90 83 83 Respiratory Rate 18 Blood Pressure 138/76 Pulse Oximetry 96 Oxygen Delivery 12/11/24 12:02 12/11/24 16:00 12/11/24 16:00 Temperature 99.4 F Pulse Rate 87 92 Respiratory Rate 18 Blood Pressure 143/83 H Pulse Oximetry 94 95 Oxygen Delivery Room Air 12/11/24 20:00 12/11/24 20:02 12/11/24 20:43 Temperature 100.1 F H Pulse Rate 98 94 96 Respiratory Rate 16 Blood Pressure 155/89 H Pulse Oximetry 95 Oxygen Delivery 12/11/24 20:54 12/11/24 22:15 12/11/24 22:15 Temperature 100.1 F H 98.6 F 98.6 F Pulse Rate 97 Respiratory Rate 16 Blood Pressure 127/68 Pulse Oximetry 100 Oxygen Delivery 12/12/24 00:00 12/12/24 04:00 12/12/24 04:53 Temperature 100.2 F H Pulse Rate 84 86 85 Respiratory Rate 18 Blood Pressure 158/87 H Pulse Oximetry 98 Oxygen Delivery 12/12/24 05:56 12/12/24 06:47 12/12/24 07:35 Temperature 100.2 F H 98.4 F 99.0 F Pulse Rate 86 Respiratory Rate 16 Blood Pressure 144/76 H Pulse Oximetry 98 Oxygen Delivery Intake/Output Intake/Output: Intake & Output 12/09/24 12/10/24 12/11/24 12/12/24 23:59 23:59 23:59 23:59 Intake Total 920 452.5 790 Output Total 3200 900 200 Balance -2280 -447.5 590 Meds/Results Medications: Active Medications Generic Name Dose Route Start Last Admin Trade Name Freq PRN Reason Stop Dose Admin Acetaminophen 650 mg 12/10/24 08:43 12/12/24 05:56 Acetaminophen 325 Mg Tablet PO 650 mg Q4H PRN Administration Mild Pain (1-3) or Fever Aspirin 81 mg 12/10/24 09:00 12/11/24 09:05 Aspirin 81 Mg Enteric Tablet PO 81 mg QAM TICO Administration Atorvastatin Calcium 40 mg 12/11/24 09:00 12/11/24 09:05 Atorvastatin 40 Mg Tablet PO 40 mg DAILY [facility] Administration Bisacodyl 5 mg 12/10/24 08:43 Bisacodyl 5 Mg Tablet Ec PO DAILY PRN Constipation Bumetanide 2 mg 12/10/24 09:00 12/11/24 09:25 Bumetanide 1 Mg Tablet PO Not Given DAILY [facility] Heparin Sodium (Porcine) 5,000 units 12/10/24 09:00 12/10/24 14:34 Heparin Sodium 5,000 Units/Ml Vial SUB-Q Not Given Q12HR [facility] Hydralazine HCl 100 mg 12/10/24 09:00 12/11/24 17:06 Hydralazine Hcl 50 Mg Tablet PO 100 mg TID [facility] Administration Albumin Human 50 mls @ 999 mls/hr 12/10/24 00:29 Albutein IVPB 01/09/25 00:28 Q10M PRN HYPOTENSION Isosorbide Mononitrate 60 mg 12/10/24 20:00 12/12/24 05:05 Isosorbide Mononitrate 30 Mg Tab.Er.24h PO 60 mg TID@0600,1300,2000 [facility] Administration Metoprolol Tartrate 12.5 mg 12/10/24 21:00 12/11/24 20:43 Metoprolol Tartrate 12.5 Mg Tablet PO 12.5 mg Q12HR [facility] Administration Nifedipine 90 mg 12/10/24 09:00 12/11/24 09:08 Nifedipine 30 Mg Tab.Er.24 PO 90 mg DAILY [facility] Administration Nitroglycerin 0.4 mg 12/10/24 08:43 12/11/24 09:14 Nitroglycerin Sl 0.4 Mg Tablet SUBLINGUAL 0.4 mg Q5MIN PRN Administration Chest Pain Perflutren Lipid Microsphere 0 ml 12/10/24 08:43 Perflutren Lipid Microspheres 1.5 Ml Vial Diluted To 10 Ml Total Volume IV PUSH 12/13/24 08:45 ONCE PRN adequate visualization Protocol Radiology Results: ITS Impressions Chest X-Ray 12/09/24 21:24 IMPRESSION: No acute cardiopulmonary pathology. Labs Labs: Laboratory Results - last 24 hr 12/11/24 12/11/24 12/12/24 09:52 16:31 07:17 WBC 4.1 L RBC 2.65 L Hgb 7.6 L Hct 23.7 L MCV 89.4 MCH 28.7 MCHC 32.1 RDW 14.6 H Plt Count 113 L MPV 9.5 Immature Gran % (Auto) 0.2 Neut % (Auto) 57.2 Lymph % (Auto) 25.3 [place] % (Auto) 12.7 H Eos % (Auto) 4.1 Baso % (Auto) 0.5 Lymph # (Auto) 1.04 [place] # (Auto) 0.5 Eos # (Auto) 0.2 Baso # (Auto) 0.0 Abs Immat Gran (auto) 0.01 Absolute Neuts (auto) 2.4 Absolute Nucleated RBC 0.000 Nucleated RBC % 0.0 PT 14.1 INR 1.1 APTT 151.2 H 54.0 H Sodium 137 Potassium 5.3 H Chloride 104 Carbon Dioxide 24 Anion Gap 9 BUN 64 H D Creatinine 12.04 H Estim Creat Clear Calc 7 Estimated GFR 4 L Glucose 93 Calcium 8.3 L Phosphorus 4.1 Albumin 3.3 L
[2024-12-12] MEDS: EPOETIN ALFA-EPBX 20,000 UNITS/ML VIAL 20000 UNITS IV PUSH (09:25)
[2024-12-12] MEDS: SODIUM CHLORIDE 0.9% IV 1,000 ML 999 ML IV CONT (09:26)
--- NOTE | 2024-12-12 09:40 | PM.PNNEP ---
Progress Note: A&P Assessment and Plan (1) End stage renal disease: Code(s): N18.6 - End stage renal disease Status: Chronic Assessment and Plan: HD today continue Sun/Sun/Sunday dialysis schedule while hospitalized follow electrolytes, volume status, and clearance outpatient dialysis unit = [facility] (2) Chest pain: Code(s): R07.9 - Chest pain, unspecified Status: Acute Assessment and Plan: seems better troponin trend and EKG noted Cardiology recommendations noted reschedule cardiac catheterization?? continue ongoing medical management (3) SOB (shortness of breath): Code(s): R06.02 - Shortness of breath Status: Acute Assessment and Plan: related to chest discomfort(?) imaging without PVC or pulmonary edema respiratory status following dialysis no evidence of hypoxia continue supportive therapy (4) Hypertension: Code(s): I10 - Essential (primary) hypertension Status: Chronic Assessment and Plan: better at this time resumed on home medications fluid removal with HD may help to some degree follow trend of hemodynamics (5) Anemia: Code(s): D64.9 - Anemia, unspecified Status: Chronic Assessment and Plan: due to ESRD Epogen with HD follow trend of H/H (6) Polycystic kidney disease: Code(s): Q61.3 - Polycystic kidney, unspecified Status: Chronic Assessment and Plan: known diagnosis etiology of ESRD Will continue to follow. Subjective Date/time seen: 12/12/24 09:40 Interval history: Follow-up for end stage renal disease on hemodialysis. Tolerating dialysis treatment at the time of my visit (seen on HD at 9:30am); apparently refused cardiac catheterization yesterday afternoon (he states he was getting told too many different things with regard to the procedure -- radial approach versus femoral approach...etc); no further chest pain/discomfort at this time; no other issues/events overnight or earlier this morning. Exam Narrative: General: WD/WN male in NAD Heart: normal S1 and S2; no rub Lungs: decreased at bases Abdomen: soft, nontender, nondistended, positive bowel sounds Extremities: no cyanosis or clubbing; no edema Skin: warm and intact Objective Data Vital Signs Vital Signs: Vital Signs Temp Pulse Resp BP Pulse Ox O2 Del Method 12/12/24 09:30 96 134/82 12/12/24 09:15 92 151/85 H 12/12/24 09:00 95 145/82 H 12/12/24 08:45 90 153/83 H 12/12/24 08:30 80 142/80 H 12/12/24 08:15 80 146/93 H 12/12/24 08:00 83 12/12/24 08:00 Room Air 12/12/24 08:00 81 134/67 12/12/24 07:49 84 132/73 12/12/24 07:35 99.0 F 86 16 144/76 H 98 12/12/24 06:47 98.4 F 12/12/24 05:56 100.2 F H 12/12/24 04:53 100.2 F H 85 18 158/87 H 98 12/12/24 04:00 86 12/12/24 00:00 84 12/11/24 22:15 98.6 F 12/11/24 22:15 98.6 F 97 16 127/68 100 12/11/24 20:54 100.1 F H 12/11/24 20:43 96 12/11/24 20:02 100.1 F H 94 16 155/89 H 95 12/11/24 20:00 98 Intake/Output Intake/Output: Intake & Output 12/09/24 12/10/24 12/11/24 12/12/24 23:59 23:59 23:59 23:59 Intake Total 920 452.5 1150 Output Total 3200 900 2200 Balance -2280 -447.5 -1050 Meds/Results Medications: Active Medications Generic Name Dose Route Start Last Admin Trade Name Ahsan PRN Reason Stop Dose Admin Acetaminophen 650 mg 12/10/24 08:43 12/12/24 05:56 Acetaminophen 325 Mg Tablet PO 650 mg Q4H PRN Administration Mild Pain (1-3) or Fever Aspirin 81 mg 12/10/24 09:00 12/12/24 11:51 Aspirin 81 Mg Enteric Tablet PO 81 mg QAM [facility] Administration Atorvastatin Calcium 40 mg 12/11/24 09:00 12/12/24 11:51 Atorvastatin 40 Mg Tablet PO 40 mg DAILY [facility] Administration Bisacodyl 5 mg 12/10/24 08:43 Bisacodyl 5 Mg Tablet Ec PO DAILY PRN Constipation Bumetanide 2 mg 12/10/24 09:00 12/12/24 11:51 Bumetanide 1 Mg Tablet PO 2 mg DAILY [facility] Administration Heparin Sodium (Porcine) 5,000 units 12/10/24 09:00 12/10/24 14:34 Heparin Sodium 5,000 Units/Ml Vial SUB-Q Not Given Q12HR [facility] Hydralazine HCl 100 mg 12/10/24 09:00 12/12/24 11:51 Hydralazine Hcl 50 Mg Tablet PO 100 mg TID [facility] Administration Albumin Human 50 mls @ 999 mls/hr 12/10/24 00:29 Albutein IVPB 01/09/25 00:28 Q10M PRN HYPOTENSION Ceftriaxone Sodium 2 gm/ 100 mls @ 200 mls/hr 12/12/24 12:00 Sodium Chloride IVPB Q24H [facility] Isosorbide Mononitrate 60 mg 12/10/24 20:00 12/12/24 11:51 Isosorbide Mononitrate 30 Mg Tab.Er.24h PO 60 mg TID@0600,1300,2000 [facility] Administration Metoprolol Tartrate 12.5 mg 12/10/24 21:00 12/12/24 11:50 Metoprolol Tartrate 12.5 Mg Tablet PO 12.5 mg Q12HR [facility] Administration Nifedipine 90 mg 12/10/24 09:00 12/12/24 11:50 Nifedipine 30 Mg Tab.Er.24 PO 90 mg DAILY [facility] Administration Nitroglycerin 0.4 mg 12/10/24 08:43 12/11/24 09:14 Nitroglycerin Sl 0.4 Mg Tablet SUBLINGUAL 0.4 mg Q5MIN PRN Administration Chest Pain Perflutren Lipid Microsphere 0 ml 12/10/24 08:43 Perflutren Lipid Microspheres 1.5 Ml Vial Diluted To 10 Ml Total Volume IV PUSH 12/13/24 08:45 ONCE PRN adequate visualization Protocol Radiology Results: ITS Impressions Chest X-Ray 12/12/24 14:54 IMPRESSION: Small left-sided pleural effusion without focal infiltrate. Labs Labs: Laboratory Tests 12/12/24 07:17 12/12/24 07:17 Calcium 8.3 L Phosphorus 4.1 Albumin 3.3 L
[2024-12-12] MEDS: METOPROLOL TARTRATE 12.5 MG TABLET PO ×2 (11:50→21:31)
[2024-12-12] MEDS: ASPIRIN 81 MG ENTERIC TABLET PO (11:51)
[2024-12-12] MEDS: ATORVASTATIN 40 MG TABLET PO (11:51)
[2024-12-12] MEDS: BUMETANIDE 1 MG TABLET 2 MG PO (11:51)
--- NOTE | 2024-12-12 13:31 | PC.NURSE ---
Pt had previously been working with delivery professional Moriah. 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 Pt states he wants a new delivery professional on 12/12. Called Moriah who stated she doesn't have anyone here anymore, that Dr. Reynolds left; stated that he would need to be seen tomorrow.
[2024-12-12] MEDS: cefTRIAXone 2 GM in SODIUM CHLORIDE 0.9% IV 100 ML 200 ML IVPB (18:03)
[2024-12-12 20:36] LABS: Add Urine Microscopic? YES; Appearance Urine Clear (Clear); Glucose Urine UA Trace mg/dL (Negative); Leukocyte Esterase Ur Negative LEU/UL (Negative); Nitrate Urine Negative (Negative); Non Pathogenic Casts 0-2; Specific Grav Ur 1.010 (1.001-1.035)
[2024-12-13] VITALS (12 sets, daily range): BP systolic 120–171; BP diastolic 76–95; PULSE 77–99; RESP 16–20; TEMP 36.3–37.3; O2SAT 93–100
[2024-12-13] MEDS: ISOSORBIDE MONONITRATE 30 MG TAB.ER.24H 60 MG PO ×3 (05:13→21:04)
[2024-12-13 07:51] LABS: Hematocrit 24.3 % (42.0-52.0); Hemoglobin 7.7 g/dL (14.0-18.0); Immature Granulocyte Percent A 0.7 % (0-0.5); Lymphocytes Absolute Auto 1.08 K/mm3 (0.9-3.2); Mean Corpuscular HGB Conc 31.7 g/dl (32-36); Mean Corpuscular Hemoglobin 29.3 pg (26-34); Mean Corpuscular Volume 92.4 fl (80-100); Nucleated Red Blood Cells Absolute Auto 0.000 K/mm3 (0.0-0.012); Nucleated Red Blood Cells Perc 0.0 % (0.0-0.2); Platelet Count Result 121 k/mm3 (150-375); Red Blood Count 2.63 M/mm3 (4.6-6.20); White Blood Count 4.6 K/mm3 (4.5-10.0)
[2024-12-13] MEDS: ATORVASTATIN 40 MG TABLET PO (08:22)
[2024-12-13] MEDS: ASPIRIN 81 MG ENTERIC TABLET PO (08:22)
[2024-12-13 08:23] LABS: Albumin Level 3.3 g/dL (3.5-5.1); Anion Gap 7 mmol/L (4-12); Blood Urea Nitrogen 43 mg/dL (9-20); Calcium 8.3 mg/dL (8.4-10.2); Carbon Dioxide 25 mmol/L (22-30); Chloride 107 mmol/L (98-107); Estimated CRCL calculation 9 ml/min; Estimated Glomerular Filt Rate 6; Glucose 91 mg/dL (65-110); Potassium 5.1 mmol/L (3.4-5.0); Sodium 139 mmol/L (137-145)
[2024-12-13] MEDS: BUMETANIDE 1 MG TABLET 2 MG PO (08:23)
[2024-12-13] MEDS: METOPROLOL TARTRATE 12.5 MG TABLET PO (08:23)
--- NOTE | 2024-12-13 09:30 | PM.PNCARD ---
Progress Note: A&P Assessment and Plan (1) Acute on chronic combined systolic and diastolic heart failure: Code(s): I50.43 - Acute on chronic combined systolic (congestive) and diastolic (congestive) heart failure Status: Acute (2) NSTEMI (non-ST elevated myocardial infarction): Code(s): I21.4 - Non-ST elevation (NSTEMI) myocardial infarction Status: Acute (3) Hypertensive urgency: Code(s): I16.0 - Hypertensive urgency Status: Acute Plan Acute on chronic systolic and diastolic heart failure secondary to missed dialysis- improved Hypertension NSTEMI- chest pain is resolved ESRD on HD with missed dialysis on Sunday- feeling better Plan: - once again talked him but possibility of a catheterization. Previously fused but now is willing to pursue angiogram. He does have elevated temperatures of 100.7. Continue antibiotics and continue to look for signs of infection. - Keep NPO after midnight tomorrow night for angiogram on Sunday assuming no clear active infection is found -Continue aspirin, statin -Sublingual nitro p.r.n. for chest pain -Blood pressure control with Imdur, hydralazine, nifedipine - Will increase his metoprolol tartrate 25 mg p.o. b.i.d. for hypertension and CHF. Subjective Date/time seen: 12/13/24 09:30 Interval history: Reason for encounter: NSTEMI, hypertensive urgency Relevant history: Patient continues to have off and on chest pain. Troponin has peaked. Blood pressure is better controlled. Telemetry shows sinus rhythm. Will Date of service 12/13/2024: He denies any chest pain at present. No shortness of breath. Feels pretty good at this stage. T-max though his 100.7 Review of Systems Review of Systems: All systems reviewed & are unremarkable except as noted in HPI and below Constitutional: Constitutional: Denies body ache(s) ENT: Denies Normal hearing present Cardiovascular: Cardiovascular: Denies chest pain Respiratory: Respiratory: Denies hemoptysis Gastrointestinal: Gastrointestinal: Denies abdominal pain Genitourinary: Genitourinary: Denies hematuria Musculoskeletal: Musculoskeletal: Denies myalgias Integumentary/Breasts: Skin/Breast: Denies erythema Neurologic: Denies Abnormal speech present Psychiatric: Psychiatric: Denies confusion Endocrine: Endocrine: Denies excessive sweating Hematologic/Lymphatic: Hematologic/Lymphatic: Denies easy bleeding Exam Narrative: General: Alert oriented x3, no acute distress Neck: Supple, no JVD Chest: Bilaterally clear to auscultation, no rales or rhonchi Cardiac: S1, S2 +, regular rate, regular rhythm, no murmurs or rubs Extremities: No pedal edema, no skin rash Neurologic: Alert and oriented x3, no focal neurological deficits Const: General: comfortable HENMT: Ears: TM's normal bilaterally Face/Nose/Sinus: Normal nares present Eyes: General: appearance normal, both eyes and all related structures Sclera: sclerae normal Neck: Neck: supple and no JVD Resp: Effort & Inspection: normal respiratory effort Auscultation: clear to auscultation bilaterally Cardio: Rate: regular rate Rhythm: regular rhythm GI: Inspection: non-distended GI Palp: Yes Soft to palpation Skin: General skin exam: normal color Neuro: Speech: normal speech Sensory Exam: normal sensation Extrem: General: normal to inspection Psych: Mental Status: mental status grossly normal Objective Data Vital Signs Vital Signs: Vital Signs - 24 hr 12/12/24 09:45 12/12/24 10:00 12/12/24 10:15 Temperature Pulse Rate 100 90 92 Respiratory Rate Blood Pressure 141/83 H 140/76 138/79 Pulse Oximetry 12/12/24 10:30 12/12/24 10:45 12/12/24 11:00 Temperature Pulse Rate 89 90 101 H Respiratory Rate Blood Pressure 135/80 125/77 139/86 Pulse Oximetry 12/12/24 11:20 12/12/24 11:31 12/12/24 11:50 Temperature 37.2 C Pulse Rate 95 96 96 Respiratory Rate 16 Blood Pressure 141/92 H 144/91 H Pulse Oximetry 98 12/12/24 12:00 12/12/24 16:00 12/12/24 16:00 Temperature 37.4 C Pulse Rate 90 89 97 Respiratory Rate 22 H Blood Pressure 139/85 Pulse Oximetry 99 12/12/24 20:00 12/12/24 20:14 12/12/24 21:31 Temperature 38.2 C H Pulse Rate 92 93 92 Respiratory Rate 16 Blood Pressure 173/96 H Pulse Oximetry 98 12/12/24 21:33 12/12/24 22:23 12/13/24 00:00 Temperature 38.2 C H 37.4 C Pulse Rate 80 Respiratory Rate Blood Pressure Pulse Oximetry 12/13/24 00:38 12/13/24 04:00 12/13/24 05:14 Temperature 36.7 C 37.3 C Pulse Rate 77 77 79 Respiratory Rate 16 20 Blood Pressure 120/79 137/88 Pulse Oximetry 99 99 12/13/24 08:00 12/13/24 08:23 Temperature 37.2 C Pulse Rate 80 79 Respiratory Rate 18 Blood Pressure 139/82 Pulse Oximetry 100 Intake/Output Intake/Output: Intake & Output 12/10/24 12/11/24 12/12/24 12/13/24 23:59 23:59 23:59 23:59 Intake Total 920 452.5 1430 550 Output Total 3200 900 2200 770 Balance -2280 -447.5 -770 -220 Meds/Results Medications: Active Medications Generic Name Dose Route Start Last Admin Trade Name Freq PRN Reason Stop Dose Admin Acetaminophen 650 mg 12/10/24 08:43 12/12/24 21:33 Acetaminophen 325 Mg Tablet PO 650 mg Q4H PRN Administration Mild Pain (1-3) or Fever Aspirin 81 mg 12/10/24 09:00 12/13/24 08:22 Aspirin 81 Mg Enteric Tablet PO 81 mg QAM [facility] Administration Atorvastatin Calcium 40 mg 12/11/24 09:00 12/13/24 08:22 Atorvastatin 40 Mg Tablet PO 40 mg DAILY [facility] Administration Bisacodyl 5 mg 12/10/24 08:43 Bisacodyl 5 Mg Tablet Ec PO DAILY PRN Constipation Bumetanide 2 mg 12/10/24 09:00 12/13/24 08:23 Bumetanide 1 Mg Tablet PO 2 mg DAILY [facility] Administration Heparin Sodium (Porcine) 5,000 units 12/10/24 09:00 12/10/24 14:34 Heparin Sodium 5,000 Units/Ml Vial SUB-Q Not Given Q12HR [facility] Hydralazine HCl 100 mg 12/10/24 09:00 12/13/24 08:22 Hydralazine Hcl 50 Mg Tablet PO 100 mg TID [facility] Administration Albumin Human 50 mls @ 999 mls/hr 12/10/24 00:29 Albutein IVPB 01/09/25 00:28 Q10M PRN HYPOTENSION Ceftriaxone Sodium 2 gm/ 100 mls @ 200 mls/hr 12/12/24 18:00 12/12/24 18:33 Sodium Chloride IVPB Infused Q24H [facility] Infusion Isosorbide Mononitrate 60 mg 12/10/24 20:00 12/13/24 05:13 Isosorbide Mononitrate 30 Mg Tab.Er.24h PO 60 mg TID@0600,1300,2000 [facility] Administration Metoprolol Tartrate 12.5 mg 12/10/24 21:00 12/13/24 08:23 Metoprolol Tartrate 12.5 Mg Tablet PO 12.5 mg Q12HR [facility] Administration Nifedipine 90 mg 12/10/24 09:00 12/13/24 08:22 Nifedipine 30 Mg Tab.Er.24 PO 90 mg DAILY [facility] Administration Nitroglycerin 0.4 mg 12/10/24 08:43 12/11/24 09:14 Nitroglycerin Sl 0.4 Mg Tablet SUBLINGUAL 0.4 mg Q5MIN PRN Administration Chest Pain Radiology Results: ITS Impressions Chest X-Ray 12/12/24 14:54 IMPRESSION: Small left-sided pleural effusion without focal infiltrate. Labs Labs: Laboratory Results - last 24 hr 12/12/24 12/13/24 20:26 07:35 WBC 4.6 RBC 2.63 L Hgb 7.7 L Hct 24.3 L MCV 92.4 MCH 29.3 MCHC 31.7 L RDW 14.7 H Plt Count 121 L MPV 10.2 Immature Gran % (Auto) 0.7 H Neut % (Auto) 53.1 Lymph % (Auto) 23.6 [place] % (Auto) 15.9 H Eos % (Auto) 6.3 H Baso % (Auto) 0.4 Lymph # (Auto) 1.08 [place] # (Auto) 0.7 H Eos # (Auto) 0.3 Baso # (Auto) 0.0 Abs Immat Gran (auto) 0.03 Absolute Neuts (auto) 2.4 Absolute Nucleated RBC 0.000 Nucleated RBC % 0.0 Sodium 139 Potassium 5.1 H Chloride 107 Carbon Dioxide 25 Anion Gap 7 BUN 43 H D Creatinine 8.76 H Estim Creat Clear Calc 9 Estimated GFR 6 L Glucose 91 Calcium 8.3 L Phosphorus 4.1 Albumin 3.3 L Urine Color Yellow Urine Appearance Clear Urine pH >=9.0 H Ur Specific [place] 1.010 Urine Protein 2+ H Urine Glucose (UA) Trace H Urine Ketones Negative Ur Blood (Man) 2+ H Urine Nitrate Negative Urine Bilirubin Negative Urine Urobilinogen 0.2 Ur Leukocyte Esterase Negative Urine RBC 11-20 H Urine WBC 0-5 Ur Squamous Epith Cells None seen Urine Bacteria None seen Urine Casts 0-2
--- NOTE | 2024-12-13 10:30 | P.PNNP_ITS ---
Progress Note: A&P Assessment and Plan (1) End stage renal disease: Code(s): N18.6 - End stage renal disease Status: Chronic Assessment and Plan: * HD yesterday * continue Sun/Sun/Sunday dialysis schedule while hospitalized * follow electrolytes, volume status, and clearance * outpatient dialysis unit = [facility] (2) Chest pain: Code(s): R07.9 - Chest pain, unspecified Status: Acute Assessment and Plan: * seems better * troponin trend and EKG noted * Cardiology recommendations noted * reschedule cardiac catheterization?? * continue ongoing medical management (3) SOB (shortness of breath): Code(s): R06.02 - Shortness of breath Status: Acute Assessment and Plan: * related to chest discomfort(?) * imaging without PVC or pulmonary edema * respiratory status following dialysis * no evidence of hypoxia * continue supportive therapy (4) Fever: Code(s): R50.9 - Fever, unspecified Status: Acute Assessment and Plan: * as noted since admission * associated with mildly elevated WBC * cultures pending * check viral studies * empiric antibiotics (5) Hypertension: Code(s): I10 - Essential (primary) hypertension Status: Chronic Assessment and Plan: * better at this time * resumed on home medications * fluid removal with HD may help to some degree * follow trend of hemodynamics (6) Anemia: Code(s): D64.9 - Anemia, unspecified Status: Chronic Assessment and Plan: * due to ESRD * Epogen with HD * follow trend of H/H (7) Polycystic kidney disease: Code(s): Q61.3 - Polycystic kidney, unspecified Status: Chronic Assessment and Plan: * known diagnosis * etiology of ESRD Will continue to follow. L Subjective Date/time seen: 12/13/24 10:30 Interval history: Follow-up for end stage renal disease on hemodialysis. Tolerated dialysis treatment yesterday without any issue or problems; no complaints of chest pain or shortness of breath at this time; low grade fever overnight (Tmax of 100.7?) but otherwise feels reasonably well. Exam 2 Narrative: General: WD/WN male in NAD Heart: normal S1 and S2; no rub Lungs: decreased at bases Abdomen: soft, nontender, nondistended, positive bowel sounds Extremities: no cyanosis or clubbing; no edema Skin: no rash Objective Data Vital Signs Vital Signs: Vital Signs Temp Pulse Resp BP Pulse Ox O2 Del Method 12/13/24 08:23 79 12/13/24 08:00 Room Air 12/13/24 08:00 99.0 F 80 18 139/82 100 12/13/24 05:14 99.2 F 79 20 137/88 99 12/13/24 04:00 77 12/13/24 00:38 98.0 F 77 16 120/79 99 12/13/24 00:00 80 12/12/24 22:23 99.3 F 12/12/24 21:33 100.7 F H 12/12/24 21:31 92 12/12/24 20:14 100.7 F H 93 16 173/96 H 98 12/12/24 20:00 92 12/12/24 16:00 99.4 F 97 22 H 139/85 99 12/12/24 16:00 89 Intake/Output Intake/Output: Intake & Output 12/10/24 12/11/24 12/12/24 12/13/24 23:59 23:59 23:59 23:59 Intake Total 920 452.5 1430 790 Output Total 3200 900 2200 770 Balance -2280 -447.5 -770 20 Meds/Results Medications: Active Medications Generic Name Dose Route Start Last Admin Trade Name Ahsan PRN Reason Stop Dose Admin Acetaminophen 650 mg 12/10/24 08:43 12/12/24 21:33 Acetaminophen 325 Mg Tablet PO 650 mg Q4H PRN Administration Mild Pain (1-3) or Fever Aspirin 81 mg 12/10/24 09:00 12/13/24 08:22 Aspirin 81 Mg Enteric Tablet PO 81 mg QAM TICO Administration Atorvastatin Calcium 40 mg 12/11/24 09:00 12/13/24 08:22 Atorvastatin 40 Mg Tablet PO 40 mg DAILY TICO Administration Bisacodyl 5 mg 12/10/24 08:43 Bisacodyl 5 Mg Tablet Ec PO DAILY PRN Constipation Bumetanide 2 mg 12/10/24 09:00 12/13/24 08:23 Bumetanide 1 Mg Tablet PO 2 mg DAILY TICO Administration Heparin Sodium (Porcine) 5,000 units 12/10/24 09:00 12/10/24 14:34 Heparin Sodium 5,000 Units/Ml Vial SUB-Q Not Given Q12HR TICO Hydralazine HCl 100 mg 12/10/24 09:00 12/13/24 12:54 Hydralazine Hcl 50 Mg Tablet PO 100 mg TID TICO Administration Albumin Human 50 mls @ 999 mls/hr 12/10/24 00:29 Albutein IVPB 01/09/25 00:28 Q10M PRN HYPOTENSION Ceftriaxone Sodium 2 gm/ 100 mls @ 200 mls/hr 12/12/24 18:00 12/12/24 18:33 Sodium Chloride IVPB Infused Q24H [facility] Infusion Isosorbide Mononitrate 60 mg 12/10/24 20:00 12/13/24 12:54 Isosorbide Mononitrate 30 Mg Tab.Er.24h PO 60 mg TID@0600,1300,2000 [facility] Administration Metoprolol Tartrate 25 mg 12/13/24 21:00 Metoprolol Tartrate 25 Mg Tablet PO Q12HR [facility] Nifedipine 90 mg 12/10/24 09:00 12/13/24 08:22 Nifedipine 30 Mg Tab.Er.24 PO 90 mg DAILY TICO Administration Nitroglycerin 0.4 mg 12/10/24 08:43 12/11/24 09:14 Nitroglycerin Sl 0.4 Mg Tablet SUBLINGUAL 0.4 mg Q5MIN PRN Administration Chest Pain Radiology Results: ITS Impressions Chest X-Ray 12/12/24 14:54 IMPRESSION: Small left-sided pleural effusion without focal infiltrate. Chest/Abdomen/Pelvis CT 12/13/24 14:13 IMPRESSION: CHEST: 1. No acute cardiopulmonary pathology. 2. Trace of effusion seen in the lung bases. Pleural thickening cannot be excluded. ABDOMEN/PELVIS: 1. Polycystic kidneys. 2. Multiple cysts in the liver. 3. Constipation. Labs Labs: Laboratory Tests 12/13/24 07:35 12/13/24 07:35 Calcium 8.3 L Phosphorus 4.1 Albumin 3.3 L
--- NOTE | 2024-12-13 11:38 | P.PNIM_ITS ---
Progress Note: A&P Assessment and Plan (1) Acute on chronic combined systolic and diastolic heart failure: Code(s): I50.43 - Acute on chronic combined systolic (congestive) and diastolic (congestive) heart failure Status: Acute (2) Hypertensive urgency: Code(s): I16.0 - Hypertensive urgency Status: Acute (3) Elevated troponin: Code(s): R77.8 - Other specified abnormalities of plasma proteins Status: Acute (4) Chest pain: Code(s): R07.9 - Chest pain, unspecified Status: Acute (5) ESRD (end stage renal disease) on dialysis: Code(s): N18.6 - End stage renal disease; Z99.2 - Dependence on renal dialysis Status: Acute (6) Chronic anemia: Code(s): D64.9 - Anemia, unspecified Status: Acute Plan Chest pain Elevated troponin x2 EKG shows sinus rhythm no specific ST T-wave changes Possible demand ischemia due to acute heart failure, also possible due to NSTEMI Continue aspirin 81 mg b.i.d. p.o., Imdur 30 mg daily p.o. nitroglycerin sublingual p.r.n. Pending echocardiogram radiation monitor consult software deployment engineer for evaluation treatment Cardiac catheterization today Acute on chronic combined heart failure Patient shortness breath, x-ray shows pulmonary congestion Resulting from fluid overload due to missing dialysis Provide Lasix 100 mg IV push once, Consult christmas tree farm manager for dialysis Hypertension urgency Continue hydralazine 100 mg t.i.d. p.o. Nifedipine 90 mg daily p.o. Labetalol IV p.r.n. Patient fluid overload 80 Consult christmas tree farm manager Chronic anemia No obvious bleeding Resulting from CKD Management per christmas tree farm manager Fever Patient has been having fever since yesterday evening, temperature 100.2? sustainability analyst 12/12 Pending blood culture Small left pleural effusion without focal infiltrate chest x-ray on 12/12 on ceftriaxone 2 g IV daily since 12/12 Urinalysis does not suggest your infection, Unclear sources of infection, pending CT chest abdomen pelvis Subjective Date/time seen: 12/13/24 11:38 Interval history: Patient feels tired today, denies chest pain abdomen pain, patient has a prior poor intake, patient has mild cough, Temperature 99? in the morning, headache fever 100.7 in the night Exam Narrative: GENERAL: Pleasant, in no acute distress. Well-nourished. - EYES: EOMI. Anicteric. - HENT: Moist mucous membranes. - LUNGS: Coarse breath sound bilaterall y. - CARDIOVASCULAR: Regular rate and rhyth m. No murmur. No JVD. - ABDOMEN: Soft, non-tender and non-dist ended. No palpable masses. - EXTREMITIES: No edema. Peripheral puls es 2+. Non-tender. - NEUROLOGIC: No focal neurological defi cits. CN II-XII grossly intact. - PSYCHIATRIC: Awake, Alert and oriented x 3. Appropriate mood and affect. - SKIN: No rashes or lesions. Warm. - LYMPH: No cervical lymphadenopathy. Objective Data Vital Signs Vital Signs: Vital Signs - 24 hr 12/12/24 11:50 12/12/24 12:00 12/12/24 16:00 Temperature Pulse Rate 96 90 89 Respiratory Rate Blood Pressure Pulse Oximetry Oxygen Delivery 12/12/24 16:00 12/12/24 20:00 12/12/24 20:14 Temperature 99.4 F 100.7 F H Pulse Rate 97 92 93 Respiratory Rate 22 H 16 Blood Pressure 139/85 173/96 H Pulse Oximetry 99 98 Oxygen Delivery 12/12/24 21:31 12/12/24 21:33 12/12/24 22:23 Temperature 100.7 F H 99.3 F Pulse Rate 92 Respiratory Rate Blood Pressure Pulse Oximetry Oxygen Delivery 12/13/24 00:00 12/13/24 00:38 12/13/24 04:00 Temperature 98.0 F Pulse Rate 80 77 77 Respiratory Rate 16 Blood Pressure 120/79 Pulse Oximetry 99 Oxygen Delivery 12/13/24 05:14 12/13/24 08:00 12/13/24 08:00 Temperature 99.2 F 99.0 F Pulse Rate 79 80 Respiratory Rate 20 18 Blood Pressure 137/88 139/82 Pulse Oximetry 99 100 Oxygen Delivery Room Air 12/13/24 08:23 Temperature Pulse Rate 79 Respiratory Rate Blood Pressure Pulse Oximetry Oxygen Delivery Intake/Output Intake/Output: Intake & Output 12/10/24 12/11/24 12/12/24 12/13/24 23:59 23:59 23:59 23:59 Intake Total 920 452.5 1430 790 Output Total 3200 900 2200 770 Balance -2280 -447.5 -770 20 Meds/Results Medications: Active Medications Generic Name Dose Route Start Last Admin Trade Name Waleq PRN Reason Stop Dose Admin Acetaminophen 650 mg 12/10/24 08:43 12/12/24 21:33 Acetaminophen 325 Mg Tablet PO 650 mg Q4H PRN Administration Mild Pain (1-3) or Fever Aspirin 81 mg 12/10/24 09:00 12/13/24 08:22 Aspirin 81 Mg Enteric Tablet PO 81 mg QAM TICO Administration Atorvastatin Calcium 40 mg 12/11/24 09:00 12/13/24 08:22 Atorvastatin 40 Mg Tablet PO 40 mg DAILY TICO Administration Bisacodyl 5 mg 12/10/24 08:43 Bisacodyl 5 Mg Tablet Ec PO DAILY PRN Constipation Bumetanide 2 mg 12/10/24 09:00 12/13/24 08:23 Bumetanide 1 Mg Tablet PO 2 mg DAILY TICO Administration Heparin Sodium (Porcine) 5,000 units 12/10/24 09:00 12/10/24 14:34 Heparin Sodium 5,000 Units/Ml Vial SUB-Q Not Given Q12HR [facility] Hydralazine HCl 100 mg 12/10/24 09:00 12/13/24 08:22 Hydralazine Hcl 50 Mg Tablet PO 100 mg TID [facility] Administration Albumin Human 50 mls @ 999 mls/hr 12/10/24 00:29 Albutein IVPB 01/09/25 00:28 Q10M PRN HYPOTENSION Ceftriaxone Sodium 2 gm/ 100 mls @ 200 mls/hr 12/12/24 18:00 12/12/24 18:33 Sodium Chloride IVPB Infused Q24H [facility] Infusion Isosorbide Mononitrate 60 mg 12/10/24 20:00 12/13/24 05:13 Isosorbide Mononitrate 30 Mg Tab.Er.24h PO 60 mg TID@0600,1300,2000 [facility] Administration Metoprolol Tartrate 25 mg 12/13/24 21:00 Metoprolol Tartrate 25 Mg Tablet PO Q12HR [facility] Nifedipine 90 mg 12/10/24 09:00 12/13/24 08:22 Nifedipine 30 Mg Tab.Er.24 PO 90 mg DAILY TICO Administration Nitroglycerin 0.4 mg 12/10/24 08:43 12/11/24 09:14 Nitroglycerin Sl 0.4 Mg Tablet SUBLINGUAL 0.4 mg Q5MIN PRN Administration Chest Pain Radiology Results: ITS Impressions Chest X-Ray 12/12/24 14:54 IMPRESSION: Small left-sided pleural effusion without focal infiltrate. Labs Labs: Laboratory Results - last 24 hr 12/12/24 12/13/24 20:26 07:35 WBC 4.6 RBC 2.63 L Hgb 7.7 L Hct 24.3 L MCV 92.4 MCH 29.3 MCHC 31.7 L RDW 14.7 H Plt Count 121 L MPV 10.2 Immature Gran % (Auto) 0.7 H Neut % (Auto) 53.1 Lymph % (Auto) 23.6 Bacon % (Auto) 15.9 H Eos % (Auto) 6.3 H Baso % (Auto) 0.4 Lymph # (Auto) 1.08 [place] # (Auto) 0.7 H Eos # (Auto) 0.3 Baso # (Auto) 0.0 Abs Immat Gran (auto) 0.03 Absolute Neuts (auto) 2.4 Absolute Nucleated RBC 0.000 Nucleated RBC % 0.0 Sodium 139 Potassium 5.1 H Chloride 107 Carbon Dioxide 25 Anion Gap 7 BUN 43 H D Creatinine 8.76 H Estim Creat Clear Calc 9 Estimated GFR 6 L Glucose 91 Calcium 8.3 L Phosphorus 4.1 Albumin 3.3 L Urine Color Yellow Urine Appearance Clear Urine pH >=9.0 H Ur Specific [place] 1.010 Urine Protein 2+ H Urine Glucose (UA) Trace H Urine Ketones Negative Ur Blood (Man) 2+ H Urine Nitrate Negative Urine Bilirubin Negative Urine Urobilinogen 0.2 Ur Leukocyte Esterase Negative Urine RBC 11-20 H Urine WBC 0-5 Ur Squamous Epith Cells None seen Urine Bacteria None seen Urine Casts 0-2
[2024-12-13] MEDS: SODIUM ZIRCONIUM CYCLOSILICATE 10 GM POWD.PACK PO (15:15)
[2024-12-13] MEDS: cefTRIAXone 2 GM in SODIUM CHLORIDE 0.9% IV 100 ML 200 ML IVPB (17:18)
[2024-12-13 19:38] LABS: Influenza A QL RT-PCR Negative (Negative); Influenza B QL RT-PCR Negative (Negative); RSV RNA, RT-PCR Negative (Negative); SARS-CoV-2 RNA PCR Negative (Negative)
[2024-12-13] MEDS: METOPROLOL TARTRATE 25 MG TABLET PO (21:04)
[2024-12-14] VITALS (12 sets, daily range): BP systolic 133–166; BP diastolic 83–92; PULSE 76–86; RESP 16–20; TEMP 36.6–37.7; O2SAT 96–100
[2024-12-14] MEDS: ISOSORBIDE MONONITRATE 30 MG TAB.ER.24H 60 MG PO ×2 (04:46→20:29)
[2024-12-14 06:36] LABS: Hematocrit 24.2 % (42.0-52.0); Hemoglobin 7.6 g/dL (14.0-18.0); Immature Granulocyte Percent A 0.7 % (0-0.5); Lymphocytes Absolute Auto 1.02 K/mm3 (0.9-3.2); Mean Corpuscular HGB Conc 31.4 g/dl (32-36); Mean Corpuscular Hemoglobin 29.1 pg (26-34); Mean Corpuscular Volume 92.7 fl (80-100); Nucleated Red Blood Cells Absolute Auto 0.000 K/mm3 (0.0-0.012); Nucleated Red Blood Cells Perc 0.0 % (0.0-0.2); Platelet Count Result 152 k/mm3 (150-375); Red Blood Count 2.61 M/mm3 (4.6-6.20); White Blood Count 4.6 K/mm3 (4.5-10.0)
[2024-12-14 07:16] LABS: Albumin Level 3.4 g/dL (3.5-5.1); Anion Gap 9 mmol/L (4-12); Blood Urea Nitrogen 54 mg/dL (9-20); Calcium 8.2 mg/dL (8.4-10.2); Carbon Dioxide 24 mmol/L (22-30); Chloride 105 mmol/L (98-107); Estimated CRCL calculation 8 ml/min; Estimated Glomerular Filt Rate 5; Glucose 113 mg/dL (65-110); Magnesium 2.2 mg/dL (1.6-2.3); Potassium 4.8 mmol/L (3.4-5.0); Sodium 138 mmol/L (137-145)
--- NOTE | 2024-12-14 07:38 | P.PNCA_ITS ---
Progress Note: A&P Assessment and Plan (1) Acute on chronic combined systolic and diastolic heart failure: Code(s): I50.43 - Acute on chronic combined systolic (congestive) and diastolic (congestive) heart failure Status: Acute (2) NSTEMI (non-ST elevated myocardial infarction): Code(s): I21.4 - Non-ST elevation (NSTEMI) myocardial infarction Status: Acute (3) Hypertensive urgency: Code(s): I16.0 - Hypertensive urgency Status: Acute Plan Acute on chronic systolic and diastolic heart failure secondary to missed dialysis- improved Hypertension NSTEMI- chest pain is resolved ESRD on HD with missed dialysis tomorrow Plan: - once again talked him but possibility of a catheterization. Previously fused but now is willing to pursue angiogram. He does have elevated temperatures of 100.7. Continue antibiotics and continue to look for signs of infection. - Keep NPO after midnight tonight for angiogram tomorrow assuming no clear active infection is found. White blood cell count is normal -Continue aspirin, statin -Sublingual nitro p.r.n. for chest pain -Blood pressure control with Imdur, hydralazine, nifedipine -tolerating higher dose metoprolol Subjective Date/time seen: 12/14/24 07:38 Interval history: Reason for encounter: NSTEMI, hypertensive urgency Relevant history: Patient continues to have off and on chest pain. Troponin has peaked. Blood pressure is better controlled. Telemetry shows sinus rhythm. Will Date of service 12/13/2024: He denies any chest pain at present. No shortness of breath. Feels pretty good at this stage. T-max though his 100.7 Date of service 12/14/2024: No chest pain. No shortness of breath. Resting comfortably Review of Systems Review of Systems: A complete review of systems was performed and negative other than those mentioned HPI All systems reviewed & are unremarkable except as noted in HPI and below Constitutional: Constitutional: Denies body ache(s) and Denies excessive sweating ENT: Denies Normal hearing present Cardiovascular: Cardiovascular: Denies chest pain Respiratory: Respiratory: Denies hemoptysis Gastrointestinal: Gastrointestinal: Denies abdominal pain Genitourinary: Genitourinary: Denies hematuria Musculoskeletal: Musculoskeletal: Denies myalgias Integumentary/Breasts: Skin/Breast: Denies erythema Neurologic: Denies Normal hearing present, Denies Abnormal speech present and Denies confusion Psychiatric: Psychiatric: Denies confusion Endocrine: Endocrine: Denies excessive sweating Hematologic/Lymphatic: Hematologic/Lymphatic: Denies easy bleeding Exam Narrative: General: Alert oriented x3, no acute distress Neck: Supple, no JVD Chest: Bilaterally clear to auscultation, no rales or rhonchi Cardiac: S1, S2 +, regular rate, regular rhythm, no murmurs or rubs Extremities: No pedal edema, no skin rash Neurologic: Alert and oriented x3, no focal neurological deficits Const: General: comfortable; No confusion Orientation/consciousness: No confusion HENMT: Ears: TM's normal bilaterally Face/Nose/Sinus: Normal nares present Eyes: General: appearance normal, both eyes and all related structures Sclera: sclerae normal Neck: Neck: supple and no JVD Resp: Effort & Inspection: normal respiratory effort Auscultation: clear to auscultation bilaterally Cardio: Rate: regular rate Rhythm: regular rhythm GI: Inspection: non-distended Skin: General skin exam: normal color Neuro: General: No confusion Cranial nerves: No Normal hearing present Speech: normal speech and No Abnormal speech present Sensory Exam: normal sensation Extrem: General: normal to inspection Psych: Mental Status: mental status grossly normal Objective Data Vital Signs Vital Signs: Vital Signs - 24 hr 12/13/24 08:00 12/13/24 08:00 12/13/24 08:00 Temperature 37.2 C Pulse Rate 80 81 Respiratory Rate 18 Blood Pressure 139/82 Pulse Oximetry 100 Oxygen Delivery Room Air Fraction of Inspired Oxygen 12/13/24 08:23 12/13/24 12:00 12/13/24 13:00 Temperature 36.8 C Pulse Rate 79 77 82 Respiratory Rate Blood Pressure 131/76 Pulse Oximetry 98 Oxygen Delivery Fraction of Inspired Oxygen 12/13/24 16:00 12/13/24 16:00 12/13/24 19:59 Temperature 37.3 C Pulse Rate 79 79 Respiratory Rate 18 Blood Pressure 142/88 H Pulse Oximetry 98 98 Oxygen Delivery Room Air Fraction of Inspired Oxygen 21 12/13/24 20:00 12/13/24 20:00 12/13/24 20:36 Temperature 36.3 C L Pulse Rate 89 99 Respiratory Rate 16 Blood Pressure 171/95 H Pulse Oximetry 93 Oxygen Delivery Room Air Fraction of Inspired Oxygen 12/14/24 00:00 12/14/24 00:53 12/14/24 01:33 Temperature 37.1 C 37.7 C H Pulse Rate 78 79 80 Respiratory Rate 20 16 Blood Pressure 142/91 H 146/91 H Pulse Oximetry 100 98 Oxygen Delivery Fraction of Inspired Oxygen 12/14/24 04:00 12/14/24 04:41 Temperature 36.9 C Pulse Rate 79 86 Respiratory Rate 20 Blood Pressure 166/83 H Pulse Oximetry 100 Oxygen Delivery Fraction of Inspired Oxygen Intake/Output Intake/Output: Intake & Output 12/11/24 12/12/24 12/13/24 12/14/24 23:59 23:59 23:59 23:59 Intake Total 452.5 1430 1920 550 Output Total 900 2200 970 Balance -447.5 -770 950 550 Meds/Results Medications: Active Medications Generic Name Dose Route Start Last Admin Trade Name Freq PRN Reason Stop Dose Admin Acetaminophen 650 mg 12/10/24 08:43 12/12/24 21:33 Acetaminophen 325 Mg Tablet PO 650 mg Q4H PRN Administration Mild Pain (1-3) or Fever Aspirin 81 mg 12/10/24 09:00 12/13/24 08:22 Aspirin 81 Mg Enteric Tablet PO 81 mg QAM TICO Administration Atorvastatin Calcium 40 mg 12/11/24 09:00 12/13/24 08:22 Atorvastatin 40 Mg Tablet PO 40 mg DAILY TICO Administration Bisacodyl 5 mg 12/10/24 08:43 Bisacodyl 5 Mg Tablet Ec PO DAILY PRN Constipation Bumetanide 2 mg 12/10/24 09:00 12/13/24 08:23 Bumetanide 1 Mg Tablet PO 2 mg DAILY [facility] Administration Heparin Sodium (Porcine) 5,000 units 12/10/24 09:00 12/10/24 14:34 Heparin Sodium 5,000 Units/Ml Vial SUB-Q Not Given Q12HR [facility] Hydralazine HCl 100 mg 12/10/24 09:00 12/13/24 17:18 Hydralazine Hcl 50 Mg Tablet PO 100 mg TID [facility] Administration Albumin Human 50 mls @ 999 mls/hr 12/10/24 00:29 Albutein IVPB 01/09/25 00:28 Q10M PRN HYPOTENSION Ceftriaxone Sodium 2 gm/ 100 mls @ 200 mls/hr 12/12/24 18:00 12/13/24 17:48 Sodium Chloride IVPB Infused Q24H [facility] Infusion Isosorbide Mononitrate 60 mg 12/10/24 20:00 12/14/24 04:46 Isosorbide Mononitrate 30 Mg Tab.Er.24h PO 60 mg TID@0600,1300,2000 [facility] Administration Metoprolol Tartrate 25 mg 12/13/24 21:00 12/13/24 21:04 Metoprolol Tartrate 25 Mg Tablet PO 25 mg Q12HR [facility] Administration Nifedipine 90 mg 12/10/24 09:00 12/13/24 08:22 Nifedipine 30 Mg Tab.Er.24 PO 90 mg DAILY [facility] Administration Nitroglycerin 0.4 mg 12/10/24 08:43 12/11/24 09:14 Nitroglycerin Sl 0.4 Mg Tablet SUBLINGUAL 0.4 mg Q5MIN PRN Administration Chest Pain Radiology Results: ITS Impressions Chest X-Ray 12/12/24 14:54 IMPRESSION: Small left-sided pleural effusion without focal infiltrate. Chest/Abdomen/Pelvis CT 12/13/24 14:13 IMPRESSION: CHEST: 1. No acute cardiopulmonary pathology. 2. Trace of effusion seen in the lung bases. Pleural thickening cannot be excluded. ABDOMEN/PELVIS: 1. Polycystic kidneys. 2. Multiple cysts in the liver. 3. Constipation. Labs Labs: Laboratory Results - last 24 hr 12/13/24 12/13/24 12/14/24 07:35 18:58 05:33 WBC 4.6 4.6 RBC 2.63 L 2.61 L Hgb 7.7 L 7.6 L Hct 24.3 L 24.2 L MCV 92.4 92.7 MCH 29.3 29.1 MCHC 31.7 L 31.4 L RDW 14.7 H 14.8 H Plt Count 121 L 152 MPV 10.2 10.6 H Immature Gran % (Auto) 0.7 H 0.7 H Neut % (Auto) 53.1 56.9 Lymph % (Auto) 23.6 22.3 [place] % (Auto) 15.9 H 13.6 H Eos % (Auto) 6.3 H 6.1 H Baso % (Auto) 0.4 0.4 Lymph # (Auto) 1.08 1.02 [place] # (Auto) 0.7 H 0.6 Eos # (Auto) 0.3 0.3 Baso # (Auto) 0.0 0.0 Abs Immat Gran (auto) 0.03 0.03 Absolute Neuts (auto) 2.4 2.6 Absolute Nucleated RBC 0.000 0.000 Nucleated RBC % 0.0 0.0 Sodium 139 138 Potassium 5.1 H 4.8 Chloride 107 105 Carbon Dioxide 25 24 Anion Gap 7 9 BUN 43 H D 54 H D Creatinine 8.76 H 10.43 H Estim Creat Clear Calc 9 8 Estimated GFR 6 L 5 L Glucose 91 113 H Calcium 8.3 L 8.2 L Phosphorus 4.1 4.5 Magnesium 2.2 Albumin 3.3 L 3.4 L Influenza A (RT-PCR) Negative Influenza B (RT-PCR) Negative RSV (RT-PCR) Negative SARS-CoV-2 RNA (RT-PCR) Negative
[2024-12-14] MEDS: BUMETANIDE 1 MG TABLET 2 MG PO (08:23)
[2024-12-14] MEDS: ATORVASTATIN 40 MG TABLET PO (08:23)
[2024-12-14] MEDS: ASPIRIN 81 MG ENTERIC TABLET PO (08:23)
[2024-12-14] MEDS: METOPROLOL TARTRATE 25 MG TABLET PO ×2 (08:23→20:29)
--- NOTE | 2024-12-14 08:38 | PM.IMPN ---
Progress Note: A&P Assessment and Plan (1) Acute on chronic combined systolic and diastolic heart failure: Code(s): I50.43 - Acute on chronic combined systolic (congestive) and diastolic (congestive) heart failure Status: Acute (2) Hypertensive urgency: Code(s): I16.0 - Hypertensive urgency Status: Acute (3) Elevated troponin: Code(s): R77.8 - Other specified abnormalities of plasma proteins Status: Acute (4) Chest pain: Code(s): R07.9 - Chest pain, unspecified Status: Acute (5) ESRD (end stage renal disease) on dialysis: Code(s): N18.6 - End stage renal disease; Z99.2 - Dependence on renal dialysis Status: Acute (6) Chronic anemia: Code(s): D64.9 - Anemia, unspecified Status: Acute Plan Chest pain Elevated troponin x2 EKG shows sinus rhythm no specific ST T-wave changes Possible demand ischemia due to acute heart failure, also possible due to NSTEMI Continue aspirin 81 mg b.i.d. p.o., Imdur 30 mg daily p.o. nitroglycerin sublingual p.r.n. Pending echocardiogram commercial lines underwriter consult chip drier for evaluation treatment Cardiac catheterization today Acute on chronic combined heart failure Patient shortness breath, x-ray shows pulmonary congestion Resulting from fluid overload due to missing dialysis Provide Lasix 100 mg IV push once, Consult gas operations analyst for dialysis Hypertension urgency Continue hydralazine 100 mg t.i.d. p.o. Nifedipine 90 mg daily p.o. Labetalol IV p.r.n. Patient fluid overload 80 Consult gas operations analyst Chronic anemia No obvious bleeding Resulting from CKD Management per gas operations analyst Fever Patient has been having fever since yesterday evening, temperature 100.2? 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 Continue ceftriaxone and add vancomycin, blood culture pending, pending respiratory pathogen panel 12/14 Subjective Date/time seen: 12/14/24 08:38 Interval history: I saw exam patient today, patient feels better today, appetite improving. Patient denies chest pain shortness breast abdomen pain nausea vomiting diarrhea. Patient has temperature 99.9? in the night Blood culture pending Exam Narrative: GENERAL: Pleasant, in no acute distress. Well-nourished. - EYES: EOMI. Anicteric. - HENT: Moist mucous membranes. - LUNGS: Coarse breath sound bilaterally. - CARDIOVASCULAR: Regular rate and rhythm. No murmur. No JVD. - ABDOMEN: Soft, non-tender and non-distended. No palpable masses. - EXTREMITIES: No edema. Peripheral pulses 2+. Non-tender. - NEUROLOGIC: No focal neurological deficits. CN II-XII grossly intact. - PSYCHIATRIC: Awake, Alert and oriented x 3. Appropriate mood and affect. - SKIN: No rashes or lesions. Warm. - LYMPH: No cervical lymphadenopathy. Objective Data Vital Signs Vital Signs: Vital Signs - 24 hr 12/13/24 12:00 12/13/24 13:00 12/13/24 16:00 Temperature 98.2 F 99.1 F Pulse Rate 77 82 79 Respiratory Rate 18 Blood Pressure 131/76 142/88 H Pulse Oximetry 98 98 Oxygen Delivery Fraction of Inspired Oxygen 12/13/24 16:00 12/13/24 19:59 12/13/24 20:00 Temperature Pulse Rate 79 Respiratory Rate Blood Pressure Pulse Oximetry 98 Oxygen Delivery Room Air Room Air Fraction of Inspired Oxygen 21 12/13/24 20:00 12/13/24 20:36 12/14/24 00:00 Temperature 97.4 F L Pulse Rate 89 99 78 Respiratory Rate 16 Blood Pressure 171/95 H Pulse Oximetry 93 Oxygen Delivery Fraction of Inspired Oxygen 12/14/24 00:53 12/14/24 01:33 12/14/24 04:00 Temperature 98.8 F 99.9 F H Pulse Rate 79 80 79 Respiratory Rate 20 16 Blood Pressure 142/91 H 146/91 H Pulse Oximetry 100 98 Oxygen Delivery Fraction of Inspired Oxygen 12/14/24 04:41 12/14/24 08:23 Temperature 98.4 F Pulse Rate 86 78 Respiratory Rate 20 Blood Pressure 166/83 H Pulse Oximetry 100 Oxygen Delivery Fraction of Inspired Oxygen Intake/Output Intake/Output: Intake & Output 12/11/24 12/12/24 12/13/24 12/14/24 23:59 23:59 23:59 23:59 Intake Total 452.5 1430 1920 550 Output Total 900 2200 970 Balance -447.5 -770 950 550 Meds/Results Medications: Active Medications Generic Name Dose Route Start Last Admin Trade Name Freq PRN Reason Stop Dose Admin Acetaminophen 650 mg 12/10/24 08:43 12/12/24 21:33 Acetaminophen 325 Mg Tablet PO 650 mg Q4H PRN Administration Mild Pain (1-3) or Fever Aspirin 81 mg 12/10/24 09:00 12/14/24 08:23 Aspirin 81 Mg Enteric Tablet PO 81 mg QAM TICO Administration Atorvastatin Calcium 40 mg 12/11/24 09:00 12/14/24 08:23 Atorvastatin 40 Mg Tablet PO 40 mg DAILY TICO Administration Bisacodyl 5 mg 12/10/24 08:43 Bisacodyl 5 Mg Tablet Ec PO DAILY PRN Constipation Bumetanide 2 mg 12/10/24 09:00 12/14/24 08:23 Bumetanide 1 Mg Tablet PO 2 mg DAILY TICO Administration Heparin Sodium (Porcine) 5,000 units 12/10/24 09:00 12/10/24 14:34 Heparin Sodium 5,000 Units/Ml Vial SUB-Q Not Given Q12HR TICO Hydralazine HCl 100 mg 12/10/24 09:00 12/13/24 17:18 Hydralazine Hcl 50 Mg Tablet PO 100 mg TID TICO Administration Albumin Human 50 mls @ 999 mls/hr 12/10/24 00:29 Albutein IVPB 01/09/25 00:28 Q10M PRN HYPOTENSION Ceftriaxone Sodium 2 gm/ 100 mls @ 200 mls/hr 12/12/24 18:00 12/13/24 17:48 Sodium Chloride IVPB Infused Q24H TICO Infusion Isosorbide Mononitrate 60 mg 12/10/24 20:00 12/14/24 04:46 Isosorbide Mononitrate 30 Mg Tab.Er.24h PO 60 mg TID@0600,1300,2000 TICO Administration Metoprolol Tartrate 25 mg 12/13/24 21:00 12/14/24 08:23 Metoprolol Tartrate 25 Mg Tablet PO 25 mg Q12HR TICO Administration Nifedipine 90 mg 12/10/24 09:00 12/14/24 08:23 Nifedipine 30 Mg Tab.Er.24 PO 90 mg DAILY TICO Administration Nitroglycerin 0.4 mg 12/10/24 08:43 12/11/24 09:14 Nitroglycerin Sl 0.4 Mg Tablet SUBLINGUAL 0.4 mg Q5MIN PRN Administration Chest Pain Radiology Results: ITS Impressions Chest X-Ray 12/12/24 14:54 IMPRESSION: Small left-sided pleural effusion without focal infiltrate. Chest/Abdomen/Pelvis CT 12/13/24 14:13 IMPRESSION: CHEST: 1. No acute cardiopulmonary pathology. 2. Trace of effusion seen in the lung bases. Pleural thickening cannot be excluded. ABDOMEN/PELVIS: 1. Polycystic kidneys. 2. Multiple cysts in the liver. 3. Constipation. Labs Labs: Laboratory Results - last 24 hr 12/13/24 12/14/24 18:58 05:33 WBC 4.6 RBC 2.61 L Hgb 7.6 L Hct 24.2 L MCV 92.7 MCH 29.1 MCHC 31.4 L RDW 14.8 H Plt Count 152 MPV 10.6 H Immature Gran % (Auto) 0.7 H Neut % (Auto) 56.9 Lymph % (Auto) 22.3 Crowley % (Auto) 13.6 H Eos % (Auto) 6.1 H Baso % (Auto) 0.4 Lymph # (Auto) 1.02 Crowley # (Auto) 0.6 Eos # (Auto) 0.3 Baso # (Auto) 0.0 Abs Immat Gran (auto) 0.03 Absolute Neuts (auto) 2.6 Absolute Nucleated RBC 0.000 Nucleated RBC % 0.0 Sodium 138 Potassium 4.8 Chloride 105 Carbon Dioxide 24 Anion Gap 9 BUN 54 H D Creatinine 10.43 H Estim Creat Clear Calc 8 Estimated GFR 5 L Glucose 113 H Calcium 8.2 L Phosphorus 4.5 Magnesium 2.2 Albumin 3.4 L Influenza A (RT-PCR) Negative Influenza B (RT-PCR) Negative RSV (RT-PCR) Negative SARS-CoV-2 RNA (RT-PCR) Negative
[2024-12-14] MEDS: VANCOMYCIN 1,750 MG/NS 500 ML 1,750 MG/500 ML BAG 250 MG IVPB (11:04)
[2024-12-14] MEDS: CALCIUM ACETATE 667 MG TABLET PO ×2 (11:08→17:31)
[2024-12-14] MEDS: CHOLECALCIFEROL (VITAMIN D3) 125 MCG (5,000 UNITS) TABLET 250 MCG PO (11:08)
--- NOTE | 2024-12-14 11:45 | P.PNNP_ITS ---
Progress Note: A&P Assessment and Plan (1) End stage renal disease: Code(s): N18.6 - End stage renal disease Status: Chronic Assessment and Plan: * HD tomorrow * continue Sun/Sun/Sunday dialysis schedule while hospitalized * follow electrolytes, volume status, and clearance * outpatient dialysis unit = [facility] (2) Chest pain: Code(s): R07.9 - Chest pain, unspecified Status: Acute Assessment and Plan: * seems better * troponin trend and EKG noted * Cardiology recommendations noted * cardiac catheterization tentatively scheduled for tomorr/Sunday * continue ongoing medical management (3) SOB (shortness of breath): Code(s): R06.02 - Shortness of breath Status: Acute Assessment and Plan: * related to chest discomfort(?) * imaging without PVC or pulmonary edema * respiratory status following dialysis * no evidence of hypoxia * continue supportive therapy (4) Fever: Code(s): R50.9 - Fever, unspecified Status: Acute Assessment and Plan: * as noted since admission * associated with mildly elevated WBC * cultures negative today * viral studies results negative as well * CT of C/A/P unrevealing * empiric antibiotics (5) Hypertension: Code(s): I10 - Essential (primary) hypertension Status: Chronic Assessment and Plan: * better at this time * resumed on home medications * fluid removal with HD may help to some degree * follow trend of hemodynamics (6) Anemia: Code(s): D64.9 - Anemia, unspecified Status: Chronic Assessment and Plan: * due to ESRD * Epogen with HD * follow trend of H/H (7) Polycystic kidney disease: Code(s): Q61.3 - Polycystic kidney, unspecified Status: Chronic Assessment and Plan: * known diagnosis * etiology of ESRD Will continue to follow. L Subjective Date/time seen: 12/14/24 11:45 Interval history: Follow-up for end stage renal disease on hemodialysis. No apparent distress noted at the time of visit; evaluation for low grade fevers has been unrevealing (viral panel and CT C/A/P were negative) but remains on empiric antibiotics; Tmax of 99.9 in the last 24 hours; no other events overnight or earlier this morning. Exam 2 Narrative: General: WD/WN male in NAD Heart: normal S1 and S2; no rub Lungs: decreased at bases Abdomen: soft, nontender, nondistended, positive bowel sounds Extremities: no cyanosis or clubbing; no edema Skin: no nodules Objective Data Vital Signs Vital Signs: Vital Signs Temp Pulse Resp BP Pulse Ox O2 Del Method FiO2 12/14/24 08:23 78 12/14/24 08:00 Room Air 12/14/24 08:00 99.1 F 76 18 135/86 99 12/14/24 04:41 98.4 F 86 20 166/83 H 100 12/14/24 04:00 79 12/14/24 01:33 99.9 F H 80 16 146/91 H 98 12/14/24 00:53 98.8 F 79 20 142/91 H 100 12/14/24 00:00 78 12/13/24 20:36 97.4 F L 99 16 171/95 H 93 12/13/24 20:00 89 12/13/24 20:00 Room Air 12/13/24 19:59 98 Room Air 21 12/13/24 16:00 79 12/13/24 16:00 99.1 F 79 18 142/88 H 98 Intake/Output Intake/Output: Intake & Output 12/11/24 12/12/24 12/13/24 12/14/24 23:59 23:59 23:59 23:59 Intake Total 452.5 1430 1920 790 Output Total 900 2200 970 Balance -447.5 -770 950 790 Meds/Results Medications: Active Medications Generic Name Dose Route Start Last Admin Trade Name Waleq PRN Reason Stop Dose Admin Acetaminophen 650 mg 12/10/24 08:43 12/12/24 21:33 Acetaminophen 325 Mg Tablet PO 650 mg Q4H PRN Administration Mild Pain (1-3) or Fever Aspirin 81 mg 12/10/24 09:00 12/14/24 08:23 Aspirin 81 Mg Enteric Tablet PO 81 mg QAM TICO Administration Atorvastatin Calcium 40 mg 12/11/24 09:00 12/14/24 08:23 Atorvastatin 40 Mg Tablet PO 40 mg DAILY TICO Administration Bisacodyl 5 mg 12/10/24 08:43 Bisacodyl 5 Mg Tablet Ec PO DAILY PRN Constipation Bumetanide 2 mg 12/10/24 09:00 12/14/24 08:23 Bumetanide 1 Mg Tablet PO 2 mg DAILY TICO Administration Calcium Acetate 667 mg 12/14/24 08:00 12/14/24 12:44 Calcium Acetate 667 Mg Tablet PO Not Given TIDWM [facility] Heparin Sodium (Porcine) 5,000 units 12/10/24 09:00 12/10/24 14:34 Heparin Sodium 5,000 Units/Ml Vial SUB-Q Not Given Q12HR [facility] Hydralazine HCl 100 mg 12/10/24 09:00 12/14/24 11:04 Hydralazine Hcl 50 Mg Tablet PO 100 mg TID [facility] Administration Albumin Human 50 mls @ 999 mls/hr 12/10/24 00:29 Albutein IVPB 01/09/25 00:28 Q10M PRN HYPOTENSION Ceftriaxone Sodium 2 gm/ 100 mls @ 200 mls/hr 12/12/24 18:00 12/13/24 17:48 Sodium Chloride IVPB Infused Q24H [facility] Infusion Isosorbide Mononitrate 60 mg 12/10/24 20:00 12/14/24 04:46 Isosorbide Mononitrate 30 Mg Tab.Er.24h PO 60 mg TID@0600,1300,2000 [facility] Administration Metoprolol Tartrate 25 mg 12/13/24 21:00 12/14/24 08:23 Metoprolol Tartrate 25 Mg Tablet PO 25 mg Q12HR TICO Administration Nifedipine 90 mg 12/10/24 09:00 12/14/24 08:23 Nifedipine 30 Mg Tab.Er.24 PO 90 mg DAILY TICO Administration Nitroglycerin 0.4 mg 12/10/24 08:43 12/11/24 09:14 Nitroglycerin Sl 0.4 Mg Tablet SUBLINGUAL 0.4 mg Q5MIN PRN Administration Chest Pain Vancomycin HCl 1 each 12/14/24 08:58 Vancomycin For Hemodialysis IVPB PRN PRN Vancomycin Protocol Vitamin D 250 mcg 12/14/24 09:00 12/14/24 11:08 Cholecalciferol (Vitamin D3) 125 Mcg (5,000 Units) Tablet PO 250 mcg DAILY TICO Administration Radiology Results: ITS Impressions Chest X-Ray 12/12/24 14:54 IMPRESSION: Small left-sided pleural effusion without focal infiltrate. Chest/Abdomen/Pelvis CT 12/13/24 14:13 IMPRESSION: CHEST: 1. No acute cardiopulmonary pathology. 2. Trace of effusion seen in the lung bases. Pleural thickening cannot be excluded. ABDOMEN/PELVIS: 1. Polycystic kidneys. 2. Multiple cysts in the liver. 3. Constipation. Labs Labs: Laboratory Tests 12/14/24 05:33 12/14/24 05:33 Calcium 8.2 L Phosphorus 4.5 Magnesium 2.2 Albumin 3.4 L
[2024-12-14] MEDS: cefTRIAXone 2 GM in SODIUM CHLORIDE 0.9% IV 100 ML 200 ML IVPB (17:32)
[2024-12-15] VITALS (32 sets, daily range): BP systolic 127–219; BP diastolic 57–99; PULSE 6–105; RESP 14–20; TEMP 36.4–37; O2SAT 96–100
[2024-12-15] MEDS: ISOSORBIDE MONONITRATE 30 MG TAB.ER.24H 60 MG PO ×3 (05:16→20:01)
[2024-12-15 05:58] LABS: Hematocrit 24.3 % (42.0-52.0); Hemoglobin 7.7 g/dL (14.0-18.0); Immature Granulocyte Percent A 0.4 % (0-0.5); Lymphocytes Absolute Auto 1.40 K/mm3 (0.9-3.2); Mean Corpuscular HGB Conc 31.7 g/dl (32-36); Mean Corpuscular Hemoglobin 28.9 pg (26-34); Mean Corpuscular Volume 91.4 fl (80-100); Nucleated Red Blood Cells Absolute Auto 0.000 K/mm3 (0.0-0.012); Nucleated Red Blood Cells Perc 0.0 % (0.0-0.2); Platelet Count Result 166 k/mm3 (150-375); Red Blood Count 2.66 M/mm3 (4.6-6.20); White Blood Count 4.8 K/mm3 (4.5-10.0)
[2024-12-15 06:17] LABS: Albumin Level 3.4 g/dL (3.5-5.1); Anion Gap 11 mmol/L (4-12); Blood Urea Nitrogen 65 mg/dL (9-20); Calcium 8.4 mg/dL (8.4-10.2); Carbon Dioxide 19 mmol/L (22-30); Chloride 108 mmol/L (98-107); Estimated CRCL calculation 7 ml/min; Estimated Glomerular Filt Rate 4; Glucose 88 mg/dL (65-110); Magnesium 2.2 mg/dL (1.6-2.3); Potassium 4.7 mmol/L (3.4-5.0); Sodium 138 mmol/L (137-145)
[2024-12-15] MEDS: ASPIRIN 81 MG ENTERIC TABLET PO (10:15)
--- NOTE | 2024-12-15 11:20 | PM.IMPN ---
Progress Note: A&P Assessment and Plan (1) Acute on chronic combined systolic and diastolic heart failure: Code(s): I50.43 - Acute on chronic combined systolic (congestive) and diastolic (congestive) heart failure Status: Acute (2) Hypertensive urgency: Code(s): I16.0 - Hypertensive urgency Status: Acute (3) Elevated troponin: Code(s): R77.8 - Other specified abnormalities of plasma proteins Status: Acute (4) Chest pain: Code(s): R07.9 - Chest pain, unspecified Status: Acute (5) ESRD (end stage renal disease) on dialysis: Code(s): N18.6 - End stage renal disease; Z99.2 - Dependence on renal dialysis Status: Acute (6) Chronic anemia: Code(s): D64.9 - Anemia, unspecified Status: Acute Plan Chest pain Elevated troponin x2 EKG shows sinus rhythm no specific ST T-wave changes Possible demand ischemia due to acute heart failure, also possible due to NSTEMI Continue aspirin 81 mg b.i.d. p.o., Imdur 30 mg daily p.o. nitroglycerin sublingual p.r.n. Pending echocardiogram monitoring coordinator consult area relief pilot for evaluation treatment Cardiac catheterization today showed patent coronary artery Acute on chronic combined heart failure Patient shortness breath, x-ray shows pulmonary congestion Resulting from fluid overload due to missing dialysis Provide Lasix 100 mg IV push once, Consult estimator printing for dialysis Hypertension urgency Continue hydralazine 100 mg t.i.d. p.o. Nifedipine 90 mg daily p.o. Labetalol IV p.r.n. Patient fluid overload 80 Consult estimator printing Chronic anemia No obvious bleeding Resulting from CKD Management per estimator printing Fever Patient has been having fever since yesterday evening, temperature 100.2? relations specialist 12/12 Pending blood culture Small left pleural effusion without focal infiltrate chest x-ray on 12/12 on ceftriaxone 2 g IV daily since 12/12 Urinalysis does not suggest your infection, Unclear sources of infection 12/13 CT chest abdomen pelvis did not show pneumonia, abscess, diverticulitis obvious source infection Had low-grade fever 99.9 in the night. On ceftriaxone and add vancomycin, pending respiratory pathogen panel 12/14 blood culture no growth so far, patient is afebrile, changed to Augmentin p.o. 12/15 Subjective Date/time seen: 12/15/24 11:20 Interval history: I saw exam patient today, Patient underwent cardiac catheterization today, without complication. Patient has patent coronary artery Patient also denies chest pain shortness breast fever or chills. Exam Narrative: GENERAL: Pleasant, in no acute distress. Well-nourished. - EYES: EOMI. Anicteric. - HENT: Moist mucous membranes. - LUNGS: Coarse breath sound bilaterally. - CARDIOVASCULAR: Regular rate and rhythm. No murmur. No JVD. - ABDOMEN: Soft, non-tender and non-distended. No palpable masses. - EXTREMITIES: No edema. Peripheral pulses 2+. Non-tender. - NEUROLOGIC: No focal neurological deficits. CN II-XII grossly intact. - PSYCHIATRIC: Awake, Alert and oriented x 3. Appropriate mood and affect. - SKIN: No rashes or lesions. Warm. - LYMPH: No cervical lymphadenopathy. Objective Data Vital Signs Vital Signs: Vital Signs - 24 hr 12/14/24 12:00 12/14/24 12:00 12/14/24 16:00 Temperature 98.7 F 98.7 F Pulse Rate 85 77 79 Respiratory Rate 18 18 Blood Pressure 133/84 134/85 Pulse Oximetry 98 99 Oxygen Delivery Fraction of Inspired Oxygen 12/14/24 16:00 12/14/24 19:49 12/14/24 19:50 Temperature 97.9 F Pulse Rate 80 85 84 Respiratory Rate 20 16 Blood Pressure 144/92 H Pulse Oximetry 96 100 Oxygen Delivery Room Air Fraction of Inspired Oxygen 21 12/14/24 20:00 12/14/24 20:00 12/15/24 00:00 Temperature Pulse Rate 84 77 Respiratory Rate Blood Pressure Pulse Oximetry Oxygen Delivery Room Air Fraction of Inspired Oxygen 12/15/24 00:30 12/15/24 04:00 12/15/24 04:00 Temperature 98.1 F 98.1 F Pulse Rate 78 80 83 Respiratory Rate 16 16 Blood Pressure 148/91 H 152/99 H Pulse Oximetry 99 97 Oxygen Delivery Fraction of Inspired Oxygen 12/15/24 08:00 12/15/24 08:18 12/15/24 08:30 Temperature 97.9 F Pulse Rate 85 60 6 L Respiratory Rate 18 Blood Pressure 154/96 H 127/57 L Pulse Oximetry 98 Oxygen Delivery Fraction of Inspired Oxygen Intake/Output Intake/Output: Intake & Output 07/11/25 07/12/25 07/13/25 07/14/25 23:59 23:59 23:59 23:59 Intake Total 1430 1920 1330 350 Output Total 2200 970 500 Balance -883 851 3999 -150 Meds/Results Medications: Active Medications Generic Name Dose Route Start Last Admin Trade Name Waleq PRN Reason Stop Dose Admin Acetaminophen 650 mg 12/10/24 08:43 12/12/24 21:33 Acetaminophen 325 Mg Tablet PO 650 mg Q4H PRN Administration Mild Pain (1-3) or Fever Aspirin 81 mg 12/10/24 09:00 12/15/24 10:15 Aspirin 81 Mg Enteric Tablet PO 81 mg QAM TICO Administration Atorvastatin Calcium 40 mg 12/11/24 09:00 12/14/24 08:23 Atorvastatin 40 Mg Tablet PO 40 mg DAILY TICO Administration Bisacodyl 5 mg 12/10/24 08:43 Bisacodyl 5 Mg Tablet Ec PO DAILY PRN Constipation Bumetanide 2 mg 12/10/24 09:00 12/14/24 08:23 Bumetanide 1 Mg Tablet PO 2 mg DAILY TICO Administration Calcium Acetate 667 mg 12/14/24 08:00 12/14/24 17:31 Calcium Acetate 667 Mg Tablet PO 667 mg TIDWM TICO Administration Epoetin Iggy-epbx 10,000 units 12/15/24 18:14 Epoetin Iggy-Epbx 10,000 Units/Ml Vial IV PUSH 12/15/24 18:15 ONCE ONE Heparin Sodium (Porcine) 5,000 units 12/10/24 09:00 12/10/24 14:34 Heparin Sodium 5,000 Units/Ml Vial SUB-Q Not Given Q12HR TICO Hydralazine HCl 100 mg 12/10/24 09:00 12/14/24 17:31 Hydralazine Hcl 50 Mg Tablet PO 100 mg TID TICO Administration Albumin Human 50 mls @ 999 mls/hr 12/10/24 00:29 Albutein IVPB 01/09/25 00:28 Q10M PRN HYPOTENSION Ceftriaxone Sodium 2 gm/ 100 mls @ 200 mls/hr 12/12/24 18:00 12/14/24 17:32 Sodium Chloride IVPB 200 mls/hr Q24H TICO Administration Vancomycin HCl 750 mg in 250 mls @ 250 mls/hr 12/15/24 20:00 Vancomycin 750 Mg/Ns 250 Ml IVPB 12/15/24 20:59 ONCE ONE Isosorbide Mononitrate 60 mg 12/10/24 20:00 12/15/24 05:16 Isosorbide Mononitrate 30 Mg Tab.Er.24h PO 60 mg TID@0600,1300,2000 TICO Administration Metoprolol Tartrate 25 mg 12/13/24 21:00 12/14/24 20:29 Metoprolol Tartrate 25 Mg Tablet PO 25 mg Q12HR TICO Administration Nifedipine 90 mg 12/10/24 09:00 12/14/24 08:23 Nifedipine 30 Mg Tab.Er.24 PO 90 mg DAILY TICO Administration Nitroglycerin 0.4 mg 12/10/24 08:43 12/11/24 09:14 Nitroglycerin Sl 0.4 Mg Tablet SUBLINGUAL 0.4 mg Q5MIN PRN Administration Chest Pain Vancomycin HCl 1 each 12/14/24 08:58 Vancomycin For Hemodialysis IVPB PRN PRN Vancomycin Protocol Vitamin D 250 mcg 12/14/24 09:00 12/14/24 11:08 Cholecalciferol (Vitamin D3) 125 Mcg (5,000 Units) Tablet PO 250 mcg DAILY TICO Administration Radiology Results: ITS Impressions Chest X-Ray 12/12/24 14:54 IMPRESSION: Small left-sided pleural effusion without focal infiltrate. Chest/Abdomen/Pelvis CT 12/13/24 14:13 IMPRESSION: CHEST: 1. No acute cardiopulmonary pathology. 2. Trace of effusion seen in the lung bases. Pleural thickening cannot be excluded. ABDOMEN/PELVIS: 1. Polycystic kidneys. 2. Multiple cysts in the liver. 3. Constipation. Labs Labs: Laboratory Results - last 24 hr 12/14/24 12/15/24 18:21 05:39 WBC 4.8 RBC 2.66 L Hgb 7.7 L Hct 24.3 L MCV 91.4 MCH 28.9 MCHC 31.7 L RDW 15.0 H Plt Count 166 MPV 9.3 Immature Gran % (Auto) 0.4 Neut % (Auto) 51.9 Lymph % (Auto) 29.2 [place] % (Auto) 12.5 H Eos % (Auto) 5.6 H Baso % (Auto) 0.4 Lymph # (Auto) 1.40 [place] # (Auto) 0.6 Eos # (Auto) 0.3 Baso # (Auto) 0.0 Abs Immat Gran (auto) 0.02 Absolute Neuts (auto) 2.5 Absolute Nucleated RBC 0.000 Nucleated RBC % 0.0 Sodium 138 Potassium 4.7 Chloride 108 H Carbon Dioxide 19 L Anion Gap 11 BUN 65 H D Creatinine 12.11 H Estim Creat Clear Calc 7 Estimated GFR 4 L Glucose 88 Calcium 8.4 Phosphorus 4.8 H Magnesium 2.2 Albumin 3.4 L Nasal RSV Type A (PCR) Cancelled Nasal RSV Type B (PCR) Cancelled Random Vancomycin 16.5 Chlamy pneumoniae PCR Cancelled Adenovirus DNA Cancelled Human Bocavirus (DANNY) Cancelled Coronavirus Type OC43 Cancelled Coronavirus Type HKU1 Cancelled Coronavirus Type 229E Cancelled Coronavirus Type NL63 Cancelled Human Metapneumovir PCR Cancelled Influenza A (PCR) Cancelled Influenza A (H1) RNA Cancelled Influenza A (H3) PCR Cancelled M. pneumoniae DNA Cancelled Parainfluenza PCR Cancelled Parainfluenza 2 (PCR) Cancelled Parainfluenza 3 RNA (PCR) Cancelled Parainfluenza 4 (PCR) Cancelled Rhino/Enterovirus (DANNY) Cancelled SARS-CoV-2 RNA (RT-PCR) Cancelled Influenza Type B (PCR) [facility]ancelled [facility] Test Comment Cancelled
--- NOTE | 2024-12-15 11:44 | WPDCARDPROC ---
Cardiac Cath Procedure Note Date of procedure:: 12/15/24 Performing physician:: CATHETERIZATION LABORATORY REPORT Procedure Date: 12/15/2024 Referring Physician:Dr. Jeronimo Anesthesia: Versed and Fentanyl were ordered and given in my presence at 1129, procedure ended at 1140. Supervision of nurse, Clemente Vicente monitored moderate sedation with 2mg Versed and 100mcg Fentanyl was provided for 11 minutes. Pre-op Diagnosis: Chest pain Post-op Diagnosis: Chest pain Procedure(s): Left heart catheterization with coronary angiography Access Site: Right radial artery Brief History and Clinical Indications: 59-year-old man with ESRD on hemodialysis and hypertension presented with chest pain whose clinical presentation was concerning for unstable angina for which a cardiac catheterization with possible PCI is recommended All risks, benefits and alternatives to left heart catheterization with or without percutaneous coronary intervention was discussed at length with the patient. Risk of complications including but not limited to bleeding, infection, arrhythmia, stroke, worsening kidney function, blood loss, groin hematoma, limb loss, emergency coronary artery bypass grafting, and even were discussed with the patient and all questions were answered. The patient understood and wished to proceed. Time out called, patient name, date of , medical record number, allergies, procedure performed, identify Olericulturist, patient and staff member concurred with accurate data, procedure carried on. Findings: LEFT HEART CATHETERIZATION FINDINGS: 1. Left main: The left main coronary artery is widely patent without any significant obstructive disease. 2. Left anterior descending: The LAD is a large tortuous vessel with 10-20% stenosis diffusely. The diagonal branches are free of angiographic high-grade stenosis. 3. Left circumflex: The left circumflex artery is a large co-dominant vessel with 10-20% stenosis diffusely. 4. Right coronary artery: The RCA is a large dominant vessel with 10-20% stenosis diffusely. 5. Left ventricle: Due to severe tortuosity of the aortic arch and ascending aorta, left ventricle access was not attempted. 6. Opening AO pressure 136/89 and closing AO pressure 126/91 Description of Procedure: Informed consent signed and placed in the chart. Patient transferred to optical laboratory manager room. Prepped and draped in usual sterile fashion. 2% lidocaine injected subcutaneously in right wrist area. 22-gauge venipuncture catheter used to access the right radial artery with the Seldinger technique. 6-FR slender sheath placed in right radial artery. Nitroglycerin 200mcg, Verapamil 2.5mg, and Heparin 5000U was given intraarterial through the sheath. J wire advanced under fluoroscopy 5F TIG diagnostic catheter engaged Left Main Coronary Artery. 5F TIG diagnostic catheter engaged Right Coronary Artery Multiple orthogonal angiogram obtained and reviewed Hemostasis was achieved by application of TR band. Assessment: Mild coronary artery disease Hypertensive heart disease Post Operative Condition: Stable No significant blood loss Disposition: Home Plan: The patient will be monitored in the recovery area. Continue aggressive medical therapy and risk factor modification. Patient can follow up outpatient and be discharged from cardiac perspective. Senthil Reynolds Interventional Cardiology
--- NOTE | 2024-12-15 11:54 | WPDHPUPDATE1 ---
History and Physical Update Update Date/Time: 12/15/24 10:54 History and Physical has been reviewed, including an updated exam of the patient. There are NO changes in the patient's condition. Risks, benefits, and alternatives have been discussed and questions answered. Patient agrees to proceed with procedure.
--- NOTE | 2024-12-15 11:54 | WPDMODSED ---
Moderate Sedation Note-Pt Data Patient Data Allergies Allergy/AdvReac Type Severity Reaction Status Date / Time No Known Allergies Allergy Verified 12/10/24 01:52 Home Medications ?Medication ?Instructions ?Recorded ?Confirmed ?Type aspirin 81 mg tablet,delayed 81 mg PO QAM #30 tabs 05/27/22 12/10/24 Rx release bumetanide 2 mg tablet 2 mg PO DAILY #60 tabs 05/27/22 12/10/24 Rx calcium acetate(phosphat bind) 667 667 mg PO TID #90 tabs 05/27/22 12/10/24 Rx mg tablet hydralazine 100 mg tablet 100 mg PO TID #270 tabs 03/12/24 12/10/24 Rx amino acids-protein hydrolysate 16 30 ml PO DAILY 12/10/24 12/10/24 History gram-100 kcal/30 mL oral liquid (Liquacel) cholecalciferol (vitamin D3) 250 250 mcg PO DAILY 12/10/24 12/10/24 History mcg (10,000 unit) capsule isosorbide mononitrate 30 mg 30 mg PO TID 12/10/24 12/10/24 History tablet,extended release 24 hr nifedipine 90 mg tablet,extended 90 mg PO DAILY 12/10/24 12/10/24 History release 24 hr omega 9-wwt-fiv-fish oil 900 1 cap PO DAILY 12/10/24 12/10/24 History mg-1,400 mg capsule,delayed release Current Medications: Active Medications Acetaminophen (Acetaminophen 325 Mg Tablet) 650 mg PO Q4H PRN PRN Reason: Mild Pain (1-3) or Fever Last Admin: 12/12/24 21:33 Dose: 650 mg Aspirin (Aspirin 81 Mg Enteric Tablet) 81 mg PO QAM [facility] Last Admin: 12/15/24 10:15 Dose: 81 mg Atorvastatin Calcium (Atorvastatin 40 Mg Tablet) 40 mg PO DAILY [facility] Last Admin: 12/14/24 08:23 Dose: 40 mg Bisacodyl (Bisacodyl 5 Mg Tablet Ec) 5 mg PO DAILY PRN PRN Reason: Constipation Bumetanide (Bumetanide 1 Mg Tablet) 2 mg PO DAILY [facility] Last Admin: 12/14/24 08:23 Dose: 2 mg Calcium Acetate (Calcium Acetate 667 Mg Tablet) 667 mg PO TIDWM [facility] Last Admin: 12/14/24 17:31 Dose: 667 mg Epoetin Iggy-epbx (Epoetin Iggy-Epbx 10,000 Units/Ml Vial) 10,000 units IV PUSH ONCE ONE Stop: 12/15/24 18:15 Heparin Sodium (Porcine) (Heparin Sodium 5,000 Units/Ml Vial) 5,000 units SUB-Q Q12HR [facility] Last Admin: 12/10/24 14:34 Dose: Not Given Hydralazine HCl (Hydralazine Hcl 50 Mg Tablet) 100 mg PO TID [facility] Last Admin: 12/14/24 17:31 Dose: 100 mg Albumin Human (Albutein) 50 mls @ 999 mls/hr IVPB Q10M PRN PRN Reason: HYPOTENSION Stop: 01/09/25 00:28 Ceftriaxone Sodium 2 gm/ (Sodium Chloride) 100 mls @ 200 mls/hr IVPB Q24H [facility] Last Admin: 12/14/24 17:32 Dose: 200 mls/hr Vancomycin HCl (Vancomycin 750 Mg/Ns 250 Ml) 750 mg in 250 mls @ 250 mls/hr IVPB ONCE ONE Stop: 12/15/24 20:59 Sodium Chloride (Normal Saline Iv) 250 mls @ 50 mls/hr IV CONT .Q5H [facility] Stop: 12/15/24 16:54 Isosorbide Mononitrate (Isosorbide Mononitrate 30 Mg Tab.Er.24h) 60 mg PO TID@0600,1300,2000 [facility] Last Admin: 12/15/24 05:16 Dose: 60 mg Nifedipine (Nifedipine 30 Mg Tab.Er.24) 90 mg PO DAILY [facility] Last Admin: 12/14/24 08:23 Dose: 90 mg Nitroglycerin (Nitroglycerin Sl 0.4 Mg Tablet) 0.4 mg SUBLINGUAL Q5MIN PRN PRN Reason: Chest Pain Last Admin: 12/11/24 09:14 Dose: 0.4 mg Vancomycin HCl (Vancomycin For Hemodialysis) 1 each IVPB PRN PRN PRN Reason: Vancomycin Protocol Vitamin D (Cholecalciferol (Vitamin D3) 125 Mcg (5,000 Units) Tablet) 250 mcg PO DAILY [facility] Last Admin: 12/14/24 11:08 Dose: 250 mcg Sedation/Anesthesia: No previous sedation/anesthesia problems (including family history). [facility] Past Medical History Medical History Cardiomyopathy Acute systolic heart failure Acute diastolic CHF (congestive heart failure) Anemia of chronic disease Flash pulmonary edema Adult polycystic kidney disease Surgical History Surgical History No significant past surgical history Family History Family History (Updated 12/10/24 @ 03:22 by Irving Fleming RN) Sibling Heart disease Fraternal twin brother had CABG X4. History of quadruple bypass Sibling Cancer Sibling ESRD on dialysis Mother Old age of old age Cerebrovascular accident Father Heart disease around 60 y.o. of uncertain type of heart disease Social History Social History Social History: Negative for alcohol cigarettes or tobacco. 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 His brother Gavino romero is the poa. He has One child who is an adult daughter. He is . Code status full code Smoking status: Never smoker Second hand tobacco smoke exposure: No Alcohol intake: never Substance use: never Substance use type: does not use Do You Feel Safe in your Home?: Yes Lack of Transportation: YES Lack of Food: Never True Current Housing: I Have Housing Concerned About Future Housing: No Difficulty Paying Gas/Electric Bills: No Difficulty Paying for Meds: No Currently Unemployed: No Education: Master's Degree or Higher Difficulty w/ Childcare or Family Care: No Spiritual care concerns: No Mod Sed Physical Exam Physical Exam Pre Procedural Exam: Normal: Heart Rate and Heart Rhythm and Variation: Lungs (minimal rales basilar lung fletcher) and Heart Size (LVH) Hours since solid foods: 12 Hours since liquid intake: 12 Mallampati Classification: class II Internal Medicine - PN: Obj Da Vital Signs Vital Signs: Vital Signs - 24 hr 12/14/24 12:00 12/14/24 12:00 12/14/24 16:00 Temperature 37.1 C 37.1 C Pulse Rate 85 77 79 Respiratory Rate 18 18 Blood Pressure 133/84 134/85 Pulse Oximetry 98 99 Oxygen Delivery Fraction of Inspired Oxygen 12/14/24 16:00 12/14/24 19:49 12/14/24 19:50 Temperature 36.6 C Pulse Rate 80 85 84 Respiratory Rate 20 16 Blood Pressure 144/92 H Pulse Oximetry 96 100 Oxygen Delivery Room Air Fraction of Inspired Oxygen 21 12/14/24 20:00 12/14/24 20:00 12/15/24 00:00 Temperature Pulse Rate 84 77 Respiratory Rate Blood Pressure Pulse Oximetry Oxygen Delivery Room Air Fraction of Inspired Oxygen 12/15/24 00:30 12/15/24 04:00 12/15/24 04:00 Temperature 36.7 C 36.7 C Pulse Rate 78 80 83 Respiratory Rate 16 16 Blood Pressure 148/91 H 152/99 H Pulse Oximetry 99 97 Oxygen Delivery Fraction of Inspired Oxygen 12/15/24 08:00 12/15/24 08:18 12/15/24 08:30 Temperature 36.6 C Pulse Rate 85 60 6 L Respiratory Rate 18 Blood Pressure 154/96 H 127/57 L Pulse Oximetry 98 Oxygen Delivery Fraction of Inspired Oxygen Intake/Output Intake/Output: Intake & Output 12/12/24 12/13/24 12/14/24 12/15/24 23:59 23:59 23:59 23:59 Intake Total 1430 1920 1330 350 Output Total 2200 970 500 Balance -439 932 3733 -150 Meds/Results Medications: Active Medications Generic Name Dose Route Start Last Admin Trade Name Freq PRN Reason Stop Dose Admin Acetaminophen 650 mg 12/10/24 08:43 12/12/24 21:33 Acetaminophen 325 Mg Tablet PO 650 mg Q4H PRN Administration Mild Pain (1-3) or Fever Aspirin 81 mg 12/10/24 09:00 12/15/24 10:15 Aspirin 81 Mg Enteric Tablet PO 81 mg QAM TICO Administration Atorvastatin Calcium 40 mg 12/11/24 09:00 12/14/24 08:23 Atorvastatin 40 Mg Tablet PO 40 mg DAILY TICO Administration Bisacodyl 5 mg 12/10/24 08:43 Bisacodyl 5 Mg Tablet Ec PO DAILY PRN Constipation Bumetanide 2 mg 12/10/24 09:00 12/14/24 08:23 Bumetanide 1 Mg Tablet PO 2 mg DAILY TICO Administration Calcium Acetate 667 mg 12/14/24 08:00 12/14/24 17:31 Calcium Acetate 667 Mg Tablet PO 667 mg TIDWM TICO Administration Epoetin Iggy-epbx 10,000 units 12/15/24 18:14 Epoetin Iggy-Epbx 10,000 Units/Ml Vial IV PUSH 12/15/24 18:15 ONCE ONE Heparin Sodium (Porcine) 5,000 units 12/10/24 09:00 12/10/24 14:34 Heparin Sodium 5,000 Units/Ml Vial SUB-Q Not Given Q12HR TICO Hydralazine HCl 100 mg 12/10/24 09:00 12/14/24 17:31 Hydralazine Hcl 50 Mg Tablet PO 100 mg TID TICO Administration Albumin Human 50 mls @ 999 mls/hr 12/10/24 00:29 Albutein IVPB 01/09/25 00:28 Q10M PRN HYPOTENSION Ceftriaxone Sodium 2 gm/ 100 mls @ 200 mls/hr 12/12/24 18:00 12/14/24 17:32 Sodium Chloride IVPB 200 mls/hr Q24H TICO Administration Vancomycin HCl 750 mg in 250 mls @ 250 mls/hr 12/15/24 20:00 Vancomycin 750 Mg/Ns 250 Ml IVPB 12/15/24 20:59 ONCE ONE Sodium Chloride 250 mls @ 50 mls/hr 12/15/24 11:55 Normal Saline Iv IV CONT 12/15/24 16:54 .Q5H TICO Isosorbide Mononitrate 60 mg 12/10/24 20:00 12/15/24 05:16 Isosorbide Mononitrate 30 Mg Tab.Er.24h PO 60 mg TID@0600,1300,2000 TICO Administration Nifedipine 90 mg 12/10/24 09:00 12/14/24 08:23 Nifedipine 30 Mg Tab.Er.24 PO 90 mg DAILY TICO Administration Nitroglycerin 0.4 mg 12/10/24 08:43 12/11/24 09:14 Nitroglycerin Sl 0.4 Mg Tablet SUBLINGUAL 0.4 mg Q5MIN PRN Administration Chest Pain Vancomycin HCl 1 each 12/14/24 08:58 Vancomycin For Hemodialysis IVPB PRN PRN Vancomycin Protocol Vitamin D 250 mcg 12/14/24 09:00 12/14/24 11:08 Cholecalciferol (Vitamin D3) 125 Mcg (5,000 Units) Tablet PO 250 mcg DAILY TICO Administration Radiology Results: ITS Impressions Chest X-Ray 12/12/24 14:54 IMPRESSION: Small left-sided pleural effusion without focal infiltrate. Chest/Abdomen/Pelvis CT 12/13/24 14:13 IMPRESSION: CHEST: 1. No acute cardiopulmonary pathology. 2. Trace of effusion seen in the lung bases. Pleural thickening cannot be excluded. ABDOMEN/PELVIS: 1. Polycystic kidneys. 2. Multiple cysts in the liver. 3. Constipation. Labs 12/15/24 05:39 12/15/24 05:39 Labs: Laboratory Results - last 24 hr 12/14/24 12/15/24 18:21 05:39 WBC 4.8 RBC 2.66 L Hgb 7.7 L Hct 24.3 L MCV 91.4 MCH 28.9 MCHC 31.7 L RDW 15.0 H Plt Count 166 MPV 9.3 Immature Gran % (Auto) 0.4 Neut % (Auto) 51.9 Lymph % (Auto) 29.2 [place]ath % (Auto) 12.5 H Eos % (Auto) 5.6 H Baso % (Auto) 0.4 Lymph # (Auto) 1.40 [place]ath # (Auto) 0.6 Eos # (Auto) 0.3 Baso # (Auto) 0.0 Abs Immat Gran (auto) 0.02 Absolute Neuts (auto) 2.5 Absolute Nucleated RBC 0.000 Nucleated RBC % 0.0 Sodium 138 Potassium 4.7 Chloride 108 H Carbon Dioxide 19 L Anion Gap 11 BUN 65 H D Creatinine 12.11 H Estim Creat Clear Calc 7 Estimated GFR 4 L Glucose 88 Calcium 8.4 Phosphorus 4.8 H Magnesium 2.2 Albumin 3.4 L Nasal RSV Type A (PCR) Cancelled Nasal RSV Type B (PCR) Cancelled Random Vancomycin 16.5 Chlamy pneumoniae PCR Cancelled Adenovirus DNA Cancelled Human Bocavirus (DANNY) Cancelled Coronavirus Type OC43 Cancelled Coronavirus Type HKU1 Cancelled Coronavirus Type 229E Cancelled Coronavirus Type NL63 Cancelled Human Metapneumovir PCR Cancelled Influenza A (PCR) Cancelled Influenza A (H1) RNA Cancelled Influenza A (H3) PCR Cancelled M. pneumoniae DNA Cancelled Parainfluenza PCR Cancelled Parainfluenza 2 (PCR) Cancelled Parainfluenza 3 RNA (PCR) Cancelled Parainfluenza 4 (PCR) Cancelled Rhino/Enterovirus (DANNY) Cancelled SARS-CoV-2 RNA (RT-PCR) Cancelled Influenza Type B (PCR) Cancelled Misc Test Comment Cancelled ASA Classification/Sedation ASA Classification/Sedation ASA Class: III Emergent: No Risks: Risks, benefits and alternatives explained and patient/family accepted plan for sedation. Patient re-evaluated immediately prior to sedation.
--- NOTE | 2024-12-15 14:04 | P.PNNP_ITS ---
Progress Note: A&P Assessment and Plan (1) End stage renal disease: Code(s): N18.6 - End stage renal disease Status: Chronic Assessment and Plan: * HD today * continue Sun/Sun/Sunday dialysis schedule while hospitalized * follow electrolytes, volume status, and clearance * outpatient dialysis unit = [facility] (2) Chest pain: Code(s): R07.9 - Chest pain, unspecified Status: Acute Assessment and Plan: * clinically betterbetter * troponin trend and EKG noted * Cardiology recommendations noted * s/p cardiac catheterization - only mild CAD noted * continue ongoing medical management (3) SOB (shortness of breath): Code(s): R06.02 - Shortness of breath Status: Acute Assessment and Plan: * more pronounced at this itme * repeat imaging without PVC or pulmonary edema * only minimal improvement with aggressive ultrafiltration * no evidence of hypoxia * continue supportive therapy (4) Fever: Code(s): R50.9 - Fever, unspecified Status: Acute Assessment and Plan: * resolved * elevated WBC normalized * cultures negative today * viral studies results negative as well * CT of C/A/P unrevealing * continue supportive therapy (5) Hypertension: Code(s): I10 - Essential (primary) hypertension Status: Chronic Assessment and Plan: * better at this time * resumed on home medications * fluid removal with HD may help to some degree * follow trend of hemodynamics (6) Anemia: Code(s): D64.9 - Anemia, unspecified Status: Chronic Assessment and Plan: * due to ESRD * Epogen with HD * follow trend of H/H (7) Polycystic kidney disease: Code(s): Q61.3 - Polycystic kidney, unspecified Status: Chronic Assessment and Plan: * known diagnosis * etiology of ESRD Will continue to follow. L Subjective Date/time seen: 12/15/24 14:04 Interval history: Follow-up for end stage renal disease on hemodialysis. S/P cardiac catheterization earlier today and tolerated this intervention without any issues or problems; tolerating dialysis treatment at the time of my visit (seen on HD at 1:55pm); no apparent distress voiced when seen. Exam 2 Narrative: General: WD/WN male in NAD Heart: normal S1 and S2; no rub Lungs: decreased at bases Abdomen: soft, nontender, nondistended, positive bowel sounds Extremities: no cyanosis or clubbing; no edema Skin: warm and dry Objective Data Vital Signs Vital Signs: Vital Signs Temp Pulse Pulse Resp BP Pulse Ox O2 Del Method 12/15/24 14:00 79 16 209/78 H 98 Room Air 12/15/24 13:45 197/85 H 12/15/24 13:45 78 14 197/85 H 98 Room Air 12/15/24 13:45 78 12/15/24 13:30 197/85 H 12/15/24 13:30 194/83 H 12/15/24 13:30 73 16 201/76 H 96 Room Air 12/15/24 13:30 73 12/15/24 13:15 73 16 194/83 H 97 Room Air 12/15/24 13:15 73 12/15/24 13:00 195/78 H 12/15/24 13:00 74 18 195/78 H 97 Room Air 12/15/24 13:00 74 12/15/24 12:55 195/78 H 12/15/24 12:45 76 20 195/78 H 98 12/15/24 12:45 195/78 H 12/15/24 12:45 78 16 189/84 H 96 Room Air 12/15/24 12:45 78 12/15/24 12:30 79 18 185/79 H 97 Room Air 12/15/24 12:30 79 12/15/24 12:15 76 16 187/96 H 96 Room Air 12/15/24 12:15 76 12/15/24 12:00 76 16 178/86 H 96 Room Air 12/15/24 12:00 76 12/15/24 08:30 6 L 12/15/24 08:18 60 127/57 L 12/15/24 08:00 80 12/15/24 08:00 97.9 F 85 18 154/96 H 98 12/15/24 04:00 83 12/15/24 04:00 98.1 F 80 16 152/99 H 97 12/15/24 00:30 98.1 F 78 16 148/91 H 99 12/15/24 00:00 77 Intake/Output Intake/Output: Intake & Output 12/12/24 12/13/24 12/14/24 12/15/24 23:59 23:59 23:59 23:59 Intake Total 1430 1920 1330 690 Output Total 2200 970 2500 Balance -692 911 8366 -1810 Meds/Results Medications: Active Medications Generic Name Dose Route Start Last Admin Trade Name Ahsan PRN Reason Stop Dose Admin Acetaminophen 650 mg 12/10/24 08:43 12/12/24 21:33 Acetaminophen 325 Mg Tablet PO 650 mg Q4H PRN Administration Mild Pain (1-3) or Fever Amoxicillin/Clavulanate Potassium 1 tablet 12/15/24 18:30 12/15/24 20:02 Amoxicillin/Clavulanate K 500-125 Mg Tab PO 12/17/24 09:01 1 tablet Q12HR TICO Administration Aspirin 81 mg 12/10/24 09:00 12/15/24 10:15 Aspirin 81 Mg Enteric Tablet PO 81 mg QAM TICO Administration Atorvastatin Calcium 40 mg 12/11/24 09:00 12/15/24 15:26 Atorvastatin 40 Mg Tablet PO 40 mg DAILY TICO Administration Bisacodyl 5 mg 12/10/24 08:43 Bisacodyl 5 Mg Tablet Ec PO DAILY PRN Constipation Bumetanide 2 mg 12/10/24 09:00 12/15/24 15:25 Bumetanide 1 Mg Tablet PO 2 mg DAILY TICO Administration Calcium Acetate 667 mg 12/14/24 08:00 12/15/24 20:01 Calcium Acetate 667 Mg Tablet PO 667 mg TIDWM TICO Administration Heparin Sodium (Porcine) 5,000 units 12/10/24 09:00 12/10/24 14:34 Heparin Sodium 5,000 Units/Ml Vial SUB-Q Not Given Q12HR [facility] Hydralazine HCl 100 mg 12/10/24 09:00 12/15/24 20:02 Hydralazine Hcl 50 Mg Tablet PO 100 mg TID TICO Administration Albumin Human 50 mls @ 999 mls/hr 12/10/24 00:29 Albutein IVPB 01/09/25 00:28 Q10M PRN HYPOTENSION Isosorbide Mononitrate 60 mg 12/10/24 20:00 12/15/24 20:01 Isosorbide Mononitrate 30 Mg Tab.Er.24h PO 60 mg TID@0600,1300,2000 TICO Administration Nifedipine 90 mg 12/10/24 09:00 12/15/24 15:25 Nifedipine 30 Mg Tab.Er.24 PO 90 mg DAILY TICO Administration Nitroglycerin 0.4 mg 12/10/24 08:43 12/11/24 09:14 Nitroglycerin Sl 0.4 Mg Tablet SUBLINGUAL 0.4 mg Q5MIN PRN Administration Chest Pain Vitamin D 250 mcg 12/14/24 09:00 12/15/24 19:16 Cholecalciferol (Vitamin D3) 125 Mcg (5,000 Units) Tablet PO Not Given DAILY [facility] Radiology Results: ITS Impressions Chest X-Ray 12/12/24 14:54 IMPRESSION: Small left-sided pleural effusion without focal infiltrate. Chest/Abdomen/Pelvis CT 12/13/24 14:13 IMPRESSION: CHEST: 1. No acute cardiopulmonary pathology. 2. Trace of effusion seen in the lung bases. Pleural thickening cannot be excluded. ABDOMEN/PELVIS: 1. Polycystic kidneys. 2. Multiple cysts in the liver. 3. Constipation. Labs Labs: Laboratory Tests 12/15/24 05:39 12/15/24 05:39 Calcium 8.4 Phosphorus 4.8 H Magnesium 2.2 Albumin 3.4 L Random Vancomycin 16.5 Microbiology 12/12/24 12:17 Blood Blood Culture - Preliminary 12/12/24 09:01 Blood Blood Culture - Preliminary 12/12/24 20:26 Urine Clean Catch Urine Culture - Final
[2024-12-15] MEDS: EPOETIN ALFA-EPBX 10,000 UNITS/ML VIAL 10000 UNITS IV PUSH (15:16)
[2024-12-15] MEDS: BUMETANIDE 1 MG TABLET 2 MG PO (15:25)
[2024-12-15] MEDS: ATORVASTATIN 40 MG TABLET PO (15:26)
--- NOTE | 2024-12-15 16:26 | PC.NURSE ---
Ko to pt bedside approx 1010 to discuss cath. Pt BP 130s/80s. Ko wanted 81 asa given only prior to cath.
[2024-12-15] MEDS: CALCIUM ACETATE 667 MG TABLET PO (20:01)
[2024-12-16] VITALS (29 sets, daily range): BP systolic 134–181; BP diastolic 57–102; PULSE 58–114; RESP 18–20; TEMP 36.5–37; O2SAT 97–100
[2024-12-16] MEDS: ISOSORBIDE MONONITRATE 30 MG TAB.ER.24H 60 MG PO ×3 (05:39→20:24)
--- NOTE | 2024-12-16 09:07 | P.PNIM_ITS ---
Progress Note: A&P Assessment and Plan (1) Acute on chronic combined systolic and diastolic heart failure: Code(s): I50.43 - Acute on chronic combined systolic (congestive) and diastolic (congestive) heart failure Status: Acute (2) Hypertensive urgency: Code(s): I16.0 - Hypertensive urgency Status: Acute (3) Elevated troponin: Code(s): R77.8 - Other specified abnormalities of plasma proteins Status: Acute (4) Chest pain: Code(s): R07.9 - Chest pain, unspecified Status: Acute (5) ESRD (end stage renal disease) on dialysis: Code(s): N18.6 - End stage renal disease; Z99.2 - Dependence on renal dialysis Status: Acute (6) Chronic anemia: Code(s): D64.9 - Anemia, unspecified Status: Acute Plan Chest pain Elevated troponin x2 EKG shows sinus rhythm no specific ST T-wave changes Possible demand ischemia due to acute heart failure, also possible due to NSTEMI Continue aspirin 81 mg b.i.d. p.o., Imdur 30 mg daily p.o. nitroglycerin sublingual p.r.n. Pending echocardiogram cardiac monitor technician consult pension agent for evaluation treatment Cardiac catheterization today showed patent coronary artery Acute on chronic combined heart failure Patient shortness breath, x-ray shows pulmonary congestion Resulting from fluid overload due to missing dialysis Provide Lasix 100 mg IV push once, Consult corrugated fastener driver for dialysis Patient still fluid overloaded, plans hemodialysis today Hypertension urgency Continue hydralazine 100 mg t.i.d. p.o. Nifedipine 90 mg daily p.o. Labetalol IV p.r.n. Patient fluid overload 80 Consult corrugated fastener driver controlled in target range Chronic anemia No obvious bleeding Resulting from CKD Management per corrugated fastener driver stable Fever Patient has been having fever since yesterday evening, temperature 100.2? 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 On ceftriaxone and add vancomycin, pending respiratory pathogen panel 12/14 blood culture no growth so far, patient is afebrile, changed to Augmentin p.o. 12/15 May discharge patient tomorrow if not fluid overloaded Subjective Date/time seen: 12/16/24 09:07 Interval history: I saw exam patient today, I saw exam patient today, patient has shortness breath, worsening with exertion, patient has cough with some phlegm Exam Narrative: GENERAL: Pleasant, in no acute distress. Well-nourished. - EYES: EOMI. Anicteric. - HENT: Moist mucous membranes. - LUNGS: Coarse breath sound bilaterall y. - CARDIOVASCULAR: Regular rate and rhyth m. No murmur. No JVD. - ABDOMEN: Soft, non-tender and non-dist ended. No palpable masses. - EXTREMITIES: No edema. Peripheral puls es 2+. Non-tender. - NEUROLOGIC: No focal neurological defi cits. CN II-XII grossly intact. - PSYCHIATRIC: Awake, Alert and oriented x 3. Appropriate mood and affect. - SKIN: No rashes or lesions. Warm. - LYMPH: No cervical lymphadenopathy. Objective Data Vital Signs Vital Signs: Vital Signs - 24 hr 12/15/24 12:00 12/15/24 12:00 12/15/24 12:15 Temperature Pulse Rate 76 Pulse Rate [Right Radial Palpation] 76 76 Respiratory Rate 16 Blood Pressure 178/86 H Pulse Oximetry 96 Oxygen Delivery Room Air Fraction of Inspired Oxygen 12/15/24 12:15 12/15/24 12:30 12/15/24 12:30 Temperature Pulse Rate 76 79 Pulse Rate [Right Radial Palpation] 79 Respiratory Rate 16 18 Blood Pressure 187/96 H 185/79 H Pulse Oximetry 96 97 Oxygen Delivery Room Air Room Air Fraction of Inspired Oxygen 12/15/24 12:45 12/15/24 12:45 12/15/24 12:45 Temperature Pulse Rate 78 Pulse Rate [Right Radial Palpation] 78 Respiratory Rate 16 Blood Pressure 189/84 H 195/78 H Pulse Oximetry 96 Oxygen Delivery Room Air Fraction of Inspired Oxygen 12/15/24 12:45 12/15/24 12:55 12/15/24 13:00 Temperature Pulse Rate 76 Pulse Rate [Right Radial Palpation] 74 Respiratory Rate 20 Blood Pressure 195/78 H 195/78 H Pulse Oximetry 98 Oxygen Delivery Fraction of Inspired Oxygen 12/15/24 13:00 12/15/24 13:00 12/15/24 13:15 Temperature Pulse Rate 74 Pulse Rate [Right Radial Palpation] 73 Respiratory Rate 18 Blood Pressure 195/78 H 195/78 H Pulse Oximetry 97 Oxygen Delivery Room Air Fraction of Inspired Oxygen 12/15/24 13:15 12/15/24 13:30 12/15/24 13:30 Temperature Pulse Rate 73 73 Pulse Rate [Right Radial Palpation] 73 Respiratory Rate 16 16 Blood Pressure 194/83 H 201/76 H Pulse Oximetry 97 96 Oxygen Delivery Room Air Room Air Fraction of Inspired Oxygen 12/15/24 13:30 12/15/24 13:30 12/15/24 13:45 Temperature Pulse Rate Pulse Rate [Right Radial Palpation] 78 Respiratory Rate Blood Pressure 194/83 H 197/85 H Pulse Oximetry Oxygen Delivery Fraction of Inspired Oxygen 12/15/24 13:45 12/15/24 13:45 12/15/24 14:00 Temperature Pulse Rate 78 Pulse Rate [Right Radial Palpation] 79 Respiratory Rate 14 Blood Pressure 197/85 H 197/85 H Pulse Oximetry 98 Oxygen Delivery Room Air Fraction of Inspired Oxygen 12/15/24 14:00 12/15/24 14:00 12/15/24 14:15 Temperature Pulse Rate 79 Pulse Rate [Right Radial Palpation] Respiratory Rate 16 Blood Pressure 209/78 H 198/81 H 209/78 H Pulse Oximetry 98 Oxygen Delivery Room Air Fraction of Inspired Oxygen 12/15/24 14:15 12/15/24 14:15 12/15/24 14:30 Temperature Pulse Rate 78 Pulse Rate [Right Radial Palpation] 79 83 Respiratory Rate 14 Blood Pressure 198/81 H Pulse Oximetry 98 Oxygen Delivery Room Air Fraction of Inspired Oxygen 12/15/24 14:30 12/15/24 14:30 12/15/24 14:45 Temperature Pulse Rate 83 Pulse Rate [Right Radial Palpation] 74 Respiratory Rate 16 Blood Pressure 208/88 H 209/88 H Pulse Oximetry 98 Oxygen Delivery Room Air Fraction of Inspired Oxygen 12/15/24 14:45 12/15/24 15:00 12/15/24 15:00 Temperature Pulse Rate 74 76 Pulse Rate [Right Radial Palpation] 76 Respiratory Rate 14 16 Blood Pressure 208/86 H 208/82 H Pulse Oximetry 97 98 Oxygen Delivery Room Air Room Air Fraction of Inspired Oxygen 12/15/24 15:00 12/15/24 15:15 12/15/24 15:15 Temperature Pulse Rate 83 Pulse Rate [Right Radial Palpation] 83 Respiratory Rate 16 Blood Pressure 208/82 H 211/79 H Pulse Oximetry 98 Oxygen Delivery Room Air Fraction of Inspired Oxygen 12/15/24 15:15 12/15/24 15:30 12/15/24 15:30 Temperature Pulse Rate 76 Pulse Rate [Right Radial Palpation] 76 Respiratory Rate 16 Blood Pressure 211/79 H 204/75 H Pulse Oximetry 97 Oxygen Delivery Room Air Fraction of Inspired Oxygen 12/15/24 15:30 12/15/24 15:45 12/15/24 15:45 Temperature Pulse Rate 83 Pulse Rate [Right Radial Palpation] 84 Respiratory Rate 14 Blood Pressure 204/75 H 206/83 H Pulse Oximetry 98 Oxygen Delivery Room Air Fraction of Inspired Oxygen 12/15/24 15:45 12/15/24 16:00 12/15/24 16:15 Temperature Pulse Rate Pulse Rate [Right Radial Palpation] Respiratory Rate Blood Pressure 219/73 H 210/72 H 210/78 H Pulse Oximetry Oxygen Delivery Fraction of Inspired Oxygen 12/15/24 16:15 12/15/24 16:28 12/15/24 16:45 Temperature 97.6 F Pulse Rate 90 Pulse Rate [Right Radial Palpation] Respiratory Rate 18 Blood Pressure 204/75 H 200/76 H 212/72 H Pulse Oximetry 98 Oxygen Delivery Fraction of Inspired Oxygen 12/15/24 17:13 12/15/24 17:35 12/15/24 20:00 Temperature 97.7 F Pulse Rate 83 105 H Pulse Rate [Right Radial Palpation] Respiratory Rate 14 18 Blood Pressure 208/86 H 129/75 Pulse Oximetry 98 100 Oxygen Delivery Room Air Fraction of Inspired Oxygen 21 12/15/24 20:00 12/15/24 20:00 12/15/24 21:53 Temperature Pulse Rate 104 H 104 H 105 H Pulse Rate [Right Radial Palpation] Respiratory Rate Blood Pressure Pulse Oximetry 100 Oxygen Delivery Room Air Fraction of Inspired Oxygen 12/15/24 23:53 12/16/24 00:00 12/16/24 00:00 Temperature 97.6 F Pulse Rate 90 114 H 84 Pulse Rate [Right Radial Palpation] Respiratory Rate 20 Blood Pressure 128/68 Pulse Oximetry 97 Oxygen Delivery Room Air Fraction of Inspired Oxygen 12/16/24 01:57 12/16/24 01:59 12/16/24 03:52 Temperature Pulse Rate 87 Pulse Rate [Right Radial Palpation] 84 90 Respiratory Rate Blood Pressure Pulse Oximetry Oxygen Delivery Fraction of Inspired Oxygen 12/16/24 03:52 12/16/24 04:00 12/16/24 04:00 Temperature 97.7 F Pulse Rate 90 86 88 Pulse Rate [Right Radial Palpation] Respiratory Rate 20 Blood Pressure 148/87 H Pulse Oximetry 97 Oxygen Delivery Room Air Fraction of Inspired Oxygen 12/16/24 05:56 12/16/24 05:56 12/16/24 07:48 Temperature 98.3 F Pulse Rate 78 81 Pulse Rate [Right Radial Palpation] 90 Respiratory Rate 20 Blood Pressure 137/90 Pulse Oximetry 98 Oxygen Delivery Fraction of Inspired Oxygen Intake/Output Intake/Output: Intake & Output 12/13/24 12/14/24 12/15/24 12/16/24 23:59 23:59 23:59 23:59 Intake Total 1920 1330 690 150 Output Total 970 2500 Balance 950 1330 -1810 150 Meds/Results Medications: Active Medications Generic Name Dose Route Start Last Admin Trade Name Freq PRN Reason Stop Dose Admin Acetaminophen 650 mg 12/10/24 08:43 12/12/24 21:33 Acetaminophen 325 Mg Tablet PO 650 mg Q4H PRN Administration Mild Pain (1-3) or Fever Amoxicillin/Clavulanate Potassium 1 tablet 12/15/24 18:30 12/15/24 20:02 Amoxicillin/Clavulanate K 500-125 Mg Tab PO 12/17/24 09:01 1 tablet Q12HR TICO Administration Aspirin 81 mg 12/10/24 09:00 12/15/24 10:15 Aspirin 81 Mg Enteric Tablet PO 81 mg QAM TICO Administration Atorvastatin Calcium 40 mg 12/11/24 09:00 12/15/24 15:26 Atorvastatin 40 Mg Tablet PO 40 mg DAILY TICO Administration Bisacodyl 5 mg 12/10/24 08:43 Bisacodyl 5 Mg Tablet Ec PO DAILY PRN Constipation Bumetanide 2 mg 12/10/24 09:00 12/15/24 15:25 Bumetanide 1 Mg Tablet PO 2 mg DAILY TICO Administration Calcium Acetate 667 mg 12/14/24 08:00 12/15/24 20:01 Calcium Acetate 667 Mg Tablet PO 667 mg TIDWM TICO Administration Heparin Sodium (Porcine) 5,000 units 12/10/24 09:00 12/10/24 14:34 Heparin Sodium 5,000 Units/Ml Vial SUB-Q Not Given Q12HR [facility] Hydralazine HCl 100 mg 12/10/24 09:00 12/15/24 20:02 Hydralazine Hcl 50 Mg Tablet PO 100 mg TID TICO Administration Albumin Human 50 mls @ 999 mls/hr 12/10/24 00:29 Albutein IVPB 01/09/25 00:28 Q10M PRN HYPOTENSION Isosorbide Mononitrate 60 mg 12/10/24 20:00 12/16/24 05:39 Isosorbide Mononitrate 30 Mg Tab.Er.24h PO 60 mg TID@0600,1300,2000 TICO Administration Nifedipine 90 mg 12/10/24 09:00 12/15/24 15:25 Nifedipine 30 Mg Tab.Er.24 PO 90 mg DAILY TICO Administration Nitroglycerin 0.4 mg 12/10/24 08:43 12/11/24 09:14 Nitroglycerin Sl 0.4 Mg Tablet SUBLINGUAL 0.4 mg Q5MIN PRN Administration Chest Pain Vitamin D 250 mcg 12/14/24 09:00 12/15/24 19:16 Cholecalciferol (Vitamin D3) 125 Mcg (5,000 Units) Tablet PO Not Given DAILY [facility] Radiology Results: ITS Impressions Chest X-Ray 12/12/24 14:54 IMPRESSION: Small left-sided pleural effusion without focal infiltrate. Chest/Abdomen/Pelvis CT 12/13/24 14:13 IMPRESSION: CHEST: 1. No acute cardiopulmonary pathology. 2. Trace of effusion seen in the lung bases. Pleural thickening cannot be excluded. ABDOMEN/PELVIS: 1. Polycystic kidneys. 2. Multiple cysts in the liver. 3. Constipation. Labs Labs: Laboratory Results - last 24 hr 12/14/24 18:21 Nasal RSV Type A (PCR) Cancelled Nasal RSV Type B (PCR) Cancelled Chlamy pneumoniae PCR Cancelled Adenovirus DNA Cancelled Human Bocavirus (DANNY) Cancelled Coronavirus Type OC43 Cancelled Coronavirus Type HKU1 Cancelled Coronavirus Type 229E Cancelled Coronavirus Type NL63 Cancelled Human Metapneumovir PCR Cancelled Influenza A (PCR) Cancelled Influenza A (H1) RNA Cancelled Influenza A (H3) PCR Cancelled M. pneumoniae DNA Cancelled Parainfluenza PCR Cancelled Parainfluenza 2 (PCR) Cancelled Parainfluenza 3 RNA (PCR) Cancelled Parainfluenza 4 (PCR) Cancelled Rhino/Enterovirus (DANNY) Cancelled SARS-CoV-2 RNA (RT-PCR) Cancelled Influenza Type B (PCR) Cancelled Misc Test Comment Cancelled
--- NOTE | 2024-12-16 09:11 | P.DS_ITS ---
DS: Summary Time Spent with Patient Time attestation: Total time spent providing and/or coordinating discharge services: DS: Data Data Completed and Pending Labs on day of discharge: Labs from last 24 hours 12/14/24 12/14/24 12/14/24 18:21 18:21 18:21 Nasal RSV Type A (PCR) Nasal RSV Type B (PCR) Chlamy pneumoniae PCR Adenovirus (PCR) Adenovirus DNA Human Bocavirus (DANNY) B. pertussis DNA (PCR) B.parapertussis DNA PCR Coronavirus Type OC43 Coronavirus OC43 (PCR) Coronavirus Type HKU1 Coronavirus HKU1 (PCR) Coronavirus Type 229E Coronavirus 229E (PCR) Coronavirus Type NL63 Coronavirus NL63 (PCR) Human Metapneumovir PCR Influenza A (H1) PCR Influenza A (PCR) Influenza A (H1) RNA Influ A (H1/09) PCR Influenza A (H3) PCR Pending Influenza Type A (PCR) Pending Influenza Type B (PCR) Cancelled Pending M. pneumoniae (PCR) Pending M. pneumoniae DNA Cancelled Parainfluenza PCR Cancelled Parainfluenza 1 (PCR) Pending Parainfluenza 2 (PCR) Pending Cancelled Parainfluenza 3 (PCR) Pending Parainfluenza 3 RNA (PCR) Cancelled Parainfluenza 4 (PCR) Pending Cancelled RSV (PCR) Pending Entero/Rhino (PCR) Pending Rhino/Enterovirus (DANNY) Cancelled SARS-CoV-2 (PCR) Pending SARS-CoV-2 RNA (RT-PCR) Cancelled Misc Test Comment Cancelled 12/14/24 12/14/24 12/14/24 18:21 18:21 18:21 Nasal RSV Type A (PCR) Cancelled Nasal RSV Type B (PCR) Cancelled Chlamy pneumoniae PCR Pending Cancelled Adenovirus (PCR) Pending Adenovirus DNA Cancelled Human Bocavirus (DANNY) Cancelled B. pertussis DNA (PCR) Pending B.parapertussis DNA PCR Pending Coronavirus Type OC43 Cancelled Coronavirus OC43 (PCR) Pending Coronavirus Type HKU1 Cancelled Coronavirus HKU1 (PCR) Pending Coronavirus Type 229E Cancelled Coronavirus 229E (PCR) Pending Coronavirus Type NL63 Cancelled Coronavirus NL63 (PCR) Pending Human Metapneumovir PCR Pending Cancelled Influenza A (H1) PCR Pending Influenza A (PCR) Cancelled Influenza A (H1) RNA Cancelled Influ A (H1/09) PCR Pending Influenza A (H3) PCR Cancelled Influenza Type A (PCR) Influenza Type B (PCR) M. pneumoniae (PCR) M. pneumoniae DNA Parainfluenza PCR Parainfluenza 1 (PCR) Parainfluenza 2 (PCR) Parainfluenza 3 (PCR) Parainfluenza 3 RNA (PCR) Parainfluenza 4 (PCR) RSV (PCR) Entero/Rhino (PCR) Rhino/Enterovirus (DANNY) SARS-CoV-2 (PCR) SARS-CoV-2 RNA (RT-PCR) [facility] [place] Test Comment Preliminary micro results at discharge 12/12/24 12:17 Blood Culture - Preliminary Blood 12/12/24 09:01 Blood Culture - Preliminary Blood Discharge Plan Discharge Consulting providers: hCaparro Holcomb Poonam Discharge Instructions: [facility] [address] [place] [id number] DISCHARGE INSTRUCTIONS - POST RADIAL CATH Activity 1. No driving for 24 hours. 2. No lifting more than 5 lb with affected arm for 1 week. 3. May shower ( tomorrow) but no excessive soaking of affected hand/wrist (such as washing dishes), swimming pool or hot tub for 5 days. Wound Care 1. May remove arm board in the morning. 2. May remove gauze dressing in the morning and put Band-Aid over affected radial site. Keep site covered for 3 days. 3. Observe for redness, drainage, swelling or bleeding. Medications DO NOT STOP YOUR MEDICATIONS ONLY YOUR BUS PERSON DISHWASHER CAN STOP THE FOLLOWING MEDICATIONS - PLEASE CALL THE OFFICE WITH QUESTIONS. *Aspirin *Atorvastatin *Metoprolol Important Reminders 1. If you received a stent, keep your stent card in your wallet at all times 2. Follow a heart healthy diet paying extra attention to cholesterol and fats. 3. Stay hydrated. 4. If you have chest pain unrelieved by rest or nitroglycerin (if prescribed) call 911 immediately. 5. If you miss one dose of Brilinta (if prescribed) take a tablet at the next time due. If you miss 2 doses take a tablet when you remember and resume at the next time due. *For any other questions please call the office at [phone]. Office hours are 8AM 4:30PM Sunday through Sunday. Patient Instructions: Heart Failure (DC), Acute Coronary Syndrome (DC) Patient Language: Grenadian Discharge Medications: No Action calcium acetate(phosphat bind) 667 mg Tablet 667 mg PO TID Qty: 90 1RF aspirin 81 mg Tablet,Delayed Release (Dr/Ec) 81 mg PO QAM Qty: 30 1RF bumetanide 2 mg tablet 2 mg PO DAILY Qty: 60 1RF nifedipine 90 mg tablet extended release 24hr 90 mg PO DAILY omega 8-fwl-diq-fish oil 900-1,400 mg capsule,delayed release(DR/EC) 1 cap PO DAILY cholecalciferol (vitamin D3) 250 mcg (10,000 unit) capsule 250 mcg PO DAILY Liquacel 16-100 gram-kcal/30 mL liquid 30 ml PO DAILY isosorbide mononitrate 30 mg Tablet Extended Release 24 Hr 30 mg PO TID hydralazine 100 mg tablet 100 mg PO TID Qty: 270 3RF Date of admission: 12/10/24 00:14 Primary Care Provider: QuanLibby Admitting Provider: Kelsy Chu Attending physician on admission: Kelsy Chu Condition: Improved
[2024-12-16] MEDS: CHOLECALCIFEROL (VITAMIN D3) 125 MCG (5,000 UNITS) TABLET 250 MCG PO (09:27)
[2024-12-16] MEDS: ASPIRIN 81 MG ENTERIC TABLET PO (09:28)
[2024-12-16] MEDS: ATORVASTATIN 40 MG TABLET PO (09:29)
[2024-12-16] MEDS: CALCIUM ACETATE 667 MG TABLET PO ×3 (09:30→17:20)
[2024-12-16] MEDS: BUMETANIDE 1 MG TABLET 2 MG PO (09:31)
[2024-12-16 09:50] LABS: Hematocrit 25.9 % (42.0-52.0); Hemoglobin 8.2 g/dL (14.0-18.0); Immature Granulocyte Percent A 0.2 % (0-0.5); Lymphocytes Absolute Auto 0.83 K/mm3 (0.9-3.2); Mean Corpuscular HGB Conc 31.7 g/dl (32-36); Mean Corpuscular Hemoglobin 28.8 pg (26-34); Mean Corpuscular Volume 90.9 fl (80-100); Nucleated Red Blood Cells Absolute Auto 0.000 K/mm3 (0.0-0.012); Nucleated Red Blood Cells Perc 0.0 % (0.0-0.2); Platelet Count Result 196 k/mm3 (150-375); Red Blood Count 2.85 M/mm3 (4.6-6.20); White Blood Count 4.6 K/mm3 (4.5-10.0)
[2024-12-16 10:10] LABS: Albumin Level 3.5 g/dL (3.5-5.1); Anion Gap 8 mmol/L (4-12); Blood Urea Nitrogen 41 mg/dL (9-20); Calcium 8.1 mg/dL (8.4-10.2); Carbon Dioxide 27 mmol/L (22-30); Chloride 102 mmol/L (98-107); Estimated CRCL calculation 9 ml/min; Estimated Glomerular Filt Rate 6; Glucose 159 mg/dL (65-110); Magnesium 2.1 mg/dL (1.6-2.3); Potassium 4.1 mmol/L (3.4-5.0); Sodium 137 mmol/L (137-145)
--- NOTE | 2024-12-16 11:41 | P.PNNP_ITS ---
Progress Note: A&P Assessment and Plan (1) End stage renal disease: Code(s): N18.6 - End stage renal disease Status: Chronic Assessment and Plan: * HD tomorrow * continue Sun/Sun/Sunday dialysis schedule while hospitalized * follow electrolytes, volume status, and clearance * outpatient dialysis unit = [facility] (2) Chest pain: Code(s): R07.9 - Chest pain, unspecified Status: Acute Assessment and Plan: * clinically better/resolved * troponin trend and EKG noted * Cardiology recommendations noted * s/p cardiac catheterization - only mild CAD noted * continue ongoing medical management (3) SOB (shortness of breath): Code(s): R06.02 - Shortness of breath Status: Acute Assessment and Plan: * more pronounced at this time * repeat imaging without PVC or pulmonary edema * DUF treatment today * no evidence of hypoxia * continue supportive therapy (4) Fever: Code(s): R50.9 - Fever, unspecified Status: Acute Assessment and Plan: * resolved * elevated WBC normalized * cultures negative today * viral studies results negative as well * CT of C/A/P unrevealing * continue supportive therapy (5) Hypertension: Code(s): I10 - Essential (primary) hypertension Status: Chronic Assessment and Plan: * better at this time * resumed on home medications * fluid removal with HD may help to some degree * follow trend of hemodynamics (6) Anemia: Code(s): D64.9 - Anemia, unspecified Status: Chronic Assessment and Plan: * due to ESRD * Epogen with HD * follow trend of H/H (7) Polycystic kidney disease: Code(s): Q61.3 - Polycystic kidney, unspecified Status: Chronic Assessment and Plan: * known diagnosis * etiology of ESRD Will continue to follow. L Subjective Date/time seen: 12/16/24 11:41 Interval history: Follow-up for end stage renal disease on hemodialysis. Tolerated dialysis treatment yesterday afternoon as well as cardiac catheterization yesterday morning without any issues or problems; noted plans for possible discharge but patient complaining of shortness of breath at the time of my visit which is causing him some discomfort; no other acute complaints voiced. Exam 2 Narrative: General: WD/WN male in NAD Heart: normal S1 and S2; no rub Lungs: decreased at bases Abdomen: soft, nontender, nondistended, positive bowel sounds Extremities: no cyanosis or clubbing; no edema Skin: warm and intact Objective Data Vital Signs Vital Signs: Vital Signs Temp Pulse Pulse Resp BP Pulse Ox O2 Del Method 12/16/24 11:35 93 149/90 H 12/16/24 10:00 91 12/16/24 08:00 86 12/16/24 07:48 98.3 F 81 20 137/90 98 12/16/24 05:56 90 12/16/24 05:56 78 12/16/24 04:00 88 12/16/24 04:00 97.7 F 86 20 148/87 H 97 12/16/24 03:52 90 Room Air 12/16/24 03:52 90 12/16/24 01:59 84 12/16/24 01:57 87 12/16/24 00:00 84 12/16/24 00:00 114 H Room Air 12/15/24 23:53 97.6 F 90 20 128/68 97 12/15/24 21:53 105 H 12/15/24 20:00 104 H 12/15/24 20:00 104 H 100 Room Air 12/15/24 20:00 97.7 F 105 H 18 129/75 100 Intake/Output Intake/Output: Intake & Output 12/13/24 12/14/24 12/15/24 12/16/24 23:59 23:59 23:59 23:59 Intake Total 1920 6684 284 7139 Output Total 970 2500 3200 Balance 950 1330 -1810 -2130 Meds/Results Medications: Active Medications Generic Name Dose Route Start Last Admin Trade Name Ahsan PRN Reason Stop Dose Admin Acetaminophen 650 mg 12/10/24 08:43 12/12/24 21:33 Acetaminophen 325 Mg Tablet PO 650 mg Q4H PRN Administration Mild Pain (1-3) or Fever Amoxicillin/Clavulanate Potassium 1 tablet 12/15/24 18:30 12/16/24 09:29 Amoxicillin/Clavulanate K 500-125 Mg Tab PO 12/17/24 09:01 1 tablet Q12HR TICO Administration Aspirin 81 mg 12/10/24 09:00 12/16/24 09:28 Aspirin 81 Mg Enteric Tablet PO 81 mg QAM TICO Administration Atorvastatin Calcium 40 mg 12/11/24 09:00 12/16/24 09:29 Atorvastatin 40 Mg Tablet PO 40 mg DAILY TICO Administration Bisacodyl 5 mg 12/10/24 08:43 Bisacodyl 5 Mg Tablet Ec PO DAILY PRN Constipation Bumetanide 2 mg 12/10/24 09:00 12/16/24 09:31 Bumetanide 1 Mg Tablet PO 2 mg DAILY TICO Administration Calcium Acetate 667 mg 12/14/24 08:00 12/16/24 17:20 Calcium Acetate 667 Mg Tablet PO 667 mg TIDWM TICO Administration Heparin Sodium (Porcine) 5,000 units 12/10/24 09:00 12/10/24 14:34 Heparin Sodium 5,000 Units/Ml Vial SUB-Q Not Given Q12HR [facility] Hydralazine HCl 100 mg 12/10/24 09:00 12/16/24 17:20 Hydralazine Hcl 50 Mg Tablet PO 100 mg TID TICO Administration Albumin Human 50 mls @ 999 mls/hr 12/10/24 00:29 Albutein IVPB 01/09/25 00:28 Q10M PRN HYPOTENSION Isosorbide Mononitrate 60 mg 12/10/24 20:00 12/16/24 12:50 Isosorbide Mononitrate 30 Mg Tab.Er.24h PO 60 mg TID@0600,1300,2000 [facility] Administration Nifedipine 90 mg 12/10/24 09:00 12/16/24 09:27 Nifedipine 30 Mg Tab.Er.24 PO 90 mg DAILY TICO Administration Nitroglycerin 0.4 mg 12/10/24 08:43 12/11/24 09:14 Nitroglycerin Sl 0.4 Mg Tablet SUBLINGUAL 0.4 mg Q5MIN PRN Administration Chest Pain Vitamin D 250 mcg 12/14/24 09:00 12/16/24 09:27 Cholecalciferol (Vitamin D3) 125 Mcg (5,000 Units) Tablet PO 125 mcg DAILY TICO Administration Radiology Results: ITS Impressions Chest/Abdomen/Pelvis CT 12/13/24 14:13 IMPRESSION: CHEST: 1. No acute cardiopulmonary pathology. 2. Trace of effusion seen in the lung bases. Pleural thickening cannot be excluded. ABDOMEN/PELVIS: 1. Polycystic kidneys. 2. Multiple cysts in the liver. 3. Constipation. Chest X-Ray 12/16/24 11:58 IMPRESSION: 1. No acute cardiopulmonary disease. Labs Labs: Laboratory Tests 12/16/24 09:35 12/16/24 09:35 Calcium 8.1 L Phosphorus 4.0 Magnesium 2.1 Albumin 3.5 Microbiology 12/12/24 12:17 Blood Blood Culture - Preliminary 12/12/24 09:01 Blood Blood Culture - Preliminary
[2024-12-16] MEDS: SODIUM CHLORIDE 0.9% IV 1,000 ML 999 ML IV CONT (13:37)
[2024-12-16] MEDS: EPOETIN ALFA-EPBX 20,000 UNITS/ML VIAL 20000 UNITS IV PUSH (15:20)
[2024-12-17] VITALS (23 sets, daily range): BP systolic 114–153; BP diastolic 71–90; PULSE 82–109; RESP 16–18; TEMP 36.1–37.3; O2SAT 97–100
[2024-12-17] MEDS: ISOSORBIDE MONONITRATE 30 MG TAB.ER.24H 60 MG PO ×3 (06:35→20:28)
[2024-12-17] MEDS: CALCIUM ACETATE 667 MG TABLET PO ×3 (07:57→19:06)
[2024-12-17] MEDS: CHOLECALCIFEROL (VITAMIN D3) 125 MCG (5,000 UNITS) TABLET 250 MCG PO (08:24)
[2024-12-17] MEDS: ATORVASTATIN 40 MG TABLET PO (08:25)
[2024-12-17] MEDS: BUMETANIDE 1 MG TABLET 2 MG PO (08:25)
[2024-12-17] MEDS: ASPIRIN 81 MG ENTERIC TABLET PO (08:26)
[2024-12-17 09:38] LABS: Hematocrit 26.1 % (42.0-52.0); Hemoglobin 8.3 g/dL (14.0-18.0); Immature Granulocyte Percent A 0.2 % (0-0.5); Lymphocytes Absolute Auto 1.03 K/mm3 (0.9-3.2); Mean Corpuscular HGB Conc 31.8 g/dl (32-36); Mean Corpuscular Hemoglobin 29.2 pg (26-34); Mean Corpuscular Volume 91.9 fl (80-100); Nucleated Red Blood Cells Absolute Auto 0.000 K/mm3 (0.0-0.012); Nucleated Red Blood Cells Perc 0.0 % (0.0-0.2); Platelet Count Result 188 k/mm3 (150-375); Red Blood Count 2.84 M/mm3 (4.6-6.20); White Blood Count 4.2 K/mm3 (4.5-10.0)
[2024-12-17 10:17] LABS: Albumin Level 3.8 g/dL (3.5-5.1); Anion Gap 13 mmol/L (4-12); Blood Urea Nitrogen 56 mg/dL (9-20); Calcium 9.1 mg/dL (8.4-10.2); Carbon Dioxide 24 mmol/L (22-30); Chloride 100 mmol/L (98-107); Estimated CRCL calculation 7 ml/min; Estimated Glomerular Filt Rate 5; Glucose 122 mg/dL (65-110); Magnesium 2.2 mg/dL (1.6-2.3); Potassium 4.3 mmol/L (3.4-5.0); Sodium 137 mmol/L (137-145)
[2024-12-17] MEDS: BISACODYL 5 MG TABLET EC PO (14:22)
--- NOTE | 2024-12-17 15:12 | P.PNNP_ITS ---
Progress Note: A&P Assessment and Plan (1) End stage renal disease: Code(s): N18.6 - End stage renal disease Status: Chronic Assessment and Plan: * HD today * continue Sun/Sun/Sunday dialysis schedule while hospitalized * follow electrolytes, volume status, and clearance * outpatient dialysis unit = [facility] (2) Chest pain: Code(s): R07.9 - Chest pain, unspecified Status: Acute Assessment and Plan: * clinically better/resolved * troponin trend and EKG noted * Cardiology recommendations noted * s/p cardiac catheterization - only mild CAD noted * continue ongoing medical management (3) SOB (shortness of breath): Code(s): R06.02 - Shortness of breath Status: Acute Assessment and Plan: * more pronounced at this time * repeat imaging without PVC or pulmonary edema * minimal improvement with aggressive ultrafiltration * consider further imaging (i.e. CT of chest) * no evidence of hypoxia * continue supportive therapy (4) Fever: Code(s): R50.9 - Fever, unspecified Status: Acute Assessment and Plan: * resolved * elevated WBC normalized * cultures negative today * viral studies results negative as well * CT of C/A/P unrevealing * continue supportive therapy (5) Hypertension: Code(s): I10 - Essential (primary) hypertension Status: Chronic Assessment and Plan: * better at this time * resumed on home medications * fluid removal with HD may help to some degree * follow trend of hemodynamics (6) Anemia: Code(s): D64.9 - Anemia, unspecified Status: Chronic Assessment and Plan: * due to ESRD * Epogen with HD * follow trend of H/H (7) Polycystic kidney disease: Code(s): Q61.3 - Polycystic kidney, unspecified Status: Chronic Assessment and Plan: * known diagnosis * etiology of ESRD Will continue to follow. L Subjective Date/time seen: 12/17/24 15:12 Interval history: Follow-up for end stage renal disease on hemodialysis. Tolerated dry ultrafiltration session yesterday with improvement in breathing although still reports some mild shortness of breath at this time; tolerating dialysis treatment at the time of my visit (seen on HD at 3:00pm); no other acute issues or problems voiced when seen; no events overnight or earlier this morning. Exam 2 Narrative: General: WD/WN male in NAD Heart: normal S1 and S2; no rub Lungs: decreased at bases Abdomen: soft, nontender, nondistended, positive bowel sounds Extremities: no cyanosis or clubbing; no edema Skin: no rash Objective Data Vital Signs Vital Signs: Vital Signs Temp Pulse Resp BP Pulse Ox O2 Del Method 12/17/24 15:00 84 148/88 H 12/17/24 14:54 83 145/89 H 12/17/24 14:43 97 F L 82 17 138/90 97 12/17/24 11:49 99.1 F 89 16 114/71 99 12/17/24 08:00 98.4 F 90 16 145/88 H 98 12/16/24 23:48 96 20 100 12/16/24 21:05 99 Room Air 12/16/24 20:12 98.2 F 96 20 139/89 99 12/16/24 19:27 Room Air Intake/Output Intake/Output: Intake & Output 12/14/24 12/15/24 12/16/24 12/17/24 23:59 23:59 23:59 23:59 Intake Total 8187 050 3516 1070 Output Total 2500 3200 Balance 1330 -1810 -2130 1070 Meds/Results Medications: Active Medications Generic Name Dose Route Start Last Admin Trade Name Waleq PRN Reason Stop Dose Admin Acetaminophen 650 mg 12/10/24 08:43 12/12/24 21:33 Acetaminophen 325 Mg Tablet PO 650 mg Q4H PRN Administration Mild Pain (1-3) or Fever Aspirin 81 mg 12/10/24 09:00 12/17/24 08:26 Aspirin 81 Mg Enteric Tablet PO 81 mg QAM TICO Administration Atorvastatin Calcium 40 mg 12/11/24 09:00 12/17/24 08:25 Atorvastatin 40 Mg Tablet PO 40 mg DAILY TICO Administration Bisacodyl 5 mg 12/10/24 08:43 12/17/24 14:22 Bisacodyl 5 Mg Tablet Ec PO 5 mg DAILY PRN Administration Constipation Bumetanide 2 mg 12/10/24 09:00 12/17/24 08:25 Bumetanide 1 Mg Tablet PO 2 mg DAILY TICO Administration Calcium Acetate 667 mg 12/14/24 08:00 12/17/24 11:37 Calcium Acetate 667 Mg Tablet PO 667 mg TIDWM TICO Administration Epoetin Iggy-epbx 10,000 units 12/17/24 18:34 12/17/24 16:45 Epoetin Iggy-Epbx 10,000 Units/Ml Vial IV PUSH 12/17/24 18:35 10,000 units ONCE ONE Administration Heparin Sodium (Porcine) 5,000 units 12/10/24 09:00 12/10/24 14:34 Heparin Sodium 5,000 Units/Ml Vial SUB-Q Not Given Q12HR ON LICENSE OF [facility] Hydralazine HCl 100 mg 12/10/24 09:00 12/17/24 13:34 Hydralazine Hcl 50 Mg Tablet PO 100 mg TID TICO Administration Albumin Human 50 mls @ 999 mls/hr 12/10/24 00:29 Albutein IVPB 01/09/25 00:28 Q10M PRN HYPOTENSION Isosorbide Mononitrate 60 mg 12/10/24 20:00 12/17/24 13:34 Isosorbide Mononitrate 30 Mg Tab.Er.24h PO 60 mg TID@0600,1300,2000 TICO Administration Nifedipine 90 mg 12/10/24 09:00 12/17/24 08:25 Nifedipine 30 Mg Tab.Er.24 PO 90 mg DAILY TICO Administration Nitroglycerin 0.4 mg 12/10/24 08:43 12/11/24 09:14 Nitroglycerin Sl 0.4 Mg Tablet SUBLINGUAL 0.4 mg Q5MIN PRN Administration Chest Pain Polyethylene Glycol 17 gm 12/17/24 12:54 12/17/24 13:34 Polyethylene Glycol 3350 17 Gm Powd.Pack PO 17 gm QAM PRN Administration Constipation Vitamin D 250 mcg 12/14/24 09:00 12/17/24 08:24 Cholecalciferol (Vitamin D3) 125 Mcg (5,000 Units) Tablet PO 250 mcg DAILY TICO Administration Radiology Results: ITS Impressions Chest/Abdomen/Pelvis CT 12/13/24 14:13 IMPRESSION: CHEST: 1. No acute cardiopulmonary pathology. 2. Trace of effusion seen in the lung bases. Pleural thickening cannot be excluded. ABDOMEN/PELVIS: 1. Polycystic kidneys. 2. Multiple cysts in the liver. 3. Constipation. Chest X-Ray 12/16/24 11:58 IMPRESSION: 1. No acute cardiopulmonary disease. Abdomen X-Ray 12/17/24 13:20 IMPRESSION: NO ACUTE ABDOMINAL FINDINGS. Constipation. Labs Labs: Laboratory Tests 12/17/24 09:00 12/17/24 09:00 Calcium 9.1 Phosphorus 3.6 Magnesium 2.2 Albumin 3.8
--- NOTE | 2024-12-17 15:23 | PC.NURSE ---
1440- to dialysis for treatment via bed accompanied by staff
[2024-12-17] MEDS: EPOETIN ALFA-EPBX 10,000 UNITS/ML VIAL 10000 UNITS IV PUSH (16:45)
--- NOTE | 2024-12-17 18:06 | PM.IMPN ---
Progress Note: A&P Assessment and Plan (1) Acute on chronic combined systolic and diastolic heart failure: Code(s): I50.43 - Acute on chronic combined systolic (congestive) and diastolic (congestive) heart failure Status: Acute (2) Hypertensive urgency: Code(s): I16.0 - Hypertensive urgency Status: Acute (3) Elevated troponin: Code(s): R77.8 - Other specified abnormalities of plasma proteins Status: Acute (4) Chest pain: Code(s): R07.9 - Chest pain, unspecified Status: Acute (5) ESRD (end stage renal disease) on dialysis: Code(s): N18.6 - End stage renal disease; Z99.2 - Dependence on renal dialysis Status: Acute (6) Chronic anemia: Code(s): D64.9 - Anemia, unspecified Status: Acute Plan Chest pain Elevated troponin x2 EKG shows sinus rhythm no specific ST T-wave changes Possible demand ischemia due to acute heart failure, also possible due to NSTEMI Continue aspirin 81 mg b.i.d. p.o., Imdur 30 mg daily p.o. nitroglycerin sublingual p.r.n. Pending echocardiogram court monitor consult road mechanic for evaluation treatment Cardiac catheterization today showed patent coronary artery Acute on chronic combined heart failure Patient shortness breath, x-ray shows pulmonary congestion Resulting from fluid overload due to missing dialysis Provide Lasix 100 mg IV push once, Consult aligning inspector for dialysis Patient still fluid overloaded, plans hemodialysis today Hypertension urgency Continue hydralazine 100 mg t.i.d. p.o. Nifedipine 90 mg daily p.o. Labetalol IV p.r.n. 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 On ceftriaxone and add vancomycin, pending respiratory pathogen panel 12/14 blood culture no growth so far, patient is afebrile, changed to Augmentin p.o. 12/15 Patient with history of ESRD on HD, presented with c/o CP and shortness of breath upon arrival patient tropes were elevated patient was seen by the road mechanic and had cardiac cath which showed mild CAD, today c/o abdominal pain and bloating, KUB showed intestine full of stool will give miralax and Dulcolax suppository and later patient did have a BM, patient had HD, and seen by aligning inspector, will monitor. May discharge patient tomorrow if not fluid overloaded Subjective Date/time seen: 12/17/24 18:06 Interval history: Patient with history of ESRD on HD, presented with c/o CP and shortness of breath upon arrival patient tropes were elevated patient was seen by the road mechanic and had cardiac cath which showed mild CAD, today c/o abdominal pain and bloating, KUB showed intestine full of stool will give miralax and Dulcolax suppository and later patient did have a BM, patient had HD, and seen by aligning inspector, will monitor. Review of Systems Review of Systems: RS negative except above Exam Narrative: Patient is comfortable, NAD HEENT: eyes are clear and none icteric LUNGS: Bilateral fair entry with rales and rhonchi HEART: RR S1S2 ABD: BS+, Soft and nontender Lower extremities: no edema SKIN: nonjaundiced Neuro: grossly intact. Objective Data Vital Signs Vital Signs: Vital Signs - 24 hr 12/16/24 19:27 12/16/24 20:12 12/16/24 21:05 Temperature 36.8 C Pulse Rate 96 Respiratory Rate 20 Blood Pressure 139/89 Pulse Oximetry 99 99 Oxygen Delivery Room Air Room Air 12/16/24 23:48 12/17/24 08:00 12/17/24 11:49 Temperature 36.9 C 37.3 C Pulse Rate 96 90 89 Respiratory Rate 20 16 16 Blood Pressure 145/88 H 114/71 Pulse Oximetry 100 98 99 Oxygen Delivery 12/17/24 14:43 12/17/24 14:54 12/17/24 15:00 Temperature 36.1 C L Pulse Rate 82 83 84 Respiratory Rate 17 Blood Pressure 138/90 145/89 H 148/88 H Pulse Oximetry 97 Oxygen Delivery 12/17/24 15:15 12/17/24 15:30 12/17/24 15:45 Temperature Pulse Rate 83 86 84 Respiratory Rate Blood Pressure 142/84 H 146/84 H 152/89 H Pulse Oximetry Oxygen Delivery 12/17/24 16:00 12/17/24 16:15 12/17/24 16:30 Temperature Pulse Rate 82 84 95 Respiratory Rate Blood Pressure 152/90 H 150/85 H 149/89 H Pulse Oximetry Oxygen Delivery 12/17/24 16:45 12/17/24 17:00 12/17/24 17:15 Temperature Pulse Rate 95 94 93 Respiratory Rate Blood Pressure 153/89 H 148/88 H 146/89 H Pulse Oximetry Oxygen Delivery 12/17/24 17:30 12/17/24 17:45 Temperature Pulse Rate 98 94 Respiratory Rate Blood Pressure 146/80 H 142/80 H Pulse Oximetry Oxygen Delivery Intake/Output Intake/Output: Intake & Output 12/14/24 12/15/24 12/16/24 12/17/24 23:59 23:59 23:59 23:59 Intake Total 9617 114 0449 1070 Output Total 2500 3200 Balance 1330 -1810 -2130 1070 Meds/Results Medications: Active Medications Generic Name Dose Route Start Last Admin Trade Name Freq PRN Reason Stop Dose Admin Acetaminophen 650 mg 12/10/24 08:43 12/12/24 21:33 Acetaminophen 325 Mg Tablet PO 650 mg Q4H PRN Administration Mild Pain (1-3) or Fever Aspirin 81 mg 12/10/24 09:00 12/17/24 08:26 Aspirin 81 Mg Enteric Tablet PO 81 mg QAM TICO Administration Atorvastatin Calcium 40 mg 12/11/24 09:00 12/17/24 08:25 Atorvastatin 40 Mg Tablet PO 40 mg DAILY TICO Administration Bisacodyl 5 mg 12/10/24 08:43 12/17/24 14:22 Bisacodyl 5 Mg Tablet Ec PO 5 mg DAILY PRN Administration Constipation Bumetanide 2 mg 12/10/24 09:00 12/17/24 08:25 Bumetanide 1 Mg Tablet PO 2 mg DAILY TICO Administration Calcium Acetate 667 mg 12/14/24 08:00 12/17/24 11:37 Calcium Acetate 667 Mg Tablet PO 667 mg TIDWM TICO Administration Epoetin Iggy-epbx 10,000 units 12/17/24 18:34 12/17/24 16:45 Epoetin Iggy-Epbx 10,000 Units/Ml Vial IV PUSH 12/17/24 18:35 10,000 units ONCE ONE Administration Heparin Sodium (Porcine) 5,000 units 12/10/24 09:00 12/10/24 14:34 Heparin Sodium 5,000 Units/Ml Vial SUB-Q Not Given Q12HR TICO Hydralazine HCl 100 mg 12/10/24 09:00 12/17/24 13:34 Hydralazine Hcl 50 Mg Tablet PO 100 mg TID TICO Administration Albumin Human 50 mls @ 999 mls/hr 12/10/24 00:29 Albutein IVPB 01/09/25 00:28 Q10M PRN HYPOTENSION Isosorbide Mononitrate 60 mg 12/10/24 20:00 12/17/24 13:34 Isosorbide Mononitrate 30 Mg Tab.Er.24h PO 60 mg TID@0600,1300,2000 TICO Administration Nifedipine 90 mg 12/10/24 09:00 12/17/24 08:25 Nifedipine 30 Mg Tab.Er.24 PO 90 mg DAILY TICO Administration Nitroglycerin 0.4 mg 12/10/24 08:43 12/11/24 09:14 Nitroglycerin Sl 0.4 Mg Tablet SUBLINGUAL 0.4 mg Q5MIN PRN Administration Chest Pain Polyethylene Glycol 17 gm 12/17/24 12:54 12/17/24 13:34 Polyethylene Glycol 3350 17 Gm Powd.Pack PO 17 gm QAM PRN Administration Constipation Vitamin D 250 mcg 12/14/24 09:00 12/17/24 08:24 Cholecalciferol (Vitamin D3) 125 Mcg (5,000 Units) Tablet PO 250 mcg DAILY TICO Administration Radiology Results: ITS Impressions Chest/Abdomen/Pelvis CT 12/13/24 14:13 IMPRESSION: CHEST: 1. No acute cardiopulmonary pathology. 2. Trace of effusion seen in the lung bases. Pleural thickening cannot be excluded. ABDOMEN/PELVIS: 1. Polycystic kidneys. 2. Multiple cysts in the liver. 3. Constipation. Chest X-Ray 12/16/24 11:58 IMPRESSION: 1. No acute cardiopulmonary disease. Abdomen X-Ray 12/17/24 13:20 IMPRESSION: NO ACUTE ABDOMINAL FINDINGS. Constipation. Labs Labs: Laboratory Results - last 24 hr 12/17/24 09:00 WBC 4.2 L RBC 2.84 L Hgb 8.3 L Hct 26.1 L MCV 91.9 MCH 29.2 MCHC 31.8 L RDW 15.8 H Plt Count 188 MPV 9.7 Immature Gran % (Auto) 0.2 Neut % (Auto) 56.9 Lymph % (Auto) 24.3 Meade % (Auto) 13.9 H Eos % (Auto) 4.5 H Baso % (Auto) 0.2 Lymph # (Auto) 1.03 [place]ade # (Auto) 0.6 Eos # (Auto) 0.2 Baso # (Auto) 0.0 Abs Immat Gran (auto) 0.01 Absolute Neuts (auto) 2.4 Absolute Nucleated RBC 0.000 Nucleated RBC % 0.0 Sodium 137 Potassium 4.3 Chloride 100 Carbon Dioxide 24 Anion Gap 13 H BUN 56 H D Creatinine 11.22 H Estim Creat Clear Calc 7 Estimated GFR 5 L Glucose 122 H Calcium 9.1 Phosphorus 3.6 Magnesium 2.2 Albumin 3.8
--- NOTE | 2024-12-17 19:09 | PC.NURSE ---
1854- returned to room -post dialysis treatment- no c/o pain at this time
[2024-12-18] MEDS: ISOSORBIDE MONONITRATE 30 MG TAB.ER.24H 60 MG PO ×3 (06:47→20:48)
[2024-12-18 07:58] VITALS: BP 147/94; PULSE 89; RESP 18; TEMP 37.2; O2SAT 99
[2024-12-18 08:00] VITALS: PULSE 76; O2SAT 98
[2024-12-18] MEDS: CHOLECALCIFEROL (VITAMIN D3) 125 MCG (5,000 UNITS) TABLET 250 MCG PO (09:14)
[2024-12-18] MEDS: BUMETANIDE 1 MG TABLET 2 MG PO (09:14)
[2024-12-18] MEDS: ATORVASTATIN 40 MG TABLET PO (09:14)
[2024-12-18] MEDS: CALCIUM ACETATE 667 MG TABLET PO ×3 (09:14→17:48)
[2024-12-18] MEDS: ASPIRIN 81 MG ENTERIC TABLET PO (09:14)
--- NOTE | 2024-12-18 10:34 | PCNWS ---
Weekly nutritional screen. Patient is tolerating current renal diet with adequate intake 100%. No weight loss reported. No nutritional recommendations at this time.
--- NOTE | 2024-12-18 13:26 | P.PNNP_ITS ---
Progress Note: A&P Assessment and Plan (1) End stage renal disease: Code(s): N18.6 - End stage renal disease Status: Chronic Assessment and Plan: * HD tomorrow * continue Sun/Sun/Sunday dialysis schedule while hospitalized * follow electrolytes, volume status, and clearance * outpatient dialysis unit = [facility] (2) Chest pain: Code(s): R07.9 - Chest pain, unspecified Status: Acute Assessment and Plan: * clinically betterbetter * troponin trend and EKG noted * Cardiology recommendations noted * cardiac catheterization - only mild CAD noted * continue ongoing medical management (3) SOB (shortness of breath): Code(s): R06.02 - Shortness of breath Status: Acute Assessment and Plan: * more pronounced at this itme * repeat imaging without PVC or pulmonary edema * only minimal improvement with aggressive ultrafiltration * no evidence of hypoxia * consider CT of chest? * continue supportive therapy (4) Fever: Code(s): R50.9 - Fever, unspecified Status: Acute Assessment and Plan: * resolved * elevated WBC normalized * cultures negative today * viral studies results negative as well * CT of C/A/P unrevealing * continue supportive therapy (5) Hypertension: Code(s): I10 - Essential (primary) hypertension Status: Chronic Assessment and Plan: * better at this time * resumed on home medications * fluid removal with HD may help to some degree * follow trend of hemodynamics (6) Anemia: Code(s): D64.9 - Anemia, unspecified Status: Chronic Assessment and Plan: * due to ESRD * Epogen with HD * follow trend of H/H (7) Polycystic kidney disease: Code(s): Q61.3 - Polycystic kidney, unspecified Status: Chronic Assessment and Plan: * known diagnosis * etiology of ESRD Will continue to follow. L Subjective Date/time seen: 12/18/24 13:26 Interval history: Follow-up for end stage renal disease on hemodialysis. Tolerated dialysis treatment yesterday without any issues or problems; despite aggressive ultrafiltration/fluid removal over the past 3 days (combo of HD + DUF), he still feels short of breath which he describes as a constriction-like feeling -- no other acute issues/events overnight or earlier this morning. Exam 2 Narrative: General: WD/WN male in NAD Heart: normal S1 and S2; no rub Lungs: decreased at bases Abdomen: soft, nontender, nondistended, positive bowel sounds Extremities: no cyanosis or clubbing; no edema Skin: no nodules Objective Data Vital Signs Vital Signs: Vital Signs Temp Pulse Resp BP Pulse Ox O2 Del Method 12/18/24 16:00 98.5 F 87 20 142/84 H 98 12/18/24 08:00 76 98 Room Air 12/18/24 07:58 98.9 F 89 18 147/94 H 99 12/17/24 23:44 94 18 100 12/17/24 20:52 97.8 F 109 H 18 140/72 99 12/17/24 20:00 93 17 98 Room Air 12/17/24 18:40 98.4 F 93 17 148/82 H 98 12/17/24 18:24 91 148/80 H 12/17/24 18:15 98 138/85 12/17/24 18:00 90 150/84 H 12/17/24 17:45 94 142/80 H 12/17/24 17:30 98 146/80 H 12/17/24 17:15 93 146/89 H 12/17/24 17:00 94 148/88 H 12/17/24 16:45 95 153/89 H Intake/Output Intake/Output: Intake & Output 12/15/24 12/16/24 12/17/24 12/18/24 23:59 23:59 23:59 23:59 Intake Total 690 1070 1170 830 Output Total 2500 3200 3000 Balance -1810 -2130 -1830 830 Meds/Results Medications: Active Medications Generic Name Dose Route Start Last Admin Trade Name Waleq PRN Reason Stop Dose Admin Acetaminophen 650 mg 12/10/24 08:43 12/12/24 21:33 Acetaminophen 325 Mg Tablet PO 650 mg Q4H PRN Administration Mild Pain (1-3) or Fever Aspirin 81 mg 12/10/24 09:00 12/18/24 09:14 Aspirin 81 Mg Enteric Tablet PO 81 mg QAM TICO Administration Atorvastatin Calcium 40 mg 12/11/24 09:00 12/18/24 09:14 Atorvastatin 40 Mg Tablet PO 40 mg DAILY TICO Administration Bisacodyl 5 mg 12/10/24 08:43 12/17/24 14:22 Bisacodyl 5 Mg Tablet Ec PO 5 mg DAILY PRN Administration Constipation Bumetanide 2 mg 12/10/24 09:00 12/18/24 09:14 Bumetanide 1 Mg Tablet PO 2 mg DAILY TICO Administration Calcium Acetate 667 mg 12/14/24 08:00 12/18/24 13:21 Calcium Acetate 667 Mg Tablet PO 667 mg TIDWM TICO Administration Heparin Sodium (Porcine) 5,000 units 12/10/24 09:00 12/10/24 14:34 Heparin Sodium 5,000 Units/Ml Vial SUB-Q Not Given Q12HR [facility] Hydralazine HCl 100 mg 12/10/24 09:00 12/18/24 13:21 Hydralazine Hcl 50 Mg Tablet PO 100 mg TID TICO Administration Albumin Human 50 mls @ 999 mls/hr 12/10/24 00:29 Albutein IVPB 01/09/25 00:28 Q10M PRN HYPOTENSION Isosorbide Mononitrate 60 mg 12/10/24 20:00 12/18/24 13:20 Isosorbide Mononitrate 30 Mg Tab.Er.24h PO 60 mg TID@0600,1300,2000 [facility] Administration Nifedipine 90 mg 12/10/24 09:00 12/18/24 09:14 Nifedipine 30 Mg Tab.Er.24 PO 90 mg DAILY TICO Administration Nitroglycerin 0.4 mg 12/10/24 08:43 12/11/24 09:14 Nitroglycerin Sl 0.4 Mg Tablet SUBLINGUAL 0.4 mg Q5MIN PRN Administration Chest Pain Polyethylene Glycol 17 gm 12/17/24 12:54 12/18/24 09:15 Polyethylene Glycol 3350 17 Gm Powd.Pack PO 17 gm QAM PRN Administration Constipation Vitamin D 250 mcg 12/14/24 09:00 12/18/24 09:14 Cholecalciferol (Vitamin D3) 125 Mcg (5,000 Units) Tablet PO 250 mcg DAILY TICO Administration Radiology Results: ITS Impressions Chest/Abdomen/Pelvis CT 12/13/24 14:13 IMPRESSION: CHEST: 1. No acute cardiopulmonary pathology. 2. Trace of effusion seen in the lung bases. Pleural thickening cannot be excluded. ABDOMEN/PELVIS: 1. Polycystic kidneys. 2. Multiple cysts in the liver. 3. Constipation. Abdomen X-Ray 12/17/24 13:20 IMPRESSION: NO ACUTE ABDOMINAL FINDINGS. Constipation. Chest X-Ray 12/18/24 09:31 IMPRESSION: Prominent markings in the right lung base. Early pneumonia should be considered. Clinical evaluation and follow-up advised. Labs Labs: Laboratory Tests 12/17/24 09:00 12/17/24 09:00 Calcium 9.1 Phosphorus 3.6 Magnesium 2.2 Albumin 3.8
[2024-12-18 16:00] VITALS: BP 142/84; PULSE 87; RESP 20; TEMP 36.9; O2SAT 98
--- NOTE | 2024-12-18 16:58 | PM.IMPN ---
Progress Note: A&P Assessment and Plan (1) Acute on chronic combined systolic and diastolic heart failure: Code(s): I50.43 - Acute on chronic combined systolic (congestive) and diastolic (congestive) heart failure Status: Acute (2) Hypertensive urgency: Code(s): I16.0 - Hypertensive urgency Status: Acute (3) Elevated troponin: Code(s): R77.8 - Other specified abnormalities of plasma proteins Status: Acute (4) Chest pain: Code(s): R07.9 - Chest pain, unspecified Status: Acute (5) ESRD (end stage renal disease) on dialysis: Code(s): N18.6 - End stage renal disease; Z99.2 - Dependence on renal dialysis Status: Acute (6) Chronic anemia: Code(s): D64.9 - Anemia, unspecified Status: Acute Plan Chest pain Elevated troponin x2 EKG shows sinus rhythm no specific ST T-wave changes Possible demand ischemia due to acute heart failure, also possible due to NSTEMI Continue aspirin 81 mg b.i.d. p.o., Imdur 30 mg daily p.o. nitroglycerin sublingual p.r.n. Pending echocardiogram threat monitoring analyst consult compositor apprentice for evaluation treatment Cardiac catheterization today showed patent coronary artery Acute on chronic combined heart failure Patient shortness breath, x-ray shows pulmonary congestion Resulting from fluid overload due to missing dialysis Provide Lasix 100 mg IV push once, Consult insulation board back tender for dialysis Patient still fluid overloaded, plans hemodialysis today Hypertension urgency Continue hydralazine 100 mg t.i.d. p.o. Nifedipine 90 mg daily p.o. Labetalol IV p.r.n. Patient fluid overload 80 Consult insulation board back tender controlled in target range Chronic anemia No obvious bleeding Resulting from CKD Management per insulation board back tender stable Fever Patient has been having fever since yesterday evening, temperature 100.2? rn surgery 12/12 Pending blood culture Small left pleural effusion without focal infiltrate chest x-ray on 12/12 on ceftriaxone 2 g IV daily since 12/12 Urinalysis does not suggest your infection, Unclear sources of infection 12/13 CT chest abdomen pelvis did not show pneumonia, abscess, diverticulitis obvious source infection Had low-grade fever 99.9 in the night. On ceftriaxone and add vancomycin, pending respiratory pathogen panel 12/14 blood culture no growth so far, patient is afebrile, changed to Augmentin p.o. 12/15 Patient with history of ESRD on HD, presented with c/o CP and shortness of breath upon arrival patient tropes were elevated patient was seen by the compositor apprentice and had cardiac cath which showed mild CAD, on 12/17 c/o abdominal pain and bloating, KUB showed intestine full of stool gave miralax and Dulcolax suppository and later patient did have a BM, patient still c/o of shortness of breath despite 3 sessions of HD, with ultra filtration, chest x-ray shows early signs of pneumonia, patient lungs has fair entry, will start patient on ceftriaxone and doxycycline, will CTA of chest, will monitor. May discharge patient tomorrow if not fluid overloaded Subjective Date/time seen: 12/18/24 16:58 Interval history: Patient with history of ESRD on HD, presented with c/o CP and shortness of breath upon arrival patient tropes were elevated patient was seen by the compositor apprentice and had cardiac cath which showed mild CAD, on 12/17 c/o abdominal pain and bloating, KUB showed intestine full of stool gave miralax and Dulcolax suppository and later patient did have a BM, patient still c/o of shortness of breath despite 3 sessions of HD, with ultra filtration, chest x-ray shows early signs of pneumonia, patient lungs has fair air entry, will start patient on ceftriaxone and doxycycline, will CTA of chest, will monitor. Review of Systems Review of Systems: RS negative except above Exam Narrative: Patient is comfortable, NAD HEENT: eyes are clear and none icteric LUNGS: Bilateral fair entry with rales and rhonchi HEART: RR S1S2 ABD: BS+, Soft and nontender Lower extremities: no edema SKIN: nonjaundiced Neuro: grossly intact. Objective Data Vital Signs Vital Signs: Vital Signs - 24 hr 12/17/24 17:00 12/17/24 17:15 12/17/24 17:30 Temperature Pulse Rate 94 93 98 Respiratory Rate Blood Pressure 148/88 H 146/89 H 146/80 H Pulse Oximetry Oxygen Delivery 12/17/24 17:45 12/17/24 18:00 12/17/24 18:15 Temperature Pulse Rate 94 90 98 Respiratory Rate Blood Pressure 142/80 H 150/84 H 138/85 Pulse Oximetry Oxygen Delivery 12/17/24 18:24 12/17/24 18:40 12/17/24 20:00 Temperature 36.9 C Pulse Rate 91 93 93 Respiratory Rate 17 17 Blood Pressure 148/80 H 148/82 H Pulse Oximetry 98 98 Oxygen Delivery Room Air 12/17/24 20:52 12/17/24 23:44 12/18/24 07:58 Temperature 36.6 C 37.2 C Pulse Rate 109 H 94 89 Respiratory Rate 18 18 18 Blood Pressure 140/72 147/94 H Pulse Oximetry 99 100 99 Oxygen Delivery 12/18/24 08:00 12/18/24 16:00 Temperature 36.9 C Pulse Rate 76 87 Respiratory Rate 20 Blood Pressure 142/84 H Pulse Oximetry 98 98 Oxygen Delivery Room Air Intake/Output Intake/Output: Intake & Output 12/15/24 12/16/24 12/17/24 12/18/24 23:59 23:59 23:59 23:59 Intake Total 690 1070 1170 830 Output Total 2500 3200 3000 Balance -1810 -2130 -1830 830 Meds/Results Medications: Active Medications Generic Name Dose Route Start Last Admin Trade Name Freq PRN Reason Stop Dose Admin Acetaminophen 650 mg 12/10/24 08:43 12/12/24 21:33 Acetaminophen 325 Mg Tablet PO 650 mg Q4H PRN Administration Mild Pain (1-3) or Fever Aspirin 81 mg 12/10/24 09:00 12/18/24 09:14 Aspirin 81 Mg Enteric Tablet PO 81 mg QAM TICO Administration Atorvastatin Calcium 40 mg 12/11/24 09:00 12/18/24 09:14 Atorvastatin 40 Mg Tablet PO 40 mg DAILY TICO Administration Bisacodyl 5 mg 12/10/24 08:43 12/17/24 14:22 Bisacodyl 5 Mg Tablet Ec PO 5 mg DAILY PRN Administration Constipation Bumetanide 2 mg 12/10/24 09:00 12/18/24 09:14 Bumetanide 1 Mg Tablet PO 2 mg DAILY TICO Administration Calcium Acetate 667 mg 12/14/24 08:00 12/18/24 13:21 Calcium Acetate 667 Mg Tablet PO 667 mg TIDWM TICO Administration Heparin Sodium (Porcine) 5,000 units 12/10/24 09:00 12/10/24 14:34 Heparin Sodium 5,000 Units/Ml Vial SUB-Q Not Given Q12HR [facility] Hydralazine HCl 100 mg 12/10/24 09:00 12/18/24 13:21 Hydralazine Hcl 50 Mg Tablet PO 100 mg TID TICO Administration Albumin Human 50 mls @ 999 mls/hr 12/10/24 00:29 Albutein IVPB 01/09/25 00:28 Q10M PRN HYPOTENSION Isosorbide Mononitrate 60 mg 12/10/24 20:00 12/18/24 13:20 Isosorbide Mononitrate 30 Mg Tab.Er.24h PO 60 mg TID@0600,1300,2000 TICO Administration Nifedipine 90 mg 12/10/24 09:00 12/18/24 09:14 Nifedipine 30 Mg Tab.Er.24 PO 90 mg DAILY TICO Administration Nitroglycerin 0.4 mg 12/10/24 08:43 12/11/24 09:14 Nitroglycerin Sl 0.4 Mg Tablet SUBLINGUAL 0.4 mg Q5MIN PRN Administration Chest Pain Polyethylene Glycol 17 gm 12/17/24 12:54 12/18/24 09:15 Polyethylene Glycol 3350 17 Gm Powd.Pack PO 17 gm QAM PRN Administration Constipation Vitamin D 250 mcg 12/14/24 09:00 12/18/24 09:14 Cholecalciferol (Vitamin D3) 125 Mcg (5,000 Units) Tablet PO 250 mcg DAILY TICO Administration Radiology Results: ITS Impressions Chest/Abdomen/Pelvis CT 12/13/24 14:13 IMPRESSION: CHEST: 1. No acute cardiopulmonary pathology. 2. Trace of effusion seen in the lung bases. Pleural thickening cannot be excluded. ABDOMEN/PELVIS: 1. Polycystic kidneys. 2. Multiple cysts in the liver. 3. Constipation. Abdomen X-Ray 12/17/24 13:20 IMPRESSION: NO ACUTE ABDOMINAL FINDINGS. Constipation. Chest X-Ray 12/18/24 09:31 IMPRESSION: Prominent markings in the right lung base. Early pneumonia should be considered. Clinical evaluation and follow-up advised.
[2024-12-18] MEDS: cefTRIAXone 1 GM in SODIUM CHLORIDE 0.9% IV 50 ML 100 ML IVPB (17:45)
[2024-12-18] MEDS: DOXYCYCLINE IV 100 MG in SODIUM CHLORIDE 0.9% IV 100 ML IVPB (18:12)
[2024-12-18 21:26] VITALS: O2SAT 98
[2024-12-18 22:00] VITALS: BP 130/74; PULSE 93; RESP 18; TEMP 36.6; O2SAT 98
[2024-12-19] VITALS (20 sets, daily range): BP systolic 120–153; BP diastolic 67–85; PULSE 74–96; RESP 16–18; TEMP 35.7–37.6; O2SAT 97–100
[2024-12-19] MEDS: ISOSORBIDE MONONITRATE 30 MG TAB.ER.24H 60 MG PO ×3 (06:08→20:15)
[2024-12-19] MEDS: DOXYCYCLINE IV 100 MG in SODIUM CHLORIDE 0.9% IV 100 ML IVPB (06:08)
[2024-12-19 06:18] LABS: Hematocrit 26.4 % (42.0-52.0); Hemoglobin 8.4 g/dL (14.0-18.0); Immature Granulocyte Percent A 0.2 % (0-0.5); Lymphocytes Absolute Auto 1.35 K/mm3 (0.9-3.2); Mean Corpuscular HGB Conc 31.8 g/dl (32-36); Mean Corpuscular Hemoglobin 29.3 pg (26-34); Mean Corpuscular Volume 92.0 fl (80-100); Nucleated Red Blood Cells Absolute Auto 0.000 K/mm3 (0.0-0.012); Nucleated Red Blood Cells Perc 0.0 % (0.0-0.2); Platelet Count Result 191 k/mm3 (150-375); Red Blood Count 2.87 M/mm3 (4.6-6.20); White Blood Count 4.1 K/mm3 (4.5-10.0)
[2024-12-19 06:43] LABS: Albumin Level 3.8 g/dL (3.5-5.1); Anion Gap 12 mmol/L (4-12); Blood Urea Nitrogen 42 mg/dL (9-20); Calcium 8.8 mg/dL (8.4-10.2); Carbon Dioxide 25 mmol/L (22-30); Chloride 99 mmol/L (98-107); Estimated CRCL calculation 8 ml/min; Estimated Glomerular Filt Rate 5; Glucose 91 mg/dL (65-110); Potassium 5.0 mmol/L (3.4-5.0); Sodium 136 mmol/L (137-145)
[2024-12-19] MEDS: SODIUM CHLORIDE 0.9% IV 1,000 ML 999 ML IV CONT (10:04)
[2024-12-19] MEDS: EPOETIN ALFA-EPBX 10,000 UNITS/ML VIAL 10000 UNITS IV PUSH (10:04)
--- NOTE | 2024-12-19 11:34 | P.PNNP_ITS ---
Progress Note: A&P Assessment and Plan (1) End stage renal disease: Code(s): N18.6 - End stage renal disease Status: Chronic Assessment and Plan: * HD underway * volume status doing well after removing 8L over 3 days. * interestingly his admissoin cxr shows no pulmonary edema * potassium okay * outpatient dialysis unit = [facility] (2) Chest pain: Code(s): R07.9 - Chest pain, unspecified Status: Acute Assessment and Plan: * clinically better/resolved * troponin trend and EKG noted * Cardiology recommendations noted * s/p cardiac catheterization - only mild CAD noted * continue ongoing medical management (3) SOB (shortness of breath): Code(s): R06.02 - Shortness of breath Status: Acute Assessment and Plan: * breathing better today * 'off oxygen (4) Fever: Code(s): R50.9 - Fever, unspecified Status: Acute Assessment and Plan: * resolved * elevated WBC normalized * cultures negative today * viral studies results negative as well * CT of C/A/P unrevealing * continue supportive therapy * on antibiotics (5) Hypertension: Code(s): I10 - Essential (primary) hypertension Status: Chronic Assessment and Plan: * better at this time * resumed on home medications * fluid removal with HD may help to some degree * follow trend of hemodynamics (6) Anemia: Code(s): D64.9 - Anemia, unspecified Status: Chronic Assessment and Plan: * due to ESRD * Epogen with HD * follow trend of H/H (7) Polycystic kidney disease: Code(s): Q61.3 - Polycystic kidney, unspecified Status: Chronic Assessment and Plan: * known diagnosis * etiology of ESRD Subjective Date/time seen: 12/19/24 11:34 Interval history: pt is alert no sob no cp minimal cough now. on HD carin it well. removing 2L today. bp is goo. seen at 9:40am Exam Narrative: General: WD/WN male in NAD Heart: normal S1 and S2; no rub Lungs: decreased at bases Abdomen: soft, nontender, nondistended, positive bowel sounds Extremities: no cyanosis or clubbing; no edema Skin: no rash Objective Data Vital Signs Vital Signs: Vital Signs - 24 hr 12/18/24 16:00 12/18/24 21:26 12/18/24 22:00 Temperature 98.5 F 98 F Pulse Rate 87 93 Respiratory Rate 20 18 Blood Pressure 142/84 H 130/74 Pulse Oximetry 98 98 98 Oxygen Delivery Room Air 12/19/24 06:00 12/19/24 07:45 12/19/24 07:56 Temperature 97.8 F 99.7 F H Pulse Rate 85 84 83 Respiratory Rate 18 16 Blood Pressure 122/67 124/80 124/75 Pulse Oximetry 99 100 Oxygen Delivery 12/19/24 08:15 12/19/24 08:30 12/19/24 08:45 Temperature Pulse Rate 79 80 81 Respiratory Rate Blood Pressure 142/82 H 140/84 136/81 Pulse Oximetry Oxygen Delivery 12/19/24 09:00 12/19/24 09:15 12/19/24 09:30 Temperature Pulse Rate 80 76 74 Respiratory Rate Blood Pressure 140/82 146/79 H 150/81 H Pulse Oximetry Oxygen Delivery 12/19/24 09:45 12/19/24 10:00 12/19/24 10:15 Temperature Pulse Rate 82 93 91 Respiratory Rate Blood Pressure 148/76 H 144/83 H 153/72 H Pulse Oximetry Oxygen Delivery 12/19/24 10:30 12/19/24 10:45 12/19/24 11:00 Temperature Pulse Rate 92 91 85 Respiratory Rate Blood Pressure 142/83 H 135/81 139/80 Pulse Oximetry Oxygen Delivery 12/19/24 11:15 Temperature Pulse Rate 83 Respiratory Rate Blood Pressure 142/75 H Pulse Oximetry Oxygen Delivery Intake/Output Intake/Output: Intake & Output 12/16/24 12/17/24 12/18/24 12/19/24 23:59 23:59 23:59 23:59 Intake Total 1070 1170 1500 550 Output Total 3200 3000 Balance -2130 -1830 1500 550 Meds/Results Medications: Active Medications Generic Name Dose Route Start Last Admin Trade Name Freq PRN Reason Stop Dose Admin Acetaminophen 650 mg 12/10/24 08:43 12/12/24 21:33 Acetaminophen 325 Mg Tablet PO 650 mg Q4H PRN Administration Mild Pain (1-3) or Fever Aspirin 81 mg 12/10/24 09:00 12/18/24 09:14 Aspirin 81 Mg Enteric Tablet PO 81 mg QAM TICO Administration Atorvastatin Calcium 40 mg 12/11/24 09:00 12/18/24 09:14 Atorvastatin 40 Mg Tablet PO 40 mg DAILY TICO Administration Bisacodyl 5 mg 12/10/24 08:43 12/17/24 14:22 Bisacodyl 5 Mg Tablet Ec PO 5 mg DAILY PRN Administration Constipation Bumetanide 2 mg 12/10/24 09:00 12/18/24 09:14 Bumetanide 1 Mg Tablet PO 2 mg DAILY TICO Administration Calcium Acetate 667 mg 12/14/24 08:00 12/18/24 17:48 Calcium Acetate 667 Mg Tablet PO 667 mg TIDWM TICO Administration Doxycycline Hyclate 100 mg 12/19/24 21:00 Doxycycline Hyclate 100 Mg Tablet PO 12/23/24 09:01 Q12HR TICO Epoetin Iggy-epbx 10,000 units 12/19/24 17:09 12/19/24 10:04 Epoetin Iggy-Epbx 10,000 Units/Ml Vial IV PUSH 12/19/24 17:10 10,000 units ONCE ONE Administration Heparin Sodium (Porcine) 5,000 units 12/10/24 09:00 12/10/24 14:34 Heparin Sodium 5,000 Units/Ml Vial SUB-Q Not Given Q12HR TICO Hydralazine HCl 100 mg 12/10/24 09:00 12/18/24 17:48 Hydralazine Hcl 50 Mg Tablet PO 100 mg TID TICO Administration Albumin Human 50 mls @ 999 mls/hr 12/10/24 00:29 Albutein IVPB 01/09/25 00:28 Q10M PRN HYPOTENSION Ceftriaxone Sodium 1 gm/ 50 mls @ 100 mls/hr 12/18/24 17:00 12/18/24 17:45 Sodium Chloride IVPB 12/21/24 23:59 100 mls/hr Q24H TICO Administration Isosorbide Mononitrate 60 mg 12/10/24 20:00 12/19/24 06:08 Isosorbide Mononitrate 30 Mg Tab.Er.24h PO 60 mg TID@0600,1300,2000 TICO Administration Nifedipine 90 mg 12/10/24 09:00 12/18/24 09:14 Nifedipine 30 Mg Tab.Er.24 PO 90 mg DAILY TICO Administration Nitroglycerin 0.4 mg 12/10/24 08:43 12/11/24 09:14 Nitroglycerin Sl 0.4 Mg Tablet SUBLINGUAL 0.4 mg Q5MIN PRN Administration Chest Pain Polyethylene Glycol 17 gm 12/17/24 12:54 12/18/24 09:15 Polyethylene Glycol 3350 17 Gm Powd.Pack PO 17 gm QAM PRN Administration Constipation Vitamin D 250 mcg 12/14/24 09:00 12/18/24 09:14 Cholecalciferol (Vitamin D3) 125 Mcg (5,000 Units) Tablet PO 250 mcg DAILY TICO Administration Radiology Results: ITS Impressions Chest/Abdomen/Pelvis CT 12/13/24 14:13 IMPRESSION: CHEST: 1. No acute cardiopulmonary pathology. 2. Trace of effusion seen in the lung bases. Pleural thickening cannot be excluded. ABDOMEN/PELVIS: 1. Polycystic kidneys. 2. Multiple cysts in the liver. 3. Constipation. Abdomen X-Ray 12/17/24 13:20 IMPRESSION: NO ACUTE ABDOMINAL FINDINGS. Constipation. Chest X-Ray 12/18/24 09:31 IMPRESSION: Prominent markings in the right lung base. Early pneumonia should be considered. Clinical evaluation and follow-up advised. Chest CTA 12/18/24 17:07 IMPRESSION: 1. . No pulmonary embolism. 2. No acute cardiopulmonary pathology. 3. Polycystic disease with cysts in the kidneys and the liver. 4. Sliding hiatus hernia. Labs Labs: Laboratory Results - last 24 hr 12/14/24 12/19/24 18:21 06:03 WBC 4.1 L RBC 2.87 L Hgb 8.4 L Hct 26.4 L MCV 92.0 MCH 29.3 MCHC 31.8 L RDW 16.4 H Plt Count 191 MPV 8.9 Immature Gran % (Auto) 0.2 Neut % (Auto) 49.3 Lymph % (Auto) 33.3 [place] % (Auto) 12.8 H Eos % (Auto) 4.2 Baso % (Auto) 0.2 Lymph # (Auto) 1.35 [place] # (Auto) 0.5 Eos # (Auto) 0.2 Baso # (Auto) 0.0 Abs Immat Gran (auto) 0.01 Absolute Neuts (auto) 2.0 Absolute Nucleated RBC 0.000 Nucleated RBC % 0.0 Sodium 136 L Potassium 5.0 Chloride 99 Carbon Dioxide 25 Anion Gap 12 BUN 42 H D Creatinine 10.56 H Estim Creat Clear Calc 8 Estimated GFR 5 L Glucose 91 Calcium 8.8 Phosphorus 4.6 H Albumin 3.8 Chlamy pneumoniae PCR Not detected Adenovirus (PCR) Not detected B. pertussis DNA (PCR) Not detected B.parapertussis DNA PCR Not detected Coronavirus OC43 (PCR) Not detected Coronavirus HKU1 (PCR) Not detected Coronavirus 229E (PCR) Not detected Coronavirus NL63 (PCR) Not detected Human Metapneumovir PCR Not detected Influenza A (H1) PCR Not detected Influ A (H1/09) PCR Not detected Influenza A (H3) PCR Not detected Influenza Type A (PCR) Not detected Influenza Type B (PCR) Not detected M. pneumoniae (PCR) Not detected Parainfluenza 1 (PCR) Not detected Parainfluenza 2 (PCR) Not detected Parainfluenza 3 (PCR) Not detected Parainfluenza 4 (PCR) Not detected RSV (PCR) Not detected Entero/Rhino (PCR) Not detected SARS-CoV-2 (PCR) Not detected
[2024-12-19] MEDS: BUMETANIDE 1 MG TABLET 2 MG PO (12:20)
[2024-12-19] MEDS: CALCIUM ACETATE 667 MG TABLET PO ×2 (12:20→17:03)
[2024-12-19] MEDS: CHOLECALCIFEROL (VITAMIN D3) 125 MCG (5,000 UNITS) TABLET 250 MCG PO (12:20)
[2024-12-19] MEDS: ATORVASTATIN 40 MG TABLET PO (12:20)
[2024-12-19] MEDS: ASPIRIN 81 MG ENTERIC TABLET PO (12:20)
--- NOTE | 2024-12-19 16:28 | P.PNIM_ITS ---
Progress Note: A&P Assessment and Plan (1) Acute on chronic combined systolic and diastolic heart failure: Code(s): I50.43 - Acute on chronic combined systolic (congestive) and diastolic (congestive) heart failure Status: Acute (2) Hypertensive urgency: Code(s): I16.0 - Hypertensive urgency Status: Acute (3) Elevated troponin: Code(s): R77.8 - Other specified abnormalities of plasma proteins Status: Acute (4) Chest pain: Code(s): R07.9 - Chest pain, unspecified Status: Acute (5) ESRD (end stage renal disease) on dialysis: Code(s): N18.6 - End stage renal disease; Z99.2 - Dependence on renal dialysis Status: Acute (6) Chronic anemia: Code(s): D64.9 - Anemia, unspecified Status: Acute Plan Chest pain Elevated troponin x2 EKG shows sinus rhythm no specific ST T-wave changes Possible demand ischemia due to acute heart failure, also possible due to NSTEMI Continue aspirin 81 mg b.i.d. p.o., Imdur 30 mg daily p.o. nitroglycerin sublingual p.r.n. Pending echocardiogram conveyor monitor consult rubber goods assembler for evaluation treatment Cardiac catheterization today showed patent coronary artery Acute on chronic combined heart failure Patient shortness breath, x-ray shows pulmonary congestion Resulting from fluid overload due to missing dialysis Provide Lasix 100 mg IV push once, Consult business process specialist for dialysis Patient still fluid overloaded, plans hemodialysis today Hypertension urgency Continue hydralazine 100 mg t.i.d. p.o. Nifedipine 90 mg daily p.o. Labetalol IV p.r.n. Patient fluid overload 80 Consult business process specialist controlled in target range Chronic anemia No obvious bleeding Resulting from CKD Management per business process specialist stable Fever Patient has been having fever since yesterday evening, temperature 100.2? skiver blockers 12/12 Pending blood culture Small left pleural effusion without focal infiltrate chest x-ray on 12/12 on ceftriaxone 2 g IV daily since 12/12 Urinalysis does not suggest your infection, Unclear sources of infection 12/13 CT chest abdomen pelvis did not show pneumonia, abscess, diverticulitis obvious source infection Had low-grade fever 99.9 in the night. On ceftriaxone and add vancomycin, pending respiratory pathogen panel 12/14 blood culture no growth so far, patient is afebrile, changed to Augmentin p.o. 12/15 Patient with history of ESRD on HD, presented with c/o CP and shortness of breath upon arrival patient tropes were elevated patient was seen by the rubber goods assembler and had cardiac cath which showed mild CAD, on 12/17 c/o abdominal pain and bloating, KUB showed intestine full of stool gave miralax and Dulcolax suppository and later patient did have a BM, patient still c/o of shortness of breath despite 3 sessions of HD, with ultra filtration, chest x-ray shows early signs of pneumonia, patient lungs has fair entry, will start patient on ceftriaxone and doxycycline, will CTA of chest, will monitor. today patient stats he is feeling much better and not as short of breath, CTA of chest was negative for PE, patient just had dialysis, will monitor today and will discharge patient tomorrow. May discharge patient tomorrow if not fluid overloaded Subjective Date/time seen: 12/19/24 16:28 Interval history: Patient with history of ESRD on HD, presented with c/o CP and shortness of breath upon arrival patient tropes were elevated patient was seen by the rubber goods assembler and had cardiac cath which showed mild CAD, on 12/17 c/o abdominal pain and bloating, KUB showed intestine full of stool gave miralax and Dulcolax suppository and later patient did have a BM, patient still c/o of shortness of breath despite 3 sessions of HD, with ultra filtration, chest x-ray shows early signs of pneumonia, patient lungs has fair air entry, will start patient on ceftriaxone and doxycycline, will CTA of chest, will monitor. today patient stats he is feeling much better and not as short of breath, CTA of chest was negative for PE, patient just had dialysis, will monitor today and will discharge patient tomorrow. Review of Systems Review of Systems: RS negative except above Exam Narrative: Patient is comfortable, NAD HEENT: eyes are clear and none icteric LUNGS: Bilateral fair entry with rales and rhonchi HEART: RR S1S2 ABD: BS+, Soft and nontender Lower extremities: no edema SKIN: nonjaundiced Neuro: grossly intact. Objective Data Vital Signs Vital Signs: Vital Signs - 24 hr 12/18/24 21:26 12/18/24 22:00 12/19/24 06:00 Temperature 36.6 C 36.6 C Pulse Rate 93 85 Respiratory Rate 18 18 Blood Pressure 130/74 122/67 Pulse Oximetry 98 98 99 Oxygen Delivery Room Air 12/19/24 07:45 12/19/24 07:56 12/19/24 08:15 Temperature 37.6 C H Pulse Rate 84 83 79 Respiratory Rate 16 Blood Pressure 124/80 124/75 142/82 H Pulse Oximetry 100 Oxygen Delivery 12/19/24 08:30 12/19/24 08:45 12/19/24 09:00 Temperature Pulse Rate 80 81 80 Respiratory Rate Blood Pressure 140/84 136/81 140/82 Pulse Oximetry Oxygen Delivery 12/19/24 09:15 12/19/24 09:30 12/19/24 09:45 Temperature Pulse Rate 76 74 82 Respiratory Rate Blood Pressure 146/79 H 150/81 H 148/76 H Pulse Oximetry Oxygen Delivery 12/19/24 10:00 12/19/24 10:15 12/19/24 10:30 Temperature Pulse Rate 93 91 92 Respiratory Rate Blood Pressure 144/83 H 153/72 H 142/83 H Pulse Oximetry Oxygen Delivery 12/19/24 10:45 12/19/24 11:00 12/19/24 11:15 Temperature Pulse Rate 91 85 83 Respiratory Rate Blood Pressure 135/81 139/80 142/75 H Pulse Oximetry Oxygen Delivery 12/19/24 11:27 12/19/24 11:35 12/19/24 12:00 Temperature 37.6 C H Pulse Rate 83 82 Respiratory Rate 16 Blood Pressure 138/79 140/85 Pulse Oximetry 100 Oxygen Delivery Room Air 12/19/24 15:30 Temperature 36.7 C Pulse Rate 96 Respiratory Rate 16 Blood Pressure 120/74 Pulse Oximetry 97 Oxygen Delivery Intake/Output Intake/Output: Intake & Output 12/16/24 12/17/24 12/18/24 12/19/24 23:59 23:59 23:59 23:59 Intake Total 1070 1170 1500 1030 Output Total 3200 3000 2000 Balance -2130 -1830 1500 -970 Meds/Results Medications: Active Medications Generic Name Dose Route Start Last Admin Trade Name Freq PRN Reason Stop Dose Admin Acetaminophen 650 mg 12/10/24 08:43 12/12/24 21:33 Acetaminophen 325 Mg Tablet PO 650 mg Q4H PRN Administration Mild Pain (1-3) or Fever Aspirin 81 mg 12/10/24 09:00 12/19/24 12:20 Aspirin 81 Mg Enteric Tablet PO 81 mg QAM TICO Administration Atorvastatin Calcium 40 mg 12/11/24 09:00 12/19/24 12:20 Atorvastatin 40 Mg Tablet PO 40 mg DAILY TICO Administration Bisacodyl 5 mg 12/10/24 08:43 12/17/24 14:22 Bisacodyl 5 Mg Tablet Ec PO 5 mg DAILY PRN Administration Constipation Bumetanide 2 mg 12/10/24 09:00 12/19/24 12:20 Bumetanide 1 Mg Tablet PO 2 mg DAILY [facility] Administration Calcium Acetate 667 mg 12/14/24 08:00 12/19/24 12:20 Calcium Acetate 667 Mg Tablet PO 667 mg TIDWM TICO Administration Doxycycline Hyclate 100 mg 12/19/24 21:00 Doxycycline Hyclate 100 Mg Tablet PO 12/23/24 09:01 Q12HR [facility] Epoetin Iggy-epbx 10,000 units 12/19/24 17:09 12/19/24 10:04 Epoetin Iggy-Epbx 10,000 Units/Ml Vial IV PUSH 12/19/24 17:10 10,000 units ONCE ONE Administration Heparin Sodium (Porcine) 5,000 units 12/10/24 09:00 12/10/24 14:34 Heparin Sodium 5,000 Units/Ml Vial SUB-Q Not Given Q12HR [facility] Hydralazine HCl 100 mg 12/10/24 09:00 12/19/24 12:21 Hydralazine Hcl 50 Mg Tablet PO 100 mg TID [facility] Administration Albumin Human 50 mls @ 999 mls/hr 12/10/24 00:29 Albutein IVPB 01/09/25 00:28 Q10M PRN HYPOTENSION Isosorbide Mononitrate 60 mg 12/10/24 20:00 12/19/24 12:24 Isosorbide Mononitrate 30 Mg Tab.Er.24h PO 60 mg TID@0600,1300,2000 [facility] Administration Nifedipine 90 mg 12/10/24 09:00 12/19/24 12:20 Nifedipine 30 Mg Tab.Er.24 PO 90 mg DAILY [facility] Administration Nitroglycerin 0.4 mg 12/10/24 08:43 12/11/24 09:14 Nitroglycerin Sl 0.4 Mg Tablet SUBLINGUAL 0.4 mg Q5MIN PRN Administration Chest Pain Polyethylene Glycol 17 gm 12/17/24 12:54 12/18/24 09:15 Polyethylene Glycol 3350 17 Gm Powd.Pack PO 17 gm QAM PRN Administration Constipation Vitamin D 250 mcg 12/14/24 09:00 12/19/24 12:20 Cholecalciferol (Vitamin D3) 125 Mcg (5,000 Units) Tablet PO 250 mcg DAILY TICO Administration Radiology Results: ITS Impressions Chest/Abdomen/Pelvis CT 12/13/24 14:13 IMPRESSION: CHEST: 1. No acute cardiopulmonary pathology. 2. Trace of effusion seen in the lung bases. Pleural thickening cannot be excluded. ABDOMEN/PELVIS: 1. Polycystic kidneys. 2. Multiple cysts in the liver. 3. Constipation. Abdomen X-Ray 12/17/24 13:20 IMPRESSION: NO ACUTE ABDOMINAL FINDINGS. Constipation. Chest X-Ray 12/18/24 09:31 IMPRESSION: Prominent markings in the right lung base. Early pneumonia should be considered. Clinical evaluation and follow-up advised. Chest CTA 12/18/24 17:07 IMPRESSION: 1. . No pulmonary embolism. 2. No acute cardiopulmonary pathology. 3. Polycystic disease with cysts in the kidneys and the liver. 4. Sliding hiatus hernia. Labs Labs: Laboratory Results - last 24 hr 12/14/24 12/19/24 18:21 06:03 WBC 4.1 L RBC 2.87 L Hgb 8.4 L Hct 26.4 L MCV 92.0 MCH 29.3 MCHC 31.8 L RDW 16.4 H Plt Count 191 MPV 8.9 Immature Gran % (Auto) 0.2 Neut % (Auto) 49.3 Lymph % (Auto) 33.3 [place] % (Auto) 12.8 H Eos % (Auto) 4.2 Baso % (Auto) 0.2 Lymph # (Auto) 1.35 [place] # (Auto) 0.5 Eos # (Auto) 0.2 Baso # (Auto) 0.0 Abs Immat Gran (auto) 0.01 Absolute Neuts (auto) 2.0 Absolute Nucleated RBC 0.000 Nucleated RBC % 0.0 Sodium 136 L Potassium 5.0 Chloride 99 Carbon Dioxide 25 Anion Gap 12 BUN 42 H D Creatinine 10.56 H Estim Creat Clear Calc 8 Estimated GFR 5 L Glucose 91 Calcium 8.8 Phosphorus 4.6 H Albumin 3.8 Chlamy pneumoniae PCR Not detected Adenovirus (PCR) Not detected B. pertussis DNA (PCR) Not detected B.parapertussis DNA PCR Not detected Coronavirus OC43 (PCR) Not detected Coronavirus HKU1 (PCR) Not detected Coronavirus 229E (PCR) Not detected Coronavirus NL63 (PCR) Not detected Human Metapneumovir PCR Not detected Influenza A (H1) PCR Not detected Influ A (H1/09) PCR Not detected Influenza A (H3) PCR Not detected Influenza Type A (PCR) Not detected Influenza Type B (PCR) Not detected M. pneumoniae (PCR) Not detected Parainfluenza 1 (PCR) Not detected Parainfluenza 2 (PCR) Not detected Parainfluenza 3 (PCR) Not detected Parainfluenza 4 (PCR) Not detected RSV (PCR) Not detected Entero/Rhino (PCR) Not detected SARS-CoV-2 (PCR) Not detected
[2024-12-19] MEDS: DOXYCYCLINE HYCLATE 100 MG TABLET PO (20:14)
[2024-12-20 04:05] VITALS: BP 132/89; PULSE 82; RESP 20; TEMP 36; O2SAT 99
[2024-12-20] MEDS: ISOSORBIDE MONONITRATE 30 MG TAB.ER.24H 60 MG PO ×3 (05:11→21:12)
[2024-12-20 06:39] LABS: Albumin Level 3.7 g/dL (3.5-5.1); Anion Gap 10 mmol/L (4-12); Blood Urea Nitrogen 33 mg/dL (9-20); Calcium 8.8 mg/dL (8.4-10.2); Carbon Dioxide 24 mmol/L (22-30); Chloride 103 mmol/L (98-107); Estimated CRCL calculation 9 ml/min; Estimated Glomerular Filt Rate 6; Glucose 87 mg/dL (65-110); Potassium 4.8 mmol/L (3.4-5.0); Sodium 137 mmol/L (137-145)
[2024-12-20] MEDS: CALCIUM ACETATE 667 MG TABLET PO ×3 (08:49→16:43)
[2024-12-20] MEDS: BUMETANIDE 1 MG TABLET 2 MG PO (08:50)
[2024-12-20] MEDS: ATORVASTATIN 40 MG TABLET PO (08:50)
[2024-12-20] MEDS: ASPIRIN 81 MG ENTERIC TABLET PO (08:50)
[2024-12-20] MEDS: CHOLECALCIFEROL (VITAMIN D3) 125 MCG (5,000 UNITS) TABLET 250 MCG PO (08:50)
[2024-12-20] MEDS: DOXYCYCLINE HYCLATE 100 MG TABLET PO ×2 (08:50→21:12)
--- NOTE | 2024-12-20 10:33 | P.PNNP_ITS ---
Progress Note: A&P Assessment and Plan (1) End stage renal disease: Code(s): N18.6 - End stage renal disease Status: Chronic Assessment and Plan: * HD went well yesterday. * volume status doing well after removing 8L over 3 days. * interestingly his admissoin cxr showed no pulmonary edema * potassium okay * outpatient dialysis unit = [facility] (2) Chest pain: Code(s): R07.9 - Chest pain, unspecified Status: Acute Assessment and Plan: * clinically better/resolved * troponin trend and EKG noted * Cardiology recommendations noted * s/p cardiac catheterization - only mild CAD noted * continue ongoing medical management (3) SOB (shortness of breath): Code(s): R06.02 - Shortness of breath Status: Acute Assessment and Plan: * The patient says he short of breath again. * No signs of volume overload. * he does have some rhonchi and his symptoms almost sound like some reversible airways disease. * I talked with Dr. Mortensen * he will prescribe inhalers. * off oxygen (4) Fever: Code(s): R50.9 - Fever, unspecified Status: Acute Assessment and Plan: * resolved * elevated WBC normalized * cultures negative today * viral studies results negative as well * CT of C/A/P unrevealing * continue supportive therapy * on Ceftriaxone and doxycycline (5) Hypertension: Code(s): I10 - Essential (primary) hypertension Status: Chronic Assessment and Plan: * systolic under good control in the 120s to 140 (6) Anemia: Code(s): D64.9 - Anemia, unspecified Status: Chronic Assessment and Plan: * due to ESRD * Epogen with HD * hemoglobin 8.4. (7) Polycystic kidney disease: Code(s): Q61.3 - Polycystic kidney, unspecified Status: Chronic Assessment and Plan: * known diagnosis * etiology of ESRD Subjective Date/time seen: 12/20/24 10:33 Interval history: patient is alert. Still short of breath. I feel like I am breathing through a sponge Exam Narrative: General: WD/WN male in NAD Heart: normal S1 and S2; no rub or gallop Lungs: decreased at bases , Some expiratory and expiratory rhonchi. Abdomen: soft, nontender, nondistended, positive bowel sounds Extremities: no cyanosis or clubbing; no edema Skin: no rash or subcu nodules Objective Data Vital Signs Vital Signs: Vital Signs - 24 hr 12/19/24 10:45 12/19/24 11:00 12/19/24 11:15 Temperature Pulse Rate 91 85 83 Respiratory Rate Blood Pressure 135/81 139/80 142/75 H Pulse Oximetry Oxygen Delivery 12/19/24 11:27 12/19/24 11:35 12/19/24 12:00 Temperature 99.7 F H Pulse Rate 83 82 Respiratory Rate 16 Blood Pressure 138/79 140/85 Pulse Oximetry 100 Oxygen Delivery Room Air 12/19/24 15:30 12/19/24 20:00 12/19/24 20:05 Temperature 98.1 F 97.3 F L Pulse Rate 96 93 Respiratory Rate 16 16 Blood Pressure 120/74 138/67 Pulse Oximetry 97 98 Oxygen Delivery Room Air 12/20/24 04:05 Temperature 96.8 F L Pulse Rate 82 Respiratory Rate 20 Blood Pressure 132/89 Pulse Oximetry 99 Oxygen Delivery Intake/Output Intake/Output: Intake & Output 12/17/24 12/18/24 12/19/24 12/20/24 23:59 23:59 23:59 23:59 Intake Total 1170 1500 1270 846 Output Total 3000 2000 Balance -1830 1500 -730 846 Meds/Results Medications: Active Medications Generic Name Dose Route Start Last Admin Trade Name Freq PRN Reason Stop Dose Admin Acetaminophen 650 mg 12/10/24 08:43 12/12/24 21:33 Acetaminophen 325 Mg Tablet PO 650 mg Q4H PRN Administration Mild Pain (1-3) or Fever Aspirin 81 mg 12/10/24 09:00 12/20/24 08:50 Aspirin 81 Mg Enteric Tablet PO 81 mg QAM TICO Administration Atorvastatin Calcium 40 mg 12/11/24 09:00 12/20/24 08:50 Atorvastatin 40 Mg Tablet PO 40 mg DAILY TICO Administration Bisacodyl 5 mg 12/10/24 08:43 12/17/24 14:22 Bisacodyl 5 Mg Tablet Ec PO 5 mg DAILY PRN Administration Constipation Bumetanide 2 mg 12/10/24 09:00 12/20/24 08:50 Bumetanide 1 Mg Tablet PO 2 mg DAILY TICO Administration Calcium Acetate 667 mg 12/14/24 08:00 12/20/24 08:49 Calcium Acetate 667 Mg Tablet PO 667 mg TIDWM TICO Administration Doxycycline Hyclate 100 mg 12/19/24 21:00 12/20/24 08:50 Doxycycline Hyclate 100 Mg Tablet PO 12/23/24 09:01 100 mg Q12HR TICO Administration Heparin Sodium (Porcine) 5,000 units 12/10/24 09:00 12/10/24 14:34 Heparin Sodium 5,000 Units/Ml Vial SUB-Q Not Given Q12HR [facility] Hydralazine HCl 100 mg 12/10/24 09:00 12/20/24 08:49 Hydralazine Hcl 50 Mg Tablet PO 100 mg TID TICO Administration Albumin Human 50 mls @ 999 mls/hr 12/10/24 00:29 Albutein IVPB 01/09/25 00:28 Q10M PRN HYPOTENSION Isosorbide Mononitrate 60 mg 12/10/24 20:00 12/20/24 05:11 Isosorbide Mononitrate 30 Mg Tab.Er.24h PO 60 mg TID@0600,1300,2000 TICO Administration Nifedipine 90 mg 12/10/24 09:00 12/20/24 08:50 Nifedipine 30 Mg Tab.Er.24 PO 90 mg DAILY TICO Administration Nitroglycerin 0.4 mg 12/10/24 08:43 12/11/24 09:14 Nitroglycerin Sl 0.4 Mg Tablet SUBLINGUAL 0.4 mg Q5MIN PRN Administration Chest Pain Polyethylene Glycol 17 gm 12/17/24 12:54 12/18/24 09:15 Polyethylene Glycol 3350 17 Gm Powd.Pack PO 17 gm QAM PRN Administration Constipation Vitamin D 250 mcg 12/14/24 09:00 12/20/24 08:50 Cholecalciferol (Vitamin D3) 125 Mcg (5,000 Units) Tablet PO 250 mcg DAILY TICO Administration Radiology Results: ITS Impressions Chest/Abdomen/Pelvis CT 12/13/24 14:13 IMPRESSION: CHEST: 1. No acute cardiopulmonary pathology. 2. Trace of effusion seen in the lung bases. Pleural thickening cannot be excluded. ABDOMEN/PELVIS: 1. Polycystic kidneys. 2. Multiple cysts in the liver. 3. Constipation. Abdomen X-Ray 12/17/24 13:20 IMPRESSION: NO ACUTE ABDOMINAL FINDINGS. Constipation. Chest X-Ray 07/17/25 09:31 IMPRESSION: Prominent markings in the right lung base. Early pneumonia should be considered. Clinical evaluation and follow-up advised. Chest CTA 12/18/24 17:07 IMPRESSION: 1. . No pulmonary embolism. 2. No acute cardiopulmonary pathology. 3. Polycystic disease with cysts in the kidneys and the liver. 4. Sliding hiatus hernia. Labs Labs: Laboratory Results - last 24 hr 12/20/24 05:53 Sodium 137 Potassium 4.8 Chloride 103 Carbon Dioxide 24 Anion Gap 10 BUN 33 H Creatinine 8.74 H Estim Creat Clear Calc 9 Estimated GFR 6 L Glucose 87 Calcium 8.8 Phosphorus 4.3 Albumin 3.7
[2024-12-20 11:07] VITALS: PULSE 85; RESP 20; O2SAT 96
--- NOTE | 2024-12-20 11:09 | PCRCNOTE ---
RT called to give pt breathing treatment. Treatment not scheduled until 1400. Pt was assessed BS clear SATS 95% no distress or SOB noted . No treatment given at this time.
[2024-12-20] MEDS: IPRATROPIUM 0.5 MG/ALBUTEROL SULFATE 2.5 MG AMPUL.NEB 3 ML INHALATION ×2 (14:26→20:06)
--- NOTE | 2024-12-20 15:06 | PM.IMPN ---
Progress Note: A&P Assessment and Plan (1) Acute on chronic combined systolic and diastolic heart failure: Code(s): I50.43 - Acute on chronic combined systolic (congestive) and diastolic (congestive) heart failure Status: Acute (2) Hypertensive urgency: Code(s): I16.0 - Hypertensive urgency Status: Acute (3) Elevated troponin: Code(s): R77.8 - Other specified abnormalities of plasma proteins Status: Acute (4) Chest pain: Code(s): R07.9 - Chest pain, unspecified Status: Acute (5) ESRD (end stage renal disease) on dialysis: Code(s): N18.6 - End stage renal disease; Z99.2 - Dependence on renal dialysis Status: Acute (6) Chronic anemia: Code(s): D64.9 - Anemia, unspecified Status: Acute Plan Chest pain Elevated troponin x2 EKG shows sinus rhythm no specific ST T-wave changes Possible demand ischemia due to acute heart failure, also possible due to NSTEMI Continue aspirin 81 mg b.i.d. p.o., Imdur 30 mg daily p.o. nitroglycerin sublingual p.r.n. Pending echocardiogram media monitor consult geothermal operations engineer for evaluation treatment Cardiac catheterization today showed patent coronary artery Acute on chronic combined heart failure Patient shortness breath, x-ray shows pulmonary congestion Resulting from fluid overload due to missing dialysis Provide Lasix 100 mg IV push once, Consult well point pumping supervisor for dialysis Patient still fluid overloaded, plans hemodialysis today Hypertension urgency Continue hydralazine 100 mg t.i.d. p.o. Nifedipine 90 mg daily p.o. Labetalol IV p.r.n. 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 On ceftriaxone and add vancomycin, pending respiratory pathogen panel 12/14 blood culture no growth so far, patient is afebrile, changed to Augmentin p.o. 12/15 Patient with history of ESRD on HD, presented with c/o CP and shortness of breath upon arrival patient tropes were elevated patient was seen by the geothermal operations engineer and had cardiac cath which showed mild CAD, on 12/17 c/o abdominal pain and bloating, KUB showed intestine full of stool gave miralax and Dulcolax suppository and later patient did have a BM, patient still c/o of shortness of breath despite 3 sessions of HD, with ultra filtration, chest x-ray shows early signs of pneumonia, patient lungs has fair entry, will start patient on ceftriaxone and doxycycline, will CTA of chest, will monitor. today again patient stats he is short of breath, CTA of chest was negative for PE, patient just had dialysis, patient was seen by Dr. De La Paz recommended breathing treatmen, patient was given duo neb and now patient stats he is not felling well and has shortness of breath, will continue breathing treatment, will monitor today and will discharge patient tomorrow. May discharge patient tomorrow if not fluid overloaded Subjective Date/time seen: 12/20/24 15:06 Interval history: Patient with history of ESRD on HD, presented with c/o CP and shortness of breath upon arrival patient tropes were elevated patient was seen by the geothermal operations engineer and had cardiac cath which showed mild CAD, on 12/17 c/o abdominal pain and bloating, KUB showed intestine full of stool gave miralax and Dulcolax suppository and later patient did have a BM, patient still c/o of shortness of breath despite 3 sessions of HD, with ultra filtration, chest x-ray shows early signs of pneumonia, patient lungs has fair air entry, will start patient on ceftriaxone and doxycycline, will CTA of chest, will monitor. today again patient stats he is short of breath, CTA of chest was negative for PE, patient just had dialysis, patient was seen by Dr. De La Paz recommended breathing treatmen, patient was given duo neb and now patient stats he is not felling well and has shortness of breath, will continue breathing treatment, will monitor today and will discharge patient tomorrow. Review of Systems Review of Systems: RS negative except above Exam Narrative: Patient is comfortable, NAD HEENT: eyes are clear and none icteric LUNGS: Bilateral fair entry with rales and rhonchi HEART: RR S1S2 ABD: BS+, Soft and nontender Lower extremities: no edema SKIN: nonjaundiced Neuro: grossly intact. Objective Data Vital Signs Vital Signs: Vital Signs - 24 hr 12/19/24 15:30 12/19/24 20:00 12/19/24 20:05 Temperature 36.7 C 36.3 C L Pulse Rate 96 93 Respiratory Rate 16 16 Blood Pressure 120/74 138/67 Pulse Oximetry 97 98 Oxygen Delivery Room Air 12/20/24 04:05 12/20/24 08:00 12/20/24 11:07 Temperature 36.0 C L Pulse Rate 82 85 Respiratory Rate 20 20 Blood Pressure 132/89 Pulse Oximetry 99 96 Oxygen Delivery Room Air Room Air Intake/Output Intake/Output: Intake & Output 12/17/24 12/18/24 12/19/24 12/20/24 23:59 23:59 23:59 23:59 Intake Total 1170 1500 1270 966 Output Total 3000 2000 Balance -1830 1500 -730 966 Meds/Results Medications: Active Medications Generic Name Dose Route Start Last Admin Trade Name Freq PRN Reason Stop Dose Admin Acetaminophen 650 mg 12/10/24 08:43 12/12/24 21:33 Acetaminophen 325 Mg Tablet PO 650 mg Q4H PRN Administration Mild Pain (1-3) or Fever Albuterol/Ipratropium 3 ml 12/20/24 14:00 12/20/24 14:26 Ipratropium 0.5 Mg/Albuterol Sulfate 2.5 Mg Ampul.Neb 3 Ml INHALATION 3 ml Q6HRT TICO Administration Aspirin 81 mg 12/10/24 09:00 12/20/24 08:50 Aspirin 81 Mg Enteric Tablet PO 81 mg QAM TICO Administration Atorvastatin Calcium 40 mg 12/11/24 09:00 12/20/24 08:50 Atorvastatin 40 Mg Tablet PO 40 mg DAILY TICO Administration Bisacodyl 5 mg 12/10/24 08:43 12/17/24 14:22 Bisacodyl 5 Mg Tablet Ec PO 5 mg DAILY PRN Administration Constipation Bumetanide 2 mg 12/10/24 09:00 12/20/24 08:50 Bumetanide 1 Mg Tablet PO 2 mg DAILY TICO Administration Calcium Acetate 667 mg 12/14/24 08:00 12/20/24 12:46 Calcium Acetate 667 Mg Tablet PO 667 mg TIDWM TICO Administration Doxycycline Hyclate 100 mg 12/19/24 21:00 12/20/24 08:50 Doxycycline Hyclate 100 Mg Tablet PO 12/23/24 09:01 100 mg Q12HR TICO Administration Heparin Sodium (Porcine) 5,000 units 12/10/24 09:00 12/10/24 14:34 Heparin Sodium 5,000 Units/Ml Vial SUB-Q Not Given Q12HR TICO Hydralazine HCl 100 mg 12/10/24 09:00 12/20/24 12:47 Hydralazine Hcl 50 Mg Tablet PO 100 mg TID TICO Administration Albumin Human 50 mls @ 999 mls/hr 12/10/24 00:29 Albutein IVPB 01/09/25 00:28 Q10M PRN HYPOTENSION Isosorbide Mononitrate 60 mg 12/10/24 20:00 12/20/24 12:52 Isosorbide Mononitrate 30 Mg Tab.Er.24h PO 60 mg TID@0600,1300,2000 TICO Administration Nifedipine 90 mg 12/10/24 09:00 12/20/24 08:50 Nifedipine 30 Mg Tab.Er.24 PO 90 mg DAILY TICO Administration Nitroglycerin 0.4 mg 12/10/24 08:43 12/11/24 09:14 Nitroglycerin Sl 0.4 Mg Tablet SUBLINGUAL 0.4 mg Q5MIN PRN Administration Chest Pain Polyethylene Glycol 17 gm 12/17/24 12:54 12/18/24 09:15 Polyethylene Glycol 3350 17 Gm Powd.Pack PO 17 gm QAM PRN Administration Constipation Vitamin D 250 mcg 12/14/24 09:00 12/20/24 08:50 Cholecalciferol (Vitamin D3) 125 Mcg (5,000 Units) Tablet PO 250 mcg DAILY TICO Administration Radiology Results: ITS Impressions Chest/Abdomen/Pelvis CT 12/13/24 14:13 IMPRESSION: CHEST: 1. No acute cardiopulmonary pathology. 2. Trace of effusion seen in the lung bases. Pleural thickening cannot be excluded. ABDOMEN/PELVIS: 1. Polycystic kidneys. 2. Multiple cysts in the liver. 3. Constipation. Abdomen X-Ray 12/17/24 13:20 IMPRESSION: NO ACUTE ABDOMINAL FINDINGS. Constipation. Chest X-Ray 12/18/24 09:31 IMPRESSION: Prominent markings in the right lung base. Early pneumonia should be considered. Clinical evaluation and follow-up advised. Chest CTA 12/18/24 17:07 IMPRESSION: 1. . No pulmonary embolism. 2. No acute cardiopulmonary pathology. 3. Polycystic disease with cysts in the kidneys and the liver. 4. Sliding hiatus hernia. Labs Labs: Laboratory Results - last 24 hr 12/20/24 05:53 Sodium 137 Potassium 4.8 Chloride 103 Carbon Dioxide 24 Anion Gap 10 BUN 33 H Creatinine 8.74 H Estim Creat Clear Calc 9 Estimated GFR 6 L Glucose 87 Calcium 8.8 Phosphorus 4.3 Albumin 3.7
[2024-12-20 15:11] VITALS: BP 140/86; PULSE 98; RESP 20; TEMP 36.3; O2SAT 98
[2024-12-20 19:40] VITALS: BP 130/81; PULSE 98; RESP 18; TEMP 36.2; O2SAT 100
[2024-12-20 20:07] VITALS: PULSE 102; RESP 18; O2SAT 97
[2024-12-20 20:09] VITALS: PULSE 104; RESP 20
[2024-12-21] VITALS (9 sets, daily range): BP systolic 124–144; BP diastolic 74–92; PULSE 85–99; RESP 18–20; TEMP 36.5–36.6; O2SAT 98–100
--- NOTE | 2024-12-21 02:15 | PCRCNOTE ---
pt stopped breathing tx and stated that it makes it harder to breathe
[2024-12-21] MEDS: ISOSORBIDE MONONITRATE 30 MG TAB.ER.24H 60 MG PO ×2 (05:14→12:11)
[2024-12-21] MEDS: IPRATROPIUM 0.5 MG/ALBUTEROL SULFATE 2.5 MG AMPUL.NEB 3 ML INHALATION ×3 (07:16→19:52)
[2024-12-21] MEDS: DOXYCYCLINE HYCLATE 100 MG TABLET PO ×2 (08:31→20:27)
[2024-12-21] MEDS: CHOLECALCIFEROL (VITAMIN D3) 125 MCG (5,000 UNITS) TABLET 250 MCG PO (08:31)
[2024-12-21] MEDS: ASPIRIN 81 MG ENTERIC TABLET PO (08:32)
[2024-12-21] MEDS: ATORVASTATIN 40 MG TABLET PO (08:32)
[2024-12-21] MEDS: BUMETANIDE 1 MG TABLET 2 MG PO (08:32)
[2024-12-21] MEDS: CALCIUM ACETATE 667 MG TABLET PO ×3 (08:32→17:27)
[2024-12-21 08:57] LABS: Hematocrit 26.5 % (42.0-52.0); Hemoglobin 8.3 g/dL (14.0-18.0); Mean Corpuscular HGB Conc 31.3 g/dl (32-36); Mean Corpuscular Hemoglobin 29.2 pg (26-34); Mean Corpuscular Volume 93.3 fl (80-100); Platelet Count Result 196 k/mm3 (150-375); Red Blood Count 2.84 M/mm3 (4.6-6.20); White Blood Count 3.7 K/mm3 (4.5-10.0)
[2024-12-21 09:23] LABS: Magnesium 2.0 mg/dL (1.6-2.3)
[2024-12-21 09:24] LABS: Alanine Aminotransferase 15 U/L (6-50); Albumin Level 3.8 g/dL (3.5-5.1); Alkaline Phosphatase 57 U/L (38-126); Anion Gap 14 mmol/L (4-12); Aspartate Amino Transferase 25 U/L (17-59); Bilirubin,Total 0.3 mg/dL (0.2-1.3); Blood Urea Nitrogen 55 mg/dL (9-20); Calcium 9.1 mg/dL (8.4-10.2); Carbon Dioxide 21 mmol/L (22-30); Chloride 101 mmol/L (98-107); Estimated CRCL calculation 7 ml/min; Estimated Glomerular Filt Rate 5; Glucose 141 mg/dL (65-110); Potassium 4.6 mmol/L (3.4-5.0); Sodium 136 mmol/L (137-145); Total Protein 6.9 g/dL (6.3-8.2)
--- NOTE | 2024-12-21 15:34 | P.PNNP_ITS ---
Progress Note: A&P Assessment and Plan (1) End stage renal disease: Code(s): N18.6 - End stage renal disease Status: Chronic Assessment and Plan: * HD went well Sunday * will write for more HD in case he is still there. * volume status doing well after removing 8L over 3 days. * interestingly his admissoin cxr showed no pulmonary edema * potassium okay * outpatient dialysis unit = [facility] (2) Chest pain: Code(s): R07.9 - Chest pain, unspecified Status: Acute Assessment and Plan: * clinically better/resolved (3) SOB (shortness of breath): Code(s): R06.02 - Shortness of breath Status: Acute Assessment and Plan: * The patient says he short of breath again. * No signs of volume overload. * he does have some rhonchi and his symptoms almost sound like some reversible airways disease. * I talked with Dr. Mortensen * he will prescribe inhalers. * off oxygen (4) Fever: Code(s): R50.9 - Fever, unspecified Status: Acute Assessment and Plan: * resolved * elevated WBC normalized * cultures negative today * viral studies results negative as well * CT of C/A/P unrevealing * continue supportive therapy * on Ceftriaxone and doxycycline (5) Hypertension: Code(s): I10 - Essential (primary) hypertension Status: Chronic Assessment and Plan: * systolic under good control in the 120s to 140 (6) Anemia: Code(s): D64.9 - Anemia, unspecified Status: Chronic Assessment and Plan: * due to ESRD * Epogen with HD * hemoglobin 8.4. (7) Polycystic kidney disease: Code(s): Q61.3 - Polycystic kidney, unspecified Status: Chronic Assessment and Plan: * known diagnosis * etiology of ESRD Subjective Date/time seen: 12/21/24 15:34 Interval history: alert. feels better. for the first couple of times, inhalers led to an acid feeling but last night he was able to tolerate the whole treatment and he feels much better. Exam Narrative: General: WD/WN male in NAD Heart: normal S1 and S2; no rub or gallop Lungs: decreased at bases , good inspiration and expiration without rhonchi Abdomen: soft, nontender, nondistended, positive bowel sounds Extremities: no cyanosis or clubbing; no edema Skin: no rash Objective Data Vital Signs Vital Signs: Vital Signs - 24 hr 12/20/24 19:40 12/20/24 20:00 12/20/24 20:07 Temperature 97.2 F L Pulse Rate 98 Respiratory Rate 18 Blood Pressure 130/81 Pulse Oximetry 100 97 Oxygen Delivery Room Air Room Air 12/20/24 20:07 12/20/24 20:09 12/21/24 05:00 Temperature 97.9 F Pulse Rate 102 H 104 H 85 Respiratory Rate 18 20 18 Blood Pressure 144/92 H Pulse Oximetry 100 Oxygen Delivery 12/21/24 07:16 12/21/24 07:22 12/21/24 08:30 Temperature Pulse Rate 96 98 Respiratory Rate 20 20 Blood Pressure Pulse Oximetry Oxygen Delivery Room Air 12/21/24 13:01 12/21/24 13:08 Temperature Pulse Rate 94 98 Respiratory Rate 20 20 Blood Pressure Pulse Oximetry Oxygen Delivery Intake/Output Intake/Output: Intake & Output 12/18/24 12/19/24 12/20/24 12/21/24 23:59 23:59 23:59 23:59 Intake Total 1500 1270 1066 910 Output Total 1999 150 325 Balance 1500 -730 916 585 Meds/Results Medications: Active Medications Generic Name Dose Route Start Last Admin Trade Name Ahsan PRN Reason Stop Dose Admin Acetaminophen 650 mg 12/10/24 08:43 12/12/24 21:33 Acetaminophen 325 Mg Tablet PO 650 mg Q4H PRN Administration Mild Pain (1-3) or Fever Albuterol/Ipratropium 3 ml 12/20/24 14:00 12/21/24 13:01 Ipratropium 0.5 Mg/Albuterol Sulfate 2.5 Mg Ampul.Neb 3 Ml INHALATION 3 ml Q6HRT TICO Administration Aspirin 81 mg 12/10/24 09:00 12/21/24 08:32 Aspirin 81 Mg Enteric Tablet PO 81 mg QAM TICO Administration Atorvastatin Calcium 40 mg 12/11/24 09:00 12/21/24 08:32 Atorvastatin 40 Mg Tablet PO 40 mg DAILY TICO Administration Bisacodyl 5 mg 12/10/24 08:43 12/17/24 14:22 Bisacodyl 5 Mg Tablet Ec PO 5 mg DAILY PRN Administration Constipation Bumetanide 2 mg 12/10/24 09:00 12/21/24 08:32 Bumetanide 1 Mg Tablet PO 2 mg DAILY TICO Administration Calcium Acetate 667 mg 12/14/24 08:00 12/21/24 12:11 Calcium Acetate 667 Mg Tablet PO 667 mg TIDWM TICO Administration Doxycycline Hyclate 100 mg 12/19/24 21:00 12/21/24 08:31 Doxycycline Hyclate 100 Mg Tablet PO 12/23/24 09:01 100 mg Q12HR TICO Administration Heparin Sodium (Porcine) 5,000 units 12/10/24 09:00 12/10/24 14:34 Heparin Sodium 5,000 Units/Ml Vial SUB-Q Not Given Q12HR [facility] Hydralazine HCl 100 mg 12/10/24 09:00 12/21/24 12:11 Hydralazine Hcl 50 Mg Tablet PO 100 mg TID TICO Administration Albumin Human 50 mls @ 999 mls/hr 12/10/24 00:29 Albutein IVPB 01/09/25 00:28 Q10M PRN HYPOTENSION Isosorbide Mononitrate 60 mg 12/10/24 20:00 12/21/24 12:11 Isosorbide Mononitrate 30 Mg Tab.Er.24h PO 60 mg TID@0600,1300,2000 [facility] Administration Nifedipine 90 mg 12/10/24 09:00 12/21/24 08:32 Nifedipine 30 Mg Tab.Er.24 PO 90 mg DAILY TICO Administration Nitroglycerin 0.4 mg 12/10/24 08:43 12/11/24 09:14 Nitroglycerin Sl 0.4 Mg Tablet SUBLINGUAL 0.4 mg Q5MIN PRN Administration Chest Pain Polyethylene Glycol 17 gm 12/17/24 12:54 12/18/24 09:15 Polyethylene Glycol 3350 17 Gm Powd.Pack PO 17 gm QAM PRN Administration Constipation Vitamin D 250 mcg 12/14/24 09:00 12/21/24 08:31 Cholecalciferol (Vitamin D3) 125 Mcg (5,000 Units) Tablet PO 250 mcg DAILY TICO Administration Radiology Results: ITS Impressions Chest/Abdomen/Pelvis CT 12/13/24 14:13 IMPRESSION: CHEST: 1. No acute cardiopulmonary pathology. 2. Trace of effusion seen in the lung bases. Pleural thickening cannot be excluded. ABDOMEN/PELVIS: 1. Polycystic kidneys. 2. Multiple cysts in the liver. 3. Constipation. Abdomen X-Ray 12/17/24 13:20 IMPRESSION: NO ACUTE ABDOMINAL FINDINGS. Constipation. Chest X-Ray 12/18/24 09:31 IMPRESSION: Prominent markings in the right lung base. Early pneumonia should be considered. Clinical evaluation and follow-up advised. Chest CTA 12/18/24 17:07 IMPRESSION: 1. . No pulmonary embolism. 2. No acute cardiopulmonary pathology. 3. Polycystic disease with cysts in the kidneys and the liver. 4. Sliding hiatus hernia. Labs Labs: Laboratory Results - last 24 hr 12/21/24 08:45 WBC 3.7 L RBC 2.84 L Hgb 8.3 L Hct 26.5 L MCV 93.3 MCH 29.2 MCHC 31.3 L RDW 17.6 H Plt Count 196 MPV 8.6 Sodium 136 L Potassium 4.6 Chloride 101 Carbon Dioxide 21 L Anion Gap 14 H BUN 55 H D Creatinine 11.07 H Estim Creat Clear Calc 7 Estimated GFR 5 L Glucose 141 H Calcium 9.1 Magnesium 2.0 Total Bilirubin 0.3 AST 25 ALT 15 Alkaline Phosphatase 57 Total Protein 6.9 Albumin 3.8
--- NOTE | 2024-12-21 16:59 | PM.IMPN ---
Progress Note: A&P Assessment and Plan (1) Acute on chronic combined systolic and diastolic heart failure: Code(s): I50.43 - Acute on chronic combined systolic (congestive) and diastolic (congestive) heart failure Status: Acute (2) Hypertensive urgency: Code(s): I16.0 - Hypertensive urgency Status: Acute (3) Elevated troponin: Code(s): R77.8 - Other specified abnormalities of plasma proteins Status: Acute (4) Chest pain: Code(s): R07.9 - Chest pain, unspecified Status: Acute (5) ESRD (end stage renal disease) on dialysis: Code(s): N18.6 - End stage renal disease; Z99.2 - Dependence on renal dialysis Status: Acute (6) Chronic anemia: Code(s): D64.9 - Anemia, unspecified Status: Acute Plan Chest pain Elevated troponin x2 EKG shows sinus rhythm no specific ST T-wave changes Possible demand ischemia due to acute heart failure, also possible due to NSTEMI Continue aspirin 81 mg b.i.d. p.o., Imdur 30 mg daily p.o. nitroglycerin sublingual p.r.n. 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 p.o. Nifedipine 90 mg daily p.o. Labetalol IV p.r.n. 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 On ceftriaxone and add vancomycin, pending respiratory pathogen panel 12/14 blood culture no growth so far, patient is afebrile, changed to Augmentin p.o. 12/15 Patient with history of ESRD on HD, presented with c/o CP and shortness of breath upon arrival patient tropes were elevated patient was seen by the rotary slicing machine operator and had cardiac cath which showed mild CAD, on 12/17 c/o abdominal pain and bloating, KUB showed intestine full of stool gave miralax and Dulcolax suppository and later patient did have a BM, patient still c/o of shortness of breath despite 3 sessions of HD, with ultra filtration, chest x-ray shows early signs of pneumonia, patient lungs has fair entry, will start patient on ceftriaxone and doxycycline, will CTA of chest, will monitor. patient received several DUO nebs and again patient stats he is short of breath, CTA of chest was negative for PE, patient had dialysis, patient was seen by Dr. De La Paz recommended breathing treatment, patient was given duo neb and now patient stats he is not felling well and has shortness of breath, will continue breathing treatment, will monitor today and will consult clam digger for further recommendations, will monitor. May discharge patient tomorrow if not fluid overloaded Subjective Date/time seen: 12/21/24 16:59 Interval history: Patient with history of ESRD on HD, presented with c/o CP and shortness of breath upon arrival patient tropes were elevated patient was seen by the rotary slicing machine operator and had cardiac cath which showed mild CAD, on 12/17 c/o abdominal pain and bloating, KUB showed intestine full of stool gave miralax and Dulcolax suppository and later patient did have a BM, patient still c/o of shortness of breath despite 3 sessions of HD, with ultra filtration, chest x-ray shows early signs of pneumonia, patient lungs has fair air entry, will start patient on ceftriaxone and doxycycline, will CTA of chest, will monitor. patient received several DUO nebs and again patient stats he is short of breath, CTA of chest was negative for PE, patient had dialysis, patient was seen by Dr. De La Paz recommended breathing treatment, patient was given duo neb and now patient stats he is not felling well and has shortness of breath, will continue breathing treatment, will monitor today and will consult clam digger for further recommendations, will monitor. Review of Systems Review of Systems: RS negative except above Exam Narrative: Patient is comfortable, NAD HEENT: eyes are clear and none icteric LUNGS: Bilateral fair entry with rales and rhonchi HEART: RR S1S2 ABD: BS+, Soft and nontender Lower extremities: no edema SKIN: nonjaundiced Neuro: grossly intact. Objective Data Vital Signs Vital Signs: Vital Signs - 24 hr 12/20/24 19:40 12/20/24 20:00 12/20/24 20:07 Temperature 36.2 C L Pulse Rate 98 Respiratory Rate 18 Blood Pressure 130/81 Pulse Oximetry 100 97 Oxygen Delivery Room Air Room Air 12/20/24 20:07 12/20/24 20:09 12/21/24 05:00 Temperature 36.6 C Pulse Rate 102 H 104 H 85 Respiratory Rate 18 20 18 Blood Pressure 144/92 H Pulse Oximetry 100 Oxygen Delivery 12/21/24 07:16 12/21/24 07:22 12/21/24 08:30 Temperature Pulse Rate 96 98 Respiratory Rate 20 20 Blood Pressure Pulse Oximetry Oxygen Delivery Room Air 12/21/24 13:01 12/21/24 13:08 Temperature Pulse Rate 94 98 Respiratory Rate 20 20 Blood Pressure Pulse Oximetry Oxygen Delivery Intake/Output Intake/Output: Intake & Output 12/18/24 12/19/24 12/20/24 12/21/24 23:59 23:59 23:59 23:59 Intake Total 1500 1270 1066 910 Output Total 2000 150 325 Balance 1500 -730 916 585 Meds/Results Medications: Active Medications Generic Name Dose Route Start Last Admin Trade Name Freq PRN Reason Stop Dose Admin Acetaminophen 650 mg 12/10/24 08:43 12/12/24 21:33 Acetaminophen 325 Mg Tablet PO 650 mg Q4H PRN Administration Mild Pain (1-3) or Fever Albuterol/Ipratropium 3 ml 12/20/24 14:00 12/21/24 13:01 Ipratropium 0.5 Mg/Albuterol Sulfate 2.5 Mg Ampul.Neb 3 Ml INHALATION 3 ml Q6HRT TICO Administration Aspirin 81 mg 12/10/24 09:00 12/21/24 08:32 Aspirin 81 Mg Enteric Tablet PO 81 mg QAM TICO Administration Atorvastatin Calcium 40 mg 12/11/24 09:00 12/21/24 08:32 Atorvastatin 40 Mg Tablet PO 40 mg DAILY TICO Administration Bisacodyl 5 mg 12/10/24 08:43 12/17/24 14:22 Bisacodyl 5 Mg Tablet Ec PO 5 mg DAILY PRN Administration Constipation Bumetanide 2 mg 12/10/24 09:00 12/21/24 08:32 Bumetanide 1 Mg Tablet PO 2 mg DAILY TICO Administration Calcium Acetate 667 mg 12/14/24 08:00 12/21/24 12:11 Calcium Acetate 667 Mg Tablet PO 667 mg TIDWM TICO Administration Doxycycline Hyclate 100 mg 12/19/24 21:00 12/21/24 08:31 Doxycycline Hyclate 100 Mg Tablet PO 12/23/24 09:01 100 mg Q12HR TICO Administration Epoetin Iggy-epbx 10,000 units 12/22/24 06:00 Epoetin Iggy-Epbx 10,000 Units/Ml Vial IV PUSH 12/22/24 06:01 ONCE ONE Heparin Sodium (Porcine) 5,000 units 12/10/24 09:00 12/10/24 14:34 Heparin Sodium 5,000 Units/Ml Vial SUB-Q Not Given Q12HR TICO Hydralazine HCl 100 mg 12/10/24 09:00 12/21/24 12:11 Hydralazine Hcl 50 Mg Tablet PO 100 mg TID TICO Administration Albumin Human 50 mls @ 999 mls/hr 12/10/24 00:29 Albutein IVPB 01/09/25 00:28 Q10M PRN HYPOTENSION Albumin Human 50 mls @ 999 mls/hr 12/22/24 06:00 Albutein IVPB 12/22/24 06:01 Q10M PRN HYPOTENSION Sodium Chloride 1,000 mls @ 999 mls/hr 12/22/24 06:00 Normal Saline Iv IV CONT 12/22/24 07:00 .Q1H1M ONE Sodium Chloride 1,000 mls @ 0 mls/hr 12/22/24 06:00 Normal Saline Iv IV CONT 12/22/24 06:01 .Q0M ONE Per Protocol Isosorbide Mononitrate 60 mg 12/10/24 20:00 12/21/24 12:11 Isosorbide Mononitrate 30 Mg Tab.Er.24h PO 60 mg TID@0600,1300,2000 TICO Administration Nifedipine 90 mg 12/10/24 09:00 12/21/24 08:32 Nifedipine 30 Mg Tab.Er.24 PO 90 mg DAILY TICO Administration Nitroglycerin 0.4 mg 12/10/24 08:43 12/11/24 09:14 Nitroglycerin Sl 0.4 Mg Tablet SUBLINGUAL 0.4 mg Q5MIN PRN Administration Chest Pain Polyethylene Glycol 17 gm 12/17/24 12:54 12/18/24 09:15 Polyethylene Glycol 3350 17 Gm Powd.Pack PO 17 gm QAM PRN Administration Constipation Vitamin D 250 mcg 12/14/24 09:00 12/21/24 08:31 Cholecalciferol (Vitamin D3) 125 Mcg (5,000 Units) Tablet PO 250 mcg DAILY TICO Administration Radiology Results: ITS Impressions Chest/Abdomen/Pelvis CT 12/13/24 14:13 IMPRESSION: CHEST: 1. No acute cardiopulmonary pathology. 2. Trace of effusion seen in the lung bases. Pleural thickening cannot be excluded. ABDOMEN/PELVIS: 1. Polycystic kidneys. 2. Multiple cysts in the liver. 3. Constipation. Abdomen X-Ray 12/17/24 13:20 IMPRESSION: NO ACUTE ABDOMINAL FINDINGS. Constipation. Chest X-Ray 12/18/24 09:31 IMPRESSION: Prominent markings in the right lung base. Early pneumonia should be considered. Clinical evaluation and follow-up advised. Chest CTA 12/18/24 17:07 IMPRESSION: 1. . No pulmonary embolism. 2. No acute cardiopulmonary pathology. 3. Polycystic disease with cysts in the kidneys and the liver. 4. Sliding hiatus hernia. Labs Labs: Laboratory Results - last 24 hr 12/21/24 08:45 WBC 3.7 L RBC 2.84 L Hgb 8.3 L Hct 26.5 L MCV 93.3 MCH 29.2 MCHC 31.3 L RDW 17.6 H Plt Count 196 MPV 8.6 Sodium 136 L Potassium 4.6 Chloride 101 Carbon Dioxide 21 L Anion Gap 14 H BUN 55 H D Creatinine 11.07 H Estim Creat Clear Calc 7 Estimated GFR 5 L Glucose 141 H Calcium 9.1 Magnesium 2.0 Total Bilirubin 0.3 AST 25 ALT 15 Alkaline Phosphatase 57 Total Protein 6.9 Albumin 3.8
--- NOTE | 2024-12-21 18:11 | P.CONPL_ITS ---
Assessment and Plan Assessment and plan (1) SOB (shortness of breath): Code(s): R06.02 - Shortness of breath Status: Acute Assessment and Plan: His recent shortness of breath has responded well to 2 nebulized albuterol treatments. He has a cough with a small amount of sputum expectorated. He has no prior history of bronchospasm, no history of recurrent pneumonias. His shortness of breath has also been alleviated at nighttime by raising the head of the bed. 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 The shortness of breath is new. He started dialysis 2 years ago.This is consistent with atelectasis. Plan plan: 1) Pulmonary hygiene, Cornet PAP valve, agree with bronchodilator with albuterol and ipratropium, doxycycline, to clear the atelectasis which clinically he has in the left base. He knows that he can take Cornet valve home to use for maintaining airway hygiene. 2) Outpatient pulmonary function testing. He agrees to follow up in our office. 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 He is on room air and says he feels significantly better after starting nebulized treatments. History of Present Illness History of Present Illness Consult date: 12/22/24 Requesting physician: Ravi Mortensen MD Chief complaint: shorntess of breath Narrative: Pt was seen December 21 at 18:[address] Mortensen consulted me to see this patient for shortness of breath. NEW: Piter Donahue is a 59-year-old man with end-stage renal disease who had a dialysis treatment on SundayDecember 20. He is euvolemic according to his manager integrated. Dr De La Paz states that there is no sign of volume overload. He has been weaned off O2. CTA on 12/18/24 showed No pulmonary embolism. No acute cardiopulmonary pathology. Polycystic disease with cysts in the kidneys and the liver. Sliding hiatus hernia. He tells me that he has had episodes of shortness of breath this admission, and had relief with his second albuterol treatment. He has no hx of asthma or recurrent pneumonia, and he has been listed for a kidney transplant through [facility]; had extensive preop workup including an ischemia workup, and saw an ENT -director of residence life who evaluated him, and performed a parathyroid procedure in 2023. 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 He is also a [employer]. He is a never smoker. He was raised in a home where his mother smoked very lightly. He has a daughter who had a mild breathing problems in childhood, and she has no breathing problems as an adult. He has no seasonal allergies, he has no pets in his home at the present. This is been a long hospitalization, he was admitted on December 09. His stay was complicated by chest pain, had a negative cardiac catheterization.He is on doxycycline and nebulized albuterol and ipratropium which really are helping significantly. DATA * 05/17/2022; negative [place] profile * 05/22/2022; Lexiscan; No definite ischemia or infarct. Increased activity below the diaphragm decreases sensitivity and specificity in the inferior wall. 2. Normal left ventricular ejection fraction measuring 51%. * sodium 136, potassium 4.6, chloride 101, carbon dioxide 21, BUN 55, creatinine 11.07. Glucose 141. [place] profile was negative on 05/17/2022. Review of Systems 2 Review of Systems: All systems reviewed & are unremarkable except as noted in HPI and below PMFSH Past Medical History Medical History Cardiomyopathy Acute systolic heart failure Acute diastolic CHF (congestive heart failure) Anemia of chronic disease Flash pulmonary edema Adult polycystic kidney disease Surgical History Surgical History No significant past surgical history Family History Family History (Updated 12/10/24 @ 03:22 by Irving Fleming RN) Sibling Heart disease Fraternal twin brother had CABG X4. History of quadruple bypass Sibling Cancer Sibling ESRD on dialysis Mother Old age of old age Cerebrovascular accident Father Heart disease around 60 y.o. of uncertain type of heart disease Social History Social History Social History: Negative for alcohol cigarettes or tobacco. 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 His brother Gavino donahue is the poa. He has One child who is an adult daughter. He is . Code status full code Smoking status: Never smoker Second hand tobacco smoke exposure: No Alcohol intake: never Substance use: never Substance use type: does not use Do You Feel Safe in your Home?: Yes Lack of Transportation: YES Lack of Food: Never True Current Housing: I Have Housing Concerned About Future Housing: No Difficulty Paying Gas/Electric Bills: No Difficulty Paying for Meds: No Currently Unemployed: No Education: Master's Degree or Higher Difficulty w/ Childcare or Family Care: No Spiritual care concerns: No Meds Home Medications and Allergies Home Medications ?Medication ?Instructions ?Recorded ?Confirmed ?Type aspirin 81 mg tablet,delayed 81 mg PO QAM #30 tabs 05/27/22 12/10/24 Rx release bumetanide 2 mg tablet 2 mg PO DAILY #60 tabs 05/27/22 12/10/24 Rx calcium acetate(phosphat bind) 667 667 mg PO TID #90 tabs 05/27/22 12/10/24 Rx mg tablet hydralazine 100 mg tablet 100 mg PO TID #270 tabs 03/12/24 12/10/24 Rx amino acids-protein hydrolysate 16 30 ml PO DAILY 12/10/24 12/10/24 History gram-100 kcal/30 mL oral liquid (Liquacel) cholecalciferol (vitamin D3) 250 250 mcg PO DAILY 12/10/24 12/10/24 History mcg (10,000 unit) capsule isosorbide mononitrate 30 mg 30 mg PO TID 12/10/24 12/10/24 History tablet,extended release 24 hr nifedipine 90 mg tablet,extended 90 mg PO DAILY 12/10/24 12/10/24 History release 24 hr omega 7-nox-wwr-fish oil 900 1 cap PO DAILY 12/10/24 12/10/24 History mg-1,400 mg capsule,delayed release Allergies Allergy/AdvReac Type Severity Reaction Status Date / Time No Known Allergies Allergy Verified 12/10/24 01:52 Vital Signs Vital Signs - 24 hr 12/20/24 19:40 12/20/24 20:00 12/20/24 20:07 Temperature 36.2 C L Pulse Rate 98 Respiratory Rate 18 Blood Pressure 130/81 Pulse Oximetry 100 97 Oxygen Delivery Room Air Room Air 12/20/24 20:07 12/20/24 20:09 12/21/24 05:00 Temperature 36.6 C Pulse Rate 102 H 104 H 85 Respiratory Rate 18 20 18 Blood Pressure 144/92 H Pulse Oximetry 100 Oxygen Delivery 12/21/24 07:16 12/21/24 07:22 12/21/24 08:30 Temperature Pulse Rate 96 98 Respiratory Rate 20 20 Blood Pressure Pulse Oximetry Oxygen Delivery Room Air 12/21/24 13:01 12/21/24 13:08 Temperature Pulse Rate 94 98 Respiratory Rate 20 20 Blood Pressure Pulse Oximetry Oxygen Delivery Exam 2 Narrative: GEN: Alert, oriented, not in distress. HEENT: pupils are equal, EOMI, symmetrical face; oral membranes moist, Mallampati III airway NECK: Trachea is midline CHEST: Equal air entry, symmetric excursion, moist crackles in the right base suggestive of atelectasis with secretions CV: Regular S1S2 no m/g/r ABD : (+) bowel sounds Extremities : no clubbing, cyanosis, or edema; no calf tenderness PSYCH: normal thought and speech, gait is not tested Results Laboratory Findings 12/22/24 06:04 12/22/24 06:04 ABG, PT/INR, D-dimer: PT/INR, D-dimer PT 14.1 Seconds (11.1-14.7) 12/12/24 07:17 INR 1.1 12/12/24 07:17 Abnormal lab findings: Abnormal Labs 12/09/24 12/09/24 12/10/24 20:50 23:40 02:48 WBC 4.3 L RBC 3.41 L 3.08 L Hgb 9.8 L 8.9 L Hct 29.7 L 27.2 L MCHC RDW 14.6 H 14.7 H Plt Count 134 L MPV Immature Gran % (Auto) Lymph % (Auto) [place] % (Auto) 8.7 H 10.5 H Eos % (Auto) Lymph # (Auto) [place] # (Auto) APTT Sodium Potassium 5.4 H 5.4 H Chloride Carbon Dioxide 19 L 21 L Anion Gap 14 H BUN 79 H 78 H Creatinine 14.29 H 14.69 H Estimated GFR 4 L 3 L Glucose 122 H Calcium 10.4 H Phosphorus Troponin I 0.042 H* 0.046 H* 0.048 H* Total Protein 8.3 H Albumin Urine pH Urine Protein Urine Glucose (UA) Ur Blood (Man) Urine RBC 12/10/24 12/10/24 12/10/24 09:03 12:19 19:48 WBC 3.2 L RBC 2.80 L Hgb 8.1 L Hct 24.6 L MCHC RDW Plt Count 125 L MPV Immature Gran % (Auto) Lymph % (Auto) [place] % (Auto) 15.2 H Eos % (Auto) Lymph # (Auto) [place] # (Auto) APTT Sodium Potassium Chloride Carbon Dioxide Anion Gap BUN Creatinine Estimated GFR Glucose Calcium Phosphorus Troponin I 0.043 H* 0.036 H* Total Protein Albumin Urine pH Urine Protein Urine Glucose (UA) Ur Blood (Man) Urine RBC 12/11/24 12/11/24 12/11/24 02:59 09:52 16:31 WBC 3.4 L RBC 2.63 L Hgb 7.6 L Hct 23.4 L MCHC RDW 14.6 H Plt Count 111 L MPV Immature Gran % (Auto) Lymph % (Auto) [place] % (Auto) 13.0 H Eos % (Auto) 5.6 H Lymph # (Auto) [place] # (Auto) APTT 64.1 H 151.2 H 54.0 H Sodium Potassium Chloride Carbon Dioxide Anion Gap BUN Creatinine Estimated GFR Glucose Calcium Phosphorus Troponin I Total Protein Albumin Urine pH Urine Protein Urine Glucose (UA) Ur Blood (Man) Urine RBC 12/12/24 12/12/24 12/13/24 07:17 20:26 07:35 WBC 4.1 L RBC 2.65 L 2.63 L Hgb 7.6 L 7.7 L Hct 23.7 L 24.3 L MCHC 31.7 L RDW 14.6 H 14.7 H Plt Count 113 L 121 L MPV Immature Gran % (Auto) 0.7 H Lymph % (Auto) [place] % (Auto) 12.7 H 15.9 H Eos % (Auto) 6.3 H Lymph # (Auto) [place] # (Auto) 0.7 H APTT Sodium Potassium 5.3 H 5.1 H Chloride Carbon Dioxide Anion Gap BUN 64 H D 43 H D Creatinine 12.04 H 8.76 H Estimated GFR 4 L 6 L Glucose Calcium 8.3 L 8.3 L Phosphorus Troponin I Total Protein Albumin 3.3 L 3.3 L Urine pH >=9.0 H Urine Protein 2+ H Urine Glucose (UA) Trace H Ur Blood (Man) 2+ H Urine RBC 11-20 H 12/14/24 12/15/24 12/16/24 05:33 05:39 09:35 WBC RBC 2.61 L 2.66 L 2.85 L Hgb 7.6 L 7.7 L 8.2 L Hct 24.2 L 24.3 L 25.9 L MCHC 31.4 L 31.7 L 31.7 L RDW 14.8 H 15.0 H 15.3 H Plt Count MPV 10.6 H Immature Gran % (Auto) 0.7 H Lymph % (Auto) 18.[address] [place] % (Auto) 13.6 H 12.5 H 11.4 H Eos % (Auto) 6.1 H 5.6 H Lymph # (Auto) 0.[address] [place] # (Auto) APTT Sodium Potassium Chloride 108 H Carbon Dioxide 19 L Anion Gap BUN 54 H D 65 H D 41 H D Creatinine 10.43 H 12.11 H 8.95 H Estimated GFR 5 L 4 L 6 L Glucose 113 H 159 H Calcium 8.2 L 8.1 L Phosphorus 4.8 H Troponin I Total Protein Albumin 3.4 L 3.4 L Urine pH Urine Protein Urine Glucose (UA) Ur Blood (Man) Urine RBC 12/17/24 12/19/24 12/20/24 09:00 06:03 05:53 WBC 4.2 L 4.1 L RBC 2.84 L 2.87 L Hgb 8.3 L 8.4 L Hct 26.1 L 26.4 L MCHC 31.8 L 31.8 L RDW 15.8 H 16.4 H Plt Count MPV Immature Gran % (Auto) Lymph % (Auto) [place] % (Auto) 13.9 H 12.8 H Eos % (Auto) 4.5 H Lymph # (Auto) [place] # (Auto) APTT Sodium 136 L Potassium Chloride Carbon Dioxide Anion Gap 13 H BUN 56 H D 42 H D 33 H Creatinine 11.22 H 10.56 H 8.74 H Estimated GFR 5 L 5 L 6 L Glucose 122 H Calcium Phosphorus 4.6 H Troponin I Total Protein Albumin Urine pH Urine Protein Urine Glucose (UA) Ur Blood (Man) Urine RBC 12/21/24 08:45 WBC 3.7 L RBC 2.84 L Hgb 8.3 L Hct 26.5 L MCHC 31.3 L RDW 17.6 H Plt Count MPV Immature Gran % (Auto) Lymph % (Auto) [place] % (Auto) Eos % (Auto) Lymph # (Auto) [place] # (Auto) APTT Sodium 136 L Potassium Chloride Carbon Dioxide 21 L Anion Gap 14 H BUN 55 H D Creatinine 11.07 H Estimated GFR 5 L Glucose 141 H Calcium Phosphorus Troponin I Total Protein Albumin Urine pH Urine Protein Urine Glucose (UA) Ur Blood (Man) Urine RBC
[2024-12-22] VITALS (26 sets, daily range): BP systolic 115–190; BP diastolic 81–100; PULSE 89–107; RESP 16–20; TEMP 36.1–37.1; O2SAT 96–100
[2024-12-22] MEDS: ISOSORBIDE MONONITRATE 30 MG TAB.ER.24H 60 MG PO ×3 (01:14→12:51)
[2024-12-22] MEDS: IPRATROPIUM 0.5 MG/ALBUTEROL SULFATE 2.5 MG AMPUL.NEB 3 ML INHALATION ×2 (01:36→14:02)
[2024-12-22 06:30] LABS: Hematocrit 25.3 % (42.0-52.0); Hemoglobin 7.9 g/dL (14.0-18.0); Mean Corpuscular HGB Conc 31.2 g/dl (32-36); Mean Corpuscular Hemoglobin 29.3 pg (26-34); Mean Corpuscular Volume 93.7 fl (80-100); Platelet Count Result 193 k/mm3 (150-375); Red Blood Count 2.70 M/mm3 (4.6-6.20); White Blood Count 3.7 K/mm3 (4.5-10.0)
[2024-12-22 06:52] LABS: Albumin Level 3.7 g/dL (3.5-5.1); Anion Gap 13 mmol/L (4-12); Blood Urea Nitrogen 76 mg/dL (9-20); Calcium 8.8 mg/dL (8.4-10.2); Carbon Dioxide 19 mmol/L (22-30); Chloride 100 mmol/L (98-107); Estimated CRCL calculation 6 ml/min; Estimated Glomerular Filt Rate 4; Glucose 84 mg/dL (65-110); Magnesium 2.1 mg/dL (1.6-2.3); Potassium 4.8 mmol/L (3.4-5.0); Sodium 132 mmol/L (137-145)
[2024-12-22] MEDS: CALCIUM ACETATE 667 MG TABLET PO ×2 (09:04→12:49)
[2024-12-22] MEDS: BUMETANIDE 1 MG TABLET 2 MG PO (09:05)
--- NOTE | 2024-12-22 09:54 | P.PNNP_ITS ---
Progress Note: A&P Assessment and Plan (1) End stage renal disease: Code(s): N18.6 - End stage renal disease Status: Chronic Assessment and Plan: * HD under way * volume status doing fairly well. Fluid is coming off rather easily. * potassium okay * outpatient dialysis unit = [facility] * Okay for discharge from the kidney standpoint (2) Chest pain: Code(s): R07.9 - Chest pain, unspecified Status: Acute Assessment and Plan: * clinically better/resolved (3) SOB (shortness of breath): Code(s): R06.02 - Shortness of breath Status: Acute Assessment and Plan: * The patient says he short of breath again. * No signs of volume overload. * he does have some rhonchi and his symptoms almost sound like some reversible airways disease. * I talked with Dr. Mortensen * he will prescribe inhalers. * off oxygen * Pulmonary saw the patient. Preliminary note suggests reversible airways disease? (4) Fever: Code(s): R50.9 - Fever, unspecified Status: Acute Assessment and Plan: * resolved (5) Hypertension: Code(s): I10 - Essential (primary) hypertension Status: Chronic Assessment and Plan: * systolic under good control in the 120s to 140 (6) Anemia: Code(s): D64.9 - Anemia, unspecified Status: Chronic Assessment and Plan: * due to ESRD * Epogen with HD * hemoglobin 8.4. (7) Polycystic kidney disease: Code(s): Q61.3 - Polycystic kidney, unspecified Status: Chronic Assessment and Plan: * known diagnosis * etiology of ESRD Subjective Date/time seen: 12/22/24 09:54 Interval history: Patient is feeling okay. Breathing is better. Pulmonary saw the patient yesterday. The patient is on dialysis and tolerating it well. He was seen at 9:45 a.m. he is getting about 2 and half to3L off as tolerated. Blood pressure has been doing okay so so far Exam Narrative: General: WD/WN male in NAD Heart: normal S1 and S2; no rub or gallop Lungs: fairly clear bilaterally Abdomen: soft, nontender, nondistended, positive bowel sounds Extremities: no edema Skin: no rash or subcu nodule Objective Data Vital Signs Vital Signs: Vital Signs - 24 hr 12/21/24 13:01 12/21/24 13:08 12/21/24 14:00 Temperature 97.7 F Pulse Rate 94 98 99 Respiratory Rate 20 20 18 Blood Pressure 124/74 Pulse Oximetry 98 12/21/24 19:30 12/21/24 19:50 12/21/24 20:00 Temperature 97.8 F Pulse Rate 96 92 96 Respiratory Rate 18 20 20 Blood Pressure 142/87 H Pulse Oximetry 98 12/22/24 01:35 12/22/24 01:45 12/22/24 04:15 Temperature 97.2 F L Pulse Rate 90 89 99 Respiratory Rate 20 20 20 Blood Pressure 188/88 H Pulse Oximetry 99 12/22/24 05:22 12/22/24 08:25 12/22/24 08:38 Temperature 98.6 F Pulse Rate 92 92 Respiratory Rate 16 Blood Pressure 190/100 H 157/81 H 158/86 H Pulse Oximetry 99 12/22/24 08:45 12/22/24 09:00 12/22/24 09:15 Temperature Pulse Rate 91 101 H 100 Respiratory Rate Blood Pressure 164/87 H 115/92 H 155/100 H Pulse Oximetry 12/22/24 09:30 Temperature Pulse Rate 99 Respiratory Rate Blood Pressure 153/91 H Pulse Oximetry Intake/Output Intake/Output: Intake & Output 12/19/24 12/20/24 12/21/24 12/22/24 23:59 23:59 23:59 23:59 Intake Total 1270 1066 1150 692 Output Total 1999 150 325 175 Balance -730 916 825 517 Meds/Results Medications: Active Medications Generic Name Dose Route Start Last Admin Trade Name Freq PRN Reason Stop Dose Admin Acetaminophen 650 mg 12/10/24 08:43 12/12/24 21:33 Acetaminophen 325 Mg Tablet PO 650 mg Q4H PRN Administration Mild Pain (1-3) or Fever Albuterol/Ipratropium 3 ml 12/20/24 14:00 12/22/24 08:41 Ipratropium 0.5 Mg/Albuterol Sulfate 2.5 Mg Ampul.Neb 3 Ml INHALATION Not Given Q6HRT [facility] Aspirin 81 mg 12/10/24 09:00 12/21/24 08:32 Aspirin 81 Mg Enteric Tablet PO 81 mg QAM [facility] Administration Atorvastatin Calcium 40 mg 12/11/24 09:00 12/21/24 08:32 Atorvastatin 40 Mg Tablet PO 40 mg DAILY TICO Administration Bisacodyl 5 mg 12/10/24 08:43 12/17/24 14:22 Bisacodyl 5 Mg Tablet Ec PO 5 mg DAILY PRN Administration Constipation Bumetanide 2 mg 12/10/24 09:00 12/22/24 09:05 Bumetanide 1 Mg Tablet PO 2 mg DAILY TICO Administration Calcium Acetate 667 mg 12/14/24 08:00 12/22/24 09:04 Calcium Acetate 667 Mg Tablet PO 667 mg TIDWM TICO Administration Doxycycline Hyclate 100 mg 12/19/24 21:00 12/21/24 20:27 Doxycycline Hyclate 100 Mg Tablet PO 12/23/24 09:01 100 mg Q12HR TICO Administration Heparin Sodium (Porcine) 5,000 units 12/10/24 09:00 12/10/24 14:34 Heparin Sodium 5,000 Units/Ml Vial SUB-Q Not Given Q12HR [facility] Hydralazine HCl 100 mg 12/10/24 09:00 12/22/24 09:05 Hydralazine Hcl 50 Mg Tablet PO 100 mg TID TICO Administration Hydralazine HCl 10 mg 12/22/24 05:42 12/22/24 06:44 Hydralazine Hcl 20 Mg/Ml Vial IV PUSH 10 mg Q4H PRN Administration Blood Pressure - High Albumin Human 50 mls @ 999 mls/hr 12/10/24 00:29 Albutein IVPB 01/09/25 00:28 Q10M PRN HYPOTENSION Isosorbide Mononitrate 60 mg 12/10/24 20:00 12/22/24 09:04 Isosorbide Mononitrate 30 Mg Tab.Er.24h PO 60 mg TID@0600,1300,2000 [facility] Administration Nifedipine 90 mg 12/10/24 09:00 12/22/24 09:05 Nifedipine 30 Mg Tab.Er.24 PO 90 mg DAILY TICO Administration Nitroglycerin 0.4 mg 12/10/24 08:43 12/11/24 09:14 Nitroglycerin Sl 0.4 Mg Tablet SUBLINGUAL 0.4 mg Q5MIN PRN Administration Chest Pain Polyethylene Glycol 17 gm 12/17/24 12:54 12/18/24 09:15 Polyethylene Glycol 3350 17 Gm Powd.Pack PO 17 gm QAM PRN Administration Constipation Vitamin D 250 mcg 12/14/24 09:00 12/21/24 08:31 Cholecalciferol (Vitamin D3) 125 Mcg (5,000 Units) Tablet PO 250 mcg DAILY TICO Administration Radiology Results: ITS Impressions Chest/Abdomen/Pelvis CT 12/13/24 14:13 IMPRESSION: CHEST: 1. No acute cardiopulmonary pathology. 2. Trace of effusion seen in the lung bases. Pleural thickening cannot be excluded. ABDOMEN/PELVIS: 1. Polycystic kidneys. 2. Multiple cysts in the liver. 3. Constipation. Abdomen X-Ray 12/17/24 13:20 IMPRESSION: NO ACUTE ABDOMINAL FINDINGS. Constipation. Chest X-Ray 12/18/24 09:31 IMPRESSION: Prominent markings in the right lung base. Early pneumonia should be considered. Clinical evaluation and follow-up advised. Chest CTA 12/18/24 17:07 IMPRESSION: 1. . No pulmonary embolism. 2. No acute cardiopulmonary pathology. 3. Polycystic disease with cysts in the kidneys and the liver. 4. Sliding hiatus hernia. Labs Labs: Laboratory Results - last 24 hr 12/22/24 06:04 WBC 3.7 L RBC 2.70 L Hgb 7.9 L Hct 25.3 L MCV 93.7 MCH 29.3 MCHC 31.2 L RDW 17.8 H Plt Count 193 MPV 8.8 Sodium 132 L Potassium 4.8 Chloride 100 Carbon Dioxide 19 L Anion Gap 13 H BUN 76 H D Creatinine 12.95 H Estim Creat Clear Calc 6 Estimated GFR 4 L Glucose 84 Calcium 8.8 Phosphorus 5.8 H Magnesium 2.1 Albumin 3.7
[2024-12-22] MEDS: EPOETIN ALFA-EPBX 10,000 UNITS/ML VIAL 10000 UNITS IV PUSH (11:24)
[2024-12-22] MEDS: CHOLECALCIFEROL (VITAMIN D3) 125 MCG (5,000 UNITS) TABLET 250 MCG PO (12:49)
[2024-12-22] MEDS: ASPIRIN 81 MG ENTERIC TABLET PO (12:49)
[2024-12-22] MEDS: DOXYCYCLINE HYCLATE 100 MG TABLET PO (12:49)
[2024-12-22] MEDS: ATORVASTATIN 40 MG TABLET PO (12:50)
--- NOTE | 2024-12-22 14:24 | PM.DS ---
DS: Admitting Diagnosis Discharge Date 12/22/24 Admitting Diagnosis Shortness breath and chest pain DS: Discharge Diagnosis Discharge Diagnosis (1) Acute on chronic combined systolic and diastolic heart failure: Code(s): I50.43 - Acute on chronic combined systolic (congestive) and diastolic (congestive) heart failure Status: Acute (2) Hypertensive urgency: Code(s): I16.0 - Hypertensive urgency Status: Acute (3) Elevated troponin: Code(s): R77.8 - Other specified abnormalities of plasma proteins Status: Acute (4) Chest pain: Code(s): R07.9 - Chest pain, unspecified Status: Acute (5) ESRD (end stage renal disease) on dialysis: Code(s): N18.6 - End stage renal disease; Z99.2 - Dependence on renal dialysis Status: Acute (6) Chronic anemia: Code(s): D64.9 - Anemia, unspecified Status: Acute Plan Chest pain Elevated troponin x2 EKG shows sinus rhythm no specific ST T-wave changes Possible demand ischemia due to acute heart failure, also possible due to NSTEMI Continue aspirin 81 mg b.i.d. p.o., Imdur 30 mg daily p.o. nitroglycerin sublingual p.r.n. Pending echocardiogram court recording monitor consult dry placer machine operator for evaluation treatment Cardiac catheterization today showed patent coronary artery Acute on chronic combined heart failure Patient shortness breath, x-ray shows pulmonary congestion Resulting from fluid overload due to missing dialysis Provide Lasix 100 mg IV push once, Consult quality inspector for dialysis Patient still fluid overloaded, plans hemodialysis today Hypertension urgency Continue hydralazine 100 mg t.i.d. p.o. Nifedipine 90 mg daily p.o. Labetalol IV p.r.n. Patient fluid overload 80 Consult quality inspector controlled in target range Chronic anemia No obvious bleeding Resulting from CKD Management per quality inspector stable Fever Patient has been having fever since yesterday evening, temperature 100.2? study abroad coordinator 12/12 Pending blood culture Small left pleural effusion without focal infiltrate chest x-ray on 12/12 on ceftriaxone 2 g IV daily since 12/12 Urinalysis does not suggest your infection, Unclear sources of infection 12/13 CT chest abdomen pelvis did not show pneumonia, abscess, diverticulitis obvious source infection Had low-grade fever 99.9 in the night. On ceftriaxone and add vancomycin, pending respiratory pathogen panel 12/14 blood culture no growth so far, patient is afebrile, changed to Augmentin p.o. 12/15 Patient with history of ESRD on HD, presented with c/o CP and shortness of breath upon arrival patient tropes were elevated patient was seen by the dry placer machine operator and had cardiac cath which showed mild CAD, on 12/17 c/o abdominal pain and bloating, KUB showed intestine full of stool gave miralax and Dulcolax suppository and later patient did have a BM, patient still c/o of shortness of breath despite 3 sessions of HD, with ultra filtration, chest x-ray shows early signs of pneumonia, patient lungs has fair entry, will start patient on ceftriaxone and doxycycline, will CTA of chest, will monitor. patient received several DUO nebs and again patient stats he is short of breath, CTA of chest was negative for PE, patient had dialysis, patient was seen by Dr. De La Paz recommended breathing treatment, patient was given duo neb and now patient stats he is not felling well and has shortness of breath, will continue breathing treatment, will monitor today and will consult tools and parts attendant for further recommendations, will monitor. May discharge patient tomorrow if not fluid overloaded DS: Summary Hospital Course Hospital Course: Patient with history of ESRD on HD, presented with c/o CP and shortness of breath upon arrival patient tropes were elevated patient was seen by the dry placer machine operator and had cardiac cath which showed mild CAD, on 12/17 c/o abdominal pain and bloating, KUB showed intestine full of stool gave miralax and Dulcolax suppository and later patient did have a BM, patient still c/o of shortness of breath despite 3 sessions of HD, with ultra filtration, chest x-ray shows early signs of pneumonia, patient lungs has fair entry, will start patient on ceftriaxone and doxycycline, will CTA of chest, will monitor. patient received several DUO nebs and again patient stats he is short of breath, CTA of chest was negative for PE, patient had dialysis, patient was seen by Dr. De La Paz recommended breathing treatment, patient was given duo neb and now patient stats he is not felling well and has shortness of breath, will continue breathing treatment, will monitor today and patient was seen by tools and parts attendant for further recommendations, will monitor. today patient stats he is feeling better and able breath better will discharge today. Time Spent with Patient Time attestation: Total time spent providing and/or coordinating discharge services: Exam Narrative: Patient is comfortable, NAD HEENT: eyes are clear and none icteric LUNGS: Bilateral fair entry with rales and rhonchi HEART: RR S1S2 ABD: BS+, Soft and nontender Lower extremities: no edema SKIN: nonjaundiced Neuro: grossly intact. DS: Data Data Completed and Pending Labs on day of discharge: Labs from last 24 hours 12/22/24 06:04 WBC 3.7 L RBC 2.70 L Hgb 7.9 L Hct 25.3 L MCV 93.7 MCH 29.3 MCHC 31.2 L RDW 17.8 H Plt Count 193 MPV 8.8 Sodium 132 L Potassium 4.8 Chloride 100 Carbon Dioxide 19 L Anion Gap 13 H BUN 76 H D Creatinine 12.95 H Estim Creat Clear Calc 6 Estimated GFR 4 L Glucose 84 Calcium 8.8 Phosphorus 5.8 H Magnesium 2.1 Albumin 3.7 Discharge Plan Discharge Attending physician on discharge: Micheline Jeronimo Consulting providers: Chaparro Holcomb; Mita Major; Denice Benoit; Ronal Welsh; Micheline Jeronimo; Senthil Reynolds; John Reza; Deniz De La Paz; Larisa,Evan Tse; Huma Tripathi; Dario Hayes Discharging Clinician: Micheline Jeronimo Anticipated Discharge Date/Time: 12/22/24 14:05 Patient Disposition: Home Activity: as tolerated Diet: as tolerated and heart healthy Discharge Instructions: [facility] [address] [place], [place] [id number] DISCHARGE INSTRUCTIONS - POST RADIAL CATH Activity 1. No driving for 24 hours. 2. No lifting more than 5 lb with affected arm for 1 week. 3. May shower ( tomorrow) but no excessive soaking of affected hand/wrist (such as washing dishes), swimming pool or hot tub for 5 days. Wound Care 1. May remove arm board in the morning. 2. May remove gauze dressing in the morning and put Band-Aid over affected radial site. Keep site covered for 3 days. 3. Observe for redness, drainage, swelling or bleeding. Medications DO NOT STOP YOUR MEDICATIONS ONLY YOUR GREEN HOUSE MANAGER CAN STOP THE FOLLOWING MEDICATIONS - PLEASE CALL THE OFFICE WITH QUESTIONS. *Aspirin *Atorvastatin *Metoprolol Important Reminders 1. If you received a stent, keep your stent card in your wallet at all times 2. Follow a heart healthy diet paying extra attention to cholesterol and fats. 3. Stay hydrated. 4. If you have chest pain unrelieved by rest or nitroglycerin (if prescribed) call 911 immediately. 5. If you miss one dose of Brilinta (if prescribed) take a tablet at the next time due. If you miss 2 doses take a tablet when you remember and resume at the next time due. *For any other questions please call the office at [phone]. Office hours are 8AM 4:30PM Sunday through Sunday. Patient to follow discharge instruction from his dry placer machine operator, quality inspector and tools and parts attendant and follow up as scheduled, patient to follow up with his primary care provider as soon as possible. patient is instructed if any symptoms worsen to go to nearest ER. Patient Instructions: Antibiotic Form, Heart Failure (DC), Acute Coronary Syndrome (DC) Patient Language: Italian Stand Alone Forms: General Discharge Information Follow-up/Referrals: Quan,DEMI Souza [Primary Care Provider] - (Patient needs see PCP 1 week) Denice Benoit MD [Physician] - Chaparro Holcomb MD [Physician] - (Patient needs see quality inspector at scheduled appointment) Mita Major MD [Physician] - (Patient needs to see dry placer machine operator at scheduled appointment) Discharge Medications: New atorvastatin 40 mg Tablet 40 mg PO DAILY Qty: 60 0RF nitroglycerin [Nitrostat] 0.4 mg Tablet, Sublingual 0.4 mg sublingual Q5MIN PRN (Reason: Chest Pain) Qty: 30 0RF bisacodyl [Laxative (bisacodyl)] 5 mg Tablet,Delayed Release (Dr/Ec) 5 mg PO DAILY PRN (Reason: Constipation) Qty: 30 0RF ipratropium-albuterol 0.5 mg-3 mg(2.5 mg base)/3 mL Solution For Nebulization 3 ml inhalation Q6HRT Qty: 90 0RF polyethylene glycol 3350 [Miralax] 17 gram Powder In Packet 17 g PO QAM PRN (Reason: Constipation) Qty: 14 0RF doxycycline hyclate 100 mg Tablet 100 mg PO Q12HR Qty: 10 0RF albuterol sulfate [Ventolin HFA] 90 mcg/actuation HFA aerosol inhaler 1 inh inhalation QID PRN (Reason: shortness of breath or wheezing) Qty: 8.5 0RF (DME) compressor, for nebulizer Device See Rx Instructions .Route Qty: 1 0RF Rx Instructions: As directed Continued calcium acetate(phosphat bind) 667 mg Tablet 667 mg PO TID Qty: 90 1RF aspirin 81 mg Tablet,Delayed Release (Dr/Ec) 81 mg PO QAM Qty: 30 1RF bumetanide 2 mg tablet 2 mg PO DAILY Qty: 60 1RF omega 1-xfa-hwh-fish oil 900-1,400 mg capsule,delayed release(DR/EC) 1 cap PO DAILY cholecalciferol (vitamin D3) 250 mcg (10,000 unit) capsule 250 mcg PO DAILY Liquacel 16-100 gram-kcal/30 mL liquid 30 ml PO DAILY isosorbide mononitrate 30 mg Tablet Extended Release 24 Hr 30 mg PO TID nifedipine 90 mg tablet extended release 24hr 90 mg PO DAILY Qty: 60 0RF hydralazine 100 mg tablet 100 mg PO TID Qty: 270 3RF Date of admission: 12/10/24 00:14 Primary Care Provider: QaunLibby Admitting Provider: Kelsy Chu Attending physician on admission: Ravi Mortensen Condition: Improved
== END 2024-12-22 13:50 | disposition home or self-care (01) | DRG 280 ==
LOC: ANHED 22:54 → ANH3MEDSUR 12-10 01:01 → ANHIMU 12-15 17:06 → ANH3MEDSUR 12-21 18:13 → ANHIMU 12-23 08:48
PROVIDERS: Hospitalist; Internal Medicine; Internal Medicine Interventional Cardiology; Internal Medicine Nephrology; Nurse Practitioner Adult Health; Student in an Organized Health Care Education/Training Program; Admitting Provider Internal Medicine; Emergency Provider Emergency Medicine; PCP Nurse Practitioner Family; Visit Provider Family Medicine
PROC: 4A023N7 Measurement of Cardiac Sampling and Pressure, Left Heart, Percutaneous Approach (ICD-10-PCS; CPT 93454; principal; 2024-12-15 10:30)
DX: I50.43 Acute on chronic combined systolic (congestive) and diastolic (congestive) heart failure (principal); J18.9 Pneumonia, unspecified organism; I21.A1 Myocardial infarction type 2; N18.6 End stage renal disease; I13.2 Hypertensive heart and chronic kidney disease with heart failure and with stage 5 chronic kidney disease, or end stage renal disease; Q61.2 Polycystic kidney, adult type; I25.10 Atherosclerotic heart disease of native coronary artery without angina pectoris; Z99.2 Dependence on renal dialysis; Z79.82 Long term (current) use of aspirin; I16.0 Hypertensive urgency; D63.1 Anemia in chronic kidney disease; Z20.822 Contact with and (suspected) exposure to COVID-19
CPT/HCPCS: 36415; 71045; 71046; 71250; 71275; 74018; 74176; 80053; 80061; 80069; 80202; 81001; 83690; 83735; 84100; 84484; 85025; 85027; 85610; 85730; 86706; 87040; 87086; 87340; 87633; 87637; 87641; 93005; 93306; 93454; 94640; 94667; 96361; 99285; A9270; C1769; C1887; C1894; G0257; J0360; J0696; J1644; J1938; J2003; J2250; J2305; J3010; J3373; J7030; J7040; Q5105; Q9967

== ENCOUNTER 2024-12-23 05:21 | Emergency (ER) | payer MEDICARE, MEDICAID, SELFPAY ==
--- NOTE | ~2024-12-23 | CT_ITS ---
EXAM: CTA UE LT12/23/2024 6:51 CDT HISTORY: Dialysis access, pain at fistula site, enlarging . Dialysis access, pain at fistula site, e nlarging TECHNIQUE: CTA of the left upper extremity with intravenous contrast was performed. 3-D reconstructe d images were generated on a [employer] workstation. Automatic exposure control was used for this stud y. CONTRAST: 100 cc of Isovue-370 was used for this study COMPARISON: None available. FINDINGS: Arterial vasculature: The left subclavian, axillary, brachial, radial and ulnar arteries are normal i n course and caliber. Venous vasculature: The internal jugular veins, subclavian vein, brachial vein and splenic veins are patent. 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 Lines/devices: None. Hemithorax: No pleural or pneumothorax seen. No soft tissue abnormality seen in partially visualized soft tissue structures. Bones/soft tissues: No acute osseous abnormality seen. 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 Reviewed, dictated and finalized at location A. Impression: Aneurysmal dilatation of the juxta anastomotic segment and proximal venous outf low tract (cephalic vein), measuring up to 3.8 x 2.6 cm, right above the elbow.
--- NOTE | ~2024-12-23 | XR_ITS ---
EXAMINATION: XR chest 1V portable 12/23/2024 06:08 INDICATION: Arm pain. PROCEDURE: AP portable chest COMPARISON: Comparison to multiple prior studies sequentially, with oldest reviewed study dated 12/03. FINDINGS: The lungs are clear. The cardiomediastinal silhouette is within normal limits. There are no pleural effusions. There is no pneumothorax suspected. IMPRESSION: 1: NO ACUTE CARDIOPULMONARY DISEASE. Reviewed, dictated and finalized at location A.
--- OUTSIDE RECORDS SUMMARY | 2024-12-23 05:24 | XMS_ITS | Clinical Summary ---
Author Organization [facility] [email or web address] Address [address] [place] [address] Care Team Providers Care Printing Roller Handler Name Role Phone John Acharya MD Primary Care Provider [phone] Source Comments [email or web address],non-owned Affiliates and Associated Physician Practices is amultiple site organization consisting of ambulatory clinics and hospital sitesin [place], [place], [place] and [place]. This disclosure is being madepursuant to the Care Everywhere program and may not contain all information available regarding this patient. Last updated 18.[email or web address] Allergies No known active allergies Medications * [...] on file Legal Sex Male 9:07 AM ANIMAL DAMAGE CONTROL AGENT Gender Identity Not on file Sexual Orientation Not on file Last Filed Vital Signs Vital Sign Reading Time Taken Comments Blood Pressure 123/81 06/30/2024 2:15 PM ANIMAL DAMAGE CONTROL AGENT Pulse 91 06/30/2024 2:15 PM ANIMAL DAMAGE CONTROL AGENT Temperature 37.5 C (99.5 F) 06/30/2024 1:15 PM ANIMAL DAMAGE CONTROL AGENT Respiratory Rate 20 06/30/2024 2:15 PM ANIMAL DAMAGE CONTROL AGENT Oxygen Saturation 95% 06/30/2024 2:15 PM ANIMAL DAMAGE CONTROL AGENT Inhaled Oxygen Concentration - - Weight 83.5 kg (184 lb) 06/30/2024 1:15 PM ANIMAL DAMAGE CONTROL AGENT Height 185.4 cm (6' 1) 06/30/2024 1:15 PM ANIMAL DAMAGE CONTROL AGENT Body Mass Index 24.28 06/30/2024 1:15 PM ANIMAL DAMAGE CONTROL AGENT Plan of Treatment Upcoming Encounters Date Type Department Care Team (Late st Contact Info) Description 06/29/2025 2:15 PM ANIMAL DAMAGE CONTROL AGENT Appointment [facility] [address] [place] [address] [place] [address] [address] [place] [address] Health Maintenance Due Date Last [...] PANEL (CALCIUM TOTAL) STAT 08/08/2022 10:08 AM ANIMAL DAMAGE CONTROL AGENT Preop examination from Last 3 Months or Most Recently Relevant to Health Maintenance Results * (ABNORMAL) BASIC METABOLIC PANEL (CALCIUM TOTAL) (08/08/2022 10:08 AM ANIMAL DAMAGE CONTROL AGENT) Glucose 97 70 - 105 mg/dL 08/08/2022 10:33 AM ANIMAL DAMAGE CONTROL AGENT [facility] Sodium 137 136 - 145 mmol/L 08/08/2022 10:33 AM ANIMAL DAMAGE CONTROL AGENT [facility] Potassium 4.5 3.5 - 5.1 mmol/L 08/08/2022 10:33 AM [facility] Chloride 99 98 - 107 mmol/L 08/08/2022 10:33 AM [facility] CO2 25 23 - 31 mmol/L 08/08/2022 10:33 AM [facility] Calcium 8.4 8.4 - 10.4 mg/dL 08/08/2022 10:33 AM [facility] Anion Gap 13 8 - 18 mmol/L 08/08/2022 10:33 AM [facility] BUN 54(H) 8.4 - 25.7 mg/dL 08/08/2022 10:33 AM [facility] Creatinine 11.06(H) 0.72 - 1.25 mg/dL 08/08/2022 10:33 AM [facility] eGFR by CKD-EPI 5(L) >=90 mL/min/1.7 3 m2 08/08/2022 10:33 AM [facility] Blood BLOOD SPECIMEN / Unknown Venipuncture / Unknown 08/08/2022 10:08 AM ANIMAL DAMAGE CONTROL AGENT 08/08/2022 10:16 AM [facility] us Suzi Allen DO LAB - CHEMISTRY ORDERABLES Tori quintana Result [facility] [address] [place] [address] from Last 3 Months or Most Recently Relevant to Health Maintenance Insurance MEDICAID - [place] UHC MANAGED MEDICARE ADV Care Teams Printing Roller Handler Relationship Specialty Start Date End Date John Acharya MD [address] [address] PCP - General 06/19/22
--- OUTSIDE RECORDS SUMMARY | 2024-12-23 05:25 | XMS_ITS | Encounter Summary ---
Author Organization [facility] Address [address] [place] [address] Care Team Providers Care Director Medical Surgical Name Role Phone Libby Glass NP Primary Care Provider [phone] Chaparro Holcomb MD Unavailable [phone] Leny Mares RN Unavailable Encounter Details Date Type Department Care Team (Late st Contact Info) Description 07/11/2024 Documentation [facility] [address] [place] [address] Cheyanne Combs RN Social History Tobacco Use Types Packs/Day Years Used Date Smoking Tobacco: Never Smokeless Tobacco: Never C Utilities Answer Date Recorded In the past 12 months has [employer] electric, gas, oil, or water company threatened [...] often do you attend chur ch or uatsdin services? 1 to 4 times per year 06/13/2024 Do you belong to any clubs o r organizations such as orthodox groups, unions, fraternal or athletic groups, or [...] place to sleep or slept in a senior living (including now)? No 06/12/2023 Housing Stability Vital Sign Answer Nikolai e Recorded In the last 12 months, was t here a time when you were not able to pay the mortgage or rent on time? No 06/13/2024 In the past 12 months, how m any times have you moved where you were living? 1 06/13/2024 At any time in the past 12 m [facility], were you homeless or living in a senior living (including now)? No 06/13/2024 Personal Safety Answer Date Recorded Have you ever been in or are you currently in a harmful physical or emotional relationship or is someone making you feel afraid or unsafe? Denies 07/11/2024 Sex and Gender Information Value Date Recorded Sex Assigned at Not on file Legal Sex Male 2:12 AM STOCK FEEDER Gender Identity Not on file Sexual Orientation Not on file documented as of this encounter Plan of Treatment Not on file documented as of this encounter Visit Diagnoses Not on filedocumented in this encounter Additional Health Concerns Infection Onset Date Last Indicated Resolved Time COVID: Suspected 08/15/2024 08/15/2024 08/15/2024 3:49 PM CDT documented as of this encounter Care Teams Director Medical Surgical Relationship Specialty Start Date End Date Libby Glass NP [address] [facility] [address] [place] [address] PCP - General Internal Medicine 10/27/22 Chaparro Holcomb MD [address] [facility] [address] [place] [address] Referring Physician Nephrology 10/27/22 Leny Mares RN [address] [facility] [address] [place] [address] Customer Success Representative 02/15/23 [facility] Dentist 08/23/23 documented as of this encounter
--- OUTSIDE RECORDS SUMMARY | 2024-12-23 05:25 | XMS_ITS | Clinical Summary ---
Author Organization [facility] [address] Address [address] [place] [address] Care Team Providers Care Motorcycle Subassembler Name Role Phone Libby Glass NP Primary Care Provider [phone] Chaparro Holcomb MD Unavailable [phone] Leny Mares RN Unavailable Allergies No [...] next few days. Prescribed lidocaine patches at [place] Assessment & Plan (06/27/2024 4:28 PM MANAGER LIFE INSURANCE): Unclear etiology for chest pain. Initial workup [...] dc Assessment & Plan (06/27/2024 4:01 PM MANAGER LIFE INSURANCE): On home Bumex 2mg, nifedipine, Imdur, hydral [...] phoslo Assessment & Plan (06/27/2024 4:01 PM MANAGER LIFE INSURANCE): On schedule as outpatient - 06/26 iHD completed - Local Dialysis Center [facility] in [facility]. - Nephrology ESRD Team following Resolved Problems Problem Noted Date Diagnosed Date Resolved Date BMI 25.0-25.9,adult 02/28/2023 07/01/19 25 Assessment & Plan (03/21/2024 1:04 PM CDT): Weight/BMI is in healthy range. Continue healthy lifestyle to maintain. Assessment & Plan (01/07/2024 1:34 PM CDT): Weight/BMI is in healthy range. Continue healthy lifestyle to maintain. Encounters Date Type Department Care Team Description 12/16/2024 Orders Only [facility] Cardiology [address] [place] [address] Mita Major MD 2024 Telephone [facility] Cardiology [address] [facility] 8th [place] [address] [place] [address] Giuliana Grullon CPhT 12/12/2024 Telephone [facility] Medical [facility] Cardiology [address] [place] [address] Mita Major MD 12/10/2024 Orders Only [facility] Health Information Management [address] [place] [address] Libby Glass NP 12/03/2024 10:00 AM CDT - 12/03/2024 11:59 PM CDT Hospital Encounter [address] [address] ESRD (end stage renal disease) (HCC) Discharge Disposition: Discharge to home or self care 11/03/2024 10:00 AM CDT - 11/03/2024 11:59 PM CDT Hospital Encounter [address] [address] ESRD (end stage renal disease) (HCC) Discharge Disposition: Discharge to home or self care 10/17/2024 Telephone [facility] Transplant Kidney [address] [facility] [phone] [place] [address] Leny Mares, TERRI 10/16/2024 Telephone [facility] Transplant Kidney [address] [facility] [phone] [place] [address] Leny Mares, TERRI 10/15/2024 10:00 AM CDT - 10/15/2024 11:59 PM CDT Hospital Encounter [address] [address] ESRD (end stage renal disease) (HCC) Discharge [...] Tobacco: Never Tobacco Cessation:Counseling Given: Not Answered [facility] Utilities Answer Date Recorded In the past 12 months has e [employer], gas, oil, or water [employer] threatened to shut off services in your [...] often do you attend chur ch or druze services? 1 to 4 times per year 06/13/2024 Do you belong to any clubs o r organizations such as pentecostalism groups, unions, fraternal or athletic groups, or [...] place to sleep or slept in a jail (including now)? No 06/12/2023 Housing Stability Vital [...] were you homeless or living in a jail (including now)? No 06/13/2024 Personal Safety Answer Date Recorded Have you ever been in or are you currently in a harmful physical or emotional relationship or is someone making you feel afraid or unsafe? Denies 08/15/2024 Sex and Gender Information Value Date Recorded Sex Assigned at Not on file Legal Sex Male 2:12 AM MANAGER LIFE INSURANCE Gender Identity Not on file Sexual Orientation [...] - PCV) 11/15/2023 11/14/2022 Covid-19 Vaccine (4 - 2023-2 5 season) 2024 10/17/2021, 02/09/2021, 01/12/2021 Regular Well Visit/Exam 18-64 01/06/2025 01/07/2024, 10/27/2022 Influenza Vaccine (#1) 2025 , 04/08/2023, 04/08/2023, Additional history exists Depression Screening 07/01/2025 07/01/2024, 03/21/2024, 01/07/2024, Additional history exists Prostate Cancer Screening-PSA 01/08/2026 01/09/2024, 05/30/2023 Colon Cancer Screening-Colonoscopy 10/27/2032 05/26/ 2023 Hepatitis C Screening Completed 05/30/2023 Hepatitis B Screening Completed 08/15/2024 , 11/01/2023, 09/28/2022, Additional history exists Procedures Procedure Name Priority Date/Time Associated Diagnosis Comments CARDIOLOGY DOCUMENT SCAN Routine 2024 5:20 PM CDT CARDIOLOGY DOCUMENT SCAN Routine 12/14/2024 5:18 PM CDT CARDIOLOGY DOCUMENT SCAN Routine 12/13/2024 5:16 PM CDT CARDIOLOGY DOCUMENT SCAN Routine 12/11/2024 5:15 PM CDT CARDIOLOGY DOCUMENT SCAN Routine 12/10/2024 5:09 PM CDT SCAN - RADIOLOGY/IMAGING 12/10/2024 HLA ANTIBODY SCREEN - PRA (CLASS I [...] HEPATITIS C ANTIBODY Routine 05/30/2023 12:42 PM MANAGER LIFE INSURANCE End stage renal disease (HCC) COLONOSCOPY Routine 10/27/2022 10:35 AM CDT from Last 3 Months or Most Recently Relevant to Health Maintenance Results * Cardiology Document Scan (2024 5:20 PM CDT) Anatomical Region Laterality Modality Other Senthil Reynolds MD CV CARDIAC SERVICES PROCEDURES F inal Result * Cardiology Document Scan (12/14/2024 5:18 PM CDT) Anatomical Region Laterality Modality Other John Reza MD CV CARDIAC SERVICES PROCE DURES Final Result * Cardiology Document Scan (12/13/2024 5:16 PM CDT) Anatomical Region Laterality Modality Other John Reza MD CV CARDIAC SERVICES PROCE DURES Final Result * Cardiology Document Scan (12/11/2024 5:15 PM CDT) Anatomical Region Laterality Modality Other Mita Major MD CV CARDIAC SERVICES PROCEDU RES Final Result * Cardiology Document Scan (12/10/2024 5:09 PM CDT) Anatomical Region Laterality Modality Other Mita Major MD CV CARDIAC SERVICES PROCEDU RES Final Result * SCAN - RADIOLOGY/IMAGING (12/10/2024) Anatomical Region Laterality Modality Other Libby Glass ROTOGRAVURE PRESS OPERATOR Final Result * HLA Antibody Screen by PRA or SAB per Schedule (Class I and Class II) (12/03/2024 10:00 AM CDT) Blood 12/03/2024 10:0 0 AM CDT Narrative HISTOTRAC - MANAGER LIFE INSURANCE Sample received in lab. PRA Screen ordered. Result [facility] Wayne Abraham MD LAB BLOOD ORDERABLES Final [...] a method developed and validated by the [facility] HLA laboratory based on an FDA- approved IVD kit (StarMaker Interactivecreen PRA, [employer], [place], [place]). Interpretive comments: The percentage of beads with MFI > 750 is reported, which indicates the percentage of donor population estimated to be incompatible with the patient tested. PRA > 0% is consistent with alloimmunization to HLA. Testing performed at the [facility] Laboratory, [address] [place] [address], 5th floor, [place], [address]. [facility] # [id number]. Donna Paulson, Ph.D., Medical Billing Instructor, HLA Laboratory Lazaro Hernandez M.D., Ph.D., Color Corrector, HLA Laboratory Tammy Estevez, Ph.D., CLIA Color Corrector, [facility] Clinical Laboratories Current methodology and interpretive comments last revised on 09/26/2017. us Wayne Abraham MD LAB BLOOD ORDERABLES Final Resu lt HISTOTRAC * HLA Antibody Screen by PRA or SAB per Schedule (Class I and Class II) (11/03/2024 10:00 AM CDT) Blood 11/03/2024 10:0 0 AM CDT Narrative HISTOTRAC - MANAGER LIFE INSURANCE Sample received in lab and stored. No testing performed at this time. us Wayne Abraham MD LAB BLOOD ORDERABLES Final Resu lt HISTOTRAC * HLA Antibody Screen by PRA or SAB per Schedule (Class I and Class II) (10/15/2024 10:00 AM CDT) Blood 10/15/2024 10:0 0 AM CDT Narrative HISTOTRAC - MANAGER LIFE INSURANCE Sample received in lab. PRA Screen ordered. [...] a method developed and validated by the [facility] HLA laboratory based on an FDA- approved IVD kit (LABScreen PRA, [employer], [place], [place]). Interpretive comments: The percentage of beads with MFI > 750 is reported, which indicates the percentage of donor population estimated to be incompatible with the patient tested. PRA > 0% is consistent with alloimmunization to HLA. Testing performed at the [facility] Laboratory, [address] [place] [address], 5th floor, [place], [address]. CLIA # [id number]. Donna Paulson, Ph.D., Medical Billing Instructor, HLA Laboratory Lazaro Hernandez M.D., Ph.D., Color Corrector, HLA Laboratory Tammy Estevez, Ph.D., ABIGAIL Color Corrector, [facility] Clinical Laboratories Current methodology and interpretive comments last revised on 09/26/2017. Wayne Abraham MD LAB BLOOD ORDERABLES Final Resu lt Performing Organization Address [facility] Co de Phone Number HISTOTRAC * PSA screen (01/09/2024 11:10 AM CDT) PSA 0.82 < OR = 4.00 ng/mL [facility] Comment: The total PSA value from this assay system is standardized against the WHO standard. The test result will be approximately 20% lower when compared to the equimolar-standardized total PSA (Osman [place]). Comparison of serial PSA results should be interpreted with this fact in mind. This test was performed using the Siemens chemiluminescent method. Values obtained from different assay methods cannot be used interchangeably. PSA levels, regardless of value, should not be interpreted as absolute evidence of the presence or absence of disease. 01/09/2024 11:1 0 AM CDT 01/09/2024 11:11 AM CDT Libby Glass ROTOGRAVURE PRESS OPERATOR LAB BLOOD ORDERABLES Final Re sult Performing Organization Address [facility] Co de Phone Number QUEST [facility] [address] [place] [address] * Hepatitis C antibody Blood (05/30/2023 12:42 PM MANAGER LIFE INSURANCE) Hep C Ab Nonreactive Nonreactive [facility] Comment:Antibodies to HCV no t detected. Does NOT exclude the possibility of recent exposure to HCV. Current interpretive data was last revised on 22 Blood 05/30/2023 12:4 2 PM MANAGER LIFE INSURANCE 05/30/2023 1:22 PM MANAGER LIFE INSURANCE Narrative [facility] - 05/30/2023 2:06 PM MANAGER LIFE INSURANCE This lab is being obtained as part of a Kidney transplant evaluation, is time sensitive, and should only be drawn during the evaluation visit at [facility] Lab. Leta Rudolph MD LAB MICROBIOLOGY - GENERAL ORDERABLES Final Result [facility] One [facility] [place] [address] * Colonoscopy (10/27/2022 10:35 AM CDT) Anatomical Region Laterality Modality Other Historical Provider ENDOSCOPY PROCEDURES Tori l Result from Last 3 Months or Most Recently Relevant to Health Maintenance Insurance IDPA [facility] MEDICARE [facility] Address: [address] [address] [place] [address] [facility] MEDICARE [facility] Address: [address] [address] [place] [address] [facility] MEDICARE ADVANTAGE IDPA Advance Directives For more information, please contact: [phone] * Full Code (Latest Code Status on File) Date Activated Date Inactivated Comments 08/15/2024 7:16 PM 08/16/2024 4:50 PM * Full Code Date Activated Date Inactivated Comments 06/25/2024 1:35 AM 06/27/2024 10:47 PM * Full Code Date Activated Date Inactivated Comments 10/17/2023 10:40 AM 10/19/2023 5:30 PM Care Teams Motorcycle Subassembler Relationship Specialty Start Date End Date Faires, Libby M., ROTOGRAVURE PRESS OPERATOR [address] [facility] [address] [place] [address] PCP - General Internal Medicine 10/27/22 Chaparro Holcomb MD [address] [facility] [address] [place] [address] Referring Physician Nephrology 10/27/22 Leny Mares, RN [address] [facility] [address] [place], [place] [id number] Animal Shelter Clerk 02/15/23 [facility] Center Dentist 08/23/23
--- OUTSIDE RECORDS SUMMARY | 2024-12-23 05:25 | XMS_ITS ---
Author Organization [facility] [address] Address [address] [place] [address] Care Team Providers Care Treadle Cut Off Saw Operator Name Role Phone Libby Glass NP Primary Care Provider [phone] Chaparro Holcomb MD Unavailable [phone] Leny Mares RN Unavailable [phone] Dialysis Access Sites Type Status Location Placement [...] HEPATITIS C ANTIBODY Routine 05/30/2023 12:42 PM SECOND CHEF End stage renal disease (HCC) COLONOSCOPY Routine [...] next few days. [place] Assessment & Plan (06/27/2024 4:28 PM SECOND CHEF): Unclear etiology for chest pain. Initial workup [...] dc Assessment & Plan (06/27/2024 4:01 PM SECOND CHEF): On home Bumex 2mg, nifedipine, Imdur, hydral [...] phoslo Assessment & Plan (06/27/2024 4:01 PM SECOND CHEF): On schedule as outpatient - 06/26 iHD completed - Local D[facility] in [facility]. - Nephrology ESRD Team following Immunizations Immunization Administration Dates Next Due Hep B Vaccine 11/01/2023, 3,08/25/2022, 3 Influenza, Unspecified 03/21/2024,2022,06/04/2022(Deferred: Patient Refused),03/18/2022 PPD TEST 10/09/2023, 3,06/21/2022, 2 Pneumococcal Polysaccharide PPV23 11/14/2022 Social History Tobacco Use Types Packs/Day Years Used Date Smoking Tobacco: Never Smokeless Tobacco: Never Tobacco Cessation:Counseling Given: Not Answered [facility] Utilities Answer Date Recorded In the past 12 months has e [employer], gas, oil, or water [email or web address] threatened to shut off services in your [...] often do you attend chur ch or muslim services? 1 to 4 times per year 06/13/2024 Do you belong to any clubs o r organizations such as christianity groups, unions, fraternal or athletic groups, or [...] any time in the past 12 m [facility], were you homeless or living in a alf (including now)? No 06/13/2024 Personal Safety Answer Date Recorded Have you ever been in or are you currently in a harmful physical or emotional relationship or is someone making you feel afraid or unsafe? Denies 08/15/2024 Sex and Gender Information Value Date Recorded Sex Assigned at Not on file Legal Sex Male 2:12 AM SECOND CHEF Gender Identity Not on file Sexual Orientation [...] 24.06 08/15/2024 6:20 PM CDT Results * Cardiology Document Scan (2024 5:20 PM CDT) Anatomical Region Laterality Modality Other us Senthil Reynolds MD CV CARDIAC SERVICES PROCEDURES [...] Anatomical Region Laterality Modality Other Libby Glass COMMUNICATIONS ANALYST Final Result * HLA Antibody Screen by PRA or SAB per Schedule (Class I and Class II) (12/03/2024 10:00 AM CDT) Blood 12/03/2024 10:0 0 AM CDT Narrative HISTOTRAC - SECOND CHEF Sample received in lab. PRA Screen ordered. [...] based on an FDA- approved IVD kit (Buzzoocreen PRA, [employer], [place], [place]). Interpretive comments: The percentage of beads with MFI > 750 is reported, which indicates the percentage of donor population estimated to be incompatible with the patient tested. PRA > 0% is consistent with alloimmunization to HLA. Testing performed at the [facility] HLA Laboratory, [address] [place] [address], 5th floor, [place], [address]. [facility] # [id number]. Donna Paulson, Ph.D., Nursing Aide, HLA Laboratory Lazaro Hernandez M.D., Ph.D., Lead Ruby On Rails Developer, HLA Laboratory Tammy Estevez, Ph.D., CLIA Lead Ruby On Rails Developer, [facility] Clinical Laboratories Current methodology and interpretive comments last revised on 09/26/2017. us Wayne Abraham MD LAB BLOOD ORDERABLES Final Resu lt HISTOTRAC * HLA Antibody Screen by PRA or SAB per Schedule (Class I and Class II) (11/03/2024 10:00 AM CDT) Blood 11/03/2024 10:0 0 AM CDT Narrative HISTOTRAC - SECOND CHEF Sample received in lab and stored. No testing performed at this time. Wayne Abraham MD LAB BLOOD ORDERABLES Final Resu lt HISTOTRAC * HLA Antibody Screen by PRA or SAB per Schedule (Class I and Class II) (10/15/2024 10:00 AM CDT) Blood 10/15/2024 10:0 0 AM CDT Narrative HISTOTRAC - SECOND CHEF Sample received in lab. PRA Screen ordered. [...] FDA- approved IVD kit (LABScreen PRA, [employer], [place], [place]). Interpretive comments: The percentage of beads with MFI > 750 is reported, which indicates the percentage of donor population estimated to be incompatible with the patient tested. PRA > 0% is consistent with alloimmunization to HLA. Testing performed at the [facility] Laboratory, [address] [place] [address], 5th floor, [place], [address]. CLIA # [id number]. Donna Paulson, Ph.D., Nursing Aide, HLA Laboratory Lazaro Hernandez M.D., Ph.D., Lead Ruby On Rails Developer, HLA Laboratory Tammy Estevez, Ph.D., [place] Lead Ruby On Rails Developer, [facility] Clinical Laboratories Current methodology and interpretive comments last revised on 09/26/2017. Wayne Abraham MD LAB BLOOD ORDERABLES Final Resu lt Performing Organization Address [facility] Co de Phone Number HISTOTRAC * PSA screen (01/09/2024 11:10 AM CDT) [facility] PSA 0.82 < OR = 4.00 ng/mL [facility] Comment: The total PSA value from this assay system is standardized against the WHO standard. The test result will be approximately 20% lower when compared to the equimolar-standardized total PSA (Osman [place]). Comparison of serial PSA results should be [...] ORDERABLES Final Re sult Performing Organization Address [facility] Co de Phone Number QUEST [facility] [address] [place] [address] * Hepatitis C antibody Blood (05/30/2023 12:42 PM SECOND CHEF) [facility] Hep C Ab Nonreactive Nonreactive [facility] Comment:Antibodies to HCV no t detected. Does NOT exclude the possibility of recent exposure to HCV. Current interpretive data was last revised on 22 Blood 05/30/2023 12:4 2 PM SECOND CHEF 05/30/2023 1:22 PM SECOND CHEF Narrative [facility] - 05/30/2023 2:06 PM SECOND CHEF This lab is being obtained as part of a Kidney transplant evaluation, is time sensitive, and should only be drawn during the evaluation visit at [facility]. us Leta Rudolph MD LAB MICROBIOLOGY - GENERAL ORDERABLES Final Result [facility] [place] [address] * Colonoscopy (10/27/2022 10:35 AM CDT) Anatomical Region Laterality Modality Other Historical Provider ENDOSCOPY PROCEDURES Tori l Result from Last 3 Months or Most Recently Relevant to Health Maintenance
--- OUTSIDE RECORDS SUMMARY | 2024-12-23 05:25 | XMS_ITS ---
Author Organization [facility] [address] Address [address] [place] [address] Care Team Providers Care Oracle Developer Name Role Phone Libby Glass NP Primary Care Provider Chaparro Holcomb MD Unavailable [phone] Leny Mares RN Unavailable [phone] Transplant Episode Kidney Candidate [facility] ([place], [place]) [facility] Center waitlisted on 11/02/2023 Marked as Inactive on 06/25/2024 Reason: 07 - Temporarily Too Sick Kidney CoordinatorLeny Mares RN Email: N/A Scores Score Value Updated Exceptions/Reas ons CPRA Not available EPTS (Calc) 43 12/23/2024 [place] Organ Diagnosis Organ Primary Contributory Kidney Polycystic Kidneys Care Team Name Role Phone Fax Email Leny Mares RN Kidney Coordinator [phone] N/A Jyoti Cardoso Primary Director Employee Safety And Health N/A N/A N/A Chaparro Holcomb MD Referring Physician [phone] N/A Rhea Harrington Centrifugal Casting Machine Operator [phone] N/A N/A Events Pre-Transplant Referred: 01/11/2023 Evaluation began: 04/09/2023 Committee: 10/31/2023 UNOS qualified: 05/19/2022 Center waitlisted: 11/02/2023 Dialysis History Dialysis History Start End Type Comments Center 05/19/2022 In-center Hemodialysis TTS [facility] Dialysis Center Information Center Phone Fax Address [facility] [phone] [address] [facility] [address]
--- OUTSIDE RECORDS SUMMARY | 2024-12-23 05:25 | XMS_ITS | Referral Summary ---
Author Organization [facility] [address] [place] [address] 162 Address [address] [place] [address] Care Team Providers Care Plane Tender Name Role Phone Libby Glass NP Primary Care Provider [phone] Chaparro Holcomb MD Unavailable [phone] Leny Mares RN Unavailable Encounters Date Type Department Care Team Description 12/16/2024 Orders Only [facility] Medical Group Cardiology [address] [facility] [address] [place] [phone] Mita Major MD 2024 Telephone [facility] Cardiology [address] [facility] 8th [place] [address] [place] [address] Giuliana Grullon CPhT 12/12/2024 Telephone [facility] Medical [facility] Cardiology [address] [facility] [address] [place] [address] Mita Major MD 12/10/2024 Orders Only [facility] Health Information Management [address] [place] [address] Libby Glass NP 12/03/2024 10:00 AM CDT - 12/03/2024 11:59 PM CDT Hospital Encounter [facility] [address] [place] [address] ESRD (end stage renal disease) (HCC) Discharge Disposition: Discharge to home or self care 11/03/2024 10:00 AM CDT - 11/03/2024 11:59 PM CDT Hospital Encounter [facility] [address] [place] [address] ESRD (end stage renal disease) ([facility]) Discharge Disposition: Discharge to home or self care 10/17/2024 Telephone [facility] and [facility] Transplant Kidney [address] [facility] [address] Mailstop [id number] [place] [address] Leny Mares, TERRI 10/16/2024 Telephone [facility] Transplant Kidney [address] [facility] [address] Mailstop [id number] [place] [address] Leny Mares, TERRI 10/15/2024 10:00 AM CDT - 10/15/2024 11:59 PM CDT Hospital Encounter [address] [address] ESRD (end stage renal disease) ([facility]) Discharge Disposition: Discharge to home or self [...] next few days. Prescribed lidocaine patches at ar. Assessment & Plan (06/27/2024 4:28 PM RN MANAGER): Unclear etiology for chest pain. Initial workup [...] dc Assessment & Plan (06/27/2024 4:01 PM RN MANAGER): On home Bumex 2mg, nifedipine, Imdur, hydral [...] - renal c/s: iHD MWF, received inpt 3 pm - continue bumex 2mg daily, phoslo Assessment & Plan (06/27/2024 4:01 PM RN MANAGER): On schedule as outpatient - 06/26 iHD completed - Local Dialysis Center [facility] in [facility]. - Nephrology ESRD Team following Resolved [...] Tobacco: Never Tobacco Cessation:Counseling Given: Not Answered [facility] [employer] Answer Date Recorded In the past 12 months has [employer], gas, oil, or water [employer] threatened to shut off services in your [...] often do you attend chur ch or religion services? 1 to 4 times per year [...] any time in the past 12 m [facility], were you homeless or living in [...] on file Legal Sex Male 2:12 AM RN MANAGER Gender Identity Not on file Sexual Orientation [...] HEPATITIS C ANTIBODY Routine 05/30/2023 12:42 PM RN MANAGER End stage renal disease (HCC) COLONOSCOPY Routine [...] Anatomical Region Laterality Modality Other Libby Glass E BUSINESS SPECIALIST Final Result * HLA Antibody Screen by PRA or SAB per Schedule (Class I and Class II) (12/03/2024 10:00 AM CDT) Blood 12/03/2024 10:0 0 AM CDT Narrative HISTOTRAC - RN MANAGER Sample received in lab. PRA Screen ordered. Wayne Abraham MD LAB BLOOD ORDERABLES Final Resu lt Performing Organization Address City/[facility] Hospital/ZIP Co de Phone Number HISTOTRAC * [...] a method developed and validated by the [facility] HLA laboratory based on an FDA- approved IVD kit (LABScreen PRA, [employer], [place], [place]). Interpretive comments: The percentage of beads with MFI > 750 is reported, which indicates the percentage of donor population estimated to be incompatible with the patient tested. PRA > 0% is consistent with alloimmunization to HLA. Testing performed at the [facility] HLA Laboratory, [address] [place] [address], 5th floor, [place], [address]. IA # [id number]. Donna Paulson, Ph.D., Pediatric Orthodontist, HLA Laboratory Lazaro Hernandez M.D., Ph.D., Log Driver, HLA Laboratory Tammy Estevez, Ph.D., CLIA Log Driver, [facility] Clinical Laboratories Current methodology and interpretive comments last revised on 09/26/2017. Wayne Abraham MD LAB BLOOD ORDERABLES Final Resu lt Performing Organization Address City/[facility]/ZIP Co de Phone Number HISTOTRAC * HLA Antibody Screen by PRA or SAB per Schedule (Class I and Class II) (11/03/2024 10:00 AM CDT) Blood 11/03/2024 10:0 0 AM CDT Narrative HISTOTRAC - RN MANAGER Sample received in lab and stored. No testing performed at this time. Wayne Abraham MD LAB BLOOD ORDERABLES Final Resu lt Performing Organization Address [facility]/Va Hospital/[facility] de Phone Number HISTOTRAC * HLA Antibody Screen by PRA or SAB per Schedule (Class I and Class II) (10/15/2024 10:00 AM CDT) Blood 10/15/2024 10:0 0 AM CDT Narrative HISTOTRAC - RN MANAGER Sample received in lab. PRA Screen ordered. Wayne Abraham MD LAB BLOOD ORDERABLES Final Resu Performing Organization Address [facility] de Phone Number HISTOTRAC * HLA [...] a method developed and validated by the [facility] HLA laboratory based on an FDA- approved IVD kit (LABScreen PRA, [employer], [place], [place]). Interpretive comments: The percentage of beads with MFI > 750 is reported, which indicates the percentage of donor population estimated to be incompatible with the patient tested. PRA > 0% is consistent with alloimmunization to HLA. Testing performed at the [facility] HLA Laboratory, [facility], 5th floor, [place], [address]. CLIA # [id number]. Donna Paulson, Ph.D., Pediatric Orthodontist, HLA Laboratory Lazaro Hernandez M.D., Ph.D., Log Driver, HLA Laboratory Tammy Estevez, Ph.D., CLIA Log Driver, [facility] Clinical Laboratories Current methodology and interpretive comments last revised on 09/26/2017. Wayne Abraham MD LAB BLOOD ORDERABLES Final Resu lt Performing Organization Address City/[facility] Hospital/ZIP Co de Phone Number HISTOTRAC * PSA screen (01/09/2024 11:10 AM CDT) Pathologist [facility] PSA 0.82 < OR = 4.00 ng/mL [...] NP LAB BLOOD ORDERABLES Final Re sult [facility] [address] [place] [address] * Hepatitis C antibody Blood (05/30/2023 12:42 PM RN MANAGER) Hep C Ab Nonreactive Nonreactive GHASSAN MUELLER Comment:Antibodies to HCV no t detected. Does NOT exclude the possibility of recent exposure to HCV. Current interpretive data was last revised on 22 Blood 05/30/2023 12:4 2 PM RN MANAGER 05/30/2023 1:22 PM RN MANAGER Narrative GHASSAN [facility] - 05/30/2023 2:06 PM RN MANAGER This lab is being obtained as part of a Kidney transplant evaluation, is time sensitive, and should only be drawn during the evaluation visit at [facility] Lab. Leta Rudolph MD LAB MICROBIOLOGY - GENERAL ORDERABLES Final Result [facility] One [facility] [place] [address] * Colonoscopy (10/27/2022 10:35 AM CDT) Anatomical Region Laterality Modality Other Historical Provider ENDOSCOPY PROCEDURES Tori l Result from Last 3 Months or Most Recently Relevant to Health Maintenance Insurance [facility] MEDICARE ADVANTAGE [facility] [place] [address] [facility] [address] [place] [address] Advance Directives For more information, please contact: [phone] * Full Code (Latest Code Status on File) Date Activated Date Inactivated Comments 08/15/2024 7:16 PM 08/16/2024 4:50 PM * Full Code Date Activated Date Inactivated Comments 06/25/2024 1:35 AM 06/27/2024 10:47 PM * Full Code Date Activated Date Inactivated Comments 10/17/2023 10:40 AM 10/19/2023 5:30 PM Care Teams Plane Tender Relationship Specialty Start Date End Date Libby Glass E BUSINESS SPECIALIST [address] [facility] [address] [place] [address] PCP - General Internal Medicine 10/27/22 Chaparro Holcomb MD [address] [facility] [address] [place] [address] Referring Physician Nephrology 10/27/22 Leny Mares, RN [address] [facility] [address] [place] [address] Hand Shoes Sewer 02/15/23 [facility] Dentist 08/23/23
[2024-12-23 05:37] VITALS: BP 144/91; PULSE 83; RESP 12; TEMP 36.5; O2SAT 100
--- NOTE | 2024-12-23 05:50 | ECG_ITS ---
Test Date: 2024-12-23 06:27:52 Measurements Intervals [place] Rate: 79 P: 69 UT: 179 QRS: -17 QRSD: 96 T: 38 QT: 378 QTc: 436 Interpretive Statements SINUS RHYTHM POSSIBLE LEFT ATRIAL ENLARGEMENT [-0.1mV P-WAVE IN V1/V2] Compared to ECG 12/09/2024 23:42:14 No significant changes Electronically Signed On 12-23-2024 16:43:10 CDT by Sawyer Woods M.D.
--- OUTSIDE RECORDS SUMMARY | 2024-12-23 05:56 | XMS_ITS | Clinical Summary ---
Author Organization [facility] [employer] Address [address] [place] [address] Care Team Providers Care Guitar Teacher Name Role Phone John Acharya MD Primary Care Provider [phone] Source Comments [facility] [employer],non-owned Affiliates and Associated Physician Practices is amultiple site organization consisting of ambulatory clinics and hospital sitesin [place], [place], [place] and [place]. This disclosure is being madepursuant to the Care Everywhere program and may not contain all information available regarding this patient. Last updated 18.[facility] [employer] Allergies No known active allergies Medications * [...] on file Legal Sex Male 9:07 AM CANDLE POURER Gender Identity Not on file Sexual Orientation Not on file Last Filed Vital Signs Vital Sign Reading Time Taken Comments Blood Pressure 123/81 06/30/2024 2:15 PM CANDLE POURER Pulse 91 06/30/2024 2:15 PM CANDLE POURER Temperature 37.5 C (99.5 F) 06/30/2024 1:15 PM CANDLE POURER Respiratory Rate 20 06/30/2024 2:15 PM CANDLE POURER Oxygen Saturation 95% 06/30/2024 2:15 PM CANDLE POURER Inhaled Oxygen Concentration - - Weight 83.5 kg (184 lb) 06/30/2024 1:15 PM CANDLE POURER Height 185.4 cm (6' 1) 06/30/2024 1:15 PM CANDLE POURER Body Mass Index 24.28 06/30/2024 1:15 PM CANDLE POURER Plan of Treatment Upcoming Encounters Date Type Department Care Team (Late st Contact Info) Description 06/29/2025 2:15 PM CANDLE POURER Appointment [facility] Health Vascular Services [address] [facility], [address] [place] [address] [place] [address] [facility] [address] [place] [address] Health Maintenance Due Date Last [...] PANEL (CALCIUM TOTAL) STAT 08/08/2022 10:08 AM CANDLE POURER Preop examination from Last 3 Months or Most Recently Relevant to Health Maintenance Results * (ABNORMAL) BASIC METABOLIC PANEL (CALCIUM TOTAL) (08/08/2022 10:08 AM CANDLE POURER) Glucose 97 70 - 105 mg/dL 08/08/2022 10:33 AM CANDLE POURER [facility] Sodium 137 136 - 145 mmol/L 08/08/2022 10:33 AM CANDLE POURER [facility] Potassium 4.5 3.5 - 5.1 mmol/L 08/08/2022 10:33 AM [facility] Chloride 99 98 - 107 mmol/L 08/08/2022 10:33 AM [facility] CO2 25 23 - 31 mmol/L 08/08/2022 10:33 AM [facility] Calcium 8.4 8.4 - 10.4 mg/dL 08/08/2022 10:33 AM [facility] Anion Gap 13 8 - 18 mmol/L 08/08/2022 10:33 AM [facility] BUN 54(H) 8.4 - 25.7 mg/dL 08/08/2022 10:33 AM [facility] Creatinine 11.06(H) 0.72 - 1.25 mg/dL 08/08/2022 10:33 AM [facility] eGFR by CKD-EPI 5(L) >=90 mL/min/1.7 3 m2 08/08/2022 10:33 AM [facility] Blood BLOOD SPECIMEN / Unknown Venipuncture / Unknown 08/08/2022 10:08 AM CANDLE POURER 08/08/2022 10:16 AM [facility] us Suzi Allen DO LAB - CHEMISTRY ORDERABLES Tori quintana Result [facility] [address] [place] [address] from Last 3 Months or Most Recently Relevant to Health Maintenance Insurance MEDICAID [place] UHC MANAGED MEDICARE ADV Care Teams Guitar Teacher Relationship Specialty Start Date End Date John Acharya MD [address] [address] PCP - General 06/19/22
--- OUTSIDE RECORDS SUMMARY | 2024-12-23 05:57 | XMS_ITS ---
Author Organization [facility] [address] Address [address] [place] [address] Care Team Providers Care Progress Developer Name Role Phone Libby Glass NP Primary Care Provider Chaparro Holcomb MD Unavailable [phone] Leny Mares RN Unavailable [phone] Transplant Episode Kidney Candidate [facility] ([place], [place]) [facility] Center waitlisted on 11/02/2023 Marked as Inactive on 06/25/2024 Reason: 07 - Temporarily Too Sick Kidney CoordinatorLeny Mares RN Email: N/A Scores Score Value Updated Exceptions/Reas ons CPRA Not available EPTS (Calc) 43 12/23/2024 [place] Organ Diagnosis Organ Primary Contributory Kidney Polycystic Kidneys Care Team Name Role Phone Fax Email Leny Mares RN Kidney Coordinator [phone] N/A Jyoti Cardoso Primary Home Fire Alarm Installer N/A N/A N/A Chaparro Holcomb MD Referring Physician [phone] N/A Rhea Harrington Puff Iron Operator [phone] N/A N/A Events Pre-Transplant Referred: 01/11/2023 Evaluation began: 04/09/2023 Committee: 10/31/2023 UNOS qualified: 05/19/2022 Center waitlisted: 11/02/2023 Dialysis History Dialysis History Start End Type Comments Center 05/19/2022 In-center Hemodialysis TTS SH [facility] Dialysis Center Information Center Phone Fax Address [facility] [phone] [address] [facility] [address]
--- OUTSIDE RECORDS SUMMARY | 2024-12-23 05:58 | XMS_ITS | Referral Summary ---
Author Organization [facility] [address] [place] [address] 162 Address [address] [place] [address] Care Team Providers Care Head Cd Reactor Operator Name Role Phone Libby Glass NP Primary Care Provider Chaparro Holcomb MD Unavailable [phone] Leny Mares RN Unavailable Encounters Date Type Department Care Team Description 12/16/2024 Orders Only [facility] Medical Group Cardiology [address] [facility] [address] [place] [address] Mita Major MD 2024 Telephone [facility] Cardiology [address] [facility] 8th [place] [address] [place] [address] Giuliana Grullon CPhT 12/12/2024 Telephone [facility] Medical [facility] Cardiology [address] [facility] [address] [place] [address] Mita Major MD 12/10/2024 Orders Only [facility] Health Information Management [address] [place] [address] Libby Glass NP 12/03/2024 10:00 AM CDT - 12/03/2024 11:59 PM CDT Hospital Encounter [facility] [address] [place] [address] ESRD (end stage renal disease) (HCC) Discharge Disposition: Discharge to home or self care 11/03/2024 10:00 AM CDT - 11/03/2024 11:59 PM CDT Hospital Encounter [facility] [address] [place] [address] ESRD (end stage renal disease) ([facility]) Discharge Disposition: Discharge to home or self care 10/17/2024 Telephone [facility] and Transplant Kidney [address] [facility] [address] Mailstop [phone] [place] [address] Leny Mares, TERRI 10/16/2024 Telephone [facility] Transplant Kidney [address] [facility] [address] Mailstop [phone] [place] [address] Leny Mares, TERRI 10/15/2024 10:00 AM CDT - 10/15/2024 11:59 PM CDT Hospital Encounter [address] [address] ESRD (end stage renal disease) ([facility]) Discharge Disposition: Discharge to home or [...] next few days. Prescribed lidocaine patches at ut. Assessment & Plan (06/27/2024 4:28 PM DRAMATIC ARTS HISTORIAN): Unclear etiology for chest pain. Initial workup [...] dc Assessment & Plan (06/27/2024 4:01 PM DRAMATIC ARTS HISTORIAN): On home Bumex 2mg, nifedipine, Imdur, hydral [...] phoslo Assessment & Plan (06/27/2024 4:01 PM DRAMATIC ARTS HISTORIAN): On schedule as outpatient - 06/26 iHD completed - Local Dialysis Center [facility] in [facility]. - Nephrology ESRD Team following Resolved Problems [...] Tobacco: Never Tobacco Cessation:Counseling Given: Not Answered [facility] [employer] Answer Date Recorded In the past 12 months has [employer], gas, oil, or water [employer] threatened to shut off services in your [...] often do you attend chur ch or methodist services? 1 to 4 times per year 06/13/2024 Do you belong to any clubs o r organizations such as denominational groups, unions, fraternal or athletic groups, or [...] place to sleep or slept in a long term (including now)? No 06/12/2023 Housing Stability Vital Sign Answer Nikolai e Recorded In the last 12 months, was t here a time when you were not able to pay the mortgage or rent on time? No 06/13/2024 In the past 12 months, how m any times have you moved where you were living? 1 06/13/2024 At any time in the past 12 m [facility], were you homeless or living in a long term (including now)? No 06/13/2024 Personal Safety Answer Date Recorded Have you ever been in or are you currently in a harmful physical or emotional relationship or is someone making you feel afraid or unsafe? Denies 08/15/2024 Sex and Gender Information Value Date Recorded Sex Assigned at Not on file Legal Sex Male 2:12 AM DRAMATIC ARTS HISTORIAN Gender Identity Not on file Sexual Orientation [...] HEPATITIS C ANTIBODY Routine 05/30/2023 12:42 PM DRAMATIC ARTS HISTORIAN End stage renal disease (HCC) COLONOSCOPY Routine [...] Anatomical Region Laterality Modality Other Libby Glass PEDIATRICS HOSPITALIST Final Result * HLA Antibody Screen by PRA or SAB per Schedule (Class I and Class II) (12/03/2024 10:00 AM CDT) Blood 12/03/2024 10:0 0 AM CDT Narrative HISTOTRAC - DRAMATIC ARTS HISTORIAN Sample received in lab. PRA Screen ordered. Wayne Abraham MD LAB BLOOD ORDERABLES Final Resu lt Performing Organization Address City/[facility]/ZIP Co de Phone Number HISTOTRAC * [...] a method developed and validated by the [facility] HLA laboratory based on an FDA- approved IVD kit (LABScreen PRA, [employer], [place], [place]). Interpretive comments: The percentage of beads with MFI > 750 is reported, which indicates the percentage of donor population estimated to be incompatible with the patient tested. PRA > 0% is consistent with alloimmunization to HLA. Testing performed at the HLA Laboratory, [address] [place] [address], 5th floor, [place], [address]. IA # [id number]. Donna Paulson, Ph.D., Electronic Funds Transfer Coordinator, HLA Laboratory Lazaro Hernandez M.D., Ph.D., Mail Order Clerk, HLA Laboratory Tammy Estevez, Ph.D., CLIA Mail Order Clerk, Clinical Laboratories Current methodology and interpretive comments last revised on 09/26/2017. Wayne Abraham MD LAB BLOOD ORDERABLES Final Resu lt Performing Organization Address City/[facility]/ZIP Co de Phone Number HISTOTRAC * HLA Antibody Screen by PRA or SAB per Schedule (Class I and Class II) (11/03/2024 10:00 AM CDT) Blood 11/03/2024 10:0 0 AM CDT Narrative HISTOTRAC - DRAMATIC ARTS HISTORIAN Sample received in lab and stored. No testing performed at this time. Wayne Abraham MD LAB BLOOD ORDERABLES Final Resu lt Performing Organization Address [facility] de Phone Number HISTOTRAC * HLA Antibody Screen by PRA or SAB per Schedule (Class I and Class II) (10/15/2024 10:00 AM CDT) Blood 10/15/2024 10:0 0 AM CDT Narrative HISTOTRAC - DRAMATIC ARTS HISTORIAN Sample received in lab. PRA Screen ordered. Wayne Abraham MD LAB BLOOD ORDERABLES Final Resu Performing Organization Address [facility] de Phone Number HISTOTRAC * HLA Antibody [...] a method developed and validated by the [facility] HLA laboratory based on an FDA- approved IVD kit (LABScreen PRA, [employer], [place], [place]). Interpretive comments: The percentage of beads with MFI > 750 is reported, which indicates the percentage of donor population estimated to be incompatible with the patient tested. PRA > 0% is consistent with alloimmunization to HLA. Testing performed at the HLA Laboratory, [facility], 5th floor, [place], [address]. CLIA # [id number]. Donna Paulson, Ph.D., Electronic Funds Transfer Coordinator, HLA Laboratory Lazaro Hernandez M.D., Ph.D., Mail Order Clerk, HLA Laboratory Tammy Estevez, Ph.D., CLIA Mail Order Clerk, Clinical Laboratories Current methodology and interpretive comments last revised on 09/26/2017. Wayne Abraham MD LAB BLOOD ORDERABLES Final Resu lt Performing Organization Address City/[facility]/ZIP Co de Phone Number HISTOTRAC * PSA screen (01/09/2024 11:10 AM CDT) Pathologist [facility] PSA 0.82 < OR = 4.00 ng/mL [...] BLOOD ORDERABLES Final Re sult [facility] [address] [place] [address] * Hepatitis C antibody Blood (05/30/2023 12:42 PM DRAMATIC ARTS HISTORIAN) Hep C Ab Nonreactive Nonreactive GHASSAN MUELLER Comment:Antibodies to HCV no t detected. Does NOT exclude the possibility of recent exposure to HCV. Current interpretive data was last revised on 22 Blood 05/30/2023 12:4 2 PM DRAMATIC ARTS HISTORIAN 05/30/2023 1:22 PM DRAMATIC ARTS HISTORIAN Narrative GHASSAN [facility] - 05/30/2023 2:06 PM DRAMATIC ARTS HISTORIAN This lab is being obtained as part of a Kidney transplant evaluation, is time sensitive, and should only be drawn during the evaluation visit at [facility] Lab. Leta Rudolph MD LAB MICROBIOLOGY - GENERAL ORDERABLES Final Result [facility] One [facility] Department [place] [address] * Colonoscopy (10/27/2022 10:35 AM CDT) Anatomical Region Laterality Modality Other Historical Provider ENDOSCOPY PROCEDURES Tori l Result from Last 3 Months or Most Recently Relevant to Health Maintenance Insurance [facility] MEDICARE ADVANTAGE [facility] [address] [facility] [place] [address] [place] [address] Advance Directives For more information, please contact: [phone] * Full Code (Latest Code Status on File) Date Activated Date Inactivated Comments 08/15/2024 7:16 PM 08/16/2024 4:50 PM * Full Code Date Activated Date Inactivated Comments 06/25/2024 1:35 AM 06/27/2024 10:47 PM * Full Code Date Activated Date Inactivated Comments 10/17/2023 10:40 AM 10/19/2023 5:30 PM Care Teams Head Cd Reactor Operator Relationship Specialty Start Date End Date Libby Glass PEDIATRICS HOSPITALIST [address] [facility] [address] [place] [address] PCP - General Internal Medicine 10/27/22 Chaparro Holcomb MD [address] [facility] [address] [place] [address] Referring Physician Nephrology 10/27/22 Leny Mares, RN [address] [facility] [address] [place] [address] Managed Care Director 02/15/23 [facility] Dentist 08/23/23
--- OUTSIDE RECORDS SUMMARY | 2024-12-23 05:58 | XMS_ITS | Encounter Summary ---
Author Organization [facility] Address [address] [place] [address] Care Team Providers Care Marine Engineering Professor Name Role Phone Libby Glass NP Primary Care Provider [phone] Chaparro Holcomb MD Unavailable [phone] Leny Mares RN Unavailable Encounter Details Date Type Department Care Team (Late st Contact Info) Description 07/11/2024 Documentation [facility] [address] [place] [address] Cheyanne Combs RN Social History Tobacco Use Types Packs/Day Years Used Date Smoking Tobacco: Never Smokeless Tobacco: Never C Utilities Answer Date Recorded In the past 12 months has [employer], gas, oil, or water company threatened [...] often do you attend chur ch or sabianist services? 1 to 4 times per year 06/13/2024 Do you belong to any clubs o r organizations such as druze groups, unions, fraternal or athletic groups, or [...] place to sleep or slept in a retirement (including now)? No 06/12/2023 Housing Stability Vital Sign Answer Nikolai e Recorded In the last 12 months, was t here a time when you were not able to pay the mortgage or rent on time? No 06/13/2024 In the past 12 months, how m any times have you moved where you were living? 1 06/13/2024 At any time in the past 12 m [facility] were you homeless or living in a retirement (including now)? No 06/13/2024 Personal Safety Answer Date Recorded Have you ever been in or are you currently in a harmful physical or emotional relationship or is someone making you feel afraid or unsafe? Denies 07/11/2024 Sex and Gender Information Value Date Recorded Sex Assigned at Not on file Legal Sex Male 2:12 AM SHRIMP POND LABORER Gender Identity Not on file Sexual Orientation Not on file documented as of this encounter Plan of Treatment Not on file documented as of this encounter Visit Diagnoses Not on filedocumented in this encounter Additional Health Concerns Infection Onset Date Last Indicated Resolved Time COVID: Suspected 08/15/2024 08/15/2024 08/15/2024 3:49 PM CDT documented as of this encounter Care Teams Marine Engineering Professor Relationship Specialty Start Date End Date Libby Glass NP [address] [facility] [address] [place] [address] PCP - General Internal Medicine 10/27/22 Chaparro Holcomb MD [address] [facility] [address] [place] [address] Referring Physician Nephrology 10/27/22 Leny Mares RN [address] [facility] [address] [place] [address] Sales Porter 02/15/23 [facility] 08/23/23 documented as of this encounter
--- OUTSIDE RECORDS SUMMARY | 2024-12-23 05:58 | XMS_ITS | Clinical Summary ---
Author Organization [facility] [address] Address [address] [place] [address] Care Team Providers Care Fruit Buying Grader Name Role Phone Libby Glass NP Primary Care Provider [phone] Chaparro Holcomb MD Unavailable [phone] Leny Mares RN Unavailable Allergies No [...] next few days. [place] Assessment & Plan (06/27/2024 4:28 PM OCEAN CLAM BOAT CAPTAIN): Unclear etiology for chest pain. Initial workup [...] dc Assessment & Plan (06/27/2024 4:01 PM OCEAN CLAM BOAT CAPTAIN): On home Bumex 2mg, nifedipine, Imdur, hydral [...] phoslo Assessment & Plan (06/27/2024 4:01 PM OCEAN CLAM BOAT CAPTAIN): On schedule as outpatient - 06/26 iHD completed - Local Dialysis Center [facility] in [facility]. - Nephrology ESRD Team following Resolved Problems Problem Noted Date Diagnosed Date Resolved Date BMI 25.0-25.9,adult 02/28/2023 07/01/19 25 Assessment & Plan (03/21/2024 1:04 PM CDT): Weight/BMI is in healthy range. Continue healthy lifestyle to maintain. Assessment & Plan (01/07/2024 1:34 PM CDT): Weight/BMI is in healthy range. Continue healthy lifestyle to maintain. Encounters Date Type Department Care Team Description 12/16/2024 Orders Only [facility] Cardiology [address] [place] [address] Mita Major MD 2024 Telephone [facility] Cardiology [address] [facility] 8th [place] [address] [place] [address] Giuliana Grullon CPhT 12/12/2024 Telephone [facility] Medical [facility] Cardiology [address] [place] [address] Mita Major MD 12/10/2024 Orders Only [facility] Health Information Management [address] [place] [address] Libby Glass NP 12/03/2024 10:00 AM CDT - 12/03/2024 11:59 PM CDT Hospital Encounter [address] [address] ESRD (end stage renal disease) (HCC) Discharge Disposition: Discharge to home or self care 11/03/2024 10:00 AM CDT - 11/03/2024 11:59 PM CDT Hospital Encounter [address] [address] ESRD (end stage renal disease) (HCC) Discharge Disposition: Discharge to home or self care 10/17/2024 Telephone [facility] [address] [facility] [phone] [place] [address] Leny Mares, TERRI 10/16/2024 Telephone [facility] [address] [facility] [phone] [place] [address] Leny Mares, TERRI 10/15/2024 10:00 AM CDT - 10/15/2024 11:59 PM CDT Hospital Encounter [address] [address] ESRD (end stage renal disease) (HCC) Discharge [...] Tobacco: Never Tobacco Cessation:Counseling Given: Not Answered [facility] Utilities Answer Date Recorded In the past 12 months has e [employer], gas, oil, or water [employer] threatened to shut off services in your [...] often do you attend chur ch or latter-day services? 1 to 4 times [...] place to sleep or slept in a care home (including now)? No 06/12/2023 Housing Stability Vital Sign Answer Nikolai e Recorded In the last 12 months, was t here a time when you were not able to pay the mortgage or rent on time? No 06/13/2024 In the past 12 months, how m any times have you moved where you were living? 1 06/13/2024 At any time in the past 12 m [facility], were you homeless or living in a care home (including now)? No 06/13/2024 Personal Safety Answer Date Recorded Have you ever been in or are you currently in a harmful physical or emotional relationship or is someone making you feel afraid or unsafe? Denies 08/15/2024 Sex and Gender Information Value Date Recorded Sex Assigned at Not on file Legal Sex Male 2:12 AM OCEAN CLAM BOAT CAPTAIN Gender Identity Not on file Sexual Orientation [...] HEPATITIS C ANTIBODY Routine 05/30/2023 12:42 PM OCEAN CLAM BOAT CAPTAIN End stage renal disease (HCC) COLONOSCOPY Routine [...] Anatomical Region Laterality Modality Other Libby Glass START UP SPECIALIST Final Result * HLA Antibody Screen by PRA or SAB per Schedule (Class I and Class II) (12/03/2024 10:00 AM CDT) Blood 12/03/2024 10:0 0 AM CDT Narrative HISTOTRAC - OCEAN CLAM BOAT CAPTAIN Sample received in lab. PRA Screen ordered. Result [facility] Wayne Abraham MD LAB BLOOD ORDERABLES Final [...] a method developed and validated by the [facility] HLA laboratory based on an FDA- approved IVD kit ([employer] Networkcreen PRA, [place], [place], [place]). Interpretive comments: The percentage of beads with MFI > 750 is reported, which indicates the percentage of donor population estimated to be incompatible with the patient tested. PRA > 0% is consistent with alloimmunization to HLA. Testing performed at the [facility] HLA Laboratory, [address] [place] [address], 5th floor, [place], [address]. [facility] # [id number]. Donna Paulson, Ph.D., Chief General Pediatric Clinic, HLA Laboratory Lazaro Hernandez M.D., Ph.D., Cd Reactor Operator, HLA Laboratory Tammy Estevez, Ph.D., CLIA Cd Reactor Operator, [facility] Clinical Laboratories Current methodology and interpretive comments last revised on 09/26/2017. us Wayne Abraham MD LAB BLOOD ORDERABLES Final Resu lt HISTOTRAC * HLA Antibody Screen by PRA or SAB per Schedule (Class I and Class II) (11/03/2024 10:00 AM CDT) Blood 11/03/2024 10:0 0 AM CDT Narrative HISTOTRAC - OCEAN CLAM BOAT CAPTAIN Sample received in lab and stored. No testing performed at this time. us Wayne Abraham MD LAB BLOOD ORDERABLES Final Resu lt HISTOTRAC * HLA Antibody Screen by PRA or SAB per Schedule (Class I and Class II) (10/15/2024 10:00 AM CDT) Blood 10/15/2024 10:0 0 AM CDT Narrative HISTOTRAC - OCEAN CLAM BOAT CAPTAIN Sample received in lab. PRA Screen ordered. [...] a method developed and validated by the [facility] HLA laboratory based on an FDA- approved IVD kit (LABScreen PRA, [employer], [place], [place]). Interpretive comments: The percentage of beads with MFI > 750 is reported, which indicates the percentage of donor population estimated to be incompatible with the patient tested. PRA > 0% is consistent with alloimmunization to HLA. Testing performed at the [facility] HLA Laboratory, [address] [place] [address], 5th floor, [place], [address]. CLIA # [id number]. Donna Paulson, Ph.D., Chief General Pediatric Clinic, HLA Laboratory Lazaro Hernandez M.D., Ph.D., Cd Reactor Operator, HLA Laboratory Tammy Estevez, Ph.D., ABIGAIL Cd Reactor Operator, [facility] Clinical Laboratories Current methodology and interpretive comments last revised on 09/26/2017. Wayne Abraham MD LAB BLOOD ORDERABLES Final Resu lt Performing Organization Address [facility] Co de Phone Number HISTOTR[facility] * PSA screen (01/09/2024 11:10 AM CDT) PSA 0.82 < OR = 4.00 ng/mL [facility] Comment: The total PSA value from this assay system is standardized against the WHO standard. The test result will be approximately 20% lower when compared to the equimolar-standardized total PSA (Osman Houston). Comparison of serial PSA results should be interpreted with this fact in mind. This test was performed using the Siemens chemiluminescent method. Values obtained from different assay methods cannot be used interchangeably. PSA levels, regardless of value, should not be interpreted as absolute evidence of the presence or absence of disease. 01/09/2024 11:1 0 AM CDT 01/09/2024 11:11 AM CDT Libby Glass START UP SPECIALIST LAB BLOOD ORDERABLES Final Re sult Performing Organization Address [facility] Co de Phone Number QUEST [facility] [address] [place] [address] * Hepatitis C antibody Blood (05/30/2023 12:42 PM OCEAN CLAM BOAT CAPTAIN) Hep C Ab Nonreactive Nonreactive [facility] Comment:Antibodies to HCV no t detected. Does NOT exclude the possibility of recent exposure to HCV. Current interpretive data was last revised on 22 Blood 05/30/2023 12:4 2 PM OCEAN CLAM BOAT CAPTAIN 05/30/2023 1:22 PM OCEAN CLAM BOAT CAPTAIN Narrative [facility] - 05/30/2023 2:06 PM OCEAN CLAM BOAT CAPTAIN This lab is being obtained as part of a Kidney transplant evaluation, is time sensitive, and should only be drawn during the evaluation visit at [facility] Lab. Leta Rudolph MD LAB MICROBIOLOGY - GENERAL ORDERABLES Final Result [facility] One [facility] [place] [address] * Colonoscopy (10/27/2022 10:35 AM CDT) Anatomical Region Laterality Modality Other Historical Provider ENDOSCOPY PROCEDURES Tori l Result from Last 3 Months or Most Recently Relevant to Health Maintenance Insurance IDPA [facility] MEDICARE ADVANTAGE [facility] MEDICARE ADVANTAGE [facility] MEDICARE ADVANTAGE IDPA Advance Directives For more information, please contact: [phone] * Full Code (Latest Code Status on File) Date Activated Date Inactivated Comments 08/15/2024 7:16 PM 08/16/2024 4:50 PM * Full Code Date Activated Date Inactivated Comments 06/25/2024 1:35 AM 06/27/2024 10:47 PM * Full Code Date Activated Date Inactivated Comments 10/17/2023 10:40 AM 10/19/2023 5:30 PM Care Teams Fruit Buying Grader Relationship Specialty Start Date End Date Faires, Libby M., START UP SPECIALIST [address] [facility] [address] [place] [address] PCP - General Internal Medicine 10/27/22 Chaparro Holcomb MD [address] [facility] [address] [place] [address] Referring Physician Nephrology 10/27/22 Leny Mares, RN [address] [facility] [address] [place], [place] [id number] Machine Cementer And Folder 02/15/23 Dental [facility] Dentist 08/23/23
--- OUTSIDE RECORDS SUMMARY | 2024-12-23 05:58 | XMS_ITS ---
Author Organization [facility] [address] Address [address] [place] [address] Care Team Providers Care Coating Operator Name Role Phone Libby Glass NP Primary Care Provider [phone] Chaparro Holcomb MD Unavailable [phone] Leny Mares RN Unavailable [phone] Dialysis Access Sites Type Status Location Placement [...] HEPATITIS C ANTIBODY Routine 05/30/2023 12:42 PM ACURA SALES CONSULTANT End stage renal disease (HCC) COLONOSCOPY [...] next few days. [place] Assessment & Plan (06/27/2024 4:28 PM ACURA SALES CONSULTANT): Unclear etiology for chest pain. Initial [...] dc Assessment & Plan (06/27/2024 4:01 PM ACURA SALES CONSULTANT): On home Bumex 2mg, nifedipine, Imdur, [...] phoslo Assessment & Plan (06/27/2024 4:01 PM ACURA SALES CONSULTANT): On schedule as outpatient - 06/26 iHD completed - Local Dialysis Center [facility] in [facility]. - Nephrology ESRD Team following Immunizations Immunization Administration Dates Next Due Hep B Vaccine 11/01/2023, 3,08/25/2022, 3 Influenza, Unspecified 03/21/2024,2022,06/04/2022(Deferred: Patient Refused),03/18/2022 PPD TEST 10/09/2023, 3,06/21/2022, 2 Pneumococcal Polysaccharide PPV23 11/14/2022 Social History Tobacco Use Types Packs/Day Years Used Date Smoking Tobacco: Never Smokeless Tobacco: Never Tobacco Cessation:Counseling Given: Not Answered [facility] Utilities Answer Date Recorded In the past 12 months has e [employer], gas, oil, or water [employer] threatened to shut off services in your [...] often do you attend chur ch or cheondoism services? 1 to 4 times per year 06/13/2024 Do you belong to any clubs o r organizations such as scientology groups, unions, fraternal or athletic groups, or [...] any time in the past 12 m [facility], were you homeless or [...] on file Legal Sex Male 2:12 AM ACURA SALES CONSULTANT Gender Identity Not on file Sexual [...] Anatomical Region Laterality Modality Other Libby Glass VACCINE SPECIALIST Final Result * HLA Antibody Screen by PRA or SAB per Schedule (Class I and Class II) (12/03/2024 10:00 AM CDT) Blood 12/03/2024 10:0 0 AM CDT Narrative HISTOTRAC - ACURA SALES CONSULTANT Sample received in lab. PRA Screen [...] method developed and validated by the [facility] HLA laboratory based on an FDA- approved IVD kit ([employer]creen PRA, [employer], [place], [place]). Interpretive comments: The percentage of beads with MFI > 750 is reported, which indicates the percentage of donor population estimated to be incompatible with the patient tested. PRA > 0% is consistent with alloimmunization to HLA. Testing performed at the [facility] HLA Laboratory, [address] [place] [address], 5th floor, [place], [address]. [facility] # [id number]. Donna Paulson, Ph.D., Galley Cook, HLA Laboratory Lazaro Hernandez M.D., Ph.D., Online Merchandiser, HLA Laboratory Tammy Estevez, Ph.D., CLIA Online Merchandiser, [facility] Clinical Laboratories Current methodology and interpretive comments last revised on 09/26/2017. us Wayne Abraham MD LAB BLOOD ORDERABLES Final Resu lt HISTOTRAC * HLA Antibody Screen by PRA or SAB per Schedule (Class I and Class II) (11/03/2024 10:00 AM CDT) Blood 11/03/2024 10:0 0 AM CDT Narrative HISTOTRAC - ACURA SALES CONSULTANT Sample received in lab and stored. No testing performed at this time. Wayne Abraham MD LAB BLOOD ORDERABLES Final Resu lt HISTOTRAC * HLA Antibody Screen by PRA or SAB per Schedule (Class I and Class II) (10/15/2024 10:00 AM CDT) Blood 10/15/2024 10:0 0 AM CDT Narrative HISTOTRAC - ACURA SALES CONSULTANT Sample received in lab. PRA Screen [...] method developed and validated by the [facility] HLA laboratory based on an FDA- approved IVD kit (LABScreen PRA, [employer], [place], [place]). Interpretive comments: The percentage of beads with MFI > 750 is reported, which indicates the percentage of donor population estimated to be incompatible with the patient tested. PRA > 0% is consistent with alloimmunization to HLA. Testing performed at the [facility] HLA Laboratory, [address] [place] [address], 5th floor, [place], [address]. CLIA # [id number]. Donna Paulson, Ph.D., Galley Cook, HLA Laboratory Lazaro Hernandez M.D., Ph.D., Online Merchandiser, HLA Laboratory Tammy Estevez, Ph.D., [place] Online Merchandiser, [facility] Clinical Laboratories Current methodology and interpretive comments last revised on 09/26/2017. Wayne Abraham MD LAB BLOOD ORDERABLES Final Resu lt Performing Organization Address [facility] Co de Phone Number HISTOTRAC * PSA screen (01/09/2024 11:10 AM CDT) [facility] PSA 0.82 < OR = 4.00 [...] Re sult Performing Organization Address [facility] Co de Phone Number QUEST [facility] [address] [place] [address] * Hepatitis C antibody Blood (05/30/2023 12:42 PM ACURA SALES CONSULTANT) [facility] Hep C Ab Nonreactive Nonreactive [facility] Comment:Antibodies to HCV no t detected. Does NOT exclude the possibility of recent exposure to HCV. Current interpretive data was last revised on 22 Blood 05/30/2023 12:4 2 PM ACURA SALES CONSULTANT 05/30/2023 1:22 PM ACURA SALES CONSULTANT Narrative [facility] - 05/30/2023 2:06 PM ACURA SALES CONSULTANT This lab is being obtained as part of a Kidney transplant evaluation, is time sensitive, and should only be drawn during the evaluation visit at [facility] Lab. us Leta Rudolph MD LAB MICROBIOLOGY - GENERAL ORDERABLES Final Result [facility] Department [place] [address] * Colonoscopy (10/27/2022 10:35 AM CDT) Anatomical Region Laterality Modality Other Historical Provider ENDOSCOPY PROCEDURES Tori l Result from Last 3 Months or Most Recently Relevant to Health Maintenance
[2024-12-23 06:08] LABS: Hematocrit 30.5 % (42.0-52.0); Hemoglobin 9.9 g/dL (14.0-18.0); Immature Granulocyte Percent A 0.2 % (0-0.5); Lymphocytes Absolute Auto 0.95 K/mm3 (0.9-3.2); Mean Corpuscular HGB Conc 32.5 g/dl (32-36); Mean Corpuscular Hemoglobin 29.7 pg (26-34); Mean Corpuscular Volume 91.6 fl (80-100); Nucleated Red Blood Cells Absolute Auto 0.000 K/mm3 (0.0-0.012); Nucleated Red Blood Cells Perc 0.0 % (0.0-0.2); Platelet Count Result 241 k/mm3 (150-375); Red Blood Count 3.33 M/mm3 (4.6-6.20); White Blood Count 4.8 K/mm3 (4.5-10.0)
--- NOTE | 2024-12-23 06:09 | ED.EXTPRO ---
HPI - Extremity Problem General Chief complaint: Extremity Problem,Nontraumatic <Grant Lake MD - Last Filed: 12/24/24 06:59> Stated complaint: shooting pain in left arm, dialysis pt. <Grant Lake MD - Last Filed: 12/24/24 06:59> Time Seen by Provider: 12/23/24 05:26 <Grant Lake MD - Last Filed: 12/24/24 06:59> History of Present Illness HPI Narrative: 59-year-old male with a history of end-stage renal disease on hemodialysis, CHF, hypertension, anemia. Presents to the emergency department with left arm pain around his fistula site as well as some enlarging of the AV fistula there. He had dialysis early 6:00 a.m. last morning prior to discharge from hospital. He was admitted ever since the 8th of this month for fluid overload, heart failure, anemia. He underwent multiple evaluations including CT scans of the chest abdomen pelvis and CTA of the chest without any acute findings. Patient was dialyzed throughout the encounters and improved. He was discharged yesterday to home. He states that almost an hour after getting home he started experiencing sharp pains in his left fistula site and felt like the pseudoaneurysms or the AV fistula site itself appears slightly larger. No redness or overlying erythema. No complications during the dialysis sessions he has been receiving according to the patient. He denies any chest discomfort or shortness a breath. No abdominal pain, back pain, fever, chills. No trauma or injury. He states that the pain is sharp and radiating from the cannulation sites up towards his shoulder associated with some paresthesias. No strength deficits or sensory loss otherwise. No neck pain or neck stiffness. <Grant Lake MD - Last Filed: 12/24/24 06:59> Related Data Home medications: Home Medications ?Medication ?Instructions ?Recorded ?Confirmed ?Last Taken ?Type amino acids-protein hydrolysate 16 30 ml PO DAILY 12/10/24 12/10/24 Unknown History gram-100 kcal/30 mL oral liquid (Liquacel) cholecalciferol (vitamin D3) 250 250 mcg PO DAILY 12/10/24 12/10/24 Unknown History mcg (10,000 unit) capsule isosorbide mononitrate 30 mg 30 mg PO TID 12/10/24 12/10/24 Unknown History tablet,extended release 24 hr omega 0-vfk-mhr-fish oil 900 1 cap PO DAILY 12/10/24 12/10/24 Unknown History mg-1,400 mg capsule,delayed release <Grant Lake MD - Last Filed: 12/24/24 06:59> Allergies/Adverse reactions: Allergies Allergy/AdvReac Type Severity Reaction Status Date / Time No Known Allergies Allergy Verified 12/23/24 06:21 <Grant Lake MD - Last Filed: 12/24/24 06:59> Review of Systems Review of Systems: As reviewed above in HPI <Grant Lake MD - Last Filed: 12/24/24 06:59> PMFSH Past Medical History Medical History: Medical History Cardiomyopathy Acute systolic heart failure Acute diastolic CHF (congestive heart failure) Anemia of chronic disease Flash pulmonary edema Adult polycystic kidney disease <Grant Lake MD - Last Filed: 12/24/24 06:59> Surgical History Surgical History: Surgical History No significant past surgical history <Grant Lake MD - Last Filed: 12/24/24 06:59> Family History Family History: Family History Sibling Heart disease Fraternal twin brother had CABG X4. History of quadruple bypass Sibling Cancer Sibling ESRD on dialysis Mother Old age of old age Cerebrovascular accident Father Heart disease around 60 y.o. of uncertain type of heart disease <Grant Lake MD - Last Filed: 12/24/24 06:59> Social History Social History: Social History Social History: Negative for alcohol cigarettes or tobacco. 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 His brother Gavino romero is the poa. He has One child who is an adult daughter. He is . Code status full code Smoking status: Never smoker Second hand tobacco smoke exposure: No Alcohol intake: never Substance use: never Substance use type: does not use Do You Feel Safe in your Home?: Yes Lack of Transportation: YES Lack of Food: Never True Current Housing: I Have Housing Concerned About Future Housing: No Difficulty Paying Gas/Electric Bills: No Difficulty Paying for Meds: No Currently Unemployed: No Education: Master's Degree or Higher Difficulty w/ Childcare or Family Care: No Spiritual care concerns: No <Grant Lake MD - Last Filed: 12/24/24 06:59> Exam Narrative: GENERAL: [Well-appearing, well-nourished, and in no acute distress.] HEAD: [Normocephalic, atraumatic.] EYES: [PERRLA and EOMI.] ENT: Nares clear, no rhinorrhea or epistaxis. Mucous membranes moist. NECK: Supple. CHEST: [Clear to auscultation. No respiratory distress.] HEART: [Regular rate and rhythm]. No murmur heard. [Normal peripheral pulses.] ABDOMEN: [Soft, nondistended], [nontender], [No rigidity or guarding] EXTREMITIES: Left AV fistula with palpable thrill and multiple pseudoaneurysms around the left upper extremity. No overlying skin breakdown or deformity. No signs of purulence or infection. No tenderness reproducible palpation. 2+ radial pulse and warm extremity with good capillary refill. Range of motion is intact and full. Strength is full. SKIN: Warm, dry, no rash. NEURO: [No focal deficits]. Alert and oriented [x3.] PSYCH: [Normal mood and affect.] <Grant Lake MD - Last Filed: 12/24/24 06:59> Course Course Emergency Course: Patient signed out to me pending CTA of left upper extremity. Patient has anemia of chronic disease although hemoglobin is 9.9 today which is improved from recently per review of several lab values in the EMR. He also has an elevated troponin although repeat troponin slightly downtrending and his troponins are chronically elevated in the setting of his end-stage renal disease. Patient had dialysis yesterday and is otherwise on a Sunday schedule. Patient evaluated at bedside. Dialysis access appears intact with palpable thrill distally. He states his pain is 6/10 and he had initially declined pain medicine. Patient initially states that he believes that his dialysis was placed by vascular surgeon through [facility] in [facility]. I discussed with [facility] transfer center and they see record that was placed by a general surgeon at [facility], patient confirms that this is true and he accidentally misspoke initially. Images were pushed and I did discuss patient with DEMI Ma from [facility] who works with the accepting service. They are accepting of the patient. Patient pending bed/placement. Once bed assignment given, EMS transportation was arranged. <Ofe Painting MD - Last Filed: 12/24/24 17:08> Vital Signs Vital signs: Vital Signs Temperature 97.7 F 12/23/24 05:37 Pulse Rate 83 12/23/24 05:37 Respiratory Rate 12 12/23/24 05:37 Blood Pressure 144/91 H 12/23/24 05:37 Pulse Oximetry 100 12/23/24 05:37 Oxygen Delivery Room Air 12/23/24 05:37 Temperature 97.7 F 12/23/24 05:37 Pulse Rate 95 12/23/24 15:44 Respiratory Rate 17 12/23/24 15:44 Blood Pressure 138/85 12/23/24 15:44 Pulse Oximetry 99 12/23/24 15:44 Oxygen Delivery Room Air 12/23/24 05:37 <Grant Lake MD - Last Filed: 12/24/24 06:59> Vital Signs Temperature 97.7 F 12/23/24 05:37 Pulse Rate 83 12/23/24 05:37 Respiratory Rate 12 12/23/24 05:37 Blood Pressure 144/91 H 12/23/24 05:37 Pulse Oximetry 100 12/23/24 05:37 Oxygen Delivery Room Air 12/23/24 05:37 Temperature 97.7 F 12/23/24 05:37 Pulse Rate 95 12/23/24 15:44 Respiratory Rate 17 12/23/24 15:44 Blood Pressure 138/85 12/23/24 15:44 Pulse Oximetry 99 12/23/24 15:44 Oxygen Delivery Room Air 12/23/24 05:37 <Ofe Painting MD - Last Filed: 12/24/24 17:08> MDM - Extremity (Nontraumatic) MDM Narrative Medical decision making narrative: 59-year-old male with a history of end-stage renal disease on hemodialysis, CHF, hypertension, anemia. Presents to the emergency department with left arm pain around his fistula site as well as some enlarging of the AV fistula there. He had dialysis early 6:00 a.m. last morning prior to discharge from hospital. He was admitted ever since the of this month for fluid overload, heart failure, anemia. He underwent multiple evaluations including CT scans of the chest abdomen pelvis and CTA of the chest without any acute findings. Patient was dialyzed throughout the encounters and improved. He was discharged yesterday to home. He states that almost an hour after getting home he started experiencing sharp pains in his left fistula site and felt like the pseudoaneurysms or the AV fistula site itself appears slightly larger. No redness or overlying erythema. No complications during the dialysis sessions he has been receiving according to the patient. He denies any chest discomfort or shortness a breath. No abdominal pain, back pain, fever, chills. No trauma or injury. He states that the pain is sharp and radiating from the cannulation sites up towards his shoulder associated with some paresthesias. No strength deficits or sensory loss otherwise. No neck pain or neck stiffness. Exam shows left AV fistula with palpable thrill and multiple pseudoaneurysms around the left upper extremity. No overlying skin breakdown or deformity. No signs of purulence or infection. No tenderness reproducible palpation. 2+ radial pulse and warm extremity with good capillary refill. Range of motion is intact and full. Strength is full. He is hemodynamically stable without any significant blood pressure elevations. No tachycardia, fever or hypoxia. Patient has a reassuring examination but given his complaints that he feels sharp pain in his fistula site with subjective enlargement will have to evaluate for any potential vascular emergency such as aneurysm formation, dissection, blood clot formation less likely. Palpable thrill and distal neuro vasculature is intact. Not complaining of any current chest pain or shortness of breath. Electrolytes were obtained, coagulation panel is ordered. Chest x-ray and EKG obtained. CT angiography of the upper extremity and left side was obtained. Patient care signed over to oncoming ER physician pending results and final disposition based on workup. <Grant Lake MD - Last Filed: 12/24/24 06:59> Lab Data Result diagrams: 12/23/24 06:02 12/23/24 06:02 <Grant Lake MD - Last Filed: 12/24/24 06:59> Labs: Lab Results 12/23/24 12/23/24 Range/Units 06:02 08:44 WBC 4.8 (4.5-10.0) K/mm3 RBC 3.33 L (4.6-6.20) M/mm3 Hgb 9.9 L (14.0-18.0) g/dL Hct 30.5 L (42.0-52.0) % MCV 91.6 (80-100) fl MCH 29.7 (26-34) pg MCHC 32.5 (32-36) g/dl RDW 18.5 H (11.5-14.5) % Plt Count 241 (150-375) k/mm3 MPV 9.3 (7.4-10.4) fl Immature Gran % (Auto) 0.2 (0-0.5) % Neut % (Auto) 66.5 (45.5-73.1) % Lymph % (Auto) 19.9 (18.3-44.2) % Whitley % (Auto) 11.5 H (2.6-8.5) % Eos % (Auto) 1.5 (0-4.4) % Baso % (Auto) 0.4 (0.2-1.2) % Lymph # (Auto) 0.95 (0.9-3.2) K/mm3 Whitley # (Auto) 0.6 (0.1-0.6) K/mm3 Eos # (Auto) 0.1 (0-0.3) K/mm3 Baso # (Auto) 0.0 (0.0-0.1) K/mm3 Abs Immat Gran (auto) 0.01 (0.00-0.031) K/mm3 Absolute Neuts (auto) 3.2 (1.3-6.7) K/mm3 Absolute Nucleated RBC 0.000 (0.0-0.012) K/mm3 Nucleated RBC % 0.0 (0.0-0.2) % PT 14.4 (11.1-14.7) Seconds INR 1.1 APTT 29.7 (22.3-36.8) Seconds Sodium 134 L (137-145) mmol/L Potassium 4.5 (3.4-5.0) mmol/L Chloride 95 L (98-107) mmol/L Carbon Dioxide 25 (22-30) mmol/L Anion Gap 14 H (4-12) mmol/L BUN 50 H D (9-20) mg/dL Creatinine 9.60 H (0.7-1.3) mg/dL Estim Creat Clear Calc 9 ml/min Estimated GFR 6 L (59 - ) Glucose 91 (65-110) mg/dL Calcium 10.1 (8.4-10.2) mg/dL Magnesium 2.1 (1.6-2.3) mg/dL Total Bilirubin 0.5 (0.2-1.3) mg/dL AST 47 (17-59) U/L ALT 17 (6-50) U/L Alkaline Phosphatase 59 (38-126) U/L Troponin I 0.104 H* 0.092 H* (0.000-0.034) ng/mL Total Protein 8.5 H (6.3-8.2) g/dL Albumin 4.7 (3.5-5.1) g/dL <Grant Lake MD - Last Filed: 12/24/24 06:59> Lab Results 12/23/24 12/23/24 Range/Units 06:02 08:44 WBC 4.8 (4.5-10.0) K/mm3 RBC 3.33 L (4.6-6.20) M/mm3 Hgb 9.9 L (14.0-18.0) g/dL Hct 30.5 L (42.0-52.0) % MCV 91.6 (80-100) fl MCH 29.7 (26-34) pg MCHC 32.5 (32-36) g/dl RDW 18.5 H (11.5-14.5) % Plt Count 241 (150-375) k/mm3 MPV 9.3 (7.4-10.4) fl Immature Gran % (Auto) 0.2 (0-0.5) % Neut % (Auto) 66.5 (45.5-73.1) % Lymph % (Auto) 19.9 (18.3-44.2) % Whitley % (Auto) 11.5 H (2.6-8.5) % Eos % (Auto) 1.5 (0-4.4) % Baso % (Auto) 0.4 (0.2-1.2) % Lymph # (Auto) 0.95 (0.9-3.2) K/mm3 Whitley # (Auto) 0.6 (0.1-0.6) K/mm3 Eos # (Auto) 0.1 (0-0.3) K/mm3 Baso # (Auto) 0.0 (0.0-0.1) K/mm3 Abs Immat Gran (auto) 0.01 (0.00-0.031) K/mm3 Absolute Neuts (auto) 3.2 (1.3-6.7) K/mm3 Absolute Nucleated RBC 0.000 (0.0-0.012) K/mm3 Nucleated RBC % 0.0 (0.0-0.2) % PT 14.4 (11.1-14.7) Seconds INR 1.1 APTT 29.7 (22.3-36.8) Seconds Sodium 134 L (137-145) mmol/L Potassium 4.5 (3.4-5.0) mmol/L Chloride 95 L (98-107) mmol/L Carbon Dioxide 25 (22-30) mmol/L Anion Gap 14 H (4-12) mmol/L BUN 50 H D (9-20) mg/dL Creatinine 9.60 H (0.7-1.3) mg/dL Estim Creat Clear Calc 9 ml/min Estimated GFR 6 L (59 - ) Glucose 91 (65-110) mg/dL Calcium 10.1 (8.4-10.2) mg/dL Magnesium 2.1 (1.6-2.3) mg/dL Total Bilirubin 0.5 (0.2-1.3) mg/dL AST 47 (17-59) U/L ALT 17 (6-50) U/L Alkaline Phosphatase 59 (38-126) U/L Troponin I 0.104 H* 0.092 H* (0.000-0.034) ng/mL Total Protein 8.5 H (6.3-8.2) g/dL Albumin 4.7 (3.5-5.1) g/dL <Ofe Painting MD - Last Filed: 12/24/24 17:08> Imaging Data Radiologist's impression: Impressions Chest X-Ray 12/23/24 06:13 IMPRESSION: 1: NO ACUTE CARDIOPULMONARY DISEASE. 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 <Ofe Painting MD - Last Filed: 12/24/24 17:08> Discharge Plan Discharge Clinical Impression: Pain from arteriovenous fistula, Aneurysm, ESRD (end stage renal disease) on dialysis, Anemia in chronic kidney disease (CKD), Non-ST elevation [place] (NSTEMI) <Grant Lake MD - Last Filed: 12/24/24 06:59> Patient Disposition: Acute Care Hospital <Grant Lake MD - Last Filed: 12/24/24 06:59> Condition: Stable <Grant Lake MD - Last Filed: 12/24/24 06:59> Patient Language: Filipino <Grant Lake MD - Last Filed: 12/24/24 06:59> Prescriptions: No Action calcium acetate(phosphat bind) 667 mg Tablet 667 mg PO TID Qty: 90 1RF aspirin 81 mg Tablet,Delayed Release (Dr/Ec) 81 mg PO QAM Qty: 30 1RF bumetanide 2 mg tablet 2 mg PO DAILY Qty: 60 1RF omega 2-tcm-vvd-fish oil 900-1,400 mg capsule,delayed release(DR/EC) 1 cap PO DAILY cholecalciferol (vitamin D3) 250 mcg (10,000 unit) capsule 250 mcg PO DAILY Liquacel 16-100 gram-kcal/30 mL liquid 30 ml PO DAILY isosorbide mononitrate 30 mg Tablet Extended Release 24 Hr 30 mg PO TID atorvastatin 40 mg Tablet 40 mg PO DAILY Qty: 60 0RF nitroglycerin [Nitrostat] 0.4 mg Tablet, Sublingual 0.4 mg sublingual Q5MIN PRN (Reason: Chest Pain) Qty: 30 0RF nifedipine 90 mg tablet extended release 24hr 90 mg PO DAILY Qty: 60 0RF bisacodyl [Laxative (bisacodyl)] 5 mg Tablet,Delayed Release (Dr/Ec) 5 mg PO DAILY PRN (Reason: Constipation) Qty: 30 0RF ipratropium-albuterol 0.5 mg-3 mg(2.5 mg base)/3 mL Solution For Nebulization 3 ml inhalation Q6HRT Qty: 90 0RF polyethylene glycol 3350 [Miralax] 17 gram Powder In Packet 17 g PO QAM PRN (Reason: Constipation) Qty: 14 0RF doxycycline hyclate 100 mg Tablet 100 mg PO Q12HR Qty: 10 0RF albuterol sulfate [Ventolin HFA] 90 mcg/actuation HFA aerosol inhaler 1 inh inhalation QID PRN (Reason: shortness of breath or wheezing) Qty: 8.5 0RF (DME) compressor, for nebulizer Device See Rx Instructions .Route Qty: 1 0RF Rx Instructions: As directed hydralazine 100 mg tablet 100 mg PO TID Qty: 270 3RF <Grant Lake MD - Last Filed: 12/24/24 06:59> Follow-up/Referrals: Quan,DEMI Souza [Primary Care Provider] - <Grant Lake MD - Last Filed: 12/24/24 06:59>
[2024-12-23 06:21] LABS: INR 1.1; Prothrombin Time 14.4 Seconds (11.1-14.7)
[2024-12-23 06:22] LABS: Partial Thromboplastin Time 29.7 Seconds (22.3-36.8)
[2024-12-23 06:29] LABS: Alanine Aminotransferase 17 U/L (6-50); Albumin Level 4.7 g/dL (3.5-5.1); Alkaline Phosphatase 59 U/L (38-126); Anion Gap 14 mmol/L (4-12); Aspartate Amino Transferase 47 U/L (17-59); Bilirubin,Total 0.5 mg/dL (0.2-1.3); Blood Urea Nitrogen 50 mg/dL (9-20); Calcium 10.1 mg/dL (8.4-10.2); Carbon Dioxide 25 mmol/L (22-30); Chloride 95 mmol/L (98-107); Estimated CRCL calculation 9 ml/min; Estimated Glomerular Filt Rate 6; Glucose 91 mg/dL (65-110); Magnesium 2.1 mg/dL (1.6-2.3); Potassium 4.5 mmol/L (3.4-5.0); Sodium 134 mmol/L (137-145); Total Protein 8.5 g/dL (6.3-8.2)
[2024-12-23 06:42] LABS: Troponin I 0.104 ng/mL (0.000-0.034)
[2024-12-23 07:07] VITALS: BP 147/93; PULSE 85; RESP 12; O2SAT 100
--- NOTE | 2024-12-23 08:43 | ECG_ITS ---
Test Date: 2024-12-23 08:53:11 Measurements Intervals [place] Rate: 83 P: 56 NV: 174 QRS: -25 QRSD: 102 T: 26 QT: 381 QTc: 449 Interpretive Statements SINUS RHYTHM POSSIBLE LEFT ATRIAL ENLARGEMENT [-0.1mV P-WAVE IN V1/V2] BORDERLINE LEFT AXIS DEVIATION [QRS AXIS < -20] POSSIBLE LEFT VENTRICULAR HYPERTROPHY [VOLTAGE CRITERIA PLUS LAE OR QRS WIDENING] Compared to ECG 12/23/2024 06:27:52 No significant changes Electronically Signed On 12-23-2024 16:51:20 CDT by Sawyer Woods M.D.
[2024-12-23 08:54] VITALS: BP 140/92; PULSE 84; RESP 13; O2SAT 100
[2024-12-23 09:30] LABS: Troponin I 0.092 ng/mL (0.000-0.034)
[2024-12-23 10:38] VITALS: BP 140/100; PULSE 94; RESP 20; O2SAT 100
--- NOTE | 2024-12-23 11:17 | PC.NURSE ---
Report given to Erika Tse RN, all questions answered
[2024-12-23 11:20] VITALS: BP 131/84; PULSE 87; RESP 18; O2SAT 97
[2024-12-23 15:44] VITALS: BP 138/85; PULSE 95; RESP 17; O2SAT 99
== END 2024-12-23 20:57 | disposition short-term general hospital (02) ==
PROVIDERS: Student in an Organized Health Care Education/Training Program; Emergency Provider Student in an Organized Health Care Education/Training Program; PCP Nurse Practitioner Family
DX: T82.848A Pain due to vascular prosthetic devices, implants and grafts, initial encounter (principal); I21.4 Non-ST elevation (NSTEMI) myocardial infarction; I72.1 Aneurysm of artery of upper extremity; I13.2 Hypertensive heart and chronic kidney disease with heart failure and with stage 5 chronic kidney disease, or end stage renal disease; N18.6 End stage renal disease; I50.9 Heart failure, unspecified; Z99.2 Dependence on renal dialysis; D63.1 Anemia in chronic kidney disease; Z79.82 Long term (current) use of aspirin; Z79.899 Other long term (current) drug therapy; R94.31 Abnormal electrocardiogram [ECG] [EKG]; Y84.1 Kidney dialysis as the cause of abnormal reaction of the patient, or of later complication, without mention of misadventure at the time of the procedure
CPT/HCPCS: 36415; 71045; 73206; 80053; 83735; 84484; 85025; 85610; 85730; 93005; 99285; Q9967

== ENCOUNTER 2025-01-11 21:21 | Inpatient (IN) | payer MEDICARE, MEDICAID, SELFPAY ==
[2025-01-11] VITALS (18 sets, daily range): BP systolic 149–161; BP diastolic 93–99; PULSE 79–87; RESP 16–27; TEMP 36.6–36.7; O2SAT 100
--- NOTE | ~2025-01-11 | XR_ITS ---
EXAMINATION: XR chest 1V portable 01/11/2025 22:45 INDICATION: Shortness of breath PROCEDURE: AP portable chest COMPARISON: Comparison to multiple prior studies sequentially, with oldest reviewed study dated 12/12. FINDINGS: The lungs are clear. The cardiomediastinal silhouette mildly enlarged. There are no pleura l effusions. There is no pneumothorax suspected. IMPRESSION: 1: NO ACUTE CARDIOPULMONARY DISEASE. Reviewed, dictated and finalized at location A.
--- NOTE | 2025-01-11 21:31 | ECG_ITS ---
Test Date: 2025-01-11 21:45:03 Measurements Intervals [place] Rate: 79 P: 52 NM: 163 QRS: -4 QRSD: 91 T: 18 QT: 390 QTc: 450 Interpretive Statements SINUS RHYTHM LEFT ATRIAL ENLARGEMENT BORDERLINE ECG Compared to ECG 12/23/2024 08:53:11 No significant changes Electronically Signed On 01-12-2025 06:15:08 CDT by David Tay D.O.
[2025-01-11 22:00] LABS: Hematocrit 30.8 % (42.0-52.0); Hemoglobin 10.0 g/dL (14.0-18.0); Immature Granulocyte Percent A 0.2 % (0-0.5); Lymphocytes Absolute Auto 0.79 K/mm3 (0.9-3.2); Mean Corpuscular HGB Conc 32.5 g/dl (32-36); Mean Corpuscular Hemoglobin 29.9 pg (26-34); Mean Corpuscular Volume 92.2 fl (80-100); Nucleated Red Blood Cells Absolute Auto 0.000 K/mm3 (0.0-0.012); Nucleated Red Blood Cells Perc 0.0 % (0.0-0.2); Platelet Count Result 156 k/mm3 (150-375); Red Blood Count 3.34 M/mm3 (4.6-6.20); White Blood Count 4.0 K/mm3 (4.5-10.0)
--- OUTSIDE RECORDS SUMMARY | 2025-01-11 22:07 | XMS_ITS | Clinical Summary ---
Author Organization [facility] [employer] Address [address] [place] [address] Care Team Providers Care Loan Workout Officer Name Role Phone Beckykunal Libby KIMBERLY Primary Care Provider [phone] Source Comments [facility] [employer],non-owned Affiliates and Associated Physician Practices is amultiple site organization consisting of ambulatory clinics and hospital sitesin [place], [place], [place] and [place]. This disclosure is being madepursuant to the Care Everywhere program and may not contain all information available regarding this patient. Last updated 18.[facility] [employer] Allergies No known active allergies Medications * Be aware that medications may not be up to date on this document. Alwaysverify current medications with the patient. Aspirin Low Dose 81 MG tablet Take 1 (one) tablet by mouth every morning 3 Active calcium acetate (Phoslo) 667 MG capsule Take 2 (two) capsules by mouth 3 times daily before meals 3 Active isosorbide mononitrate CR 24hr (Imdur) 30 MG tablet Take 1 (one) tablet by mouth every morning 3 Active Entresto 24-26 MG tablet TAKE 1/2 TABLET BY MOUTH EVERY 12 HOURS 3 Active calcium carbonate (Tums) 500 MG chew tablet TAKE 4 TABS BY MOUTH DAILY AT BEDTIME 3 Active Docusate Sodium (DSS) 100 MG Take 100 mg by mouth 2 times daily as needed 4 Active NIFEdipine CR osmotic 24hr (Procardia-XL) 90 MG tablet Take 1 (one) tablet by mouth once daily 4 Active hydrALAZINE (Apresoline) 50 MG tablet Take 1 (one) tablet by mouth 3 times daily 90 tablet 5 Active BUMETANIDE PO 12/25/19 Discontinu ed(List Clean-Up) hydrALAZINE (Apresoline) 50 MG tablet Take 1 (one) tablet by mouth 3 times daily 3 12/25/19 Discontinu ed(List Clean-Up) hydrALAZINE (Apresoline) 100 MG tablet Take 1 (one) tablet by mouth 3 times daily 12/26/19 Discontinu ed(Dose Adjustment ) Active Problems Problem Noted Date Diagnosed Date Aneurysm of arteriovenous di alysis fistula, initial encounter 12/23/2024 Encounter regarding vascular access for dialysis for end-stage renal disease 08/22/2022 ESRD (end stage renal disease) 07/25/2022 Resolved Problems Problem Noted Date Diagnosed Date Resolved Date Dialysis complication, initial encounter 12/23/2024 12/25/2024 Encounters Date Type Department Care Team Description 12/25/2024 9:02 PM CDT - 12/25/2024 10:16 PM CDT Emergency ER at [address] [address] Irving Anderson DO Left arm pain; Pseudoaneurysm of arteriovenous dialysis fistula, sequela Discharge Disposition: Home or Self Care 12/25/2024 Travel 12/23/2024 9:41 PM CDT - 12/25/2024 6:24 PM CDT Hospital Encounter [address] [place] [id number] Jenniffer Alford MD Arekooti, Hasita, MD Internal Medicine Discharge Disposition: Home or Self Care 12/23/2024 Travel from Last 3 Months Family History Medical History Relation Name Comments Renal Disease Brother CVA Mother Relation Name Status Comments Brother Mother Social History Tobacco Use Types Packs/Day Years Used Date Smoking Tobacco: Never Smokeless Tobacco: Never Tobacco Cessation:Counseling Given: No Alcohol Use Standard Drinks/Week Comments Not Currently 0 (1 standard drink = 0.6 oz pur e alcohol) AUDIT-C Answer Date Recorded Q1: How often do you have a drink containing alcohol? Never 12/25/2024 Q2: How many drinks containi ng alcohol do you have on a typical day when you are drinking? Patient does not drink Q3: How often do you have si x or more drinks on one occasion? Never 12/25/2024 Overall Financial Resource Strain (CARDIA) Answe r Date Recorded How hard is it for you to pa y for the very basics like food, housing, medical care, and heating? Not very hard 12/23/2024 [facility] - Occupational Stress Questionnaire Answer Date Recorded Do you feel stress - tense, restless, nervous, or anxious, or unable to sleep at night because your mind is troubled all the time - these days? Not at all 12/23/2024 Hunger Vital Sign Answer Date Recorded Within the past 12 months, y ou worried that your food would run out before you got the money to buy more. Never true 12/24/19 25 Within the past 12 months, t he food you bought just didn't last and you didn't have money to get more. Never true 12/23/2024 PRAPARE - Transportation Answer Date Re corded In the past 12 months, has l ack of transportation kept you from medical appointments or from getting medications? Yes 12/03 In the past 12 months, has l ack of transportation kept you from meetings, work, or from getting things needed for daily living? Yes 12/23/2024 Housing Stability Vital Sign Answer Nikolai e Recorded In the last 12 months, was t here a time when you were not able to pay the mortgage or rent on time? No 12/23/2024 In the past 12 months, how m any times have you moved where you were living? 0 12/23/2024 At any time in the past 12 m [facility], were you homeless or living in a retirement (including now)? 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 Gender Identity Not on file Sexual Orientation Not on file Last Filed Vital Signs Vital Sign Reading Time Taken Comments Blood Pressure 120/87 12/25/2024 8:56 PM CDT Pulse 96 12/25/2024 8:56 PM CDT Temperature 37 C (98.6 F) 12/25/2024 8:56 PM CDT Respiratory Rate 18 12/25/2024 8:56 PM CDT Oxygen Saturation 95% 12/25/2024 8:56 PM CDT Inhaled Oxygen Concentration - - Weight 81.6 kg (180 lb) 12/25/2024 8:46 PM CDT Height 182.9 cm (6') 12/25/2024 8:46 PM CDT Body Mass Index 24.41 12/25/2024 8:46 PM CDT Plan of Treatment Upcoming Encounters Date Type Department Care Team (Late st Contact Info) Description 06/29/2025 2:15 PM DINING ROOM MAID Appointment [facility] Health Vascular Services [address], [address] [place] [address] [place] [address] [facility] [address] [place] [address] Health Maintenance Due Date Last Done Comments CT COLONOGRAPHY - COLON CA SCREENING 1965 FIT - COLON CA SCREENING 1965 FLEX SIG - COLON CA SCREENING 1965 LIPID TESTING 1965 HIV SCREENING 12/14/1978 DTAP/TDAP/TD VACCINES (1 - Tdap) 12/14/1982 PNEUMOCOCCAL VACCINE 50+ (1 of 1 - PCV) 12/14/2013 ZOSTER VACCINE (1 of 2) 12/14/2013 COVID-19 VACCINE (4 - season) 2024 10/17/2021, 02/09/2021, 01/12/2021 DEPRESSION SCREENING 06/04/2024 MEDICARE AWV CALENDAR YEAR 2024 INFLUENZA VACCINE (#1) 2025 4, 04/08/2023, 03/18/2022 COLOGUARD (AGES 45-75) - COLON CA SCREENING 11/14/2025 11/14/2022 SCREENING FOR DIABETES 12/26/2027 5, 12/23/2024, 05/30/2023, Additional history exists COLON MONITORING 10/27/2032 10/27/2022 COLONOSCOPY - COLON CA SCREENING 10/27/2032 10/27/2022 Colorectal Cancer Screening 10/27/2032 Respiratory Syncytial Virus (RSV) Vaccine Pt: or over 60 yrs (1 - 1-dose 75+ series) 12/14/2038 HEPATITIS C SCREENING Completed 08/15/2024 , 06/26/2024, 05/30/2023, Additional history exists HEPATITIS B VACCINE Aged Out No longe [...] A/C/Y/W VACCINE Aged Out No longer eligible based on patient's age to complete this topic Procedures Procedure Name Priority Date/Time Associated Diagnosis Comments CARDIAC RHYTHM STRIP ORDER 12/29/2024 9:21 PM CDT CARDIAC EKG ORDER 12/29/2024 9:2 0 PM CDT VAS LEFT VENOUS DUPLEX UE Routine 12/25/2024 11:49 AM CDT Aneurysm of arteriovenous dialysis fistula, initial encounter BASIC METABOLIC PANEL (CALCIUM TOTAL) AM Draw 12/25/2024 5:04 AM CDT CBC W/O DIFFERENTIAL AM Draw 12/25/2024 5:04 AM CDT HEPATITIS B PANEL STAT 12/24/2024 10: 43 AM CDT HEPATITIS B SURFACE ANTIGEN W RFLX CONFIRMATION STAT 12/24/2024 10:40 AM CDT HEMODIALYSIS INPATIENT Routine 12/24/2024 7:04 AM CDT PT-INR STAT 12/23/2024 11:04 PM CDT B-TYPE NATRIURETIC PEPTIDE STAT 12/23/2024 11:04 PM CDT CBC W AUTO DIFFERENTIAL STAT 12/23/2024 11:04 PM CDT COMPREHENSIVE METABOLIC PANEL STAT 12/23/2024 11:04 PM CDT from Last 3 Months Results * CARDIAC RHYTHM STRIP ORDER (12/29/2024 9:21 PM CDT) Narrative 12/29/2024 9:21 PM CDT Ordered by an unspecified provider. us Scanned Document CARDIAC SERVICES ORDERABLES [place] Result - Final * CARDIAC EKG ORDER (12/29/2024 9:20 PM CDT) Narrative 12/29/2024 9:20 PM CDT Ordered by an unspecified provider. us Scanned Document CARDIAC SERVICES ORDERABLES Fin al Result * VAS Left Venous Duplex Ue (12/25/2024 11:49 AM CDT) Anatomical Region Laterality Modality Upper Extremity Ultrasound 12/25/2024 12:1 4 PM CDT Narrative Procedure Note Hi Vallejo MD - 12/25/2024 [place] [id number] Upper Extremity Venous Ultrasound Report Pat.Name: CLEVELAND SHANT Marcy Pat.ID: [id number] .Date: 12/25/2024 Refer.MD: Jenniffer Alford Exam Time: 12:14:00 PM Study Type:UE Venous Age: 7 1965,59Y Sex: MALE Sonogrphr: Ale Elliott RVT Pat. Stat.:Inpatient ICD - 9: T82.898A CPT - 4: 86309 Reason for Study: Pain -Arm, left Procedures: AV Fistula Evaluation Race: 2 Visit ID: [id number] ++++++++++++++++++++++++++++++++++++ SUMMARY: ++++++++++++++++++++++++++++++++++++ patent L arm fistula, moderate dilation in mid fistula no significant elio fistula fluid ++++++++++++++++++++++++++++++++++++ FINDINGS: ++++++++++++++++++++++++++++++++++++ Procedure: B-mode imaging, color flow Doppler and spectral analysis were used to evaluate the AV fistula in the distal arm of the left upper extremity. Study Quality: This study is of adequate technical quality. Lt Arm: There is patent AV fistula involving the Lt cephalic vein and the brachial artery. There is normal velocities within the Lt prox anastomosis. The anastomosis of the fistula measures 7.6 mm transverse diameter. The average diameter measured 11.3 mm proximally, 31.0 mm mid, and mm distally. Aneurysmal area mid cephalic largest diameter is 3.09 by 2.52 cm Signed 12/25/2024 03:32 PM Hi Vallejo MD us Jenniffer Alford MD VASCULAR LAB ORDERABLES Edite d * (ABNORMAL) CBC W/O DIFFERENTIAL (12/25/2024 5:04 AM CDT) WBC 3.4(L) 4.0 - 10.7 x10E9/L 12/25/2024 5:46 AM CDT [facility] RBC Count 3.22(L) 4.30 - 5.80 x10E12/L 12/25/2024 5:46 AM CDT [facility] Hemoglobin 9.4(L) 13.3 - 17.5 g/dL 12/25/2024 5:46 AM CDT [facility] Hematocrit 29.4(L) 38.7 - 51.1 % 12/25/2024 5:46 AM CDT [facility] MCV 91.3 80.0 - 98.0 fL 12/25/2024 5:46 AM CDT [facility] MCH 29.2 26.7 - 33.6 pg 12/25/2024 5:46 AM CDT [facility] MCHC 32.0 31.7 - 36.3 g/dL 12/25/2024 5:46 AM CDT [facility] RDW-CV 17.9(H) 11.3 - 14.8 % 12/25/2024 5:46 AM CDT [facility] Platelet Count 209 150 - 420 x10E9/L 12/25/2024 5:46 AM CDT [facility] MPV 9.1 7.8 - 11.4 fL 12/25/2024 5:46 AM CDT [facility] Blood BLOOD SPECIMEN / Unknown Venipuncture / Unknown 12/25/2024 5:04 AM CDT 12/25/2024 5:11 AM CDT us Jenniffer Alford MD LAB - HEMATOLOGY ORDERABLES F inal Result [facility] [address] [place] [address] * (ABNORMAL) BASIC METABOLIC PANEL (CALCIUM TOTAL) (12/25/2024 5:04 AM CDT) Glucose 92 70 - 99 mg/dL 12/25/2024 5:32 AM [facility] Sodium 139 136 - 145 mmol/L 12/25/2024 5:32 AM [facility] Potassium 5.0 3.5 - 5.1 mmol/L 12/25/2024 5:32 AM T [facility] Chloride 101 98 - 107 mmol/L 12/25/2024 5:32 AM T [facility] CO2 26 22 - 29 mmol/L 12/25/2024 5:32 AM [facility] Calcium 8.4 8.4 - 10.4 mg/dL 12/25/2024 5:32 AM [facility] Anion Gap 12 6 - 16 mmol/L 12/25/2024 5:32 AM T [facility] BUN 43(H) 7 - 26 mg/dL 12/25/2024 5:32 AM T [facility] Creatinine 8.47(H) 0.72 - 1.25 mg/dL 12/25/2024 5:32 AM [facility] eGFR by CKD-EPI 7(L) >=90 mL/min/1.7 3 m2 12/25/2024 5:32 AM T [facility] Comment:Estimated Glomerular Filtration Rate (eGFR) calculated using the CKD-EPI Creatinine Equation (2020), per the National Kidney Foundation and [place] [employer] of Nephrology recommendations. Blood BLOOD SPECIMEN / Unknown Venipuncture / Unknown 12/25/2024 5:04 AM CDT 12/25/2024 5:11 AM CDT Jenniffer Alford MD LAB - CHEMISTRY ORDERABLES Fi nal Result Performing Organization Address City/[facility]/ZIP Co de Phone Number [facility] [address] [place] [address] * HEPATITIS B PANEL (12/24/2024 10:43 AM CDT) HBsAb Non Reactive Non Reactive 12/24/2024 5:10 PM CDT [facility] Hepatitis B Virus Surface Antibody Quantitative 3.31 0.00 - 7.99 mIU/ml 12/24/2024 5:10 PM CDT [facility] HBsAg Non Reactive Non Reactive 12/24/2024 5:10 PM CDT [facility] HBc Antibody IgM Non Reactive Non Reactive 12/24/2024 5:10 PM CDT [facility] Blood BLOOD SPECIMEN / Unknown Venipuncture / Unknown 12/24/2024 10:43 AM CDT 12/24/2024 10:54 AM CDT Narrative [facility] - 12/24/2024 5:10 PM CDT Individual is considered not immune to HBV infection Gautam Huff MD LAB - CHEMISTRY ORDERABLES Final Result Performing Organization Address City/[facility] Co de Phone Number [facility] [address] [place] [address] * HEPATITIS B SURFACE ANTIGEN W RFLX CONFIRMATION (12/24/2024 10:40 AM CDT) HBsAg Non Reactive Non Reactive 12/24/2024 3:20 PM CDT [facility] Blood BLOOD SPECIMEN / Unknown Venipuncture / Unknown 12/24/2024 10:40 AM CDT 12/24/2024 2:48 PM CDT Hima Storm MD LAB - CHEMISTRY ORDERABLES Final Result Performing Organization Address [facility] de Phone Number [facility] [address] [place] [address] * PT-INR (12/23/2024 11:04 PM CDT) [facility] PT 14.4 12.1 - 14.8 sec 12/23/2024 11:45 PM CDT [facility] INR 1.1 0.9 - 1.1 12/23/2024 11:45 PM CDT [facility] Blood BLOOD SPECIMEN / Unknown Venipuncture / Unknown 12/23/2024 11:04 PM CDT 12/23/2024 11:18 PM CDT Narrative [facility] - 12/23/2024 11:45 PM CDT Conventional Warfarin Anticoagulant Therapy: INR Reference Range: 2.0-3.0 Intensive Warfarin Anticoagulant Therapy: INR Reference Range: 2.5-3.5 Talia Chacon MD LAB - COAGULATION ORDERABLES Final Result Performing Organization Address [facility] de Phone Number [facility] [address] [place] [address] * (ABNORMAL) CBC W AUTO DIFFERENTIAL (12/23/2024 11:04 PM CDT) [facility] WBC 3.2(L) 4.0 - 10.7 x10E9/L 12/23/2024 11:23 PM CDT [facility] RBC Count 3.33(L) 4.30 - 5.80 x10E12/L 12/23/2024 11:23 PM CDT [facility] Hemoglobin 9.8(L) 13.3 - 17.5 g/dL 12/23/2024 11:23 PM CDT [facility] Hematocrit 31.8(L) 38.7 - 51.1 % 12/23/2024 11:23 PM CDT [facility] MCV 95.5 80.0 - 98.0 fL 12/23/2024 11:23 PM CDT [facility] MCH 29.4 26.7 - 33.6 pg 12/23/2024 11:23 PM CDT [facility] MCHC 30.8(L) 31.7 - 36.3 g/dL 12/23/2024 11:23 PM CDT [facility] RDW-CV 18.2(H) 11.3 - 14.8 % 12/23/2024 11:23 PM CDT [facility] Platelet Count 222 150 - 420 x10E9/L 12/23/2024 11:23 PM CDT [facility] MPV 9.5 7.8 - 11.4 fL 12/23/2024 11:23 PM CDT [facility] Neutrophil % 58.1 41.0 - 74.0 % 12/23/2024 11:23 PM CDT [facility] Lymphocyte % 24.8 17.0 - 47.0 % 12/23/2024 11:23 PM CDT [facility] Monocyte % 11.1(H) 3.0 - 11.0 % 12/23/2024 11:23 PM CDT [facility] Eosinophil % 5.1 0.0 - 7.0 % 12/23/2024 11:23 PM CDT [facility] Basophil % 0.6 0.0 - 1.6 % 12/23/2024 11:23 PM CDT [facility] Immature Granulocytes % 0.3 0.0 - 1.0 % 12/23/2024 11:23 PM CDT [facility] Neutrophil Absolute 1.83 1.60 - 7.50 x10E9/L 12/23/2024 11:23 PM CDT [facility] Lymphocyte Absolute 0.78(L) 1.00 - 4.40 x10E9/L 12/23/2024 11:23 PM CDT [facility] Monocyte Absolute 0.35 0.15 - 1.00 x10E9/L 12/23/2024 11:23 PM CDT [facility] Eosinophil Absolute 0.16 0.00 - 0.60 x10E9/L 12/23/2024 11:23 PM CDT [facility] Basophil Absolute 0.02 0.00 - 0.13 x10E9/L 12/23/2024 11:23 PM CDT [facility] Blood BLOOD SPECIMEN / Unknown Venipuncture / Unknown 12/23/2024 11:04 PM CDT 12/23/2024 11:18 PM CDT Talia Chacon MD LAB - HEMATOLOGY ORDERABLES F inal Result Performing Organization Address [facility] Co de Phone Number [facility] [id number] [place] [address] * (ABNORMAL) B-TYPE NATRIURETIC PEPTIDE (12/23/2024 11:04 PM CDT) BNP 130(H) <=100 pg/mL 12/23/2024 11:54 PM CDT [facility] Blood BLOOD SPECIMEN / Unknown Venipuncture / Unknown 12/23/2024 11:04 PM CDT 12/23/2024 11:18 PM CDT Talia Chacon MD LAB - CHEMISTRY ORDERABLES Fi nal Result Performing Organization Address [facility] de Phone Number [facility] [id number] [place] [address] * (ABNORMAL) COMPREHENSIVE METABOLIC PANEL (12/23/2024 11:04 PM CDT) Glucose 130(H) 70 - 99 mg/dL 12/24/2024 12:16 AM CDT [facility] Sodium 137 136 - 145 mmol/L 12/24/2024 12:16 AM CDT [facility] Potassium 5.0 3.5 - 5.1 mmol/L 12/24/2024 12:16 AM CDT [facility] Chloride 99 98 - 107 mmol/L 12/24/2024 12:16 AM CDT [facility] CO2 21(L) 22 - 29 mmol/L 12/24/2024 12:16 AM CDT [facility] Calcium 9.3 8.4 - 10.4 mg/dL 12/24/2024 12:16 AM T [facility] Anion Gap 17(H) 6 - 16 mmol/L 12/24/2024 12:16 AM CDT [facility] BUN 62(H) 7 - 26 mg/dL 12/24/2024 12:16 AM CDT [facility] Creatinine 11.24(H) 0.72 - 1.25 mg/dL 12/24/2024 12:16 AM CDT [facility] Alkaline Phosphatase 57 40 - 150 U/L 12/24/2024 12:16 AM CDT [facility] ALT 13 6 - 57 U/L 12/24/2024 12:16 AM CDT [facility] AST 35 10 - 48 U/L 12/24/2024 12:16 AM CDT [facility] Protein Total 7.4 6.4 - 8.3 gm/dL 12/24/2024 12:16 AM CDT [facility] Albumin 3.8 3.1 - 4.5 gm/dL 12/24/2024 12:16 AM CDT [facility] Bilirubin Total 0.5 0.2 - 1.2 mg/dL 12/24/2024 12:16 AM CDT [facility] eGFR by CKD-EPI 5(L) >=90 mL/min/1. 73 m2 12/24/2024 12:16 AM CDT [facility] Comment:Estimated Glomerular Filtration Rate (eGFR) calculated using the CKD-EPI Creatinine Equation (2020), per the National Kidney Foundation and [place] [employer] of Nephrology recommendations. Blood BLOOD SPECIMEN / Unknown Venipuncture / Unknown 12/23/2024 11:04 PM CDT 12/23/2024 11:18 PM CDT Talia Chacon MD LAB - CHEMISTRY ORDERABLES nal Result [facility] [address] [place] [address] from Last 3 Months Insurance MEDICAID - [place] [facility] MEDICARE ADV Advance Directives * Full Code (Latest Code Status on File) Date Activated Date Inactivated Comments 12/23/2024 9:49 PM 12/25/2024 7:24 PM Care Teams Loan Workout Officer Relationship Specialty Start Date End Date Libby Glass APRN-DIRECTOR OF BROADCAST [address] [facility] [address] [place] [address] PCP - General Internal Medicine 12/25/24
--- OUTSIDE RECORDS SUMMARY | 2025-01-11 22:09 | XMS_ITS | Encounter Summary ---
Author Organization [facility] Healthcare Address [address] [place] [address] Care Team Providers Care Wind Technician Name Role Phone Libby Glass NP Primary Care Provider [phone] Chaparro Holcomb MD Unavailable [phone] Leny Mares RN Unavailable Ingris Hodgson MA Unavailable Encounter Details Date Type Department Care Team (Late st Contact Info) Description 07/11/2024 Documentation [facility] [address] [place] [address] Cheyanne Combs RN Social History Tobacco Use Types Packs/Day Years Used Date Smoking Tobacco: Never Smokeless Tobacco: Never [facility] Utilities Answer Date Recorded In the past 12 months has [employer], gas, oil, or water [employer] threatened to shut off services in your home? No 06/13/2024 Social Connection and Isolation Panel Answer Date Recorded In a typical week, [...] any clubs o r organizations such as buddhist groups, unions, fraternal or athletic groups, or [...] time in the past [address] 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 Gender Identity Not on file Sexual Orientation Not on file documented as of this encounter Plan of Treatment Not on file documented as of this encounter Visit Diagnoses Not on filedocumented in this encounter Additional Health Concerns Infection Onset Date Last Indicated Resolved Time COVID: Suspected 08/15/2024 08/15/2024 08/15/2024 3:49 PM CDT documented as of this encounter Care Teams Wind Technician Relationship Specialty Start Date End Date Libby Glass NP [address] [facility] [address] [place] [address] PCP - General Internal Medicine 10/27/22 Chaparro Holcomb MD [address] [facility] [address] [place] [address] Referring Physician Nephrology 10/27/22 Leny Mares RN [address] [facility] [address] [place] [address] Section [employer] Activities Clerk 02/15/23 Ingris Hodgson MA [address] [place] [address] [facility] Care Optic Fibre Drawer 12/25/24 12/25/24 [facility] 08/23/23 documented as of this encounter
--- OUTSIDE RECORDS SUMMARY | 2025-01-11 22:09 | XMS_ITS | Encounter Summary ---
Author Organization [facility] Healthcare Address [address] [place] [address] Care Team Providers Care Machine Ii Cutter Name Role Phone Libby Glass NP Primary Care Provider [phone] Chaparro Holcomb MD Unavailable [phone] Leny Mares RN Unavailable Ingris Hodgson MA Unavailable Encounter Details Date Type Department Care Team (Late st Contact Info) Description 2024 Orders Only [facility] Health Information Management [address] [place] [id number] Scanning, Provider Social History Tobacco Use Types Packs/Day Years Used Date Smoking Tobacco: Never Smokeless Tobacco: Never [facility] Utilities Answer Date Recorded In the past 12 months has [employer] electric, gas, oil, or water company threatened [...] often do you attend chur ch or rastafari services? 1 to 4 times per year 06/13/2024 Do you belong to any clubs o r organizations such as alevism groups, unions, fraternal or athletic groups, or [...] any time in the past 12 m [facility], were you homeless or living in a senior living (including now)? No 06/13/2024 Personal Safety Answer Date Recorded Have you ever been in or are you currently in a harmful physical or emotional relationship or is someone making you feel afraid or unsafe? 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 Gender Identity Not on file Sexual Orientation Not on file documented as of this encounter Plan of Treatment Not on file documented as of this encounter Procedures Procedure Name Priority Date/Time Associated Diagnosis Comments CARDIOLOGY DOCUMENT SCAN 2024 documented in this encounter Results * Cardiology Document Scan (2024) Anatomical Region Laterality Modality Other us Provider Scanning CV CARDIAC SERVICES PROCEDURES Final Result documented in this encounter Visit Diagnoses Not on filedocumented in this encounter Care Teams Machine Ii Cutter Relationship Specialty Start Date End Date Libby Glass NP [address] [facility] [address] [place] [address] PCP - General Internal Medicine 10/27/22 Chaparro Holcomb MD [address] [facility] [address] [place] [address] Referring Physician Nephrology 10/27/22 Leny Mares, TERRI [address] [facility] [address] [place] [address] Rolled Glass Crosscutter 02/15/23 Ingris Hodgson MA [address] [place] [address] [address] [place] [address] ACO Care Manager Regional 12/25/24 12/25/24 [facility] Dentist 08/23/23 documented as of this encounter
--- OUTSIDE RECORDS SUMMARY | 2025-01-11 22:09 | XMS_ITS | Clinical Summary ---
Author Organization [facility] [address] Address [address] [place] [address] Care Team Providers Care Deli Worker Name Role Phone Libby Glass NP Primary Care Provider [phone] Chaparro Holcomb MD Unavailable [phone] Leny Mares RN Unavailable Allergies No [...] next few days. Prescribed lidocaine patches at nm. Assessment & Plan (06/27/2024 4:28 PM CART ATTENDANT): Unclear etiology for chest pain. Initial workup [...] dc Assessment & Plan (06/27/2024 4:01 PM CART ATTENDANT): On home Bumex 2mg, nifedipine, Imdur, hydral [...] phoslo Assessment & Plan (06/27/2024 4:01 PM CART ATTENDANT): On schedule as outpatient - 06/26 iHD completed - Local [facility] in [facility]. - Nephrology ESRD Team following Resolved Problems Problem Noted Date Diagnosed Date Resolved Date BMI 25.0-25.9,adult 02/28/2023 07/01/19 25 Assessment & Plan (03/21/2024 1:04 PM CDT): Weight/BMI is in healthy range. Continue healthy lifestyle to maintain. Assessment & Plan (01/07/2024 1:34 PM CDT): Weight/BMI is in healthy range. Continue healthy lifestyle to maintain. Encounters Date Type Department Care Team Description 01/02/2025 Telephone [facility] Medical Group Family Medicine [address] [facility] [email or web address] [place] [address] Libby Glass NP Medical Question/Miscellane ous 12/25/2024 DEBORAH IP Outreach [facility] Accountable Care Organization [address] [place] [address] Ingris Hodgson MA 12/23/2024 Orders Only [facility] Health Information Management [address] [place] [address] Scanning, Provider 12/17/2024 Orders Only [facility] Health Information Management [address] [place] [address] Scanning, Provider 12/16/2024 Orders Only [facility] Medical Group Cardiology [address] [place] [address] Mita Major MD 2024 Orders Only [facility] Health Information Management [address] [place] [address] Scanning, Provider 2024 Telephone [facility] Cardiology [address] [facility] 8th [place] [address] [place] [address] Giuliana Grullon CPhT 12/12/2024 Telephone [facility] Medical [facility] Cardiology [address] [facility] [address] [place] [address] Mita Major MD 12/10/2024 Orders Only [facility] Health Information Management [address] [place] [address] Libby Glass NP 12/03/2024 10:00 AM CDT - 12/03/2024 11:59 PM CDT Hospital Encounter [facility] [address] [place] [address] ESRD (end stage renal disease) (HCC) Discharge Disposition: Discharge to home or self care 11/03/2024 10:00 AM CDT - 11/03/2024 11:59 PM CDT Hospital Encounter [facility] [address] [place] [address] ESRD (end stage renal disease) ([facility]) Discharge Disposition: Discharge to home or self care 10/17/2024 Telephone [facility] Transplant Kidney [address] [facility] [address] [phone] [place] [address] Leny Mares RN 10/16/2024 Telephone [facility] Transplant Kidney [address] [facility] [address] [phone] [place] [address] Leny Mares, TERRI 10/15/2024 10:00 AM CDT - 10/15/2024 11:59 PM CDT Hospital Encounter [address] [address] ESRD (end stage renal disease) ([facility] [...] Tobacco: Never Tobacco Cessation:Counseling Given: Not Answered [facility] Utilities Answer Date Recorded In the past 12 months has [employer] gas, oil, or water [employer] threatened to shut off services in your [...] often do you attend chur ch or episcopal services? 1 to 4 times per year [...] money to buy more. Never true 06/13/19 Within the past 12 months, t he [...] time in the past 12 m [facility], were you homeless or living [...] on file Legal Sex Male 2:12 AM CART ATTENDANT Gender Identity Not on file Sexual Orientation [...] Procedure Name Priority Date/Time Associated Diagnosis Comments SCAN - RADIOLOGY/IMAGING 12/23/2024 SCAN - RADIOLOGY/IMAGING 12/16/2024 CARDIOLOGY DOCUMENT SCAN Routine 2024 5:20 PM CDT CARDIOLOGY DOCUMENT SCAN 2024 CARDIOLOGY DOCUMENT SCAN Routine 12/14/2024 5:18 PM [...] HEPATITIS C ANTIBODY Routine 05/30/2023 12:42 PM CART ATTENDANT End stage renal disease (HCC) COLONOSCOPY Routine 10/27/2022 10:35 AM CDT from Last 3 Months or Most Recently Relevant to Health Maintenance Results * SCAN - RADIOLOGY/IMAGING (12/23/2024) Anatomical Region Laterality Modality Other us Provider Scanning Final Result * SCAN - RADIOLOGY/IMAGING (12/16/2024) Anatomical Region Laterality Modality Other us Provider Scanning Edited Result - Final * Cardiology Document Scan (2024 5:20 PM CDT) Anatomical Region Laterality Modality Other us Senthil Reynolds MD CV CARDIAC SERVICES PROCEDURES F inal Result * Cardiology Document Scan (2024) Anatomical Region Laterality Modality Other us Provider Scanning CV CARDIAC SERVICES PROCEDURES Final Result * Cardiology Document Scan (12/14/2024 5:18 PM CDT) Anatomical Region Laterality Modality Other us John Reza MD CV CARDIAC SERVICES PROCE DURES Final Result * Cardiology Document Scan (12/13/2024 5:16 PM CDT) Anatomical Region Laterality Modality Other us John Reza MD CV CARDIAC SERVICES PROCE [...] Anatomical Region Laterality Modality Other Libby Glass NP Edited Result - Final * HLA Antibody Screen by PRA or SAB per Schedule (Class I and Class II) (12/03/2024 10:00 AM CDT) Blood 12/03/2024 10:0 0 AM CDT Narrative HISTOTRAC - CART ATTENDANT Sample received in lab. PRA Screen ordered. [...] a method developed and validated by the [facility] HLA laboratory based on an FDA- approved IVD kit (LABScreen PRA, [employer], [place], [place]). Interpretive comments: The percentage of beads with MFI > 750 is reported, which indicates the percentage of donor population estimated to be incompatible with the patient tested. PRA > 0% is consistent with alloimmunization to HLA. Testing performed at the [facility] HLA Laboratory, [facility], 5th floor, [place], [address]. [facility] # [id number]. Donna Paulson, Ph.D., Surgical Physician Assistant, HLA Laboratory Lazaro Hernandez M.D., Ph.D., Vba Programmer, HLA Laboratory Tammy Estevez, Ph.D., [place] Vba Programmer, [facility] Clinical Laboratories Current methodology and interpretive comments last revised on 09/26/2017. Wayne Abraham MD LAB BLOOD ORDERABLES Final Resu lt Performing Organization Address [facility] de Phone Number HISTOTRAC * HLA Antibody Screen by PRA or SAB per Schedule (Class I and Class II) (11/03/2024 10:00 AM CDT) Blood 11/03/2024 10:0 0 AM CDT Narrative HISTOTRAC - CART ATTENDANT Sample received in lab and stored. No testing performed at this time. Wayne Abraham MD LAB BLOOD ORDERABLES Final Resu lt Performing Organization Address [facility] de Phone Number HISTOTRAC * HLA Antibody Screen by PRA or SAB per Schedule (Class I and Class II) (10/15/2024 10:00 AM CDT) Blood 10/15/2024 10:0 0 AM CDT Narrative HISTOTRAC - CART ATTENDANT Sample received in lab. PRA Screen ordered. [...] a method developed and validated by the [facility] HLA laboratory based on an FDA- approved IVD kit (LABScreen PRA, [employer], [place], [place]). Interpretive comments: The percentage of beads with MFI > 750 is reported, which indicates the percentage of donor population estimated to be incompatible with the patient tested. PRA > 0% is consistent with alloimmunization to HLA. Testing performed at the [facility] HLA Laboratory, [address] [place] [address], 5th floor, [place], [address]. CLIA # [id number]. Donna Paulson, Ph.D., Surgical Physician Assistant, HLA Laboratory Lazaro Hernandez M.D., Ph.D., Vba Programmer, HLA Laboratory Tammy Estevez, Ph.D., CLIA Vba Programmer, [facility] Clinical Laboratories Current methodology and interpretive comments last revised on 09/26/2017. us Wayne Abraham MD LAB BLOOD ORDERABLES Final Resu lt HISTOTRAC * PSA screen (01/09/2024 11:10 AM CDT) PSA 0.82 < OR = 4.00 ng/mL [facility] Comment: The total PSA value [...] NP LAB BLOOD ORDERABLES Final Re sult [facility] [address] [place] [address] * Hepatitis C antibody Blood (05/30/2023 12:42 PM CART ATTENDANT) Hep C Ab Nonreactive Nonreactive [facility] Comment:Antibodies to HCV no t detected. Does NOT exclude the possibility of recent exposure to HCV. Current interpretive data was last revised on 22 Blood 05/30/2023 12:4 2 PM CART ATTENDANT 05/30/2023 1:22 PM CART ATTENDANT Narrative [facility] - 05/30/2023 2:06 PM CART ATTENDANT This lab is being obtained as part of a Kidney transplant evaluation, is time sensitive, and should only be drawn during the evaluation visit at [facility] 3C Lab. Leta Rudolph MD LAB MICROBIOLOGY - GENERAL ORDERABLES Final Result [facility] [place] [address] * Colonoscopy (10/27/2022 10:35 AM CDT) Anatomical Region Laterality Modality Other Historical Provider ENDOSCOPY PROCEDURES Tori l Result from Last 3 Months or Most Recently Relevant to Health Maintenance Insurance IDPA U[employer] MEDICARE [facility] Address: [address] [address] [place] [address] [facility] MEDICARE [facility] Address: [address] [address] [place] [address] [facility] MED[facility] Address: [address] [address] [place] [address] IDPA Advance Directives For more information, please contact: [phone] * Full Code (Latest Code Status on File) Date Activated Date Inactivated Comments 08/15/2024 7:16 PM 08/16/2024 4:50 PM * Full Code Date Activated Date Inactivated Comments 06/25/2024 1:35 AM 06/27/2024 10:47 PM * Full Code Date Activated Date Inactivated Comments 10/17/2023 10:40 AM 10/19/2023 5:30 PM Care Teams Deli Worker Relationship Specialty Start Date End Date Libby Glass NP [address] [facility] [address] [place] [address] PCP - General Internal Medicine 10/27/22 Chaparro Holcomb MD [address] [facility] [address] [place] [address] Referring Physician Nephrology 10/27/22 Leny Mares, RN [address] [address] [employer] 02/15/23 [facility] 08/23/23
--- OUTSIDE RECORDS SUMMARY | 2025-01-11 22:09 | XMS_ITS ---
Author Organization [facility] [address] Address [address] [place] [address] Care Team Providers Care Film Splicer Name Role Phone Libby Glass NP Primary Care Provider Chaparro Holcomb MD Unavailable [phone] Leny Mares RN Unavailable Transplant Episode Kidney Candidate [facility] ([place], [place]) [facility] Center waitlisted on 11/02/2023 Marked as Inactive on 06/25/2024 Reason: 07 - Temporarily Too Sick Kidney CoordinatorRefaby Mares RN Email: N/A Scores Score Value Updated Exceptions/Reas ons CPRA Not available EPTS (Calc) 44 01/11/2025 [place] Organ Diagnosis Organ Primary Contributory Kidney Polycystic Kidneys Care Team Name Role Phone Fax Email Leny Mares RN Kidney Coordinator [phone] N/A Jyoti Cardoso Primary Member Of The Legislative Assembly N/A N/A N/A Chaparro Holcomb MD Referring Physician [phone] N/A Rhea Harrington Occupational Safety And Health Manager [phone] N/A N/A Events Pre-Transplant Referred: 01/11/2023 Evaluation began: 04/09/2023 Committee: 10/31/2023 UNOS qualified: 05/19/2022 Center waitlisted: 11/02/2023 Dialysis History Dialysis History Start End Type Comments Center 05/19/2022 In-center Hemodialysis [facility] Dialysis Center Information Center Phone Fax Address [facility] [phone] [address] [facility] [address]
--- OUTSIDE RECORDS SUMMARY | 2025-01-11 22:09 | XMS_ITS ---
Author Organization [facility] [address] Address [address] [place] [address] Care Team Providers Care Manufacturing Production Technician Name Role Phone Libby Glass NP Primary Care Provider [phone] Chaparro Holcomb MD Unavailable [phone] Leny Mares RN Unavailable Dialysis Access [...] HEPATITIS C ANTIBODY Routine 05/30/2023 12:42 PM MAGNETIC RESONANCE IMAGING COORDINATOR End stage renal disease (HCC) COLONOSCOPY Routine [...] if any changes. Keep scheduled appointment for Keri Other chest pain 06/24/2024 Assessment & Plan [...] va. Assessment & Plan (06/27/2024 4:28 PM MAGNETIC RESONANCE IMAGING COORDINATOR): Unclear etiology for chest pain. Initial workup [...] dc Assessment & Plan (06/27/2024 4:01 PM MAGNETIC RESONANCE IMAGING COORDINATOR): On home Bumex 2mg, nifedipine, Imdur, hydral [...] phoslo Assessment & Plan (06/27/2024 4:01 PM MAGNETIC RESONANCE IMAGING COORDINATOR): On schedule as outpatient - 06/26 iHD completed - Local [facility]ialysis Center [facility] in [facility]. - Nephrology ESRD Team following Immunizations Immunization Administration Dates Next Due Hep B Vaccine 11/01/2023, 3,08/25/2022, 3 Influenza, Unspecified 03/21/2024,2022,06/04/2022(Deferred: Patient Refused),03/18/2022 PPD TEST 10/09/2023, 3,06/21/2022, 2 Pneumococcal Polysaccharide PPV23 11/14/2022 Social History Tobacco Use Types Packs/Day Years Used Date Smoking Tobacco: Never Smokeless Tobacco: Never Tobacco Cessation:Counseling Given: Not Answered [facility] Utilities Answer Date Recorded In the past 12 months has th e electric, gas, oil, or water company threatened [...] often do you attend chur ch or jainism services? 1 to 4 times per year 06/13/2024 Do you belong to any clubs o r organizations such as holiness groups, unions, fraternal or athletic groups, or [...] place to sleep or slept in a prison (including now)? No 06/12/2023 Housing Stability Vital Sign Answer Nikolai e Recorded In the last 12 months, was t here a time when you were not able to pay the mortgage or rent on time? No 06/13/2024 In the past 12 months, how m any times have you moved where you were living? 1 06/13/2024 At any time in the past 12 m [facility], were you homeless or living in a prison (including now)? No 06/13/2024 Personal Safety Answer Date Recorded Have you ever been in or are you currently in a harmful physical or emotional relationship or is someone making you feel afraid or unsafe? Denies 08/15/2024 Sex and Gender Information Value Date Recorded Sex Assigned at Not on file Legal Sex Male 2:12 AM MAGNETIC RESONANCE IMAGING COORDINATOR Gender Identity Not on file Sexual Orientation [...] 24.06 08/15/2024 6:20 PM CDT Results * SCAN - RADIOLOGY/IMAGING (12/23/2024) Anatomical [...] Anatomical Region Laterality Modality Other Libby Glass DIRECTOR OF RELIGIOUS ACTIVITIES Edited Result - Final * HLA Antibody Screen by PRA or SAB per Schedule (Class I and Class II) (12/03/2024 10:00 AM CDT) Blood 12/03/2024 10:0 0 AM CDT Narrative HISTOTRAC - MAGNETIC RESONANCE IMAGING COORDINATOR Sample received in lab. PRA Screen ordered. [...] a method developed and validated by the [facility] HLA laboratory based on an FDA- approved IVD kit (LABScreen PRA, [employer], [place], [place]). Interpretive comments: The percentage of beads with MFI > 750 is reported, which indicates the percentage of donor population estimated to be incompatible with the patient tested. PRA > 0% is consistent with alloimmunization to HLA. Testing performed at the [facility] HLA Laboratory, [address] [place] [address], 5th floor, [place], [address]. CLIA # [id number]. Donna Paulson, Ph.D., [employer], HLA Laboratory Lazaro Hernandez M.D., Ph.D., Collection Agent, HLA Laboratory Tammy Estevez, Ph.D., CLIA Collection Agent, [facility] Clinical Laboratories Current methodology and interpretive comments last revised on 09/26/2017. us Wayne Abraham MD LAB BLOOD ORDERABLES Final Resu lt Performing Organization Address [facility] de Phone Number HISTOTRAC * HLA Antibody Screen by PRA or SAB per Schedule (Class I and Class II) (11/03/2024 10:00 AM CDT) Blood 11/03/2024 10:0 0 AM CDT Narrative HISTOTRAC - MAGNETIC RESONANCE IMAGING COORDINATOR Sample received in lab and stored. No testing performed at this time. Wayne Abraham MD LAB BLOOD ORDERABLES Final Resu lt Performing Organization Address [facility] de Phone Number HISTOTRAC * HLA Antibody Screen by PRA or SAB per Schedule (Class I and Class II) (10/15/2024 10:00 AM CDT) Blood 10/15/2024 10:0 0 AM CDT Narrative HISTOTRAC - MAGNETIC RESONANCE IMAGING COORDINATOR Sample received in lab. PRA Screen ordered. Wayne Abraham MD LAB BLOOD ORDERABLES Final Resu lt Performing Organization Address [facility] de Phone Number HISTOTRAC * [...] a method developed and validated by the [facility] HLA laboratory based on an FDA- approved IVD kit (LABScreen PRA, [employer], [place], [place]). Interpretive comments: The percentage of beads with MFI > 750 is reported, which indicates the percentage of donor population estimated to be incompatible with the patient tested. PRA > 0% is consistent with alloimmunization to HLA. Testing performed at the [facility] HLA Laboratory, [address] [place] [address], 5th floor, [place], [address]. [place] # [id number]. Donna Paulson, Ph.D., [employer], HLA Laboratory Lazaro Hernandez M.D., Ph.D., Collection Agent, HLA Laboratory Tammy Estevez, Ph.D., CLIA Collection Agent, [facility] Clinical Laboratories Current methodology and interpretive comments last revised on 09/26/2017. Wayne Abraham MD LAB BLOOD ORDERABLES Final Resu lt Performing Organization Address City/[facility]/ZIP Co de Phone Number HISTOTRAC * PSA screen (01/09/2024 11:10 AM CDT) PSA 0.82 < OR = 4.00 ng/mL [facility] Comment: The total PSA value from this assay system is standardized against the WHO standard. The test result will be approximately 20% lower when compared to the equimolar-standardized total PSA (Osman Slayton). Comparison of serial PSA results should be [...] ORDERABLES Final Re sult Performing Organization Address City/[facility]/ZIP Co de Phone Number QUE[facility] [address] [place] [address] * Hepatitis C antibody Blood (05/30/2023 12:42 PM MAGNETIC RESONANCE IMAGING COORDINATOR) Hep C Ab Nonreactive Nonreactive [facility] Comment:Antibodies to HCV no t detected. Does NOT exclude the possibility of recent exposure to HCV. Current interpretive data was last revised on 22 Blood 05/30/2023 12:4 2 PM MAGNETIC RESONANCE IMAGING COORDINATOR 05/30/2023 1:22 PM MAGNETIC RESONANCE IMAGING COORDINATOR Narrative [facility] - 05/30/2023 2:06 PM MAGNETIC RESONANCE IMAGING COORDINATOR This lab is being obtained as part of a Kidney transplant evaluation, is time sensitive, and should only be drawn during the evaluation visit at [facility] 3CAM Lab. Leta Rudolph MD LAB MICROBIOLOGY - GENERAL ORDERABLES Final Result [facility] One [facility] Department [place] [address] * Colonoscopy (10/27/2022 10:35 AM CDT) Anatomical Region Laterality Modality Other us Historical Provider ENDOSCOPY PROCEDURES Tori l Result from Last 3 Months or Most Recently Relevant to Health Maintenance
--- OUTSIDE RECORDS SUMMARY | 2025-01-11 22:09 | XMS_ITS | Encounter Summary ---
Author Organization [facility] Healthcare Address [address] [place] [address] Care Team Providers Care Butcher Or Smallgoods Maker Name Role Phone Libby Glass NP Primary Care Provider Chaparro Holcomb MD Unavailable [phone] Leny Mares RN Unavailable Reason for Visit * Reason Onset Date Comments Medical Question/Miscellaneous 01/02/2025 Encounter Details Date Type Department Care Team (Late st Contact Info) Description 01/02/2025 Telephone [facility] Family Medicine [address] [facility] [address] [place] [address] Libby Glass NP [address] [facility] [address] [place] [address] Medical Question/Miscellaneous Social History Tobacco Use Types Packs/Day Years Used Date Smoking Tobacco: Never Smokeless Tobacco: Never [facility] Utilities Answer Date Recorded In the past 12 months has [employer] electric, gas, oil, or water company threatened [...] week 06/13/2024 How often do you attend [facility] or mormon services? 1 to 4 times per year 06/13/2024 Do you belong to any clubs o r organizations such as bahai groups, unions, fraternal or athletic groups, or [...] place to sleep or slept in a mcfp (including now)? No 06/12/2023 Housing Stability Vital Sign Answer Nikolai e Recorded In the last 12 months, was t here a time when you were not able to pay the mortgage or rent on time? No 06/13/2024 In the past 12 months, how m any times have you moved where you were living? 1 06/13/2024 At any time in the past 12 m [facility], were you homeless or living in a mcfp (including now)? No 06/13/2024 Personal Safety Answer Date Recorded Have you ever been in or are you currently in a harmful physical or emotional relationship or is someone making you feel afraid or unsafe? Denies 08/15/2024 Sex and Gender Information Value Date Recorded Sex Assigned at Not on file Legal Sex Male 2:12 AM OXYACETYLENE WELDER Gender Identity Not on file Sexual Orientation Not on file documented as of this encounter Miscellaneous Notes * Telephone Encounter - Libby Glass NP - 01/02/2025 4:02 PM CDT Noted * Telephone Encounter - Nicolasa Alamo - 01/02/2025 11:17 AM CDT Medical Question/Miscellaneous Caller???s Concern: Giuliana with [facility] calling to inform DEMI Glass that pt has not taking his bumetanidemedication in 3 weeks, says that he did not have transportation to the pharmacy. Giuliana states that she offered to contact pharmacy with the pt on the line and offered prescriptions services but pt declined. Does message need to be routed? Yes-FYI Only documented in this encounter Plan of Treatment Not on file documented as of this encounter Visit Diagnoses Not on filedocumented in this encounter Care Teams Butcher Or Smallgoods Maker Relationship Specialty Start Date End Date Libby Glass NP [address] [facility] [address] [place] [address] PCP - General Internal Medicine 10/27/22 Chaparro Hoclomb MD [address] [facility] [address] [place] [address] Referring Physician Nephrology 10/27/22 Leny Mares, RN [address] [facility] [address] [place], [place] [id number] Pmo Lead 02/15/23 Dental [facility] Dentist 08/23/23 documented as of this encounter
--- OUTSIDE RECORDS SUMMARY | 2025-01-11 22:09 | XMS_ITS | Encounter Summary ---
Author Organization [facility] Healthcare Address [address] [place] [address] Care Team Providers Care Buying Intern Name Role Phone Libby Glass NP Primary Care Provider [phone] Chaparro Holcomb MD Unavailable [phone] Leny Mares RN Unavailable Ingris Hodgson MA Unavailable Encounter Details Date Type Department Care Team (Late st Contact Info) Description 12/17/2024 [place] Only [facility] [place] [address] [place] [id number] Scanning, Provider Social History Tobacco Use Types Packs/Day Years Used Date Smoking Tobacco: Never Smokeless Tobacco: Never [facility] Utilities Answer Date Recorded In the past 12 months has [employer] electric, gas, oil, or water company threatened [...] often do you attend chur ch or pentecostalism services? 1 to 4 times per year 06/13/2024 Do you belong to any clubs o r organizations such as pentecostal groups, unions, fraternal or athletic groups, or [...] place to sleep or slept in a fpc (including now)? No 06/12/2023 Housing Stability Vital [...] time in the past [address] [facility], were you homeless or living in a fpc (including now)? No 06/13/2024 Personal Safety Answer Date Recorded Have you ever been in or are you currently in a harmful physical or emotional relationship or is someone making you feel afraid or unsafe? Denies 08/15/2024 Sex and Gender Information Value Date Recorded Sex Assigned at Not on file Legal Sex Male 2:12 AM PATTERN RULER Gender Identity Not on file Sexual Orientation Not on file documented as of this encounter Plan of Treatment Not on file documented as of this encounter Procedures Procedure Name Priority Date/Time Associated Diagnosis Comments SCAN - RADIOLOGY/IMAGING 12/16/2024 documented in this encounter Results * SCAN - RADIOLOGY/IMAGING (12/16/2024) Anatomical Region Laterality Modality Other us Provider Scanning Edited Result - Final documented in this encounter Visit Diagnoses Not on filedocumented in this encounter Care Teams Buying Intern Relationship Specialty Start Date End Date Libby Glass FORKLIFT PICKER [address] [facility] [address] [place] [address] PCP - General Internal Medicine 10/27/22 Chaparro Holcomb MD [address] [facility] [address] [place] [address] Referring Physician Nephrology 10/27/22 Leny Mares, TERRI [address] [facility] [address] [place] [address] Stand In 02/15/23 Ingris Hodgson MA [address] [place] [address] [address] [place] [address] ACO Care Ancillary Specialist 12/25/24 12/25/24 Dental [facility] Dentist 08/23/23 documented as of this encounter
[2025-01-11 22:24] LABS: Alanine Aminotransferase 16 U/L (6-50); Albumin Level 4.1 g/dL (3.5-5.1); Alkaline Phosphatase 58 U/L (38-126); Anion Gap 18 mmol/L (4-12); Aspartate Amino Transferase 24 U/L (17-59); Bilirubin,Total 0.4 mg/dL (0.2-1.3); Blood Urea Nitrogen 116 mg/dL (9-20); Calcium 7.7 mg/dL (8.4-10.2); Carbon Dioxide 16 mmol/L (22-30); Chloride 106 mmol/L (98-107); Estimated CRCL calculation 5 ml/min; Estimated Glomerular Filt Rate 3; Glucose 133 mg/dL (65-110); Potassium 5.6 mmol/L (3.4-5.0); Sodium 140 mmol/L (137-145); Total Protein 7.4 g/dL (6.3-8.2)
[2025-01-11] MEDS: DEXTROSE 50% 25 GM/50 ML SYRINGE IV PUSH (22:48)
[2025-01-11] MEDS: INSULIN HUMAN REGULAR (*BKC) 100 UNITS/ML IV PUSH (22:48)
[2025-01-11] MEDS: SODIUM ZIRCONIUM CYCLOSILICATE 10 GM POWD.PACK PO (22:49)
[2025-01-11] MEDS: CALCIUM GLUCONATE 1,000 MG/10 ML VIAL 1000 MG IV PUSH (22:49)
[2025-01-11] MEDS: SODIUM BICARBONATE 8.4% 50 MEQ/50 ML SYRINGE IV PUSH (22:49)
--- NOTE | 2025-01-11 22:49 | ED.SOB ---
HPI - SOB/Dyspnea General Chief Complaint: Shortness of Breath/Dyspnea Stated Complaint: sob Time Seen by Provider: 01/11/25 21:49 History of Present Illness HPI Narrative: 59-year-old male with history of ESRD on hemodialysis Sunday, Sunday, Sunday, CHF, hypertension and anemia. Patient presents to the emergency department with shortness of breath complaints. He states he has not gone to dialysis for over a week due to ?social issues ?does not elaborate further. Patient is well-known to this facility and was recently here several weeks ago for evaluation of his left upper extremity AV fistula. He was transferred to a hospital with vascular capabilities but according to the patient states that they just evaluated him with scans and saw no abnormalities so they discharged home. He has since use the AV fistula for regular dialysis sessions but has stopped going for last week. Today is complaining of shortness of breath and some worsening swelling in his legs and distension is abdomen. No pain, denies any exertional chest discomfort chest pain. No nausea, vomiting, fever, chills. He was otherwise in his normal state of health. Related Data Home Medications ?Medication ?Instructions ?Recorded ?Confirmed ?Last Taken ?Type amino acids-protein hydrolysate 16 30 ml PO DAILY 12/10/24 12/10/24 Unknown History gram-100 kcal/30 mL oral liquid (Liquacel) cholecalciferol (vitamin D3) 250 250 mcg PO DAILY 12/10/24 12/10/24 Unknown History mcg (10,000 unit) capsule isosorbide mononitrate 30 mg 30 mg PO TID 12/10/24 12/10/24 Unknown History tablet,extended release 24 hr omega [id number]-yqn-[id number]-fish oil 900 1 cap PO DAILY 12/10/24 12/10/24 Unknown History mg-1,400 mg capsule,delayed release Allergies Allergy/AdvReac Type Severity Reaction Status Date / Time No Known Allergies Allergy Verified 01/11/25 21:30 Review of Systems Review of Systems: As reviewed above in HPI [facility] Past Medical History Medical History Cardiomyopathy Acute systolic heart failure Acute diastolic CHF (congestive heart failure) Anemia of chronic disease Flash pulmonary edema Adult polycystic kidney disease Surgical History Surgical History No significant past surgical history Family History Family History Sibling Heart disease Fraternal twin brother had CABG X4. History of quadruple bypass Sibling Cancer Sibling ESRD on dialysis Mother Old age of old age Cerebrovascular accident Father Heart disease around 60 y.o. of uncertain type of heart disease Social History Social History Social History: Negative for alcohol cigarettes or tobacco. 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 His brother Gavino romero is the poa. He has One child who is an adult daughter. He is . Code status full code Smoking status: Never smoker Second hand tobacco smoke exposure: No Alcohol intake: never Substance use: never Substance use type: does not use Do You Feel Safe in your Home?: Yes Lack of Transportation: YES Lack of Food: Never True Current Housing: I Have Housing Concerned About Future Housing: No Difficulty Paying Gas/Electric Bills: No Difficulty Paying for Meds: No Currently Unemployed: No Education: Master's Degree or Higher Difficulty w/ Childcare or Family Care: No Spiritual care concerns: No Exam Narrative: GENERAL: [Well-appearing, well-nourished, and in no acute distress.] HEAD: [Normocephalic, atraumatic.] EYES: [PERRLA and EOMI.] ENT: Nares clear, no rhinorrhea or epistaxis. Mucous membranes moist. NECK: Supple. CHEST: Mild rales in the lung bases but no respiratory distress or tachypnea HEART: [Regular rate and rhythm]. No murmur heard. [Normal peripheral pulses.] ABDOMEN: Mildly distended abdomen, [nontender], [No rigidity or guarding] EXTREMITIES: Normal range of motion. 2+ pitting edema. Left upper extremity AV fistula with palpable thrill. Multiple pseudoaneurysms without any overlying skin breakdown or deformity. No signs of tenderness, fluctuance, purulence or infection. 2+ distal radial pulses and warm extremity good capillary refill. SKIN: Warm, dry, no rash. NEURO: [No focal deficits]. Alert and oriented [x3.] PSYCH: [Normal mood and affect.] Course Vital Signs Vital signs: Vital Signs Temperature 36.6 C 01/11/25 21:22 Pulse Rate 84 01/11/25 21:22 Respiratory Rate 17 01/11/25 21:22 Blood Pressure 161/96 H 01/11/25 21:22 Pulse Oximetry 100 01/11/25 21:22 Oxygen Delivery Room Air 01/11/25 21:22 Temperature 36.6 C 01/11/25 21:22 Pulse Rate 86 01/11/25 23:31 Respiratory Rate 19 01/11/25 23:31 Blood Pressure 159/95 H 01/11/25 23:31 Pulse Oximetry 100 01/11/25 23:31 Oxygen Delivery Room Air 01/11/25 21:35 MDM - SOB/Dyspnea MDM Narrative Medical decision making narrative: 59-year-old male with history of ESRD on hemodialysis Sunday, Sunday, Sunday, CHF, hypertension and anemia. Patient presents to the emergency department with shortness of breath complaints. He states he has not gone to dialysis for over a week due to ?social issues ?does not elaborate further. Patient is well-known to this facility and was recently here several weeks ago for evaluation of his left upper extremity AV fistula. He was transferred to a hospital with vascular capabilities but according to the patient states that they just evaluated him with scans and saw no abnormalities so they discharged home. He has since use the AV fistula for regular dialysis sessions but has stopped going for last week. Today is complaining of shortness of breath and some worsening swelling in his legs and distension is abdomen. No pain, denies any exertional chest discomfort chest pain. No nausea, vomiting, fever, chills. He was otherwise in his normal state of health. Patient on examination has a intact left AV fistula with palpable thrill, 2+ pitting edema in mildly distended abdomen. He is complaining of shortness of breath with some mild rales in the bases of his lungs. Clinically appears to be slightly volume overloaded but saturating well on room air without any fever, tachypnea, tachycardia or significant blood pressure concerns. Given his multiple missed dialysis sessions likely is volume overloaded but could also have some electrolyte derangements or potential infectious process such as pneumonia but less likely. He is not complaining of any pain which is reassuring that no signs of ACS at this time. EKG, chest x-ray and laboratory studies were ordered. Patient is hyperkalemic at 5.6 with acute on chronic kidney injury with BUN of 118, elevated creatinine of 18. He is not encephalopathic and awake alert oriented which is reassuring but he does require dialysis and treatment PD was given hyperkalemia cocktail including insulin, dextrose, calcium, Lokelma. Discussed with the on-call data integrity analyst Dr. De La Paz to initiate dialysis for tomorrow and patient will be admitted to the hospitalist on telemetry bed for observation admission. Medical Records Attestation: I reviewed the patient's medical records. Lab Data Attestation: I reviewed the patient's lab results. 01/11/25 21:53 01/11/25 21:53 Labs: Lab Results 01/11/25 Range/Units 21:53 WBC 4.0 L (4.5-10.0) K/mm3 RBC 3.34 L (4.6-6.20) M/mm3 Hgb 10.0 L (14.0-18.0) g/dL Hct 30.8 L (42.0-52.0) % MCV 92.2 (80-100) fl MCH 29.9 (26-34) pg MCHC 32.5 (32-36) g/dl RDW 17.3 H (11.5-14.5) % Plt Count 156 (150-375) k/mm3 MPV 9.4 (7.4-10.4) fl Immature Gran % (Auto) 0.2 (0-0.5) % Neut % (Auto) 68.7 (45.5-73.1) % Lymph % (Auto) 19.7 (18.3-44.2) % [place] % (Auto) 8.7 H (2.6-8.5) % Eos % (Auto) 2.5 (0-4.4) % Baso % (Auto) 0.2 (0.2-1.2) % Lymph # (Auto) 0.79 L (0.9-3.2) K/mm3 [place] # (Auto) 0.4 (0.1-0.6) K/mm3 Eos # (Auto) 0.1 (0-0.3) K/mm3 Baso # (Auto) 0.0 (0.0-0.1) K/mm3 Abs Immat Gran (auto) 0.01 (0.00-0.031) K/mm3 Absolute Neuts (auto) 2.8 (1.3-6.7) K/mm3 Absolute Nucleated RBC 0.000 (0.0-0.012) K/mm3 Nucleated RBC % 0.0 (0.0-0.2) % Sodium 140 (137-145) mmol/L Potassium 5.6 H (3.4-5.0) mmol/L Chloride 106 (98-107) mmol/L Carbon Dioxide 16 L (22-30) mmol/L Anion Gap 18 H (4-12) mmol/L BUN 116 H* D (9-20) mg/dL Creatinine 18.03 H (0.7-1.3) mg/dL Estim Creat Clear Calc 5 ml/min Estimated GFR 3 L (59 - ) Glucose 133 H (65-110) mg/dL Calcium 7.7 L (8.4-10.2) mg/dL Total Bilirubin 0.4 (0.2-1.3) mg/dL AST 24 (17-59) U/L ALT 16 (6-50) U/L Alkaline Phosphatase 58 (38-126) U/L Total Protein 7.4 (6.3-8.2) g/dL Albumin 4.1 (3.5-5.1) g/dL Imaging Data Attestation: I personally reviewed and interpreted this imaging study as follows: My impression: Chest x-ray per my interpretation shows no large consolidations, pleural effusions or cardiomegaly. Appears similar in appearance to previous x-rays. ECG Data EKG #1: Attestation: I personally reviewed and interpreted this ECG as follows: ECG completion date: 01/11/25 ECG completion time: 21:45 Prior ECG tracings: available for review Interpretation: Sinus rhythm, QTC 450, QRS 91, DE interval 163. No ST segment elevations, depressions or acute inversions. No significant oval change compared to prior EKG. No evidence of hyperkalemic T-waves. Critical Care Time Critical Care Time Critical Care Time: Yes Total Critical Care Time: 35 Discharge Plan Discharge Clinical Impression: Acute hyperkalemia, Acute kidney injury superimposed on CKD, End-stage renal disease (ESRD) Patient Disposition: Still a Patient Condition: Stable Time of Disposition: 23:58
--- NOTE | 2025-01-11 23:06 | PC.NURSE ---
Patient given sandwich and water upon request.
--- NOTE | 2025-01-11 23:41 | ADMGEN ---
This patient, Piter Donahue, was admitted to [facility]. Patient/family oriented to hospital policies and general routines including ID bracelet, bed and alarms, visiting hours, pain management, procedures, bathroom and other care routines, personal items, smoking policy, room service/diet, and visiting hours. Information on how to activate the Rapid Response Team has been discussed. Patient/Family are encouraged to report perceived risks to care and to ask questions if they do not understand what they are told or what they should do.
[2025-01-12] VITALS (27 sets, daily range): BP systolic 138–176; BP diastolic 84–101; PULSE 79–98; RESP 16–20; TEMP 35.8–37.2; O2SAT 97–100; BMI 26.7
--- NOTE | 2025-01-12 00:34 | P.HP_ITS ---
H&P: HPI History of Present Illness Date/Time: 01/12/25 00:34 Chief Complaint: Dyspnea Narrative: This is a 59-year-old male patient, well known to this facility with past medical history of polycystic kidney disease causing end-stage renal disease on hemodialysis Sunday schedule, cardiomyopathy, heart failure who presents to the emergency room with complaints of having missed dialysis for 1 w unga. Patient reports the last time he was dialyzed with now 9 days ago, having had missed a full 3 sessions of dialysis. Patient reports this is secondary to transportation issues. Patient reports yesterday he started to feel slightly dyspneic in it has progressed prompting his presentation to the emergency room. Patient denies any chest pain, denies any peripheral edema and has no other acute complaints other than needing to be dialyzed. In the emergency room workup was performed that consisted of labs and imaging. CBC showing chronic anemia with hemoglobin of 10.0. This is at patient's baseline. Patient's metabolic panel however does show hyperkalemia with potassium of 5.6 and renal function with BUN of 116 and creatinine of 18.03. Calcium is 7.7 with albumin of 4.1. EKG showing normal sinus rhythm 79 beats per minute without any ectopy or ischemia and no changes as noted when compared to EKG from December 23, 2024. Vital signs were stable. He is not requiring any supplemental oxygen. Chest x- ray was negative for any acute cardiopulmonary abnormality. In the emergency room patient was given calcium gluconate, Lokelma, 5 units of regular insulin with 25 g of dextrose and sodium bicarb. He is being admitted in the current setting with a consult to Nephrology for dialysis today. Review of Systems Review of Systems: All systems reviewed & are unremarkable except as noted in HPI and below [facility] Past Medical History Medical History (Updated 01/12/25 @ 00:45 by [facility]) Hyperkalemia Cardiomyopathy Acute systolic heart failure Acute diastolic CHF (congestive heart failure) Anemia of chronic disease Flash pulmonary edema Adult polycystic kidney disease Surgical History Surgical History No significant past surgical history Family History Family History Sibling Heart disease Fraternal twin brother had CABG X4. History of quadruple bypass Sibling Cancer Sibling ESRD on dialysis Mother Old age of old age Cerebrovascular accident Father Heart disease around 60 y.o. of uncertain type of heart disease Social History Social History Social History: Negative for alcohol cigarettes or tobacco. 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 His brother Gavino romero is the poa. He has One child who is an adult daughter. He is . Code status full code Smoking status: Never smoker Second hand tobacco smoke exposure: No Alcohol intake: never Substance use: never Substance use type: does not use Do You Feel Safe in your Home?: Yes Lack of Transportation: YES Lack of Food: Never True Current Housing: I Have Housing Concerned About Future Housing: No Difficulty Paying Gas/Electric Bills: No Difficulty Paying for Meds: No Currently Unemployed: No Education: Master's Degree or Higher Difficulty w/ Childcare or Family Care: No Spiritual care concerns: No Meds Home Medications and Allergies Home Medications ?Medication ?Instructions ?Recorded ?Confirmed ?Type aspirin 81 mg tablet,delayed 81 mg PO QAM #30 tabs 05/27/22 01/11/25 Rx release bumetanide 2 mg tablet 2 mg PO DAILY #60 tabs 05/27/22 01/11/25 Rx calcium acetate(phosphat bind) 667 667 mg PO TID #90 tabs 05/27/22 01/11/25 Rx mg tablet hydralazine 100 mg tablet 100 mg PO TID #270 tabs 03/12/24 01/11/25 Rx amino acids-protein hydrolysate 16 30 ml PO DAILY 12/10/24 01/11/25 History gram-100 kcal/30 mL oral liquid (Liquacel) cholecalciferol (vitamin D3) 250 250 mcg PO DAILY 12/10/24 01/11/25 History mcg (10,000 unit) capsule isosorbide mononitrate 30 mg 30 mg PO TID 12/10/24 12/10/24 History tablet,extended release 24 hr omega 1-ebw-qxb-fish oil 900 1 cap PO DAILY 12/10/24 01/12/25 History mg-1,400 mg capsule,delayed release atorvastatin 40 mg tablet 40 mg PO DAILY #60 tabs 12/16/24 01/11/25 Rx nifedipine 90 mg tablet,extended 90 mg PO DAILY #60 tabs 12/16/24 01/12/25 Rx release 24 hr albuterol sulfate 90 mcg/actuation 1 inh inhalation QID PRN shortness 12/22/24 01/11/25 Rx aerosol inhaler (Ventolin HFA) of breath or wheezing #8.5 grams bisacodyl 5 mg tablet,delayed 5 mg PO DAILY PRN Constipation #30 12/22/24 01/11/25 Rx release (Laxative (bisacodyl)) tabs compressor, for nebulizer #1 ea 12/22/24 01/12/25 Rx Allergies Allergy/AdvReac Type Severity Reaction Status Date / Time No Known Allergies Allergy Verified 01/11/25 21:30 Vital Signs Vital Signs - 24 hr 01/11/25 21:22 01/11/25 21:26 01/11/25 21:27 Temperature 97.9 F Pulse Rate 84 87 85 Respiratory Rate 17 27 H 20 Blood Pressure 161/96 H 161/96 H Pulse Oximetry 100 100 100 Oxygen Delivery Room Air 01/11/25 21:30 01/11/25 21:31 01/11/25 21:35 Temperature Pulse Rate 86 84 Respiratory Rate 21 H 17 Blood Pressure 157/99 H Pulse Oximetry 100 100 100 Oxygen Delivery Room Air 01/11/25 21:45 01/11/25 21:56 01/11/25 22:00 Temperature Pulse Rate 81 81 82 Respiratory Rate 19 23 H Blood Pressure 158/98 H Pulse Oximetry 100 100 Oxygen Delivery 01/11/25 22:01 01/11/25 22:15 01/11/25 22:30 Temperature Pulse Rate 80 79 85 Respiratory Rate 16 21 H 21 H Blood Pressure 154/95 H Pulse Oximetry 100 100 100 Oxygen Delivery 01/11/25 22:31 01/11/25 22:45 01/11/25 23:00 Temperature Pulse Rate 81 84 81 Respiratory Rate 24 H 21 H 27 H Blood Pressure 159/93 H Pulse Oximetry 100 100 100 Oxygen Delivery 01/11/25 23:01 01/11/25 23:31 01/11/25 23:50 Temperature 98.1 F Pulse Rate 82 86 87 Respiratory Rate 23 H 19 17 Blood Pressure 159/95 H 149/94 H Pulse Oximetry 100 100 100 Oxygen Delivery Exam Const: General: comfortable and no acute distress Other: 59-year-old male patient sitting on stre tcher at this time in no acute distress. He has no complaints. HENMT: Face/Nose/Sinus: Normal nares present Mouth: Yes moist mucous membranes Eyes: General: appearance normal, both eyes and all related structures Sclera: sclerae normal Pupils: Equal, round and reactive pupils present Neck: Neck: supple and no JVD Carotids: no bruits Lymphatic: lymphadenopathy not noted Resp: Effort & Inspection: normal respiratory effort Auscultation: diminished lung sounds (Bilateral bases) Cardio: Rate: regular rate Rhythm: regular rhythm Heart sounds: no gallops, no murmurs and no rubs GI: GI Palp: Yes Soft to palpation and No Tenderness to palpation present (GI) Auscultation: normal bowel sounds Skin: General skin exam: normal color, no rashes or lesions noted and no erythema Lesions: no lesions noted Rashes: no rashes noted Wounds: no wounds Neuro: Speech: normal speech Motor exam (neuro): 5/5 motor strength present throughout and Normal motor muscle tone present throughout Sensory Exam: normal sensation Extrem: General: normal to inspection, no edema and no pedal edema Psych: Mental Status: mental status grossly normal Affect: normal affect H&P: Results Labs Labs: Short CBC 01/11/25 Range/Units 21:53 WBC 4.0 L (4.5-10.0) K/mm3 Hgb 10.0 L (14.0-18.0) g/dL Hct 30.8 L (42.0-52.0) % Plt Count 156 (150-375) k/mm3 BMP 01/11/25 21:53 Sodium 140 Potassium 5.6 H Chloride 106 Carbon Dioxide 16 L BUN 116 H* D Creatinine 18.03 H Glucose 133 H Calcium 7.7 L Liver Function 01/11/25 Range/Units 21:53 Total Bilirubin 0.4 (0.2-1.3) mg/dL AST 24 (17-59) U/L ALT 16 (6-50) U/L Alkaline Phosphatase 58 (38-126) U/L Albumin 4.1 (3.5-5.1) g/dL Assessment and Plan Assessment and plan (1) ESRD (end stage renal disease) on dialysis: Code(s): N18.6 - End stage renal disease; Z99.2 - Dependence on renal dialysis Status: Acute Assessment and Plan: * Acute on chronic. * Patient missed 3 dialysis sessions. * Admit for dialysis. * Consult nephrology (2) SOB (shortness of breath): Code(s): R06.02 - Shortness of breath Status: Acute Assessment and Plan: * Secondary to #1. And missing dialysis. * Chest x-ray is clear. * Patient does not appear to be in fluid overload. * Monitor and trend labs and vitals (3) Acute hyperkalemia: Code(s): E87.5 - Hyperkalemia Status: Acute Assessment and Plan: * Potassium elevated at 5.6 on arrival. * Patient received Lokelma, 5 units of regular insulin with 25 g of dextrose and sodium bicarb in ER. * Recheck stat potassium * Trend labs and vital signs * Telemetry * Ultimately patient needs to be dialyzed. (4) Medical non-compliance: Code(s): Z91.199 - Patient's noncompliance with other medical treatment and regimen due to unspecified reason Status: Acute Assessment and Plan: * Likely chronic in nature, however patient states he has had transportation issues for the past week not allowing him to get to dialysis. (5) Acute on chronic combined systolic and diastolic heart failure: Code(s): I50.43 - Acute on chronic combined systolic (congestive) and diastolic (congestive) heart failure Status: Chronic Assessment and Plan: * Patient does not appear to be in decompensated heart failure exacerbation. Last echo was reviewed from December 10, 2024 that showed a severe left ventricular hypertrophy ejection fraction of 65-70%. Quality VTE Prophylaxis VTE prophylaxis: pharmacologic ordered Hospitalist MIPS Advance Care Plan I have confirmed that the patient's Advanced Care Plan is present, code status is documented, or surrogate decision maker is listed in patient medical record.: Yes Medication Reconciliation I have utilized all available resources to obtain, update and review the patients current medications (includes all prescriptions, OTC, herbals, cannabis, and nutritional supplements).: Yes
[2025-01-12 01:27] LABS: Anion Gap 15 mmol/L (4-12); Blood Urea Nitrogen 109 mg/dL (9-20); Calcium 7.8 mg/dL (8.4-10.2); Carbon Dioxide 17 mmol/L (22-30); Chloride 106 mmol/L (98-107); Glucose 87 mg/dL (65-110); Potassium 4.9 mmol/L (3.4-5.0); Sodium 138 mmol/L (137-145)
[2025-01-12 01:39] LABS: Estimated CRCL calculation 5 ml/min; Estimated Glomerular Filt Rate 3
[2025-01-12 05:09] LABS: Hepatitis B Surface Antigen Negative (Negative)
[2025-01-12 05:27] LABS: Hepatitis B Surface Anti Res Negative
[2025-01-12 06:01] LABS: Hematocrit 26.4 % (42.0-52.0); Hemoglobin 8.7 g/dL (14.0-18.0); Mean Corpuscular HGB Conc 33.0 g/dl (32-36); Mean Corpuscular Hemoglobin 30.2 pg (26-34); Mean Corpuscular Volume 91.7 fl (80-100); Platelet Count Result 130 k/mm3 (150-375); Red Blood Count 2.88 M/mm3 (4.6-6.20); White Blood Count 3.1 K/mm3 (4.5-10.0)
[2025-01-12 06:38] LABS: Albumin Level 3.3 g/dL (3.5-5.1); Anion Gap 15 mmol/L (4-12); Calcium 7.2 mg/dL (8.4-10.2); Carbon Dioxide 15 mmol/L (22-30); Chloride 109 mmol/L (98-107); Estimated CRCL calculation 5 ml/min; Estimated Glomerular Filt Rate 3; Glucose 86 mg/dL (65-110); Potassium 5.6 mmol/L (3.4-5.0); Sodium 139 mmol/L (137-145)
[2025-01-12] MEDS: SODIUM CHLORIDE 0.9% IV 1,000 ML 999 ML IV CONT (09:48)
[2025-01-12] MEDS: EPOETIN ALFA-EPBX 4,000 UNITS/ML VIAL 4000 UNITS IV PUSH (09:48)
[2025-01-12] MEDS: SODIUM CHLORIDE 0.9% IV 1,000 ML 999 ML (09:49)
--- NOTE | 2025-01-12 10:30 | P.CONNP_ITS ---
Assessment and Plan Assessment and plan (1) End stage renal disease: Code(s): N18.6 - End stage renal disease Status: Chronic Assessment and Plan: * HD today * continue Sun/Sun/Sunday dialysis schedule while hospitalized * follow electrolytes, volume status, and clearance * outpatient dialysis unit = [facility] (2) SOB (shortness of breath): Code(s): R06.02 - Shortness of breath Status: Acute Assessment and Plan: * presumably secondary to missed dialysis treatments * imaging without PVC or pulmonary edema * no evidence of hypoxia * follow respiratory status with dialysis * continue supportive therapy (3) Hyperkalemia: Code(s): E87.5 - Hyperkalemia Status: Acute Assessment and Plan: * as noted on admission labs and labs this AM * s/p medical management in the ER * dialysis should help further correct * follow trend of repeat K+ levels (4) Hypertension: Code(s): I10 - Essential (primary) hypertension Status: Chronic Assessment and Plan: * mildly elevated on admission * resume home medications * fluid removal with HD may help * follow trend of hemodynamics (5) Anemia: Code(s): D64.9 - Anemia, unspecified Status: Chronic Assessment and Plan: * due to ESRD * Epogen with HD * follow trend of H/H (6) Polycystic kidney disease: Code(s): Q61.3 - Polycystic kidney, unspecified Status: Chronic Assessment and Plan: * known diagnosis * etiology of ESRD I will continue to follow the patient with you while he remains hospitalized and make further recommendations as deemed necessary. Thank you for allowing me to participate in the care of this patient. L History of Present Illness Reason for Consult Consult date: 01/12/25 Reason for consult: end stage renal disease Chief Complaint Chief complaint: Hyperkalemia, uremia, missed hemodialysis History of Present Illness Narrative: The patient is a 59 year-old male with past medical history as outlined below who presented to [facility] ER with complaints of shortness of breath. The patient apparently missed all of his dialysis treatments last week due to a transportation issue (although I am not entirely clear on the specifics). despite this fact, he had been doing fairly well up until yesterday afternoon when he started developing symptoms of shortness of breath. In spite of his shortness of breath, he denied any complaints of chest pain, orthopnea, PND, or significant worsening in his lower extremity edema. However,as his shortness of breath seem to progressively get worse, this prompted his presentation to the emergency room for further assessment. Workup and evaluation emergency room demonstrated the patient be hemodynamically stable and in no acute distress. Routine blood work demonstrated a CBC with a normal white blood cell count and anemia consistent with his baseline and a chemistry panel that was consistent with his known history of end-stage renal disease with a elevated potassium of 5.6 and elevated BUN of 116 with a creatinine of 18.03. His calcium was 7.7 with an albumin of 4.1. His EKG showed normal sinus rhythm without any evidence of ischemic changes. In spite of his shortness of breath, his oxygen saturations were well preserved and his chest x-ray demonstrated no acute cardiopulmonary abnormality. Given his mildly elevated potassium level, he received medical management for this issue and was subsequently admitted to the hospital for further evaluation therapy. Renal consultation was requested due to his end-stage renal disease. The patient is somewhat familiar to me as I used to take care of his outpatient dialysis needs when he used to live in this area. At that time, he was on a Sunday, , Sunday dialysis schedule at [facility] under my care. He then recently moved to [place] and transition his outpatient dialysis to [facility] under the care of Dr. Deniz De La Paz. He does a Sunday, Sunday, Sunday dialysis schedule at that dialysis clinic currently. As already mentioned above, he missed his dialysis treatments all last week (01/05, 01/07. and 01/09). Currently, at the time my evaluation, he is receiving dialysis and appears to be tolerating it reasonably well (seen on HD at 10:20am). Review of Systems 2 Review of Systems: As per HPI. [facility] Past Medical History Medical History (Updated 01/12/25 @ 12:58 by Chaparro Holcomb MD) Hyperkalemia Cardiomyopathy Acute systolic heart failure Acute diastolic CHF (congestive heart failure) Anemia of chronic disease Flash pulmonary edema Adult polycystic kidney disease Surgical History Surgical History No significant past surgical history Family History Family History Sibling Heart disease Fraternal twin brother had CABG X4. History of quadruple bypass Sibling Cancer Sibling ESRD on dialysis Mother Old age of old age Cerebrovascular accident Father Heart disease around 60 y.o. of uncertain type of heart disease Social History Social History Social History: Negative for alcohol cigarettes or tobacco. 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 His brother Gavino romero is the poa. He has One child who is an adult daughter. He is . Code status full code Smoking status: Never smoker Second hand tobacco smoke exposure: No Alcohol intake: never Substance use: never Substance use type: does not use Do You Feel Safe in your Home?: Yes Lack of Transportation: YES Lack of Food: Never True Current Housing: I Have Housing Concerned About Future Housing: No Difficulty Paying Gas/Electric Bills: No Difficulty Paying for Meds: No Currently Unemployed: No Education: Master's Degree or Higher Difficulty w/ Childcare or Family Care: No Spiritual care concerns: No Meds Home Medications and Allergies Home Medications ?Medication ?Instructions ?Recorded ?Confirmed ?Type aspirin 81 mg tablet,delayed 81 mg PO QAM #30 tabs 05/27/22 01/11/25 Rx release bumetanide 2 mg tablet 2 mg PO DAILY #60 tabs 05/27/22 01/11/25 Rx calcium acetate(phosphat bind) 667 667 mg PO TID #90 tabs 05/27/22 01/11/25 Rx mg tablet hydralazine 100 mg tablet 100 mg PO TID #270 tabs 03/12/24 01/11/25 Rx amino acids-protein hydrolysate 16 30 ml PO DAILY 12/10/24 01/11/25 History gram-100 kcal/30 mL oral liquid (Liquacel) cholecalciferol (vitamin D3) 250 250 mcg PO DAILY 12/10/24 01/11/25 History mcg (10,000 unit) capsule isosorbide mononitrate 30 mg 30 mg PO TID 12/10/24 01/12/25 History tablet,extended release 24 hr omega 7-haf-srv-fish oil 900 1 cap PO DAILY 07/09/25 08/11/25 History mg-1,400 mg capsule,delayed release atorvastatin 40 mg tablet 40 mg PO DAILY #60 tabs 12/16/24 01/11/25 Rx nifedipine 90 mg tablet,extended 90 mg PO DAILY #60 tabs 12/16/24 01/12/25 Rx release 24 hr albuterol sulfate 90 mcg/actuation 1 inh inhalation QID PRN shortness 12/22/24 01/11/25 Rx aerosol inhaler (Ventolin HFA) of breath or wheezing #8.5 grams bisacodyl 5 mg tablet,delayed 5 mg PO DAILY PRN Constipation #30 12/22/24 01/11/25 Rx release (Laxative (bisacodyl)) tabs compressor, for nebulizer #1 ea 12/22/24 01/12/25 Rx Allergies Allergy/AdvReac Type Severity Reaction Status Date / Time No Known Allergies Allergy Verified 01/11/25 21:30 Vital Signs Vital Signs Temp Pulse Resp BP Pulse Ox O2 Del Method 01/12/25 10:30 90 151/87 H 01/12/25 10:15 90 158/86 H 01/12/25 10:00 93 157/92 H 01/12/25 09:45 95 173/89 H 01/12/25 09:32 98 176/101 H 01/12/25 09:15 81 163/90 H 01/12/25 09:00 80 166/97 H 01/12/25 08:45 83 152/91 H 01/12/25 08:30 84 173/84 H 01/12/25 08:15 85 154/88 H 01/12/25 08:00 83 01/12/25 07:56 86 153/85 H 01/12/25 07:45 99.0 F 86 16 158/88 H 98 01/12/25 04:45 98.3 F 89 16 138/89 98 01/12/25 04:00 91 01/12/25 00:53 100 Room Air 01/12/25 00:04 93 01/11/25 23:50 98.1 F 87 17 149/94 H 100 01/11/25 23:31 86 19 159/95 H 100 01/11/25 23:01 82 23 H 100 01/11/25 23:00 81 27 H 159/93 H 100 01/11/25 22:45 84 21 H 100 01/11/25 22:31 81 24 H 100 01/11/25 22:30 85 21 H 154/95 H 100 01/11/25 22:15 79 21 H 100 01/11/25 22:01 80 16 100 01/11/25 22:00 82 23 H 158/98 H 100 01/11/25 21:56 81 01/11/25 21:45 81 19 100 01/11/25 21:35 100 Room Air 01/11/25 21:31 84 17 100 01/11/25 21:30 86 21 H 157/99 H 100 01/11/25 21:27 85 20 100 01/11/25 21:26 87 27 H 161/96 H 100 01/11/25 21:22 97.9 F 84 17 161/96 H 100 Room Air Exam 2 Narrative: GENERAL APPEARANCE: well developed well nourished male in no acute distress HEENT: normocephalic, atraumatic, normal conjunctiva and sclera, nares patient NECK: no lymphadenopathy, thyromegaly, or JVD MOUTH: normal lips, teeth, and gums CARDIOVASCULAR: RRR, normal S1 and S2, no rub RESPIRATORY: clear anteriorly ABDOMEN: soft, nontender, nondistended, positive bowel sounds present EXTREMITIES: no evidence of cyanosis, clubbing, or edema NEUROLOGICAL: alert and oriented x 3; CN II - XII intact bilaterally; no focal deficits noted Results Lab Results 01/12/25 05:45 01/12/25 05:45 Lab results: Most recent lab results Calcium 7.2 mg/dL (8.4-10.2) L 01/12/25 05:45 Phosphorus 8.8 mg/dL (2.5-4.5) H 01/12/25 05:45
--- NOTE | 2025-01-12 11:52 | P.PNIM_ITS ---
Progress Note: A&P Assessment and Plan (1) ESRD (end stage renal disease) on dialysis: Code(s): N18.6 - End stage renal disease; Z99.2 - Dependence on renal dialysis Status: Acute Assessment and Plan: * Acute on chronic. * Patient missed 3 dialysis sessions. Contineu dialysis awaiting nephrology clearance for discharge (2) SOB (shortness of breath): Code(s): R06.02 - Shortness of breath Status: Acute Assessment and Plan: * Secondary to #1. And missing dialysis. * Chest x-ray is clear. * on room air * continue dialysis and awaiting nephrology clearance (3) Acute hyperkalemia: Code(s): E87.5 - Hyperkalemia Status: Acute Assessment and Plan: * Potassium elevated at 5.6 on arrival. contineu lokelma and dialysis monitor (4) Medical non-compliance: Code(s): Z91.199 - Patient's noncompliance with other medical treatment and regimen due to unspecified reason Status: Acute Assessment and Plan: * Likely chronic in nature, however patient states he has had transportation issues for the past week not allowing him to get to dialysis. (5) Acute on chronic combined systolic and diastolic heart failure: Code(s): I50.43 - Acute on chronic combined systolic (congestive) and diastolic (congestive) heart failure Status: Chronic Assessment and Plan: * Patient does not appear to be in decompensated heart failure exacerbation. Last echo was reviewed from December 10, 2024 that showed a severe left ventricular hypertrophy ejection fraction of 65-70%. Plan Azotemia BUN 117, patient missed multiple dialysis Continue dialysis Nephrology following monitor DVT prophylaxis on Sq Heparin Subjective Date/time seen: 01/12/25 11:52 Interval history: Comfortable at bedside Review of Systems Review of Systems: All systems reviewed & are unremarkable except as noted in HPI and below Exam Const: General: comfortable and no acute distress Other: 59-year-old male patient sitting on stre tcher at this time in no acute distress. He has no complaints. HENMT: Face/Nose/Sinus: Normal nares present Mouth: Yes moist mucous membranes Eyes: General: appearance normal, both eyes and all related structures Sclera: sclerae normal Pupils: Equal, round and reactive pupils present Neck: Neck: supple and no JVD Carotids: no bruits Lymphatic: lymphadenopathy not noted Resp: Effort & Inspection: normal respiratory effort Auscultation: diminished lung sounds (Bilateral bases) Cardio: Rate: regular rate Rhythm: regular rhythm Heart sounds: no gallops, no murmurs and no rubs GI: Auscultation: normal bowel sounds Skin: General skin exam: normal color, no rashes or lesions noted, no erythema, No lesion and No rashes Lesions: no lesions noted Rashes: no rashes noted Wounds: no wounds Neuro: Cranial nerves: Yes Equal, round and reactive pupils present Speech: normal speech Motor exam (neuro): 5/5 motor strength present throughout and Normal motor muscle tone present throughout Sensory Exam: normal sensation Extrem: General: normal to inspection, no edema and no pedal edema Psych: Mental Status: mental status grossly normal Affect: normal affect Objective Data Vital Signs Vital Signs: Vital Signs - 24 hr 01/11/25 21:22 01/11/25 21:26 01/11/25 21:27 Temperature 97.9 F Pulse Rate 84 87 85 Respiratory Rate 17 27 H 20 Blood Pressure 161/96 H 161/96 H Pulse Oximetry 100 100 100 Oxygen Delivery Room Air 01/11/25 21:30 01/11/25 21:31 01/11/25 21:35 Temperature Pulse Rate 86 84 Respiratory Rate 21 H 17 Blood Pressure 157/99 H Pulse Oximetry 100 100 100 Oxygen Delivery Room Air 01/11/25 21:45 01/11/25 21:56 01/11/25 22:00 Temperature Pulse Rate 81 81 82 Respiratory Rate 19 23 H Blood Pressure 158/98 H Pulse Oximetry 100 100 Oxygen Delivery 01/11/25 22:01 01/11/25 22:15 01/11/25 22:30 Temperature Pulse Rate 80 79 85 Respiratory Rate 16 21 H 21 H Blood Pressure 154/95 H Pulse Oximetry 100 100 100 Oxygen Delivery 01/11/25 22:31 01/11/25 22:45 01/11/25 23:00 Temperature Pulse Rate 81 84 81 Respiratory Rate 24 H 21 H 27 H Blood Pressure 159/93 H Pulse Oximetry 100 100 100 Oxygen Delivery 01/11/25 23:01 01/11/25 23:31 01/11/25 23:50 Temperature 98.1 F Pulse Rate 82 86 87 Respiratory Rate 23 H 19 17 Blood Pressure 159/95 H 149/94 H Pulse Oximetry 100 100 100 Oxygen Delivery 01/12/25 00:04 01/12/25 00:53 01/12/25 04:00 Temperature Pulse Rate 93 91 Respiratory Rate Blood Pressure Pulse Oximetry 100 Oxygen Delivery Room Air 01/12/25 04:45 01/12/25 07:45 01/12/25 07:56 Temperature 98.3 F 99.0 F Pulse Rate 89 86 86 Respiratory Rate 16 16 Blood Pressure 138/89 158/88 H 153/85 H Pulse Oximetry 98 98 Oxygen Delivery 01/12/25 08:00 01/12/25 08:15 01/12/25 08:30 Temperature Pulse Rate 83 85 84 Respiratory Rate Blood Pressure 154/88 H 173/84 H Pulse Oximetry Oxygen Delivery 01/12/25 08:45 01/12/25 09:00 01/12/25 09:15 Temperature Pulse Rate 83 80 81 Respiratory Rate Blood Pressure 152/91 H 166/97 H 163/90 H Pulse Oximetry Oxygen Delivery 01/12/25 09:32 01/12/25 09:45 01/12/25 10:00 Temperature Pulse Rate 98 95 93 Respiratory Rate Blood Pressure 176/101 H 173/89 H 157/92 H Pulse Oximetry Oxygen Delivery 01/12/25 10:15 01/12/25 10:30 01/12/25 10:45 Temperature Pulse Rate 90 90 89 Respiratory Rate Blood Pressure 158/86 H 151/87 H 153/88 H Pulse Oximetry Oxygen Delivery 01/12/25 11:00 01/12/25 11:15 01/12/25 11:29 Temperature Pulse Rate 86 93 92 Respiratory Rate Blood Pressure 153/88 H 163/90 H 160/91 H Pulse Oximetry Oxygen Delivery 01/12/25 11:44 Temperature 98.2 F Pulse Rate 89 Respiratory Rate 16 Blood Pressure 152/91 H Pulse Oximetry 99 Oxygen Delivery Intake/Output Intake/Output: Intake & Output 01/09/25 01/10/25 01/11/25 01/12/25 23:59 23:59 23:59 23:59 Intake Total 360 Output Total 3500 Balance -3140 Meds/Results Medications: Active Medications Generic Name Dose Route Start Last Admin Trade Name Freq PRN Reason Stop Dose Admin Acetaminophen 650 mg 01/11/25 23:07 Acetaminophen 325 Mg Tablet PO Q4H PRN Mild Pain (1-3) or Fever Albuterol 2 puff 01/12/25 00:45 Albuterol Sulfate (*Sp) Aerosol 1 Puff INHALATION QID PRN shortness of breath or wheezing Aspirin 81 mg 01/12/25 09:00 Aspirin 81 Mg Enteric Tablet PO QAM [facility] Atorvastatin Calcium 40 mg 01/12/25 09:00 Atorvastatin 40 Mg Tablet PO DAILY [facility] Bisacodyl 5 mg 01/12/25 00:45 Bisacodyl 5 Mg Tablet Ec PO DAILY PRN Constipation Bumetanide 2 mg 01/12/25 09:00 Bumetanide 1 Mg Tablet PO DAILY [facility] Calcium Acetate 667 mg 01/12/25 09:00 01/12/25 11:50 Calcium Acetate 667 Mg Tablet PO Not Given TID [facility] Epoetin Iggy-epbx 4,000 units 01/12/25 18:00 01/12/25 09:48 Epoetin Iggy-Epbx 4,000 Units/Ml Vial IV PUSH 01/12/25 18:01 4,000 units ONCE ONE Administration Fish Oil 1 gm 01/12/25 09:00 [place] 3 Polyunsat Fatty Acids 1 Gm Cap PO QAM [facility] Heparin Sodium (Porcine) 5,000 units 01/12/25 09:00 Heparin Sodium 5,000 Units/Ml Vial SUB-Q Q12HR [facility] Hydralazine HCl 100 mg 01/12/25 08:00 01/12/25 11:50 Hydralazine Hcl 50 Mg Tablet PO Not Given TIDWM [facility] Albumin Human 50 mls @ 999 mls/hr 01/12/25 00:31 Albutein IVPB 02/11/25 00:30 Q10M PRN HYPOTENSION Miscellaneous Information 0 each 01/12/25 01:10 Amino Acids-Protein Hydrolys [Liquacel] 16-100 Gram-Kcal/30 Ml Liquid- Hold While Inpatien XX 02/11/25 01:09 CLARIFY [facility] Nifedipine 90 mg 01/12/25 09:00 Nifedipine 30 Mg Tab.Er.24 PO DAILY [facility] Non-Formulary Medication 30 ml 01/12/25 09:00 Amino Acids-Protein Hydrolys [Liquacel] PO 02/11/25 08:59 DAILY [facility] Ondansetron HCl 4 mg 01/11/25 23:07 Ondansetron Inj 4 Mg/2 Ml Vial IV PUSH Q4H PRN Nausea Vitamin D 250 mcg 01/12/25 09:00 Cholecalciferol (Vitamin D3) 125 Mcg (5,000 Units) Tablet PO DAILY [facility] Radiology Results: ITS Impressions Chest X-Ray 01/12/25 06:29 IMPRESSION: 1: NO ACUTE CARDIOPULMONARY DISEASE. Labs Labs: Laboratory Results - last 24 hr 01/11/25 01/11/25 01/12/25 21:53 23:49 00:57 WBC 4.0 L RBC 3.34 L Hgb 10.0 L Hct 30.8 L MCV 92.2 MCH 29.9 MCHC 32.5 RDW 17.3 H Plt Count 156 MPV 9.4 Immature Gran % (Auto) 0.2 Neut % (Auto) 68.7 Lymph % (Auto) 19.7 [place] % (Auto) 8.7 H Eos % (Auto) 2.5 Baso % (Auto) 0.2 Lymph # (Auto) 0.79 L [place] # (Auto) 0.4 Eos # (Auto) 0.1 Baso # (Auto) 0.0 Abs Immat Gran (auto) 0.01 Absolute Neuts (auto) 2.8 Absolute Nucleated RBC 0.000 Nucleated RBC % 0.0 Sodium 140 138 Potassium 5.6 H 4.9 Chloride 106 106 Carbon Dioxide 16 L 17 L Anion Gap 18 H 15 H BUN 116 H* D 109 H* Creatinine 18.03 H 17.81 H Estim Creat Clear Calc 5 5 Estimated GFR 3 L 3 L Glucose 133 H 87 POC Capillary Glucose 101 Calcium 7.7 L 7.8 L Phosphorus Total Bilirubin 0.4 AST 24 ALT 16 Alkaline Phosphatase 58 Total Protein 7.4 Albumin 4.1 Hep Bs Antigen Negative Hep Bs Antibody Negative 01/12/25 05:45 WBC 3.1 L RBC 2.88 L Hgb 8.7 L Hct 26.4 L MCV 91.7 MCH 30.2 MCHC 33.0 RDW 17.2 H Plt Count 130 L MPV 9.4 Immature Gran % (Auto) Neut % (Auto) Lymph % (Auto) [place] % (Auto) Eos % (Auto) Baso % (Auto) Lymph # (Auto) [place] # (Auto) Eos # (Auto) Baso # (Auto) Abs Immat Gran (auto) Absolute Neuts (auto) Absolute Nucleated RBC Nucleated RBC % Sodium 139 Potassium 5.6 H Chloride 109 H Carbon Dioxide 15 L Anion Gap 15 H BUN 117 H* Creatinine 17.83 H Estim Creat Clear Calc 5 Estimated GFR 3 L Glucose 86 POC Capillary Glucose Calcium 7.2 L Phosphorus 8.8 H Total Bilirubin AST ALT Alkaline Phosphatase Total Protein Albumin 3.3 L Hep Bs Antigen Hep Bs Antibody Quality VTE Prophylaxis VTE prophylaxis: pharmacologic ordered
[2025-01-12] MEDS: BUMETANIDE 1 MG TABLET 2 MG PO (12:00)
[2025-01-12] MEDS: CALCIUM ACETATE 667 MG TABLET PO ×2 (12:00→16:27)
[2025-01-12] MEDS: OMEGA 3 POLYUNSAT FATTY ACIDS 1 GM CAP PO (12:00)
[2025-01-12] MEDS: CHOLECALCIFEROL (VITAMIN D3) 125 MCG (5,000 UNITS) TABLET 250 MCG PO (12:01)
[2025-01-12] MEDS: ATORVASTATIN 40 MG TABLET PO (12:01)
[2025-01-12] MEDS: ASPIRIN 81 MG ENTERIC TABLET PO (12:01)
[2025-01-13] VITALS (21 sets, daily range): BP systolic 139–164; BP diastolic 74–99; PULSE 64–96; RESP 16–18; TEMP 36.4–37; O2SAT 99
--- NOTE | 2025-01-13 01:42 | PC.NURSE ---
PROVIDER ORDER TO OBTAIN PT WEIGHT POST DIALYSIS APPEARED ON THE WORKLIST 0030. PT FINISHED DIALYSIS EARLIER IN THE DAY. ENTERED WEIGHT BASED ON DIALYSIS NURSE ASSESSMENT
[2025-01-13 07:08] LABS: Hematocrit 29.5 % (42.0-52.0); Hemoglobin 9.5 g/dL (14.0-18.0); Immature Granulocyte Percent A 0.0 % (0-0.5); Lymphocytes Absolute Auto 0.89 K/mm3 (0.9-3.2); Mean Corpuscular HGB Conc 32.2 g/dl (32-36); Mean Corpuscular Hemoglobin 30.1 pg (26-34); Mean Corpuscular Volume 93.4 fl (80-100); Nucleated Red Blood Cells Absolute Auto 0.000 K/mm3 (0.0-0.012); Nucleated Red Blood Cells Perc 0.0 % (0.0-0.2); Platelet Count Result 138 k/mm3 (150-375); Red Blood Count 3.16 M/mm3 (4.6-6.20); White Blood Count 2.7 K/mm3 (4.5-10.0)
[2025-01-13 07:30] LABS: Alanine Aminotransferase 14 U/L (6-50); Albumin Level 3.5 g/dL (3.5-5.1); Alkaline Phosphatase 49 U/L (38-126); Anion Gap 9 mmol/L (4-12); Aspartate Amino Transferase 25 U/L (17-59); Bilirubin,Total 0.5 mg/dL (0.2-1.3); Blood Urea Nitrogen 61 mg/dL (9-20); Calcium 8.0 mg/dL (8.4-10.2); Carbon Dioxide 21 mmol/L (22-30); Chloride 108 mmol/L (98-107); Estimated CRCL calculation 7 ml/min; Estimated Glomerular Filt Rate 5; Glucose 85 mg/dL (65-110); Magnesium 2.0 mg/dL (1.6-2.3); Potassium 5.1 mmol/L (3.4-5.0); Sodium 138 mmol/L (137-145); Total Protein 6.4 g/dL (6.3-8.2)
--- NOTE | 2025-01-13 08:33 | PC.NURSE ---
Patient off of unit to dialysis
--- NOTE | 2025-01-13 10:00 | P.PNNP_ITS ---
Progress Note: A&P Assessment and Plan (1) End stage renal disease: Code(s): N18.6 - End stage renal disease Status: Chronic Assessment and Plan: * HD yesterday and today (since missed a week of dialysis) * continue Sun/Sun/Sunday dialysis schedule while hospitalized * follow electrolytes, volume status, and clearance * outpatient dialysis unit = [facility] (2) SOB (shortness of breath): Code(s): R06.02 - Shortness of breath Status: Resolved Assessment and Plan: * presumably secondary to missed dialysis treatments * imaging without PVC or pulmonary edema * no evidence of hypoxia * follow respiratory status with dialysis * continue supportive therapy (3) Hyperkalemia: Code(s): E87.5 - Hyperkalemia Status: Acute Assessment and Plan: * as noted on admission labs * s/p medical management in the ER * dialysis should help further correct * follow trend of repeat K+ levels (4) Hypertension: Code(s): I10 - Essential (primary) hypertension Status: Chronic Assessment and Plan: * mildly elevated on admission * resume home medications * fluid removal with HD may help * follow trend of hemodynamics (5) Anemia: Code(s): D64.9 - Anemia, unspecified Status: Chronic Assessment and Plan: * due to ESRD * Epogen with HD * follow trend of H/H (6) Polycystic kidney disease: Code(s): Q61.3 - Polycystic kidney, unspecified Status: Chronic Assessment and Plan: * known diagnosis * etiology of ESRD Will continue to follow. L Subjective Date/time seen: 01/13/25 10:00 Interval history: Follow-up for end stage renal disease on hemodialysis. Tolerating dialysis treatment at the time of my visit (seen on HD at 09:50am); tolerated dialysis treatment yesterday as well; no apparent distress voiced when seen; no issues/events overnight or earlier this morning. Exam 2 Narrative: General: WD/WN male in NAD Heart: normal S1 and S2; no rub Lungs: clear anteriorly Abdomen: soft, nontender, nondistended, positive bowel sounds Extremities: no cyanosis or clubbing; no edema Skin: warm and dry Objective Data Vital Signs Vital Signs: Vital Signs Temp Pulse Resp BP Pulse Ox O2 Del Method 01/13/25 10:00 88 157/96 H 01/13/25 09:45 96 151/95 H 01/13/25 09:30 96 161/98 H 01/13/25 09:15 84 160/90 H 01/13/25 09:00 87 163/96 H 01/13/25 08:45 88 164/94 H 01/13/25 08:32 79 156/98 H 01/13/25 08:23 98.1 F 78 18 164/99 H 01/13/25 07:54 83 01/13/25 07:54 Room Air 01/13/25 05:15 98.5 F 80 16 162/97 H 99 01/13/25 04:01 80 01/13/25 00:05 85 01/12/25 21:04 Room Air 01/12/25 20:30 98.7 F 95 18 154/91 H 97 01/12/25 20:00 98 01/12/25 16:00 82 01/12/25 14:00 98.9 F 79 20 146/93 H 98 01/12/25 12:00 86 Intake/Output Intake/Output: Intake & Output 01/10/25 01/11/25 01/12/25 01/13/25 23:59 23:59 23:59 23:59 Intake Total 1886 100 Output Total 3700 250 Balance -1814 -150 Meds/Results Medications: Active Medications Generic Name Dose Route Start Last Admin Trade Name Freq PRN Reason Stop Dose Admin Acetaminophen 650 mg 01/11/25 23:07 Acetaminophen 325 Mg Tablet PO Q4H PRN Mild Pain (1-3) or Fever Albuterol 2 puff 01/12/25 00:45 Albuterol Sulfate (*Sp) Aerosol 1 Puff INHALATION QID PRN shortness of breath or wheezing Aspirin 81 mg 01/12/25 09:00 01/13/25 11:17 Aspirin 81 Mg Enteric Tablet PO Not Given QAM [facility] Atorvastatin Calcium 40 mg 01/12/25 09:00 01/13/25 11:17 Atorvastatin 40 Mg Tablet PO Not Given DAILY [facility] Bisacodyl 5 mg 01/12/25 00:45 Bisacodyl 5 Mg Tablet Ec PO DAILY PRN Constipation Bumetanide 2 mg 01/12/25 09:00 01/13/25 11:17 Bumetanide 1 Mg Tablet PO Not Given DAILY [facility] Calcium Acetate 667 mg 01/12/25 09:00 08/12/25 11:17 Calcium Acetate 667 Mg Tablet PO Not Given TID [facility] Epoetin Iggy-epbx 10,000 units 01/13/25 18:02 Epoetin Iggy-Epbx 10,000 Units/Ml Vial IV PUSH 01/13/25 18:03 ONCE ONE Fish Oil 1 gm 01/12/25 09:00 01/13/25 11:17 [place] 3 Polyunsat Fatty Acids 1 Gm Cap PO Not Given QAM [facility] Heparin Sodium (Porcine) 5,000 units 01/12/25 09:00 01/13/25 11:17 Heparin Sodium 5,000 Units/Ml Vial SUB-Q Not Given Q12HR [facility] Hydralazine HCl 100 mg 01/12/25 08:00 01/13/25 11:18 Hydralazine Hcl 50 Mg Tablet PO Not Given TIDWM [facility] Albumin Human 50 mls @ 999 mls/hr 01/12/25 00:31 Albutein IVPB 02/11/25 00:30 Q10M PRN HYPOTENSION Lidocaine/Prilocaine 1 each 01/13/25 07:05 Lidocaine/Prilocaine Cream 2.5-2.5% Tube TOPICAL WITH DIALYSIS PRN for dialysis Protocol Nifedipine 90 mg 01/12/25 09:00 01/13/25 11:17 Nifedipine 30 Mg Tab.Er.24 PO Not Given DAILY [facility] Ondansetron HCl 4 mg 01/11/25 23:07 Ondansetron Inj 4 Mg/2 Ml Vial IV PUSH Q4H PRN Nausea Vitamin D 250 mcg 01/12/25 09:00 01/13/25 11:17 Cholecalciferol (Vitamin D3) 125 Mcg (5,000 Units) Tablet PO Not Given DAILY [facility] Radiology Results: ITS Impressions Chest X-Ray 01/12/25 06:29 IMPRESSION: 1: NO ACUTE CARDIOPULMONARY DISEASE. Labs Labs: Laboratory Tests 01/13/25 07:02 01/13/25 07:02 Calcium 8.0 L Magnesium 2.0 Total Bilirubin 0.5 AST 25 ALT 14 Alkaline Phosphatase 49 Total Protein 6.4 Albumin 3.5
--- NOTE | 2025-01-13 10:21 | P.PNIM_ITS ---
Subjective Date/time seen: 01/13/25 10:21 Interval history: This pt was examined today at the bedside as he was in dialysis. He has no new complaints and states his dyspnea that he was experiencing is Objective Data Vital Signs Vital Signs: Vital Signs - 24 hr 01/12/25 10:30 01/12/25 10:45 01/12/25 11:00 Temperature Pulse Rate 90 89 86 Respiratory Rate Blood Pressure 151/87 H 153/88 H 153/88 H Pulse Oximetry Oxygen Delivery 01/12/25 11:00 01/12/25 11:15 01/12/25 11:29 Temperature Pulse Rate 93 92 Respiratory Rate Blood Pressure 163/90 H 160/91 H Pulse Oximetry Oxygen Delivery Room Air 01/12/25 11:44 01/12/25 12:00 01/12/25 14:00 Temperature 98.2 F 98.9 F Pulse Rate 89 86 79 Respiratory Rate 16 20 Blood Pressure 152/91 H 146/93 H Pulse Oximetry 99 98 Oxygen Delivery 01/12/25 16:00 01/12/25 20:00 01/12/25 20:30 Temperature 98.7 F Pulse Rate 82 98 95 Respiratory Rate 18 Blood Pressure 154/91 H Pulse Oximetry 97 Oxygen Delivery 01/12/25 21:04 01/13/25 00:05 01/13/25 04:01 Temperature Pulse Rate 85 80 Respiratory Rate Blood Pressure Pulse Oximetry Oxygen Delivery Room Air 01/13/25 05:15 01/13/25 08:23 01/13/25 08:32 Temperature 98.5 F 98.1 F Pulse Rate 80 78 79 Respiratory Rate 16 18 Blood Pressure 162/97 H 164/99 H 156/98 H Pulse Oximetry 99 Oxygen Delivery 01/13/25 08:45 01/13/25 09:00 01/13/25 09:15 Temperature Pulse Rate 88 87 84 Respiratory Rate Blood Pressure 164/94 H 163/96 H 160/90 H Pulse Oximetry Oxygen Delivery Intake/Output Intake/Output: Intake & Output 01/10/25 01/11/25 01/12/25 01/13/25 23:59 23:59 23:59 23:59 Intake Total 1886 100 Output Total 3700 250 Balance -1814 -150 Meds/Results Medications: Active Medications Generic Name Dose Route Start Last Admin Trade Name Freq PRN Reason Stop Dose Admin Acetaminophen 650 mg 01/11/25 23:07 Acetaminophen 325 Mg Tablet PO Q4H PRN Mild Pain (1-3) or Fever Albuterol 2 puff 01/12/25 00:45 Albuterol Sulfate (*Sp) Aerosol 1 Puff INHALATION QID PRN shortness of breath or wheezing Aspirin 81 mg 01/12/25 09:00 01/12/25 12:01 Aspirin 81 Mg Enteric Tablet PO 81 mg QAM [facility] Administration Atorvastatin Calcium 40 mg 01/12/25 09:00 01/12/25 12:01 Atorvastatin 40 Mg Tablet PO 40 mg DAILY [facility] Administration Bisacodyl 5 mg 01/12/25 00:45 Bisacodyl 5 Mg Tablet Ec PO DAILY PRN Constipation Bumetanide 2 mg 01/12/25 09:00 01/12/25 12:00 Bumetanide 1 Mg Tablet PO 2 mg DAILY [facility] Administration Calcium Acetate 667 mg 01/12/25 09:00 01/12/25 16:27 Calcium Acetate 667 Mg Tablet PO 667 mg TID [facility] Administration Epoetin Iggy-epbx 10,000 units 01/13/25 18:02 Epoetin Iggy-Epbx 10,000 Units/Ml Vial IV PUSH 01/13/25 18:03 ONCE ONE Fish Oil 1 gm 01/12/25 09:00 01/12/25 12:00 [place] 3 Polyunsat Fatty Acids 1 Gm Cap PO 1 gm QAM [facility] Administration Heparin Sodium (Porcine) 5,000 units 01/12/25 09:00 01/12/25 21:04 Heparin Sodium 5,000 Units/Ml Vial SUB-Q 5,000 units Q12HR [facility] Administration Hydralazine HCl 100 mg 01/12/25 08:00 01/12/25 16:27 Hydralazine Hcl 50 Mg Tablet PO 100 mg TIDWM [facility] Administration Albumin Human 50 mls @ 999 mls/hr 01/12/25 00:31 Albutein IVPB 02/11/25 00:30 Q10M PRN HYPOTENSION Lidocaine/Prilocaine 1 each 01/13/25 07:05 Lidocaine/Prilocaine Cream 2.5-2.5% Tube TOPICAL WITH DIALYSIS PRN for dialysis Protocol Nifedipine 90 mg 01/12/25 09:00 01/12/25 12:01 Nifedipine 30 Mg Tab.Er.24 PO 90 mg DAILY [facility] Administration Ondansetron HCl 4 mg 01/11/25 23:07 Ondansetron Inj 4 Mg/2 Ml Vial IV PUSH Q4H PRN Nausea Vitamin D 250 mcg 01/12/25 09:00 01/12/25 12:01 Cholecalciferol (Vitamin D3) 125 Mcg (5,000 Units) Tablet PO 250 mcg DAILY [facility] Administration Radiology Results: ITS Impressions Chest X-Ray 01/12/25 06:29 IMPRESSION: 1: NO ACUTE CARDIOPULMONARY DISEASE. Labs Labs: Laboratory Results - last 24 hr 01/13/25 07:02 WBC 2.7 L RBC 3.16 L Hgb 9.5 L Hct 29.5 L MCV 93.4 MCH 30.1 MCHC 32.2 RDW 17.1 H Plt Count 138 L MPV 10.2 Immature Gran % (Auto) 0.0 Neut % (Auto) 48.8 Lymph % (Auto) 32.8 [place] % (Auto) 12.5 H Eos % (Auto) 5.2 H Baso % (Auto) 0.7 Lymph # (Auto) 0.89 L [place] # (Auto) 0.3 Eos # (Auto) 0.1 Baso # (Auto) 0.0 Abs Immat Gran (auto) 0.00 Absolute Neuts (auto) 1.3 Absolute Nucleated RBC 0.000 Nucleated RBC % 0.0 Sodium 138 Potassium 5.1 H Chloride 108 H Carbon Dioxide 21 L Anion Gap 9 BUN 61 H D Creatinine 11.54 H Estim Creat Clear Calc 7 Estimated GFR 5 L Glucose 85 Calcium 8.0 L Magnesium 2.0 Total Bilirubin 0.5 AST 25 ALT 14 Alkaline Phosphatase 49 Total Protein 6.4 Albumin 3.5
--- NOTE | 2025-01-13 10:25 | P.DS_ITS ---
DS: Admitting Diagnosis Discharge Date 01/13/2025 Admitting Diagnosis ESRD, SOB, Hyperkalemia, Acute on Chronic Combined Systolic and Diastolic Heart Failure and Medical Non-Compliance DS: Discharge Diagnosis Discharge Diagnosis (1) ESRD (end stage renal disease) on dialysis: Code(s): N18.6 - End stage renal disease; Z99.2 - Dependence on renal dialysis Status: Acute Assessment and Plan: * Acute on chronic. * Patient missed 3 dialysis sessions. * On 01/13/25 pt appears euvolemic. After two days of dialysis in a row and normal labs this AM, after discussing with nephrology, Dr. Holcomb, he is stable for discharge this afternoon to resume his normal dialysis schedule on Sunday. BUN from 117-->61 today, Azotemia much improved. (2) SOB (shortness of breath): Code(s): R06.02 - Shortness of breath Status: Resolved Assessment and Plan: * Secondary to #1. And missing dialysis. * Chest x-ray is clear. * on room air * continue dialysis and awaiting nephrology clearance * 01/13/25: Resolved (3) Acute hyperkalemia: Code(s): E87.5 - Hyperkalemia Status: Acute Assessment and Plan: * Potassium elevated at 5.6 on arrival. * 01/13/25: This AM 5.1. Pt being dialyzed again today. Stable for discharge after being dialyzed. (4) Medical non-compliance: Code(s): Z91.199 - Patient's noncompliance with other medical treatment and regimen due to unspecified reason Status: Acute Assessment and Plan: * Likely chronic in nature, however patient states he has had transportation issues for the past week not allowing him to get to dialysis. * 01/13/25: Verified with pt that he has transportation to resume his normal dialysis schedule which was originally holding him up and caused him to miss one full week of dialysis. He reassures me that he does and will be able to continue. (5) Acute on chronic combined systolic and diastolic heart failure: Code(s): I50.43 - Acute on chronic combined systolic (congestive) and diastolic (congestive) heart failure Status: Chronic Assessment and Plan: * Patient does not appear to be in decompensated heart failure exacerbation. Last echo was reviewed from December 10, 2024 that showed a severe left ventricular hypertrophy ejection fraction of 65-70%. DS: Summary Hospital Course Hospital Course: This is a 59-year-old male patient, well known to this facility with past medical history of polycystic kidney disease causing end-stage renal disease on hemodialysis Sunday schedule, cardiomyopathy, heart failure who presented to the emergency room and was subsequently admitted for dialysis treatment after reportedly having missed dialysis for 1 week. Patient reported the last time he was dialyzed was now 9 days ago, having had missed a full 3 sessions of dialysis. Patient reports this was secondary to transportation issues. Patient reports reports becoming slightly dyspneic which later progressed prompting his presentation to the emergency room and be subsequently admitted. In the emergency room workup was performed that consisted of labs and imaging. CBC showing chronic anemia with hemoglobin of 10.0. This is at patient's baseline. Patient's metabolic panel however does show hyperkalemia with potassium of 5.6 and renal function with BUN of 116 and creatinine of 18.03. Calcium is 7.7 with albumin of 4.1. EKG showing normal sinus rhythm 79 beats per minute without any ectopy or ischemia and no changes as noted when compared to EKG from December 23, 2024. Vital signs were stable. He is not requiring any supplemental oxygen. Chest x-ray was negative for any acute cardiopulmonary abnormality. In the emergency room patient was given calcium gluconate, Lokelma, 5 units of regular insulin with 25 g of dextrose and sodium bicarb. Throughout the admission denied any chest pain, peripheral edema and has not developed any other acute complaints other than needing to be dialyzed. Patient had 3.6 L removed yesterday in dialysis and is being dialyzed once again today. His azotemia improved from BUN greater than 117 down to 61 today. His creatinine has also improved from 17-11.5 today. Patient's potassium today is 5.1 prior to dialysis. I have discussed these findings with Dr. Holcomb, as well as my physical exam and he agrees that patient is stable for discharge this afternoon. I confirmed with patient that he does have transportation available to continue his dialysis scheduled this coming Sunday, in which Dr. Holcomb is comfortable with. Status at Discharge Cognitive/behavioral status at discharge: At baseline Functional status at discharge: independent ambulation Overall status at discharge: patient is back to baseline Time Spent with Patient Time attestation: Total time spent providing and/or coordinating discharge services: Time spent: Greater than 30 minutes Specific discharge activities: Follow-up, medications and compliance overall Exam Const: General: comfortable and no acute distress Other: In dialysis, in bed HENMT: Face/Nose/Sinus: Normal nares present Mouth: Yes moist mucous membranes Eyes: General: appearance normal, both eyes and all related structures Sclera: sclerae normal Pupils: Equal, round and reactive pupils present Neck: Neck: supple and no JVD Carotids: no bruits Lymphatic: lymphadenopathy not noted Resp: Effort & Inspection: normal respiratory effort Auscultation: diminished lung sounds (Bilateral bases) Cardio: Rate: regular rate Rhythm: regular rhythm Heart sounds: no gallops, no murmurs and no rubs GI: Auscultation: normal bowel sounds Skin: General skin exam: normal color, no rashes or lesions noted, no erythema, No lesion and No rashes Lesions: no lesions noted Rashes: no rashes noted Wounds: no wounds Neuro: Cranial nerves: Yes Equal, round and reactive pupils present Speech: normal speech Motor exam (neuro): 5/5 motor strength present throughout and Normal motor muscle tone present throughout Sensory Exam: normal sensation Extrem: General: normal to inspection, no edema and no pedal edema Psych: Mental Status: mental status grossly normal Affect: normal affect DS: Data Data Completed and Pending Completed studies during hospitalization: ITS Impressions Chest X-Ray 01/12/25 06:29 IMPRESSION: 1: NO ACUTE CARDIOPULMONARY DISEASE. Labs on day of discharge: Labs from last 24 hours 01/13/25 07:02 WBC 2.7 L RBC 3.16 L Hgb 9.5 L Hct 29.5 L MCV 93.4 MCH 30.1 MCHC 32.2 RDW 17.1 H Plt Count 138 L MPV 10.2 Immature Gran % (Auto) 0.0 Neut % (Auto) 48.8 Lymph % (Auto) 32.8 [place] % (Auto) 12.5 H Eos % (Auto) 5.2 H Baso % (Auto) 0.7 Lymph # (Auto) 0.89 L [place] # (Auto) 0.3 Eos # (Auto) 0.1 Baso # (Auto) 0.0 Abs Immat Gran (auto) 0.00 Absolute Neuts (auto) 1.3 Absolute Nucleated RBC 0.000 Nucleated RBC % 0.0 Sodium 138 Potassium 5.1 H Chloride 108 H Carbon Dioxide 21 L Anion Gap 9 BUN 61 H D Creatinine 11.54 H Estim Creat Clear Calc 7 Estimated GFR 5 L Glucose 85 Calcium 8.0 L Magnesium 2.0 Total Bilirubin 0.5 AST 25 ALT 14 Alkaline Phosphatase 49 Total Protein 6.4 Albumin 3.5 Discharge Plan Discharge Attending physician on discharge: Ruiz Patel Consulting providers: Deniz De La Paz; Marissa Long Discharging Clinician: Marissa Long Anticipated Discharge Date/Time: 01/13/25 10:43 Patient Disposition: Home Activity: as tolerated Diet: renal Discharge Instructions: Piter, thank you for allowing us to care for you during this hospitalization. You have received 2 episodes of dialysis with overall improvement in her condition. As I have spoken with Dr. Holcomb, and reviewed your physical exam from today as well as urine labs with him and he is comfortable for discharge today with the understanding that you resume your normal M-W- dialysis schedule on Sunday. In the meantime if you develop any new or worsening symptoms please return to the emergency room we happy to re-evaluate you. Please continue all home medications as previously ordered. Patient Language: St Helenian Stand Alone Forms: General Discharge Information Follow-up/Referrals: Quan,DEMI Souaz [Primary Care Provider] - Call for Appointment Deniz De La Paz MD [Physician] - Call for Appointment Discharge Medications: Continued calcium acetate(phosphat bind) 667 mg Tablet 667 mg PO TID Qty: 90 1RF aspirin 81 mg Tablet,Delayed Release (Dr/Ec) 81 mg PO QAM Qty: 30 1RF bumetanide 2 mg tablet 2 mg PO DAILY Qty: 60 1RF omega 5-iuz-rop-fish oil 900-1,400 mg capsule,delayed release(DR/EC) 1 cap PO DAILY cholecalciferol (vitamin D3) 250 mcg (10,000 unit) capsule 250 mcg PO DAILY Liquacel 16-100 gram-kcal/30 mL liquid 30 ml PO DAILY isosorbide mononitrate 30 mg Tablet Extended Release 24 Hr 30 mg PO TID atorvastatin 40 mg Tablet 40 mg PO DAILY Qty: 60 0RF nifedipine 90 mg tablet extended release 24hr 90 mg PO DAILY Qty: 60 0RF bisacodyl [Laxative (bisacodyl)] 5 mg Tablet,Delayed Release (Dr/Ec) 5 mg PO DAILY PRN (Reason: Constipation) Qty: 30 0RF albuterol sulfate [Ventolin HFA] 90 mcg/actuation HFA aerosol inhaler 1 inh inhalation QID PRN (Reason: shortness of breath or wheezing) Qty: 8.5 0RF (DME) compressor, for nebulizer Device See Rx Instructions .Route Qty: 1 0RF Rx Instructions: As directed hydralazine 100 mg tablet 100 mg PO TID Qty: 270 3RF Date of admission: 01/12/25 17:18 Primary Care Provider: DasiaLibby Admitting Provider: Gavino Villaseñor Attending physician on admission: Gavino Villaseñor Condition: Stable Quality VTE Prophylaxis VTE prophylaxis: pharmacologic ordered Hospitalist MIPS Heart Failure (Exclusion) Patient has history of Heart Transplant or Left Ventricular Assistive Device?: No IF YES, STOP HERE Heart Failure (Qualifier) Patient has current or prior documentation of LVEF less than or equal to 40%, or mod/servere depressed LVSF?: No IF NO, STOP HERE
[2025-01-13] MEDS: EPOETIN ALFA-EPBX 10,000 UNITS/ML VIAL 10000 UNITS IV PUSH (11:21)
[2025-01-13] MEDS: CALCIUM ACETATE 667 MG TABLET PO (12:35)
[2025-01-13 14:00] LABS: MRSA (PCR) NOT DETECTED (NOT DETECTE)
--- NOTE | 2025-01-14 07:41 | P.CDI_ITS ---
<Statement entered by Marissa Long, AMARJIT-Marcy - 01/15/25 06:27> Acute on Chronic Heart Failure CDI Query Clarification Request Please clarify acuity of heart failure if known. * Acute * Chronic * Acute on Chronic * Unknown The medical chart reflects the followin) Acute on chronic combined systolic and diastolic heart failure: Code(s): I50.43 - Acute on chronic combined systolic (congestive) and diastolic (congestive) heart failure Status: Chronic Assessment and Plan: * Patient does not appear to be in decompensated heart failure exacerbation. L ast echo was reviewed from December 10, 2024 that showed a severe left ventricular hypertrophy ejection fraction of 65-70%. nephrology documented: 1) End stage renal disease: Code(s): N18.6 - End stage renal disease Status: Chronic Assessment and Plan: * HD yesterday and today (since missed a week of dialysis) * continue Sun/Sun/Sunday dialysis schedule while hospitalized * follow electrolytes, volume status, and clearance * outpatient dialysis unit = [facility] (2) SOB (shortness of breath): Code(s): R06.02 - Shortness of breath Status: Resolved Assessment and Plan: * presumably secondary to missed dialysis treatments * imaging without PVC or pulmonary edema * no evidence of hypoxia * follow respiratory status with dialysis * continue supportive therapy (3) Hyperkalemia: Code(s): E87.5 - Hyperkalemia Status: Acute Assessment and Plan: * as noted on admission labs * s/p medical management in the ER * dialysis should help further correct * follow trend of repeat K+ levels (4) Hypertension: Code(s): I10 - Essential (primary) hypertension Status: Chronic Assessment and Plan: * mildly elevated on admission * resume home medications * fluid removal with HD may help * follow trend of hemodynamics (5) Anemia: Code(s): D64.9 - Anemia, unspecified Status: Chronic Assessment and Plan: * due to ESRD * Epogen with HD * follow trend of H/H (6) Polycystic kidney disease: Code(s): Q61.3 - Polycystic kidney, unspecified Status: Chronic Assessment and Plan: * known diagnosis * etiology of ESRD Will continue to follow.
--- NOTE | 2025-01-14 07:41 | WPDCDIQUERY2 ---
CDI Query Clarification Request Please clarify acuity of heart failure if known. Acute Chronic Acute on Chronic Unknown The medical chart reflects the followin) Acute on chronic combined systolic and diastolic heart failure: Code(s): I50.43 - Acute on chronic combined systolic (congestive) and diastolic (congestive) heart failure Status: Chronic Assessment and Plan: Patient does not appear to be in decompensated heart failure exacerbation. Last echo was reviewed from December 10, 2024 that showed a severe left ventricular hypertrophy ejection fraction of 65-70%. nephrology documented: 1) End stage renal disease: Code(s): N18.6 - End stage renal disease Status: Chronic Assessment and Plan: HD yesterday and today (since missed a week of dialysis) continue Sun/Sun/Sunday dialysis schedule while hospitalized follow electrolytes, volume status, and clearance outpatient dialysis unit = [facility] (2) SOB (shortness of breath): Code(s): R06.02 - Shortness of breath Status: Resolved Assessment and Plan: presumably secondary to missed dialysis treatments imaging without PVC or pulmonary edema no evidence of hypoxia follow respiratory status with dialysis continue supportive therapy (3) Hyperkalemia: Code(s): E87.5 - Hyperkalemia Status: Acute Assessment and Plan: as noted on admission labs s/p medical management in the ER dialysis should help further correct follow trend of repeat K+ levels (4) Hypertension: Code(s): I10 - Essential (primary) hypertension Status: Chronic Assessment and Plan: mildly elevated on admission resume home medications fluid removal with HD may help follow trend of hemodynamics (5) Anemia: Code(s): D64.9 - Anemia, unspecified Status: Chronic Assessment and Plan: due to ESRD Epogen with HD follow trend of H/H (6) Polycystic kidney disease: Code(s): Q61.3 - Polycystic kidney, unspecified Status: Chronic Assessment and Plan: known diagnosis etiology of ESRD Will continue to follow.
[2025-01-16 05:41] LABS: Blood Urea Nitrogen 117 mg/dL (9-20)
== END 2025-01-13 16:25 | disposition home or self-care (01) | DRG 291 ==
LOC: ANHED 22:05 → ANH3MEDSUR 23:44
PROVIDERS: Internal Medicine Nephrology; Admitting Provider Internal Medicine; Emergency Provider Student in an Organized Health Care Education/Training Program; PCP Nurse Practitioner Family; Visit Provider Nurse Practitioner Adult Health
DX: I13.2 Hypertensive heart and chronic kidney disease with heart failure and with stage 5 chronic kidney disease, or end stage renal disease (principal); I50.43 Acute on chronic combined systolic (congestive) and diastolic (congestive) heart failure; N18.6 End stage renal disease; Q61.2 Polycystic kidney, adult type; I42.9 Cardiomyopathy, unspecified; D63.1 Anemia in chronic kidney disease; E87.5 Hyperkalemia; Z99.2 Dependence on renal dialysis; Z91.158 Patient's noncompliance with renal dialysis for other reason; Z79.82 Long term (current) use of aspirin
CPT/HCPCS: 36415; 71045; 80048; 80053; 80069; 82948; 83735; 85025; 85027; 86706; 87340; 87641; 93005; 96372; 96374; 96375; 99285; A9270; G0257; G0378; J0612; J1644; J1815; J7030; Q5105

== ENCOUNTER 2025-01-17 16:20 | Emergency (ER) | payer OTHER, MEDICARE, MEDICAID, SELFPAY ==
[2025-01-17] VITALS (7 sets, daily range): BP systolic 159–196; BP diastolic 96–117; PULSE 77–87; RESP 16–20; TEMP 36.6; O2SAT 99–100
--- NOTE | ~2025-01-17 | CT_ITS ---
EXAMINATION: CT abdomen pelvis wo con DATE: 01/17/2025 17:15 INDICATION: flank pain,hematuria TECHNIQUE: Computed tomography (CT) of the abdomen and pelvis was performed without intravenous contr ast. Automated exposure control and iterative reconstruction technique were employed. The dose-length product was 451.10 mGy-cm. COMPARISON: None. FINDINGS: Lower thorax: Cardiomegaly. Trace pericardial fluid. Possible coronary artery calcification. Liver: Innumerable hepatic cysts and hypodensities that are too small to characterize but likely repr esent cysts or hemangiomas. Biliary/Gallbladder: Gallbladder is normal. No bile duct dilation. Pancreas: No mass or duct dilation. Spleen: Normal. Adrenals:No mass. Kidneys: Bilateral severe renal enlargement, near complete replacement of renal parenchyma by cysts, with scattered calcifications. No definite hydronephrosis. GI tract: The rectum is mildly distended to 5.2 cm by formed stool. No small bowel dilation. Appendix not confidently visualized. Mesentery/Peritoneum: No ascites, mass, or free air. Retroperitoneum: No mass. Atherosclerotic calcifications of intra-abdominal arterial vessels. Pelvis: Mild bladder wall thickening in a partially distended urinary bladder. Mild prostatomegaly. Soft Tissues: Small bilateral inguinal hernias containing loops of normal-appearing small bowel. Bones: No acute osseous finding. IMPRESSION: Cardiomegaly with trace pericardial effusion. Cholecystectomy kidney disease. Distal ureters are difficult to trace given the distortion of normal anatomy and paucity of abdominal fat. No definite new calcification in the expected pathways of the u reters. Possible mild fecal impaction. Bladder wall thickening may be secondary to cystitis or outlet obstruction from prostatomegaly. Reviewed, dictated and finalized at location K. IMPRESSION: Cardiomegaly with trace pericardial effusion. Cholecystectomy kidney disease. Distal ureters are difficult to trace given the distortion of normal anatomy and paucity of abdominal fat. No definite new abundio cification in the expected pathways of the ureters. Possible mild fecal impaction. Bladder wall thickening may be secondary to cystitis or outlet obstruction from prostatomegaly.
--- NOTE | ~2025-01-17 | CT_ITS ---
EXAMINATION: CT brain wo con DATE: 01/17/2025 17:16 INDICATION: fall . TECHNIQUE: Computed tomography (CT) of the head was performed without intravenous contrast. The mA wa s adjusted according to patient size. Iterative reconstruction technique was employed. The dose-lengt h product was 681.00 mGy-cm. COMPARISON: None. FINDINGS: No acute intracranial hemorrhage or extra-axial fluid collection. No hydrocephalus, mass, or herniation. No acute ischemic infarct. Unremarkable dural venous sinus attenuation. No acute osseous abnormality. The aerated spaces are clear. Moderate atrophy and chronic white matter change. Atherosclerotic intracranial calcification. Right f rontal arachnoid cyst. IMPRESSION: No acute intracranial process. Reviewed, dictated and finalized at location K.
--- NOTE | 2025-01-17 16:53 | ECG_ITS ---
Test Date: 2025-01-17 17:27:26 Measurements Intervals [place] Rate: 79 P: 71 LA: 168 QRS: -13 QRSD: 94 T: 48 QT: 395 QTc: 453 Interpretive Statements SINUS RHYTHM POSSIBLE LEFT ATRIAL ENLARGEMENT BORDERLINE ECG Compared to ECG 01/11/2025 21:45:03 NO SIGNIFICANT CHANGE Electronically Signed On 01-17-2025 19:54:46 CDT by David Tay D.O.
[2025-01-17 17:39] LABS: Hematocrit 31.4 % (42.0-52.0); Hemoglobin 10.2 g/dL (14.0-18.0); Immature Granulocyte Percent A 0.2 % (0-0.5); Lymphocytes Absolute Auto 1.05 K/mm3 (0.9-3.2); Mean Corpuscular HGB Conc 32.5 g/dl (32-36); Mean Corpuscular Hemoglobin 29.7 pg (26-34); Mean Corpuscular Volume 91.3 fl (80-100); Nucleated Red Blood Cells Absolute Auto 0.000 K/mm3 (0.0-0.012); Nucleated Red Blood Cells Perc 0.0 % (0.0-0.2); Platelet Count Result 179 k/mm3 (150-375); Red Blood Count 3.44 M/mm3 (4.6-6.20); White Blood Count 4.9 K/mm3 (4.5-10.0)
[2025-01-17 17:55] LABS: Alanine Aminotransferase 18 U/L (6-50); Albumin Level 4.4 g/dL (3.5-5.1); Alkaline Phosphatase 69 U/L (38-126); Anion Gap 18 mmol/L (4-12); Aspartate Amino Transferase 31 U/L (17-59); Bilirubin,Total 0.5 mg/dL (0.2-1.3); Blood Urea Nitrogen 75 mg/dL (9-20); Calcium 8.6 mg/dL (8.4-10.2); Carbon Dioxide 17 mmol/L (22-30); Chloride 105 mmol/L (98-107); Glucose 87 mg/dL (65-110); Potassium 4.6 mmol/L (3.4-5.0); Sodium 140 mmol/L (137-145); Total Protein 8.0 g/dL (6.3-8.2)
[2025-01-17 18:01] LABS: Estimated CRCL calculation 5 ml/min; Estimated Glomerular Filt Rate 3
[2025-01-17 18:29] LABS: INR 1.0; Prothrombin Time 13.1 Seconds (11.1-14.7)
--- OUTSIDE RECORDS SUMMARY | 2025-01-17 18:56 | XMS_ITS | Encounter Summary ---
Author Organization [facility] Healthcare Address [address] [place] [address] Care Team Providers Care Manager Non Profit Name Role Phone Libby Glass NP Primary Care Provider [phone] Chaparro Holcomb MD Unavailable [phone] Leny Mares RN Unavailable [phone] Ingris Hodgson MA Unavailable Jane Mathew MA Unavailable Encounter Details Date Type Department Care Team (Late st Contact Info) Description 12/17/2024 Orders Only [facility] Health Information Management [address] [place] [id number] Scanning, Provider Social History Tobacco Use Types Packs/Day Years Used Date Smoking Tobacco: Never Smokeless Tobacco: Never [facility] Utilities Answer Date Recorded In the past 12 months has [employer], gas, oil, or water [employer] threatened to shut off services in your [...] How often do you attend chur or sabianist services? 1 to 4 times per year 06/13/2024 Do you belong to any clubs o r organizations such as presybeterian groups, unions, fraternal or athletic groups, or [...] any time in the past 12 m 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 Gender Identity Not on file Sexual Orientation [...] on filedocumented in this encounter Care Teams Manager Non Profit Relationship Specialty Start Date End Date Libby Glass NP [address] [facility] [address] [place] [address] PCP - General Internal Medicine 10/27/22 Chaparro Holcomb MD [address] [facility] [address] [place] [address] Referring Physician Nephrology 10/27/22 Leny Mares, TERRI [address] [facility] [address] [place] [address] Habilitative Interventionist 02/15/23 Ingris Hodgson MA [address] [facility] [address] [place] [address] ACO Care Ic Designer [employer] 12/25/24 12/25/24 Jane Mathew, COMFORT [address] [facility] [address] [place] [address] ACO Care Ic Designer [employer] 01/16/25 [facility]ist 08/23/23 documented as of this encounter
--- OUTSIDE RECORDS SUMMARY | 2025-01-17 18:56 | XMS_ITS | Encounter Summary ---
Author Organization [facility] Healthcare Address [address] [place] [address] Care Team Providers Care Newspaper Stuffer Name Role Phone Libby Glass NP Primary Care Provider [phone] Chaparro Holcomb MD Unavailable [phone] Leny Mares RN Unavailable Jane Mathew MA Unavailable [phone] Reason for Visit * Reason Comments Unsuccessful Phone Call 1 No [facility] letter sent to pt.This pt was terminated by [facility] office due to NS on 01/01 via mychart letter. Encounter Details Date Type Department Care Team (Late st Contact Info) Description 01/16/2025 DEBORAH IP Outreach [facility] Accountable Care Organization [address] [place] [id number] Jane Mathew MA [address] [place] [address] [address] Social History Tobacco Use Types Packs/Day Years Used Date Smoking Tobacco: Never Smokeless Tobacco: Never [facility] Utilities Answer Date Recorded In the past 12 months has [employer] electric, gas, oil, or water company threatened [...] any clubs o r organizations such as voodoo groups, unions, fraternal or athletic groups, or [...] on file 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 Gender Identity Not on file Sexual Orientation Not on file documented as of this encounter Plan of Treatment Not on file documented as of this encounter Visit Diagnoses Not on filedocumented in this encounter Care Teams Newspaper Stuffer Relationship Specialty Start Date End Date Libby Glass NP [address] [facility] [address] [place] [address] PCP - General Internal Medicine 10/27/22 Chaparro Holcomb MD [address] [facility] [address] [place] [address] Referring Physician Nephrology 10/27/22 Leny Mares, TERRI [address] [facility] [address] [place] [address] Yarn Twister 02/15/23 Jane Mathew MA [address] [place] [address] [address] [place] [address] ACO Care Digital Manager 01/16/25 [facility] 08/23/23 documented as of this encounter
--- OUTSIDE RECORDS SUMMARY | 2025-01-17 18:56 | XMS_ITS | Encounter Summary ---
Author Organization [facility] Healthcare Address [address] [place] [address] Care Team Providers Care Relief Charge Nurse Name Role Phone Libby Glass NP Primary Care Provider Chaparro Holcomb MD Unavailable [phone] Leny Mares RN Unavailable Jane Mathew MA Unavailable [phone] Reason for Visit * Reason Onset Date Comments Medical Question/Miscellaneous 01/02/2025 Encounter Details Date Type Department Care Team (Late st Contact Info) Description 01/02/2025 Telephone [facility] Medical Group Family Medicine [address] [facility] [address] [place] [address] Libby Glass NP [address] [facility] [address] [place] [address] Medical Question/Miscellaneous Social History Tobacco Use Types Packs/Day Years Used Date Smoking Tobacco: Never Smokeless Tobacco: Never [facility] Utilities Answer Date Recorded In the past 12 months has [employer] electric, gas, oil, or water company threatened [...] often do you attend chur ch or moravian services? 1 to 4 times per year [...] place to sleep or slept in a half-way (including now)? No 06/12/2023 Housing Stability Vital Sign Answer Nikolai e Recorded In the last 12 months, was t here a time when you were not able to pay the mortgage or rent on time? No 06/13/2024 In the past 12 months, how m any times have you moved where you were living? 1 06/13/2024 At any time in the past 12 m [facility], were you homeless or living in a half-way (including now)? No 06/13/2024 Personal Safety Answer Date Recorded Have you ever been in or are you currently in a harmful physical or emotional relationship or is someone making you feel afraid or unsafe? 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 Gender Identity Not on file Sexual Orientation Not on file documented as of this encounter Miscellaneous Notes * Telephone Encounter - Libby Glass NP - 01/02/2025 4:02 PM CDT Noted * Telephone Encounter - Nicolasa Alamo - 01/02/2025 11:17 AM CDT Medical Question/Miscellaneous Caller???s Concern: Giuliana with [facility] calling to inform DEMI Glass that pt [...] on filedocumented in this encounter Care Teams Relief Charge Nurse Relationship Specialty Start Date End Date Libby Glass NP [address] [facility] [address] [place] [address] PCP - General Internal Medicine 10/27/22 Chaparro Holcomb MD [address] [facility] [address] [place] [address] Referring Physician Nephrology 10/27/22 Leny Mares, RN [address] [facility] [address] [place] [address] Document Processor 02/15/23 Jane Mathew MA [address] [place] [address] [address] [place] [address] ACO Care Leaf Size Picker 01/16/25 [facility]ist 08/23/23 documented as of this encounter
--- OUTSIDE RECORDS SUMMARY | 2025-01-17 18:56 | XMS_ITS | Clinical Summary ---
Author Organization [facility] Address [address] [place] [address] Care Team Providers Care Strip Tank Tender Name Role Phone Beckykunal Libby KIMBERLY Primary Care Provider [phone] Source Comments [facility],non-owned Affiliates and Associated Physician Practices is amultiple site organization consisting of ambulatory clinics and hospital sitesin [place], [place], [place] and [place]. This disclosure is being madepursuant to the Care Everywhere program and may not contain all information available regarding this patient. Last updated 18.[facility] Allergies No known active allergies Medications * [...] 12/25/2024 10:16 PM CDT Emergency ER at [address] [address] Irving Anderson DO Left arm pain; Pseudoaneurysm of arteriovenous dialysis fistula, sequela Discharge Disposition: Home or Self Care 12/25/2024 Travel 12/23/2024 9:41 PM CDT - 12/25/2024 6:24 PM CDT Hospital Encounter [address] Med [address] [place] [address] Jenniffer Alford MD Arekooti, Hasita, MD Internal [...] care, and heating? Not very hard 12/23/2024 [facility] - Occupational Stress [...] any time in the past 12 m [facility], were you homeless or living in a halfway (including now)? No 12/23/2024 Sex and Gender Information Value Date Recorded Sex Assigned at Not on file Legal Sex Male 9:07 AM SHOE RECONDITIONER Gender Identity Not on file Sexual Orientation [...] st Contact Info) Description 06/29/2025 2:15 PM SHOE RECONDITIONER Appointment [facility] Vascular Services [address], [address] [place] [address] [place] [address] [address] [place] [address] Health Maintenance Due Date Last [...] Procedure Note Hi Vallejo MD - 12/25/2024 [place] [id number] Upper Extremity Venous Ultrasound Report Pat.Name: [place] SHANT Marcy Pat.ID: [id number] .Date: 12/25/2024 Refer.MD: Jenniffer Alford Exam Time: 12:14:00 PM Study Type:UE Venous Age: 7 1965,59Y Sex: MALE Sonogrphr: Ale Elliott RVT Pat. Stat.:Inpatient ICD - 9: T82.898A CPT - 4: 80678 Reason for Study: Pain -Arm, left Procedures: AV Fistula Evaluation Race: 2 Visit ID: [id number] ++++++++++++++++++++++++++++++++++++ SUMMARY: ++++++++++++++++++++++++++++++++++++ patent L arm fistula, [...] - 14.8 % 12/25/2024 5:46 AM CDT [facility] Platelet Count 209 150 - 420 x10E9/L 12/25/2024 5:46 AM CDT [facility] MPV 9.1 7.8 - 11.4 fL 12/25/2024 5:46 AM CDT [facility] Blood BLOOD SPECIMEN / Unknown Venipuncture / Unknown 12/25/2024 5:04 AM CDT 12/25/2024 5:11 AM CDT us Jenniffer Alford MD LAB - HEMATOLOGY ORDERABLES F inal Result [facility] [address] [place] [address] * (ABNORMAL) BASIC METABOLIC PANEL (CALCIUM TOTAL) (12/25/2024 5:04 AM CDT) Glucose 92 70 - 99 mg/dL 12/25/2024 5:32 AM [facility] Sodium 139 136 - 145 mmol/L 12/25/2024 5:32 AM [facility] Potassium 5.0 3.5 - 5.1 mmol/L 12/25/2024 5:32 AM T [facility] Chloride 101 98 - 107 mmol/L 12/25/2024 5:32 AM T [facility] CO2 26 22 - 29 mmol/L 12/25/2024 5:32 AM [facility] Calcium 8.4 8.4 - 10.4 mg/dL 12/25/2024 5:32 AM [facility] Anion Gap 12 6 - 16 mmol/L 12/25/2024 5:32 AM T [facility] BUN 43(H) 7 - 26 mg/dL 12/25/2024 5:32 AM T [facility] Creatinine 8.47(H) 0.72 - 1.25 mg/dL 12/25/2024 5:32 AM [facility] eGFR by CKD-EPI 7(L) >=90 mL/min/1.7 3 m2 12/25/2024 5:32 AM T [facility] Comment:Estimated Glomerular Filtration Rate (eGFR) calculated using the CKD-EPI Creatinine Equation (2020), per the National Kidney Foundation and [place] Society of Nephrology recommendations. Blood BLOOD SPECIMEN / Unknown Venipuncture / Unknown 12/25/2024 5:04 AM CDT 12/25/2024 5:11 AM CDT Jenniffer Alford MD LAB - CHEMISTRY ORDERABLES Fi nal Result Performing Organization Address City/[facility]/ZIP Co de Phone Number [facility] [address] [place] [address] * HEPATITIS B PANEL (12/24/2024 10:43 AM CDT) HBsAb Non Reactive Non Reactive 12/24/2024 5:10 PM CDT [facility] Hepatitis B Virus Surface Antibody Quantitative 3.31 0.00 - 7.99 mIU/ml 12/24/2024 5:10 PM CDT [facility] HBsAg Non Reactive Non Reactive 12/24/2024 5:10 PM CDT [facility] HBc Antibody IgM Non Reactive Non Reactive 12/24/2024 5:10 PM CDT [facility] Blood BLOOD SPECIMEN / Unknown Venipuncture / Unknown 12/24/2024 10:43 AM CDT 12/24/2024 10:54 AM CDT Narrative [facility] - 12/24/2024 5:10 PM CDT Individual is considered not immune to HBV infection Gautam Huff MD LAB - CHEMISTRY ORDERABLES Final Result Performing Organization Address City/[facility] Co de Phone Number [facility] [address] [place] [address] * HEPATITIS B SURFACE ANTIGEN W RFLX CONFIRMATION (12/24/2024 10:40 AM CDT) HBsAg Non Reactive Non Reactive 12/24/2024 3:20 PM CDT [facility] Blood BLOOD SPECIMEN / Unknown Venipuncture / Unknown 12/24/2024 10:40 AM CDT 12/24/2024 2:48 PM CDT Hima Storm MD LAB - CHEMISTRY ORDERABLES Final Result Performing Organization Address [facility] de Phone Number [facility] [address] [place] [address] * PT-INR (12/23/2024 11:04 PM CDT) [facility] PT 14.4 12.1 - 14.8 sec 12/23/2024 11:45 PM CDT [facility] INR 1.1 0.9 - 1.1 12/23/2024 11:45 PM CDT [facility] Blood BLOOD SPECIMEN / Unknown Venipuncture / Unknown 12/23/2024 11:04 PM CDT 12/23/2024 11:18 PM CDT Narrative [facility] - 12/23/2024 11:45 PM CDT Conventional Warfarin Anticoagulant Therapy: INR Reference Range: 2.0-3.0 Intensive Warfarin Anticoagulant Therapy: INR Reference Range: 2.5-3.5 Talia Chacon MD LAB - COAGULATION ORDERABLES Final Result Performing Organization Address [facility] de Phone Number [facility] [address] [place] [address] * (ABNORMAL) CBC W AUTO DIFFERENTIAL (12/23/2024 11:04 PM CDT) [facility] WBC 3.2(L) 4.0 - 10.7 x10E9/L 12/23/2024 [...] ORDERABLES F inal Result Performing Organization Address [facility] Co de Phone Number [facility] [id number] [place] [address] * (ABNORMAL) B-TYPE NATRIURETIC PEPTIDE (12/23/2024 11:04 PM CDT) BNP 130(H) <=100 pg/mL 12/23/2024 11:54 PM CDT [facility] Blood BLOOD SPECIMEN / Unknown Venipuncture / Unknown 12/23/2024 11:04 PM CDT 12/23/2024 11:18 PM CDT Talia Chacon MD LAB - CHEMISTRY ORDERABLES Fi nal Result Performing Organization Address [facility] de Phone Number [facility] [id number] [place] [address] * (ABNORMAL) COMPREHENSIVE METABOLIC PANEL (12/23/2024 11:04 PM CDT) Glucose 130(H) 70 - 99 mg/dL 12/24/2024 12:16 AM CDT [facility] Sodium 137 136 - 145 mmol/L 12/24/2024 12:16 AM CDT [facility] Potassium 5.0 3.5 - 5.1 mmol/L 12/24/2024 12:16 AM CDT [facility] Chloride 99 98 - 107 mmol/L 12/24/2024 12:16 AM CDT [facility] CO2 21(L) 22 - 29 mmol/L 12/24/2024 12:16 AM CDT [facility] Calcium 9.3 8.4 - 10.4 mg/dL 12/24/2024 12:16 AM T [facility] Anion Gap 17(H) 6 - 16 mmol/L 12/24/2024 12:16 AM CDT [facility] BUN 62(H) 7 - 26 mg/dL 12/24/2024 12:16 AM CDT [facility] Creatinine 11.24(H) 0.72 - 1.25 mg/dL [...] (2020), per the National Kidney Foundation and [place] Society of Nephrology recommendations. Blood BLOOD SPECIMEN / Unknown Venipuncture / Unknown 12/23/2024 11:04 PM CDT 12/23/2024 11:18 PM CDT Talia Chacon MD LAB - CHEMISTRY ORDERABLES nal Result [facility] [address] [place] [address] from Last 3 Months Insurance MEDICAID - [place] [facility] MEDICARE ADV Advance Directives * Full Code (Latest Code Status on File) Date Activated Date Inactivated Comments 12/23/2024 9:49 PM 12/25/2024 7:24 PM Care Teams Strip Tank Tender Relationship Specialty Start Date End Date Libby Glass APRN-VACCINE MANAGER [address] [place] [address] PCP - General Internal Medicine 12/25/24
--- OUTSIDE RECORDS SUMMARY | 2025-01-17 18:56 | XMS_ITS ---
Author Organization [facility] [address] Address [address] [place] [address] Care Team Providers Care Instructor Of Spanish Name Role Phone Libby Glass NP Primary Care Provider [phone] Chaparro Holcomb MD Unavailable [phone] Leny Mares RN Unavailable Jane Mathew MA Unavailable [phone] Transplant Episode Kidney Candidate [facility] ([place], [place]) [facility] waitlisted on 11/02/2023 Marked as Inactive on 06/25/2024 Reason: 07 - Temporarily Too Sick Kidney CoordinatorLeny Mares RN Email: N/A Scores Score Value Updated Exceptions/Reas ons CPRA Not available EPTS (Calc) 44 01/17/2025 [place] Organ Diagnosis Organ Primary Contributory Kidney Polycystic Kidneys Care Team Name Role Phone Fax Email Leny Mares RN Kidney Coordinator [phone] N/A Jyoti Cardoso Primary Concrete Journeyman N/A N/A N/A Chaparro Holcomb MD Referring Physician [phone] N/A Rhea Harrington Waste Machine Tender [phone] N/A N/A Events Pre-Transplant Referred: 01/11/2023 Evaluation began: 04/09/2023 Committee: 10/31/2023 UNOS qualified: 05/19/2022 Center waitlisted: 11/02/2023 Dialysis History Dialysis History Start End Type Comments Center 05/19/2022 In-center Hemodialysis [facility] Dialysis [facility] Information Center Phone Fax Address [facility] [phone] [address] [facility] [address]
--- OUTSIDE RECORDS SUMMARY | 2025-01-17 18:56 | XMS_ITS | Clinical Summary ---
Author Organization [facility] [address] Address [address] [place] [address] Care Team Providers Care Supervisor Steno Pool Name Role Phone Libby Glass NP Primary Care Provider [phone] Chaparro Holcomb MD Unavailable Leny Mares RN Unavailable [phone] Jane Mathew MA Unavailable [phone] Allergies No known active allergies Medications aspirin [...] next few days. Prescribed lidocaine patches at nd. Assessment & Plan (06/27/2024 4:28 PM RN TRAUMA): Unclear etiology for chest pain. Initial workup [...] Assessment & Plan (06/27/2024 4:01 PM RN TRAUMA): On home Bumex 2mg, nifedipine, Imdur, hydral [...] Assessment & Plan (06/27/2024 4:01 PM RN TRAUMA): On schedule as outpatient - 06/26 iHD completed - Local Dialysis [facility]. - Nephrology ESRD Team following Resolved Problems Problem Noted Date Diagnosed Date Resolved Date BMI 25.0-25.9,adult 02/28/2023 07/01/19 25 Assessment & Plan (03/21/2024 1:04 PM CDT): Weight/BMI is in healthy range. Continue healthy lifestyle to maintain. Assessment & Plan (01/07/2024 1:34 PM CDT): Weight/BMI is in healthy range. Continue healthy lifestyle to maintain. Encounters Date Type Department Care Team Description 01/16/2025 DEBORAH IP Outreach [facility] Accountable Care Organization [address] [place] [address] Jane Mathew MA 01/02/2025 Telephone [facility] Medical Group Family Medicine [address] [place] [address] Libby Glass NP Medical Question/Miscellane ous 12/25/2024 DEBORAH IP Outreach [facility] [address] [place] [address] Ingris Hodgson MA 12/23/2024 Orders Only [facility] Health Information Management [address] [place] [address] Scanning, Provider 12/17/2024 Orders Only [facility] Health Information Management [address] [place] [address] Scanning, Provider 12/16/2024 Orders Only [facility] Medical [facility] Cardiology [address] [place] [address] Mita Major MD 2024 Orders Only [facility] Health Information Management [address] [place] [address] Scanning, Provider [address] [facility] Cardiology [address] 8th [place] [address] [place] [address] Giuliana Grullon CPhT 12/12/2024 Telephone [facility] Medical [facility] Cardiology [address] [place] [address] Mita Major MD 12/10/2024 Orders Only [facility] Health Information Management [address] [place] [address] Libby Glass NP 12/03/2024 10:00 AM CDT - 12/03/2024 11:59 PM CDT Hospital Encounter [facility] [address] [place] [address] ESRD (end stage renal disease) (HCC) Discharge Disposition: Discharge to home or self care 11/03/2024 10:00 AM CDT - 11/03/2024 11:59 PM CDT Hospital Encounter [facility] [address] [place] [address] ESRD (end stage renal disease) ([facility]) Discharge Disposition: Discharge to home or self care 10/17/[address] [facility] Trans[facility] Kidney [address] Mailstop [phone] [place] [address] Leny Mares RN from Last 3 Months Immunizations Immunization Administration [...] ESRD (end stage renal disease) on dialysis ([facility]) Left thyroid nodule Family History Medical History Relation Name Comments Kidney disease Brother Stroke Mother Janet Cancer Sister Alfreda Anesthesia problems Neg Hx Relation Name Status Comments Brother Father Mother Janet CVA age 72 Sister Alfreda Social History Tobacco Use Types Packs/Day Years Used Date Smoking Tobacco: Never Smokeless Tobacco: Never Tobacco Cessation:Counseling Given: Not Answered [facility] Utilities Answer Date Recorded In the past 12 months has [employer], gas, oil, or water company threatened to [...] often do you attend chur ch or yarsani services? 1 to 4 times per year 06/13/2024 Do you belong to any clubs o r organizations such as congregation groups, unions, fraternal or athletic groups, or [...] file Legal Sex Male 2:12 AM RN TRAUMA Gender Identity Not on file Sexual Orientation [...] DOCUMENT SCAN Routine 12/10/2024 5:09 PM CDT CARDIOLOGY DOCUMENT SCAN 12/10/2024 SCAN - RADIOLOGY/IMAGING 12/10/2024 HLA ANTIBODY SCREEN [...] C ANTIBODY Routine 05/30/2023 12:42 PM RN TRAUMA End stage renal disease (HCC) COLONOSCOPY Routine [...] CDT) Anatomical Region Laterality Modality Other us Mita Major MD CV CARDIAC SERVICES PROCEDU RES Final Result * Cardiology Document Scan (12/10/2024 5:09 PM CDT) Anatomical Region Laterality Modality Other us Mita Major MD CV CARDIAC SERVICES PROCEDU RES Final Result * SCAN - RADIOLOGY/IMAGING (12/10/2024) Anatomical Region Laterality Modality Other us Libby Glass NP Edited Result - Final * Cardiology Document Scan (12/10/2024) Anatomical Region Laterality Modality Other Provider Scanning CV CARDIAC SERVICES PROCEDURES Final Result * HLA Antibody Screen by PRA or SAB per Schedule (Class I and Class II) (12/03/2024 10:00 AM CDT) Blood 12/03/2024 10:0 0 AM CDT Narrative [facility] - RN TRAUMA Sample received in lab. PRA Screen ordered. [...] FDA- approved IVD kit (LABScreen PRA, [employer], [place], [place]). Interpretive comments: The percentage of beads with MFI > 750 is reported, which indicates the percentage of donor population estimated to be incompatible with the patient tested. PRA > 0% is consistent with alloimmunization to HLA. Testing performed at the [facility], [address] [address], [address]th floor, [place], [address]. [facility] # [id number]. Donna Paulson, Ph.D., Assistant Mechanic, HLA Laboratory Lazaro Hernandez M.D., Ph.D., Ward Secretary, HLA Laboratory Tammy Estevez, Ph.D., ISSAIA Ward Secretary, [facility] Current methodology and interpretive comments last revised on 09/26/2017. Wayne Abraham MD LAB BLOOD ORDERABLES Final Resu lt Performing Organization Address [facility] de Phone Number [facility] * HLA Antibody Screen by PRA or SAB per Schedule (Class I and Class II) (11/03/2024 10:00 AM CDT) Blood 11/03/2024 10:0 0 AM CDT Narrative HISTOT[facility]AC - RN TRAUMA Sample received in lab and stored. No testing performed at this time. Wayne Abraham MD LAB BLOOD ORDERABLES Final Resu lt Performing Organization Address [facility] de Phone Number [facility] * PSA screen (01/09/2024 11:10 AM CDT) PSA 0.82 < OR = 4.00 ng/mL [facility] Comment: The total PSA value from this assay system is standardized against the WHO standard. The test result will be approximately 20% lower when compared to the equimolar-standardized total PSA ([place]). Comparison of serial PSA results should be [...] Re sult Performing Organization Address [facility] Co de Phone Number [facility] [address] [place] [address] * Hepatitis C antibody Blood (05/30/2023 12:42 PM RN TRAUMA) Hep C Ab Nonreactive Nonreactive [facility] Comment:Antibodies to HCV no t detected. Does NOT exclude the possibility of recent exposure to HCV. Current interpretive data was last revised on 22 Blood 05/30/2023 12:4 2 PM RN TRAUMA 05/30/2023 1:22 PM RN TRAUMA Narrative [facility] - 05/30/2023 2:06 PM RN TRAUMA This lab is being obtained as part of a Kidney transplant evaluation, is time sensitive, and should only be drawn during the evaluation visit at [facility]. Leta Rudolph MD LAB MICROBIOLOGY - GENERAL ORDERABLES Final Result [facility] Department [place] [address] * Colonoscopy (10/27/2022 10:35 AM CDT) Anatomical Region Laterality Modality Other Historical Provider ENDOSCOPY PROCEDURES Tori l Result from Last 3 Months or Most Recently Relevant to Health Maintenance Insurance [facility]IC[facility] Address: [address] [address] [place] [address] UHC MEDICARE ADVANTAGE [facility] Address: [address] [address] [place] [address] UHC MEDICARE ADVANTAGE [facility] Address: [address] [address] [place] [address] IDPA Advance Directives For more information, please contact: [phone] * Full Code (Latest Code Status on File) Date Activated Date Inactivated Comments 08/15/2024 7:16 PM 08/16/2024 4:50 PM * Full Code Date Activated Date Inactivated Comments 06/25/2024 1:35 AM 06/27/2024 10:47 PM * Full Code Date Activated Date Inactivated Comments 10/17/2023 10:40 AM 10/19/2023 5:30 PM Care Teams Supervisor Steno Pool Relationship Specialty Start Date End Date Libby Glass NP [address] [facility] [address] [place] [address] PCP - General Internal Medicine 10/27/22 Chaparro Holcomb MD [address] [facility] [address] [place] [address] Referring Physician Nephrology 10/27/22 Leny Mares, RN [address] [facility] [address] [place] [address] Volunteer Firefighter 02/15/23 Jane Mathew MA [address] [place] [address] [address] [facility] [address] [place] [address] ACO Care Teacher Dancing 01/16/25 [facility] Dentist 08/23/23
--- OUTSIDE RECORDS SUMMARY | 2025-01-17 18:56 | XMS_ITS | Encounter Summary ---
Author Organization [facility] Healthcare Address [address] [place] [address] Care Team Providers Care System Planning Engineer Name Role Phone Libby Glass NP Primary Care Provider [phone] Chaparro Holcomb MD Unavailable [phone] Leny Mares RN Unavailable Ingris Hodgson MA Unavailable Jane Mathew MA Unavailable Encounter Details Date Type Department Care Team (Late st Contact Info) Description 07/11/2024 Documentation [facility] [address] [place] [address] Cheyanne Combs RN Social History Tobacco Use Types Packs/Day Years Used Date Smoking Tobacco: Never Smokeless Tobacco: Never [facility] Utilities Answer Date Recorded In the past 12 months has [employer], gas, oil, or water [employer] threatened to shut off services in your [...] How often do you attend chur or mormon services? 1 to 4 times per year 06/13/2024 Do you belong to any clubs o r organizations such as confucianist groups, unions, fraternal or athletic groups, or [...] No 06/12/2023 Housing Stability Vital Sign Answer Nikolia e Recorded In the last 12 months, was t here a time when you were not able to pay the mortgage or rent on time? No 06/13/2024 In the past 12 months, how m any times have you moved where you were living? 1 06/13/2024 At any time in the past 12 m [place], were you homeless or living in a prison (including now)? No 06/13/2024 Personal Safety Answer Date Recorded Have you ever been in or are you currently in a harmful physical or emotional relationship or is someone making you feel afraid or unsafe? 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 [address] [place] [address] PCP - General Internal Medicine 10/27/22 Chaparro Holcomb MD [address] [facility] [address] [place] [address] Referring Physician Nephrology 10/27/22 Leny Maers, TERRI [address] [facility] [address] [place] [address] Novelty Dipper 02/15/23 Ingris Hogdson MA [address] [place] [address] ACO Care Administrative Sales Assistant 12/25/24 12/25/24 Jane Mathew MA [address] [place] [address] ACO Care Administrative Sales Assistant 01/16/25 [facility] Dentist 08/23/23 documented as of this encounter
--- OUTSIDE RECORDS SUMMARY | 2025-01-17 18:56 | XMS_ITS ---
Author Organization [facility] [place] [address] Address [address] [place] [address] Care Team Providers Care Store Person Name Role Phone Libby Glass NP Primary Care Provider [phone] Chaparro Holcomb MD Unavailable [phone] Leny Mares RN Unavailable Jane Mathew MA Unavailable [phone] Dialysis Access Sites Type Status Location Placement [...] HEPATITIS C ANTIBODY Routine 05/30/2023 12:42 PM DICTATING TRANSCRIBING MACHINE SERVICER End stage renal disease (HCC) COLONOSCOPY Routine [...] ks. Assessment & Plan (06/27/2024 4:28 PM DICTATING TRANSCRIBING MACHINE SERVICER): Unclear etiology for chest pain. Initial workup [...] dc Assessment & Plan (06/27/2024 4:01 PM DICTATING TRANSCRIBING MACHINE SERVICER): On home Bumex 2mg, nifedipine, Imdur, hydral [...] phoslo Assessment & Plan (06/27/2024 4:01 PM DICTATING TRANSCRIBING MACHINE SERVICER): On schedule as outpatient - 06/26 iHD completed - [facility]. - Nephrology ESRD Team following Immunizations Immunization Administration Dates Next Due Hep B Vaccine 11/01/2023, 3,08/25/2022, 3 Influenza, Unspecified 03/21/2024,2022,06/04/2022(Deferred: Patient Refused),03/18/2022 PPD TEST 10/09/2023, 3,06/21/2022, 2 Pneumococcal Polysaccharide PPV23 11/14/2022 Social History Tobacco Use Types Packs/Day Years Used Date Smoking Tobacco: Never Smokeless Tobacco: Never Tobacco Cessation:Counseling Given: Not Answered [facility] Utilities Answer Date Recorded In the past 12 months has e electric, gas, oil, or water company [...] often do you attend chur ch or yazidism services? 1 to 4 times per year [...] place to sleep or slept in a fci (including now)? No 06/12/2023 Housing Stability Vital Sign Answer Nikolai e Recorded In the last 12 months, was t here a time when you were not able to pay the mortgage or rent on time? No 06/13/2024 In the past 12 months, how m any times have you moved where you were living? 1 06/13/2024 At any time in the past 12 m [facility], were you homeless or living in a fci (including now)? No 06/13/2024 Personal Safety Answer Date Recorded Have you ever been in or are you currently in a harmful physical or emotional relationship or is someone making you feel afraid or unsafe? Denies 08/15/2024 Sex and Gender Information Value Date Recorded Sex Assigned at Not on file Legal Sex Male 2:12 AM DICTATING TRANSCRIBING MACHINE SERVICER Gender Identity Not on file Sexual Orientation [...] PM CDT) Anatomical Region Laterality Modality Other Result [facility] Mita Major MD CV CARDIAC SERVICES PROCEDU RES Final Result * SCAN - RADIOLOGY/IMAGING (12/10/2024) Anatomical Region Laterality Modality Other Libby Glass PATTERN REPAIR PERSON Edited Result - Final * Cardiology Document Scan (12/10/2024) Anatomical Region Laterality Modality Other us Provider Scanning CV CARDIAC SERVICES PROCEDURES Final Result * HLA Antibody Screen by PRA or SAB per Schedule (Class I and Class II) (12/03/2024 10:00 AM CDT) Blood 12/03/2024 10:0 0 AM CDT Narrative [facility]IST[facility] - DICTATING TRANSCRIBING MACHINE SERVICER Sample received in lab. PRA Screen ordered. Wayne Abraham MD LAB BLOOD ORDERABLES Final Resu lt Performing Organization Address [facility]/ZIP Co de Phone Number HISTOTR[facility] * HLA [...] a method developed and validated by the [facility] HLA laboratory based on an FDA- approved IVD kit (LABScreen PRA, [email or web address], [place], [place]). Interpretive comments: The percentage of beads with MFI > 750 is reported, which indicates the percentage of donor population estimated to be incompatible with the patient tested. PRA > 0% is consistent with alloimmunization to HLA. Testing performed at the [facility] HLA Laboratory, [address] [place] [address], 5th floor, [place], [address]. IA # [id number]. Donna Paulson, Ph.D., Electronic Imaging System Operator, HLA Laboratory Lazaro Hernandez M.D., Ph.D., Special Effects Specialist, HLA Laboratory Tammy Estevez, Ph.D., CLIA Special Effects Specialist, [facility] Clinical Laboratories Current methodology and interpretive comments last revised on 09/26/2017. Wayne Abraham MD LAB BLOOD ORDERABLES Final Resu lt Performing Organization Address [facility]/ZIP Co de Phone Number HISTOTRAC * HLA Antibody Screen by PRA or SAB per Schedule (Class I and Class II) (11/03/2024 10:00 AM CDT) Blood 11/03/2024 10:0 0 AM CDT Narrative HISTOT[facility] - DICTATING TRANSCRIBING MACHINE SERVICER Sample received in lab and stored. No testing performed at this time. us Wayne Abraham MD LAB BLOOD ORDERABLES Final Resu lt Performing Organization Address [facility] Co de [...] ORDERABLES Final Re sult Performing Organization Address [facility] Co de Phone Number [facility] [address] [place] [address] * Hepatitis C antibody Blood (05/30/2023 12:42 PM DICTATING TRANSCRIBING MACHINE SERVICER) Hep C Ab Nonreactive Nonreactive [facility] Comment:Antibodies to HCV no t detected. Does NOT exclude the possibility of recent exposure to HCV. Current interpretive data was last revised on 22 Blood 05/30/2023 12:4 2 PM DICTATING TRANSCRIBING MACHINE SERVICER 05/30/2023 1:22 PM DICTATING TRANSCRIBING MACHINE SERVICER Narrative GHASSAN MUELLER - 05/30/2023 2:06 PM DICTATING TRANSCRIBING MACHINE SERVICER This lab is being obtained as part of a Kidney transplant evaluation, is time sensitive, and should only be drawn during the evaluation visit at [facility]. us Leta Rudolph MD LAB MICROBIOLOGY - GENERAL ORDERABLES Final Result [facility] [place] [address] * Colonoscopy (10/27/2022 10:35 AM CDT) Anatomical Region Laterality Modality Other us Historical Provider ENDOSCOPY PROCEDURES Tori quintana Result from Last 3 Months or Most Recently Relevant to Health Maintenance
--- OUTSIDE RECORDS SUMMARY | 2025-01-17 18:56 | XMS_ITS | Encounter Summary ---
Author Organization [facility] Healthcare Address [address] [place] [address] Care Team Providers Care Land Development Manager Name Role Phone Libby Glass NP Primary Care Provider [phone] Chaparro Holcomb MD Unavailable [phone] Leny Mares RN Unavailable Ingris Hodgson MA Unavailable Jane Mathew MA Unavailable Encounter Details Date Type Department Care Team (Late st Contact Info) Description 2024 Orders Only [facility] Health Information Management [address] [place] [id number] Scanning, Provider Social History Tobacco Use Types Packs/Day Years Used Date Smoking Tobacco: Never Smokeless Tobacco: Never [facility] Utilities Answer Date Recorded In the past 12 months has [employer], gas, oil, or water [employer] threatened to shut off services in your [...] How often do you attend chur or roman catholic services? 1 to 4 times per year 06/13/2024 Do you belong to any clubs o r organizations such as christian groups, unions, fraternal or athletic groups, or [...] place to sleep or slept in a [place] (including now)? No 06/12/2023 Housing Stability Vital [...] were you homeless or living in a [place] (including now)? No 06/13/2024 Personal Safety Answer Date Recorded Have you ever been in or are you currently in a harmful physical or emotional relationship or is someone making you feel afraid or unsafe? 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 Gender Identity Not on file Sexual Orientation Not on file documented as of this encounter Plan of Treatment Not on file documented as of this encounter Procedures Procedure Name Priority Date/Time Associated Diagnosis Comments CARDIOLOGY DOCUMENT SCAN 2024 documented in this encounter Results * Cardiology Document Scan (2024) Anatomical Region Laterality Modality Other Provider Scanning CV CARDIAC SERVICES PROCEDURES Final Result documented in this encounter Visit Diagnoses Not on filedocumented in this encounter Care Teams Land Development Manager Relationship Specialty Start Date End Date Libby Glass NP [address] [facility] [address] [place] [address] PCP - General Internal Medicine 10/27/22 Chaparro Holcomb MD [address] [facility] [facility] [address] [place] [address] Referring Physician Nephrology 10/27/22 Leny Mares, TERRI [address] [facility] [address] [place] [address] High Raw Sugar Boiler 02/15/23 Ingris Hodgson MA [address] [place] [address] [address] [place] [address] ACO Care Expansion Joint Finisher 12/25/24 12/25/24 Jane Mathew, COMFORT [address] [place] [address] ACO Care Expansion Joint Finisher 01/16/25 [facility]ist 08/23/23 documented as of this encounter
--- NOTE | 2025-01-17 18:58 | ED_ITS ---
HPI - General Adult General Chief complaint: Urogenital-Male <Harjinder Castañeda MD - Last Filed: 01/17/25 19:05> Stated complaint: fall today, hematuria <Harjinder Castañeda MD - Last Filed: 01/17/25 19:05> Time Seen by Provider: 01/17/25 16:36 <Harjinder Castañeda MD - Last Filed: 01/17/25 19:05> Source: patient <Harjinder Castañeda MD - Last Filed: 01/17/25 19:05> Mode of arrival: EMS <Harjinder Castañeda MD - Last Filed: 01/17/25 19:05> Limitations: no limitations <Harjinder Castañeda MD - Last Filed: 01/17/25 19:05> History of Present Illness HPI narrative: 59-year-old with a history of ESRD on hemodialysis was brought in by EMS from the local library of after a fall. Patient states that he went to the library from his brother's house lost balance fell in the pool with full of stones,he is not sure about LOC . he also states he has been urinating blood. < Harjinder Castañeda MD - Last Filed: 01/17/25 19:05> Onset (ago): hour(s) (1) <Harjinder Castañeda MD - Last Filed: 01/17/25 19:05> Location: head <Harjinder Castañeda MD - Last Filed: 01/17/25 19:05> Severity: mild <Harjinder Castañeda MD - Last Filed: 01/17/25 19:05> Relieving factors: none <Harjinder Castañeda MD - Last Filed: 01/17/25 19:05> Exacerbating factors: none <Harjinder Castañeda MD - Last Filed: 01/17/25 19:05> Related Data Home medications: Home Medications ?Medication ?Instructions ?Recorded ?Confirmed ?Last Taken ?Type amino acids-protein hydrolysate 16 30 ml PO DAILY 12/10/24 01/11/25 01/02/25 History gram-100 kcal/30 mL oral liquid (Liquacel) cholecalciferol (vitamin D3) 250 250 mcg PO DAILY 12/10/24 01/11/25 01/11/25 History mcg (10,000 unit) capsule isosorbide mononitrate 30 mg 30 mg PO TID 12/10/24 01/12/25 01/11/25 History tablet,extended release 24 hr omega 4-sba-rwy-fish oil 900 1 cap PO DAILY 12/10/24 01/12/25 01/11/25 History mg-1,400 mg capsule,delayed release <Harjinder Castañeda MD - Last Filed: 01/17/25 19:05> Allergies/adverse reactions: Allergies Allergy/AdvReac Type Severity Reaction Status Date / Time No Known Allergies Allergy Verified 01/17/25 16:30 <Harjinder Castañeda MD - Last Filed: 01/17/25 19:05> Review of Systems 2 Review of Systems: All systems reviewed & are unremarkable except as noted in HPI and below <Harjinder Castañeda MD - Last Filed: 01/17/25 19:05> Constitutional: Constitutional: Reports no additional constitutional complaints <Harjinder Castañeda MD - Last Filed: 01/17/25 19:05> Eyes: Eyes: Reports no additional eye complaints <Harjinder Castañeda MD - Last Filed: 01/17/25 19:05> ENT: Reports system reviewed and no additional complaints, except as documented <Harjinder Castañeda MD - Last Filed: 01/17/25 19:05> Cardiovascular: Cardiovascular: Reports no additional cardiovascular complaints <Harjinder Castañeda MD - Last Filed: 01/17/25 19:05> Respiratory: Respiratory: Reports no additional respiratory complaints < Harjinder Castañeda MD - Last Filed: 01/17/25 19:05> Gastrointestinal: Gastrointestinal: Reports no additional gastrointestinal complaints <Harjinder Castañeda MD - Last Filed: 01/17/25 19:05> Musculoskeletal: Musculoskeletal: Reports no additional musculoskeletal complaints <Harjinder Castañeda MD - Last Filed: 01/17/25 19:05> Integumentary/Breasts: Skin/Breast: Reports system reviewed and no additional complaints, except as docu <Harjinder Castañeda MD - Last Filed: 01/17/25 19:05> Neurologic: Reports system reviewed and no additional complaints, except as documented <Harjinder Castañeda MD - Last Filed: 01/17/25 19:05> [facility] Past Medical History Medical History: Medical History (Updated 01/18/25 @ 00:00 by Pushpa Giang) Hyperkalemia Cardiomyopathy Acute systolic heart failure Acute diastolic CHF (congestive heart failure) Anemia of chronic disease Flash pulmonary edema Adult polycystic kidney disease <Harjinder Castañeda MD - Last Filed: 01/17/25 19:05> Surgical History Surgical History: Surgical History No significant past surgical history <Harjinder Castañeda MD - Last Filed: 01/17/25 19:05> Family History Family History: Family History Sibling Heart disease Fraternal twin brother had CABG X4. History of quadruple bypass Sibling Cancer Sibling ESRD on dialysis Mother Old age of old age Cerebrovascular accident Father Heart disease around 60 y.o. of uncertain type of heart disease <Harjinder Castañeda MD - Last Filed: 01/17/25 19:05> Social History Social History: Social History Social History: Negative for alcohol cigarettes or tobacco. 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 His brother Gavino romero is the poa. He has One child who is an adult daughter. He is . Code status full code Smoking status: Never smoker Second hand tobacco smoke exposure: No Alcohol intake: never Substance use: never Substance use type: does not use Do You Feel Safe in your Home?: Yes Lack of Transportation: YES Lack of Food: Never True Current Housing: I Have Housing Concerned About Future Housing: No Difficulty Paying Gas/Electric Bills: No Difficulty Paying for Meds: No Currently Unemployed: No Education: Master's Degree or Higher Difficulty w/ Childcare or Family Care: No Spiritual care concerns: No <Harjinder Castañeda MD - Last Filed: 01/17/25 19:05> Course Course Emergency Course: Patient comfortably resting on the bed and it did inform him about his lab work, CT findings he will not give us a urine sample yet. <Harjinder Castañeda MD - Last Filed: 01/17/25 19:05> Patient comfortably resting on the bed and it did inform him about his lab work, CT findings he will not give us a urine sample yet. Patient care assumed by previous provider pending urine sample to test for infection prior to discharge home. Patient's workup was unremarkable here. No leukocytosis or anemia. Normal platelet count. Hemoglobin 10.2 and his baseline. Electrolytes are normal no signs of hyperkalemia. BUN and creatinine around his baseline and improved from his recent hospital admission. Normal LFTs. Urinalysis has white blood cells, red blood cells leukocyte Estrace likely infectious in nature given the negative CT scan today. 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 Head CT shows no acute intracranial process. CT abdomen pelvis shows chronic kidney disease as well as some bladder wall thickening consistent with cystitis and his urinary tract infection signs. Also has mild fecal impaction. Other incidental chronic findings but no acute traumatic injuries identified. No kidney stones. Patient was given a magnesium citrate bottle and he wished to take this home with him. Patient remains hemodynamically stable and asymptomatic during his stay here in the emergency department. Safe for discharge on Keflex with PCP follow-up, regular scheduled dialysis sessions, and return precautions. <Grant Lake MD - Last Filed: 01/18/25 04:42> Vital Signs Vital signs: Vital Signs Temperature 36.6 C 01/17/25 16:24 Pulse Rate 87 01/17/25 16:24 Respiratory Rate 18 01/17/25 16:24 Blood Pressure 165/96 H 01/17/25 16:24 Pulse Oximetry 100 01/17/25 16:24 Oxygen Delivery Room Air 01/17/25 16:24 Temperature 36.6 C 01/17/25 16:24 Pulse Rate 84 01/17/25 21:39 Respiratory Rate 19 01/17/25 21:39 Blood Pressure 159/102 H 01/17/25 21:39 Pulse Oximetry 100 01/17/25 21:39 Oxygen Delivery Room Air 01/17/25 16:24 <Harjinder Castañeda MD - Last Filed: 01/17/25 19:05> Vital Signs Temperature 36.6 C 01/17/25 16:24 Pulse Rate 87 01/17/25 16:24 Respiratory Rate 18 01/17/25 16:24 Blood Pressure 165/96 H 01/17/25 16:24 Pulse Oximetry 100 01/17/25 16:24 Oxygen Delivery Room Air 01/17/25 16:24 Temperature 36.6 C 01/17/25 16:24 Pulse Rate 84 01/17/25 21:39 Respiratory Rate 19 01/17/25 21:39 Blood Pressure 159/102 H 01/17/25 21:39 Pulse Oximetry 100 01/17/25 21:39 Oxygen Delivery Room Air 01/17/25 16:24 <Grant Lake MD - Last Filed: 01/18/25 04:42> Medical Decision Making Differential Diagnosis Differential Diagnosis: Head injury, kidney stone, kidney infection system <Harjinder Castañeda MD - Last Filed: 01/17/25 19:05> Medical Records Medical records reviewed: Yes I reviewed the external patient's medical records. <Harjinder Castañeda MD - Last Filed: 01/17/25 19:05> Vital Signs Vital Signs: Vital Signs Temperature 36.6 C 01/17/25 16:24 Pulse Rate 87 01/17/25 16:24 Respiratory Rate 18 01/17/25 16:24 Blood Pressure 165/96 H 01/17/25 16:24 Pulse Oximetry 100 01/17/25 16:24 Oxygen Delivery Room Air 01/17/25 16:24 Temperature 36.6 C 01/17/25 16:24 Pulse Rate 84 01/17/25 21:39 Respiratory Rate 19 01/17/25 21:39 Blood Pressure 159/102 H 01/17/25 21:39 Pulse Oximetry 100 01/17/25 21:39 Oxygen Delivery Room Air 01/17/25 16:24 <Harjinder Castañeda MD - Last Filed: 01/17/25 19:05> Vital Signs Temperature 36.6 C 01/17/25 16:24 Pulse Rate 87 01/17/25 16:24 Respiratory Rate 18 01/17/25 16:24 Blood Pressure 165/96 H 01/17/25 16:24 Pulse Oximetry 100 01/17/25 16:24 Oxygen Delivery Room Air 01/17/25 16:24 Temperature 36.6 C 01/17/25 16:24 Pulse Rate 84 01/17/25 21:39 Respiratory Rate 19 01/17/25 21:39 Blood Pressure 159/102 H 01/17/25 21:39 Pulse Oximetry 100 01/17/25 21:39 Oxygen Delivery Room Air 01/17/25 16:24 <Grant Lake MD - Last Filed: 01/18/25 04:42> Lab Data Lab results reviewed: Yes I reviewed the patient's lab results. <Harjinder Castañeda MD - Last Filed: 01/17/25 19:05> Result diagrams: 01/17/25 17:34 01/17/25 17:35 <Harjinder Castañeda MD - Last Filed: 01/17/25 19:05> Labs: Lab Results 01/17/25 01/17/25 01/17/25 Range/Units 17:34 17:35 20:48 WBC 4.9 (4.5-10.0) K/mm3 RBC 3.44 L (4.6-6.20) M/mm3 Hgb 10.2 L (14.0-18.0) g/dL Hct 31.4 L (42.0-52.0) % MCV 91.3 (80-100) fl MCH 29.7 (26-34) pg MCHC 32.5 (32-36) g/dl RDW 16.8 H (11.5-14.5) % Plt Count 179 (150-375) k/mm3 MPV 9.9 (7.4-10.4) fl Immature Gran % (Auto) 0.2 (0-0.5) % Neut % (Auto) 62.5 (45.5-73.1) % Lymph % (Auto) 21.4 (18.3-44.2) % [place] % (Auto) 9.4 H (2.6-8.5) % Eos % (Auto) 6.1 H (0-4.4) % Baso % (Auto) 0.4 (0.2-1.2) % Lymph # (Auto) 1.05 (0.9-3.2) K/mm3 [place] # (Auto) 0.5 (0.1-0.6) K/mm3 Eos # (Auto) 0.3 (0-0.3) K/mm3 Baso # (Auto) 0.0 (0.0-0.1) K/mm3 Abs Immat Gran (auto) 0.01 (0.00-0.031) K/mm3 Absolute Neuts (auto) 3.1 (1.3-6.7) K/mm3 Absolute Nucleated RBC 0.000 (0.0-0.012) K/mm3 Nucleated RBC % 0.0 (0.0-0.2) % PT 13.1 (11.1-14.7) Seconds INR 1.0 Sodium 140 (137-145) mmol/L Potassium 4.6 (3.4-5.0) mmol/L Chloride 105 (98-107) mmol/L Carbon Dioxide 17 L (22-30) mmol/L Anion Gap 18 H (4-12) mmol/L BUN 75 H D (9-20) mg/dL Creatinine 15.03 H (0.7-1.3) mg/dL Estim Creat Clear Calc 5 ml/min Estimated GFR 3 L (59 - ) Glucose 87 (65-110) mg/dL Calcium 8.6 (8.4-10.2) mg/dL Total Bilirubin 0.5 (0.2-1.3) mg/dL AST 31 (17-59) U/L ALT 18 (6-50) U/L Alkaline Phosphatase 69 (38-126) U/L Total Protein 8.0 (6.3-8.2) g/dL Albumin 4.4 (3.5-5.1) g/dL Urine Color Light orange (Yellow) Urine Appearance Turbid H (Clear) Urine pH 7.5 (5.0-9.0) Ur Specific [place] 1.020 (1.001-1.035) Urine Protein 3+ H (Negative) mg/dL Urine Glucose (UA) 1+ H (Negative) mg/dL Urine Ketones Negative (Negative) mg/dL Ur Blood (Man) 3+ H (Negative) Urine Nitrate Negative (Negative) Urine Bilirubin Negative (Negative) Urine Urobilinogen 0.2 (<2.0) mg/dL Leukocyte Esterase Rfl 1+ H (Negative) KARINA/UL Urine RBC >100 H (0-2) /hpf Urine WBC 31-50 H (0-3) /hpf <Harjinder Castañeda MD - Last Filed: 01/17/25 19:05> Lab Results 01/17/25 01/17/25 01/17/25 Range/Units 17:34 17:35 20:48 WBC 4.9 (4.5-10.0) K/mm3 RBC 3.44 L (4.6-6.20) M/mm3 Hgb 10.2 L (14.0-18.0) g/dL Hct 31.4 L (42.0-52.0) % MCV 91.3 (80-100) fl MCH 29.7 (26-34) pg MCHC 32.5 (32-36) g/dl RDW 16.8 H (11.5-14.5) % Plt Count 179 (150-375) k/mm3 MPV 9.9 (7.4-10.4) fl Immature Gran % (Auto) 0.2 (0-0.5) % Neut % (Auto) 62.5 (45.5-73.1) % Lymph % (Auto) 21.4 (18.3-44.2) % [place] % (Auto) 9.4 H (2.6-8.5) % Eos % (Auto) 6.1 H (0-4.4) % Baso % (Auto) 0.4 (0.2-1.2) % Lymph # (Auto) 1.05 (0.9-3.2) K/mm3 [place] # (Auto) 0.5 (0.1-0.6) K/mm3 Eos # (Auto) 0.3 (0-0.3) K/mm3 Baso # (Auto) 0.0 (0.0-0.1) K/mm3 Abs Immat Gran (auto) 0.01 (0.00-0.031) K/mm3 Absolute Neuts (auto) 3.1 (1.3-6.7) K/mm3 Absolute Nucleated RBC 0.000 (0.0-0.012) K/mm3 Nucleated RBC % 0.0 (0.0-0.2) % PT 13.1 (11.1-14.7) Seconds INR 1.0 Sodium 140 (137-145) mmol/L Potassium 4.6 (3.4-5.0) mmol/L Chloride 105 (98-107) mmol/L Carbon Dioxide 17 L (22-30) mmol/L Anion Gap 18 H (4-12) mmol/L BUN 75 H D (9-20) mg/dL Creatinine 15.03 H (0.7-1.3) mg/dL Estim Creat Clear Calc 5 ml/min Estimated GFR 3 L (59 - ) Glucose 87 (65-110) mg/dL Calcium 8.6 (8.4-10.2) mg/dL Total Bilirubin 0.5 (0.2-1.3) mg/dL AST 31 (17-59) U/L ALT 18 (6-50) U/L Alkaline Phosphatase 69 (38-126) U/L Total Protein 8.0 (6.3-8.2) g/dL Albumin 4.4 (3.5-5.1) g/dL Urine Color Light orange (Yellow) Urine Appearance Turbid H (Clear) Urine pH 7.5 (5.0-9.0) Ur Specific [place] 1.020 (1.001-1.035) Urine Protein 3+ H (Negative) mg/dL Urine Glucose (UA) 1+ H (Negative) mg/dL Urine Ketones Negative (Negative) mg/dL Ur Blood (Man) 3+ H (Negative) Urine Nitrate Negative (Negative) Urine Bilirubin Negative (Negative) Urine Urobilinogen 0.2 (<2.0) mg/dL Leukocyte Esterase Rfl 1+ H (Negative) KARINA/UL Urine RBC >100 H (0-2) /hpf Urine WBC 31-50 H (0-3) /hpf <Grant Lake MD - Last Filed: 01/18/25 04:42> Imaging Data Radiologist's impression: ITS Impressions Head CT 01/17/25 17:19 IMPRESSION: No acute intracranial process. Abdomen/Pelvis CT 01/17/25 17:22 IMPRESSION: Cardiomegaly with trace pericardial effusion. Cholecystectomy kidney disease. Distal ureters are difficult to trace given the distortion of normal anatomy and paucity of abdominal fat. No definite new calcification in the expected pathways of the ureters. Possible mild fecal impaction. Bladder wall thickening may be secondary to cystitis or outlet obstruction from prostatomegaly. <Harjinder Castañeda MD - Last Filed: 01/17/25 19:05> Discharge Plan Discharge Clinical Impression: End stage renal disease, Head injury, UTI (urinary tract infection) <Harjinder Castañeda MD - Last Filed: 01/17/25 19:05> Patient Disposition: Home <Harjinder Castañeda MD - Last Filed: 01/17/25 19:05> Condition: Stable <Harjinder Castañeda MD - Last Filed: 01/17/25 19:05> Instructions: Head Injury (ED) <Harjinder Castañeda MD - Last Filed: 01/17/25 19:05> Additional Instructions: Your scans and labs as well as imaging did not show any acute injuries or abnormalities. You do have a urinary infection based on your urinalysis results. We will treat this with antibiotics for next 7 days. Take the antibiotics twice daily and go to your dialysis sessions. If you have any worsening or new symptoms please return to the emergency department at that time. <Harjinder Castañeda MD - Last Filed: 01/17/25 19:05> Patient Language: Micronesian <Harjinder Castañeda MD - Last Filed: 01/17/25 19:05> Prescriptions: New cephalexin 500 mg capsule 500 mg PO Q12H 7 Days Qty: 14 0RF polyethylene glycol 3350 [Miralax] 17 gram/dose powder 17 g PO BID Qty: 238 0RF No Action calcium acetate(phosphat bind) 667 mg Tablet 667 mg PO TID Qty: 90 1RF aspirin 81 mg Tablet,Delayed Release (Dr/Ec) 81 mg PO QAM Qty: 30 1RF bumetanide 2 mg tablet 2 mg PO DAILY Qty: 60 1RF omega 8-cwg-ukd-fish oil 900-1,400 mg capsule,delayed release(DR/EC) 1 cap PO DAILY cholecalciferol (vitamin D3) 250 mcg (10,000 unit) capsule 250 mcg PO DAILY Liquacel 16-100 gram-kcal/30 mL liquid 30 ml PO DAILY isosorbide mononitrate 30 mg Tablet Extended Release 24 Hr 30 mg PO TID atorvastatin 40 mg Tablet 40 mg PO DAILY Qty: 60 0RF nifedipine 90 mg tablet extended release 24hr 90 mg PO DAILY Qty: 60 0RF bisacodyl [Laxative (bisacodyl)] 5 mg Tablet,Delayed Release (Dr/Ec) 5 mg PO DAILY PRN (Reason: Constipation) Qty: 30 0RF albuterol sulfate [Ventolin HFA] 90 mcg/actuation HFA aerosol inhaler 1 inh inhalation QID PRN (Reason: shortness of breath or wheezing) Qty: 8.5 0RF (DME) compressor, for nebulizer Device See Rx Instructions .Route Qty: 1 0RF Rx Instructions: As directed hydralazine 100 mg tablet 100 mg PO TID Qty: 270 3RF <Harjinder Castañeda MD - Last Filed: 01/17/25 19:05> Follow-up/Referrals: Quan,DEMI Souza [Primary Care Provider] - <Harjinder Castañeda MD - Last Filed: 01/17/25 19:05> Time of Disposition: 21:33 <Harjinder Castañeda MD - Last Filed: 01/17/25 19:05> 21:33 <Grant Lake MD - Last Filed: 01/18/25 04:42>
--- NOTE | 2025-01-17 21:12 | PC.NURSE ---
Pt taken to bathroom in W/C x1 assist
[2025-01-17 21:13] LABS: Add Urine Microscopic? YES
[2025-01-17 21:14] LABS: Appearance Urine Turbid (Clear); Glucose Urine UA 1+ mg/dL (Negative); Specific Grav Ur 1.020 (1.001-1.035)
[2025-01-17 21:15] LABS: Leukocyte Esterase Ur 1+ LEU/UL (Negative); Nitrate Urine Negative (Negative)
[2025-01-17] MEDS: CEPHALEXIN 500 MG CAPSULE PO (21:37)
--- NOTE | 2025-01-17 21:43 | PC.NURSE ---
Pt states he is not ready for discharge, made aware
--- NOTE | 2025-01-17 23:35 | PC.NURSE ---
Pt unhappy with discharge. States that he is pissing blood and constipated. Explained to pt that he was given a dose of antibiotics and RX for antibiotics and that it was very important that he picks them up. States that he does not think he should be discharged and insisting to speak to the Hose Tender. This RN spoke with Dr Lake who is agreeable to order Mag Citrate to help with constipation. Robyn, Hose Tender here to speak with pt. Cab voucher provided to assist with a ride home.
[2025-01-17] MEDS: MAGNESIUM CITRATE 300 ML BTL PO (23:47)
== END 2025-01-17 23:49 | disposition home or self-care (01) ==
PROVIDERS: Emergency Provider Family Medicine; PCP Nurse Practitioner Family
DX: S09.90XA Unspecified injury of head, initial encounter (principal); N39.0 Urinary tract infection, site not specified; N18.6 End stage renal disease; Z99.2 Dependence on renal dialysis; I42.9 Cardiomyopathy, unspecified; D63.8 Anemia in other chronic diseases classified elsewhere; Z79.899 Other long term (current) drug therapy; R94.31 Abnormal electrocardiogram [ECG] [EKG]; W17.89XA Other fall from one level to another, initial encounter
CPT/HCPCS: 36415; 70450; 74176; 80053; 81001; 85025; 85610; 87086; 93005; 99284; A9270